=== PATIENT | female | born 1960 | race Caucasian/White ===

== ENCOUNTER 2018-10-13 23:34 | Inpatient (IN) | payer MEDICARE ==
[2018-10-13] MEDS ORDERED: DILTIAZEM DRIP BOLUS FROM BAG 1 MG SOLN IV ONE (23:44)
[2018-10-13] MEDS ORDERED: ACETAMINOPHEN TAB 325 MG TAB PO STA (23:44)
[2018-10-13] MEDS ORDERED: DILTIAZEM 125 MG in SODIUM CHLORIDE 0.9% 100 ML IV SCH (23:45)
[2018-10-13 23:48] LABS: Glucose,Whole Blood 187 mg/dL (75-99)
[2018-10-13] MEDS: SODIUM CHLORIDE 0.9% 500 ML 500 ML IV SCH ×2 (23:51→23:52)
--- NOTE | 2018-10-13 23:58 | ED ---
Nausea/Vomiting/Diarrhea HPI - General Stated complaint: altered mental status Time Seen by Provider: 10/13/18 23:41 Source: patient, EMS Mode of arrival: EMS Limitations: no limitations, altered mental status (Patient appears delirious) - History of Present Illness Initial comments: This patient is a 58-year-old woman brought by an ambulance to be evaluated for "feeling sick." The patient states that the symptoms started a number of hours ago with nausea, and then she has had she believes around 10 episodes of vomiting. She denies any pain associated with that. She also thinks that she has been having a fever. The patient is not able to give much more history, and does appear to be delirious. She is able to review her medical history. View of systems is also limited. MD complaint: nausea, vomiting -: hour(s) Description of Vomiting: food contents Associated Abdominal Pain: No Radiation: none Improves with: none Worsens with: none Associated Symptoms: fever/chills - Related Data Home Medications Medication Instructions Recorded Confirmed Albuterol Nebulized [Ventolin 2.5 mg INHALATION RT-QID 10/14/18 10/14/18 Nebulized] Atorvastatin [Lipitor] 40 mg PO HS 10/14/18 10/14/18 Budesonide/Formoterol Fumarate 1 puff INHALATION RT-BID 10/14/18 10/14/18 [Symbicort 80-4.5 Mcg Inhaler] Insulin Aspart [NovoLOG] 10 units SQ AC-TID 10/14/18 10/14/18 Insulin Detemir (Levemir) [Levemir] 40 unit SQ HS 10/14/18 10/14/18 Lisinopril 20 mg PO DAILY 10/14/18 10/14/18 Montelukast [Singulair] 10 mg PO HS 10/14/18 10/14/18 Omeprazole 20 mg PO DAILY 10/14/18 10/14/18 Sertraline [Zoloft] 50 mg PO HS 10/14/18 10/14/18 metFORMIN HCL 500 mg PO BID 10/14/18 10/14/18 predniSONE 5 mg PO DAILY 10/14/18 10/14/18 sitaGLIPtin [Januvia] 50 mg PO DAILY 10/14/18 10/14/18 Allergies Allergy/AdvReac Type Severity Reaction Status Date / Time No Known Allergies Allergy Verified 10/14/18 07:49 Review of Systems ROS Statement: Those systems with pertinent positive or pertinent negative responses have been documented in the HPI. ROS Other: All systems not noted in ROS Statement are negative. Limitations: ROS unobtainable due to patients medical condition Constitutional: Reports: fever Respiratory: Denies: cough, dyspnea Cardiovascular: Denies: chest pain, palpitations, syncope Gastrointestinal: Reports: nausea, vomiting. Denies: abdominal pain, diarrhea, hematemesis Genitourinary: Denies: dysuria Musculoskeletal: Denies: back pain Neurological: Denies: headache Past Medical History Past Medical History: Diabetes Mellitus History of Any Multi-Drug Resistant Organisms: None Reported Past Surgical History: Unable to Obtain Past Psychological History: No Psychological Hx Reported Smoking Status: Former smoker Past Alcohol Use History: None Reported Past Drug Use History: None Reported - Past Family History Mother Family Medical History: Renal Disease Father History Unknown: Yes General Exam Limitations: no limitations General appearance: alert, other (Patient appears delirious) Head exam: Present: atraumatic, normocephalic Eye exam: Present: normal appearance. Absent: scleral icterus, conjunctival injection ENT exam: Present: mucous membranes dry Neck exam: Present: normal inspection. Absent: meningismus Respiratory exam: Present: normal lung sounds bilaterally. Absent: respiratory distress, wheezes, rales, rhonchi, stridor Cardiovascular Exam: Present: tachycardia, irregular rhythm, normal heart sounds. Absent: systolic murmur, diastolic murmur, rubs, gallop GI/Abdominal exam: Present: soft. Absent: distended, tenderness, guarding, rebound, rigid, mass, pulsatile mass, hernia Extremities exam: Present: normal inspection, normal capillary refill. Absent: pedal edema, calf tenderness Back exam: Present: normal inspection. Absent: CVA tenderness (R), CVA tenderness (L) Neurological exam: Present: alert. Absent: oriented X3 (Patient oriented to person and place could not state the date.), motor sensory deficit Skin exam: Present: warm, dry, intact, normal color. Absent: rash Course Vital Signs 10/13/18 10/14/18 10/14/18 23:39 00:20 00:54 Temperature 103.1 F H 100.8 F H Pulse Rate 146 H 123 H 113 H Respiratory 24 24 24 Rate Blood Pressure 127/82 111/63 111/62 O2 Sat by Pulse 95 94 L 95 Oximetry 10/14/18 10/14/18 10/14/18 01:15 01:45 01:51 Temperature Pulse Rate 100 98 94 Respiratory 20 22 Rate Blood Pressure 122/95 98/60 O2 Sat by Pulse 95 95 Oximetry 10/14/18 10/14/18 10/14/18 02:00 02:02 02:15 Temperature 99.1 F Pulse Rate 95 92 90 Respiratory 20 20 Rate Blood Pressure 103/53 99/58 O2 Sat by Pulse 98 95 Oximetry 10/14/18 10/14/18 10/14/18 02:30 02:45 03:00 Temperature Pulse Rate 92 90 89 Respiratory 21 18 20 Rate Blood Pressure 104/58 97/54 103/63 O2 Sat by Pulse 97 96 95 Oximetry 10/14/18 10/14/18 03:15 03:30 Temperature Pulse Rate 92 90 Respiratory 22 21 Rate Blood Pressure 98/57 109/62 O2 Sat by Pulse 95 95 Oximetry Medical Decision Making - Lab Data Result diagrams: 10/14/18 06:56 10/14/18 06:56 Lab Results 10/13/18 10/13/18 10/13/18 Range/Units 23:45 23:47 23:47 WBC 10.7 H (3.8-10.6) k/uL RBC 5.11 (3.80-5.40) m/uL Hgb 14.6 (11.4-16.0) gm/dL Hct 45.3 (34.0-46.0) % MCV 88.8 (80.0-100.0) fL MCH 28.7 (25.0-35.0) pg MCHC 32.3 (31.0-37.0) g/dL RDW 13.4 (11.5-15.5) % Plt Count 203 (150-450) k/uL Neutrophils % 77 % Lymphocytes % 13 % Monocytes % 6 % Eosinophils % 1 % Basophils % 1 % Neutrophils # 8.3 H (1.3-7.7) k/uL Lymphocytes # 1.4 (1.0-4.8) k/uL Monocytes # 0.6 (0-1.0) k/uL Eosinophils # 0.1 (0-0.7) k/uL Basophils # 0.1 (0-0.2) k/uL PT (9.0-12.0) sec INR (<1.2) APTT (22.0-30.0) sec Sodium 130 L (137-145) mmol/L Potassium 2.9 L (3.5-5.1) mmol/L Chloride 93 L (98-107) mmol/L Carbon Dioxide 24 (22-30) mmol/L Anion Gap 13 mmol/L BUN 14 (7-17) mg/dL Creatinine 0.86 (0.52-1.04) mg/dL Est GFR (CKD-EPI)AfAm 86 (>60 ml/min/1.73 sqM) Est GFR (CKD-EPI)NonAf 75 (>60 ml/min/1.73 sqM) Glucose 194 H (74-99) mg/dL POC Glucose (mg/dL) 187 H (75-99) mg/dL POC Glu Associate Manager [employer] ID [facility] Plasma Lactic Acid Bola (0.7-2.0) mmol/L Calcium 8.3 L (8.4-10.2) mg/dL Magnesium 1.2 L (1.6-2.3) mg/dL Total Bilirubin 0.8 (0.2-1.3) mg/dL AST 43 H (14-36) U/L ALT 37 (9-52) U/L Alkaline Phosphatase 75 (38-126) U/L Total Protein 6.5 (6.3-8.2) g/dL Albumin 4.1 (3.5-5.0) g/dL 10/13/18 10/13/18 Range/Units 23:47 23:47 WBC (3.8-10.6) k/uL RBC (3.80-5.40) m/uL Hgb (11.4-16.0) gm/dL Hct (34.0-46.0) % MCV (80.0-100.0) fL MCH (25.0-35.0) pg MCHC (31.0-37.0) g/dL RDW (11.5-15.5) % Plt Count (150-450) k/uL Neutrophils % % Lymphocytes % % Monocytes % % Eosinophils % % Basophils % % Neutrophils # (1.3-7.7) k/uL Lymphocytes # (1.0-4.8) k/uL Monocytes # (0-1.0) k/uL Eosinophils # (0-0.7) k/uL Basophils # (0-0.2) k/uL PT 10.5 (9.0-12.0) sec INR 1.0 (<1.2) APTT 28.8 (22.0-30.0) sec Sodium (137-145) mmol/L Potassium (3.5-5.1) mmol/L Chloride (98-107) mmol/L Carbon Dioxide (22-30) mmol/L Anion Gap mmol/L BUN (7-17) mg/dL Creatinine (0.52-1.04) mg/dL Est GFR (CKD-EPI)AfAm (>60 ml/min/1.73 sqM) Est GFR (CKD-EPI)NonAf (>60 ml/min/1.73 sqM) Glucose (74-99) mg/dL POC Glucose (mg/dL) (75-99) mg/dL POC Glu Associate Manager [employer] ID Plasma Lactic Acid Bola 1.2 (0.7-2.0) mmol/L Calcium (8.4-10.2) mg/dL Magnesium (1.6-2.3) mg/dL Total Bilirubin (0.2-1.3) mg/dL AST (14-36) U/L ALT (9-52) U/L Alkaline Phosphatase (38-126) U/L Total Protein (6.3-8.2) g/dL Albumin (3.5-5.0) g/dL - EKG Data -: EKG Interpreted by [facility] EKG shows normal: axis (Normal), intervals (Normal), ST-T waves (There are ST changes concerning for possible anterolateral ischemia.) Rate: tachycardia (Approximate 155 bpm) Interpretation: other (Underlying rhythm appears to be atrial fibrillation and there is a rapid ventricular rate.) Critical Care Time Critical Care Time: Yes (30 minutes) Disposition Clinical Impression: Sepsis, Pneumonia, Hypokalemia, Hypomagnesemia, Paroxysmal atrial fibrillation with rapid ventricular response Disposition: ADMITTED IP TO THIS [facility] Condition: Fair Is patient prescribed a controlled substance at d/c from ED?: No
[2018-10-13 23:59] LABS: Basophils # (A) 0.1 k/uL (0-0.2); Basophils % (A) 1 %; Eosinophils # (A) 0.1 k/uL (0-0.7); Eosinophils % (A) 1 %; HCT 45.3 % (34.0-46.0); HGB 14.6 gm/dL (11.4-16.0); Lymphocytes # (A) 1.4 k/uL (1.0-4.8); Lymphocytes % (A) 13 %; MCH 28.7 pg (25.0-35.0); MCHC 32.3 g/dL (31.0-37.0); MCV 88.8 fL (80.0-100.0); Mean Platelet Volume 7.7; Monocytes # (A) 0.6 k/uL (0-1.0); Monocytes % (A) 6 %; Neutrophils # (A) 8.3 k/uL (1.3-7.7); Neutrophils % (A) 77 %; Platelet Count 203 k/uL (150-450); RBC 5.11 m/uL (3.80-5.40); RDW 13.4 % (11.5-15.5); WBC 10.7 k/uL (3.8-10.6)
[2018-10-14 00:11] LABS: Albumin 4.1 g/dL (3.5-5.0); Calcium 8.3 mg/dL (8.4-10.2); Magnesium 1.2 mg/dL (1.6-2.3); Potassium 2.9 mmol/L (3.5-5.1); Total Bilirubin 0.8 mg/dL (0.2-1.3); Total Protein 6.5 g/dL (6.3-8.2)
[2018-10-14 00:15] LABS: Partial Thromboplastin Time 28.8 sec (22.0-30.0); Prothrombin Time 10.5 sec (9.0-12.0)
[2018-10-14] MEDS ORDERED: SODIUM CHLORIDE 0.9% 1,000 ML IV ONE (00:26)
[2018-10-14] MEDS ORDERED: SODIUM CHLORIDE 0.9% 500 ML 500 ML IV STA (00:26)
--- NOTE | 2018-10-14 00:35 | XR ---
EXAM: XR Chest, 1 View CLINICAL HISTORY: ITS.REASON XR Reason: Fever TECHNIQUE: Frontal view of the chest. COMPARISON: No relevant prior studies available. FINDINGS: Lungs: Linear changes at the lung bases, right greater than left are noted. Pulmonary vasculature appears crowded with slightly diminished lung volumes. Pleural space: No large pleural effusion. No pneumothorax. Heart: The cardiac silhouette is within normal limits. Mediastinum: Mediastinal contours demonstrate no significant abnormality. The trachea is midline. Bones/joints: Unremarkable. IMPRESSION: Linear changes at the lung bases, right greater than left are noted. Primary consideration is platelike atelectasis. Subtle right infrahilar Infection is difficult to entirely exclude on this portable exam. Please correlate clinically.
[2018-10-14] MEDS ORDERED: POTASSIUM BICARBONATE/CIT AC 20 MEQ TABLET.EFF PO STA (00:43)
[2018-10-14] MEDS: MAGNESIUM SULFATE-D5W PMX 1 GM in DEXTROSE/WATER 1 100ML.BAG IVPB SCH ×2 (01:30→02:52)
[2018-10-14] MEDS ORDERED: ALBUTEROL NEBULIZED 2.5 MG/3 ML INHALATION STA (01:31)
[2018-10-14] MEDS ORDERED: AZITHROMYCIN 500 MG TAB PO STA (02:54)
[2018-10-14] MEDS: SODIUM CHLORIDE 0.9% 1,000 ML IV SCH ×3 (03:59→20:15)
[2018-10-14] MEDS: ACETAMINOPHEN TAB 325 MG TAB PO PRN ×2 (05:46→20:32)
[2018-10-14 06:13] LABS: Glucose,Whole Blood 179 mg/dL (75-99)
[2018-10-14 07:28] LABS: Basophils % (A) 0 %; Eosinophils % (A) 0 %; HCT 38.9 % (34.0-46.0); HGB 12.6 gm/dL (11.4-16.0); Lymphocytes # (A) 1.1 k/uL (1.0-4.8); Lymphocytes % (A) 13 %; MCH 29.1 pg (25.0-35.0); MCHC 32.4 g/dL (31.0-37.0); MCV 89.7 fL (80.0-100.0); Mean Platelet Volume 7.9; Monocytes # (A) 0.5 k/uL (0-1.0); Monocytes % (A) 6 %; Neutrophils % (A) 79 %; Platelet Count 204 k/uL (150-450); RBC 4.34 m/uL (3.80-5.40); RDW 13.5 % (11.5-15.5); WBC 8.9 k/uL (3.8-10.6)
[2018-10-14 07:37] LABS: African American GFR (CKD) >90 (>60 ml/min/1.73 sqM); Anion Gap 6 mmol/L; Blood Urea Nitrogen 10 mg/dL (7-17); Calcium 7.4 mg/dL (8.4-10.2); Carbon Dioxide 26 mmol/L (22-30); Chloride 101 mmol/L (98-107); Glucose 199 mg/dL (74-99); Potassium 3.5 mmol/L (3.5-5.1); Sodium 133 mmol/L (137-145)
[2018-10-14] MEDS: IPRATROPIUM-ALBUTEROL 3 ML NEB INHALATION PRN ×2 (09:01→12:09)
[2018-10-14 11:44] LABS: Glucose,Whole Blood 164 mg/dL (75-99)
[2018-10-14] MEDS ORDERED: INSULIN ASPART (NovoLOG) 100 UNIT/ML VIAL SQ SCH (12:30)
[2018-10-14] MEDS: MAGNESIUM OXIDE 400 MG TAB PO SCH (12:33)
[2018-10-14] MEDS: POTASSIUM CHLORIDE ER 20 MEQ TAB.ER PO SCH (12:33)
[2018-10-14 12:42] LABS: Glucose,Whole Blood 164 mg/dL (75-99)
[2018-10-14 15:02] LABS: Glucose,Whole Blood 89 mg/dL (75-99)
--- NOTE | 2018-10-14 15:36 | P.HPIM ---
History of Present Illness 58-year-old pleasant female came in with complaints of feeling sick, patient was septic with leukocytosis febrile does have infiltrate in the right lateral lower lung ortega patient is comparing of cough but unable to bring up anything patient symptoms has been going on for last 3-4 days patient was bit delirious confused as well because of infection. Patient had multiple if his as of nausea vomiting denied any diarrhea. Patient was in A. fib as well but the A. fib completely resolved with one dose of Cardizem. Echocardiogram is being obtained infectious disease was consulted. Patient doesn't have any photophobia nuchal rigidity. Patient Was started on Rocephin and azithromycin. Review of Systems REVIEW OF SYSTEMS: CONSTITUTIONAL: As mentioned in HPI HEENT: No recent visual problems or hearing problems. Denied any sore throat. CARDIOVASCULAR: No chest pain, orthopnea, PND, no palpitations, no syncope. PULMONARY: No shortness of breath, no hemoptysis. GASTROINTESTINAL: No diarrhea, no nausea, no vomiting, no abdominal pain. NEUROLOGICAL: No headaches, no weakness, no numbness. HEMATOLOGICAL: Denies any bleeding or petechiae. GENITOURINARY: Denies any burning micturition, frequency, or urgency. MUSCULOSKELETAL/RHEUMATOLOGICAL: Denies any joint pain, swelling, or any muscle pain. ENDOCRINE: Denies any polyuria or polydipsia. The rest of the 14-point review of systems is negative. Past Medical History Past Medical History: Diabetes Mellitus History of Any Multi-Drug Resistant Organisms: None Reported Past Surgical History: Unable to Obtain Additional Past Surgical History / Comment(s): Bilateral thumbs Past Anesthesia/Blood Transfusion Reactions: Postoperative Nausea & Vomiting (PONV) Past Psychological History: No Psychological Hx Reported Smoking Status: Former smoker Past Alcohol Use History: None Reported Past Drug Use History: None Reported - Past Family History Mother Family Medical History: Renal Disease Father History Unknown: Yes Medications and Allergies Home Medications Medication Instructions Recorded Confirmed Type Albuterol Nebulized [Ventolin 2.5 mg INHALATION RT-QID 10/14/18 10/14/18 History Nebulized] Atorvastatin [Lipitor] 40 mg PO HS 10/14/18 10/14/18 History Budesonide/Formoterol Fumarate 1 puff INHALATION RT-BID 10/14/18 10/14/18 History [Symbicort 80-4.5 Mcg Inhaler] Insulin Aspart [NovoLOG] 10 units SQ AC-TID 10/14/18 10/14/18 History Insulin Detemir (Levemir) [Levemir] 40 unit SQ HS 10/14/18 10/14/18 History Lisinopril 20 mg PO DAILY 10/14/18 10/14/18 History Montelukast [Singulair] 10 mg PO HS 10/14/18 10/14/18 History Omeprazole 20 mg PO DAILY 10/14/18 10/14/18 History Sertraline [Zoloft] 50 mg PO HS 10/14/18 10/14/18 History metFORMIN HCL 500 mg PO BID 10/14/18 10/14/18 History predniSONE 5 mg PO DAILY 10/14/18 10/14/18 History sitaGLIPtin [Januvia] 50 mg PO DAILY 10/14/18 10/14/18 History Allergies Allergy/AdvReac Type Severity Reaction Status Date / Time No Known Allergies Allergy Verified 10/14/18 07:49 Physical Exam Vitals: Vital Signs Temp Pulse Pulse Resp BP BP Pulse Ox 10/14/18 12:20 90 10/14/18 12:09 94 10/14/18 08:59 92 10/14/18 07:10 100.4 F H 89 18 111/71 96 10/14/18 05:26 94 18 10/14/18 05:25 100.4 F H 94 18 116/62 95 10/14/18 03:30 90 21 109/62 95 10/14/18 03:15 92 22 98/57 95 10/14/18 03:00 89 20 103/63 95 10/14/18 02:45 90 18 97/54 96 10/14/18 02:30 92 21 104/58 97 10/14/18 02:15 90 20 99/58 95 10/14/18 02:02 92 10/14/18 02:00 99.1 F 95 20 103/53 98 10/14/18 01:51 94 10/14/18 01:45 98 22 98/60 95 10/14/18 01:15 100 20 122/95 95 10/14/18 00:54 100.8 F H 113 H 24 111/62 95 10/14/18 00:20 123 H 24 111/63 94 L 10/13/18 23:39 103.1 F H 146 H 24 127/82 95 Intake and Output 10/14/18 10/14/18 10/14/18 06:59 14:59 22:59 Intake Total 600 Output Total 400 Balance 200 Intake: Oral 600 Output: Urine 400 Other: Voiding Method Toilet # Voids 1 Weight 88 kg PHYSICAL EXAMINATION: GENERAL: The patient is alert and oriented x3, patient occasionally get delirious confused when I evaluated she was not confused later nursing staff called me about her confusion probably related to her delirium from sepsis. Patient does look toxic and septic HEENT: Pupils are round and equally reacting to light. EOMI. No scleral icterus. No conjunctival pallor. Normocephalic, atraumatic. No pharyngeal erythema. No thyromegaly. CARDIOVASCULAR: S1 and S2 present. No murmurs, rubs, or gallops. PULMONARY: Chest is clear to auscultation, no wheezing or crackles. ABDOMEN: Soft, nontender, nondistended, normoactive bowel sounds. No palpable organomegaly. MUSCULOSKELETAL: No joint swelling or deformity. EXTREMITIES: No cyanosis, clubbing, or pedal edema. NEUROLOGICAL: Gross neurological examination did not reveal any focal deficits. SKIN: No rashes. Results CBC & Chem 7: 10/14/18 06:56 10/14/18 06:56 Labs: Abnormal Lab Results - Last 24 Hours (Table) 10/13/18 10/13/18 10/13/18 Range/Units 23:45 23:47 23:47 WBC 10.7 H (3.8-10.6) k/uL Neutrophils # 8.3 H (1.3-7.7) k/uL Sodium 130 L (137-145) mmol/L Potassium 2.9 L (3.5-5.1) mmol/L Chloride 93 L (98-107) mmol/L Glucose 194 H (74-99) mg/dL POC Glucose (mg/dL) 187 H (75-99) mg/dL Calcium 8.3 L (8.4-10.2) mg/dL Magnesium 1.2 L (1.6-2.3) mg/dL AST 43 H (14-36) U/L 10/14/18 10/14/18 10/14/18 Range/Units 06:12 06:56 11:41 WBC (3.8-10.6) k/uL Neutrophils # (1.3-7.7) k/uL Sodium 133 L (137-145) mmol/L Potassium (3.5-5.1) mmol/L Chloride (98-107) mmol/L Glucose 199 H (74-99) mg/dL POC Glucose (mg/dL) 179 H 164 H (75-99) mg/dL Calcium 7.4 L (8.4-10.2) mg/dL Magnesium (1.6-2.3) mg/dL AST (14-36) U/L 10/14/18 Range/Units 12:32 WBC (3.8-10.6) k/uL Neutrophils # (1.3-7.7) k/uL Sodium (137-145) mmol/L Potassium (3.5-5.1) mmol/L Chloride (98-107) mmol/L Glucose (74-99) mg/dL POC Glucose (mg/dL) 164 H (75-99) mg/dL Calcium (8.4-10.2) mg/dL Magnesium (1.6-2.3) mg/dL AST (14-36) U/L Thrombosis Risk Factor Assmnt - Choose All That Apply Any of the Below Risk Factors Present?: Yes Each Factor Represents 1 point: Age 41-60 years Thrombosis Risk Factor Assessment Total Risk Factor Score: 1 Thrombosis Risk Factor Assessment Level: Low Risk Assessment and Plan Plan: -Severe sepsis: Secondary to right lower lobe pneumonia possibly community- acquired pneumonia continue with Rocephin and azithromycin awaiting blood cultures and sputum cultures my suspicion is low for any SIGN MAKER infection as patient doesn't have any photophobia or nuchal rigidity. -Toxic encephalopathy and delirium secondary to sepsis patient becomes more delirious will have to obtain a CAT scan of the head to rule out any acute intracranial process. -Shortness of breath secondary to sepsis and pneumonia -Type 2 diabetes mellitus blood sugars are bit on the lower side help cut down the long-acting insulin this can you pre-meal insulin patient regarding on slice scale insulin -Hyperlipidemia -Lactic is doses seconded to sepsis metformin will be discontinued -Hypertension hold off on lisinopril because of sepsis and low blood pressure concerns -Possible history of COPD although not in acute exacerbation at this time -Episode of A. fib proximal probably proximal A. fib and do not believe patient will need to be on anticoagulation at this time as its only a brief episode which resolved with a dose of Cardizem echocardiogram and Bactrim and cardiology was consulted Patient will need pharmacologic GI and DVT prophylaxis
[2018-10-14] MEDS: IPRATROPIUM-ALBUTEROL 3 ML NEB INHALATION SCH ×2 (16:00→20:04)
[2018-10-14 16:25] LABS: Glucose,Whole Blood 111 mg/dL (75-99)
[2018-10-14 18:36] LABS: Appearance,Urine Clear (Clear); Bacteria,Urine Rare /hpf; Bilirubin,Urine Negative (Negative); Blood,Urine Moderate (Negative); Color,Urine Yellow; Glucose,Urine (UA) Negative (Negative); Ketones,Urine 2+ (Negative); Leukocyte Esterase,Urine Negative (Negative); Mucus,Urine Rare /hpf; Nitrite,Urine Negative (Negative); PH, Urine 5.5 (5.0-8.0); Protein,Urine Trace (Negative); RBC,Urine 8 /hpf (0-5); Specific Gravity,Urine 1.015 (1.001-1.035); Squamous Epithelial Cell,Urine 1 /hpf (0-4); Urobilinogen,Urine <2.0 mg/dL (<2.0); WBC,Urine 4 /hpf (0-5)
--- NOTE | 2018-10-14 18:56 | ECHOF ---
Referral Reason:a.fib MEASUREMENTS -------- HEIGHT: 160.0 cm WEIGHT: 88.0 kg BP: RVIDd: 2.4 cm (< 3.3) IVSd: 0.9 cm (0.6 - 1.1) LVIDd: 5.0 cm (3.9 - 5.3) LVPWd: 1.1 cm (0.6 - 1.1) IVSs: 1.8 cm LVIDs: 2.6 cm LVPWs: 2.0 cm LAESV Index (A-L): 25.96 ml/m Ao Diam: 2.6 cm (2.0 - 3.7) AV Cusp: 2.1 cm (1.5 - 2.6) LA Diam: 3.4 cm (2.7 - 3.8) MV EXCURSION: 11.323 mm (> 18.000) MV EF SLOPE: 69 mm/s (70 - 150) EPSS: 0.8 cm MV E Jason: 1.19 m/s MV DecT: 166 ms MV A Jason: 1.19 m/s MV E/A Ratio: 1.00 AV maxP.12 mmHg AV meanP.16 mmHg RAP: 5.00 mmHg RVSP: 19.00 mmHg FINDINGS -------- Sinus rhythm. Resting tachycardia (HR>100bpm). This was a technically adequate study. The left ventricular size is normal. There is mild concentric left ventricular hypertrophy. Overa ll left ventricular systolic function is normal with, an EF between 60 - 65 %. The right ventricle is normal in size. Normal LA size by volume 22+/-6 ml/m2. The right atrial size is normal. The aortic valve is trileaflet, and appears structurally normal. No aortic stenosis or regurgitation. Peak/mean gradient across the Aortic Valve is 17.12mmHg / 10.16mmHg. The mitral valve leaflets are mildly thickened. Mild mitral regurgitation is present. Mild tricuspid regurgitation present. There is no evidence of pulmonary hypertension. The right v entricular systolic pressure, as measured by Doppler, is 19.00mmHg. There is no pulmonic regurgitation present. The aortic root size is normal. Normal inferior vena cava with normal inspiratory collapse consistent with estimated right atrial pre ssure of 5 mmHg. There is no pericardial effusion. CONCLUSIONS -------- 1. Sinus rhythm. 2. Resting tachycardia (HR>100bpm). 3. This was a technically adequate study. 4. The left ventricular size is normal. 5. There is mild concentric left ventricular hypertrophy. 6. Overall left ventricular systolic function is normal with, an EF between 60 - 65 %. 7. Normal LA size by volume 22+/-6 ml/m2. 8. The aortic valve is trileaflet, and appears structurally normal. No aortic stenosis or regurgitati on. 9. Peak/mean gradient across the Aortic Valve is 17.12mmHg / 10.16mmHg. 10. The mitral valve leaflets are mildly thickened. 11. Mild mitral regurgitation is present. 12. Mild tricuspid regurgitation present. 13. There is no evidence of pulmonary hypertension. 14. There is no pulmonic regurgitation present. 15. The aortic root size is normal. 16. Normal inferior vena cava with normal inspiratory collapse consistent with estimated right atrial pressure of 5 mmHg. 17. There is no pericardial effusion. FISH RECEIVER: Shanika Griffin RDCS
[2018-10-14] MEDS: SYMBICORT 80-4.5 MCG INHALER INHALATION SCH (20:04)
[2018-10-14] MEDS: ATORVASTATIN 40 MG TAB PO SCH (20:31)
[2018-10-14] MEDS: AZITHROMYCIN 500 MG TAB PO SCH (20:31)
[2018-10-14] MEDS: SERTRALINE 50 MG TAB PO SCH (20:31)
[2018-10-14] MEDS: MONTELUKAST 10 MG TAB PO SCH (20:31)
[2018-10-14] MEDS: LOPERAMIDE 2 MG CAP PO PRN (20:32)
[2018-10-14] MEDS ORDERED: INSULIN DETEMIR (LEVEMIR) 100 UNIT/ML SYR SQ SCH (21:00)
[2018-10-14 21:02] LABS: Glucose,Whole Blood 149 mg/dL (75-99)
[2018-10-14] MEDS: INSULIN ASPART (NovoLOG) 100 UNIT/ML VIAL SQ SCH (21:05)
[2018-10-14] MEDS: INSULIN DETEMIR (LEVEMIR) 100 UNIT/ML SYR SQ SCH (21:06)
[2018-10-15] MEDS: ACETAMINOPHEN TAB 325 MG TAB PO PRN ×5 (03:09→23:01)
[2018-10-15] MEDS: SODIUM CHLORIDE 0.9% 1,000 ML IV SCH ×2 (05:38→18:32)
[2018-10-15] MEDS: LOPERAMIDE 2 MG CAP PO PRN (05:38)
[2018-10-15 05:52] LABS: Glucose,Whole Blood 208 mg/dL (75-99)
[2018-10-15 06:54] LABS: HCT 38.6 % (34.0-46.0); HGB 12.5 gm/dL (11.4-16.0); MCH 28.7 pg (25.0-35.0); MCHC 32.4 g/dL (31.0-37.0); MCV 88.4 fL (80.0-100.0); Mean Platelet Volume 8.1; Platelet Count 171 k/uL (150-450); RBC 4.36 m/uL (3.80-5.40); RDW 15.3 % (11.5-15.5); WBC 6.3 k/uL (3.8-10.6)
[2018-10-15] MEDS: INSULIN ASPART (NovoLOG) 100 UNIT/ML VIAL SQ SCH ×4 (07:01→21:06)
[2018-10-15] MEDS: PANTOPRAZOLE 40 MG TABLET PO SCH (07:01)
[2018-10-15] MEDS: IPRATROPIUM-ALBUTEROL 3 ML NEB INHALATION SCH ×4 (07:50→20:27)
[2018-10-15] MEDS: SYMBICORT 80-4.5 MCG INHALER INHALATION SCH ×2 (07:50→20:27)
[2018-10-15 08:53] LABS: African American GFR (CKD) >90 (>60 ml/min/1.73 sqM); Anion Gap 8 mmol/L; Blood Urea Nitrogen 6 mg/dL (7-17); Calcium 7.3 mg/dL (8.4-10.2); Carbon Dioxide 26 mmol/L (22-30); Chloride 99 mmol/L (98-107); Glucose 186 mg/dL (74-99); Potassium 3.6 mmol/L (3.5-5.1); Sodium 133 mmol/L (137-145)
[2018-10-15] MEDS: MAGNESIUM OXIDE 400 MG TAB PO SCH (08:54)
[2018-10-15] MEDS: POTASSIUM CHLORIDE ER 20 MEQ TAB.ER PO SCH (08:54)
[2018-10-15 11:53] LABS: Glucose,Whole Blood 178 mg/dL (75-99)
[2018-10-15] MEDS ORDERED: MENTHOL-ZINC OXIDE OINT 113 GM TUBE TOPICAL PRN (13:38)
[2018-10-15 14:15] LABS: Hemoglobin A1C 8.1 % (4.0-6.0)
--- NOTE | 2018-10-15 16:06 | P.PN ---
Subjective 58-year-old female admitted for pneumonia in the right lower lung ortega therapy to the chest x-ray today with right showing infiltrate in both lung lower lobes and a prominent fissure. Patient still febrile patient can use to be on Rocephin and azithromycin Lisa consulting infectious disease, patient's is still fatigued and malaise is in distress because of fatigue and sepsis. Continues to have high-grade fever. I'll obtain a BNP and echocardiogram as well because of bilateral lower infiltrates the possibility of effusion and a prominent fissure. He should and lungs are clear to auscultation but has saturations of 92%. Patient may require a CAT scan of the chest and pulmonary consultation. Objective - Vital Signs Vital signs: Vital Signs Temp 102.6 F H 10/15/18 14:57 Pulse 96 10/15/18 12:00 Resp 18 10/15/18 12:00 BP 118/73 10/15/18 12:00 Pulse Ox 92 L 10/15/18 12:00 Intake & Output 10/14/18 10/15/18 10/15/18 18:59 06:59 18:59 Intake Total 600 240 Output Total 400 Balance 200 240 Weight 88.3 kg Intake: Oral 600 240 Output: Urine 400 Other: Voiding Method Bedside Commode Bedside Commode # Voids 1 1 1 # Bowel Movements 1 3 - Exam PHYSICAL EXAMINATION: GENERAL: The patient is alert and oriented x3, patient today is not confused but still lethargic, overall may be bit better. HEENT: Pupils are round and equally reacting to light. EOMI. No scleral icterus. No conjunctival pallor. Normocephalic, atraumatic. No pharyngeal erythema. No thyromegaly. CARDIOVASCULAR: S1 and S2 present. No murmurs, rubs, or gallops. PULMONARY: Chest is clear to auscultation, no wheezing or crackles. ABDOMEN: Soft, nontender, nondistended, normoactive bowel sounds. No palpable organomegaly. MUSCULOSKELETAL: No joint swelling or deformity. EXTREMITIES: No cyanosis, clubbing, or pedal edema. NEUROLOGICAL: Gross neurological examination did not reveal any focal deficits. SKIN: No rashes. - Labs CBC & Chem 7: 10/15/18 06:32 10/15/18 06:32 Labs: Abnormal Lab Results - Last 24 Hours (Table) 06/10/14/18 10/14/18 Range/Units 18:06 16:24 21:01 Sodium (137-145) mmol/L BUN (7-17) mg/dL Glucose (74-99) mg/dL POC Glucose (mg/dL) 111 H 149 H (75-99) mg/dL Hemoglobin A1c (4.0-6.0) % Calcium (8.4-10.2) mg/dL Urine Protein Trace H (Negative) Urine Ketones 2+ H (Negative) Urine Blood Moderate H (Negative) Urine RBC 8 H (0-5) /hpf Urine Bacteria Rare H (None) /hpf Urine Mucus Rare H (None) /hpf 10/15/18 10/15/18 10/15/18 Range/Units 05:51 06:32 06:32 Sodium 133 L (137-145) mmol/L BUN 6 L (7-17) mg/dL Glucose 186 H (74-99) mg/dL POC Glucose (mg/dL) 208 H (75-99) mg/dL Hemoglobin A1c 8.1 H (4.0-6.0) % Calcium 7.3 L (8.4-10.2) mg/dL Urine Protein (Negative) Urine Ketones (Negative) Urine Blood (Negative) Urine RBC (0-5) /hpf Urine Bacteria (None) /hpf Urine Mucus (None) /hpf 10/15/18 Range/Units 11:52 Sodium (137-145) mmol/L BUN (7-17) mg/dL Glucose (74-99) mg/dL POC Glucose (mg/dL) 178 H (75-99) mg/dL Hemoglobin A1c (4.0-6.0) % Calcium (8.4-10.2) mg/dL Urine Protein (Negative) Urine Ketones (Negative) Urine Blood (Negative) Urine RBC (0-5) /hpf Urine Bacteria (None) /hpf Urine Mucus (None) /hpf Microbiology - Last 24 Hours (Table) 10/13/18 23:47 Blood Culture - Preliminary Blood No Growth after 24 hours 10/13/18 18:06 Urine Culture - Preliminary Urine,Voided Assessment and Plan Plan: -Severe sepsis: Secondary to right lower lobe pneumonia possibly community- acquired pneumonia continue with Rocephin and azithromycin awaiting blood cultures and sputum cultures my suspicion is low for any [employer] infection as patient doesn't have any photophobia or nuchal rigidity. -Toxic encephalopathy and delirium secondary to sepsis patient becomes more delirious will have to obtain a CAT scan of the head to rule out any acute intracranial process. -Shortness of breath secondary to sepsis and pneumonia. Patient does have bilateral lung lower lobe infiltrates bilateral pleural effusions cannot be ruled out with a prominent fissure on the chest x-ray because of which I'm obtaining a BNP and echocardiogram showed ejection fraction of 65% with concentric left ventricular hypertrophy there may be a competent of gastro- dysfunction with acute exacerbation, IV fluids will be discontinued for now. -Type 2 diabetes mellitus, patient will be continued on present regimen. Patient's hemoglobin A1c is 8.0 -Hyperlipidemia -Lactic is doses seconded to sepsis metformin was discontinued -Hypertension hold off on lisinopril because of sepsis and low blood pressure concerns -Possible history of COPD although not in acute exacerbation at this time -Episode of A. fib proximal probably proximal A. fib and do not believe patient will need to be on anticoagulation at this time as its only a brief episode which resolved with a dose of Cardizem echocardiogram, cardiology evaluated the patient
--- NOTE | 2018-10-15 16:16 | XR ---
EXAMINATION TYPE: XR chest 2V DATE OF EXAM: 10/15/2018 COMPARISON: 10/14/2018 HISTORY: 58-year-old female cough and congestion, pneumonia TECHNIQUE: AP and lateral views FINDINGS: Heart margins are largely obscured by adjacent pleural parenchymal opacity. Mild diffuse interstitial prominence. Small effusions with prominent bibasilar patchy densities. IMPRESSION: 1. Correlate for possible mild CHF. 2. Small bilateral pleural effusions with prominent bibasilar infiltrates, right greater than left. U nderlying pneumonia not excluded. Worsening from 10/14/2018.
[2018-10-15 16:42] LABS: Glucose,Whole Blood 261 mg/dL (75-99)
[2018-10-15] MEDS ORDERED: VANCOMYCIN IV PER PHARMACY 1 EACH MISC MISCELLANE PRN (20:27)
[2018-10-15] MEDS ORDERED: RX INFO: IV CONTRAST WAS GIVEN 1 EACH MISC MISCELLANE PRN (20:29)
[2018-10-15 20:36] LABS: Glucose,Whole Blood 192 mg/dL (75-99)
[2018-10-15] MEDS ORDERED: VANCOMYCIN 1,750 MG in SODIUM CHLORIDE 0.9% 500 ML 500 ML IVPB ONE (21:00)
[2018-10-15] MEDS: SERTRALINE 50 MG TAB PO SCH (21:05)
[2018-10-15] MEDS: AZITHROMYCIN 500 MG TAB PO SCH (21:05)
[2018-10-15] MEDS: ATORVASTATIN 40 MG TAB PO SCH (21:05)
[2018-10-15] MEDS: MONTELUKAST 10 MG TAB PO SCH (21:05)
[2018-10-15] MEDS: INSULIN DETEMIR (LEVEMIR) 100 UNIT/ML SYR SQ SCH (21:06)
[2018-10-15] MEDS: PIPERACILLIN-TAZOBACTAM 3.375 GM in SODIUM CHLORIDE 0.9% 100 ML IVPB SCH (21:11)
--- NOTE | 2018-10-15 21:55 | CT ---
EXAMINATION TYPE: CT chest w con DATE OF EXAM: 10/15/2018 COMPARISON: Radiograph same day HISTORY: 58-year-old female Abnormal CXR. Pneumonia. TECHNIQUE: Contiguous axial scanning of the chest after the administration of 100 mL of Isovue 300. Coronal/sagittal reconstructions performed. CT DLP: 411.9mGycm. Automatic exposure control utilized for a dose reduction. FINDINGS: Circumscribed 8 mm nodule central posterior left breast can be correlated with routine mammography. Heart mildly enlarged without pericardial effusion. Mild LAD calcification. Aorta normal caliber with a conventional arch vessel branching anatomy. Borderline enlarged 1 cm right tracheobronchial angle lymph node. Otherwise, no thoracic lymphadenopa thy by CT size criteria. Biapical pleural parenchymal scarring. There is partial right middle lobe consolidation and consolidation of the basilar right lower lobe. P artial atelectasis inferior lingula and subsegmental atelectasis left lower lobe. No pleural effusion s. Visualized upper abdomen shows an anterior splenule. Bones: No osseous destructive process. IMPRESSION: 1. Partial consolidation right middle lobe and complete consolidation involving the basilar segments of the right lower lobe. Correlate for pneumonia. Follow-up recommended after treatment. 2. Partial atelectasis/infiltrate inferior lingula and bands of atelectasis in the left lower lobe. 3. No pleural effusion. 4. Outpatient mammography is recommended if routine screening is not being performed in this patient. There is an 8 mm central posterior nodule in the left breast.
[2018-10-16] MEDS: KETOROLAC 30 MG/ML 1 ML VIAL IVP SCH ×4 (00:23→21:11)
[2018-10-16 05:45] LABS: Glucose,Whole Blood 145 mg/dL (75-99)
[2018-10-16] MEDS: PIPERACILLIN-TAZOBACTAM 3.375 GM in SODIUM CHLORIDE 0.9% 100 ML IVPB SCH ×3 (05:57→21:12)
[2018-10-16] MEDS: PANTOPRAZOLE 40 MG TABLET PO SCH (06:37)
[2018-10-16] MEDS: INSULIN ASPART (NovoLOG) 100 UNIT/ML VIAL SQ SCH ×4 (06:37→21:12)
[2018-10-16] MEDS: SYMBICORT 80-4.5 MCG INHALER INHALATION SCH ×2 (07:24→20:09)
[2018-10-16] MEDS: IPRATROPIUM-ALBUTEROL 3 ML NEB INHALATION SCH ×4 (07:24→20:09)
[2018-10-16] MEDS: POTASSIUM CHLORIDE ER 20 MEQ TAB.ER PO SCH ×4 (09:20→15:47)
[2018-10-16] MEDS: ACETAMINOPHEN TAB 325 MG TAB PO PRN ×2 (09:20→15:45)
[2018-10-16] MEDS: MAGNESIUM OXIDE 400 MG TAB PO SCH (09:20)
[2018-10-16] MEDS: VANCOMYCIN 1,500 MG in SODIUM CHLORIDE 0.9% 250 ML IVPB SCH ×2 (09:21→21:12)
[2018-10-16 09:31] LABS: Basophils % (A) 0 %; Eosinophils % (A) 0 %; HCT 36.4 % (34.0-46.0); HGB 11.9 gm/dL (11.4-16.0); Lymphocytes # (A) 1.1 k/uL (1.0-4.8); Lymphocytes % (A) 17 %; MCH 28.8 pg (25.0-35.0); MCHC 32.7 g/dL (31.0-37.0); Mean Platelet Volume 8.3; Monocytes # (A) 0.2 k/uL (0-1.0); Monocytes % (A) 3 %; Neutrophils # (A) 4.9 k/uL (1.3-7.7); Neutrophils % (A) 78 %; Platelet Count 173 k/uL (150-450); RBC 4.14 m/uL (3.80-5.40); WBC 6.2 k/uL (3.8-10.6)
[2018-10-16 09:39] LABS: African American GFR (CKD) >90 (>60 ml/min/1.73 sqM); Anion Gap 5 mmol/L; Blood Urea Nitrogen 8 mg/dL (7-17); Calcium 7.3 mg/dL (8.4-10.2); Carbon Dioxide 29 mmol/L (22-30); Chloride 98 mmol/L (98-107); Glucose 174 mg/dL (74-99); Potassium 3.4 mmol/L (3.5-5.1); Sodium 132 mmol/L (137-145)
[2018-10-16] MEDS: APIXABAN 5 MG TAB PO SCH ×2 (10:43→21:11)
[2018-10-16] MEDS: METOPROLOL TARTRATE 12.5 MG TAB PO SCH ×2 (10:43→21:09)
[2018-10-16] MEDS ORDERED: Potassium Replacement Protocol 1 EACH MISC MISCELLANE PRN (11:13)
[2018-10-16] MEDS ORDERED: Magnesium Replacement Protocol 1 EACH MISC MISCELLANE PRN (11:14)
[2018-10-16] MEDS: LOPERAMIDE 2 MG CAP PO PRN (11:32)
[2018-10-16 11:37] LABS: Glucose,Whole Blood 156 mg/dL (75-99)
--- NOTE | 2018-10-16 12:24 | P.PN ---
Subjective 58-year-old female admitted for pneumonia in the right lower lung ortega therapy to the chest x-ray today with right showing infiltrate in both lung lower lobes and a prominent fissure. Patient still febrile patient can use to be on Rocephin and azithromycin Lisa consulting infectious disease, patient's is still fatigued and malaise is in distress because of fatigue and sepsis. Continues to have high-grade fever. I'll obtain a BNP and echocardiogram as well because of bilateral lower infiltrates the possibility of effusion and a prominent fissure. He should and lungs are clear to auscultation but has saturations of 92%. Patient may require a CAT scan of the chest and pulmonary consultation. 10/16/2018 Patient looks much better today feels better today. Patient CAT scan of the chest which showed significant consolidation of the right middle lobe and by lateral lower lobes most probably pneumonia patient was evaluated pulmonary and infectious disease patient was started on the Lasix empirically by pulmonology. Patient's sister Zosyn and vancomycin by infectious disease. Constitutional: Patient significant improved compared to yesterday Cardio vascular: denied any chest pain, palpitations Gastrointestinal denied any nausea vomiting Pulmonary: Denied any shortness of breath cough Neurologic denied any new focal deficits All inpatient medications were reviewed and appropriate changes in these medications as dictated in the interval history and assessment and plan. Objective - Vital Signs Vital signs: Vital Signs Temp 99.5 F 10/16/18 10:50 Pulse 80 10/16/18 11:14 Resp 18 10/16/18 08:00 BP 114/74 10/16/18 08:00 Pulse Ox 96 10/16/18 08:00 Intake & Output 10/15/18 10/16/18 10/16/18 18:59 06:59 18:59 Intake Total 600 237 Balance 600 237 Weight 89.2 kg Intake: Oral 600 237 Other: Voiding Method Bedside Commode Bedside Commode Bedside Commode # Voids 3 1 2 # Bowel Movements 3 2 - Exam PHYSICAL EXAMINATION: GENERAL: The patient is alert and oriented x3, not in acute distress. HEENT: Pupils are round and equally reacting to light. EOMI. No scleral icterus. No conjunctival pallor. Normocephalic, atraumatic. No pharyngeal erythema. No thyromegaly. CARDIOVASCULAR: S1 and S2 present. No murmurs, rubs, or gallops. PULMONARY: Chest is clear to auscultation, no wheezing or crackles. ABDOMEN: Soft, nontender, nondistended, normoactive bowel sounds. No palpable organomegaly. MUSCULOSKELETAL: No joint swelling or deformity. EXTREMITIES: No cyanosis, clubbing, or pedal edema. NEUROLOGICAL: Gross neurological examination did not reveal any focal deficits. SKIN: No rashes. - Labs CBC & Chem 7: 10/16/18 09:11 10/16/18 09:11 Labs: Abnormal Lab Results - Last 24 Hours (Table) 10/15/18 10/15/18 10/15/18 Range/Units 06:32 16:41 20:34 Sodium (137-145) mmol/L Potassium (3.5-5.1) mmol/L Glucose (74-99) mg/dL POC Glucose (mg/dL) 261 H 192 H (75-99) mg/dL Hemoglobin A1c 8.1 H (4.0-6.0) % Calcium (8.4-10.2) mg/dL 10/16/18 10/16/18 10/16/18 Range/Units 05:44 09:11 11:35 Sodium 132 L (137-145) mmol/L Potassium 3.4 L (3.5-5.1) mmol/L Glucose 174 H (74-99) mg/dL POC Glucose (mg/dL) 145 H 156 H (75-99) mg/dL Hemoglobin A1c (4.0-6.0) % Calcium 7.3 L (8.4-10.2) mg/dL Microbiology - Last 24 Hours (Table) 10/13/18 23:47 Blood Culture - Preliminary Blood No Growth after 48 hours 10/13/18 18:06 Urine Culture - Final Urine,Voided Assessment and Plan Plan: -Severe sepsis: Secondary to right lower lobe pneumonia possibly community- acquired pneumonia since there is no improvement in improvement with significant worsening to bilateral lower lobes of the chest. Patient was switched to vancomycin and Zosyn by infectious disease CAT scan of the chest as mentioned above awaiting blood cultures and sputum cultures my suspicion is low for any [employer] infection as patient doesn't have any photophobia or nuchal rigidity. -Toxic encephalopathy and delirium secondary to sepsis patient . -Shortness of breath secondary to sepsis and pneumonia. Patient's BNP is 250 -Type 2 diabetes mellitus, patient will be continued on present regimen. Patient's hemoglobin A1c is 8.0 -Hyperlipidemia -Lactic is doses seconded to sepsis metformin was discontinued -Hypertension hold off on lisinopril because of sepsis and low blood pressure concerns -Possible history of COPD although not in acute exacerbation at this time -Episode of A. fib proximal probably proximal A. fib patient was started on anticoagulation by cardiology presently rate controlled sinus rhythm
[2018-10-16] MEDS: MAGNESIUM SULFATE-D5W PMX 1 GM in DEXTROSE/WATER 1 100ML.BAG IVPB SCH ×2 (12:37→15:46)
[2018-10-16] MEDS ORDERED: DIPHENOX-ATROP 2.5-0.025 MG 1 EACH TAB PO PRN (15:45)
--- NOTE | 2018-10-16 16:00 | P.CONS ---
History of Present Illness - Reason for Consult Consult date: 10/16/18 - Chief Complaint Fever and shortness of breath - History of Present Illness 58 -year-old female with history of diabetes mellitus type 2 generally is completely independent relates to approximate 4 day history of feeling poorly. She started to feel fever chills generalized malaise cough with yellowish sputum production and no hemoptysis. Her fever increased she felt weak and confused and was brought to the emergency center. There she has not evidence of a high-grade fever leukocytosis and sepsis as well as atrial fibrillation, she was treated with a dose of Cardizem with hydration and resolution of her A. fib. The patient continued to feel ill continue to have ongoing fevers because of the consult was requested. At the time of the consult antibiotic therapy was altered and anti-inflammatory with Toradol was requested and the patient is feeling considerably better today. After the first dorsal Toradol her sugar went from 103.5-99.5. The highest it's been so far today is 101.5. Patient does feel poorly still. She has shortness of breath or oxygen therapy she has cough without much sputum production or hemoptysis does have discomfort in her chest with coughing. Review of Systems HEENT:Denies headache or acute visual change. Denies sinus or mouth discomforts. Denies neck stiffness or pain. Denies significant oral cavity pain. Denies difficulty on swallowing. Lungs: As per the HPI significant shortness of breath she has cough and production of hemoptysis. Chest wall pain Cardiovascular: Significant shortness of breath dyspnea with exertion no orthopnea or PND no syncope did have palpitations now resolved Gastrointestinal:Denies nausea, vomiting, diarrhea, constipation, hematemesis, melena, hematochezia. No no significant change of bowel habit noticed. Musculoskeletal: denies significant myalgias or arthralgias. No new joint swelling. Denies new back pain. Skin: Denies new rash or lesions. No new ulcers or wounds are related.. Neuro: Has had headache but no visual change. Denies any new onset weakness or difficulty with ambulation. Denies falls or seizures. Psychiatric:Denies anxiety or depression. Endocrine: Denies significant fatigue, denies significant weight loss or weight gain. Past Medical History Past Medical History: Diabetes Mellitus History of Any Multi-Drug Resistant Organisms: None Reported Past Surgical History: Unable to Obtain Additional Past Surgical History / Comment(s): Bilateral thumbs Past Anesthesia/Blood Transfusion Reactions: Postoperative Nausea & Vomiting (PONV) Past Psychological History: No Psychological Hx Reported Smoking Status: Former smoker Past Alcohol Use History: None Reported Past Drug Use History: None Reported - Past Family History Mother Family Medical History: Renal Disease Father History Unknown: Yes Medications and Allergies Home Medications and Allergies Comment(s): Current Medications Acetaminophen (Tylenol Tab) 650 mg PO Q4H PRN PRN Reason: Fever Last Admin: 10/16/18 09:20 Dose: 650 mg Documented by: Albuterol/Ipratropium (Duoneb 0.5 Mg-3 Mg/3 Ml Soln) 3 ml INHALATION RT-QID [facility] Last Admin: 10/16/18 11:02 Dose: 3 ml Documented by: Apixaban (Eliquis) 5 mg PO BID [facility] Last Admin: 10/16/18 10:43 Dose: 5 mg Documented by: Atorvastatin Calcium (Lipitor) 40 mg PO [facility] Last Admin: 10/15/18 21:05 Dose: 40 mg Documented by: Azithromycin (Zithromax) 500 mg PO [facility] Last Admin: 10/15/18 21:05 Dose: 500 mg Documented by: Budesonide/Formoterol Fumarate (Symbicort 80-4.5 Mcg Inhaler) 1 puff INHALATION RT-BID [facility] Last Admin: 10/16/18 07:24 Dose: 1 puff Documented by: Calamine/Phenol (Calmoseptine Oint) 1 applic TOPICAL QID PRN PRN Reason: Skin Irritation Diphenoxylate HCl/Atropine (Lomotil) 1 each PO Q6HR PRN PRN Reason: Diarrhea Piperacillin Sod/Tazobactam (Sod 3.375 gm/ Sodium Chloride) 100 mls @ 25 mls/hr IVPB Q8H [facility] Last Admin: 10/16/18 12:39 Dose: 25 mls/hr Documented by: Vancomycin HCl 1,500 mg/ (Sodium Chloride) 250 mls @ 125 mls/hr IVPB Q12H [facility] Last Admin: 10/16/18 09:21 Dose: 125 mls/hr Documented by: Insulin Aspart (Novolog) 0 unit SQ [facility]; Protocol Last Admin: 10/16/18 12:40 Dose: 2 unit Documented by: Insulin Detemir (Levemir) 25 unit SQ [facility] Last Admin: 10/15/18 21:06 Dose: 25 unit Documented by: Ketorolac Tromethamine (Toradol) 30 mg IVP Q6H [facility] Stop: 10/21/18 16:01 Magnesium Oxide (Mag-Ox) 400 mg PO DAILY [facility] Last Admin: 10/16/18 09:20 Dose: 400 mg Documented by: Metoprolol Tartrate (Lopressor) 12.5 mg PO BID [facility] Last Admin: 10/16/18 10:43 Dose: 12.5 mg Documented by: Miscellaneous Information (Rx Info: Iv Contrast Was Given) 1 each MISCELLANE DAILY PRN PRN Reason: Per Protocol Stop: 10/17/18 20:30 Miscellaneous Information (Vancomycin Trough Due) 0 each MISCELLANE DIRECTED ONE Stop: 10/17/18 08:01 Miscellaneous Information (Magnesium Per Protocol) 1 each MISCELLANE DAILY PRN; Protocol PRN Reason: Per Protocol Miscellaneous Information (Potassium Per Protocol) 1 each MISCELLANE DAILY PRN; Protocol PRN Reason: Per Protocol Montelukast Sodium (Singulair) 10 mg PO [facility] Last Admin: 10/15/18 21:05 Dose: 10 mg Documented by: Pantoprazole Sodium (Protonix) 40 mg PO AC-BRKFST [facility] Last Admin: 10/16/18 06:37 Dose: 40 mg Documented by: Potassium Chloride (K-Dur 20) 20 meq PO DAILY [facility] Last Admin: 10/16/18 09:20 Dose: 20 meq Documented by: Sertraline HCl (Zoloft) 50 mg PO [facility] Last Admin: 10/15/18 21:05 Dose: 50 mg Documented by: Home Medications Medication Instructions Recorded Confirmed Type Albuterol Nebulized [Ventolin 2.5 mg INHALATION RT-QID 10/14/18 10/14/18 History Nebulized] Atorvastatin [Lipitor] 40 mg PO 10/14/18 10/14/18 History Budesonide/Formoterol Fumarate 1 puff INHALATION RT-BID 10/14/18 10/14/18 History [Symbicort 80-4.5 Mcg Inhaler] Insulin Aspart [NovoLOG] 10 units SQ AC-TID 10/14/18 10/14/18 History Insulin Detemir (Levemir) [Levemir] 40 unit SQ 10/14/18 10/14/18 History Lisinopril 20 mg PO DAILY 10/14/18 10/14/18 History Montelukast [Singulair] 10 mg PO HS 10/14/18 10/14/18 History Omeprazole 20 mg PO DAILY 10/14/18 10/14/18 History Sertraline [Zoloft] 50 mg PO HS 10/14/18 10/14/18 History metFORMIN HCL 500 mg PO BID 10/14/18 10/14/18 History predniSONE 5 mg PO DAILY 10/14/18 10/14/18 History sitaGLIPtin [Januvia] 50 mg PO DAILY 10/14/18 10/14/18 History Allergies Allergy/AdvReac Type Severity Reaction Status Date / Time No Known Allergies Allergy Verified 10/14/18 07:49 Physical Exam Vitals: Vital Signs Temp Pulse Pulse Resp BP Pulse Ox 10/16/18 12:00 99.6 F 78 18 113/77 98 10/16/18 11:14 80 10/16/18 11:02 80 10/16/18 10:50 99.5 F 10/16/18 08:00 100.1 F H 80 18 114/74 96 10/16/18 07:37 80 10/16/18 07:27 76 10/16/18 06:41 100.1 F H 10/16/18 06:02 102.4 F H 10/16/18 03:49 68 18 10/16/18 03:26 99.1 F 68 18 94/60 95 10/16/18 01:05 99.4 F 10/16/18 00:26 100.1 F H 10/16/18 00:00 99 18 10/15/18 23:26 101.5 F H 99 18 121/71 93 L 10/15/18 22:14 99.3 F 10/15/18 21:05 100.2 F H 10/15/18 20:38 90 10/15/18 20:27 88 93 L 10/15/18 20:00 102.9 F H 94 18 128/71 93 L 10/15/18 18:48 101.0 F H 10/15/18 18:00 103.0 F H 10/15/18 16:33 92 10/15/18 16:21 92 10/15/18 16:00 99.6 F 74 18 121/59 94 L Intake and Output 10/16/18 10/16/18 10/16/18 06:59 14:59 22:59 Intake Total 837 Balance 837 Intake: Oral 837 Other: Voiding Method Bedside Commode Bedside Commode # Voids 1 1 # Bowel Movements 1 Weight 89.2 kg 58 -year-old woman, overweight build and somewhat uncomfortable HEENT: Anicteric conjunctiva are pink and moist nasal mucosa grossly intact without significant lesions, there is no thrush. Neck: The neck is supple without significant lymphadenopathy or thyromegaly. Lungs: Symmetrical bilateral air entry, markedly diminished breath sounds to the right base with egophony being noted a few crackles at the right posterior mid zone, posterior left lower zone also with crackles no distinct egophony nor dull ness in either area some expiratory wheezes are scattered Heart: Regular rate and rhythm with an audible S1-S2, no S3 no S4. There is no significant murmur click or rub, PMI was nondisplaced. Abdomen: Obese, Positive bowel sounds soft and nontender without palpable masses or organomegaly. There was no guarding or rebound. Extremities: The upper extremities have excellent pulses they are symmetric, no significant petechiae or telangiectasia. No splinter hemorrhages were noted. The lower extremities are free from significant edema. The peripheral pulses were 2+ and symmetric. Neuro: Awake alert oriented to person place and time. There are no acute new gross focal sensory motor deficits. Results CBC & Chem 7: 10/16/18 09:11 10/16/18 09:11 Labs: Abnormal Lab Results - Last 24 Hours (Table) 10/15/18 10/15/18 10/16/18 Range/Units 16:41 20:34 05:44 Sodium (137-145) mmol/L Potassium (3.5-5.1) mmol/L Glucose (74-99) mg/dL POC Glucose (mg/dL) 261 H 192 H 145 H (75-99) mg/dL Calcium (8.4-10.2) mg/dL 10/16/18 10/16/18 Range/Units 09:11 11:35 Sodium 132 L (137-145) mmol/L Potassium 3.4 L (3.5-5.1) mmol/L Glucose 174 H (74-99) mg/dL POC Glucose (mg/dL) 156 H (75-99) mg/dL Calcium 7.3 L (8.4-10.2) mg/dL Microbiology - Last 24 Hours (Table) 10/13/18 23:47 Blood Culture - Preliminary Blood No Growth after 48 hours 10/13/18 18:06 Urine Culture - Final Urine,Voided Laboratory Results WBC 6.2 k/uL (3.8-10.6) 10/16/18 09:11 RBC 4.14 m/uL (3.80-5.40) 10/16/18 09:11 Hgb 11.9 gm/dL (11.4-16.0) 10/16/18 09:11 Hct 36.4 % (34.0-46.0) 10/16/18 09:11 MCV 88.0 fL (80.0-100.0) 10/16/18 09:11 MCH 28.8 pg (25.0-35.0) 10/16/18 09:11 MCHC 32.7 g/dL (31.0-37.0) 10/16/18 09:11 RDW 14.0 % (11.5-15.5) 10/16/18 09:11 Plt Count 173 k/uL (150-450) 10/16/18 09:11 Neutrophils % 78 % 10/16/18 09:11 Lymphocytes % 17 % 10/16/18 09:11 Monocytes % 3 % 10/16/18 09:11 Eosinophils % 0 % 10/16/18 09:11 Basophils % 0 % 10/16/18 09:11 Neutrophils # 4.9 k/uL (1.3-7.7) 10/16/18 09:11 Lymphocytes # 1.1 k/uL (1.0-4.8) 10/16/18 09:11 Monocytes # 0.2 k/uL (0-1.0) 10/16/18 09:11 Eosinophils # 0.0 k/uL (0-0.7) 10/16/18 09:11 Basophils # 0.0 k/uL (0-0.2) 10/16/18 09:11 PT 10.5 sec (9.0-12.0) 10/13/18 23:47 INR 1.0 (<1.2) 10/13/18 23:47 APTT 28.8 sec (22.0-30.0) 10/13/18 23:47 Sodium 132 mmol/L (137-145) L 10/16/18 09:11 Potassium 3.4 mmol/L (3.5-5.1) L 10/16/18 09:11 Chloride 98 mmol/L (98-107) 10/16/18 09:11 Carbon Dioxide 29 mmol/L (22-30) 10/16/18 09:11 Anion Gap 5 mmol/L 10/16/18 09:11 BUN 8 mg/dL (7-17) 10/16/18 09:11 Creatinine 0.70 mg/dL (0.52-1.04) 10/16/18 09:11 Est GFR (CKD-EPI)AfAm >90 (>60 ml/min/1.73 sqM) 10/16/18 09:11 Est GFR (CKD-EPI)NonAf >90 (>60 ml/min/1.73 sqM) 10/16/18 09:11 Glucose 174 mg/dL (74-99) H 10/16/18 09:11 POC Glucose (mg/dL) 156 mg/dL (75-99) H 10/16/18 11:35 POC Glu [employer] BRIANDA [employer] Low 10/16/18 11:[address] Glu mg/dL 186 10/15/18 06:32 Hemoglobin A1c 8.1 % (4.0-6.0) H 10/15/18 06:32 Plasma Lactic Acid Bola 0.7 mmol/L (0.7-2.0) 10/16/18 03:30 Calcium 7.3 mg/dL (8.4-10.2) L 10/16/18 09:11 Magnesium 1.9 mg/dL (1.6-2.3) 10/16/18 09:11 Total Bilirubin 0.8 mg/dL (0.2-1.3) 10/13/18 23:47 AST 43 U/L (14-36) H 10/13/18 23:47 ALT 37 U/L (9-52) 10/13/18 23:47 Alkaline Phosphatase 75 U/L (38-126) 10/13/18 23:47 NT-Pro-B Natriuret Pep 256 pg/mL 10/15/18 06:32 Total Protein 6.5 g/dL (6.3-8.2) 10/13/18 23:47 Albumin 4.1 g/dL (3.5-5.0) 10/13/18 23:47 Urine Color Yellow 10/13/18 18:06 Urine Appearance Clear (Clear) 10/13/18 18:06 Urine pH 5.5 (5.0-8.0) 10/13/18 18:06 Ur Specific Metcalfe 1.015 (1.001-1.035) 10/13/18 18:06 Urine Protein Trace (Negative) H 10/13/18 18:06 Urine Glucose (UA) Negative (Negative) 10/13/18 18:06 Urine Ketones 2+ (Negative) H 10/13/18 18:06 Urine Blood Moderate (Negative) H 10/13/18 18:06 Urine Nitrite Negative (Negative) 10/13/18 18:06 Urine Bilirubin Negative (Negative) 10/13/18 18:06 Urine Urobilinogen <2.0 mg/dL (<2.0) 10/13/18 18:06 Ur Leukocyte Esterase Negative (Negative) 10/13/18 18:06 Urine RBC 8 /hpf (0-5) H 10/13/18 18:06 Urine WBC 4 /hpf (0-5) 10/13/18 18:06 Ur Squamous Epith Cells 1 /hpf (0-4) 10/13/18 18:06 Urine Bacteria Rare /hpf (None) H 10/13/18 18:06 Urine Mucus Rare /hpf (None) H 10/13/18 18:06 C. difficile (EIA) Intrp Negative (Negative) 10/14/18 19:48 Microbiology 10/13/18 23:47 Blood Blood Culture - Preliminary No Growth after 48 hours 10/13/18 18:06 Urine,Voided Urine Culture - Final CT scan - chest: report reviewed (Evidence of the extensive consolidation of the right middle lobe and right lower lobe as well as left lower lobe) Assessment and Plan (1) Paroxysmal atrial fibrillation with rapid ventricular response Current Visit: Yes Status: Acute Code(s): I48.0 - PAROXYSMAL ATRIAL FIBRILLATION SNOMED Code(s): 933113382 (2) Bilateral pneumonia Narrative/Plan: 58-year-old female presents to hospital with a several-day history of increasing illness this is high-grade fever chills or malaise and cough without much sputum production. There is evidence of pneumonia minimally by chest x-ray the patient was remaining very ill with fevers of 103 despite antibiotic therapy. A consult was requested and at that time antibiotic therapy was altered to cover for gram negatives including Pseudomonas as well as resistant gram-positive pathogen such as MRSA and vancomycin was added. For fever Toradol was added given the normal renal function and there is no evidence of improvement of how the patient is feeling with this. Fevers have trended to improvement. Will allow further doses of Toradol Renal function to be followed The patient is requiring oxygen therapy and this is being monitored also. Blood glucoses are being monitored. Leukocytosis is trending to improvement Diarrhea did occur and C. diff testing was negative. Lomotil be requested to improve some diarrhea patient encouraged to utilize yogurt with meals. Current Visit: Yes Status: Acute Code(s): J18.9 - PNEUMONIA, UNSPECIFIED ORGANISM SNOMED Code(s): 451482387 (3) Fever Current Visit: Yes Status: Acute Code(s): R50.9 - FEVER, UNSPECIFIED SNOMED Code(s): 780634635 (4) Leukocytosis Current Visit: Yes Status: Acute Code(s): D72.829 - ELEVATED WHITE BLOOD CELL COUNT, UNSPECIFIED SNOMED Code(s): 644438532
[2018-10-16] MEDS ORDERED: methylPREDNISolone SOD SUCCI 125 MG/2 ML VIAL IV STA (16:24)
[2018-10-16 16:46] LABS: Glucose,Whole Blood 205 mg/dL (75-99)
[2018-10-16 17:37] LABS: Glucose,Whole Blood 183 mg/dL (75-99)
[2018-10-16 20:27] LABS: Glucose,Whole Blood 241 mg/dL (75-99)
[2018-10-16] MEDS ORDERED: METOPROLOL TARTRATE 12.5 MG TAB PO SCH (21:00)
[2018-10-16] MEDS: ATORVASTATIN 40 MG TAB PO SCH (21:08)
[2018-10-16] MEDS: MONTELUKAST 10 MG TAB PO SCH (21:09)
[2018-10-16] MEDS: methylPREDNISolone SOD SUCCI 40 MG/ML 1 ML VIAL IV SCH (21:09)
[2018-10-16] MEDS: INSULIN DETEMIR (LEVEMIR) 100 UNIT/ML SYR SQ SCH (21:13)
[2018-10-16] MEDS: SERTRALINE 50 MG TAB PO SCH (21:39)
[2018-10-16] MEDS: AZITHROMYCIN 500 MG TAB PO SCH (21:39)
[2018-10-17] MEDS: KETOROLAC 30 MG/ML 1 ML VIAL IVP SCH ×4 (03:53→21:29)
[2018-10-17] MEDS: PIPERACILLIN-TAZOBACTAM 3.375 GM in SODIUM CHLORIDE 0.9% 100 ML IVPB SCH ×3 (05:20→20:15)
[2018-10-17] MEDS ORDERED: DILTIAZEM 125 MG in SODIUM CHLORIDE 0.9% 100 ML IV SCH (06:45)
[2018-10-17 06:52] LABS: Glucose,Whole Blood 261 mg/dL (75-99)
[2018-10-17] MEDS: IPRATROPIUM-ALBUTEROL 3 ML NEB INHALATION SCH ×4 (07:03→19:46)
[2018-10-17] MEDS: INSULIN ASPART (NovoLOG) 100 UNIT/ML VIAL SQ SCH ×5 (07:07→21:29)
[2018-10-17] MEDS: SYMBICORT 80-4.5 MCG INHALER INHALATION SCH ×2 (07:15→19:46)
[2018-10-17] MEDS ORDERED: VANCOMYCIN TROUGH DUE 1 EACH MISC MISCELLANE ONE (08:00)
[2018-10-17 08:26] LABS: HGB 12.6 gm/dL (11.4-16.0); MCH 28.5 pg (25.0-35.0); MCHC 32.4 g/dL (31.0-37.0); MCV 88.1 fL (80.0-100.0); Mean Platelet Volume 8.5; Platelet Count 190 k/uL (150-450); RBC 4.42 m/uL (3.80-5.40); RDW 14.6 % (11.5-15.5); WBC 9.1 k/uL (3.8-10.6)
[2018-10-17 08:36] LABS: African American GFR (CKD) >90 (>60 ml/min/1.73 sqM); Anion Gap 8 mmol/L; Blood Urea Nitrogen 14 mg/dL (7-17); Calcium 7.5 mg/dL (8.4-10.2); Carbon Dioxide 24 mmol/L (22-30); Chloride 99 mmol/L (98-107); Glucose 288 mg/dL (74-99); Magnesium 2.6 mg/dL (1.6-2.3); Potassium 4.3 mmol/L (3.5-5.1); Sodium 131 mmol/L (137-145)
[2018-10-17] MEDS: APIXABAN 5 MG TAB PO SCH ×2 (08:48→20:15)
[2018-10-17] MEDS: PANTOPRAZOLE 40 MG TABLET PO SCH (08:48)
[2018-10-17] MEDS: MAGNESIUM OXIDE 400 MG TAB PO SCH (08:48)
[2018-10-17] MEDS: METOPROLOL TARTRATE 12.5 MG TAB PO SCH (08:48)
[2018-10-17] MEDS: methylPREDNISolone SOD SUCCI 40 MG/ML 1 ML VIAL IV SCH (08:49)
[2018-10-17] MEDS: VANCOMYCIN 1,500 MG in SODIUM CHLORIDE 0.9% 250 ML IVPB SCH (08:49)
[2018-10-17] MEDS ORDERED: AMIODARONE 360 MG in DEXTROSE 5% IN WATER 200 ML IV ONE ×4 (09:30→11:30)
[2018-10-17] MEDS ORDERED: DEXTROSE 5% IN WATER 250 ML with AMIODARONE 300 MG IV ONE (09:30)
--- NOTE | 2018-10-17 09:35 | P.CRDCN ---
History of Present Illness Consult date: 10/16/18 History of present illness: This is a 58-year-old female who was admitted to the hospital with shortness of breath and evidence of pneumonia. Patient was also having nausea vomiting and diarrhea. Patient was found to have atrial fibrillation but subsequently converted to sinus rhythm. We're asked to see the patient because of the paroxysmal atrial fibrillation. Patient doesn't have a history of previous cardiac arrhythmias. She does have a history of hypertension and diabetes. No history of previous myocardial infarction. Patient didn't have any palpitations with arrhythmia. Patient is currently in sinus rhythm. I'm going to start her on anticoagulation therapy. Echo Cardigan showed preserved LV function. If patient has any recurrence of atrial fibrillation, or may consider for anti- arrhythmic medication. Further recommendations depend upon the clinical course. Meanwhile we'll continue with current medical therapy with antibiotics. Patient denied any chest pain. Review of Systems As per the chart Past Medical History Past Medical History: Diabetes Mellitus History of Any Multi-Drug Resistant Organisms: None Reported Past Surgical History: Unable to Obtain Additional Past Surgical History / Comment(s): Bilateral thumbs Past Anesthesia/Blood Transfusion Reactions: Postoperative Nausea & Vomiting (PONV) Past Psychological History: No Psychological Hx Reported Smoking Status: Former smoker Past Alcohol Use History: None Reported Past Drug Use History: None Reported - Past Family History Mother Family Medical History: Renal Disease Father History Unknown: Yes Medications and Allergies Home Medications Medication Instructions Recorded Confirmed Type Albuterol Nebulized [Ventolin 2.5 mg INHALATION RT-QID 10/14/18 10/14/18 History Nebulized] Atorvastatin [Lipitor] 40 mg PO HS 10/14/18 10/14/18 History Budesonide/Formoterol Fumarate 1 puff INHALATION RT-BID 10/14/18 10/14/18 History [Symbicort 80-4.5 Mcg Inhaler] Insulin Aspart [NovoLOG] 10 units SQ AC-TID 10/14/18 10/14/18 History Insulin Detemir (Levemir) [Levemir] 40 unit SQ HS 10/14/18 10/14/18 History Lisinopril 20 mg PO DAILY 10/14/18 10/14/18 History Montelukast [Singulair] 10 mg PO HS 10/14/18 10/14/18 History Omeprazole 20 mg PO DAILY 10/14/18 10/14/18 History Sertraline [Zoloft] 50 mg PO HS 10/14/18 10/14/18 History metFORMIN HCL 500 mg PO BID 10/14/18 10/14/18 History predniSONE 5 mg PO DAILY 10/14/18 10/14/18 History sitaGLIPtin [Januvia] 50 mg PO DAILY 10/14/18 10/14/18 History Allergies Allergy/AdvReac Type Severity Reaction Status Date / Time No Known Allergies Allergy Verified 10/14/18 07:49 Physical Exam Vitals: Vital Signs Temp Pulse Pulse Resp BP BP Pulse Ox 10/17/18 07:16 100 10/17/18 07:04 89 10/17/18 06:00 80 18 109/61 92 L 10/17/18 05:00 69 20 128/68 96 10/17/18 04:00 71 18 125/76 95 10/17/18 03:00 64 18 105/68 97 10/17/18 02:00 70 11 L 105/64 94 L 10/17/18 01:00 81 16 107/59 95 10/17/18 00:00 97.8 F 63 94 15 97/59 94 L 10/16/18 23:00 63 16 100/69 95 10/16/18 22:01 74 8 L 115/64 96 10/16/18 22:00 71 18 115/64 96 10/16/18 21:00 78 22 121/78 95 10/16/18 20:22 80 10/16/18 20:09 77 10/16/18 20:00 98.4 F 76 94 13 109/52 95 10/16/18 19:00 75 18 123/67 97 10/16/18 18:00 99.7 F H 85 14 125/67 96 10/16/18 16:19 96 10/16/18 16:00 103.0 F H 94 22 151/72 89 L 10/16/18 15:50 96 10/16/18 15:34 96 92 L 10/16/18 12:00 99.6 F 78 18 113/77 98 10/16/18 11:14 80 10/16/18 11:02 80 10/16/18 10:50 99.5 F Intake and Output 10/16/18 10/17/18 10/17/18 22:59 06:59 14:59 Intake Total 300 50 Output Total 1050 300 Balance -750 -250 Intake: IV 300 50 Piperacillin-Tazobactam 3 50 50 .375 gm In Sodium Chloride 0.9% 100 ml @ 25 mls/hr IVPB Q8H [facility] Rx#: [id number] Vancomycin 1,500 mg In 250 Sodium Chloride 0.9% 250 ml @ 125 mls/hr IVPB Q12H [facility] Rx#:[id number] Output: Urine 1050 300 Other: Voiding Method Bedside Commode Bedside Commode # Voids 1 Weight 91.2 kg GENERAL EXAM: Patient is alert and oriented and doesn't appear to be in any acute distress HEENT: Normocephalic. Normal reaction of pupils, equal size, normal range of extraocular motion. No erythema or exudates in the throat. NECK: No masses, no nuchal rigidity. CHEST: No chest wall deformity. LUNGS: Diminished breath sounds HEART: S1 and S2 normal. No murmurs heard ABDOMEN: No hepatosplenomegaly, normal bowel sounds, no guarding or rigidity. SKIN: No rashes CENTRAL NERVOUS SYSTEM: No focal deficits. EXTREMITIES: No cyanosis, clubbing or edema. Results 10/17/18 08:05 10/17/18 08:05 CBC 10/16/18 10/17/18 Range/Units 09:11 08:05 WBC 6.2 9.1 (3.8-10.6) k/uL RBC 4.14 4.42 (3.80-5.40) m/uL Hgb 11.9 12.6 (11.4-16.0) gm/dL Hct 36.4 39.0 (34.0-46.0) % Plt Count 173 190 (150-450) k/uL Comprehensive Metabolic Panel 10/16/18 10/17/18 Range/Units 09:11 08:05 Sodium 132 L 131 L (137-145) mmol/L Potassium 3.4 L 4.3 (3.5-5.1) mmol/L Chloride 98 99 (98-107) mmol/L Carbon Dioxide 29 24 (22-30) mmol/L BUN 8 14 (7-17) mg/dL Creatinine 0.70 0.75 (0.52-1.04) mg/dL Glucose 174 H 288 H (74-99) mg/dL Calcium 7.3 L 7.5 L (8.4-10.2) mg/dL Current Medications Generic Name Dose Route Start Last Admin Trade Name Freq PRN Reason Stop Dose Admin Acetaminophen 650 mg 10/14/18 04:01 10/16/18 15:45 Tylenol Tab PO 650 mg Q4H PRN Administration Fever Albuterol/Ipratropium 3 ml 10/14/18 16:00 10/17/18 07:03 Duoneb 0.5 Mg-3 Mg/3 Ml Soln INHALATION 3 ml RT-QID [facility] Administration Apixaban 5 mg 10/16/18 09:30 10/17/18 08:48 Eliquis PO 5 mg BID [facility] Administration Atorvastatin Calcium 40 mg 10/14/18 21:00 10/16/18 21:08 Lipitor PO 40 mg HS [facility] Administration Azithromycin 500 mg 10/14/18 21:00 10/16/18 21:39 Zithromax PO 500 mg HS [facility] Administration Budesonide/Formoterol Fumarate 1 puff 10/14/18 20:00 10/17/18 07:15 Symbicort 80-4.5 Mcg Inhaler INHALATION 1 puff RT-BID [facility] Administration Calamine/Phenol 1 applic 10/15/18 13:38 Calmoseptine Oint TOPICAL QID PRN Skin Irritation Diphenoxylate HCl/Atropine 1 each 10/16/18 15:45 Lomotil PO Q6HR PRN Diarrhea Piperacillin Sod/Tazobactam 100 mls @ 25 mls/hr 10/15/18 21:00 10/17/18 05:20 Sod 3.375 gm/ Sodium Chloride IVPB 25 mls/hr Q8H [facility] Administration Vancomycin HCl 1,500 mg/ 250 mls @ 125 mls/hr 10/16/18 09:00 10/17/18 08:49 Sodium Chloride IVPB 125 mls/hr Q12H [facility] Administration Amiodarone HCl 300 mg/ 256 mls @ 128 mls/hr 10/17/18 09:30 Dextrose/Water IV 10/17/18 11:29 .Q2H ONE Amiodarone HCl 360 mg/ 200 mls @ 33.333 mls/hr 10/17/18 09:30 Dextrose/Water IV 10/17/18 15:29 .Q6H ONE Protocol 1 MG/MIN Amiodarone HCl 300 mg/ 250 mls @ 25 mls/hr 10/17/18 09:30 Dextrose/Water IV 10/18/18 03:29 .Q10H [facility] Protocol 0.5 MG/MIN Insulin Aspart 0 unit 10/14/18 21:00 10/17/18 07:07 Novolog SQ 4 unit ACHS [facility] Administration Protocol Insulin Detemir 25 unit 10/14/18 21:00 10/16/18 21:13 Levemir SQ 25 unit HS [facility] Administration Ketorolac Tromethamine 30 mg 10/16/18 16:00 10/17/18 03:53 Toradol IVP 10/21/18 16:01 30 mg Q6H [facility] Administration Magnesium Oxide 400 mg 10/14/18 09:00 10/17/18 08:48 Mag-Ox PO 400 mg DAILY [facility] Administration Methylprednisolone Sodium Succinate 40 mg 10/16/18 21:00 10/17/18 08:49 Solu-Medrol IV 40 mg Q12HR [facility] Administration Metoprolol Tartrate 25 mg 10/17/18 21:00 Lopressor PO BID [facility] Miscellaneous Information 1 each 10/15/18 20:29 Rx Info: Iv Contrast Was Given MISCELLANE 10/17/18 20:30 DAILY PRN Per Protocol Miscellaneous Information 1 each 10/16/18 11:14 Magnesium Per Protocol MISCELLANE DAILY PRN Per Protocol Protocol Miscellaneous Information 1 each 10/16/18 11:13 Potassium Per Protocol MISCELLANE DAILY PRN Per Protocol Protocol Montelukast Sodium 10 mg 10/14/18 21:00 10/16/18 21:09 Singulair PO 10 mg HS [facility] Administration Pantoprazole Sodium 40 mg 10/15/18 07:30 10/17/18 08:48 Protonix PO 40 mg [id number] [facility] Administration Potassium Chloride 20 meq 10/14/18 09:00 10/16/18 15:45 K-Dur 20 PO 20 meq DAILY [facility] Administration Sertraline HCl 50 mg 10/14/18 21:00 10/16/18 21:39 Zoloft PO 50 mg HS [facility] Administration Intake and Output 10/16/18 10/17/18 10/17/18 22:59 06:59 14:59 Intake Total 300 50 Output Total 1050 300 Balance -750 -250 Intake: IV 300 50 Piperacillin-Tazobactam 3 50 50 .375 gm In Sodium Chloride 0.9% 100 ml @ 25 mls/hr IVPB Q8H [facility] Rx#: [id number] Vancomycin 1,500 mg In 250 Sodium Chloride 0.9% 250 ml @ 125 mls/hr IVPB Q12H [facility] Rx#:[id number] Output: Urine 1050 300 Other: Voiding Method Bedside Commode Bedside Commode # Voids 1 Weight 91.2 kg 10/17/18 08:05 10/17/18 08:05 EKG Interpretations (text) Sinus rhythm. one of the EKG showed atrial fibrillation with a rapid ventricular response Assessment and Plan (1) Essential hypertension Current Visit: Yes Status: Acute Code(s): I10 - ESSENTIAL (PRIMARY) HYPERTENSION SNOMED Code(s): 24502925 (2) Bilateral pneumonia Current Visit: Yes Status: Acute Code(s): J18.9 - PNEUMONIA, UNSPECIFIED ORGANISM SNOMED Code(s): 147603922 (3) Paroxysmal atrial fibrillation with rapid ventricular response Current Visit: Yes Status: Acute Code(s): I48.0 - PAROXYSMAL ATRIAL FIBRILLATION SNOMED Code(s): 853964684 (4) Sepsis Current Visit: Yes Status: Acute Code(s): A41.9 - SEPSIS, UNSPECIFIED ORGANISM SNOMED Code(s): 90285386 Plan: Continue with current medical therapy. I'll start her on metoprolol and anticoagulation therapy. He patient has any recurrence of atrial fibrillation, we will consider adding antiarrhythmic medication.
--- NOTE | 2018-10-17 09:37 | P.PN ---
Subjective Progress Note Date: 10/17/18 This 58-year-old female has a recurrence of atrial fibrillation but rate seems to be controlled. Patient is on IV Cardizem and also metoprolol. I'm going to discontinue IV Cardizem and start her on IV amiodarone with the hope of maintaining sinus rhythm. Patient otherwise denies any chest pain. Continues to have shortness of breath and cough. Being treated for pneumonia. Further recommendations depend upon clinical course Objective - Vital Signs Vital signs: Vital Signs Temp 97.8 F 10/17/18 00:00 Pulse 100 10/17/18 07:16 Resp 18 10/17/18 06:00 BP 109/61 10/17/18 06:00 Pulse Ox 92 L 10/17/18 06:00 Intake & Output 10/16/18 10/17/18 10/17/18 18:59 06:59 18:59 Intake Total 837 350 Output Total 250 1100 Balance 587 -750 Weight 91.2 kg Intake: IV 350 Piperacillin-Tazobactam 3 100 .375 gm In Sodium Chloride 0.9% 100 ml @ 25 mls/hr IVPB Q8H [facility] Rx#: [id number] Vancomycin 1,500 mg In 250 Sodium Chloride 0.9% 250 ml @ 125 mls/hr IVPB Q12H [facility] Rx#:[id number] Oral 837 Output: Urine 250 1100 Other: Voiding Method Bedside Commode Bedside Commode # Voids 1 1 # Bowel Movements 1 - Exam GENERAL EXAM: Patient is alert and oriented and doesn't appear to be in any acute distress HEENT: Normocephalic. Normal reaction of pupils, equal size, normal range of extraocular motion. No erythema or exudates in the throat. NECK: No masses, no nuchal rigidity. CHEST: No chest wall deformity. LUNGS: Diminished air entry HEART: S1 and S2 normal with no audible mumurs or gallops. Regular rhythm, femorals equal on both sides.. ABDOMEN: No hepatosplenomegaly, normal bowel sounds, no guarding or rigidity. SKIN: No rashes CENTRAL NERVOUS SYSTEM: No focal deficits. EXTREMITIES: No cyanosis, clubbing or edema. - Labs CBC & Chem 7: 10/17/18 08:05 10/17/18 08:05 Labs: Abnormal Lab Results - Last 24 Hours (Table) 06/10/16/18 10/16/18 Range/Units 09:11 11:35 16:44 Sodium 132 L (137-145) mmol/L Potassium 3.4 L (3.5-5.1) mmol/L Glucose 174 H (74-99) mg/dL POC Glucose (mg/dL) 156 H 205 H (75-99) mg/dL Calcium 7.3 L (8.4-10.2) mg/dL Magnesium (1.6-2.3) mg/dL 10/16/18 10/16/18 10/17/18 Range/Units 17:35 20:26 06:50 Sodium (137-145) mmol/L Potassium (3.5-5.1) mmol/L Glucose (74-99) mg/dL POC Glucose (mg/dL) 183 H 241 H 261 H (75-99) mg/dL Calcium (8.4-10.2) mg/dL Magnesium (1.6-2.3) mg/dL 10/17/18 Range/Units 08:05 Sodium 131 L (137-145) mmol/L Potassium (3.5-5.1) mmol/L Glucose 288 H (74-99) mg/dL POC Glucose (mg/dL) (75-99) mg/dL Calcium 7.5 L (8.4-10.2) mg/dL Magnesium 2.6 H (1.6-2.3) mg/dL Microbiology - Last 24 Hours (Table) 10/13/18 23:47 Blood Culture - Preliminary Blood No Growth after 72 hours Assessment and Plan (1) Essential hypertension Current Visit: Yes Status: Acute Code(s): I10 - ESSENTIAL (PRIMARY) HYPERTENSION SNOMED Code(s): 85842385 (2) Bilateral pneumonia Current Visit: Yes Status: Acute Code(s): J18.9 - PNEUMONIA, UNSPECIFIED ORGANISM SNOMED Code(s): 368427406 (3) Paroxysmal atrial fibrillation with rapid ventricular response Current Visit: Yes Status: Acute Code(s): I48.0 - PAROXYSMAL ATRIAL FIBR ILLATION SNOMED Code(s): 031606352 (4) Sepsis Current Visit: Yes Status: Acute Code(s): A41.9 - SEPSIS, UNSPECIFIED ORGANISM SNOMED Code(s): 83713433 Plan: I'm going to discontinue IV Cardizem. I'll start her on IV amiodarone and continue with the metoprolol and also anticoagulation therapy
[2018-10-17 11:58] LABS: Glucose,Whole Blood 306 mg/dL (75-99)
--- NOTE | 2018-10-17 13:04 | P.CNPUL ---
History of Present Illness Consult date: 10/17/18 Requesting physician: Jh Meza Reason for consult: pneumonia Chief complaint: nausea and vomiting. History of present illness: this is a 58-year-old femalewith history of diabetes, nonsmoker, patient presented to the ER on 10/13/2018,and she was complaining mostly of feeling sick, complaining of intermittent episodes of nausea and vomiting. Patient was also noted to be delirious and confused and she was noted to have fever and leukocytosis. Chest x-ray and CT of the chest showed a right lower lobe and right middle lobe. Consolidation. It also showed some partial atelectasis in the inferior lingula and a left lower lobe.patient was also noted to have high- grade fever with leukocytosis and she was noted to have intermittent episodes of atrial fibrillation with RVR. Treated with Cardizem, seen by cardiology on consultation, and the patient was noted to have worsening hypoxia and her oxygen requirement was getting more and more since admission, has the patient was transferred yesterday to the intensive care unit, and we were asked to see her on consultation. Patient denies any significant pulmonary symptoms during my evaluation, denies even being short of breath, denies any cough, and she denies any wheezing.she was already seen by Dr. Juares on consultation, and she was started empirically on antibiotics includingZosyn and vancomycin.patient remains on IV Cardizem, and she is also on metoprolol. However when she was seen by cardiology today, plan was to start the patient on amiodarone and discontinue Cardizem. Review of Systems HEENT:mostly complaining of sore throat since admission. No earache, no diplopia, no dizziness. Lungs: not much of pulmonary symptoms upon presentation, her symptoms are mostly GI in nature, but later on developed fever, and some productive cough. And some shortness of breath. Cardiovascular: Mostly symptoms of palpitations. And the patient had A. fib with RVR. Gastrointestinal:nausea and vomiting on admission, resolved, no melena, no hematemesis. Genitourinary: Denies any dysuria frequency or urgency. Musculoskeletal: no arthralgia or myalgia. Skin: denies any rashes or ulcers Neuro: no headache no blurred vision no dizziness Psychiatric:denies any symptoms of active depression. Endocrine: denies any heat or cold intolerance, denies any polyuria, polydipsia, and polyphagia. Past Medical History Past Medical History: Diabetes Mellitus History of Any Multi-Drug Resistant Organisms: None Reported Past Surgical History: Unable to Obtain Additional Past Surgical History / Comment(s): Bilateral thumbs Past Anesthesia/Blood Transfusion Reactions: Postoperative Nausea & Vomiting (PONV) Past Psychological History: No Psychological Hx Reported Smoking Status: Former smoker Past Alcohol Use History: None Reported Past Drug Use History: None Reported - Past Family History Mother Family Medical History: Renal Disease Father History Unknown: Yes Medications and Allergies Home Medications Medication Instructions Recorded Confirmed Type Albuterol Nebulized [Ventolin 2.5 mg INHALATION RT-QID 10/14/18 10/14/18 History Nebulized] Atorvastatin [Lipitor] 40 mg PO HS 10/14/18 10/14/18 History Budesonide/Formoterol Fumarate 1 puff INHALATION RT-BID 10/14/18 10/14/18 History [Symbicort 80-4.5 Mcg Inhaler] Insulin Aspart [NovoLOG] 10 units SQ AC-TID 10/14/18 10/14/18 History Insulin Detemir (Levemir) [Levemir] 40 unit SQ HS 10/14/18 10/14/18 History Lisinopril 20 mg PO DAILY 10/14/18 10/14/18 History Montelukast [Singulair] 10 mg PO HS 10/14/18 10/14/18 History Omeprazole 20 mg PO DAILY 10/14/18 10/14/18 History Sertraline [Zoloft] 50 mg PO HS 10/14/18 10/14/18 History metFORMIN HCL 500 mg PO BID 10/14/18 10/14/18 History predniSONE 5 mg PO DAILY 10/14/18 10/14/18 History sitaGLIPtin [Januvia] 50 mg PO DAILY 10/14/18 10/14/18 History Allergies Allergy/AdvReac Type Severity Reaction Status Date / Time No Known Allergies Allergy Verified 10/14/18 07:49 Physical Exam Vitals: Vital Signs Temp Pulse Pulse Resp BP BP Pulse Ox 10/17/18 12:00 97.7 F 79 13 114/77 95 10/17/18 11:30 88 15 99/75 97 10/17/18 11:00 77 14 107/70 95 10/17/18 10:53 70 10/17/18 10:45 68 10/17/18 10:30 80 12 108/96 95 10/17/18 10:00 84 14 110/74 93 L 10/17/18 09:30 86 15 120/80 95 10/17/18 09:00 124 H 14 122/75 94 L 10/17/18 08:30 108 H 8 L 112/76 94 L 10/17/18 08:00 98.0 F 122 H 11 L 115/94 95 10/17/18 07:16 100 10/17/18 07:04 89 10/17/18 06:00 80 18 109/61 92 L 10/17/18 05:00 69 20 128/68 96 10/17/18 04:00 71 18 125/76 95 10/17/18 03:00 64 18 105/68 97 10/17/18 02:00 70 11 L 105/64 94 L 10/17/18 01:00 81 16 107/59 95 10/17/18 00:00 97.8 F 63 94 15 97/59 94 L 10/16/18 23:00 63 16 100/69 95 10/16/18 22:01 74 8 L 115/64 96 10/16/18 22:00 71 18 115/64 96 10/16/18 21:00 78 22 121/78 95 10/16/18 20:22 80 10/16/18 20:09 77 10/16/18 20:00 98.4 F 76 94 13 109/52 95 10/16/18 19:00 75 18 123/67 97 10/16/18 18:00 99.7 F H 85 14 125/67 96 10/16/18 16:19 96 10/16/18 16:00 103.0 F H 94 22 151/72 89 L 10/16/18 15:50 96 10/16/18 15:34 96 92 L Intake and Output 10/16/18 10/17/18 10/17/18 22:59 06:59 14:59 Intake Total 300 50 350 Output Total 1050 300 400 Balance -750 -250 -50 Intake: IV 300 50 350 .9 100 Piperacillin-Tazobactam 3 50 50 .375 gm In Sodium Chloride 0.9% 100 ml @ 25 mls/hr IVPB Q8H [facility] Rx#: [id number] Vancomycin 1,500 mg In 250 250 Sodium Chloride 0.9% 250 ml @ 125 mls/hr IVPB Q12H [facility] Rx#:[id number] Output: Urine 1050 300 400 Other: Voiding Method Bedside Commode Bedside Commode Bedside Commode # Voids 1 Weight 91.2 kg Physical Exam: Revealed a 58-year-old female in no distress. On high flow nasal cannula. Head: Atraumatic, normocephalic. HEENT:[Neck is supple.] [No neck masses.] [No thyromegaly.] [No JVD.]PERRLA, EOMI, no icterus. Throat is clear Chest: [slightly diminished breath sounds at the bases no crackles or rhonchi or wheezes. Symmetrical chest expansion. No chest wall tenderness] Cardiac Exam: [irregular irregular rhythm, no S3 gallop, no murmur.r.] Abdomen: [Soft, nontender, no megaly, no rebound, no guarding, normal bowel sounds.] Extremities: [No clubbing, no edema, no cyanosis.] Neurological Exam: [No focal neurologic deficit.]alert oriented 3. Psychiatric: Normal mood, affect and mental status examination. Skin: No rashes. Results - Laboratory Findings CBC and BMP: 10/17/18 08:05 10/17/18 08:05 PT/INR, D-dimer PT 10.5 sec (9.0-12.0) 10/13/18 23:47 INR 1.0 (<1.2) 10/13/18 23:47 Abnormal lab findings: Abnormal Labs 10/13/18 10/13/18 10/13/18 18:06 23:45 23:47 WBC 10.7 H Neutrophils # 8.3 H Sodium Potassium Chloride BUN Glucose POC Glucose (mg/dL) 187 H Hemoglobin A1c Calcium Magnesium AST Urine Protein Trace H Urine Ketones 2+ H Urine Blood Moderate H Urine RBC 8 H Urine Bacteria Rare H Urine Mucus Rare H 10/13/18 10/14/18 10/14/18 23:47 06:12 06:56 WBC Neutrophils # Sodium 130 L 133 L Potassium 2.9 L Chloride 93 L BUN Glucose 194 H 199 H POC Glucose (mg/dL) 179 H Hemoglobin A1c Calcium 8.3 L 7.4 L Magnesium 1.2 L AST 43 H Urine Protein Urine Ketones Urine Blood Urine RBC Urine Bacteria Urine Mucus 10/14/18 10/14/18 10/14/18 11:41 12:32 16:24 WBC Neutrophils # Sodium Potassium Chloride BUN Glucose POC Glucose (mg/dL) 164 H 164 H 111 H Hemoglobin A1c Calcium Magnesium AST Urine Protein Urine Ketones Urine Blood Urine RBC Urine Bacteria Urine Mucus 10/14/18 10/15/18 10/15/18 21:01 05:51 06:32 WBC Neutrophils # Sodium Potassium Chloride BUN Glucose POC Glucose (mg/dL) 149 H 208 H Hemoglobin A1c 8.1 H Calcium Magnesium AST Urine Protein Urine Ketones Urine Blood Urine RBC Urine Bacteria Urine Mucus 10/15/18 10/15/18 10/15/18 06:32 11:52 16:41 WBC Neutrophils # Sodium 133 L Potassium Chloride BUN 6 L Glucose 186 H POC Glucose (mg/dL) 178 H 261 H Hemoglobin A1c Calcium 7.3 L Magnesium AST Urine Protein Urine Ketones Urine Blood Urine RBC Urine Bacteria Urine Mucus 10/15/18 10/16/18 10/16/18 20:34 05:44 09:11 WBC Neutrophils # Sodium 132 L Potassium 3.4 L Chloride BUN Glucose 174 H POC Glucose (mg/dL) 192 H 145 H Hemoglobin A1c Calcium 7.3 L Magnesium AST Urine Protein Urine Ketones Urine Blood Urine RBC Urine Bacteria Urine Mucus 10/16/18 10/16/18 10/16/18 11:35 16:44 17:35 WBC Neutrophils # Sodium Potassium Chloride BUN Glucose POC Glucose (mg/dL) 156 H 205 H 183 H Hemoglobin A1c Calcium Magnesium AST Urine Protein Urine Ketones Urine Blood Urine RBC Urine Bacteria Urine Mucus 10/16/18 10/17/18 10/17/18 20:26 06:50 08:05 WBC Neutrophils # Sodium 131 L Potassium Chloride BUN Glucose 288 H POC Glucose (mg/dL) 241 H 261 H Hemoglobin A1c Calcium 7.5 L Magnesium 2.6 H AST Urine Protein Urine Ketones Urine Blood Urine RBC Urine Bacteria Urine Mucus 10/17/18 11:57 WBC Neutrophils # Sodium Potassium Chloride BUN Glucose POC Glucose (mg/dL) 306 H Hemoglobin A1c Calcium Magnesium AST Urine Protein Urine Ketones Urine Blood Urine RBC Urine Bacteria Urine Mucus - Diagnostic Findings CT scan - chest: image reviewed (as noted in HPI.) Assessment and Plan Assessment: impression: 1 acute bilateral pneumonia, considering the presentation of mostly GI symptoms, and mental status change, this could very well be aspiration pneumonia. However the possibility of community-acquired pneumonia is not entirely ruled out. 2 acute sepsis secondary to pneumonia, with fever and leukocytosis but no hypotension requiring pressors. 3paroxysmal atrial fibrillation with RVR. 4 history of diabetes type 2 5 history of asthma patient is maintained on bronchodilators on outpatient basis including albuterol and Symbicort.and Singulair.presently inactive. 6 acute hypoxic respiratory failure secondary to extensive pneumonia involving both lungs. Recommendation: I fully agree with the present treatment plan including broad- spectrum antibiotics empirically, treatment of her atrial fibrillation and RVR, continue bronchodilators, continue GI and DVT prophylaxis, we'll continue to follow. Patient will be maintained in the ICU. Time with Patient: Greater than 30
--- NOTE | 2018-10-17 14:08 | P.PN ---
Subjective 58-year-old female admitted for pneumonia in the right lower lung ortega therapy to the chest x-ray today with right showing infiltrate in both lung lower lobes and a prominent fissure. Patient still febrile patient can use to be on Rocephin and azithromycin Lisa consulting infectious disease, patient's is still fatigued and malaise is in distress because of fatigue and sepsis. Continues to have high-grade fever. I'll obtain a BNP and echocardiogram as well because of bilateral lower infiltrates the possibility of effusion and a prominent fissure. He should and lungs are clear to auscultation but has saturations of 92%. Patient may require a CAT scan of the chest and pulmonary consultation. 10/16/2018 Patient looks much better today feels better today. Patient CAT scan of the chest which showed significant consolidation of the right middle lobe and by lateral lower lobes most probably pneumonia patient was evaluated pulmonary and infectious disease patient was started on the Lasix empirically by pulmonology. Patient's sister Zosyn and vancomycin by infectious disease. 10/17/2018 Patient had worsening in her clinical status as today requiring high amounts of causes started wheezing patient was started on systemic steroids transferred to ICU. Patient is hyponatremic no evidence of for heart failure exacerbation at this time patient was started on IV fluids again. Although her fever has gotten better yesterday it was very high. Patient looks better because of resolution of fever and systemic inflammatory response. Sputum cultures are not available which will be ordered. Patient went into A. fib and patient is requiring amiodarone drip at this time. Constitutional: Patient significant improved compared to yesterday Cardio vascular: denied any chest pain, palpitations Gastrointestinal denied any nausea vomiting Pulmonary: Denied any shortness of breath cough Neurologic denied any new focal deficits All inpatient medications were reviewed and appropriate changes in these medications as dictated in the interval history and assessment and plan. Objective - Vital Signs Vital signs: Vital Signs Temp 97.7 F 10/17/18 12:00 Pulse 79 10/17/18 12:00 Resp 13 10/17/18 12:00 BP 114/77 10/17/18 12:00 Pulse Ox 95 10/17/18 12:00 Intake & Output 10/16/18 10/17/18 10/17/18 18:59 06:59 18:59 Intake Total 837 350 350 Output Total 250 1100 400 Balance 587 -750 -50 Weight 91.2 kg Intake: IV 350 350 .9 100 Piperacillin-Tazobactam 3 100 .375 gm In Sodium Chloride 0.9% 100 ml @ 25 mls/hr IVPB Q8H [facility] Rx#: [id number] Vancomycin 1,500 mg In 250 250 Sodium Chloride 0.9% 250 ml @ 125 mls/hr IVPB Q12H [facility] Rx#:[id number] Oral 837 Output: Urine 250 1100 400 Other: Voiding Method Bedside Commode Bedside Commode Bedside Commode # Voids 1 1 # Bowel Movements 1 - Exam PHYSICAL EXAMINATION: GENERAL: The patient is alert and oriented x3, not in acute distress. He is on 12 L of high flow numbness cannula oxygen HEENT: Pupils are round and equally reacting to light. EOMI. No scleral icterus. No conjunctival pallor. Normocephalic, atraumatic. No pharyngeal erythema. No thyromegaly. CARDIOVASCULAR: S1 and S2 present. No murmurs, rubs, or gallops. PULMONARY: Chest is clear to auscultation, no wheezing or crackles. Breath sounds are absent in bilateral lower lung bases. ABDOMEN: Soft, nontender, nondistended, normoactive bowel sounds. No palpable organomegaly. MUSCULOSKELETAL: No joint swelling or deformity. EXTREMITIES: No cyanosis, clubbing, or pedal edema. NEUROLOGICAL: Gross neurological examination did not reveal any focal deficits. SKIN: No rashes. - Labs CBC & Chem 7: 10/17/18 08:05 10/17/18 08:05 Labs: Abnormal Lab Results - Last 24 Hours (Table) 10/16/18 10/16/18 10/16/18 Range/Units 16:44 17:35 20:26 Sodium (137-145) mmol/L Glucose (74-99) mg/dL POC Glucose (mg/dL) 205 H 183 H 241 H (75-99) mg/dL Calcium (8.4-10.2) mg/dL Magnesium (1.6-2.3) mg/dL 10/17/18 10/17/18 10/17/18 Range/Units 06:50 08:05 11:57 Sodium 131 L (137-145) mmol/L Glucose 288 H (74-99) mg/dL POC Glucose (mg/dL) 261 H 306 H (75-99) mg/dL Calcium 7.5 L (8.4-10.2) mg/dL Magnesium 2.6 H (1.6-2.3) mg/dL Microbiology - Last 24 Hours (Table) 10/13/18 23:47 Blood Culture - Preliminary Blood No Growth after 72 hours Assessment and Plan Plan: -Severe sepsis: Secondary to right lower lobe pneumonia possibly community- acquired pneumonia since there is no improvement in improvement with significant worsening to bilateral lower lobes of the chest. Patient was switched to vancomycin and Zosyn by infectious disease CAT scan of the chest as mentioned above awaiting blood cultures and sputum cultures which are so far negative. -Acute hypoxic respiratory failure secondary to pneumonia and COPD exacerbation patient was started on systemic steroids and inhalational treatments -Toxic encephalopathy and delirium secondary to sepsis patient . -Shortness of breath secondary to sepsis and pneumonia. Patient's BNP is 250 -Hyponatremia hypovolemic hyponatremia and secondary to sepsis patient was started on IV fluids again is -Type 2 diabetes mellitus, patient will be continued on present regimen. Patient's hemoglobin A1c is 8.0 -Hyperlipidemia -Lactic is doses seconded to sepsis metformin was discontinued, lactic is doses improved -Hypertension hold off on lisinopril because of sepsis and low blood pressure concerns -Possible history of COPD although with acute exacerbation -Episode of A. fib proximal probably proximal A. fib patient presently is in rapid ventricular rate was started back on amiodarone
[2018-10-17 17:09] LABS: Glucose,Whole Blood 303 mg/dL (75-99)
[2018-10-17] MEDS: SODIUM CHLORIDE 0.9% 1,000 ML IV SCH (17:36)
[2018-10-17] MEDS: MAG HYDROX/AL HYDROX/SIMETH 30 ML, LIDOCAINE VISCOUS 30 ML, NYSTATIN 100,000 UNIT/ML SU... PO SCH ×9 (17:36→21:30)
[2018-10-17] MEDS ORDERED: VANCOMYCIN 1,750 MG in SODIUM CHLORIDE 0.9% 250 ML IVPB SCH (20:00)
[2018-10-17] MEDS: MONTELUKAST 10 MG TAB PO SCH (20:14)
[2018-10-17] MEDS: ATORVASTATIN 40 MG TAB PO SCH (20:15)
[2018-10-17] MEDS: METOPROLOL TARTRATE 25 MG TAB PO SCH (20:15)
[2018-10-17] MEDS: VANCOMYCIN 1,750 MG in SODIUM CHLORIDE 0.9% 500 ML 500 ML IVPB SCH (20:15)
[2018-10-17 20:42] LABS: Glucose,Whole Blood 282 mg/dL (75-99)
[2018-10-17] MEDS ORDERED: INSULIN DETEMIR (LEVEMIR) 100 UNIT/ML SYR SQ SCH (21:00)
[2018-10-17] MEDS: SERTRALINE 50 MG TAB PO SCH (21:28)
[2018-10-17] MEDS: AMIODARONE 300 MG in DEXTROSE 5% IN WATER 250 ML IV SCH ×2 (21:28)
[2018-10-17] MEDS: AZITHROMYCIN 500 MG TAB PO SCH (21:28)
--- NOTE | 2018-10-17 23:05 | P.PN ---
Subjective Progress Note Date: 10/17/18 58 -year-old female with history of diabetes mellitus type 2 generally is completely independent relates to approximate 4 day history of feeling poorly. She started to feel fever chills generalized malaise cough with yellowish sputum production and no hemoptysis. Her fever increased she felt w eak and confused and was brought to the emergency center. There she has not evidence of a high-grade fever leukocytosis and sepsis as well as atrial fibrillation, she was treated with a dose of Cardizem with hydration and resolution of her A. fib. The patient continued to feel ill continue to have ongoing fevers because of the consult was requested. At the time of the consult antibiotic therapy was altered and anti-inflammatory with Toradol was requested and the patient is feeling considerably better today. After the first dorsal Toradol her sugar went from 103.5-99.5. The highest it's been so far today is 101.5. Patient does feel poorly still. She has shortness of breath or oxygen therapy she has cough without much sputum production or hemoptysis does have discomfort in her chest with coughing. 10/17/2018 the patient had significant worsening of her status overnight. She developed atrial fibrillation with a rapid ventricular response and was brought to the intensive care unit has been treated with Cardizem and amiodarone. She has had an improvement of her cardiac dysrhythmia and is somewhat less short of breath. She had further fever which is now much improved since her transfer to the intensive care unit. She relates she still feels poorly but better than last night. She is not having chest pain. No chills or rigors are occurring at this time. Objective - Vital Signs Vital signs: Vital Signs Temp 98.4 F 10/17/18 20:00 Pulse 77 10/17/18 22:00 Resp 15 10/17/18 22:00 BP 110/78 10/17/18 22:00 Pulse Ox 96 10/17/18 22:00 Intake & Output 10/17/18 10/17/18 10/18/18 06:59 18:59 06:59 Intake Total 350 810 782 Output Total 1100 701 430 Balance -750 109 352 Weight 91.2 kg Intake: IV 350 810 782 .9 460 400 Piperacillin-Tazobactam 3 100 100 50 .375 gm In Sodium Chloride 0.9% 100 ml @ 25 mls/hr IVPB Q8H [facility] Rx#: [id number] Vancomycin 1,500 mg In 250 250 Sodium Chloride 0.9% 250 ml @ 125 mls/hr IVPB Q12H [facility] Rx#:[id number] Vancomycin 1,750 mg In 332 Sodium Chloride 0.9% 500 ml 500 ml @ 166.667 mls/ hr IVPB Q12H [facility] Rx#: [id number] Output: Urine 1100 700 430 Stool 1 Other: Voiding Method Bedside Commode Bedside Commode Bedside Commode # Voids 1 - Exam 58 -year-old woman, overweight build and somewhat uncomfortable HEENT: Anicteric conjunctiva are pink and moist nasal mucosa grossly intact without significant lesions, there is no thrush. Neck: The neck is supple without significant lymphadenopathy or thyromegaly. Lungs: Symmetrical bilateral air entry, markedly diminished breath sounds to the right base with egophony being noted a few crackles at the right posterior mid zone, posterior left lower zone also with crackles no distinct egophony nor dullness in either area some expiratory wheezes are scattered Heart: Regular rate and rhythm with an audible S1-S2, no S3 no S4. There is no significant murmur click or rub, PMI was nondisplaced. Abdomen: Obese, Positive bowel sounds soft and nontender without palpable masses or organomegaly. There was no guarding or rebound. Extremities: The upper extremities have excellent pulses they are symmetric, no significant petechiae or telangiectasia. No splinter hemorrhages were noted. The lower extremities are free from significant edema. The peripheral pulses were 2+ and symmetric. Neuro: Awake alert oriented to person place and time. There are no acute new gross focal sensory motor deficits. - Labs CBC & Chem 7: 10/17/18 08:05 10/17/18 08:05 Labs: Abnormal Lab Results - Last 24 Hours (Table) 10/17/18 10/17/18 10/17/18 Range/Units 06:50 08:05 11:57 Sodium 131 L (137-145) mmol/L Glucose 288 H (74-99) mg/dL POC Glucose (mg/dL) 261 H 306 H (75-99) mg/dL Calcium 7.5 L (8.4-10.2) mg/dL Magnesium 2.6 H (1.6-2.3) mg/dL 10/17/18 10/17/18 Range/Units 17:07 20:41 Sodium (137-145) mmol/L Glucose (74-99) mg/dL POC Glucose (mg/dL) 303 H 282 H (75-99) mg/dL Calcium (8.4-10.2) mg/dL Magnesium (1.6-2.3) mg/dL Microbiology - Last 24 Hours (Table) 10/13/18 23:47 Blood Culture - Preliminary Blood No Growth after 72 hours Laboratory Results WBC 9.1 k/uL (3.8-10.6) 10/17/18 08:05 RBC 4.42 m/uL (3.80-5.40) 10/17/18 08:05 Hgb 12.6 gm/dL (11.4-16.0) 10/17/18 08:05 Hct 39.0 % (34.0-46.0) 10/17/18 08:05 MCV 88.1 fL (80.0-100.0) 10/17/18 08:05 MCH 28.5 pg (25.0-35.0) 10/17/18 08:05 MCHC 32.4 g/dL (31.0-37.0) 10/17/18 08:05 RDW 14.6 % (11.5-15.5) 10/17/18 08:05 Plt Count 190 k/uL (150-450) 10/17/18 08:05 Neutrophils % 78 % 10/16/18 09:11 Lymphocytes % 17 % 10/16/18 09:11 Monocytes % 3 % 10/16/18 09:11 Eosinophils % 0 % 10/16/18 09:11 Basophils % 0 % 10/16/18 09:11 Neutrophils # 4.9 k/uL (1.3-7.7) 10/16/18 09:11 Lymphocytes # 1.1 k/uL (1.0-4.8) 10/16/18 09:11 Monocytes # 0.2 k/uL (0-1.0) 10/16/18 09:11 Eosinophils # 0.0 k/uL (0-0.7) 10/16/18 09:11 Basophils # 0.0 k/uL (0-0.2) 10/16/18 09:11 PT 10.5 sec (9.0-12.0) 10/13/18 23:47 INR 1.0 (<1.2) 10/13/18 23:47 APTT 28.8 sec (22.0-30.0) 10/13/18 23:47 Sodium 131 mmol/L (137-145) L 10/17/18 08:05 Potassium 4.3 mmol/L (3.5-5.1) 10/17/18 08:05 Chloride 99 mmol/L (98-107) 10/17/18 08:05 Carbon Dioxide 24 mmol/L (22-30) 10/17/18 08:05 Anion Gap 8 mmol/L 10/17/18 08:05 BUN 14 mg/dL (7-17) 10/17/18 08:05 Creatinine 0.75 mg/dL (0.52-1.04) 10/17/18 08:05 Est GFR (CKD-EPI)AfAm >90 (>60 ml/min/1.73 sqM) 10/17/18 08:05 Est GFR (CKD-EPI)NonAf 88 (>60 ml/min/1.73 sqM) 10/17/18 08:05 Glucose 288 mg/dL (74-99) H 10/17/18 08:05 POC Glucose (mg/dL) 282 mg/dL (75-99) H 10/17/18 20:41 POC Glu Housing Coordinator ID Livia Alba 10/17/18 20:[address] Glu mg/dL 186 10/15/18 06:32 Hemoglobin A1c 8.1 % (4.0-6.0) H 10/15/18 06:32 Plasma Lactic Acid Bola 0.8 mmol/L (0.7-2.0) 10/16/18 16:53 Calcium 7.5 mg/dL (8.4-10.2) L 10/17/18 08:05 Magnesium 2.6 mg/dL (1.6-2.3) H 10/17/18 08:05 Total Bilirubin 0.8 mg/dL (0.2-1.3) 10/13/18 23:47 AST 43 U/L (14-36) H 10/13/18 23:47 ALT 37 U/L (9-52) 10/13/18 23:47 Alkaline Phosphatase 75 U/L (38-126) 10/13/18 23:47 NT-Pro-B Natriuret Pep 256 pg/mL 10/15/18 06:32 Total Protein 6.5 g/dL (6.3-8.2) 10/13/18 23:47 Albumin 4.1 g/dL (3.5-5.0) 10/13/18 23:47 Urine Color Yellow 10/13/18 18:06 Urine Appearance Clear (Clear) 10/13/18 18:06 Urine pH 5.5 (5.0-8.0) 10/13/18 18:06 Ur Specific [place] 1.015 (1.001-1.035) 10/13/18 18:06 Urine Protein Trace (Negative) H 10/13/18 18:06 Urine Glucose (UA) Negative (Negative) 10/13/18 18:06 Urine Ketones 2+ (Negative) H 10/13/18 18:06 Urine Blood Moderate (Negative) H 10/13/18 18:06 Urine Nitrite Negative (Negative) 10/13/18 18:06 Urine Bilirubin Negative (Negative) 10/13/18 18:06 Urine Urobilinogen <2.0 mg/dL (<2.0) 10/13/18 18:06 Ur Leukocyte Esterase Negative (Negative) 10/13/18 18:06 Urine RBC 8 /hpf (0-5) H 10/13/18 18:06 Urine WBC 4 /hpf (0-5) 10/13/18 18:06 Ur Squamous Epith Cells 1 /hpf (0-4) 10/13/18 18:06 Urine Bacteria Rare /hpf (None) H 10/13/18 18:06 Urine Mucus Rare /hpf (None) H 10/13/18 18:06 Vancomycin Trough 11.4 ug/mL 10/17/18 08:05 C. difficile (EIA) Intrp Negative (Negative) 10/14/18 19:48 Microbiology 10/13/18 23:47 Blood Blood Culture - Preliminary No Growth after 72 hours 10/13/18 18:06 Urine,Voided Urine Culture - Final Assessment and Plan (1) Paroxysmal atrial fibrillation with rapid ventricular response Current Visit: Yes Status: Acute Code(s): I48.0 - PAROXYSMAL ATRIAL FIBRILLATION SNOMED Code(s): 303447425 (2) Bilateral pneumonia Narrative/Plan: 58-year-old female presents to hospital with a several-day history of increasing illness this is high-grade fever chills or malaise and cough without much sputum production. There is evidence of pneumonia minimally by chest x-ray the patient was remaining very ill with fevers of 103 despite antibiotic therapy. A consult was requested and at that time antibiotic therapy was altered to cover for gram negatives including Pseudomonas as well as resistant gram-positive pathogen such as MRSA and vancomycin was added. For fever Toradol was added given the normal renal function and there is no evidence of improvement of how the patient is feeling with this. Fevers have trended to improvement. Will allow further doses of Toradol Renal function to be followed The patient is requiring oxygen therapy and this is being monitored also. Blood glucoses are being monitored. Leukocytosis is trending to improvement Diarrhea did occur and C. diff testing was negative. Lomotil be requested to improve some diarrhea patient encouraged to utilize yogurt with meals. 10/17/2018 is noted the patient had acute worsening of her status with recurrent fever to 103 with the development of atrial fibrillation with rapid ventricular response and transferred to intensive care unit. She's been seen by pulmonary critical care. If there is no further improvement will consider bronchoscopy. Her fever has now resolved and she feels just minimally better. Does complain of a significant oral discomfort cool solution requested Current Visit: Yes Status: Acute Code(s): J18.9 - PNEUMONIA, UNSPECIFIED ORGANISM SNOMED Code(s): 714172646 (3) Fever Current Visit: Yes Status: Acute Code(s): R50.9 - FEVER, UNSPECIFIED SNOMED Code(s): 423644092 (4) Leukocytosis Current Visit: Yes Status: Acute Code(s): D72.829 - ELEVATED WHITE BLOOD CELL COUNT, UNSPECIFIED SNOMED Code(s): 241645070
[2018-10-18] MEDS: KETOROLAC 30 MG/ML 1 ML VIAL IVP SCH ×4 (04:33→21:43)
[2018-10-18] MEDS: PIPERACILLIN-TAZOBACTAM 3.375 GM in SODIUM CHLORIDE 0.9% 100 ML IVPB SCH ×3 (04:34→21:41)
[2018-10-18] MEDS: SODIUM CHLORIDE 0.9% 1,000 ML IV SCH ×3 (04:40→21:42)
[2018-10-18 05:57] LABS: HCT 38.8 % (34.0-46.0); HGB 12.1 gm/dL (11.4-16.0); MCH 28.4 pg (25.0-35.0); MCHC 31.1 g/dL (31.0-37.0); MCV 91.2 fL (80.0-100.0); Platelet Count 219 k/uL (150-450); RBC 4.25 m/uL (3.80-5.40); RDW 14.9 % (11.5-15.5); WBC 13.4 k/uL (3.8-10.6)
[2018-10-18 06:10] LABS: ALT 61 U/L (9-52); AST 109 U/L (14-36); African American GFR (CKD) >90 (>60 ml/min/1.73 sqM); Albumin 2.9 g/dL (3.5-5.0); Alkaline Phosphatase 59 U/L (38-126); Anion Gap 8 mmol/L; Blood Urea Nitrogen 18 mg/dL (7-17); Calcium 7.3 mg/dL (8.4-10.2); Carbon Dioxide 22 mmol/L (22-30); Chloride 103 mmol/L (98-107); Glucose 157 mg/dL (74-99); Potassium 4.4 mmol/L (3.5-5.1); Sodium 133 mmol/L (137-145); Total Bilirubin 0.3 mg/dL (0.2-1.3); Total Protein 5.1 g/dL (6.3-8.2)
[2018-10-18 07:02] LABS: Glucose,Whole Blood 139 mg/dL (75-99)
[2018-10-18] MEDS: INSULIN ASPART (NovoLOG) 100 UNIT/ML VIAL SQ SCH ×7 (07:13→21:44)
[2018-10-18] MEDS: SYMBICORT 80-4.5 MCG INHALER INHALATION SCH ×2 (07:27→19:37)
[2018-10-18] MEDS: IPRATROPIUM-ALBUTEROL 3 ML NEB INHALATION SCH ×4 (07:27→19:37)
--- NOTE | 2018-10-18 07:55 | P.PN ---
Progress Note - Text Progress Note Date: 10/18/18 This is a 58-year-old female patient was admitted to the hospital with bilateral pneumonia and developed atrial fibrillation with RVR. Initially she wasn't started on Cardizem drip but the pressure dropped down and because of that the Cardizem drip was stopped and the patient was started on amiodarone IV. On follow-up with the patient today, she still in atrial fibrillation was controlled heart rate. She is still on amiodarone IV which I am going to discontinue and start her on amiodarone by mouth. Beside that she is on metoprolol by mouth. The pressure has been marginally low. She is also on oral anticoagulation. The blood work from this morning is unremarkable. The echocardiogram revealed normal LV function with mild aortic stenosis. Assessment #1 bilateral pneumonia #2 paroxysmal atrial fibrillation Plan #1 continue the current medical regimen #2 continue oral anticoagulation #3 DC amiodarone IV and start the patient on amiodarone by mouth #4 follow-up with the patient
[2018-10-18] MEDS: AMIODARONE 300 MG in DEXTROSE 5% IN WATER 250 ML IV SCH ×2 (08:09)
[2018-10-18] MEDS: POTASSIUM CHLORIDE ER 20 MEQ TAB.ER PO SCH (08:11)
[2018-10-18] MEDS: APIXABAN 5 MG TAB PO SCH ×2 (08:12→21:43)
[2018-10-18] MEDS: PANTOPRAZOLE 40 MG TABLET PO SCH (08:12)
[2018-10-18] MEDS: predniSONE 20 MG TAB PO SCH (08:12)
[2018-10-18] MEDS: MAG HYDROX/AL HYDROX/SIMETH 30 ML, LIDOCAINE VISCOUS 30 ML, NYSTATIN 100,000 UNIT/ML SU... PO SCH ×12 (08:13→22:52)
[2018-10-18] MEDS: METOPROLOL TARTRATE 25 MG TAB PO SCH ×2 (08:13→21:43)
[2018-10-18] MEDS: VANCOMYCIN 1,750 MG in SODIUM CHLORIDE 0.9% 500 ML 500 ML IVPB SCH ×2 (08:13→21:42)
[2018-10-18] MEDS: MAGNESIUM OXIDE 400 MG TAB PO SCH (08:13)
--- NOTE | 2018-10-18 10:29 | XR ---
EXAMINATION TYPE: XR chest 1V portable DATE OF EXAM: 10/18/2018 COMPARISON: Prior chest x-ray 10/15/2018 HISTORY: Pneumonia TECHNIQUE: Single frontal view of the chest is obtained. FINDINGS: Basilar density in the right obscures the right hemidiaphragm as on prior exam. The heart is enlarged. There may be some improved aeration at the left lung base. No pneumothorax. Overlying ca rdiac leads. IMPRESSION: There may be some improvement in aeration. Findings compatible with right pleural effusi on and associated atelectasis. Cardiomegaly. Correlate to exclude pneumonia.
[2018-10-18 11:23] LABS: Glucose,Whole Blood 118 mg/dL (75-99)
[2018-10-18 12:08] LABS: Glucose,Whole Blood 115 mg/dL (75-99)
--- NOTE | 2018-10-18 12:57 | P.PN ---
Subjective Progress Note Date: 10/18/18 Principal diagnosis: Acute hypoxic respiratory failure secondary to extensive pneumonia involving both lungs this is a 58-year-old femalewith history of diabetes, nonsmoker, patient presented to the ER on 10/13/2018,and she was complaining mostly of feeling sick, complaining of intermittent episodes of nausea and vomiting. Patient was also noted to be delirious and confused and she was noted to have fever and leukocytosis. Chest x-ray and CT of the chest showed a right lower lobe and right middle lobe. Consolidation. It also showed some partial atelectasis in the inferior lingula and a left lower lobe.patient was also noted to have high- grade fever with leukocytosis and she was noted to have intermittent episodes of atrial fibrillation with RVR. Treated with Cardizem, seen by cardiology on consultation, and the patient was noted to have worsening hypoxia and her oxygen requirement was getting more and more since admission, has the patient was transferred yesterday to the intensive care unit, and we were asked to see her on consultation. Patient denies any significant pulmonary symptoms during my evaluation, denies even being short of breath, denies any cough, and she denies any wheezing.she was already seen by Dr. Juares on consultation, and she was started empirically on antibiotics includingZosyn and vancomycin.patient remains on IV Cardizem, and she is also on metoprolol. However when she was seen by cardiology today, plan was to start the patient on amiodarone and discontinue Cardizem. Patient was reevaluated today in the ICU on 10/18/2018, remains on a high flow nasal cannula at 10 L/m, O2 saturation is definitely improving compared to yes terday. Her O2 saturation is 97% today. Remains on amiodarone, drip at present, chest x-ray today however is showing improvement in overall aeration, but there is a new right-sided pleural effusion associated with atelectasis. Improved aeration noted in the left lung base. Hence we will likely consider ultrasound of the chest, and proceed to thoracentesis in the effusion isn't large enough to be drained to improve her oxygenation further. At the same time the thoracentesis will be diagnostic as well as therapeutic. Labs from today were all reviewed. Blood cultures are negative since admission. Patient herself seems to be quite comfortable, feeling better overall. Breathing a lot easier. Objective - Vital Signs Vital signs: Vital Signs Temp 97.8 F 10/18/18 08:00 Pulse 67 10/18/18 12:02 Resp 11 L 10/18/18 12:02 BP 119/79 10/18/18 11:00 Pulse Ox 96 10/18/18 11:00 Intake & Output 10/17/18 10/18/18 10/18/18 18:59 06:59 18:59 Intake Total 810 1798 1000 Output Total 701 830 400 Balance 109 968 600 Weight 93.4 kg Intake: IV 810 1798 500 .9 460 1200 500 Piperacillin-Tazobactam 3 100 100 .375 gm In Sodium Chloride 0.9% 100 ml @ 25 mls/hr IVPB Q8H [facility] Rx#: [id number] Vancomycin 1,500 mg In 250 Sodium Chloride 0.9% 250 ml @ 125 mls/hr IVPB Q12H [facility] Rx#:[id number] Vancomycin 1,750 mg In 498 Sodium Chloride 0.9% 500 ml 500 ml @ 166.667 mls/ hr IVPB Q12H [facility] Rx#: [id number] Intake, IV Titration 500 Amount Vancomycin 1,750 mg In 500 Sodium Chloride 0.9% 500 ml 500 ml @ 166.667 mls/ hr IVPB Q12H [facility] Rx#: [id number] Output: Urine 700 830 400 Stool 1 Other: Voiding Method Bedside Commode Bedside Commode Bedside Commode # Voids 1 # Bowel Movements 1 - Exam Physical Exam: Revealed a 58-year-old female in no distress. On high flow nasal cannula. Head: Atraumatic, normocephalic. HEENT:[Neck is supple.] [No neck masses.] [No thyromegaly.] [No JVD.]PERRLA, EOMI, no icterus. Throat is clear Chest: [slightly diminished breath sounds at the bases no crackles or rhonchi or wheezes. Symmetrical chest expansion. No chest wall tenderness] Cardiac Exam: [irregular irregular rhythm, no S3 gallop, no murmur.r.] Abdomen: [Soft, nontender, no megaly, no rebound, no guarding, normal bowel sounds.] Extremities: [No clubbing, no edema, no cyanosis.] Neurological Exam: [No focal neurologic deficit.]alert oriented 3. Psychiatric: Normal mood, affect and mental status examination. Skin: No rashes. - Labs CBC & Chem 7: 10/18/18 05:12 10/18/18 05:12 Labs: Abnormal Lab Results - Last 24 Hours (Table) 10/17/18 10/17/18 10/18/18 Range/Units 17:07 20:41 05:12 WBC 13.4 H (3.8-10.6) k/uL Sodium (137-145) mmol/L BUN (7-17) mg/dL Glucose (74-99) mg/dL POC Glucose (mg/dL) 303 H 282 H (75-99) mg/dL Calcium (8.4-10.2) mg/dL AST (14-36) U/L ALT (9-52) U/L Total Protein (6.3-8.2) g/dL Albumin (3.5-5.0) g/dL 10/18/18 10/18/18 10/18/18 Range/Units 05:12 07:01 11:22 WBC (3.8-10.6) k/uL Sodium 133 L (137-145) mmol/L BUN 18 H (7-17) mg/dL Glucose 157 H (74-99) mg/dL POC Glucose (mg/dL) 139 H 118 H (75-99) mg/dL Calcium 7.3 L (8.4-10.2) mg/dL AST 109 H (14-36) U/L ALT 61 H (9-52) U/L Total Protein 5.1 L (6.3-8.2) g/dL Albumin 2.9 L (3.5-5.0) g/dL 10/18/18 Range/Units 12:07 WBC (3.8-10.6) k/uL Sodium (137-145) mmol/L BUN (7-17) mg/dL Glucose (74-99) mg/dL POC Glucose (mg/dL) 115 H (75-99) mg/dL Calcium (8.4-10.2) mg/dL AST (14-36) U/L ALT (9-52) U/L Total Protein (6.3-8.2) g/dL Albumin (3.5-5.0) g/dL Microbiology - Last 24 Hours (Table) 10/13/18 23:47 Blood Culture - Preliminary Blood No Growth after 96 hours Assessment and Plan Assessment: impression: 1 acute bilateral pneumonia, considering the presentation of mostly GI symptoms, and mental status change, this could very well be aspiration pneumonia. However the possibility of community-acquired pneumonia is not entirely ruled out. 2 acute sepsis secondary to pneumonia, with fever and leukocytosis but no hypotension requiring pressors. 3paroxysmal atrial fibrillation with RVR. 4 history of diabetes type 2 5 history of asthma patient is maintained on bronchodilators on outpatient basis including albuterol and Symbicort.and Singulair.presently inactive. 6 acute hypoxic respiratory failure secondary to extensive pneumonia involving both lungs. 7 right-sided pleural effusion as noted on the chest x-ray, could be cardiogenic or parapneumonic, may require diagnostic as well as therapeutic thoracentesis. Hence ultrasound of the chest will be ordered. Recommendation: Continue antibiotics, continue amiodarone, may be switched to oral amiodarone today as per cardiology, continue bronchodilators, continue high flow should and titrate accordingly, continue bronchodilators, GI and DVT pro phylaxis, we will continue to monitor in the ICU as long as she is on IV amiodarone. Ultrasound of the chest was ordered. We'll continue to follow. Time with Patient: Less than 30
--- NOTE | 2018-10-18 14:42 | US ---
EXAMINATION TYPE: US chest DATE OF EXAM: 10/18/2018 COMPARISON: NONE CLINICAL HISTORY: Markings for thoracentesis by pulmonary staff. TECHNIQUE: Targeted ultrasound of the posterior lower EXAM MEASUREMENTS: Right Pleural Effusion pocket size: 0 cm Left Pleural Effusion pocket size: 0 cm Right side not marked for possible thoracentesis outside the dept. Left side not marked for possible thoracentesis outside the dept. Pulmonologists are able to review the images in the patient?s EMR. IMPRESSIONS: No sizable pleural effusion.
[2018-10-18 16:47] LABS: Glucose,Whole Blood 173 mg/dL (75-99)
--- NOTE | 2018-10-18 18:14 | P.PN ---
Subjective 58-year-old female admitted for pneumonia in the right lower lung ortega therapy to the chest x-ray today with right showing infiltrate in both lung lower lobes and a prominent fissure. Patient still febrile patient can use to be on Rocephin and azithromycin Lisa consulting infectious disease, patient's is still fatigued and malaise is in distress because of fatigue and sepsis. Continues to have high-grade fever. I'll obtain a BNP and echocardiogram as well because of bilateral lower infiltrates the possibility of effusion and a prominent fissure. He should and lungs are clear to auscultation but has saturations of 92%. Patient may require a CAT scan of the chest and pulmonary consultation. 10/16/2018 Patient looks much better today feels better today. Patient CAT scan of the chest which showed significant consolidation of the right middle lobe and by lateral lower lobes most probably pneumonia patient was evaluated pulmonary and infectious disease patient was started on the Lasix empirically by pulmonology. Patient's sister Zosyn and vancomycin by infectious disease. 10/17/2018 Patient had worsening in her clinical status as today requiring high amounts of causes started wheezing patient was started on systemic steroids transferred to ICU. Patient is hyponatremic no evidence of for heart failure exacerbation at this time patient was started on IV fluids again. Although her fever has gotten better yesterday it was very high. Patient looks better because of resolution of fever and systemic inflammatory response. Sputum cultures are not available which will be ordered. Patient went into A. fib and patient is requiring amiodarone drip at this time. 10/18/2018 pt is seen in the ICU, she presents with sepsis secondary to Bilateral pneumonia, pt is also treated for possible acute copd exacerbation ,pt is alr halle on antibiotic and steroids, today chest us showing no fluid collection , no need for thoracocentasis, hypodermically stable she is saturation 98% on 8 L oxygen via high flow oxygen. her wbc 13K. Na 133 today pt is been followed closely by critical care team Objective - Vital Signs Vital signs: Vital Signs Temp 98.6 F 10/18/18 16:00 Pulse 87 10/18/18 17:00 Resp 16 10/18/18 17:00 BP 123/80 10/18/18 17:00 Pulse Ox 98 10/18/18 17:00 Intake & Output 10/17/18 10/18/18 10/18/18 18:59 06:59 18:59 Intake Total 810 1798 1600 Output Total 701 830 650 Balance 109 968 950 Weight 93.4 kg Intake: IV 810 1798 1000 .9 460 1200 1000 Piperacillin-Tazobactam 3 100 100 .375 gm In Sodium Chloride 0.9% 100 ml @ 25 mls/hr IVPB Q8H [facility] Rx#: [id number] Vancomycin 1,500 mg In 250 Sodium Chloride 0.9% 250 ml @ 125 mls/hr IVPB Q12H [facility] Rx#:[id number] Vancomycin 1,750 mg In 498 Sodium Chloride 0.9% 500 ml 500 ml @ 166.667 mls/ hr IVPB Q12H [facility] Rx#: [id number] Intake, IV Titration 600 Amount Sodium Chloride 0.9% 1, 100 000 ml @ 100 mls/hr IV . Q10H [facility] Rx#:[id number] Vancomycin 1,750 mg In 500 Sodium Chloride 0.9% 500 ml 500 ml @ 166.667 mls/ hr IVPB Q12H [facility] Rx#: [id number] Output: Urine 700 830 650 Stool 1 Other: Voiding Method Bedside Commode Bedside Commode Bedside Commode # Voids 1 # Bowel Movements 1 - Exam GENERAL: The patient is alert and oriented x3, not in acute distress. He is on 12 L of high flow numbness cannula oxygen HEENT: Pupils are round and equally reacting to light. EOMI. No scleral icterus. No conjunctival pallor. Normocephalic, atraumatic. No pharyngeal erythema. No thyromegaly. CARDIOVASCULAR: S1 and S2 present. No murmurs, rubs, or gallops. PULMONARY: Chest is clear to auscultation, no wheezing or crackles. Breath sounds are absent in bilateral lower lung bases. ABDOMEN: Soft, nontender, nondistended, normoactive bowel sounds. No palpable organomegaly. MUSCULOSKELETAL: No joint swelling or deformity. EXTREMITIES: No cyanosis, clubbing, or pedal edema. NEUROLOGICAL: Gross neurological examination did not reveal any focal deficits. SKIN: No rashes. - Labs CBC & Chem 7: 10/18/18 05:12 10/18/18 05:12 Labs: Abnormal Lab Results - Last 24 Hours (Table) 10/17/18 10/18/18 10/18/18 Range/Units 20:41 05:12 05:12 WBC 13.4 H (3.8-10.6) k/uL Sodium 133 L (137-145) mmol/L BUN 18 H (7-17) mg/dL Glucose 157 H (74-99) mg/dL POC Glucose (mg/dL) 282 H (75-99) mg/dL Calcium 7.3 L (8.4-10.2) mg/dL AST 109 H (14-36) U/L ALT 61 H (9-52) U/L Total Protein 5.1 L (6.3-8.2) g/dL Albumin 2.9 L (3.5-5.0) g/dL 10/18/18 10/18/18 10/18/18 Range/Units 07:01 11:22 12:07 WBC (3.8-10.6) k/uL Sodium (137-145) mmol/L BUN (7-17) mg/dL Glucose (74-99) mg/dL POC Glucose (mg/dL) 139 H 118 H 115 H (75-99) mg/dL Calcium (8.4-10.2) mg/dL AST (14-36) U/L ALT (9-52) U/L Total Protein (6.3-8.2) g/dL Albumin (3.5-5.0) g/dL 10/18/18 Range/Units 16:45 WBC (3.8-10.6) k/uL Sodium (137-145) mmol/L BUN (7-17) mg/dL Glucose (74-99) mg/dL POC Glucose (mg/dL) 173 H (75-99) mg/dL Calcium (8.4-10.2) mg/dL AST (14-36) U/L ALT (9-52) U/L Total Protein (6.3-8.2) g/dL Albumin (3.5-5.0) g/dL Microbiology - Last 24 Hours (Table) 10/13/18 23:47 Blood Culture - Preliminary Blood No Growth after 96 hours Assessment and Plan Assessment: Plan: -Severe sepsis: Secondary to right lower lobe pneumonia possibly community-acquired pneumonia since there is no improvement in improvement with significant worsening to bilateral lower lobes of the chest. Patient was switched to vancomycin and Zosyn by infectious disease CAT scan of the chest as mentioned above awaiting blood cultures and sputum cultures which are so far negative. -Acute hypoxic respiratory failure secondary to pneumonia and COPD exacerbation patient was started on systemic steroids and inhalational treatments -Toxic encephalopathy and delirium secondary to sepsis patient .improved -Shortness of breath secondary to sepsis and pneumonia. Patient's BNP is 250 -Hyponatremia hypovolemic hyponatremia and secondary to sepsis patient was started on IV fluids again is, improving -Type 2 diabetes mellitus, patient will be continued on present regimen. Patie nt's hemoglobin A1c is 8.0 -Hyperlipidemia -Lactic is doses seconded to sepsis metformin was discontinued, lactic is doses improved -Hypertension hold off on lisinopril because of sepsis and low blood pressure concerns -Possible history of COPD although with acute exacerbation -Episode of A. fib proximal probably proximal A. fib patient presently is in rapid ventricular rate was started back on amiodarone
[2018-10-18 20:54] LABS: Glucose,Whole Blood 186 mg/dL (75-99)
[2018-10-18] MEDS: AMIODARONE 200 MG TAB PO SCH (21:43)
[2018-10-18] MEDS: INSULIN DETEMIR (LEVEMIR) 100 UNIT/ML SYR SQ SCH (21:43)
[2018-10-18] MEDS: ATORVASTATIN 40 MG TAB PO SCH (21:43)
[2018-10-18] MEDS: MONTELUKAST 10 MG TAB PO SCH (21:43)
--- NOTE | 2018-10-18 22:48 | P.PN ---
Subjective Progress Note Date: 10/18/18 58 -year-old female with history of diabetes mellitus type 2 generally is completely independent relates to approximate 4 day history of feeling poorly. She started to feel fever chills generalized malaise cough with yellowish sputum production and no hemoptysis. Her fever increased she felt w eak and confused and was brought to the emergency center. There she has not evidence of a high-grade fever leukocytosis and sepsis as well as atrial fibrillation, she was treated with a dose of Cardizem with hydration and resolution of her A. fib. The patient continued to feel ill continue to have ongoing fevers because of the consult was requested. At the time of the consult antibiotic therapy was altered and anti-inflammatory with Toradol was requested and the patient is feeling considerably better today. After the first dorsal Toradol her sugar went from 103.5-99.5. The highest it's been so far today is 101.5. Patient does feel poorly still. She has shortness of breath or oxygen therapy she has cough without much sputum production or hemoptysis does have discomfort in her chest with coughing. 10/17/2018 the patient had significant worsening of her status overnight. She developed atrial fibrillation with a rapid ventricular response and was brought to the intensive care unit has been treated with Cardizem and amiodarone. She has had an improvement of her cardiac dysrhythmia and is somewhat less short of breath. She had further fever which is now much improved since her transfer to the intensive care unit. She relates she still feels poorly but better than last night. She is not having chest pain. No chills or rigors are occurring at this time. 10/18/2018 patient is now feeling somewhat better. She is much less short of breath. Fevers have resolved. Cardiac dysrhythmia has improved. Leukocytosis is also improving. Objective - Vital Signs Vital signs: Vital Signs Temp 98.0 F 10/18/18 21:00 Pulse 73 10/18/18 21:00 Resp 17 10/18/18 21:00 BP 124/65 10/18/18 21:00 Pulse Ox 99 10/18/18 21:00 Intake & Output 10/18/18 10/18/18 10/19/18 06:59 18:59 06:59 Intake Total 1798 2040 Output Total 830 1000 Balance 968 1040 Weight 93.4 kg Intake: IV 1798 1000 .9 1200 1000 Piperacillin-Tazobactam 3 100 .375 gm In Sodium Chloride 0.9% 100 ml @ 25 mls/hr IVPB Q8H [facility] Rx#: [id number] Vancomycin 1,750 mg In 498 Sodium Chloride 0.9% 500 ml 500 ml @ 166.667 mls/ hr IVPB Q12H [facility] Rx#: [id number] Intake, IV Titration 800 Amount Sodium Chloride 0.9% 1, 300 000 ml @ 100 mls/hr IV . Q10H [facility] Rx#:[id number] Vancomycin 1,750 mg In 500 Sodium Chloride 0.9% 500 ml 500 ml @ 166.667 mls/ hr IVPB Q12H [facility] Rx#: [id number] Oral 240 Output: Urine 830 1000 Other: Voiding Method Bedside Commode Bedside Commode # Voids 1 # Bowel Movements 1 - Exam 58 -year-old woman, overweight build and somewhat uncomfortable HEENT: Anicteric conjunctiva are pink and moist nasal mucosa grossly intact without significant lesions, there is no thrush. Neck: The neck is supple without significant lymphadenopathy or thyromegaly. Lungs: Symmetrical bilateral air entry,there is no evidence of air entry i with some crackles noted a few crackles at the right posterior mid zone, posterior left lower zone also with crackles no distinct egophony nor dullness in either area some expiratory wheezes are scattered Heart: Regular rate and rhythm with an audible S1-S2, no S3 no S4. There is no significant murmur click or rub, PMI was nondisplaced. Abdomen: Obese, Positive bowel sounds soft and nontender without palpable masses or organomegaly. There was no guarding or rebound. Extremities: The upper extremities have excellent pulses they are symmetric, no significant petechiae or telangiectasia. No splinter hemorrhages were noted. The lower extremities are free from significant edema. The peripheral pulses were 2+ and symmetric. Neuro: Awake alert oriented to person place and time. There are no acute new gross focal sensory motor deficits. - Labs CBC & Chem 7: 10/18/18 05:12 10/18/18 05:12 Labs: Abnormal Lab Results - Last 24 Hours (Table) 10/18/18 10/18/18 10/18/18 Range/Units 05:12 05:12 07:01 WBC 13.4 H (3.8-10.6) k/uL Sodium 133 L (137-145) mmol/L BUN 18 H (7-17) mg/dL Glucose 157 H (74-99) mg/dL POC Glucose (mg/dL) 139 H (75-99) mg/dL Calcium 7.3 L (8.4-10.2) mg/dL AST 109 H (14-36) U/L ALT 61 H (9-52) U/L Total Protein 5.1 L (6.3-8.2) g/dL Albumin 2.9 L (3.5-5.0) g/dL 10/18/18 10/18/18 10/18/18 Range/Units 11:22 12:07 16:45 WBC (3.8-10.6) k/uL Sodium (137-145) mmol/L BUN (7-17) mg/dL Glucose (74-99) mg/dL POC Glucose (mg/dL) 118 H 115 H 173 H (75-99) mg/dL Calcium (8.4-10.2) mg/dL AST (14-36) U/L ALT (9-52) U/L Total Protein (6.3-8.2) g/dL Albumin (3.5-5.0) g/dL 10/18/18 Range/Units 20:53 WBC (3.8-10.6) k/uL Sodium (137-145) mmol/L BUN (7-17) mg/dL Glucose (74-99) mg/dL POC Glucose (mg/dL) 186 H (75-99) mg/dL Calcium (8.4-10.2) mg/dL AST (14-36) U/L ALT (9-52) U/L Total Protein (6.3-8.2) g/dL Albumin (3.5-5.0) g/dL Microbiology - Last 24 Hours (Table) 10/13/18 23:47 Blood Culture - Preliminary Blood No Growth after 96 hours Laboratory Results WBC 13.4 k/uL (3.8-10.6) H 10/18/18 05:12 RBC 4.25 m/uL (3.80-5.40) 10/18/18 05:12 Hgb 12.1 gm/dL (11.4-16.0) 10/18/18 05:12 Hct 38.8 % (34.0-46.0) 10/18/18 05:12 MCV 91.2 fL (80.0-100.0) 10/18/18 05:12 MCH 28.4 pg (25.0-35.0) 10/18/18 05:12 MCHC 31.1 g/dL (31.0-37.0) 10/18/18 05:12 RDW 14.9 % (11.5-15.5) 10/18/18 05:12 Plt Count 219 k/uL (150-450) 10/18/18 05:12 Neutrophils % 78 % 10/16/18 09:11 Lymphocytes % 17 % 10/16/18 09:11 Monocytes % 3 % 10/16/18 09:11 Eosinophils % 0 % 10/16/18 09:11 Basophils % 0 % 10/16/18 09:11 Neutrophils # 4.9 k/uL (1.3-7.7) 10/16/18 09:11 Lymphocytes # 1.1 k/uL (1.0-4.8) 10/16/18 09:11 Monocytes # 0.2 k/uL (0-1.0) 10/16/18 09:11 Eosinophils # 0.0 k/uL (0-0.7) 10/16/18 09:11 Basophils # 0.0 k/uL (0-0.2) 10/16/18 09:11 PT 10.5 sec (9.0-12.0) 10/13/18 23:47 INR 1.0 (<1.2) 10/13/18 23:47 APTT 28.8 sec (22.0-30.0) 10/13/18 23:47 Sodium 133 mmol/L (137-145) L 10/18/18 05:12 Potassium 4.4 mmol/L (3.5-5.1) 10/18/18 05:12 Chloride 103 mmol/L (98-107) 10/18/18 05:12 Carbon Dioxide 22 mmol/L (22-30) 10/18/18 05:12 Anion Gap 8 mmol/L 10/18/18 05:12 BUN 18 mg/dL (7-17) H 10/18/18 05:12 Creatinine 0.82 mg/dL (0.52-1.04) 10/18/18 05:12 Est GFR (CKD-EPI)AfAm >90 (>60 ml/min/1.73 sqM) 10/18/18 05:12 Est GFR (CKD-EPI)NonAf 79 (>60 ml/min/1.73 sqM) 10/18/18 05:12 Glucose 157 mg/dL (74-99) H 10/18/18 05:12 POC Glucose (mg/dL) 186 mg/dL (75-99) H 10/18/18 20:53 POC Glu [employer] Supervisor ID Livia Alba 10/18/18 20:[address] Glu mg/dL 186 10/15/18 06:32 Hemoglobin A1c 8.1 % (4.0-6.0) H 10/15/18 06:32 Plasma Lactic Acid Bola 0.8 mmol/L (0.7-2.0) 10/16/18 16:53 Calcium 7.3 mg/dL (8.4-10.2) L 10/18/18 05:12 Magnesium 2.6 mg/dL (1.6-2.3) H 10/17/18 08:05 Total Bilirubin 0.3 mg/dL (0.2-1.3) 10/18/18 05:12 AST 109 U/L (14-36) H 10/18/18 05:12 ALT 61 U/L (9-52) H 10/18/18 05:12 Alkaline Phosphatase 59 U/L (38-126) 10/18/18 05:12 NT-Pro-B Natriuret Pep 256 pg/mL 10/15/18 06:32 Total Protein 5.1 g/dL (6.3-8.2) L 10/18/18 05:12 Albumin 2.9 g/dL (3.5-5.0) L 10/18/18 05:12 Urine Color Yellow 10/13/18 18:06 Urine Appearance Clear (Clear) 10/13/18 18:06 Urine pH 5.5 (5.0-8.0) 10/13/18 18:06 Ur Specific [place] 1.015 (1.001-1.035) 10/13/18 18:06 Urine Protein Trace (Negative) H 10/13/18 18:06 Urine Glucose (UA) Negative (Negative) 10/13/18 18:06 Urine Ketones 2+ (Negative) H 10/13/18 18:06 Urine Blood Moderate (Negative) H 10/13/18 18:06 Urine Nitrite Negative (Negative) 10/13/18 18:06 Urine Bilirubin Negative (Negative) 10/13/18 18:06 Urine Urobilinogen <2.0 mg/dL (<2.0) 10/13/18 18:06 Ur Leukocyte Esterase Negative (Negative) 10/13/18 18:06 Urine RBC 8 /hpf (0-5) H 10/13/18 18:06 Urine WBC 4 /hpf (0-5) 10/13/18 18:06 Ur Squamous Epith Cells 1 /hpf (0-4) 10/13/18 18:06 Urine Bacteria Rare /hpf (None) H 10/13/18 18:06 Urine Mucus Rare /hpf (None) H 10/13/18 18:06 Vancomycin Trough 11.4 ug/mL 10/17/18 08:05 C. difficile (EIA) Intrp Negative (Negative) 10/14/18 19:48 Microbiology 10/13/18 23:47 Blood Blood Culture - Preliminary No Growth after 96 hours 10/13/18 18:06 Urine,Voided Urine Culture - Final Assessment and Plan (1) Paroxysmal atrial fibrillation with rapid ventricular response Current Visit: Yes Status: Acute Code(s): I48.0 - PAROXYSMAL ATRIAL FIBRILLATION SNOMED Code(s): 093993413 (2) Bilateral pneumonia Narrative/Plan: 58-year-old female presents to hospital with a several-day history of increasing illness this is high-grade fever chills or malaise and cough without much sputum production. There is evidence of pneumonia minimally by chest x-ray the patient was remaining very ill with fevers of 103 despite antibiotic therapy. A consult was requested and at that time antibiotic therapy was altered to cover for gram negatives including Pseudomonas as well as resistant gram-positive pathogen such as MRSA and vancomycin was added. For fever Toradol was added given the normal renal function and there is no evidence of improvement of how the patient is feeling with this. Fevers have trended to improvement. Will allow further doses of Toradol Renal function to be followed The patient is requiring oxygen therapy and this is being monitored also. Blood glucoses are being monitored. Leukocytosis is trending to improvement Diarrhea did occur and C. diff testing was negative. Lomotil be requested to improve some diarrhea patient encouraged to utilize yogurt with meals. 10/17/2018 is noted the patient had acute worsening of her status with rec urrent fever to 103 with the development of atrial fibrillation with rapid ventricular response and transferred to intensive care unit. She's been seen by pulmonary critical care. If there is no further improvement will consider bronchoscopy. Her fever has now resolved and she feels just minimally better. Does complain of a significant oral discomfort cool solution requested 10/18/2018 he shouldn't is improved today. She is less short of breath. The subdural discomfort is improved and has done well with the cool solution. She is eating today. There is no further fever or chills Pruritic chest discomforts have improved She is starting to mobilize some secretions which has helped her shortness of breath. Appetite poor but she is eating without difficulty Continue current antibiotic therapy, no plans for bronchoscopy at this time Current Visit: Yes Status: Acute Code(s): J18.9 - PNEUMONIA, UNSPECIFIED ORGANISM SNOMED Code(s): 877140391 (3) Fever Current Visit: Yes Status: Acute Code(s): R50.9 - FEVER, UNSPECIFIED SNOMED Code(s): 375889130 (4) Leukocytosis Current Visit: Yes Status: Acute Code(s): D72.829 - ELEVATED WHITE BLOOD CELL COUNT, UNSPECIFIED SNOMED Code(s): 787284625
[2018-10-18] MEDS: AZITHROMYCIN 500 MG TAB PO SCH (22:52)
[2018-10-18] MEDS: SERTRALINE 50 MG TAB PO SCH (22:52)
[2018-10-19] MEDS: KETOROLAC 30 MG/ML 1 ML VIAL IVP SCH ×2 (05:09→10:30)
[2018-10-19] MEDS: PIPERACILLIN-TAZOBACTAM 3.375 GM in SODIUM CHLORIDE 0.9% 100 ML IVPB SCH ×3 (05:10→21:52)
[2018-10-19] MEDS: SODIUM CHLORIDE 0.9% 1,000 ML IV SCH ×2 (05:10→18:13)
[2018-10-19 06:44] LABS: Glucose,Whole Blood 125 mg/dL (75-99)
[2018-10-19] MEDS: INSULIN ASPART (NovoLOG) 100 UNIT/ML VIAL SQ SCH ×4 (06:44→21:53)
[2018-10-19] MEDS: PANTOPRAZOLE 40 MG TABLET PO SCH (06:45)
[2018-10-19] MEDS ORDERED: VANCOMYCIN TROUGH DUE 1 EACH MISC MISCELLANE ONE (07:00)
[2018-10-19 07:30] LABS: HCT 37.9 % (34.0-46.0); HGB 11.7 gm/dL (11.4-16.0); MCH 28.4 pg (25.0-35.0); MCHC 30.9 g/dL (31.0-37.0); MCV 92.1 fL (80.0-100.0); Mean Platelet Volume 7.9; Platelet Count 277 k/uL (150-450); RBC 4.11 m/uL (3.80-5.40); WBC 8.5 k/uL (3.8-10.6)
[2018-10-19 07:44] LABS: Albumin 2.7 g/dL (3.5-5.0); Calcium 7.5 mg/dL (8.4-10.2); Potassium 4.6 mmol/L (3.5-5.1); Total Bilirubin 0.3 mg/dL (0.2-1.3)
[2018-10-19] MEDS: SYMBICORT 80-4.5 MCG INHALER INHALATION SCH ×3 (08:11→18:47)
[2018-10-19] MEDS: IPRATROPIUM-ALBUTEROL 3 ML NEB INHALATION SCH ×4 (08:11→18:45)
[2018-10-19] MEDS: VANCOMYCIN 1,750 MG in SODIUM CHLORIDE 0.9% 500 ML 500 ML IVPB SCH (08:36)
[2018-10-19] MEDS: MAGNESIUM OXIDE 400 MG TAB PO SCH (08:43)
[2018-10-19] MEDS: AMIODARONE 200 MG TAB PO SCH ×2 (08:43→21:50)
[2018-10-19] MEDS: APIXABAN 5 MG TAB PO SCH ×2 (08:43→21:51)
[2018-10-19] MEDS: METOPROLOL TARTRATE 25 MG TAB PO SCH ×2 (08:44→21:51)
[2018-10-19] MEDS: MAG HYDROX/AL HYDROX/SIMETH 30 ML, LIDOCAINE VISCOUS 30 ML, NYSTATIN 100,000 UNIT/ML SU... PO SCH ×12 (08:44→21:53)
[2018-10-19] MEDS: predniSONE 20 MG TAB PO SCH (08:44)
[2018-10-19] MEDS: POTASSIUM CHLORIDE ER 20 MEQ TAB.ER PO SCH (08:45)
[2018-10-19] MEDS: FUROSEMIDE 10 MG/ML 4 ML VIAL IV SCH (10:30)
--- NOTE | 2018-10-19 11:49 | P.NPCON ---
History of Present Illness - Reason for Consult acute renal failure - History of Present Illness Reason for consultation: Acute kidney injury History of present illness: Patient is a 58-year-old female seen in consultation for acute kidney injury. Patient denies any history of kidney disease. Baseline creatinine is near 1. It is 1.15 today. Patient presented to the hospital on 10/13/2018 with fever as well as nausea and vomiting. She was also having a productive cough. She is currently being treated for pneumonia. She still admits to a productive cough with clear to brown sputum. She is maintained on IV Zosyn and IV vancomycin. Vancomycin level was 25.7 this morning. She was also receiving Toradol for pain. Last dose was this morning. Patient was hypotensive with systolic blood pressure in the 90s on admission. This morning her blood pressure was 109/68. She admits to good urine output. No hematuria or dysuria. Denies use of nonsteroidals at home. She is having loose bowel movements. C. diff was negative this admission. Oral intake is good. She was started on IV Lasix t rob due to edema. She also received IV contrast for CT of the chest on October 15. Patient also maintained on anticoagulation and oral amiodarone and Lopressor for paroxysmal A. fib. Heart rate is currently controlled. She does have history of diabetes mellitus. She states she was diagnosed about 5 years ago. Patient's mother was also on hemodialysis. According to the patient etiology was high blood pressure. Vital signs are stable. General: The patient appeared well nourished and normally developed. HEENT: Head exam is unremarkable. Neck is without jugular venous distension. LUNGS: Breath sounds decreased. HEART: Rate and Rhythm are regular. First and second heart sounds normal. No m urmurs, rubs or gallops. ABDOMEN: Abdominal exam reveals normal bowel sounds. Non-tender and non-di stended. EXTREMITITES: 1+ edema. Past Medical History Past Medical History: Diabetes Mellitus History of Any Multi-Drug Resistant Organisms: None Reported Past Surgical History: Unable to Obtain Additional Past Surgical History / Comment(s): Bilateral thumbs Past Anesthesia/Blood Transfusion Reactions: Postoperative Nausea & Vomiting (PONV) Past Psychological History: No Psychological Hx Reported Smoking Status: Former smoker Past Alcohol Use History: None Reported Past Drug Use History: None Reported - Past Family History Mother Family Medical History: Renal Disease Father History Unknown: Yes Medications and Allergies Home Medications Medication Instructions Recorded Confirmed Type Albuterol Nebulized [Ventolin 2.5 mg INHALATION RT-QID 10/14/18 10/14/18 History Nebulized] Atorvastatin [Lipitor] 40 mg PO HS 10/14/18 10/14/18 History Budesonide/Formoterol Fumarate 1 puff INHALATION RT-BID 10/14/18 10/14/18 History [Symbicort 80-4.5 Mcg Inhaler] Insulin Aspart [NovoLOG] 10 units SQ AC-TID 10/14/18 10/14/18 History Insulin Detemir (Levemir) [Levemir] 40 unit SQ HS 10/14/18 10/14/18 History Lisinopril 20 mg PO DAILY 10/14/18 10/14/18 History Montelukast [Singulair] 10 mg PO HS 10/14/18 10/14/18 History Omeprazole 20 mg PO DAILY 10/14/18 10/14/18 History Sertraline [Zoloft] 50 mg PO HS 10/14/18 10/14/18 History metFORMIN HCL 500 mg PO BID 10/14/18 10/14/18 History predniSONE 5 mg PO DAILY 10/14/18 10/14/18 History sitaGLIPtin [Januvia] 50 mg PO DAILY 10/14/18 10/14/18 History Apixaban [Eliquis] 5 mg PO BID #60 tab 10/19/18 Rx Allergies Allergy/AdvReac Type Severity Reaction Status Date / Time No Known Allergies Allergy Verified 10/14/18 07:49 Physical Exam Vitals: Vital Signs Temp Pulse Pulse Resp BP Pulse Ox 10/19/18 11:38 70 10/19/18 08:21 77 10/19/18 08:14 73 10/19/18 08:00 98.4 F 80 21 109/68 95 10/19/18 05:00 72 24 117/73 100 10/19/18 04:00 98.5 F 67 67 18 106/79 95 10/19/18 03:00 69 24 110/63 95 10/19/18 02:00 67 19 104/68 96 10/19/18 01:13 95 10/19/18 01:00 68 17 111/56 96 10/19/18 00:00 98.4 F 75 25 H 116/94 95 10/18/18 23:00 78 21 112/68 94 L 10/18/18 22:00 76 16 120/73 58 L 10/18/18 21:11 81 29 H 120/73 98 10/18/18 21:00 98.0 F 73 17 124/65 99 10/18/18 20:00 80 12 109/68 100 10/18/18 19:48 79 10/18/18 19:37 74 96 10/18/18 17:00 87 16 123/80 98 10/18/18 16:00 98.6 F 93 16 104/68 96 10/18/18 15:39 79 10/18/18 15:25 82 10/18/18 15:00 80 18 119/73 96 10/18/18 14:00 80 14 122/88 93 L 10/18/18 13:00 94 20 104/85 94 L 10/18/18 12:02 67 11 L 10/18/18 12:00 98.2 F 71 14 113/82 97 10/18/18 11:48 66 11 L Intake and Output 10/18/18 10/19/18 10/19/18 22:59 06:59 14:59 Intake Total 1805.0 1792.5 580 Output Total 600 400 Balance 1205.0 1392.5 580 Intake: IV 225.0 812.5 80 .9 200 Piperacillin-Tazobactam 3 25.0 112.5 .375 gm In Sodium Chloride 0.9% 100 ml @ 25 mls/hr IVPB Q8H [facility] Rx#: [id number] Sodium Chloride 0.9% 1, 700 80 000 ml @ 20 mls/hr IV . Q24H [facility] Rx#:[id number] Intake, IV Titration 1100 500 500 Amount Sodium Chloride 0.9% 1, 600 000 ml @ 20 mls/hr IV . Q24H [facility] Rx#:[id number] Vancomycin 1,750 mg In 500 500 Sodium Chloride 0.9% 500 ml 500 ml @ 166.667 mls/ hr IVPB Q12H [facility] Rx#: [id number] Vancomycin 1,750 mg In 500 Sodium Chloride 0.9% 500 ml 500 ml @ 166.667 mls/ hr IVPB Q24H [facility] Rx#: [id number] Oral 480 480 Output: Urine 600 300 Stool 100 Other: Voiding Method Bedside Commode Bedside Commode Bedside Commode # Voids 1 1 # Bowel Movements 1 1 Weight 93.8 kg Results - Lab Results Most recent lab results Calcium 7.5 mg/dL (8.4-10.2) L 10/19/18 07:08 Magnesium 2.6 mg/dL (1.6-2.3) H 10/17/18 08:05 10/19/18 07:08 10/19/18 07:08 Assessment and Plan Plan: Assessment: 1. Acute kidney injury secondary to ATN secondary to hemodynamic instability, contrast-induced nephropathy and sepsis. Baseline creatinine 1. It is 1.15 today. Trace proteinuria noted on UA. 2. Mild volume overload. 3. Sepsis secondary to pneumonia maintained on antibiotics. 4. A. fib with RVR. Currently rate controlled. Maintain on oral amiodarone and Lopressor. Also on anticoagulation. Cardiology following. 5. Insulin-dependent diabetes mellitus. Plan: Maintain Lasix 40 mg IV daily. Avoid nephrotoxins. Discontinue Toradol. Continue to monitor renal function and urine output. Monitor vancomycin levels. Dose to be adjusted for renal function. Thank you for the consultation. I will continue to follow the patient with you during her hospital stay.
[2018-10-19 11:51] LABS: Glucose,Whole Blood 109 mg/dL (75-99)
--- NOTE | 2018-10-19 12:25 | P.PN ---
Subjective 58-year-old female admitted for pneumonia in the right lower lung ortega therapy to the chest x-ray today with right showing infiltrate in both lung lower lobes and a prominent fissure. Patient still febrile patient can use to be on Rocephin and azithromycin Lisa consulting infectious disease, patient's is still fatigued and malaise is in distress because of fatigue and sepsis. Continues to have high-grade fever. I'll obtain a BNP and echocardiogram as well because of bilateral lower infiltrates the possibility of effusion and a prominent fissure. He should and lungs are clear to auscultation but has saturations of 92%. Patient may require a CAT scan of the chest and pulmonary consultation. 10/16/2018 Patient looks much better today feels better today. Patient CAT scan of the chest which showed significant consolidation of the right middle lobe and by lateral lower lobes most probably pneumonia patient was evaluated pulmonary and infectious disease patient was started on the Lasix empirically by pulmonology. Patient's sister Zosyn and vancomycin by infectious disease. 10/17/2018 Patient had worsening in her clinical status as today requiring high amounts of causes started wheezing patient was started on systemic steroids transferred to ICU. Patient is hyponatremic no evidence of for heart failure exacerbation at this time patient was started on IV fluids again. Although her fever has gotten better yesterday it was very high. Patient looks better because of resolution of fever and systemic inflammatory response. Sputum cultures are not available which will be ordered. Patient went into A. fib and patient is requiring amiodarone drip at this time. 10/18/2018 pt is seen in the ICU, she presents with sepsis secondary to Bilateral pneumonia, pt is also treated for possible acute copd exacerbation ,pt is alr halle on antibiotic and steroids, today chest us showing no fluid collection , no need for thoracocentasis, hypodermically stable she is saturation 98% on 8 L oxygen via high flow oxygen. her wbc 13K. Na 133 today 10/19/2018 Patient in the ICU, was drowsy could be part of her acute delirium from her sepsis. However she is answering questions appropriately. She still LIMITS of dyspnea and she has bilateral basal crepitation. Lasix was continue with by pulmonary team recommendation. Patient is hemodynamically stable however she is a little bit tachypneic. She still on 6 L oxygen high flow with oxygen saturating at 95%. Labs reviewed, CBC is unremarkable. Creatinine is increased from 0.7 up to 1.1, nephrology team has been consulted. Patient remains on vancomycin as per infectious disease recommendation with pharmacy to dose. Also she is on Zosyn. CONSTITUTIONAL: No fever, no malaise, no fatigue. HEENT: No recent visual problems or hearing problems. Denied any sore throat. CARDIOVASCULAR: no syncope. PULMONARY: no hemoptysis. GASTROINTESTINAL: No diarrhea, no nausea, no vomiting, no abdominal pain. Normoactive bowel sounds. NEUROLOGICAL: No headaches, no weakness, no numbness. HEMATOLOGICAL: Denies any bleeding or petechiae. GENITOURINARY: Denies any burning micturition, frequency, or urgency. MUSCULOSKELETAL/RHEUMATOLOGICAL: Denies any joint pain, swelling, or any muscle pain. ENDOCRINE: Denies any polyuria or polydipsia. Medication: Tylenol 650 mg, albuterol 0.5 mg , Eliquis 5 mg, amiodarone 200 mg, Zithromax 500 mg, Symbicort 80-4.5 g, Lomotil 1 tablet each, Lasix 40 mg, insulin as part as per scale, Levemir insulin 30 units, magnesium oxide 400 mg, Lopressor 25 mg, Singulair 10 mg, Protonix 40 mg, Zosyn 3.375 mg, is on 40 mg, Zoloft physical exam, vancomycin 1750 mg. Objective - Vital Signs Vital signs: Vital Signs Temp 97.8 F 10/19/18 12:00 Pulse 71 10/19/18 12:00 Resp 26 H 10/19/18 12:00 BP 128/77 10/19/18 12:00 Pulse Ox 95 10/19/18 12:00 Intake & Output 10/18/18 10/19/18 10/19/18 18:59 06:59 18:59 Intake Total 2040 2857.5 600 Output Total 1000 400 Balance 1040 2457.5 600 Weight 93.8 kg Intake: IV 1000 837.5 100 .9 1000 Piperacillin-Tazobactam 3 137.5 .375 gm In Sodium Chloride 0.9% 100 ml @ 25 mls/hr IVPB Q8H [facility] Rx#: [id number] Sodium Chloride 0.9% 1, 700 100 000 ml @ 20 mls/hr IV . Q24H [facility] Rx#:[id number] Intake, IV Titration 800 1300 500 Amount Sodium Chloride 0.9% 1, 300 300 000 ml @ 20 mls/hr IV . Q24H [facility] Rx#:[id number] Vancomycin 1,750 mg In 500 1000 Sodium Chloride 0.9% 500 ml 500 ml @ 166.667 mls/ hr IVPB Q12H [facility] Rx#: [id number] Vancomycin 1,750 mg In 500 Sodium Chloride 0.9% 500 ml 500 ml @ 166.667 mls/ hr IVPB Q24H [facility] Rx#: [id number] Oral 240 720 Output: Urine 1000 300 Stool 100 Other: Voiding Method Bedside Commode Bedside Commode Bedside Commode # Voids 1 # Bowel Movements 1 1 - Exam GENERAL: The patient is alert and oriented x3, not in acute distress. He is on 12 L of high flow numbness cannula oxygen HEENT: Pupils are round and equally reacting to light. EOMI. No scleral icterus. No conjunctival pallor. Normocephalic, atraumatic. No pharyngeal erythema. No thyromegaly. CARDIOVASCULAR: S1 and S2 present. No murmurs, rubs, or gallops. -PULMONARY: Chest is clear to auscultation, no wheezing or crackles. Breath sounds are absent in bilateral lower lung bases. Bilateral basal crepitation ABDOMEN: Soft, nontender, nondistended, normoactive bowel sounds. No palpable organomegaly. MUSCULOSKELETAL: No joint swelling or deformity. EXTREMITIES: No cyanosis, clubbing, or pedal edema. NEUROLOGICAL: Gross neurological examination did not reveal any focal deficits. SKIN: No rashes. - Labs CBC & Chem 7: 10/19/18 07:08 10/19/18 07:08 Labs: Abnormal Lab Results - Last 24 Hours (Table) 10/18/18 10/18/18 10/19/18 Range/Units 16:45 20:53 06:42 MCHC (31.0-37.0) g/dL BUN (7-17) mg/dL Creatinine (0.52-1.04) mg/dL Glucose (74-99) mg/dL POC Glucose (mg/dL) 173 H 186 H 125 H (75-99) mg/dL Calcium (8.4-10.2) mg/dL AST (14-36) U/L ALT (9-52) U/L Total Protein (6.3-8.2) g/dL Albumin (3.5-5.0) g/dL 10/19/18 10/19/18 10/19/18 Range/Units 07:08 07:08 11:49 MCHC 30.9 L (31.0-37.0) g/dL BUN 22 H (7-17) mg/dL Creatinine 1.15 H (0.52-1.04) mg/dL Glucose 119 H (74-99) mg/dL POC Glucose (mg/dL) 109 H (75-99) mg/dL Calcium 7.5 L (8.4-10.2) mg/dL AST 84 H (14-36) U/L ALT 65 H (9-52) U/L Total Protein 5.0 L (6.3-8.2) g/dL Albumin 2.7 L (3.5-5.0) g/dL Microbiology - Last 24 Hours (Table) 10/13/18 23:47 Blood Culture - Preliminary Blood No Growth after 120 hours 10/18/18 08:20 Gram Stain - Preliminary Sputum Assessment and Plan Assessment: Plan: -Severe sepsis: Secondary to right lower lobe pneumonia possibly community- acquired pneumonia since there is no improvement in improvement with significant worsening to bilateral lower lobes of the chest. Patient was switched to vancomycin and Zosyn by infectious disease CAT scan of the chest as mentioned above awaiting blood cultures and sputum cultures which are so far negative. -acute kidney injury , nephrology consult is appreciated, hold toradol . monitor creatinine and adjust dose of vancomycin as per pharmacy -Acute hypoxic respiratory failure secondary to pneumonia and COPD exacerbation patient was started on systemic steroids and inhalational treatments -Toxic encephalopathy and delirium secondary to sepsis patient .improved -Shortness of breath secondary to sepsis and pneumonia. Patient's BNP is 250 -Hyponatremia hypovolemic hyponatremia and secondary to sepsis patient was started on IV fluids again is, improving -Type 2 diabetes mellitus, patient will be continued on present regimen. Edson nicole's hemoglobin A1c is 8.0 -Hyperlipidemia -Lactic is doses seconded to sepsis metformin was discontinued, lactic is doses improved -Hypertension hold off on lisinopril because of sepsis and low blood pressure concerns -Possible history of COPD although with acute exacerbation -Episode of A. fib proximal probably proximal A. fib patient presently is in rapid ventricular rate was started back on amiodarone
--- NOTE | 2018-10-19 12:35 | P.PN ---
Subjective Progress Note Date: 10/19/18 Principal diagnosis: Acute hypoxic respiratory failure secondary to extensive pneumonia involving both lungs this is a 58-year-old femalewith history of diabetes, nonsmoker, patient presented to the ER on 10/13/2018,and she was complaining mostly of feeling sick, complaining of intermittent episodes of nausea and vomiting. Patient was also noted to be delirious and confused and she was noted to have fever and leukocytosis. Chest x-ray and CT of the chest showed a right lower lobe and right middle lobe. Consolidation. It also showed some partial atelectasis in the inferior lingula and a left lower lobe.patient was also noted to have high- grade fever with leukocytosis and she was noted to have intermittent episodes of atrial fibrillation with RVR. Treated with Cardizem, seen by cardiology on consultation, and the patient was noted to have worsening hypoxia and her oxygen requirement was getting more and more since admission, has the patient was transferred yesterday to the intensive care unit, and we were asked to see her on consultation. Patient denies any significant pulmonary symptoms during my evaluation, denies even being short of breath, denies any cough, and she denies any wheezing.she was already seen by Dr. Juares on consultation, and she was started empirically on antibiotics includingZosyn and vancomycin.patient remains on IV Cardizem, and she is also on metoprolol. However when she was seen by cardiology today, plan was to start the patient on amiodarone and discontinue Cardizem. Patient was reevaluated today in the ICU on 10/18/2018, remains on a high flow nasal cannula at 10 L/m, O2 saturation is definitely improving compared to yes terday. Her O2 saturation is 97% today. Remains on amiodarone, drip at present, chest x-ray today however is showing improvement in overall aeration, but there is a new right-sided pleural effusion associated with atelectasis. Improved aeration noted in the left lung base. Hence we will likely consider ultrasound of the chest, and proceed to thoracentesis in the effusion isn't large enough to be drained to improve her oxygenation further. At the same time the thoracentesis will be diagnostic as well as therapeutic. Labs from today were all reviewed. Blood cultures are negative since admission. Patient herself seems to be quite comfortable, feeling better overall. Breathing a lot easier. Reevaluated today on 10/19/2018, patient is feeling better from the pulmonary perspective, however she is complaining of generalized weakness, and swelling in her lower extremities. She is now on oral amiodarone, off IV amiodarone. Her atrial fibrillation seems to be well controlled, and her O2 saturation is 95% on 5 L nasal cannula. Electrolytes are relatively normal except for elevated c reatinine of 1.15 today, hemoglobin is 8.5 hemoglobin is 11.7. No chest x-ray was done today, ultrasound of the chest failed to show significant right-sided pleural effusion to consider thoracentesis. Hence the findings are mostly findings of atelectasis in the right base. And the patient was advised to use more and more her incentive spirometer. And to do more deep coughing and deep breathing. Objective - Vital Signs Vital signs: Vital Signs Temp 97.8 F 10/19/18 12:00 Pulse 71 10/19/18 12:00 Resp 26 H 10/19/18 12:00 BP 128/77 10/19/18 12:00 Pulse Ox 95 10/19/18 12:00 Intake & Output 10/18/18 10/19/18 10/19/18 18:59 06:59 18:59 Intake Total 2040 2857.5 600 Output Total 1000 400 Balance 1040 2457.5 600 Weight 93.8 kg Intake: IV 1000 837.5 100 .9 1000 Piperacillin-Tazobactam 3 137.5 .375 gm In Sodium Chloride 0.9% 100 ml @ 25 mls/hr IVPB Q8H [facility] Rx#: [id number] Sodium Chloride 0.9% 1, 700 100 000 ml @ 20 mls/hr IV . Q24H [facility] Rx#:[id number] Intake, IV Titration 800 1300 500 Amount Sodium Chloride 0.9% 1, 300 300 000 ml @ 20 mls/hr IV . Q24H [facility] Rx#:[id number] Vancomycin 1,750 mg In 500 1000 Sodium Chloride 0.9% 500 ml 500 ml @ 166.667 mls/ hr IVPB Q12H [facility] Rx#: [id number] Vancomycin 1,750 mg In 500 Sodium Chloride 0.9% 500 ml 500 ml @ 166.667 mls/ hr IVPB Q24H [facility] Rx#: [id number] Oral 240 720 Output: Urine 1000 300 Stool 100 Other: Voiding Method Bedside Commode Bedside Commode Bedside Commode # Voids 1 # Bowel Movements 1 1 - Exam Physical Exam: Revealed a 58-year-old female in no distress. On 5 L nasal cannula. Head: Atraumatic, normocephalic. HEENT:[Neck is supple.] [No neck masses.] [No thyromegaly.] [No JVD.]PERRLA, EOMI, no icterus. Throat is clear Chest: [slightly diminished breath sounds at the bases no crackles or rhonchi or wheezes. Symmetrical chest expansion. No chest wall tenderness] Cardiac Exam: [irregular irregular rhythm, no S3 gallop, no murmur.r.] Abdomen: [Soft, nontender, no megaly, no rebound, no guarding, normal bowel sounds.] Extremities: [No clubbing, 2+ bipedal edema., no cyanosis.] Neurological Exam: [No focal neurologic deficit.]alert oriented 3. Psychiatric: Normal mood, affect and mental status examination. Skin: No rashes. - Labs CBC & Chem 7: 10/19/18 07:08 10/19/18 07:08 Labs: Abnormal Lab Results - Last 24 Hours (Table) 10/18/18 10/18/18 10/19/18 Range/Units 16:45 20:53 06:42 MCHC (31.0-37.0) g/dL BUN (7-17) mg/dL Creatinine (0.52-1.04) mg/dL Glucose (74-99) mg/dL POC Glucose (mg/dL) 173 H 186 H 125 H (75-99) mg/dL Calcium (8.4-10.2) mg/dL AST (14-36) U/L ALT (9-52) U/L Total Protein (6.3-8.2) g/dL Albumin (3.5-5.0) g/dL 10/19/18 10/19/18 10/19/18 Range/Units 07:08 07:08 11:49 MCHC 30.9 L (31.0-37.0) g/dL BUN 22 H (7-17) mg/dL Creatinine 1.15 H (0.52-1.04) mg/dL Glucose 119 H (74-99) mg/dL POC Glucose (mg/dL) 109 H (75-99) mg/dL Calcium 7.5 L (8.4-10.2) mg/dL AST 84 H (14-36) U/L ALT 65 H (9-52) U/L Total Protein 5.0 L (6.3-8.2) g/dL Albumin 2.7 L (3.5-5.0) g/dL Microbiology - Last 24 Hours (Table) 10/13/18 23:47 Blood Culture - Preliminary Blood No Growth after 120 hours 10/18/18 08:20 Gram Stain - Preliminary Sputum Assessment and Plan Assessment: impression: 1 acute bilateral pneumonia, considering the presentation of mostly GI symptoms, and mental status change, this could very well be aspiration pneumonia. However the possibility of community-acquired pneumonia is not entirely ruled out. 2 acute sepsis secondary to pneumonia, with fever and leukocytosis but no hypotension requiring pressors. 3paroxysmal atrial fibrillation with RVR. Presently under control with amiodarone. 4 history of diabetes type 2 5 history of asthma patient is maintained on bronchodilators on outpatient basis including albuterol and Symbicort.and Singulair.presently inactive. 6 acute hypoxic respiratory failure secondary to extensive pneumonia involving both lungs. 7 right-sided pleural effusion, was not seen to be significant on ultrasound, hence no plans to do thoracentesis. Recommendation: Continue antibiotics, continue oral amiodarone today as per cardiology, continue bronchodilators, continue high flow should and titrate accordingly, continue bronchodilators, GI and DVT prophylaxis, consider transferring the patient to a monitor bed on selective, Lasix was added because of the significant swelling noted over the last couple of days. Today her legs are extremely swollen and edematous. We'll continue to monitor her renal functioning well on Lasix. Time with Patient: Less than 30
--- NOTE | 2018-10-19 17:01 | P.PN ---
Subjective Progress Note Date: 10/19/18 This 58-year-old female has a recurrence of atrial fibrillation but rate seems to be controlled. Patient is on IV Cardizem and also metoprolol. I'm going to discontinue IV Cardizem and start her on IV amiodarone with the hope of maintaining sinus rhythm. Patient otherwise denies any chest pain. Continues to have shortness of breath and cough. Being treated for pneumonia. Further recommendations depend upon clinical course. 10/19/2018: This patient is still in atrial fibrillation with controlled and corresponds. Being continued for with antibiotic therapy for pneumonia. Patient developed edema of the legs and is being treated with IV Lasix. 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 Patient will continue with amiodarone as an outpatient. Follow-up in the office in one week after discharge Objective - Vital Signs Vital signs: Vital Signs Temp 98.3 F 10/19/18 16:00 Pulse 81 10/19/18 16:00 Resp 22 10/19/18 16:00 BP 140/79 10/19/18 16:00 Pulse Ox 92 L 10/19/18 16:00 Intake & Output 10/18/18 10/19/18 10/19/18 18:59 06:59 18:59 Intake Total 2040 2857.5 1020 Output Total 6872 223 7352 Balance 1040 2457.5 -605 Weight 93.8 kg Intake: IV 1000 837.5 280 .9 1000 Piperacillin-Tazobactam 3 137.5 100 .375 gm In Sodium Chloride 0.9% 100 ml @ 25 mls/hr IVPB Q8H [facility] Rx#: [id number] Sodium Chloride 0.9% 1, 700 180 000 ml @ 20 mls/hr IV . Q24H [facility] Rx#:[id number] Intake, IV Titration 800 1300 500 Amount Sodium Chloride 0.9% 1, 300 300 000 ml @ 20 mls/hr IV . Q24H [facility] Rx#:[id number] Vancomycin 1,750 mg In 500 1000 Sodium Chloride 0.9% 500 ml 500 ml @ 166.667 mls/ hr IVPB Q12H [facility] Rx#: [id number] Vancomycin 1,750 mg In 500 Sodium Chloride 0.9% 500 ml 500 ml @ 166.667 mls/ hr IVPB Q24H [facility] Rx#: [id number] Oral 240 720 240 Output: Urine 3124 283 0776 Stool 100 Other: Voiding Method Bedside Commode Bedside Commode Bedside Commode # Voids 1 # Bowel Movements 1 1 - Exam GENERAL EXAM: Patient is alert and oriented and doesn't appear to be in any acute distress HEENT: Normocephalic. Normal reaction of pupils, equal size, normal range of extraocular motion. No erythema or exudates in the throat. NECK: No masses, no nuchal rigidity. CHEST: No chest wall deformity. LUNGS: Diminished air entry HEART: S1 and S2 normal with no audible mumurs or gallops. Regular rhythm, femorals equal on both sides.. ABDOMEN: No hepatosplenomegaly, normal bowel sounds, no guarding or rigidity. SKIN: No rashes CENTRAL NERVOUS SYSTEM: No focal deficits. EXTREMITIES: No cyanosis, clubbing or edema. - Labs CBC & Chem 7: 10/19/18 07:08 10/19/18 07:08 Labs: Abnormal Lab Results - Last 24 Hours (Table) 10/18/18 10/19/18 10/19/18 Range/Units 20:53 06:42 07:08 MCHC 30.9 L (31.0-37.0) g/dL BUN (7-17) mg/dL Creatinine (0.52-1.04) mg/dL Glucose (74-99) mg/dL POC Glucose (mg/dL) 186 H 125 H (75-99) mg/dL Calcium (8.4-10.2) mg/dL AST (14-36) U/L ALT (9-52) U/L Total Protein (6.3-8.2) g/dL Albumin (3.5-5.0) g/dL 10/19/18 10/19/18 Range/Units 07:08 11:49 MCHC (31.0-37.0) g/dL BUN 22 H (7-17) mg/dL Creatinine 1.15 H (0.52-1.04) mg/dL Glucose 119 H (74-99) mg/dL POC Glucose (mg/dL) 109 H (75-99) mg/dL Calcium 7.5 L (8.4-10.2) mg/dL AST 84 H (14-36) U/L ALT 65 H (9-52) U/L Total Protein 5.0 L (6.3-8.2) g/dL Albumin 2.7 L (3.5-5.0) g/dL Microbiology - Last 24 Hours (Table) 10/13/18 23:47 Blood Culture - Preliminary Blood No Growth after 120 hours 10/18/18 08:20 Gram Stain - Preliminary Sputum Assessment and Plan (1) Essential hypertension Current Visit: Yes Status: Acute Code(s): I10 - ESSENTIAL (PRIMARY) HYPERTENSION SNOMED Code(s): 49204304 (2) Bilateral pneumonia Current Visit: Yes Status: Acute Code(s): J18.9 - PNEUMONIA, UNSPECIFIED O RGANISM SNOMED Code(s): 252970748 (3) Paroxysmal atrial fibrillation with rapid ventricular response Current Visit: Yes Status: Acute Code(s): I48.0 - PAROXYSMAL ATRIAL FIBRILL ATION SNOMED Code(s): 732450762 (4) Sepsis Current Visit: Yes Status: Acute Code(s): A41.9 - SEPSIS, UNSPECIFIED ORGANISM SNOMED Code(s): 36895939 Plan: Continue with the by mouth amiodarone. Continue with anticoagulation. Follow up as an outpatient after discharge. May consider cardioversion in about 4-6 weeks.
[2018-10-19 17:06] LABS: Glucose,Whole Blood 220 mg/dL (75-99)
[2018-10-19 20:39] LABS: Glucose,Whole Blood 198 mg/dL (75-99)
[2018-10-19] MEDS: MONTELUKAST 10 MG TAB PO SCH (21:50)
[2018-10-19] MEDS: SERTRALINE 50 MG TAB PO SCH (21:51)
[2018-10-19] MEDS: ATORVASTATIN 40 MG TAB PO SCH (21:51)
[2018-10-19] MEDS: AZITHROMYCIN 500 MG TAB PO SCH (21:51)
[2018-10-19] MEDS: INSULIN DETEMIR (LEVEMIR) 100 UNIT/ML SYR SQ SCH (21:53)
--- NOTE | 2018-10-19 22:48 | P.PN ---
Subjective Progress Note Date: 10/19/18 58 -year-old female with history of diabetes mellitus type 2 generally is completely independent relates to approximate 4 day history of feeling poorly. She started to feel fever chills generalized malaise cough with yellowish sputum production and no hemoptysis. Her fever increased she felt w eak and confused and was brought to the emergency center. There she has not evidence of a high-grade fever leukocytosis and sepsis as well as atrial fibrillation, she was treated with a dose of Cardizem with hydration and resolution of her A. fib. The patient continued to feel ill continue to have ongoing fevers because of the consult was requested. At the time of the consult antibiotic therapy was altered and anti-inflammatory with Toradol was requested and the patient is feeling considerably better today. After the first dorsal Toradol her sugar went from 103.5-99.5. The highest it's been so far today is 101.5. Patient does feel poorly still. She has shortness of breath or oxygen therapy she has cough without much sputum production or hemoptysis does have discomfort in her chest with coughing. 10/17/2018 the patient had significant worsening of her status overnight. She developed atrial fibrillation with a rapid ventricular response and was brought to the intensive care unit has been treated with Cardizem and amiodarone. She has had an improvement of her cardiac dysrhythmia and is somewhat less short of breath. She had further fever which is now much improved since her transfer to the intensive care unit. She relates she still feels poorly but better than last night. She is not having chest pain. No chills or rigors are occurring at this time. 10/18/2018 patient is now feeling somewhat better. She is much less short of breath. Fevers have resolved. Cardiac dysrhythmia has improved. Leukocytosis is also improving. 10/19/2018 has further improvement. She is however quite sleepy today. Atrial fibrillation is improved. Leukocytosis improving. Appetite still somewhat poor and other than fatigue has improved. Objective - Vital Signs Vital signs: Vital Signs Temp 98.6 F 10/19/18 20:00 Pulse 67 10/19/18 20:00 Resp 20 10/19/18 20:00 BP 148/84 10/19/18 20:00 Pulse Ox 94 L 10/19/18 20:00 Intake & Output 06/10/19/18 10/20/18 06:59 18:59 06:59 Intake Total 2857.5 1300 40 Output Total 400 1925 400 Balance 2457.5 -625 -360 Weight 93.8 kg Intake: IV 837.5 320 40 Piperacillin-Tazobactam 3 137.5 100 .375 gm In Sodium Chloride 0.9% 100 ml @ 25 mls/hr IVPB Q8H [facility] Rx#: [id number] Sodium Chloride 0.9% 1, 700 220 40 000 ml @ 20 mls/hr IV . Q24H [facility] Rx#:[id number] Intake, IV Titration 1300 500 Amount Sodium Chloride 0.9% 1, 300 000 ml @ 20 mls/hr IV . Q24H [facility] Rx#:[id number] Vancomycin 1,750 mg In 1000 Sodium Chloride 0.9% 500 ml 500 ml @ 166.667 mls/ hr IVPB Q12H [facility] Rx#: [id number] Vancomycin 1,750 mg In 500 Sodium Chloride 0.9% 500 ml 500 ml @ 166.667 mls/ hr IVPB Q24H [facility] Rx#: [id number] Oral 720 480 Output: Urine 300 1925 400 Stool 100 Other: Voiding Method Bedside Commode Bedside Commode Bedside Commode # Voids 1 # Bowel Movements 1 1 - Exam 58 -year-old woman, overweight build much improved but was sleepy but with stimulation wakes up and is conversational HEENT: Anicteric conjunctiva are pink and moist nasal mucosa grossly intact without significant lesions, there is no thrush. Neck: The neck is supple without significant lymphadenopathy or thyromegaly. Lungs: Symmetrical bilateral air entry,there is no evidence of air entry i with some crackles noted a few crackles at the right posterior mid zone, posterior left lower zone also with crackles no distinct egophony nor dullness in either area some expiratory wheezes are scattered Heart: Regular rate and rhythm with an audible S1-S2, no S3 no S4. There is no significant murmur click or rub, PMI was nondisplaced. Abdomen: Obese, Positive bowel sounds soft and nontender without palpable masses or organomegaly. There was no guarding or rebound. Extremities: The upper extremities have excellent pulses they are symmetric, no significant petechiae or telangiectasia. No splinter hemorrhages were noted. The lower extremities are free from significant edema. The peripheral pulses were 2+ and symmetric. Neuro: Awake alert oriented to person place and time. There are no acute new gross focal sensory motor deficits. - Labs CBC & Chem 7: 10/19/18 07:08 10/19/18 07:08 Labs: Abnormal Lab Results - Last 24 Hours (Table) 10/19/18 10/19/18 10/19/18 Range/Units 06:42 07:08 07:08 MCHC 30.9 L (31.0-37.0) g/dL BUN 22 H (7-17) mg/dL Creatinine 1.15 H (0.52-1.04) mg/dL Glucose 119 H (74-99) mg/dL POC Glucose (mg/dL) 125 H (75-99) mg/dL Calcium 7.5 L (8.4-10.2) mg/dL AST 84 H (14-36) U/L ALT 65 H (9-52) U/L Total Protein 5.0 L (6.3-8.2) g/dL Albumin 2.7 L (3.5-5.0) g/dL 10/19/18 10/19/18 10/19/18 Range/Units 11:49 17:03 20:37 MCHC (31.0-37.0) g/dL BUN (7-17) mg/dL Creatinine (0.52-1.04) mg/dL Glucose (74-99) mg/dL POC Glucose (mg/dL) 109 H 220 H 198 H (75-99) mg/dL Calcium (8.4-10.2) mg/dL AST (14-36) U/L ALT (9-52) U/L Total Protein (6.3-8.2) g/dL Albumin (3.5-5.0) g/dL Microbiology - Last 24 Hours (Table) 10/13/18 23:47 Blood Culture - Preliminary Blood No Growth after 120 hours 10/18/18 08:20 Gram Stain - Preliminary Sputum Laboratory Results WBC 8.5 k/uL (3.8-10.6) 10/19/18 07:08 RBC 4.11 m/uL (3.80-5.40) 10/19/18 07:08 Hgb 11.7 gm/dL (11.4-16.0) 10/19/18 07:08 Hct 37.9 % (34.0-46.0) 10/19/18 07:08 MCV 92.1 fL (80.0-100.0) 10/19/18 07:08 MCH 28.4 pg (25.0-35.0) 10/19/18 07:08 MCHC 30.9 g/dL (31.0-37.0) L 10/19/18 07:08 RDW 15.0 % (11.5-15.5) 10/19/18 07:08 Plt Count 277 k/uL (150-450) 10/19/18 07:08 Neutrophils % 78 % 10/16/18 09:11 Lymphocytes % 17 % 10/16/18 09:11 Monocytes % 3 % 10/16/18 09:11 Eosinophils % 0 % 10/16/18 09:11 Basophils % 0 % 10/16/18 09:11 Neutrophils # 4.9 k/uL (1.3-7.7) 10/16/18 09:11 Lymphocytes # 1.1 k/uL (1.0-4.8) 10/16/18 09:11 Monocytes # 0.2 k/uL (0-1.0) 10/16/18 09:11 Eosinophils # 0.0 k/uL (0-0.7) 10/16/18 09:11 Basophils # 0.0 k/uL (0-0.2) 10/16/18 09:11 PT 10.5 sec (9.0-12.0) 10/13/18 23:47 INR 1.0 (<1.2) 10/13/18 23:47 APTT 28.8 sec (22.0-30.0) 10/13/18 23:47 Sodium 138 mmol/L (137-145) 10/19/18 07:08 Potassium 4.6 mmol/L (3.5-5.1) 10/19/18 07:08 Chloride 106 mmol/L (98-107) 10/19/18 07:08 Carbon Dioxide 27 mmol/L (22-30) 10/19/18 07:08 Anion Gap 5 mmol/L 10/19/18 07:08 BUN 22 mg/dL (7-17) H 10/19/18 07:08 Creatinine 1.15 mg/dL (0.52-1.04) H 10/19/18 07:08 Est GFR (CKD-EPI)AfAm 60 (>60 ml/min/1.73 sqM) 10/19/18 07:08 Est GFR (CKD-EPI)NonAf 52 (>60 ml/min/1.73 sqM) 10/19/18 07:08 Glucose 119 mg/dL (74-99) H 10/19/18 07:08 POC Glucose (mg/dL) 198 mg/dL (75-99) H 10/19/18 20:37 POC Glu Pharmacy Stock Clerk ID Gina Bain 10/19/18 20:[address] Glu mg/dL 186 10/15/18 06:32 Hemoglobin A1c 8.1 % (4.0-6.0) H 10/15/18 06:32 Plasma Lactic Acid Bola 0.8 mmol/L (0.7-2.0) 10/16/18 16:53 Calcium 7.5 mg/dL (8.4-10.2) L 10/19/18 07:08 Magnesium 2.6 mg/dL (1.6-2.3) H 10/17/18 08:05 Total Bilirubin 0.3 mg/dL (0.2-1.3) 10/19/18 07:08 AST 84 U/L (14-36) H 10/19/18 07:08 ALT 65 U/L (9-52) H 10/19/18 07:08 Alkaline Phosphatase 61 U/L (38-126) 10/19/18 07:08 NT-Pro-B Natriuret Pep 256 pg/mL 10/15/18 06:32 Total Protein 5.0 g/dL (6.3-8.2) L 10/19/18 07:08 Albumin 2.7 g/dL (3.5-5.0) L 10/19/18 07:08 Urine Color Yellow 10/13/18 18:06 Urine Appearance Clear (Clear) 10/13/18 18:06 Urine pH 5.5 (5.0-8.0) 10/13/18 18:06 Ur Specific [place] 1.015 (1.001-1.035) 10/13/18 18:06 Urine Protein Trace (Negative) H 10/13/18 18:06 Urine Glucose (UA) Negative (Negative) 10/13/18 18:06 Urine Ketones 2+ (Negative) H 10/13/18 18:06 Urine Blood Moderate (Negative) H 10/13/18 18:06 Urine Nitrite Negative (Negative) 10/13/18 18:06 Urine Bilirubin Negative (Negative) 10/13/18 18:06 Urine Urobilinogen <2.0 mg/dL (<2.0) 10/13/18 18:06 Ur Leukocyte Esterase Negative (Negative) 10/13/18 18:06 Urine RBC 8 /hpf (0-5) H 10/13/18 18:06 Urine WBC 4 /hpf (0-5) 10/13/18 18:06 Ur Squamous Epith Cells 1 /hpf (0-4) 10/13/18 18:06 Urine Bacteria Rare /hpf (None) H 10/13/18 18:06 Urine Mucus Rare /hpf (None) H 10/13/18 18:06 Vancomycin Trough 25.7 ug/mL 10/19/18 07:08 C. difficile (EIA) Intrp Negative (Negative) 10/14/18 19:48 Urine Legionella Ag Not detected (Not detected) 10/16/18 20:00 Microbiology 10/13/18 23:47 Blood Blood Culture - Preliminary No Growth after 120 hours 10/18/18 08:20 Sputum Gram Stain - Preliminary 10/13/18 18:06 Urine,Voided Urine Culture - Final Assessment and Plan (1) Paroxysmal atrial fibrillation with rapid ventricular response Current Visit: Yes Status: Acute Code(s): I48.0 - PAROXYSMAL ATRIAL FIBRILLATION SNOMED Code(s): 273481901 (2) Bilateral pneumonia Narrative/Plan: 58-year-old female presents to hospital with a several-day history of increasing illness this is high-grade fever chills or malaise and cough without much sputum production. There is evidence of pneumonia minimally by chest x-ray the patient was remaining very ill with fevers of 103 despite antibiotic therapy. A consult was requested and at that time antibiotic therapy was altered to cover for gram negatives including Pseudomonas as well as resistant gram-positive pathogen such as MRSA and vancomycin was added. For fever Toradol was added given the normal renal function and there is no evidence of improvement of how the patient is feeling with this. Fevers have trended to improvement. Will allow further doses of Toradol Renal function to be followed The patient is requiring oxygen therapy and this is being monitored also. Blood glucoses are being monitored. Leukocytosis is trending to improvement Diarrhea did occur and C. diff testing was negative. Lomotil be requested to improve some diarrhea patient encouraged to utilize yogurt with meals. 10/17/2018 is noted the patient had acute worsening of her status with recurrent fever to 103 with the development of atrial fibrillation with rapid ventricular response and transferred to intensive care unit. She's been seen by pulmonary critical care. If there is no further improvement will consider bronchoscopy. Her fever has now resolved and she feels just minimally better. Does complain of a significant oral discomfort cool solution requested 10/18/2018 he shouldn't is improved today. She is less short of breath. The subdural discomfort is improved and has done well with the cool solution. She is eating today. There is no further fever or chills Pruritic chest discomforts have improved She is starting to mobilize some secretions which has helped her shortness of breath. Appetite poor but she is eating without difficulty Continue current antibiotic therapy, no plans for bronchoscopy at this time 10/19/2018 patient has had some further improvement. She is less short of blessing th. She is on less oxygen. She's having no further fevers. Mobilizing secretions better. Appetite is adequate. Leukocytosis is improving. She had an increase of her creatinine to 1.15 and ketorolac has been discontinued. Vancomycin levels being monitored closely regarding the treatment of her extensive pneumonia. Current Visit: Yes Status: Acute Code(s): J18.9 - PNEUMONIA, UNSPECIFIED ORGANISM SNOMED Code(s): 032027911 (3) Fever Current Visit: Yes Status: Acute Code(s): R50.9 - FEVER, UNSPECIFIED SNOMED Code(s): 847502596 (4) Leukocytosis Current Visit: Yes Status: Acute Code(s): D72.829 - ELEVATED WHITE BLOOD CELL COUNT, UNSPECIFIED SNOMED Code(s): 138098101
[2018-10-19] MEDS: IPRATROPIUM-ALBUTEROL 3 ML NEB INHALATION PRN (23:09)
[2018-10-19] MEDS ORDERED: FUROSEMIDE 10 MG/ML 4 ML VIAL IV STA (23:12)
[2018-10-19 23:13] LABS: Glucose,Whole Blood 217 mg/dL (75-99)
--- NOTE | 2018-10-19 23:39 | XR ---
EXAM: XR Chest, 1 View CLINICAL HISTORY: Shortness of breath TECHNIQUE: Frontal view of the chest. COMPARISON: Chest x-ray dated 10/18/2018 FINDINGS: Lungs: Diffuse airspace opacities which may represent pulmonary vascular congestion. Pleural space: Moderate to large bilateral pleural effusions. No pneumothorax. Heart: Heart is enlarged. Mediastinum: Unremarkable. Bones/joints: Unremarkable. IMPRESSION: 1. Diffuse airspace opacities which may represent pulmonary vascular congestion. 2. Moderate to large bilateral pleural effusions.
[2018-10-19] MEDS: PROPOFOL 1,000 MG in EMPTY BAG 1 BAG IV SCH (23:45)
[2018-10-20] MEDS ORDERED: CHLORHEXIDINE GLUCONATE 15 ML CUP MUCOUS MEM ONE (00:10)
[2018-10-20 00:27] LABS: ABG Base Excess -4.3 mmol/L; ABG HCO3 24 mmol/L (21-25); ABG Oxygen Saturation 99.4 % (94-97); ABG PCO2 67 mmHg (35-45); ABG PO2 268 mmHg (83-108); ABG TCO2 26 mmol/L (19-24); Allen Test Performed? Yes
[2018-10-20 00:30] LABS: ABG PH 7.17 (7.35-7.45)
--- NOTE | 2018-10-20 01:18 | XR ---
EXAM: XR Chest, 1 View CLINICAL HISTORY: Status post intubation TECHNIQUE: Frontal view of the chest. COMPARISON: No relevant prior studies available. FINDINGS: Lungs: Diffuse airspace opacities which may represent pulmonary vascular congestion. Pleural space: Bilateral pleural effusions, right greater than left. No pneumothorax. Heart: Unremarkable. No cardiomegaly. Mediastinum: Unremarkable. Bones/joints: Unremarkable. Tubes, lines and devices: Endotracheal tube within the thoracic inlet terminating 3 cm above the eliud. Enteric tube is seen coursing in the stomach. IMPRESSION: 1. Endotracheal tube within the thoracic inlet terminating 3 cm above the eliud. 2. Enteric tube is seen coursing in the stomach. 3. Diffuse airspace opacities which may represent pulmonary vascular congestion. 4. Bilateral pleural effusions, right greater than left.
[2018-10-20 01:58] LABS: Amorphous Sediment,Urine Occasional /hpf; Appearance,Urine Cloudy (Clear); Bilirubin,Urine Negative (Negative); Blood,Urine Small (Negative); Color,Urine Light Yellow; Glucose,Urine (UA) Negative (Negative); Ketones,Urine Negative (Negative); Leukocyte Esterase,Urine Negative (Negative); Mucus,Urine Rare /hpf; Nitrite,Urine Negative (Negative); PH, Urine 5.5 (5.0-8.0); Protein,Urine 1+ (Negative); RBC,Urine 3 /hpf (0-5); Specific Gravity,Urine 1.011 (1.001-1.035); Squamous Epithelial Cell,Urine <1 /hpf (0-4); Urobilinogen,Urine <2.0 mg/dL (<2.0)
[2018-10-20] MEDS: NOREPINEPHRINE 4 MG in SODIUM CHLORIDE 0.9% 250 ML IV SCH ×3 (02:45→18:54)
[2018-10-20] MEDS: IPRATROPIUM-ALBUTEROL 3 ML NEB INHALATION PRN ×2 (03:28→23:46)
--- NOTE | 2018-10-20 03:31 | CT ---
EXAM: CT Head Without Intravenous Contrast CLINICAL HISTORY: Neuro status change TECHNIQUE: Axial computed tomography images of the head/brain without intravenous contrast. CTDI is 0.085, 0.085, 49.1 mGy and DLP is 1064.4 mGy-cm. This CT exam was performed using one or more of the following dose reduction techniques: automated exposure control, adjustment of the mA and/or kV according to patient size, and/or use of iterative reconstruction technique. COMPARISON: No relevant prior studies available. FINDINGS: Brain: No acute infarct, hemorrhage, mass or edema. No significant white matter disease. Ventricles: Unremarkable. No ventriculomegaly. Bones/joints: Unremarkable. No acute fracture. Soft tissues: Unremarkable. Sinuses: Minimal mucosal thickening in the paranasal sinuses. Mastoid air cells: Unremarkable as visualized. No mastoid effusion. IMPRESSION: No acute findings.
[2018-10-20] MEDS: PIPERACILLIN-TAZOBACTAM 3.375 GM in SODIUM CHLORIDE 0.9% 100 ML IVPB SCH ×3 (05:34→20:09)
[2018-10-20] MEDS: PROPOFOL 1,000 MG in EMPTY BAG 1 BAG IV SCH ×4 (05:34→20:25)
[2018-10-20 06:18] LABS: HCT 37.1 % (34.0-46.0); HGB 12.1 gm/dL (11.4-16.0); Hypochromasia Slight; MCH 29.9 pg (25.0-35.0); MCHC 32.7 g/dL (31.0-37.0); MCV 91.4 fL (80.0-100.0); Mean Platelet Volume 7.8; Platelet Count 325 k/uL (150-450); RBC 4.06 m/uL (3.80-5.40); RDW 14.7 % (11.5-15.5); WBC 11.9 k/uL (3.8-10.6)
[2018-10-20 06:31] LABS: Albumin 2.7 g/dL (3.5-5.0); Calcium 7.7 mg/dL (8.4-10.2); Potassium 4.9 mmol/L (3.5-5.1); Total Bilirubin 0.5 mg/dL (0.2-1.3)
[2018-10-20] MEDS: IPRATROPIUM-ALBUTEROL 3 ML NEB INHALATION SCH ×4 (07:28→20:01)
[2018-10-20] MEDS: SYMBICORT 80-4.5 MCG INHALER INHALATION SCH ×2 (07:28→20:02)
[2018-10-20 07:53] LABS: ABG Base Excess 0.2 mmol/L; ABG HCO3 26 mmol/L (21-25); ABG Oxygen Saturation 95.4 % (94-97); ABG PCO2 44 mmHg (35-45); ABG PH 7.37 (7.35-7.45); ABG PO2 75 mmHg (83-108); ABG TCO2 27 mmol/L (19-24); Allen Test Performed? Yes
[2018-10-20] MEDS: CHLORHEXIDINE GLUCONATE 15 ML CUP MUCOUS MEM SCH ×2 (08:31→20:08)
[2018-10-20] MEDS: predniSONE 20 MG TAB PO SCH (08:31)
[2018-10-20] MEDS: MAGNESIUM OXIDE 400 MG TAB PO SCH (08:32)
[2018-10-20] MEDS: METOPROLOL TARTRATE 25 MG TAB PO SCH ×2 (08:32→20:09)
[2018-10-20] MEDS: APIXABAN 5 MG TAB PO SCH ×2 (08:32→20:09)
[2018-10-20] MEDS: VANCOMYCIN 1,750 MG in SODIUM CHLORIDE 0.9% 500 ML 500 ML IVPB SCH ×2 (08:32→09:58)
[2018-10-20] MEDS: FUROSEMIDE 10 MG/ML 4 ML VIAL IV SCH (08:32)
[2018-10-20] MEDS: PANTOPRAZOLE 40 MG TABLET PO SCH (08:32)
[2018-10-20] MEDS: POTASSIUM BICARBONATE/CIT AC 20 MEQ TABLET.EFF PO SCH (08:32)
[2018-10-20] MEDS: AMIODARONE 200 MG TAB PO SCH ×2 (08:32→20:09)
[2018-10-20] MEDS: MAG HYDROX/AL HYDROX/SIMETH 30 ML, LIDOCAINE VISCOUS 30 ML, NYSTATIN 100,000 UNIT/ML SU... PO SCH ×12 (08:33→21:35)
[2018-10-20] MEDS ORDERED: SODIUM CHLORIDE 0.9% 500 ML 500 ML IV ONE (09:20)
--- NOTE | 2018-10-20 09:25 | P.PN ---
Subjective Progress Note Date: 10/20/18 This 58-year-old female has a recurrence of atrial fibrillation but rate seems to be controlled. Patient is on IV Cardizem and also metoprolol. I'm going to discontinue IV Cardizem and start her on IV amiodarone with the hope of maintaining sinus rhythm. Patient otherwise denies any chest pain. Continues to have shortness of breath and cough. Being treated for pneumonia. Further recommendations depend upon clinical course. 10/19/2018: This patient is still in atrial fibrillation with controlled ventricular response Being continued for with antibiotic therapy for pneumonia. Patient developed edema of the legs and is being treated with IV Lasix. 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 Patient will continue with amiodarone as an outpatient. Follow-up in the office in one week after discharge. 10/20/2018: This patient developed respiratory difficulties and developed acidosis and hypercapnia. Patient needed intubation. Patient was also given some IV Lasix. She is on antibiotics for pneumonia. Her chest x-ray shows bilateral consolidation. Being seen by infectious disease specialist. She is back in sinus rhythm. Her echo showed normal LV function. We'll continue with current medical therapy. Objective - Vital Signs Vital signs: Vital Signs Temp 96.8 F L 10/20/18 04:00 Pulse 71 10/20/18 07:53 Resp 20 10/20/18 06:00 BP 104/62 10/20/18 06:00 Pulse Ox 95 10/20/18 06:00 Intake & Output 10/19/18 10/20/18 10/20/18 18:59 06:59 18:59 Intake Total 1300 523.538 Output Total 1925 1050 Balance -625 -526.462 Weight 97.5 kg Intake: IV 320 370 Piperacillin-Tazobactam 3 100 150 .375 gm In Sodium Chloride 0.9% 100 ml @ 25 mls/hr IVPB Q8H [facility] Rx#: [id number] Sodium Chloride 0.9% 1, 220 220 000 ml @ 20 mls/hr IV . Q24H [facility] Rx#:[id number] Intake, IV Titration 500 153.538 Amount Norepinephrine 4 mg In 53.547 Sodium Chloride 0.9% 250 ml @ 0.05 MCG/KG/MIN 17. 869 mls/hr IV .[id number] [facility] Rx#:[id number] Propofol 1,000 mg In 99.991 Empty Bag 1 bag @ Titrate IV .Q0M [facility] Rx#: [id number] Vancomycin 1,750 mg In 500 Sodium Chloride 0.9% 500 ml 500 ml @ 166.667 mls/ hr IVPB Q24H [facility] Rx#: [id number] Oral 480 Output: Urine 1925 1050 Other: Voiding Method Bedside Commode Indwelling Catheter # Bowel Movements 1 - Exam GENERAL EXAM: Patient is intubated and sedated HEENT: Normocephalic. Normal reaction of pupils, equal size, normal range of extraocular motion. No erythema or exudates in the throat. NECK: No masses, no nuchal rigidity. CHEST: No chest wall deformity. LUNGS: Diminished air entry HEART: S1 and S2 normal with no audible mumurs or gallops. Regular rhythm, femorals equal on both sides.. ABDOMEN: No hepatosplenomegaly, normal bowel sounds, no guarding or rigidity. SKIN: No rashes CENTRAL NERVOUS SYSTEM: No focal deficits. EXTREMITIES: No cyanosis, clubbing or edema. - Labs CBC & Chem 7: 10/20/18 05:58 10/20/18 06:04 Labs: Abnormal Lab Results - Last 24 Hours (Table) 10/19/18 10/19/18 10/19/18 Range/Units 11:49 17:03 20:37 WBC (3.8-10.6) k/uL ABG pH (7.35-7.45) ABG pCO2 (35-45) mmHg ABG pO2 (83-108) mmHg ABG HCO3 (21-25) mmol/L ABG Total CO2 (19-24) mmol/L ABG O2 Saturation (94-97) % Sodium (137-145) mmol/L Chloride (98-107) mmol/L Carbon Dioxide (22-30) mmol/L BUN (7-17) mg/dL Creatinine (0.52-1.04) mg/dL Glucose (74-99) mg/dL POC Glucose (mg/dL) 109 H 220 H 198 H (75-99) mg/dL Calcium (8.4-10.2) mg/dL AST (14-36) U/L ALT (9-52) U/L Total Protein (6.3-8.2) g/dL Albumin (3.5-5.0) g/dL Urine Appearance (Clear) Urine Protein (Negative) Urine Blood (Negative) Amorphous Sediment (None) /hpf Urine Mucus (None) /hpf 10/19/18 10/20/18 10/20/18 Range/Units 23:11 00:25 01:00 WBC (3.8-10.6) k/uL ABG pH 7.17 L* (7.35-7.45) ABG pCO2 67 H (35-45) mmHg ABG pO2 268 H (83-108) mmHg ABG HCO3 (21-25) mmol/L ABG Total CO2 26 H (19-24) mmol/L ABG O2 Saturation 99.4 H (94-97) % Sodium (137-145) mmol/L Chloride (98-107) mmol/L Carbon Dioxide (22-30) mmol/L BUN (7-17) mg/dL Creatinine (0.52-1.04) mg/dL Glucose (74-99) mg/dL POC Glucose (mg/dL) 217 H (75-99) mg/dL Calcium (8.4-10.2) mg/dL AST (14-36) U/L ALT (9-52) U/L Total Protein (6.3-8.2) g/dL Albumin (3.5-5.0) g/dL Urine Appearance Cloudy H (Clear) Urine Protein 1+ H (Negative) Urine Blood Small H (Negative) Amorphous Sediment Occasional H (None) /hpf Urine Mucus Rare H (None) /hpf 10/20/18 10/20/18 10/20/18 Range/Units 05:58 06:04 07:26 WBC 11.9 H (3.8-10.6) k/uL ABG pH (7.35-7.45) ABG pCO2 (35-45) mmHg ABG pO2 75 L (83-108) mmHg ABG HCO3 26 H (21-25) mmol/L ABG Total CO2 27 H (19-24) mmol/L ABG O2 Saturation (94-97) % Sodium 135 L (137-145) mmol/L Chloride 108 H (98-107) mmol/L Carbon Dioxide 20 L (22-30) mmol/L BUN 31 H (7-17) mg/dL Creatinine 1.51 H (0.52-1.04) mg/dL Glucose 165 H (74-99) mg/dL POC Glucose (mg/dL) (75-99) mg/dL Calcium 7.7 L (8.4-10.2) mg/dL AST 69 H (14-36) U/L ALT 55 H (9-52) U/L Total Protein 5.0 L (6.3-8.2) g/dL Albumin 2.7 L (3.5-5.0) g/dL Urine Appearance (Clear) Urine Protein (Negative) Urine Blood (Negative) Amorphous Sediment (None) /hpf Urine Mucus (None) /hpf Microbiology - Last 24 Hours (Table) 10/13/18 23:47 Blood Culture - Final Blood No Growth after 144 hours Assessment and Plan (1) Essential hypertension Current Visit: Yes Status: Acute Code(s): I10 - ESSENTIAL (PRIMARY) HYPERTENSION SNOMED Code(s): 18802729 (2) Bilateral pneumonia Current Visit: Yes Status: Acute Code(s): J18.9 - PNEUMONIA, UNSPECIFIED ORGANISM SNOMED Code(s): 086218784 (3) Paroxysmal atrial fibrillation with rapid ventricular response Current Visit: Yes Status: Acute Code(s): I48.0 - PAROXYSMAL ATRIAL F IBRILLATION SNOMED Code(s): 402147678 (4) Sepsis Current Visit: Yes Status: Acute Code(s): A41.9 - SEPSIS, UNSPECIFIED ORGANISM SNOMED Code(s): 41712169 Plan: Patient downward. Acute respiratory failure, Yesterday. Patient is on ventilator. Patient is back in sinus rhythm. Her echo showed good LV function. We'll continue current medical therapy.
--- NOTE | 2018-10-20 09:45 | P.PN ---
Subjective Patient is seen in follow-up for acute kidney injury. Baseline creatinine is near 1. It is up to 1.55 today. Yesterday the patient went into Hypercapnic respiratory failure and was subsequently intubated. She was also quite hypotensive and is currently maintained on 9 mics of Levophed. She also received 1 dose of IV Lasix last night. This morning she was receiving a 500 mL bolus of normal saline. She is nonoliguric. Currently being treated for pneumonia. Vital signs are stable. General: The patient appeared well nourished and normally developed. HEENT: Head exam is unremarkable. Neck is without jugular venous distension. Intubated. LUNGS: Breath sounds decreased. HEART: Rate and Rhythm are regular. First and second heart sounds normal. No murmurs, rubs or gallops. ABDOMEN: Abdominal exam reveals normal bowel sounds. Non-tender. EXTREMITITES: Trace edema. Objective - Vital Signs Vital signs: Vital Signs Temp 96.8 F L 10/20/18 04:00 Pulse 71 10/20/18 07:53 Resp 20 10/20/18 06:00 BP 104/62 10/20/18 06:00 Pulse Ox 95 10/20/18 06:00 Intake & Output 10/19/18 10/20/18 10/20/18 18:59 06:59 18:59 Intake Total 1300 523.538 Output Total 1925 1050 Balance -625 -526.462 Weight 97.5 kg Intake: IV 320 370 Piperacillin-Tazobactam 3 100 150 .375 gm In Sodium Chloride 0.9% 100 ml @ 25 mls/hr IVPB Q8H [facility] Rx#: [id number] Sodium Chloride 0.9% 1, 220 220 000 ml @ 20 mls/hr IV . Q24H [facility] Rx#:[id number] Intake, IV Titration 500 153.538 Amount Norepinephrine 4 mg In 53.547 Sodium Chloride 0.9% 250 ml @ 0.05 MCG/KG/MIN 17. 869 mls/hr IV .[id number] [facility] Rx#:[id number] Propofol 1,000 mg In 99.991 Empty Bag 1 bag @ Titrate IV .Q0M [facility] Rx#: [id number] Vancomycin 1,750 mg In 500 Sodium Chloride 0.9% 500 ml 500 ml @ 166.667 mls/ hr IVPB Q24H [facility] Rx#: [id number] Oral 480 Output: Urine 1925 1050 Other: Voiding Method Bedside Commode Indwelling Catheter # Bowel Movements 1 - Labs CBC & Chem 7: 10/20/18 05:58 10/20/18 06:04 Labs: Abnormal Lab Results - Last 24 Hours (Table) 10/19/18 10/19/18 10/19/18 Range/Units 11:49 17:03 20:37 WBC (3.8-10.6) k/uL ABG pH (7.35-7.45) ABG pCO2 (35-45) mmHg ABG pO2 (83-108) mmHg ABG HCO3 (21-25) mmol/L ABG Total CO2 (19-24) mmol/L ABG O2 Saturation (94-97) % Sodium (137-145) mmol/L Chloride (98-107) mmol/L Carbon Dioxide (22-30) mmol/L BUN (7-17) mg/dL Creatinine (0.52-1.04) mg/dL Glucose (74-99) mg/dL POC Glucose (mg/dL) 109 H 220 H 198 H (75-99) mg/dL Calcium (8.4-10.2) mg/dL AST (14-36) U/L ALT (9-52) U/L Total Protein (6.3-8.2) g/dL Albumin (3.5-5.0) g/dL Urine Appearance (Clear) Urine Protein (Negative) Urine Blood (Negative) Amorphous Sediment (None) /hpf Urine Mucus (None) /hpf 10/19/18 10/20/18 10/20/18 Range/Units 23:11 00:25 01:00 WBC (3.8-10.6) k/uL ABG pH 7.17 L* (7.35-7.45) ABG pCO2 67 H (35-45) mmHg ABG pO2 268 H (83-108) mmHg ABG HCO3 (21-25) mmol/L ABG Total CO2 26 H (19-24) mmol/L ABG O2 Saturation 99.4 H (94-97) % Sodium (137-145) mmol/L Chloride (98-107) mmol/L Carbon Dioxide (22-30) mmol/L BUN (7-17) mg/dL Creatinine (0.52-1.04) mg/dL Glucose (74-99) mg/dL POC Glucose (mg/dL) 217 H (75-99) mg/dL Calcium (8.4-10.2) mg/dL AST (14-36) U/L ALT (9-52) U/L Total Protein (6.3-8.2) g/dL Albumin (3.5-5.0) g/dL Urine Appearance Cloudy H (Clear) Urine Protein 1+ H (Negative) Urine Blood Small H (Negative) Amorphous Sediment Occasional H (None) /hpf Urine Mucus Rare H (None) /hpf 10/20/18 10/20/18 10/20/18 Range/Units 05:58 06:04 07:26 WBC 11.9 H (3.8-10.6) k/uL ABG pH (7.35-7.45) ABG pCO2 (35-45) mmHg ABG pO2 75 L (83-108) mmHg ABG HCO3 26 H (21-25) mmol/L ABG Total CO2 27 H (19-24) mmol/L ABG O2 Saturation (94-97) % Sodium 135 L (137-145) mmol/L Chloride 108 H (98-107) mmol/L Carbon Dioxide 20 L (22-30) mmol/L BUN 31 H (7-17) mg/dL Creatinine 1.51 H (0.52-1.04) mg/dL Glucose 165 H (74-99) mg/dL POC Glucose (mg/dL) (75-99) mg/dL Calcium 7.7 L (8.4-10.2) mg/dL AST 69 H (14-36) U/L ALT 55 H (9-52) U/L Total Protein 5.0 L (6.3-8.2) g/dL Albumin 2.7 L (3.5-5.0) g/dL Urine Appearance (Clear) Urine Protein (Negative) Urine Blood (Negative) Amorphous Sediment (None) /hpf Urine Mucus (None) /hpf Microbiology - Last 24 Hours (Table) 10/13/18 23:47 Blood Culture - Final Blood No Growth after 144 hours Assessment and Plan Plan: Assessment: 1. Acute kidney injury secondary to ATN secondary to hemodynamic instability, contrast-induced nephropathy and sepsis. Baseline creatinine 1. It is 1.51 today. Trace proteinuria noted on UA. 2. Mild volume overload. Better. 3. Septic shock secondary to pneumonia maintained on antibiotics. Currently on 9 mics of Levophed. 4. A. fib with RVR. Currently rate controlled. Maintain on oral amiodarone and Lopressor. Also on anticoagulation. Cardiology following. 5. Insulin-dependent diabetes mellitus. 6. Acute hypercapnic respiratory failure. 7. Metabolic acidosis secondary to acute kidney injury. Plan: Hold off on diuretics. Patient will be started on normal saline at 75 mL an hour. Avoid nephrotoxins. Discontinued Toradol. Continue to monitor renal function and urine output. Monitor vancomycin levels. Dose to be adjusted for renal function. Follow-up cultures.
[2018-10-20] MEDS ORDERED: VANCOMYCIN IV PER PHARMACY 1 EACH MISC MISCELLANE PRN (09:58)
--- NOTE | 2018-10-20 10:30 | P.PN ---
Subjective 58-year-old female admitted for pneumonia in the right lower lung ortega therapy to the chest x-ray today with right showing infiltrate in both lung lower lobes and a prominent fissure. Patient still febrile patient can use to be on Rocephin and azithromycin Lisa consulting infectious disease, patient's is still fatigued and malaise is in distress because of fatigue and sepsis. Continues to have high-grade fever. I'll obtain a BNP and echocardiogram as well because of bilateral lower infiltrates the possibility of effusion and a prominent fissure. He should and lungs are clear to auscultation but has saturations of 92%. Patient may require a CAT scan of the chest and pulmonary consultation. 10/16/2018 Patient looks much better today feels better today. Patient CAT scan of the chest which showed significant consolidation of the right middle lobe and by lateral lower lobes most probably pneumonia patient was evaluated pulmonary and infectious disease patient was started on the Lasix empirically by pulmonology. Patient's sister Zosyn and vancomycin by infectious disease. 10/17/2018 Patient had worsening in her clinical status as today requiring high amounts of causes started wheezing patient was started on systemic steroids transferred to ICU. Patient is hyponatremic no evidence of for heart failure exacerbation at this time patient was started on IV fluids again. Although her fever has gotten better yesterday it was very high. Patient looks better because of resolution of fever and systemic inflammatory response. Sputum cultures are not available which will be ordered. Patient went into A. fib and patient is requiring amiodarone drip at this time. 10/18/2018 pt is seen in the ICU, she presents with sepsis secondary to Bilateral pneumonia, pt is also treated for possible acute copd exacerbation ,pt is alr halle on antibiotic and steroids, today chest us showing no fluid collection , no need for thoracocentasis, hypodermically stable she is saturation 98% on 8 L oxygen via high flow oxygen. her wbc 13K. Na 133 today 10/19/2018 Patient in the ICU, was drowsy could be part of her acute delirium from her sepsis. However she is answering questions appropriately. She still LIMITS of dyspnea and she has bilateral basal crepitation. Lasix was continue with by pulmonary team recommendation. Patient is hemodynamically stable however she is a little bit tachypneic. She still on 6 L oxygen high flow with oxygen saturating at 95%. Labs reviewed, CBC is unremarkable. Creatinine is increased from 0.7 up to 1.1, nephrology team has been consulted. Patient remains on vancomycin as per infectious disease recommendation with pharmacy to dose. Also she is on Zosyn. 10/20/2018 Last night patient developed acute hypercapnic respiratory failure, patient got intubated and she was started on Levophed for hypotension, mostly related to her septic shock. Patient is currently on mechanical ventilation and she is sedated. Systolic blood pressure is 90s. Doubt shows trending up creatinine to 1.5. Nephrology input is appreciated. he Recommended to hold vancomycin and check level. WBC is 11.9 K. Sodium 135, patient has been followed by critical care team as well. Infectious disease also evaluated the patient. Review of systems: Not applicable Medication: Tylenol 650 mg, albuterol 0.5 mg , Eliquis 5 mg, amiodarone 200 mg, Zithromax 500 mg, Symbicort 80-4.5 g, Lomotil 1 tablet each, Lasix 40 mg, insulin as part as per scale, Levemir insulin 30 units, magnesium oxide 400 mg, Lopressor 25 mg, Singulair 10 mg, Protonix 40 mg, Zosyn 3.375 mg, is on 40 mg, Zoloft physical exam, Objective - Vital Signs Vital signs: Vital Signs Temp 96.8 F L 10/20/18 04:00 Pulse 71 10/20/18 07:53 Resp 20 10/20/18 06:00 BP 104/62 10/20/18 06:00 Pulse Ox 95 10/20/18 06:00 Intake & Output 10/19/18 10/20/18 10/20/18 18:59 06:59 18:59 Intake Total 1300 523.538 312.330 Output Total 1925 1050 Balance -625 -526.462 312.330 Weight 97.5 kg Intake: IV 320 370 Piperacillin-Tazobactam 3 100 150 .375 gm In Sodium Chloride 0.9% 100 ml @ 25 mls/hr IVPB Q8H [facility] Rx#: [id number] Sodium Chloride 0.9% 1, 220 220 000 ml @ 20 mls/hr IV . Q24H [facility] Rx#:[id number] Intake, IV Titration 500 153.538 312.330 Amount Norepinephrine 4 mg In 53.547 212.902 Sodium Chloride 0.9% 250 ml @ 0.05 MCG/KG/MIN 17. 869 mls/hr IV .[id number] [facility] Rx#:[id number] Propofol 1,000 mg In 99.991 99.428 Empty Bag 1 bag @ Titrate IV .Q0M [facility] Rx#: [id number] Vancomycin 1,750 mg In 500 Sodium Chloride 0.9% 500 ml 500 ml @ 166.667 mls/ hr IVPB Q24H [facility] Rx#: [id number] Oral 480 Output: Urine 1925 1050 Other: Voiding Method Bedside Commode Indwelling Catheter # Bowel Movements 1 - Exam GENERAL: The patient is alert and oriented x3, not in acute distress. He is on 12 L of high flow numbness cannula oxygen HEENT: Pupils are round and equally reacting to light. EOMI. No scleral icterus. No conjunctival pallor. Normocephalic, atraumatic. No pharyngeal erythema. No thyromegaly. CARDIOVASCULAR: S1 and S2 present. No murmurs, rubs, or gallops. -PULMONARY: Chest is clear to auscultation, no wheezing or crackles. Breath sounds are absent in bilateral lower lung bases. Bilateral basal crepitation ABDOMEN: Soft, nontender, nondistended, normoactive bowel sounds. No palpable organomegaly. MUSCULOSKELETAL: No joint swelling or deformity. EXTREMITIES: No cyanosis, clubbing, or pedal edema. NEUROLOGICAL: Gross neurological examination did not reveal any focal deficits. SKIN: No rashes. - Labs CBC & Chem 7: 10/20/18 05:58 10/20/18 06:04 Labs: Abnormal Lab Results - Last 24 Hours (Table) 10/19/18 10/19/18 10/19/18 Range/Units 11:49 17:03 20:37 WBC (3.8-10.6) k/uL ABG pH (7.35-7.45) ABG pCO2 (35-45) mmHg ABG pO2 (83-108) mmHg ABG HCO3 (21-25) mmol/L ABG Total CO2 (19-24) mmol/L ABG O2 Saturation (94-97) % Sodium (137-145) mmol/L Chloride (98-107) mmol/L Carbon Dioxide (22-30) mmol/L BUN (7-17) mg/dL Creatinine (0.52-1.04) mg/dL Glucose (74-99) mg/dL POC Glucose (mg/dL) 109 H 220 H 198 H (75-99) mg/dL Calcium (8.4-10.2) mg/dL AST (14-36) U/L ALT (9-52) U/L Total Protein (6.3-8.2) g/dL Albumin (3.5-5.0) g/dL Urine Appearance (Clear) Urine Protein (Negative) Urine Blood (Negative) Amorphous Sediment (None) /hpf Urine Mucus (None) /hpf 10/19/18 10/20/18 10/20/18 Range/Units 23:11 00:25 01:00 WBC (3.8-10.6) k/uL ABG pH 7.17 L* (7.35-7.45) ABG pCO2 67 H (35-45) mmHg ABG pO2 268 H (83-108) mmHg ABG HCO3 (21-25) mmol/L ABG Total CO2 26 H (19-24) mmol/L ABG O2 Saturation 99.4 H (94-97) % Sodium (137-145) mmol/L Chloride (98-107) mmol/L Carbon Dioxide (22-30) mmol/L BUN (7-17) mg/dL Creatinine (0.52-1.04) mg/dL Glucose (74-99) mg/dL POC Glucose (mg/dL) 217 H (75-99) mg/dL Calcium (8.4-10.2) mg/dL AST (14-36) U/L ALT (9-52) U/L Total Protein (6.3-8.2) g/dL Albumin (3.5-5.0) g/dL Urine Appearance Cloudy H (Clear) Urine Protein 1+ H (Negative) Urine Blood Small H (Negative) Amorphous Sediment Occasional H (None) /hpf Urine Mucus Rare H (None) /hpf 10/20/18 10/20/18 10/20/18 Range/Units 05:58 06:04 07:26 WBC 11.9 H (3.8-10.6) k/uL ABG pH (7.35-7.45) ABG pCO2 (35-45) mmHg ABG pO2 75 L (83-108) mmHg ABG HCO3 26 H (21-25) mmol/L ABG Total CO2 27 H (19-24) mmol/L ABG O2 Saturation (94-97) % Sodium 135 L (137-145) mmol/L Chloride 108 H (98-107) mmol/L Carbon Dioxide 20 L (22-30) mmol/L BUN 31 H (7-17) mg/dL Creatinine 1.51 H (0.52-1.04) mg/dL Glucose 165 H (74-99) mg/dL POC Glucose (mg/dL) (75-99) mg/dL Calcium 7.7 L (8.4-10.2) mg/dL AST 69 H (14-36) U/L ALT 55 H (9-52) U/L Total Protein 5.0 L (6.3-8.2) g/dL Albumin 2.7 L (3.5-5.0) g/dL Urine Appearance (Clear) Urine Protein (Negative) Urine Blood (Negative) Amorphous Sediment (None) /hpf Urine Mucus (None) /hpf Microbiology - Last 24 Hours (Table) 10/18/18 08:20 Gram Stain - Final Sputum Sputum Culture - Final Aminta albicans 10/13/18 23:47 Blood Culture - Final Blood No Growth after 144 hours Assessment and Plan Assessment: Plan: -Severe sepsis progressed to septic shock: Secondary to right lower lobe pneumonia possibly community-acquired pneumonia since there is no improvement in improvement with significant worsening to bilateral lower lobes of the chest. Patient was switched to vancomycin (on hold) and Zosyn by infectious disease CAT scan of the chest as mentioned above awaiting blood cultures and sputum cultures which are so far negative. -acute kidney injury , nephrology consult is appreciated, hold toradol and vancomycin . monitor creatinine -Acute hypoxic hypercapnic respiratory failure secondary to pneumonia and COPD exacerbation patient was started on systemic steroids and inhalational treatments. Patient indicated intubation and mechanical ventilation. Managed by pulmonary team -Toxic encephalopathy and delirium secondary to sepsis patient .improved -Shortness of breath secondary to sepsis and pneumonia. Patient's BNP is 250 -Hyponatremia hypovolemic hyponatremia and secondary to sepsis patient was s tarted on IV fluids again is, improving -Type 2 diabetes mellitus, patient will be continued on present regimen. Patient's hemoglobin A1c is 8.0 -Hyperlipidemia -Lactic is doses seconded to sepsis metformin was discontinued, lactic is doses improved -Hypertension hold off on lisinopril because of sepsis and low blood pressure concerns -Possible history of COPD although with acute exacerbation -Episode of A. fib proximal probably proximal A. fib patient presently is in rapid ventricular rate was started back on amiodarone Family at bedside and were updated
--- NOTE | 2018-10-20 11:09 | XR ---
EXAMINATION TYPE: XR chest 1V portable DATE OF EXAM: 10/20/2018 COMPARISON: Prior chest x-ray 10/20/2018 and earlier time HISTORY: Intubated TECHNIQUE: Single frontal view of the chest is obtained. FINDINGS: Endotracheal tube, orogastric tube are overlying appropriate positions. Bibasilar density persists. No evident pneumothorax. Patient is rotated. Heart is obscured but likely enlarged. IMPRESSION: There may be bibasilar effusions and associated atelectasis or congestive heart failure with edema, correlate to exclude pneumonia.
--- NOTE | 2018-10-20 11:44 | P.PN ---
Subjective Progress Note Date: 10/20/18 Principal diagnosis: Acute hypoxic respiratory failure secondary to extensive pneumonia involving both lungs this is a 58-year-old femalewith history of diabetes, nonsmoker, patient presented to the ER on 10/13/2018,and she was complaining mostly of feeling sick, complaining of intermittent episodes of nausea and vomiting. Patient was also noted to be delirious and confused and she was noted to have fever and leukocytosis. Chest x-ray and CT of the chest showed a right lower lobe and right middle lobe. Consolidation. It also showed some partial atelectasis in the inferior lingula and a left lower lobe.patient was also noted to have high- grade fever with leukocytosis and she was noted to have intermittent episodes of atrial fibrillation with RVR. Treated with Cardizem, seen by cardiology on consultation, and the patient was noted to have worsening hypoxia and her oxygen requirement was getting more and more since admission, has the patient was transferred yesterday to the intensive care unit, and we were asked to see her on consultation. Patient denies any significant pulmonary symptoms during my evaluation, denies even being short of breath, denies any cough, and she denies any wheezing.she was already seen by Dr. Juares on consultation, and she was started empirically on antibiotics includingZosyn and vancomycin.patient remains on IV Cardizem, and she is also on metoprolol. However when she was seen by cardiology today, plan was to start the patient on amiodarone and discontinue Cardizem. Patient was reevaluated today in the ICU on 10/18/2018, remains on a high flow nasal cannula at 10 L/m, O2 saturation is definitely improving compared to yes terday. Her O2 saturation is 97% today. Remains on amiodarone, drip at present, chest x-ray today however is showing improvement in overall aeration, but there is a new right-sided pleural effusion associated with atelectasis. Improved aeration noted in the left lung base. Hence we will likely consider ultrasound of the chest, and proceed to thoracentesis in the effusion isn't large enough to be drained to improve her oxygenation further. At the same time the thoracentesis will be diagnostic as well as therapeutic. Labs from today were all reviewed. Blood cultures are negative since admission. Patient herself seems to be quite comfortable, feeling better overall. Breathing a lot easier. Reevaluated today on 10/19/2018, patient is feeling better from the pulmonary perspective, however she is complaining of generalized weakness, and swelling in her lower extremities. She is now on oral amiodarone, off IV amiodarone. Her atrial fibrillation seems to be well controlled, and her O2 saturation is 95% on 5 L nasal cannula. Electrolytes are relatively normal except for elevated c reatinine of 1.15 today, hemoglobin is 8.5 hemoglobin is 11.7. No chest x-ray was done today, ultrasound of the chest failed to show significant right-sided pleural effusion to consider thoracentesis. Hence the findings are mostly findings of atelectasis in the right base. And the patient was advised to use more and more her incentive spirometer. And to do more deep coughing and deep breathing. Patient was reevaluated today on 10/20/2018. She is now on mechanical ventilation. Last night I was notified about this patient around midnight were and she was noted by the RN to have more shortness of breath, shallow breathing, tachypnea, and at one point she was struggling to breathe. Patient was also noted to be diaphoretic. At her mental status has changed. Patient was placed on BiPAP initially given a dose of Lasix, however she continued to go downhill. Then I recommended immediate intubation. And placement on mechanical ventilation. Follow-up chest x-ray showed worsening consolidation in the lower lobe especially in the right lower lobe and left lower lobe. Her ventilator s ettings today are tidal volume of 450 assist-control rate of 20 FiO2 of 50% and PEEP of 5. Patient is on propofol and she is also on norepinephrine at 9 mcg/m. ABG before intubation showed a pO2 of 268 pCO2 of 67 pH of 7.17 obviously that indicates hypercapnic respiratory failure. Her ABG this morning showed a pO2 of 75 pCO2 of 44 pH of 7.37. Her kidneys are showing slight worsening with creat inine up to 1.51. Electrolytes otherwise are normal. Patient is sedated and on propofol, chest x-ray was reviewed condition was discussed with her family at bedside. Also discussed with the offbearer sewer pipe on the case. Objective - Vital Signs Vital signs: Vital Signs Temp 98 F 10/20/18 08:00 Pulse 69 10/20/18 11:31 Resp 20 10/20/18 11:14 BP 90/52 10/20/18 11:00 Pulse Ox 96 10/20/18 11:00 Intake & Output 10/19/18 10/20/18 10/20/18 18:59 06:59 18:59 Intake Total 1300 523.538 987.330 Output Total 1925 1050 435 Balance -625 -526.462 552.330 Weight 97.5 kg Intake: IV 320 370 615 Piperacillin-Tazobactam 3 100 150 .375 gm In Sodium Chloride 0.9% 100 ml @ 25 mls/hr IVPB Q8H [facility] Rx#: [id number] Sodium Chloride 0.9% 1, 220 220 615 000 ml @ 75 mls/hr IV . [id number] [facility] Rx#:[id number] Intake, IV Titration 500 153.538 312.330 Amount Norepinephrine 4 mg In 53.547 212.902 Sodium Chloride 0.9% 250 ml @ 0.05 MCG/KG/MIN 17. 869 mls/hr IV .[id number] [facility] Rx#:[id number] Propofol 1,000 mg In 99.991 99.428 Empty Bag 1 bag @ Titrate IV .Q0M [facility] Rx#: [id number] Vancomycin 1,750 mg In 500 Sodium Chloride 0.9% 500 ml 500 ml @ 166.667 mls/ hr IVPB Q24H [facility] Rx#: [id number] Oral 480 60 Output: Urine 1925 1050 435 Other: Voiding Method Bedside Commode Indwelling Catheter Indwelling Catheter # Voids 1 # Bowel Movements 1 - Exam Physical Exam: Revealed a 58-year-old female on mechanical ventilation, sedated, on propofol drip. She is also on norepinephrine for low blood pressure. Head: Atraumatic, normocephalic. HEENT:[Neck is supple.] [No neck masses.] [No thyromegaly.] [No JVD.]PERRLA, EOMI, no icterus. Throat is clear, endotracheal tube and orogastric tube are intact. Chest: [Diminished breath sound bilaterally no crackles or rhonchi or wheezes.. Symmetrical chest expansion. No chest wall tenderness] Cardiac Exam: Normal S1 and S2, regular rate and rhythm, no S3 gallop, no murmur. Abdomen: [Soft, nontender, no megaly, no rebound, no guarding, normal bowel sounds.] Extremities: [No clubbing, 1+ bipedal edema., no cyanosis.] Neurological Exam: [Cannot be assessed, patient is sedated, on propofol, CT of the brain done last night showed no evidence of acute process. Psychiatric: Cannot be assessed. Skin: No rashes. Lymphatics: No lymphadenopathy. - Labs CBC & Chem 7: 10/20/18 05:58 10/20/18 06:04 Labs: Abnormal Lab Results - Last 24 Hours (Table) 10/19/18 10/19/18 10/19/18 Range/Units 11:49 17:03 20:37 WBC (3.8-10.6) k/uL ABG pH (7.35-7.45) ABG pCO2 (35-45) mmHg ABG pO2 (83-108) mmHg ABG HCO3 (21-25) mmol/L ABG Total CO2 (19-24) mmol/L ABG O2 Saturation (94-97) % Sodium (137-145) mmol/L Chloride (98-107) mmol/L Carbon Dioxide (22-30) mmol/L BUN (7-17) mg/dL Creatinine (0.52-1.04) mg/dL Glucose (74-99) mg/dL POC Glucose (mg/dL) 109 H 220 H 198 H (75-99) mg/dL Calcium (8.4-10.2) mg/dL AST (14-36) U/L ALT (9-52) U/L Total Protein (6.3-8.2) g/dL Albumin (3.5-5.0) g/dL Urine Appearance (Clear) Urine Protein (Negative) Urine Blood (Negative) Amorphous Sediment (None) /hpf Urine Mucus (None) /hpf 10/19/18 10/20/18 10/20/18 Range/Units 23:11 00:25 01:00 WBC (3.8-10.6) k/uL ABG pH 7.17 L* (7.35-7.45) ABG pCO2 67 H (35-45) mmHg ABG pO2 268 H (83-108) mmHg ABG HCO3 (21-25) mmol/L ABG Total CO2 26 H (19-24) mmol/L ABG O2 Saturation 99.4 H (94-97) % Sodium (137-145) mmol/L Chloride (98-107) mmol/L Carbon Dioxide (22-30) mmol/L BUN (7-17) mg/dL Creatinine (0.52-1.04) mg/dL Glucose (74-99) mg/dL POC Glucose (mg/dL) 217 H (75-99) mg/dL Calcium (8.4-10.2) mg/dL AST (14-36) U/L ALT (9-52) U/L Total Protein (6.3-8.2) g/dL Albumin (3.5-5.0) g/dL Urine Appearance Cloudy H (Clear) Urine Protein 1+ H (Negative) Urine Blood Small H (Negative) Amorphous Sediment Occasional H (None) /hpf Urine Mucus Rare H (None) /hpf 10/20/18 10/20/18 10/20/18 Range/Units 05:58 06:04 07:26 WBC 11.9 H (3.8-10.6) k/uL ABG pH (7.35-7.45) ABG pCO2 (35-45) mmHg ABG pO2 75 L (83-108) mmHg ABG HCO3 26 H (21-25) mmol/L ABG Total CO2 27 H (19-24) mmol/L ABG O2 Saturation (94-97) % Sodium 135 L (137-145) mmol/L Chloride 108 H (98-107) mmol/L Carbon Dioxide 20 L (22-30) mmol/L BUN 31 H (7-17) mg/dL Creatinine 1.51 H (0.52-1.04) mg/dL Glucose 165 H (74-99) mg/dL POC Glucose (mg/dL) (75-99) mg/dL Calcium 7.7 L (8.4-10.2) mg/dL AST 69 H (14-36) U/L ALT 55 H (9-52) U/L Total Protein 5.0 L (6.3-8.2) g/dL Albumin 2.7 L (3.5-5.0) g/dL Urine Appearance (Clear) Urine Protein (Negative) Urine Blood (Negative) Amorphous Sediment (None) /hpf Urine Mucus (None) /hpf Microbiology - Last 24 Hours (Table) 10/18/18 08:20 Gram Stain - Final Sputum Sputum Culture - Final Aminta albicans 10/13/18 23:47 Blood Culture - Final Blood No Growth after 144 hours Assessment and Plan Assessment: impression: 1 acute hypoxic and hypercapnic respiratory failure secondary to acute bilateral pneumonia, required intubation and mechanical ventilation on 10/19/2018. 2 acute sepsis secondary to pneumonia, with hypotension, which could be related to sepsis could also be related to hypovolemia. Patient did receive multiple doses of Lasix. And she was not placed on norepinephrine until last night after intubation. Hence the patient will be given fluids, will continue norepinephrine for now, and keep mean arterial pressure around 65. 3: Acute hypotension, could be related to sepsis/septic shock, however I feel the hypertension is mostly hypovolemic in nature, it is also related to sedation post intubation. patient will likely respond to fluids and we will likely taper and discontinue norepinephrine later today assuming her mean arterial p ressure remains around 65. Lasix was placed on hold, fluid bolus was given, and her main IV fluid was increased. 4 history of diabetes type 2 5 history of asthma patient is maintained on bronchodilators on outpatient basis including albuterol and Symbicort.and Singulair.presently inactive. 6 acute hypoxic respiratory failure secondary to extensive pneumonia involving both lungs. 7 right-sided pleural effusion, was not seen to be significant on ultrasound, hence no plans to do thoracentesis. Recommendation: Continue ventilatory support, start the nutritional support/enteral feeding, continue to titrate the norepinephrine to a mean arterial pressure of more than 65. Continue her usual cardiac meds patient is presently in normal sinus rhythm, her echocardiogram showed good LV function. Continue bronchodilators, continue GI and DVT prophylaxis, hold on diuretics, hydrate the patient cautiously, continue antibiotics, prognosis is guarded, updated her family condition. Patient is critically ill, we'll continue to follow. Critical care time is 40 minutes. Discussed her condition with the family, the offbearer sewer pipe, and the bootmaker on the case. Again critical care time is 40 minutes. Time with Patient: Greater than 30
[2018-10-20 11:49] LABS: Glucose,Whole Blood 117 mg/dL (75-99)
[2018-10-20 11:54] LABS: Amylase 83 U/L (30-110); Lipase 190 U/L (23-300)
[2018-10-20] MEDS: INSULIN ASPART (NovoLOG) 100 UNIT/ML VIAL SQ SCH ×2 (12:07→17:27)
[2018-10-20] MEDS: SODIUM CHLORIDE 0.9% 1,000 ML IV SCH (15:37)
[2018-10-20 17:08] LABS: Glucose,Whole Blood 126 mg/dL (75-99)
[2018-10-20] MEDS: SERTRALINE 50 MG TAB PO SCH (20:08)
[2018-10-20] MEDS: ATORVASTATIN 40 MG TAB PO SCH (20:08)
[2018-10-20] MEDS: AZITHROMYCIN 500 MG TAB PO SCH (20:09)
[2018-10-20] MEDS: MONTELUKAST 10 MG TAB PO SCH (20:23)
[2018-10-20] MEDS: ACETAMINOPHEN TAB 325 MG TAB PO PRN (20:34)
[2018-10-20 22:01] LABS: Glucose,Whole Blood 116 mg/dL (75-99)
[2018-10-20] MEDS: INSULIN DETEMIR (LEVEMIR) 100 UNIT/ML SYR SQ SCH (22:18)
--- NOTE | 2018-10-20 22:59 | P.PN ---
Subjective Progress Note Date: 10/20/18 58 -year-old female with history of diabetes mellitus type 2 generally is completely independent relates to approximate 4 day history of feeling poorly. She started to feel fever chills generalized malaise cough with yellowish sputum production and no hemoptysis. Her fever increased she felt w eak and confused and was brought to the emergency center. There she has not evidence of a high-grade fever leukocytosis and sepsis as well as atrial fibrillation, she was treated with a dose of Cardizem with hydration and resolution of her A. fib. The patient continued to feel ill continue to have ongoing fevers because of the consult was requested. At the time of the consult antibiotic therapy was altered and anti-inflammatory with Toradol was requested and the patient is feeling considerably better today. After the first dorsal Toradol her sugar went from 103.5-99.5. The highest it's been so far today is 101.5. Patient does feel poorly still. She has shortness of breath or oxygen therapy she has cough without much sputum production or hemoptysis does have discomfort in her chest with coughing. 10/17/2018 the patient had significant worsening of her status overnight. She developed atrial fibrillation with a rapid ventricular response and was brought to the intensive care unit has been treated with Cardizem and amiodarone. She has had an improvement of her cardiac dysrhythmia and is somewhat less short of breath. She had further fever which is now much improved since her transfer to the intensive care unit. She relates she still feels poorly but better than last night. She is not having chest pain. No chills or rigors are occurring at this time. 10/18/2018 patient is now feeling somewhat better. She is much less short of breath. Fevers have resolved. Cardiac dysrhythmia has improved. Leukocytosis is also improving. 10/19/2018 has further improvement. She is however quite sleepy today. Atrial fibrillation is improved. Leukocytosis improving. Appetite still somewhat poor and other than fatigue has improved. 10/20/2018 the patient now has a significant worsening of her status. She really developed respiratory failure last evening her current intubation sedation mechanical ventilation in addition of vasopressor therapy. She's been seen by pulmonary critical care. Her significant cardiac dysrhythmia does seem to be more stable at this time. Oxygenation is improved. Renal failure has worsened. Objective - Vital Signs Vital signs: Vital Signs Temp 101.1 F H 10/20/18 20:00 Pulse 84 10/20/18 22:00 Resp 20 10/20/18 22:00 BP 101/59 10/20/18 22:00 Pulse Ox 93 L 10/20/18 22:00 Intake & Output 10/20/18 10/20/18 10/21/18 06:59 18:59 06:59 Intake Total 282.456 3276.772 386.944 Output Total 1050 1635 370 Balance -526.462 214.772 16.944 Weight 97.5 kg 97.5 kg Intake: IV 370 1140 275 Piperacillin-Tazobactam 3 150 50 .375 gm In Sodium Chloride 0.9% 100 ml @ 25 mls/hr IVPB Q8H [facility] Rx#: [id number] Sodium Chloride 0.9% 1, 220 1140 225 000 ml @ 75 mls/hr IV . [id number] [facility] Rx#:[id number] Intake, IV Titration 153.538 649.772 111.944 Amount Norepinephrine 4 mg In 53.547 454.453 Sodium Chloride 0.9% 250 ml @ 0.05 MCG/KG/MIN 17. 869 mls/hr IV .[id number] [facility] Rx#:[id number] Propofol 1,000 mg In 99.991 195.319 111.944 Empty Bag 1 bag @ Titrate IV .Q0M [facility] Rx#: [id number] Oral 60 Output: Gastric Drainage 250 Urine 1050 1385 370 Other: Voiding Method Indwelling Catheter Indwelling Catheter Indwelling Catheter # Voids 1 # Bowel Movements 1 - Exam 58 -year-old woman, she is now intubated sedated and mechanically ventilated on vasopressor therapy HEENT: Anicteric conjunctiva are pink and moist nasal mucosa grossly intact without significant lesions, there is no thrush. Neck: The neck is supple without significant lymphadenopathy or thyromegaly. Lungs: Symmetrical bilateral air entry,there is some evidence of air entry with some crackles noted a few crackles at the right posterior mid zone, posterior left lower zone also with crackles no distinct egophony nor dullness in either area some expiratory wheezes are scattered Heart: Rhythm is regular with an audible S1-S2, no S3 no S4. There is no significant murmur click or rub, PMI was nondisplaced. Abdomen: Obese, Positive bowel sounds soft and nontender without palpable masses or organomegaly. There was no guarding or rebound. Extremities: The upper extremities have excellent pulses they are symmetric, no significant petechiae or telangiectasia. No splinter hemorrhages were noted. His also lower extremity edema no open ulcerations Neuro: She is sedated and mechanically ventilated - Labs CBC & Chem 7: 10/20/18 05:58 10/20/18 06:04 Labs: Abnormal Lab Results - Last 24 Hours (Table) 10/19/18 10/20/18 10/20/18 Range/Units 23:11 00:25 01:00 WBC (3.8-10.6) k/uL ABG pH 7.17 L* (7.35-7.45) ABG pCO2 67 H (35-45) mmHg ABG pO2 268 H (83-108) mmHg ABG HCO3 (21-25) mmol/L ABG Total CO2 26 H (19-24) mmol/L ABG O2 Saturation 99.4 H (94-97) % Sodium (137-145) mmol/L Chloride (98-107) mmol/L Carbon Dioxide (22-30) mmol/L BUN (7-17) mg/dL Creatinine (0.52-1.04) mg/dL Glucose (74-99) mg/dL POC Glucose (mg/dL) 217 H (75-99) mg/dL Calcium (8.4-10.2) mg/dL AST (14-36) U/L ALT (9-52) U/L Total Protein (6.3-8.2) g/dL Albumin (3.5-5.0) g/dL Urine Appearance Cloudy H (Clear) Urine Protein 1+ H (Negative) Urine Blood Small H (Negative) Amorphous Sediment Occasional H (None) /hpf Urine Mucus Rare H (None) /hpf 10/20/18 10/20/18 10/20/18 Range/Units 05:58 06:04 07:26 WBC 11.9 H (3.8-10.6) k/uL ABG pH (7.35-7.45) ABG pCO2 (35-45) mmHg ABG pO2 75 L (83-108) mmHg ABG HCO3 26 H (21-25) mmol/L ABG Total CO2 27 H (19-24) mmol/L ABG O2 Saturation (94-97) % Sodium 135 L (137-145) mmol/L Chloride 108 H (98-107) mmol/L Carbon Dioxide 20 L (22-30) mmol/L BUN 31 H (7-17) mg/dL Creatinine 1.51 H (0.52-1.04) mg/dL Glucose 165 H (74-99) mg/dL POC Glucose (mg/dL) (75-99) mg/dL Calcium 7.7 L (8.4-10.2) mg/dL AST 69 H (14-36) U/L ALT 55 H (9-52) U/L Total Protein 5.0 L (6.3-8.2) g/dL Albumin 2.7 L (3.5-5.0) g/dL Urine Appearance (Clear) Urine Protein (Negative) Urine Blood (Negative) Amorphous Sediment (None) /hpf Urine Mucus (None) /hpf 10/20/18 10/20/18 10/20/18 Range/Units 11:47 17:07 21:59 WBC (3.8-10.6) k/uL ABG pH (7.35-7.45) ABG pCO2 (35-45) mmHg ABG pO2 (83-108) mmHg ABG HCO3 (21-25) mmol/L ABG Total CO2 (19-24) mmol/L ABG O2 Saturation (94-97) % Sodium (137-145) mmol/L Chloride (98-107) mmol/L Carbon Dioxide (22-30) mmol/L BUN (7-17) mg/dL Creatinine (0.52-1.04) mg/dL Glucose (74-99) mg/dL POC Glucose (mg/dL) 117 H 126 H 116 H (75-99) mg/dL Calcium (8.4-10.2) mg/dL AST (14-36) U/L ALT (9-52) U/L Total Protein (6.3-8.2) g/dL Albumin (3.5-5.0) g/dL Urine Appearance (Clear) Urine Protein (Negative) Urine Blood (Negative) Amorphous Sediment (None) /hpf Urine Mucus (None) /hpf Microbiology - Last 24 Hours (Table) 10/20/18 00:10 Gram Stain - Preliminary Sputum Sputum Culture - Preliminary 10/18/18 08:20 Gram Stain - Final Sputum Sputum Culture - Final Aminta albicans 10/13/18 23:47 Blood Culture - Final Blood No Growth after 144 hours Laboratory Results WBC 11.9 k/uL (3.8-10.6) H 10/20/18 05:58 RBC 4.06 m/uL (3.80-5.40) 10/20/18 05:58 Hgb 12.1 gm/dL (11.4-16.0) 10/20/18 05:58 Hct 37.1 % (34.0-46.0) 10/20/18 05:58 MCV 91.4 fL (80.0-100.0) 10/20/18 05:58 MCH 29.9 pg (25.0-35.0) 10/20/18 05:58 MCHC 32.7 g/dL (31.0-37.0) 10/20/18 05:58 RDW 14.7 % (11.5-15.5) 10/20/18 05:58 Plt Count 325 k/uL (150-450) 10/20/18 05:58 Neutrophils % 78 % 10/16/18 09:11 Lymphocytes % 17 % 10/16/18 09:11 Monocytes % 3 % 10/16/18 09:11 Eosinophils % 0 % 10/16/18 09:11 Basophils % 0 % 10/16/18 09:11 Neutrophils # 4.9 k/uL (1.3-7.7) 10/16/18 09:11 Lymphocytes # 1.1 k/uL (1.0-4.8) 10/16/18 09:11 Monocytes # 0.2 k/uL (0-1.0) 10/16/18 09:11 Eosinophils # 0.0 k/uL (0-0.7) 10/16/18 09:11 Basophils # 0.0 k/uL (0-0.2) 10/16/18 09:11 Hypochromasia Slight 10/20/18 05:58 PT 10.5 sec (9.0-12.0) 10/13/18 23:47 INR 1.0 (<1.2) 10/13/18 23:47 APTT 28.8 sec (22.0-30.0) 10/13/18 23:47 Sample Site lrad 10/20/18 07:26 ABG pH 7.37 (7.35-7.45) 10/20/18 07:26 ABG pCO2 44 mmHg (35-45) 10/20/18 07:26 ABG pO2 75 mmHg (83-108) L 10/20/18 07:26 ABG HCO3 26 mmol/L (21-25) H 10/20/18 07:26 ABG Total CO2 27 mmol/L (19-24) H 10/20/18 07:26 ABG O2 Saturation 95.4 % (94-97) 10/20/18 07:26 ABG Base Excess 0.2 mmol/L 10/20/18 07:26 Maxime Test Yes 10/20/18 07:26 FiO2 50 % 10/20/18 07:26 Sodium 135 mmol/L (137-145) L 10/20/18 06:04 Potassium 4.9 mmol/L (3.5-5.1) 10/20/18 06:04 Chloride 108 mmol/L (98-107) H 10/20/18 06:04 Carbon Dioxide 20 mmol/L (22-30) L 10/20/18 06:04 Anion Gap 7 mmol/L 10/20/18 06:04 BUN 31 mg/dL (7-17) H 10/20/18 06:04 Creatinine 1.51 mg/dL (0.52-1.04) H 10/20/18 06:04 Est GFR (CKD-EPI)AfAm 43 (>60 ml/min/1.73 sqM) 10/20/18 06:04 Est GFR (CKD-EPI)NonAf 38 (>60 ml/min/1.73 sqM) 10/20/18 06:04 Glucose 165 mg/dL (74-99) H 10/20/18 06:04 POC Glucose (mg/dL) 116 mg/dL (75-99) H 10/20/18 21:59 POC Glu Painter Assistant ID He [place] 10/20/18 21:[address] Glu mg/dL 186 10/15/18 06:32 Hemoglobin A1c 8.1 % (4.0-6.0) H 10/15/18 06:32 Plasma Lactic Acid Bola 0.8 mmol/L (0.7-2.0) 10/16/18 16:53 Calcium 7.7 mg/dL (8.4-10.2) L 10/20/18 06:04 Magnesium 2.6 mg/dL (1.6-2.3) H 10/17/18 08:05 Total Bilirubin 0.5 mg/dL (0.2-1.3) 10/20/18 06:04 AST 69 U/L (14-36) H 10/20/18 06:04 ALT 55 U/L (9-52) H 10/20/18 06:04 Alkaline Phosphatase 78 U/L (38-126) 10/20/18 06:04 NT-Pro-B Natriuret Pep 256 pg/mL 10/15/18 06:32 Total Protein 5.0 g/dL (6.3-8.2) L 10/20/18 06:04 Albumin 2.7 g/dL (3.5-5.0) L 10/20/18 06:04 Amylase 83 U/L (30-110) 10/20/18 06:04 Lipase 190 U/L (23-300) 10/20/18 06:04 Urine Color Light Yellow 10/20/18 01:00 Urine Appearance Cloudy (Clear) H 10/20/18 01:00 Urine pH 5.5 (5.0-8.0) 10/20/18 01:00 Ur Specific [place] 1.011 (1.001-1.035) 10/20/18 01:00 Urine Protein 1+ (Negative) H 10/20/18 01:00 Urine Glucose (UA) Negative (Negative) 10/20/18 01:00 Urine Ketones Negative (Negative) 10/20/18 01:00 Urine Blood Small (Negative) H 10/20/18 01:00 Urine Nitrite Negative (Negative) 10/20/18 01:00 Urine Bilirubin Negative (Negative) 10/20/18 01:00 Urine Urobilinogen <2.0 mg/dL (<2.0) 10/20/18 01:00 Ur Leukocyte Esterase Negative (Negative) 10/20/18 01:00 Urine RBC 3 /hpf (0-5) 10/20/18 01:00 Urine WBC 1 /hpf (0-5) 10/20/18 01:00 Ur Squamous Epith Cells <1 /hpf (0-4) 10/20/18 01:00 Amorphous Sediment Occasional /hpf (None) H 10/20/18 01:00 Urine Bacteria Rare /hpf (None) H 10/13/18 18:06 Urine Mucus Rare /hpf (None) H 10/20/18 01:00 Vancomycin Trough 24.7 ug/mL 10/20/18 06:04 C. difficile (EIA) Intrp Negative (Negative) 10/14/18 19:48 Urine Legionella Ag Not detected (Not detected) 10/16/18 20:00 Microbiology 10/20/18 00:10 Sputum Gram Stain - Preliminary 10/20/18 00:10 Sputum Sputum Culture - Preliminary 10/18/18 08:20 Sputum Gram Stain - Final 10/18/18 08:20 Sputum Sputum Culture - Final Aminta albicans 10/13/18 23:47 Blood Blood Culture - Final No Growth after 144 hours 10/13/18 18:06 Urine,Voided Urine Culture - Final Assessment and Plan (1) Paroxysmal atrial fibrillation with rapid ventricular response Current Visit: Yes Status: Acute Code(s): I48.0 - PAROXYSMAL ATRIAL FIBRILLATION SNOMED Code(s): 879631738 (2) Bilateral pneumonia Narrative/Plan: 58-year-old female presents to hospital with a several-day history of increasing illness this is high-grade fever chills or malaise and cough without much sputum production. There is evidence of pneumonia minimally by chest x-ray the patient was remaining very ill with fevers of 103 despite antibiotic t herapy. A consult was requested and at that time antibiotic therapy was altered to cover for gram negatives including Pseudomonas as well as resistant gram- positive pathogen such as MRSA and vancomycin was added. For fever Toradol was added given the normal renal function and there is no evidence of improvement of how the patient is feeling with this. Fevers have trended to improvement. Will allow further doses of Toradol Renal function to be followed The patient is requiring oxygen therapy and this is being monitored also. Blood glucoses are being monitored. Leukocytosis is trending to improvement Diarrhea did occur and C. diff testing was negative. Lomotil be requested to improve some diarrhea patient encouraged to utilize yogurt with meals. 10/17/2018 is noted the patient had acute worsening of her status with recurrent fever to 103 with the development of atrial fibrillation with rapid ventricular response and transferred to intensive care unit. She's been seen by pulmonary critical care. If there is no further improvement will consider bronchoscopy. Her fever has now resolved and she feels just minimally better. Does complain of a significant oral discomfort cool solution requested 10/18/2018 he shouldn't is improved today. She is less short of breath. The subdural discomfort is improved and has done well with the cool solution. She is eating today. There is no further fever or chills Pruritic chest discomforts have improved She is starting to mobilize some secretions which has helped her shortness of breath. Appetite poor but she is eating without difficulty Continue current antibiotic therapy, no plans for bronchoscopy at this time 10/19/2018 patient has had some further improvement. She is less short of breath. She is on less oxygen. She's having no further fevers. Mobilizing secretions better. Appetite is adequate. Leukocytosis is improving. She had an increase of her creatinine to 1.15 and ketorolac has been discontinued. Vancomycin levels being monitored closely regarding the treatment of her extensive pneumonia. 10/20/2018 is noted the patient is now had worsening of her status with respiratory failure requiring intubation sedation and mechanical ventilation. She is being followed by pulmonary critical care, with her marked alteration is status bronchoscopy would be helpful for further deep specimens giving all the negative culture so far. Given the lack of any positive blood cultures and no evidence of any resistant gram-positive pathogens, and with the increasing creatinine we'll discontinue vancomycin at this point in time and monitor. Current Visit: Yes Status: Acute Code(s): J18.9 - PNEUMONIA, UNSPECIFIED ORGANISM SNOMED Code(s): 036006286 (3) Fever Current Visit: Yes Status: Acute Code(s): R50.9 - FEVER, UNSPECIFIED SNOMED Code(s): 555291122 (4) Leukocytosis Current Visit: Yes Status: Acute Code(s): D72.829 - ELEVATED WHITE BLOOD CELL COUNT, UNSPECIFIED SNOMED Code(s): 563598718
[2018-10-20 23:53] LABS: Glucose,Whole Blood 83 mg/dL (75-99)
[2018-10-21] MEDS: INSULIN ASPART (NovoLOG) 100 UNIT/ML VIAL SQ SCH ×5 (00:01→23:50)
[2018-10-21] MEDS: PROPOFOL 1,000 MG in EMPTY BAG 1 BAG IV SCH ×8 (00:46→23:27)
[2018-10-21 02:15] LABS: Glucose,Whole Blood 75 mg/dL (75-99)
[2018-10-21] MEDS: IPRATROPIUM-ALBUTEROL 3 ML NEB INHALATION PRN (03:03)
[2018-10-21 05:30] LABS: HCT 32.8 % (34.0-46.0); HGB 10.6 gm/dL (11.4-16.0); MCH 28.6 pg (25.0-35.0); MCHC 32.4 g/dL (31.0-37.0); MCV 88.2 fL (80.0-100.0); Mean Platelet Volume 7.3; Platelet Count 346 k/uL (150-450); RBC 3.72 m/uL (3.80-5.40); RDW 14.4 % (11.5-15.5); WBC 6.4 k/uL (3.8-10.6)
[2018-10-21 05:38] LABS: Glucose,Whole Blood 71 mg/dL (75-99)
[2018-10-21] MEDS: SODIUM CHLORIDE 0.9% 1,000 ML IV SCH ×2 (05:44→19:51)
[2018-10-21] MEDS: PIPERACILLIN-TAZOBACTAM 3.375 GM in SODIUM CHLORIDE 0.9% 100 ML IVPB SCH ×3 (05:44→20:13)
[2018-10-21 05:47] LABS: Albumin 2.3 g/dL (3.5-5.0); Calcium 7.3 mg/dL (8.4-10.2); Potassium 4.2 mmol/L (3.5-5.1); Total Bilirubin 0.3 mg/dL (0.2-1.3); Total Protein 4.5 g/dL (6.3-8.2)
[2018-10-21 05:52] LABS: Vancomycin,Random 17.9 ug/mL
--- NOTE | 2018-10-21 07:03 | P.PN ---
Subjective 58-year-old female admitted for pneumonia in the right lower lung ortega therapy to the chest x-ray today with right showing infiltrate in both lung lower lobes and a prominent fissure. Patient still febrile patient can use to be on Rocephin and azithromycin Lisa consulting infectious disease, patient's is still fatigued and malaise is in distress because of fatigue and sepsis. Continues to have high-grade fever. I'll obtain a BNP and echocardiogram as well because of bilateral lower infiltrates the possibility of effusion and a prominent fissure. He should and lungs are clear to auscultation but has saturations of 92%. Patient may require a CAT scan of the chest and pulmonary consultation. 10/16/2018 Patient looks much better today feels better today. Patient CAT scan of the chest which showed significant consolidation of the right middle lobe and by lateral lower lobes most probably pneumonia patient was evaluated pulmonary and infectious disease patient was started on the Lasix empirically by pulmonology. Patient's sister Zosyn and vancomycin by infectious disease. 10/17/2018 Patient had worsening in her clinical status as today requiring high amounts of causes started wheezing patient was started on systemic steroids transferred to ICU. Patient is hyponatremic no evidence of for heart failure exacerbation at this time patient was started on IV fluids again. Although her fever has gotten better yesterday it was very high. Patient looks better because of resolution of fever and systemic inflammatory response. Sputum cultures are not available which will be ordered. Patient went into A. fib and patient is requiring amiodarone drip at this time. 10/18/2018 pt is seen in the ICU, she presents with sepsis secondary to Bilateral pneumonia, pt is also treated for possible acute copd exacerbation ,pt is alr halle on antibiotic and steroids, today chest us showing no fluid collection , no need for thoracocentasis, hypodermically stable she is saturation 98% on 8 L oxygen via high flow oxygen. her wbc 13K. Na 133 today 10/19/2018 Patient in the ICU, was drowsy could be part of her acute delirium from her sepsis. However she is answering questions appropriately. She still LIMITS of dyspnea and she has bilateral basal crepitation. Lasix was continue with by pulmonary team recommendation. Patient is hemodynamically stable however she is a little bit tachypneic. She still on 6 L oxygen high flow with oxygen saturating at 95%. Labs reviewed, CBC is unremarkable. Creatinine is increased from 0.7 up to 1.1, nephrology team has been consulted. Patient remains on vancomycin as per infectious disease recommendation with pharmacy to dose. Also she is on Zosyn. 10/20/2018 Last night patient developed acute hypercapnic respiratory failure, patient got intubated and she was started on Levophed for hypotension, mostly related to her septic shock. Patient is currently on mechanical ventilation and she is sedated. Systolic blood pressure is 90s. Doubt shows trending up creatinine to 1.5. Nephrology input is appreciated. he Recommended to hold vancomycin and check level. WBC is 11.9 K. Sodium 135, patient has been followed by critical care team as well. Infectious disease also evaluated the patient. 10/21/2018 Patient remains in the ICU intubated and sedated, patient is had fever last night of 101. She is a breathing at a rate of 20, blood pressure 101/72, saturating 95% on FiO2 of 50. her leukocytosis improved from 11.9, down to 6.4. Creatinine is still elevated at 1.6. Sugar is controlled. Culture showing Aminta in the sputum. Last Vanco trough from yesterday was 2.4.7, while a random vancomycin the early this morning is down to 17.9. Vancomycin still on hold. Infectious disease input is appreciated Review of systems: Not applicable Medication: Tylenol 650 mg, Eliquis 5 mg, amiodarone 200 mg, Lipitor 40 mg, Zithromax 500 mg, Symbicort 80-4.5 g, Lomotil 1 tablet each, insulin as part as per scale, Levemir insulin 30 units, magnesium oxide 400 mg, Lopressor 25 mg, Singulair 10 mg, Protonix 40 mg, Zosyn 3.375 mg, is on 40 mg, Zoloft 50 mg, prednisone 40 mg, normal saline at 75 L/h Objective - Vital Signs Vital signs: Vital Signs Temp 98.7 F 10/21/18 04:00 Pulse 95 10/21/18 05:30 Resp 20 10/21/18 05:30 BP 101/72 10/21/18 05:30 Pulse Ox 95 10/21/18 05:30 Intake & Output 10/20/18 10/20/18 10/21/18 06:59 18:59 06:59 Intake Total 102.530 5951.772 1275.000 Output Total 1050 1635 1040 Balance -526.462 214.772 235.000 Weight 97.5 kg 97.5 kg 99.9 kg Intake: IV 370 1140 975 Piperacillin-Tazobactam 3 150 75 .375 gm In Sodium Chloride 0.9% 100 ml @ 25 mls/hr IVPB Q8H [facility] Rx#: [id number] Sodium Chloride 0.9% 1, 220 1140 900 000 ml @ 75 mls/hr IV . [id number] [facility] Rx#:[id number] Intake, IV Titration 153.538 649.772 300.000 Amount Norepinephrine 4 mg In 53.547 454.453 Sodium Chloride 0.9% 250 ml @ 0.05 MCG/KG/MIN 17. 869 mls/hr IV .[id number] [facility] Rx#:[id number] Propofol 1,000 mg In 99.991 195.319 300.000 Empty Bag 1 bag @ Titrate IV .Q0M [facility] Rx#: [id number] Oral 60 Output: Gastric Drainage 250 Urine 1050 1385 840 Stool 200 Other: Voiding Method Indwelling Catheter Indwelling Catheter Indwelling Catheter # Voids 1 # Bowel Movements 1 - Exam GENERAL: The patient is alert and oriented x3, not in acute distress. He is on 12 L of high flow numbness cannula oxygen HEENT: Pupils are round and equally reacting to light. EOMI. No scleral icterus. No conjunctival pallor. Normocephalic, atraumatic. No pharyngeal erythema. No thyromegaly. CARDIOVASCULAR: S1 and S2 present. No murmurs, rubs, or gallops. -PULMONARY: Chest is clear to auscultation, no wheezing or crackles. Breath sounds are absent in bilateral lower lung bases. Bilateral basal crepitation ABDOMEN: Soft, nontender, nondistended, normoactive bowel sounds. No palpable organomegaly. MUSCULOSKELETAL: No joint swelling or deformity. EXTREMITIES: No cyanosis, clubbing, or pedal edema. NEUROLOGICAL: Gross neurological examination did not reveal any focal deficits. SKIN: No rashes. - Labs CBC & Chem 7: 10/21/18 05:13 10/21/18 05:13 Labs: Abnormal Lab Results - Last 24 Hours (Table) 10/20/18 10/20/1810/20/19 Range/Units 07:26 11:47 17:07 RBC (3.80-5.40) m/uL Hgb (11.4-16.0) gm/dL Hct (34.0-46.0) % ABG pO2 75 L (83-108) mmHg ABG HCO3 26 H (21-25) mmol/L ABG Total CO2 27 H (19-24) mmol/L Chloride (98-107) mmol/L BUN (7-17) mg/dL Creatinine (0.52-1.04) mg/dL Glucose (74-99) mg/dL POC Glucose (mg/dL) 117 H 126 H (75-99) mg/dL Calcium (8.4-10.2) mg/dL AST (14-36) U/L Total Protein (6.3-8.2) g/dL Albumin (3.5-5.0) g/dL 10/20/18 10/21/18 10/21/18 Range/Units 21:59 05:13 05:13 RBC 3.72 L (3.80-5.40) m/uL Hgb 10.6 L (11.4-16.0) gm/dL Hct 32.8 L (34.0-46.0) % ABG pO2 (83-108) mmHg ABG HCO3 (21-25) mmol/L ABG Total CO2 (19-24) mmol/L Chloride 110 H (98-107) mmol/L BUN 30 H (7-17) mg/dL Creatinine 1.61 H (0.52-1.04) mg/dL Glucose 72 L (74-99) mg/dL POC Glucose (mg/dL) 116 H (75-99) mg/dL Calcium 7.3 L (8.4-10.2) mg/dL AST 50 H (14-36) U/L Total Protein 4.5 L (6.3-8.2) g/dL Albumin 2.3 L (3.5-5.0) g/dL 10/21/18 Range/Units 05:36 RBC (3.80-5.40) m/uL Hgb (11.4-16.0) gm/dL Hct (34.0-46.0) % ABG pO2 (83-108) mmHg ABG HCO3 (21-25) mmol/L ABG Total CO2 (19-24) mmol/L Chloride (98-107) mmol/L BUN (7-17) mg/dL Creatinine (0.52-1.04) mg/dL Glucose (74-99) mg/dL POC Glucose (mg/dL) 71 L (75-99) mg/dL Calcium (8.4-10.2) mg/dL AST (14-36) U/L Total Protein (6.3-8.2) g/dL Albumin (3.5-5.0) g/dL Microbiology - Last 24 Hours (Table) 10/20/18 00:10 Gram Stain - Preliminary Sputum Sputum Culture - Preliminary 10/18/18 08:20 Gram Stain - Final Sputum Sputum Culture - Final Aminta albicans Assessment and Plan Assessment: Plan: -Severe sepsis progressed to septic shock: Secondary to right lower lobe pneumonia possibly community-acquired pneumonia since there is no improvement in improvement with significant worsening to bilateral lower lobes of the chest. Patient was switched to vancomycin (on hold) and Zosyn by infectious disease CAT scan of the chest as mentioned above awaiting blood cultures and sputum cultures which are so far negative. -acute kidney injury , nephrology consult is appreciated, hold toradol and vancomycin . monitor creatinine -Acute hypoxic hypercapnic respiratory failure secondary to pneumonia and COPD exacerbation patient was started on systemic steroids and inhalational treatments. Patient indicated intubation and mechanical ventilation. Managed by pulmonary team -Toxic encephalopathy and delirium secondary to sepsis patient .improved -Shortness of breath secondary to sepsis and pneumonia. Patient's BNP is 250 -Hyponatremia hypovolemic hyponatremia and secondary to sepsis patient was started on IV fluids again is, improving -Type 2 diabetes mellitus, patient will be continued on present regimen. Patient's hemoglobin A1c is 8.0 -Hyperlipidemia -Lactic is doses seconded to sepsis metformin was discontinued, lactic is doses improved -Hypertension hold off on lisinopril because of sepsis and low blood pressure concerns -Possible history of COPD although with acute exacerbation -Episode of A. fib proximal probably proximal A. fib patient presently is in rapid ventricular rate was started back on amiodarone Prognosis is guarded
[2018-10-21 07:33] LABS: ABG Base Excess 1.2 mmol/L; ABG HCO3 26 mmol/L (21-25); ABG Oxygen Saturation 96.7 % (94-97); ABG PCO2 40 mmHg (35-45); ABG PH 7.42 (7.35-7.45); ABG PO2 84 mmHg (83-108); ABG TCO2 27 mmol/L (19-24); Allen Test Performed? Yes
[2018-10-21 07:41] LABS: Glucose,Whole Blood 87 mg/dL (75-99)
[2018-10-21] MEDS: MAG HYDROX/AL HYDROX/SIMETH 30 ML, LIDOCAINE VISCOUS 30 ML, NYSTATIN 100,000 UNIT/ML SU... PO SCH ×12 (07:56→21:35)
[2018-10-21] MEDS: SYMBICORT 80-4.5 MCG INHALER INHALATION SCH ×2 (08:06→20:52)
[2018-10-21] MEDS: IPRATROPIUM-ALBUTEROL 3 ML NEB INHALATION SCH ×4 (08:06→20:52)
[2018-10-21] MEDS: AMIODARONE 200 MG TAB PO SCH ×2 (08:20→20:11)
[2018-10-21] MEDS: PANTOPRAZOLE 40 MG TABLET PO SCH (08:20)
[2018-10-21] MEDS: APIXABAN 5 MG TAB PO SCH ×2 (08:21→20:12)
[2018-10-21] MEDS: CHLORHEXIDINE GLUCONATE 15 ML CUP MUCOUS MEM SCH ×2 (08:21→20:12)
[2018-10-21] MEDS: POTASSIUM BICARBONATE/CIT AC 20 MEQ TABLET.EFF PO SCH (08:21)
[2018-10-21] MEDS: predniSONE 20 MG TAB PO SCH (08:21)
[2018-10-21] MEDS: METOPROLOL TARTRATE 25 MG TAB PO SCH ×2 (08:21→20:11)
[2018-10-21] MEDS: MAGNESIUM OXIDE 400 MG TAB PO SCH (08:21)
--- NOTE | 2018-10-21 09:06 | XR ---
EXAMINATION TYPE: XR chest 1V portable DATE OF EXAM: 10/21/2018 COMPARISON: 10/20/2018 HISTORY: Tube placement TECHNIQUE: Single frontal view of the chest is obtained. FINDINGS: Bilateral consolidation and pleural effusion. ET and NG tube stable. Biapical pleural thic kening. Diffuse interstitial pattern. IMPRESSION: Diffuse pleural-parenchymal changes are stable correlate for pulmonary edema or ARDS, ot herwise consider pneumonia.
--- NOTE | 2018-10-21 09:09 | P.PN ---
Subjective Patient is seen in follow-up for acute kidney injury. Baseline creatinine is near 1. It is up to 1.61 today. Patient went into hypercapnic respiratory failure and was subsequently intubated on October 19. Remains intubated. She was also quite hypotensive and is currently maintained on Levophed. Also on IV fluids. She is nonoliguric. Currently being treated for pneumonia. Vital signs are stable. Maintained on vasopressors. General: The patient appeared well nourished and normally developed. HEENT: Head exam is unremarkable. Neck is without jugular venous distension. Intubated. LUNGS: Breath sounds decreased. HEART: Rate and Rhythm are regular. First and second heart sounds normal. No murmurs, rubs or gallops. ABDOMEN: Abdominal exam reveals normal bowel sounds. Non-tender. EXTREMITITES: Trace edema. Objective - Vital Signs Vital signs: Vital Signs Temp 98.7 F 10/21/18 04:00 Pulse 90 10/21/18 08:19 Resp 22 10/21/18 07:00 BP 103/67 10/21/18 07:00 Pulse Ox 96 10/21/18 07:00 Intake & Output 10/20/18 10/21/18 10/21/18 18:59 06:59 18:59 Intake Total 5048.462 7601.000 235.085 Output Total 1635 1040 55 Balance 214.772 235.000 180.085 Weight 97.5 kg 99.9 kg Intake: IV 1140 975 100 Piperacillin-Tazobactam 3 75 25 .375 gm In Sodium Chloride 0.9% 100 ml @ 25 mls/hr IVPB Q8H [facility] Rx#: [id number] Sodium Chloride 0.9% 1, 1140 900 75 000 ml @ 75 mls/hr IV . [id number] [facility] Rx#:[id number] Intake, IV Titration 649.772 300.000 135.085 Amount Norepinephrine 4 mg In 454.453 135.085 Sodium Chloride 0.9% 250 ml @ 0.05 MCG/KG/MIN 17. 869 mls/hr IV .[id number] [facility] Rx#:[id number] Propofol 1,000 mg In 195.319 300.000 Empty Bag 1 bag @ Titrate IV .Q0M [facility] Rx#: [id number] Oral 60 Output: Gastric Drainage 250 Urine 1385 840 55 Stool 200 Other: Voiding Method Indwelling Catheter Indwelling Catheter # Voids 1 # Bowel Movements 1 - Labs CBC & Chem 7: 10/21/18 05:13 10/21/18 05:13 Labs: Abnormal Lab Results - Last 24 Hours (Table) 10/20/18 10/20/18 10/20/18 Range/Units 11:47 17:07 21:59 RBC (3.80-5.40) m/uL Hgb (11.4-16.0) gm/dL Hct (34.0-46.0) % ABG HCO3 (21-25) mmol/L ABG Total CO2 (19-24) mmol/L Chloride (98-107) mmol/L BUN (7-17) mg/dL Creatinine (0.52-1.04) mg/dL Glucose (74-99) mg/dL POC Glucose (mg/dL) 117 H 126 H 116 H (75-99) mg/dL Calcium (8.4-10.2) mg/dL AST (14-36) U/L Total Protein (6.3-8.2) g/dL Albumin (3.5-5.0) g/dL 10/21/18 10/21/18 10/21/18 Range/Units 05:13 05:13 05:36 RBC 3.72 L (3.80-5.40) m/uL Hgb 10.6 L (11.4-16.0) gm/dL Hct 32.8 L (34.0-46.0) % ABG HCO3 (21-25) mmol/L ABG Total CO2 (19-24) mmol/L Chloride 110 H (98-107) mmol/L BUN 30 H (7-17) mg/dL Creatinine 1.61 H (0.52-1.04) mg/dL Glucose 72 L (74-99) mg/dL POC Glucose (mg/dL) 71 L (75-99) mg/dL Calcium 7.3 L (8.4-10.2) mg/dL AST 50 H (14-36) U/L Total Protein 4.5 L (6.3-8.2) g/dL Albumin 2.3 L (3.5-5.0) g/dL 10/21/18 Range/Units 07:15 RBC (3.80-5.40) m/uL Hgb (11.4-16.0) gm/dL Hct (34.0-46.0) % ABG HCO3 26 H (21-25) mmol/L ABG Total CO2 27 H (19-24) mmol/L Chloride (98-107) mmol/L BUN (7-17) mg/dL Creatinine (0.52-1.04) mg/dL Glucose (74-99) mg/dL POC Glucose (mg/dL) (75-99) mg/dL Calcium (8.4-10.2) mg/dL AST (14-36) U/L Total Protein (6.3-8.2) g/dL Albumin (3.5-5.0) g/dL Microbiology - Last 24 Hours (Table) 10/20/18 00:10 Gram Stain - Preliminary Sputum Sputum Culture - Preliminary 10/18/18 08:20 Gram Stain - Final Sputum Sputum Culture - Final Aminta albicans Assessment and Plan Plan: Assessment: 1. Acute kidney injury secondary to ATN secondary to hemodynamic instability, contrast-induced nephropathy and sepsis. Baseline creatinine 1. It is 1.61 today. Trace proteinuria noted on UA. 2. Mild volume overload. Better. 3. Septic shock secondary to pneumonia maintained on antibiotics. Currently on Levophed. Sputum culture positive for Aminta. 4. A. fib with RVR. Currently rate controlled. Maintain on oral amiodarone and Lopressor. Also on anticoagulation. Cardiology following. 5. Insulin-dependent diabetes mellitus. 6. Acute hypercapnic respiratory failure. 7. Metabolic acidosis secondary to acute kidney injury. Better. Plan: Hold off on diuretics for now. Maintain normal saline at 75 mL an hour. Avoid nephrotoxins. Discontinued Toradol. Continue to monitor renal function and urine output. Monitor vancomycin levels. Dose to be adjusted for renal function. Follow-up cultures.
[2018-10-21 11:32] LABS: Glucose,Whole Blood 98 mg/dL (75-99)
[2018-10-21] MEDS ORDERED: IV FLUID CONTINUATION 1,000 ML IV ONE (12:51)
--- NOTE | 2018-10-21 15:19 | P.PN ---
Subjective Progress Note Date: 10/21/18 Principal diagnosis: Acute hypoxic respiratory failure secondary to extensive pneumonia involving both lungs this is a 58-year-old femalewith history of diabetes, nonsmoker, patient presented to the ER on 10/13/2018,and she was complaining mostly of feeling sick, complaining of intermittent episodes of nausea and vomiting. Patient was also noted to be delirious and confused and she was noted to have fever and leukocytosis. Chest x-ray and CT of the chest showed a right lower lobe and right middle lobe. Consolidation. It also showed some partial atelectasis in the inferior lingula and a left lower lobe.patient was also noted to have high- grade fever with leukocytosis and she was noted to have intermittent episodes of atrial fibrillation with RVR. Treated with Cardizem, seen by cardiology on consultation, and the patient was noted to have worsening hypoxia and her oxygen requirement was getting more and more since admission, has the patient was transferred yesterday to the intensive care unit, and we were asked to see her on consultation. Patient denies any significant pulmonary symptoms during my evaluation, denies even being short of breath, denies any cough, and she denies any wheezing.she was already seen by Dr. Juares on consultation, and she was started empirically on antibiotics includingZosyn and vancomycin.patient remains on IV Cardizem, and she is also on metoprolol. However when she was seen by cardiology today, plan was to start the patient on amiodarone and discontinue Cardizem. Patient was reevaluated today in the ICU on 10/18/2018, remains on a high flow nasal cannula at 10 L/m, O2 saturation is definitely improving compared to yes terday. Her O2 saturation is 97% today. Remains on amiodarone, drip at present, chest x-ray today however is showing improvement in overall aeration, but there is a new right-sided pleural effusion associated with atelectasis. Improved aeration noted in the left lung base. Hence we will likely consider ultrasound of the chest, and proceed to thoracentesis in the effusion isn't large enough to be drained to improve her oxygenation further. At the same time the thoracentesis will be diagnostic as well as therapeutic. Labs from today were all reviewed. Blood cultures are negative since admission. Patient herself seems to be quite comfortable, feeling better overall. Breathing a lot easier. Reevaluated today on 10/19/2018, patient is feeling better from the pulmonary perspective, however she is complaining of generalized weakness, and swelling in her lower extremities. She is now on oral amiodarone, off IV amiodarone. Her atrial fibrillation seems to be well controlled, and her O2 saturation is 95% on 5 L nasal cannula. Electrolytes are relatively normal except for elevated c reatinine of 1.15 today, hemoglobin is 8.5 hemoglobin is 11.7. No chest x-ray was done today, ultrasound of the chest failed to show significant right-sided pleural effusion to consider thoracentesis. Hence the findings are mostly findings of atelectasis in the right base. And the patient was advised to use more and more her incentive spirometer. And to do more deep coughing and deep breathing. Patient was reevaluated today on 10/20/2018. She is now on mechanical ventilation. Last night I was notified about this patient around midnight were and she was noted by the RN to have more shortness of breath, shallow breathing, tachypnea, and at one point she was struggling to breathe. Patient was also noted to be diaphoretic. At her mental status has changed. Patient was placed on BiPAP initially given a dose of Lasix, however she continued to go downhill. Then I recommended immediate intubation. And placement on mechanical ventilation. Follow-up chest x-ray showed worsening consolidation in the lower lobe especially in the right lower lobe and left lower lobe. Her ventilator s ettings today are tidal volume of 450 assist-control rate of 20 FiO2 of 50% and PEEP of 5. Patient is on propofol and she is also on norepinephrine at 9 mcg/m. ABG before intubation showed a pO2 of 268 pCO2 of 67 pH of 7.17 obviously that indicates hypercapnic respiratory failure. Her ABG this morning showed a pO2 of 75 pCO2 of 44 pH of 7.37. Her kidneys are showing slight worsening with creat inine up to 1.51. Electrolytes otherwise are normal. Patient is sedated and on propofol, chest x-ray was reviewed condition was discussed with her family at bedside. Also discussed with the dairy associate on the case. Patient was reevaluated today on 10/21/2018, remains on mechanical ventilation, b asically on the same ventilator settings, assist control rate of 20, volume of 450 FiO2 50% and PEEP of 5. Patient remains on propofol at 45 mcg/kg/m, presently off norepinephrine. Chest x-ray showed worsening airspace disease especially in the right lower lobe, hence I recommended bronchoscopy and bronchoalveolar lavage which was done today. Family was updated on her condition. Labs were all reviewed, ABG showed a pO2 of 84 pCO2 of 40 pH of 7.42. WBC count is 6.2 hemoglobin is 10.6 and a lites are normal however his creatinine is jumping up to 1.61. Sugars are running a bit low, hence the patient will be started today on enteral feeding via nasogastric tube. Patient remains on broad-spectrum antibiotics, remains on GI and DVT prophylaxis. Remains on Eliquis for her atrial fibrillation. Sputum cultures have been nondiagnostic so far. Bronchoalveolar lavage of the right lower lobe was performed today. Objective - Vital Signs Vital signs: Vital Signs Temp 98.6 F 10/21/18 12:00 Pulse 90 10/21/18 12:48 Resp 23 10/21/18 12:00 BP 109/66 10/21/18 12:00 Pulse Ox 94 L 10/21/18 12:00 Intake & Output 10/20/18 10/21/18 10/21/18 18:59 06:59 18:59 Intake Total 0239.778 7535.000 989.204 Output Total 1635 1040 275 Balance 214.772 235.000 714.204 Weight 97.5 kg 99.9 kg 99.9 kg Intake: IV 1140 975 545 Piperacillin-Tazobactam 3 75 75 .375 gm In Sodium Chloride 0.9% 100 ml @ 25 mls/hr IVPB Q8H [facility] Rx#: [id number] Sodium Chloride 0.9% 1, 1140 900 450 000 ml @ 75 mls/hr IV . [id number] [facility] Rx#:[id number] Intake, IV Titration 649.772 300.000 294.204 Amount Norepinephrine 4 mg In 454.453 149.977 Sodium Chloride 0.9% 250 ml @ 0.05 MCG/KG/MIN 17. 869 mls/hr IV .[id number] [facility] Rx#:[id number] Propofol 1,000 mg In 195.319 300.000 144.227 Empty Bag 1 bag @ Titrate IV .Q0M [facility] Rx#: [id number] Oral 60 Other 150 Output: Gastric Drainage 250 Urine 1385 840 275 Stool 200 Other: Voiding Method Indwelling Catheter Indwelling Catheter Indwelling Catheter # Voids 1 # Bowel Movements 1 - Exam Physical Exam: Revealed a 58-year-old female on mechanical ventilation, sedated, on propofol drip. Head: Atraumatic, normocephalic. HEENT:[Neck is supple.] [No neck masses.] [No thyromegaly.] [No JVD.]PERRLA, EOMI, no icterus. Throat is clear, endotracheal tube and orogastric tube are intact. Chest: [Diminished breath sound bilaterally no crackles or rhonchi or wheezes.. Symmetrical chest expansion. No chest wall tenderness] Cardiac Exam: Normal S1 and S2, regular rate and rhythm, no S3 gallop, no murmur. Abdomen: [Soft, nontender, no megaly, no rebound, no guarding, normal bowel sounds.] Extremities: [No clubbing, 1+ bipedal edema., no cyanosis.] Neurological Exam: [Cannot be assessed, patient is sedated, on propofol, CT of the brain done last night showed no evidence of acute process. Psychiatric: Cannot be assessed. Skin: No rashes. Lymphatics: No lymphadenopathy. - Labs CBC & Chem 7: 10/21/18 05:13 10/21/18 05:13 Labs: Abnormal Lab Results - Last 24 Hours (Table) 10/20/18 10/20/18 10/21/18 Range/Units 17:07 21:59 05:13 RBC (3.80-5.40) m/uL Hgb (11.4-16.0) gm/dL Hct (34.0-46.0) % ABG HCO3 (21-25) mmol/L ABG Total CO2 (19-24) mmol/L Chloride 110 H (98-107) mmol/L BUN 30 H (7-17) mg/dL Creatinine 1.61 H (0.52-1.04) mg/dL Glucose 72 L (74-99) mg/dL POC Glucose (mg/dL) 126 H 116 H (75-99) mg/dL Calcium 7.3 L (8.4-10.2) mg/dL AST 50 H (14-36) U/L Total Protein 4.5 L (6.3-8.2) g/dL Albumin 2.3 L (3.5-5.0) g/dL 10/21/18 10/21/18 10/21/18 Range/Units 05:13 05:36 07:15 RBC 3.72 L (3.80-5.40) m/uL Hgb 10.6 L (11.4-16.0) gm/dL Hct 32.8 L (34.0-46.0) % ABG HCO3 26 H (21-25) mmol/L ABG Total CO2 27 H (19-24) mmol/L Chloride (98-107) mmol/L BUN (7-17) mg/dL Creatinine (0.52-1.04) mg/dL Glucose (74-99) mg/dL POC Glucose (mg/dL) 71 L (75-99) mg/dL Calcium (8.4-10.2) mg/dL AST (14-36) U/L Total Protein (6.3-8.2) g/dL Albumin (3.5-5.0) g/dL Microbiology - Last 24 Hours (Table) 10/20/18 00:10 Gram Stain - Preliminary Sputum Sputum Culture - Preliminary Assessment and Plan Assessment: impression: 1 acute hypoxic and hypercapnic respiratory failure secondary to acute bilateral pneumonia, required intubation and mechanical ventilation on 10/19/2018. 2 acute sepsis secondary to pneumonia, with hypotension, which could be related to sepsis could also be related to hypovolemia. Patient did receive multiple doses of Lasix. On low-dose norepinephrine intermittently. Hence the patient will be given fluids, 3: Acute hypotension, could be related to sepsis/septic shock, however I feel the hypertension is mostly hypovolemic in nature, although sepsis and septic shock are in the picture. But felt to be less likely. 4 history of diabetes type 2 5 history of asthma patient is maintained on bronchodilators on outpatient, basIs, presently inactive 6 acute hypoxic respiratory failure secondary to extensive pneumonia involving both lungs. 7 right-sided pleural effusion, was not seen to be significant on ultrasound, hence no plans to do thoracentesis. Recommendation: Ventilatory support, nutritional support, start enteral feeding, hemodynamic support, use Norepinephrine as needed, cautious hydration, continue bronchodilators, GI and DVT prophylaxis, continue antibiotics, family was updated on her condition, consent was obtained today for bronchoscopy and bronch oalveolar lavage which was done earlier today, results of which are pending. Patient was noted to have some purulent secretions in the right lower lobe and right upper lobe these were lavaged and suctioned. Obviously the patient remains quite ill, we will continue to follow closely. Critical care time is 40 minutes, not including the time spent on bronchoscopy/procedures. Time with Patient: Greater than 30
--- NOTE | 2018-10-21 15:35 | P.PN ---
Subjective Progress Note Date: 10/21/18 This 58-year-old female has a recurrence of atrial fibrillation but rate seems to be controlled. Patient is on IV Cardizem and also metoprolol. I'm going to discontinue IV Cardizem and start her on IV amiodarone with the hope of maintaining sinus rhythm. Patient otherwise denies any chest pain. Continues to have shortness of breath and cough. Being treated for pneumonia. Further recommendations depend upon clinical course. 10/19/2018: This patient is still in atrial fibrillation with controlled ventricular response Being continued for with antibiotic therapy for pneumonia. Patient developed edema of the legs and is being treated with IV Lasix. 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 Patient will continue with amiodarone as an outpatient. Follow-up in the office in one week after discharge. 10/20/2018: This patient developed respiratory difficulties and developed acidosis and hypercapnia. Patient needed intubation. Patient was also given some IV Lasix. She is on antibiotics for pneumonia. Her chest x-ray shows bilateral consolidation. Being seen by infectious disease specialist. She is back in sinus rhythm. Her echo showed normal LV function. We'll continue with current medical therapy. 10/21/2018: This patient remains intubated and sedated. Chest x-ray showed wo rsening infiltrate on the right side. Patient had a bronchoscopy. She is back in atrial fibrillation with controlled ventricular response. She is on amiodarone and also anticoagulation therapy and also on beta waldo. Patient is on antibiotic therapy. ID also is consulted. We'll stay with current medical therapy for atrial fibrillation Objective - Vital Signs Vital signs: Vital Signs Temp 98.6 F 10/21/18 12:00 Pulse 89 10/21/18 15:00 Resp 21 10/21/18 15:00 BP 103/60 10/21/18 15:00 Pulse Ox 96 10/21/18 15:00 Intake & Output 10/20/18 10/21/18 10/21/18 18:59 06:59 18:59 Intake Total 4776.694 6802.000 1289.204 Output Total 1635 1040 455 Balance 214.772 235.000 834.204 Weight 97.5 kg 99.9 kg 99.9 kg Intake: IV 1140 975 845 Piperacillin-Tazobactam 3 75 150 .375 gm In Sodium Chloride 0.9% 100 ml @ 25 mls/hr IVPB Q8H [facility] Rx#: [id number] Sodium Chloride 0.9% 1, 1140 900 675 000 ml @ 75 mls/hr IV . [id number] [facility] Rx#:[id number] Intake, IV Titration 649.772 300.000 294.204 Amount Norepinephrine 4 mg In 454.453 149.977 Sodium Chloride 0.9% 250 ml @ 0.05 MCG/KG/MIN 17. 869 mls/hr IV .[id number] [facility] Rx#:[id number] Propofol 1,000 mg In 195.319 300.000 144.227 Empty Bag 1 bag @ Titrate IV .Q0M [facility] Rx#: [id number] Oral 60 Other 150 Output: Gastric Drainage 250 Urine 1385 840 455 Stool 200 Other: Voiding Method Indwelling Catheter Indwelling Catheter Indwelling Catheter # Voids 1 # Bowel Movements 1 - Exam GENERAL EXAM: Patient is intubated and sedated HEENT: Normocephalic. Normal reaction of pupils, equal size, normal range of extraocular motion. No erythema or exudates in the throat. NECK: No masses, no nuchal rigidity. CHEST: No chest wall deformity. LUNGS: Diminished air entry HEART: S1 and S2 normal with no audible mumurs or gallops. Regular rhythm, femorals equal on both sides.. ABDOMEN: No hepatosplenomegaly, normal bowel sounds, no guarding or rigidity. SKIN: No rashes CENTRAL NERVOUS SYSTEM: No focal deficits. EXTREMITIES: No cyanosis, clubbing or edema. - Labs CBC & Chem 7: 10/21/18 05:13 10/21/18 05:13 Labs: Abnormal Lab Results - Last 24 Hours (Table) 10/20/18 10/20/18 10/21/18 Range/Units 17:07 21:59 05:13 RBC (3.80-5.40) m/uL Hgb (11.4-16.0) gm/dL Hct (34.0-46.0) % ABG HCO3 (21-25) mmol/L ABG Total CO2 (19-24) mmol/L Chloride 110 H (98-107) mmol/L BUN 30 H (7-17) mg/dL Creatinine 1.61 H (0.52-1.04) mg/dL Glucose 72 L (74-99) mg/dL POC Glucose (mg/dL) 126 H 116 H (75-99) mg/dL Calcium 7.3 L (8.4-10.2) mg/dL AST 50 H (14-36) U/L Total Protein 4.5 L (6.3-8.2) g/dL Albumin 2.3 L (3.5-5.0) g/dL 10/21/18 10/21/18 10/21/18 Range/Units 05:13 05:36 07:15 RBC 3.72 L (3.80-5.40) m/uL Hgb 10.6 L (11.4-16.0) gm/dL Hct 32.8 L (34.0-46.0) % ABG HCO3 26 H (21-25) mmol/L ABG Total CO2 27 H (19-24) mmol/L Chloride (98-107) mmol/L BUN (7-17) mg/dL Creatinine (0.52-1.04) mg/dL Glucose (74-99) mg/dL POC Glucose (mg/dL) 71 L (75-99) mg/dL Calcium (8.4-10.2) mg/dL AST (14-36) U/L Total Protein (6.3-8.2) g/dL Albumin (3.5-5.0) g/dL Microbiology - Last 24 Hours (Table) 10/20/18 00:10 Gram Stain - Preliminary Sputum Sputum Culture - Preliminary Assessment and Plan (1) Essential hypertension Current Visit: Yes Status: Acute Code(s): I10 - ESSENTIAL (PRIMARY) HYPERTENSION SNOMED Code(s): 24738983 (2) Bilateral pneumonia Current Visit: Yes Status: Acute Code(s): J18.9 - PNEUMONIA, UNSPECIFIED ORGANISM SNOMED Code(s): 848241108 (3) Paroxysmal atrial fibrillation with rapid ventricular response Current Visit: Yes Status: Acute Code(s): I48.0 - PAROXYSMAL ATRIAL FIBRILLATION SNOMED Code(s): 996255210 (4) Sepsis Current Visit: Yes Status: Acute Code(s): A41.9 - SEPSIS, UNSPECIFIED ORGANISM SNOMED Code(s): 45044269 Plan: Patient is back in atrial fibrillation but controlled ventricular response. We'll continue beta waldo and amiodarone and also anticoagulation therapy. Rest of the management as per the quality control tester.
[2018-10-21 15:52] LABS: Appearance,BF Cloudy; Color,BF Colorless; Nucleated Cells, Body Fluid 515 /uL; RBC, Body Fluid 730 /uL
[2018-10-21 16:16] LABS: Mononuclear WBC,Body Fluid 80 %; Polynuclear WBC,Body Fluid 20 %; Total Cells Counted,Body Fluid 100
[2018-10-21 18:41] LABS: Glucose,Whole Blood 137 mg/dL (75-99)
[2018-10-21] MEDS: MONTELUKAST 10 MG TAB PO SCH (20:11)
[2018-10-21] MEDS: PANTOPRAZOLE 40 MG/10 ML VIAL IVP SCH (20:11)
[2018-10-21] MEDS: SERTRALINE 50 MG TAB PO SCH (20:11)
[2018-10-21] MEDS: ATORVASTATIN 40 MG TAB PO SCH (20:11)
[2018-10-21 20:20] LABS: Glucose,Whole Blood 144 mg/dL (75-99)
[2018-10-21] MEDS: INSULIN DETEMIR (LEVEMIR) 100 UNIT/ML SYR SQ SCH (20:26)
[2018-10-21 20:49] LABS: Glucose,Whole Blood 154 mg/dL (75-99)
[2018-10-21] MEDS: NOREPINEPHRINE 4 MG in SODIUM CHLORIDE 0.9% 250 ML IV SCH (21:36)
[2018-10-21 23:36] LABS: Glucose,Whole Blood 134 mg/dL (75-99)
--- NOTE | 2018-10-21 23:40 | P.PN ---
Subjective Progress Note Date: 10/21/18 58 -year-old female with history of diabetes mellitus type 2 generally is completely independent relates to approximate 4 day history of feeling poorly. She started to feel fever chills generalized malaise cough with yellowish sputum production and no hemoptysis. Her fever increased she felt w eak and confused and was brought to the emergency center. There she has not evidence of a high-grade fever leukocytosis and sepsis as well as atrial fibrillation, she was treated with a dose of Cardizem with hydration and resolution of her A. fib. The patient continued to feel ill continue to have ongoing fevers because of the consult was requested. At the time of the consult antibiotic therapy was altered and anti-inflammatory with Toradol was requested and the patient is feeling considerably better today. After the first dorsal Toradol her sugar went from 103.5-99.5. The highest it's been so far today is 101.5. Patient does feel poorly still. She has shortness of breath or oxygen therapy she has cough without much sputum production or hemoptysis does have discomfort in her chest with coughing. 10/17/2018 the patient had significant worsening of her status overnight. She developed atrial fibrillation with a rapid ventricular response and was brought to the intensive care unit has been treated with Cardizem and amiodarone. She has had an improvement of her cardiac dysrhythmia and is somewhat less short of breath. She had further fever which is now much improved since her transfer to the intensive care unit. She relates she still feels poorly but better than last night. She is not having chest pain. No chills or rigors are occurring at this time. 10/18/2018 patient is now feeling somewhat better. She is much less short of breath. Fevers have resolved. Cardiac dysrhythmia has improved. Leukocytosis is also improving. 10/19/2018 has further improvement. She is however quite sleepy today. Atrial fibrillation is improved. Leukocytosis improving. Appetite still somewhat poor and other than fatigue has improved. 10/20/2018 the patient now has a significant worsening of her status. She really developed respiratory failure last evening her current intubation sedation mechanical ventilation in addition of vasopressor therapy. She's been seen by pulmonary critical care. Her significant cardiac dysrhythmia does seem to be more stable at this time. Oxygenation is improved. Renal failure has worsened. 10/21/2018 the patient has had little change in her status. However bronchoscopy has been performed for further treatment and diagnosis of her pneumonia and respiratory failure. She tolerated the procedure well only 2 changes are of renal failure vancomycin has been discontinued at this time pending further culture results. She's had one further fever overnight of 101.1 better today. Leukocytosis is improving. No other new acute changes Objective - Vital Signs Vital signs: Vital Signs Temp 99.3 F 10/21/18 20:00 Pulse 81 10/21/18 23:00 Resp 22 10/21/18 23:00 BP 118/63 10/21/18 23:00 Pulse Ox 93 L 10/21/18 23:00 Intake & Output 10/21/18 10/21/18 10/22/18 06:59 18:59 06:59 Intake Total 2247.740 1201.334 641.653 Output Total 1040 640 295 Balance 896.423 7602.334 346.653 Weight 99.9 kg 99.9 kg Intake: IV 975 1095 375 Piperacillin-Tazobactam 3 75 175 .375 gm In Sodium Chloride 0.9% 100 ml @ 25 mls/hr IVPB Q8H [facility] Rx#: [id number] Sodium Chloride 0.9% 1, 900 900 375 000 ml @ 75 mls/hr IV . [id number] [facility] Rx#:[id number] Intake, IV Titration 300.000 420.334 196.653 Amount Norepinephrine 4 mg In 208.526 Sodium Chloride 0.9% 250 ml @ 0.05 MCG/KG/MIN 17. 869 mls/hr IV .[id number] [facility] Rx#:[id number] Propofol 1,000 mg In 300.000 211.808 196.653 Empty Bag 1 bag @ Titrate IV .Q0M [facility] Rx#: [id number] Tube Feeding 40 Other 150 30 Output: Urine 840 640 295 Stool 200 Other: Voiding Method Indwelling Catheter Indwelling Catheter Indwelling Catheter # Bowel Movements 1 1 - Exam 58 -year-old woman, she is now intubated sedated and mechanically ventilated on vasopressor therapy HEENT: Anicteric conjunctiva are pink and moist nasal mucosa grossly intact without significant lesions, there is no thrush. Neck: The neck is supple without significant lymphadenopathy or thyromegaly. Lungs: Symmetrical bilateral air entry,there is some evidence of air entry with some crackles noted a few crackles at the right posterior mid zone, posterior left lower zone also with crackles no distinct egophony nor dullness in either area some expiratory wheezes are scattered Heart: Rhythm is regular with an audible S1-S2, no S3 no S4. There is no significant murmur click or rub, PMI was nondisplaced. Abdomen: Obese, Positive bowel sounds soft and nontender without palpable masses or organomegaly. There was no guarding or rebound. Extremities: The upper extremities have excellent pulses they are symmetric, no significant petechiae or telangiectasia. No splinter hemorrhages were noted. His also lower extremity edema no open ulcerations Neuro: She is sedated and mechanically ventilated - Labs CBC & Chem 7: 10/21/18 05:13 10/21/18 05:13 Labs: Abnormal Lab Results - Last 24 Hours (Table) 10/21/18 10/21/18 10/21/18 Range/Units 05:13 05:13 05:36 RBC 3.72 L (3.80-5.40) m/uL Hgb 10.6 L (11.4-16.0) gm/dL Hct 32.8 L (34.0-46.0) % ABG HCO3 (21-25) mmol/L ABG Total CO2 (19-24) mmol/L Chloride 110 H (98-107) mmol/L BUN 30 H (7-17) mg/dL Creatinine 1.61 H (0.52-1.04) mg/dL Glucose 72 L (74-99) mg/dL POC Glucose (mg/dL) 71 L (75-99) mg/dL Calcium 7.3 L (8.4-10.2) mg/dL AST 50 H (14-36) U/L Total Protein 4.5 L (6.3-8.2) g/dL Albumin 2.3 L (3.5-5.0) g/dL 10/21/18 10/21/18 10/21/18 Range/Units 07:15 18:39 20:19 RBC (3.80-5.40) m/uL Hgb (11.4-16.0) gm/dL Hct (34.0-46.0) % ABG HCO3 26 H (21-25) mmol/L ABG Total CO2 27 H (19-24) mmol/L Chloride (98-107) mmol/L BUN (7-17) mg/dL Creatinine (0.52-1.04) mg/dL Glucose (74-99) mg/dL POC Glucose (mg/dL) 137 H 144 H (75-99) mg/dL Calcium (8.4-10.2) mg/dL AST (14-36) U/L Total Protein (6.3-8.2) g/dL Albumin (3.5-5.0) g/dL 10/21/18 10/21/18 Range/Units 20:48 23:34 RBC (3.80-5.40) m/uL Hgb (11.4-16.0) gm/dL Hct (34.0-46.0) % ABG HCO3 (21-25) mmol/L ABG Total CO2 (19-24) mmol/L Chloride (98-107) mmol/L BUN (7-17) mg/dL Creatinine (0.52-1.04) mg/dL Glucose (74-99) mg/dL POC Glucose (mg/dL) 154 H 134 H (75-99) mg/dL Calcium (8.4-10.2) mg/dL AST (14-36) U/L Total Protein (6.3-8.2) g/dL Albumin (3.5-5.0) g/dL Microbiology - Last 24 Hours (Table) 10/21/18 13:00 Fungal Culture - Preliminary Bronchial Washings - Left 10/21/18 13:00 Bronchial Washings Culture - Preliminary Bronchial Washings - Left 10/21/18 13:00 Acid Fast Bacilli Culture - Preliminary Bronchial Washings - Left 10/20/18 00:10 Gram Stain - Preliminary Sputum Sputum Culture - Preliminary Laboratory Results WBC 6.4 k/uL (3.8-10.6) 10/21/18 05:13 RBC 3.72 m/uL (3.80-5.40) L 10/21/18 05:13 Hgb 10.6 gm/dL (11.4-16.0) L 10/21/18 05:13 Hct 32.8 % (34.0-46.0) L 10/21/18 05:13 MCV 88.2 fL (80.0-100.0) 10/21/18 05:13 MCH 28.6 pg (25.0-35.0) 10/21/18 05:13 MCHC 32.4 g/dL (31.0-37.0) 10/21/18 05:13 RDW 14.4 % (11.5-15.5) 10/21/18 05:13 Plt Count 346 k/uL (150-450) 10/21/18 05:13 Neutrophils % 78 % 10/16/18 09:11 Lymphocytes % 17 % 10/16/18 09:11 Monocytes % 3 % 10/16/18 09:11 Eosinophils % 0 % 10/16/18 09:11 Basophils % 0 % 10/16/18 09:11 Neutrophils # 4.9 k/uL (1.3-7.7) 10/16/18 09:11 Lymphocytes # 1.1 k/uL (1.0-4.8) 10/16/18 09:11 Monocytes # 0.2 k/uL (0-1.0) 10/16/18 09:11 Eosinophils # 0.0 k/uL (0-0.7) 10/16/18 09:11 Basophils # 0.0 k/uL (0-0.2) 10/16/18 09:11 Hypochromasia Slight 10/20/18 05:58 PT 10.5 sec (9.0-12.0) 10/13/18 23:47 INR 1.0 (<1.2) 10/13/18 23:47 APTT 28.8 sec (22.0-30.0) 10/13/18 23:47 Sample Site LRAD 10/21/18 07:15 ABG pH 7.42 (7.35-7.45) 10/21/18 07:15 ABG pCO2 40 mmHg (35-45) 10/21/18 07:15 ABG pO2 84 mmHg (83-108) 10/21/18 07:15 ABG HCO3 26 mmol/L (21-25) H 10/21/18 07:15 ABG Total CO2 27 mmol/L (19-24) H 10/21/18 07:15 ABG O2 Saturation 96.7 % (94-97) 10/21/18 07:15 ABG Base Excess 1.2 mmol/L 10/21/18 07:15 Maxime Test Yes 10/21/18 07:15 FiO2 50 % 10/21/18 07:15 Sodium 138 mmol/L (137-145) 10/21/18 05:13 Potassium 4.2 mmol/L (3.5-5.1) 10/21/18 05:13 Chloride 110 mmol/L (98-107) H 10/21/18 05:13 Carbon Dioxide 24 mmol/L (22-30) 10/21/18 05:13 Anion Gap 4 mmol/L 10/21/18 05:13 BUN 30 mg/dL (7-17) H 10/21/18 05:13 Creatinine 1.61 mg/dL (0.52-1.04) H 10/21/18 05:13 Est GFR (CKD-EPI)AfAm 40 (>60 ml/min/1.73 sqM) 10/21/18 05:13 Est GFR (CKD-EPI)NonAf 35 (>60 ml/min/1.73 sqM) 10/21/18 05:13 Glucose 72 mg/dL (74-99) L 10/21/18 05:13 POC Glucose (mg/dL) 134 mg/dL (75-99) H 10/21/18 23:34 POC Glu [place] BRIANDA Jillian Obando 10/21/18 23:[address] Glu mg/dL 186 10/15/18 06:32 Hemoglobin A1c 8.1 % (4.0-6.0) H 10/15/18 06:32 Plasma Lactic Acid Bola 0.8 mmol/L (0.7-2.0) 10/16/18 16:53 Calcium 7.3 mg/dL (8.4-10.2) L 10/21/18 05:13 Magnesium 2.6 mg/dL (1.6-2.3) H 10/17/18 08:05 Total Bilirubin 0.3 mg/dL (0.2-1.3) 10/21/18 05:13 AST 50 U/L (14-36) H 10/21/18 05:13 ALT 44 U/L (9-52) 10/21/18 05:13 Alkaline Phosphatase 57 U/L (38-126) 10/21/18 05:13 NT-Pro-B Natriuret Pep 256 pg/mL 10/15/18 06:32 Total Protein 4.5 g/dL (6.3-8.2) L 10/21/18 05:13 Albumin 2.3 g/dL (3.5-5.0) L 10/21/18 05:13 Amylase 83 U/L (30-110) 10/20/18 06:04 Lipase 190 U/L (23-300) 10/20/18 06:04 Urine Color Light Yellow 10/20/18 01:00 Urine Appearance Cloudy (Clear) H 10/20/18 01:00 Urine pH 5.5 (5.0-8.0) 10/20/18 01:00 Ur Specific Phenix 1.011 (1.001-1.035) 10/20/18 01:00 Urine Protein 1+ (Negative) H 10/20/18 01:00 Urine Glucose (UA) Negative (Negative) 10/20/18 01:00 Urine Ketones Negative (Negative) 10/20/18 01:00 Urine Blood Small (Negative) H 10/20/18 01:00 Urine Nitrite Negative (Negative) 10/20/18 01:00 Urine Bilirubin Negative (Negative) 10/20/18 01:00 Urine Urobilinogen <2.0 mg/dL (<2.0) 10/20/18 01:00 Ur Leukocyte Esterase Negative (Negative) 10/20/18 01:00 Urine RBC 3 /hpf (0-5) 10/20/18 01:00 Urine WBC 1 /hpf (0-5) 10/20/18 01:00 Ur Squamous Epith Cells <1 /hpf (0-4) 10/20/18 01:00 Amorphous Sediment Occasional /hpf (None) H 10/20/18 01:00 Urine Bacteria Rare /hpf (None) H 10/13/18 18:06 Urine Mucus Rare /hpf (None) H 10/20/18 01:00 Fluid Source Bronchial Wash 10/21/18 13:00 Fluid Color Colorless 10/21/18 13:00 Fluid Appearance Cloudy 10/21/18 13:00 Fluid RBC 730 /uL 10/21/18 13:00 Fluid Nucleated Cells 515 /uL 10/21/18 13:00 Fluid Polynuclear WBCs 20 % 10/21/18 13:00 Fluid Mononuclear WBCs 80 % 10/21/18 13:00 Vancomycin Trough 24.7 ug/mL 10/20/18 06:04 Random Vancomycin 17.9 ug/mL 10/21/18 05:13 C. difficile (EIA) Intrp Negative (Negative) 10/14/18 19:48 Urine Legionella Ag Not detected (Not detected) 10/16/18 20:00 Microbiology 10/21/18 13:00 Bronchial Washings - Left Fungal Culture - Preliminary 10/21/18 13:00 Bronchial Washings - Left Bronchial Washings Culture - Preliminary 10/21/18 13:00 Bronchial Washings - Left Acid Fast Bacilli Culture - Preliminary 10/20/18 00:10 Sputum Gram Stain - Preliminary 10/20/18 00:10 Sputum Sputum Culture - Preliminary 10/18/18 08:20 Sputum Gram Stain - Final 10/18/18 08:20 Sputum Sputum Culture - Final Aminta albicans 10/13/18 23:47 Blood Blood Culture - Final No Growth after 144 hours 10/13/18 18:06 Urine,Voided Urine Culture - Final Assessment and Plan (1) Paroxysmal atrial fibrillation with rapid ventricular response Current Visit: Yes Status: Acute Code(s): I48.0 - PAROXYSMAL ATRIAL FIBRILLATION SNOMED Code(s): 270879656 (2) Bilateral pneumonia Narrative/Plan: 58-year-old female presents to hospital with a several-day history of increasing illness this is high-grade fever chills or malaise and cough without much sputum production. There is evidence of pneumonia minimally by chest x-ray the patient was remaining very ill with fevers of 103 despite antibiotic therapy. A consult was requested and at that time antibiotic therapy was altered to cover for gram negatives including Pseudomonas as well as resistant gram-positive pathogen such as MRSA and vancomycin was added. For fever Toradol was added given the normal renal function and there is no evidence of improvement of how the patient is feeling with this. Fevers have trended to improvement. Will allow further doses of Toradol Renal function to be followed The patient is requiring oxygen therapy and this is being monitored also. Blood glucoses are being monitored. Leukocytosis is trending to improvement Diarrhea did occur and C. diff testing was negative. Lomotil be requested to improve some diarrhea patient encouraged to utilize yogurt with meals. 10/17/2018 is noted the patient had acute worsening of her status with recurrent fever to 103 with the development of atrial fibrillation with rapid ventricular response and transferred to intensive care unit. She's been seen by pulmonary critical care. If there is no further improvement will consider bronchoscopy. Her fever has now resolved and she feels just minimally better. Does complain of a significant oral discomfort cool solution requested 10/18/2018 he shouldn't is improved today. She is less short of breath. The subdural discomfort is improved and has done well with the cool solution. She is eating today. There is no further fever or chills Pruritic chest discomforts have improved She is starting to mobilize some secretions which has helped her shortness of breath. Appetite poor but she is eating without difficulty Continue current antibiotic therapy, no plans for bronchoscopy at this time 10/19/2018 patient has had some further improvement. She is less short of breath. She is on less oxygen. She's having no further fevers. Mobilizing secretions better. Appetite is adequate. Leukocytosis is improving. She had an increase of her creatinine to 1.15 and ketorolac has been discontinued. Vancomycin levels being monitored closely regarding the treatment of her extensive pneumonia. 10/20/2018 is noted the patient is now had worsening of her status with respiratory failure requiring intubation sedation and mechanical ventilation. She is being followed by pulmonary critical care, with her marked alteration is status bronchoscopy would be helpful for further deep specimens giving all the negative culture so far. Given the lack of any positive blood cultures and no evidence of any resistant gram-positive pathogens, and with the increasing creatinine we'll discontinue vancomycin at this point in time and monitor. 10/21/2018 patient remains intubated state and mechanically ventilated however is now had bronchoscopy performed. Hopefully will have in addition to therapeutic response a diagnostic response which will further help course of therapy. Creatinine is up to 1.61 vancomycin was discontinued yesterday. We'll monitor cultures for any further needs. Legionella was negative. Current Visit: Yes Status: Acute Code(s): J18.9 - PNEUMONIA, UNSPECIFIED ORGANISM SNOMED Code(s): 956658886 (3) Fever Current Visit: Yes Status: Acute Code(s): R50.9 - FEVER, UNSPECIFIED SNOMED Code(s): 013373128 (4) Leukocytosis Current Visit: Yes Status: Acute Code(s): D72.829 - ELEVATED WHITE BLOOD CELL COUNT, UNSPECIFIED SNOMED Code(s): 133848188
--- NOTE | 2018-10-22 01:50 | PCN ---
PROCEDURE NOTE OPERATIVE REPORT: Bronchoscopy and bronchoalveolar lavage of the right lower lobe. PREOPERATIVE DIAGNOSES: Extensive right lower lobe pneumonia and respiratory failure. POSTOPERATIVE DIAGNOSES: Extensive right lower lobe pneumonia and respiratory failure. ANESTHESIA: The patient was already on propofol drip at 45 mcg/kg per minute, and the dose was increased to 75 mcg/kg per minute before the procedure. PROCEDURE DETAILS: Patient was placed in the supine position, she was already on mechanical ventilation, and we were already monitoring her blood pressure continuously, cardiac rhythm was monitored continuously, and blood pressure and cardiac and O2 saturation was monitored continuously. Then, the endotracheal tube was connected via adapter to the mechanical ventilator. Through the adapter, I inserted the bronchoscope, and went all the way down to the distal end of the endotracheal tube, which was about 3 cm above the eliud. Thorough examination was done of the eliud, right upper lobe, right middle lobe, right lower lobe, left upper lobe lingula and left lower lobe. There was clearly evidence of purulent secretions mostly in the right lower lobe, minimal in the right middle lobe, and also minimal amount of purulent secretions in the right upper lobe. The right lower lobe was lavaged, and the secretions from the right middle lobe were also suctioned. The right upper lobe was also suctioned. Then, we moved to the left side, thorough examination was done on the left side, very minimal secretions noted in the left lower lobe. These were suctioned. The fluid was sent for different diagnostic studies, specifically the lavage from the right lower lobe was sent for different diagnostic studies including cultures. The procedure was well tolerated and no evidence of any immediate complications. The family was updated on her condition after the procedure. MMODL / IJN: [id number] /
[2018-10-22] MEDS: PROPOFOL 1,000 MG in EMPTY BAG 1 BAG IV SCH ×6 (02:24→21:26)
[2018-10-22 05:04] LABS: HCT 34.5 % (34.0-46.0); HGB 10.5 gm/dL (11.4-16.0); Hypochromasia Moderate; MCH 28.4 pg (25.0-35.0); MCHC 30.5 g/dL (31.0-37.0); Mean Platelet Volume 6.9; Platelet Count 397 k/uL (150-450); RBC 3.71 m/uL (3.80-5.40); RDW 14.5 % (11.5-15.5); WBC 6.3 k/uL (3.8-10.6)
[2018-10-22 05:30] LABS: Glucose,Whole Blood 118 mg/dL (75-99)
[2018-10-22] MEDS: INSULIN ASPART (NovoLOG) 100 UNIT/ML VIAL SQ SCH ×4 (05:33→23:36)
[2018-10-22] MEDS: PIPERACILLIN-TAZOBACTAM 3.375 GM in SODIUM CHLORIDE 0.9% 100 ML IVPB SCH ×3 (05:33→20:19)
[2018-10-22 05:43] LABS: Albumin 2.3 g/dL (3.5-5.0); Calcium 7.6 mg/dL (8.4-10.2); Potassium 4.4 mmol/L (3.5-5.1); Total Bilirubin 0.3 mg/dL (0.2-1.3); Total Protein 4.6 g/dL (6.3-8.2)
--- NOTE | 2018-10-22 06:20 | XR ---
EXAMINATION TYPE: XR chest 1V portable DATE OF EXAM: 10/22/2018 HISTORY: Tube placement. REFERENCE: Previous study dated 10/21/2018. FINDINGS: The patient is ET tube and NG tube remain in place, unchanged in appearance. There is diffuse opacification of the right lower lung. There is left basilar airspace disease. Heart size is obscured. IMPRESSION: NO SIGNIFICANT INTERVAL CHANGE IN THE APPEARANCE THE CHEST.
[2018-10-22] MEDS: PANTOPRAZOLE 40 MG/10 ML VIAL IVP SCH ×2 (06:47→19:58)
[2018-10-22] MEDS: POTASSIUM BICARBONATE/CIT AC 20 MEQ TABLET.EFF PO SCH (06:47)
[2018-10-22] MEDS: CHLORHEXIDINE GLUCONATE 15 ML CUP MUCOUS MEM SCH ×2 (06:47→19:58)
[2018-10-22] MEDS: AMIODARONE 200 MG TAB PO SCH ×2 (06:48→19:57)
[2018-10-22] MEDS: predniSONE 20 MG TAB PO SCH (06:48)
[2018-10-22] MEDS: MAGNESIUM OXIDE 400 MG TAB PO SCH (06:48)
[2018-10-22] MEDS: METOPROLOL TARTRATE 25 MG TAB PO SCH ×2 (06:48→19:57)
[2018-10-22] MEDS: MAG HYDROX/AL HYDROX/SIMETH 30 ML, LIDOCAINE VISCOUS 30 ML, NYSTATIN 100,000 UNIT/ML SU... PO SCH ×12 (06:48→19:59)
[2018-10-22] MEDS: SODIUM CHLORIDE 0.9% 1,000 ML IV SCH ×2 (07:10→20:00)
[2018-10-22 07:43] LABS: ABG HCO3 26 mmol/L (21-25); ABG Oxygen Saturation 93.5 % (94-97); ABG PCO2 46 mmHg (35-45); ABG PH 7.35 (7.35-7.45); ABG PO2 72 mmHg (83-108); ABG TCO2 27 mmol/L (19-24); Allen Test Performed? Yes
--- NOTE | 2018-10-22 08:21 | P.PN ---
Subjective Progress Note Date: 10/22/18 Seen and examined for the follow-up of acute kidney injury. Still on ventilators with minimum settings. Off levo fed. 1250 ML's of urine output in the last 24 hours. Urine looks pink/bloody. Still on 0.9 at 75 ML's an hour. Objective - Vital Signs Vital signs: Vital Signs Temp 99 F 10/22/18 08:00 Pulse 69 10/22/18 08:00 Resp 25 H 10/22/18 08:00 BP 97/53 10/22/18 08:00 Pulse Ox 91 L 10/22/18 08:00 Intake & Output 10/21/18 10/22/18 10/22/18 18:59 06:59 18:59 Intake Total 0265.331 4450.188 220 Output Total 640 655 100 Balance 1025.334 866.188 120 Weight 99.9 kg Intake: IV 1095 900 150 Piperacillin-Tazobactam 3 175 .375 gm In Sodium Chloride 0.9% 100 ml @ 25 mls/hr IVPB Q8H [facility] Rx#: [id number] Sodium Chloride 0.9% 1, 900 900 150 000 ml @ 75 mls/hr IV . [id number] [facility] Rx#:[id number] Intake, IV Titration 420.334 361.188 Amount Norepinephrine 4 mg In 208.526 Sodium Chloride 0.9% 250 ml @ 0.05 MCG/KG/MIN 17. 869 mls/hr IV .[id number] [facility] Rx#:[id number] Propofol 1,000 mg In 211.808 361.188 Empty Bag 1 bag @ Titrate IV .Q0M [facility] Rx#: [id number] Tube Feeding 170 40 Other 150 90 30 Output: Urine 640 655 100 Other: Voiding Method Indwelling Catheter Indwelling Catheter # Bowel Movements 1 1 - Exam No acute distress, on ventilator S1-S2 heard Bilateral air entry Alvarez catheter with pinkish urine Edema - Labs CBC & Chem 7: 10/22/18 04:55 10/22/18 04:55 Labs: Abnormal Lab Results - Last 24 Hours (Table) 10/21/18 10/21/18 10/21/18 Range/Units 18:39 20:19 20:48 RBC (3.80-5.40) m/uL Hgb (11.4-16.0) gm/dL MCHC (31.0-37.0) g/dL ABG pCO2 (35-45) mmHg ABG pO2 (83-108) mmHg ABG HCO3 (21-25) mmol/L ABG Total CO2 (19-24) mmol/L ABG O2 Saturation (94-97) % Chloride (98-107) mmol/L BUN (7-17) mg/dL Creatinine (0.52-1.04) mg/dL Glucose (74-99) mg/dL POC Glucose (mg/dL) 137 H 144 H 154 H (75-99) mg/dL Calcium (8.4-10.2) mg/dL AST (14-36) U/L Total Protein (6.3-8.2) g/dL Albumin (3.5-5.0) g/dL Stool Occult Blood (Negative) 10/21/18 10/21/18 10/22/18 Range/Units 23:34 23:34 04:55 RBC (3.80-5.40) m/uL Hgb (11.4-16.0) gm/dL MCHC (31.0-37.0) g/dL ABG pCO2 (35-45) mmHg ABG pO2 (83-108) mmHg ABG HCO3 (21-25) mmol/L ABG Total CO2 (19-24) mmol/L ABG O2 Saturation (94-97) % Chloride 112 H (98-107) mmol/L BUN 31 H (7-17) mg/dL Creatinine 1.60 H (0.52-1.04) mg/dL Glucose 114 H (74-99) mg/dL POC Glucose (mg/dL) 134 H (75-99) mg/dL Calcium 7.6 L (8.4-10.2) mg/dL AST 37 H (14-36) U/L Total Protein 4.6 L (6.3-8.2) g/dL Albumin 2.3 L (3.5-5.0) g/dL Stool Occult Blood Positive H (Negative) 10/22/18 10/22/18 10/22/18 Range/Units 04:55 05:29 07:40 RBC 3.71 L (3.80-5.40) m/uL Hgb 10.5 L (11.4-16.0) gm/dL MCHC 30.5 L (31.0-37.0) g/dL ABG pCO2 46 H (35-45) mmHg ABG pO2 72 L (83-108) mmHg ABG HCO3 26 H (21-25) mmol/L ABG Total CO2 27 H (19-24) mmol/L ABG O2 Saturation 93.5 L (94-97) % Chloride (98-107) mmol/L BUN (7-17) mg/dL Creatinine (0.52-1.04) mg/dL Glucose (74-99) mg/dL POC Glucose (mg/dL) 118 H (75-99) mg/dL Calcium (8.4-10.2) mg/dL AST (14-36) U/L Total Protein (6.3-8.2) g/dL Albumin (3.5-5.0) g/dL Stool Occult Blood (Negative) Microbiology - Last 24 Hours (Table) 10/21/18 13:00 Acid Fast Bacilli Smear - Final Bronchial Washings - Left Acid Fast Bacilli Culture - Preliminary 10/21/18 13:00 Gram Stain - Preliminary Bronchial Washings - Left Bronchial Washings Culture - Preliminary 10/21/18 13:00 Fungal Culture - Preliminary Bronchial Washings - Left 10/20/18 00:10 Gram Stain - Preliminary Sputum Sputum Culture - Preliminary Assessment and Plan Assessment: #1 nonoliguric acute kidney injury secondary to ischemic ATN. Creatinine currently stable. #2 septic shock secondary to pneumonia, off levo fed. #3 A. fib with RVR, rate controlled #4 metabolic acidosis secondary to acute kidney injury. #5 diarrhea, C. diff negative #6 edema Plan: #1 creatinine stable continue with IV fluids for now even though she has volume. #2 wean off the vent #3 avoid nephrotoxic agents and hypotensive episodes. #4 labs in the morning.
[2018-10-22] MEDS: IPRATROPIUM-ALBUTEROL 3 ML NEB INHALATION SCH ×4 (08:41→19:44)
[2018-10-22] MEDS: SYMBICORT 80-4.5 MCG INHALER INHALATION SCH (08:41)
[2018-10-22] MEDS: APIXABAN 2.5 MG TABLET PO SCH ×2 (08:52→19:57)
--- NOTE | 2018-10-22 09:45 | PN ---
PROGRESS NOTE Aniya Cota is a lady with pneumonia and respiratory failure. She is on a ventilator. She has been in atrial fibrillation with a moderate ventricular rate, has been in and out of this rhythm. She was seen by Dr. Madden, placed on intravenous amiodarone. Now switched over to oral amiodarone and Lopressor. She is now maintaining sinus rhythm. However, her stool was black and seems to be positive for occult blood and urine is also pink. Hemoglobin is stable at about 10.5 or 10.6. She is hemodynamically stable, not on any pressors at this time but remains on a ventilator because of respiratory failure with pneumonia. I am recommending that we decrease the Eliquis to 2.5 mg b.i.d. and follow the hemoglobin closely. Patient is in sinus rhythm. We will continue amiodarone and Lopressor orally for this at this time. Physical exam revealed a blood pressure of about 108 systolic. Pulse rate is about 70 and sinus. HEENT was not examined. NECK: Supple. There is JVD of 1 cm. No carotid bruit. S1, S2 with a short systolic murmur is audible. Lungs reveal diminished air entry. ABDOMEN: Soft. The rest of physical exam was unchanged. I did not do a detailed central nervous system examination. RECOMMENDATIONS: I am recommending that we continue amiodarone and Lopressor for her atrial fibrillation. We will decrease Eliquis in the light of possible hematuria and also occult blood in the stool. We will follow hemoglobins closely. MMODL / IJN: [id number] /
[2018-10-22] MEDS: NOREPINEPHRINE 4 MG in SODIUM CHLORIDE 0.9% 250 ML IV SCH (10:45)
--- NOTE | 2018-10-22 11:18 | P.PN ---
Subjective Progress Note Date: 10/22/18 Principal diagnosis: Acute hypoxic respiratory failure secondary to extensive pneumonia involving both lungs this is a 58-year-old femalewith history of diabetes, nonsmoker, patient presented to the ER on 10/13/2018,and she was complaining mostly of feeling sick, complaining of intermittent episodes of nausea and vomiting. Patient was also noted to be delirious and confused and she was noted to have fever and leukocytosis. Chest x-ray and CT of the chest showed a right lower lobe and right middle lobe. Consolidation. It also showed some partial atelectasis in the inferior lingula and a left lower lobe.patient was also noted to have high- grade fever with leukocytosis and she was noted to have intermittent episodes of atrial fibrillation with RVR. Treated with Cardizem, seen by cardiology on consultation, and the patient was noted to have worsening hypoxia and her oxygen requirement was getting more and more since admission, has the patient was transferred yesterday to the intensive care unit, and we were asked to see her on consultation. Patient denies any significant pulmonary symptoms during my evaluation, denies even being short of breath, denies any cough, and she denies any wheezing.she was already seen by Dr. Juares on consultation, and she was started empirically on antibiotics includingZosyn and vancomycin.patient remains on IV Cardizem, and she is also on metoprolol. However when she was seen by cardiology today, plan was to start the patient on amiodarone and discontinue Cardizem. Patient was reevaluated today in the ICU on 10/18/2018, remains on a high flow nasal cannula at 10 L/m, O2 saturation is definitely improving compared to yes terday. Her O2 saturation is 97% today. Remains on amiodarone, drip at present, chest x-ray today however is showing improvement in overall aeration, but there is a new right-sided pleural effusion associated with atelectasis. Improved aeration noted in the left lung base. Hence we will likely consider ultrasound of the chest, and proceed to thoracentesis in the effusion isn't large enough to be drained to improve her oxygenation further. At the same time the thoracentesis will be diagnostic as well as therapeutic. Labs from today were all reviewed. Blood cultures are negative since admission. Patient herself seems to be quite comfortable, feeling better overall. Breathing a lot easier. Reevaluated today on 10/19/2018, patient is feeling better from the pulmonary perspective, however she is complaining of generalized weakness, and swelling in her lower extremities. She is now on oral amiodarone, off IV amiodarone. Her atrial fibrillation seems to be well controlled, and her O2 saturation is 95% on 5 L nasal cannula. Electrolytes are relatively normal except for elevated c reatinine of 1.15 today, hemoglobin is 8.5 hemoglobin is 11.7. No chest x-ray was done today, ultrasound of the chest failed to show significant right-sided pleural effusion to consider thoracentesis. Hence the findings are mostly findings of atelectasis in the right base. And the patient was advised to use more and more her incentive spirometer. And to do more deep coughing and deep breathing. Patient was reevaluated today on 10/20/2018. She is now on mechanical ventilation. Last night I was notified about this patient around midnight were and she was noted by the RN to have more shortness of breath, shallow breathing, tachypnea, and at one point she was struggling to breathe. Patient was also noted to be diaphoretic. At her mental status has changed. Patient was placed on BiPAP initially given a dose of Lasix, however she continued to go downhill. Then I recommended immediate intubation. And placement on mechanical ventilation. Follow-up chest x-ray showed worsening consolidation in the lower lobe especially in the right lower lobe and left lower lobe. Her ventilator s ettings today are tidal volume of 450 assist-control rate of 20 FiO2 of 50% and PEEP of 5. Patient is on propofol and she is also on norepinephrine at 9 mcg/m. ABG before intubation showed a pO2 of 268 pCO2 of 67 pH of 7.17 obviously that indicates hypercapnic respiratory failure. Her ABG this morning showed a pO2 of 75 pCO2 of 44 pH of 7.37. Her kidneys are showing slight worsening with creat inine up to 1.51. Electrolytes otherwise are normal. Patient is sedated and on propofol, chest x-ray was reviewed condition was discussed with her family at bedside. Also discussed with the insurance billing specialist on the case. Patient was reevaluated today on 10/21/2018, remains on mechanical ventilation, b asically on the same ventilator settings, assist control rate of 20, volume of 450 FiO2 50% and PEEP of 5. Patient remains on propofol at 45 mcg/kg/m, presently off norepinephrine. Chest x-ray showed worsening airspace disease especially in the right lower lobe, hence I recommended bronchoscopy and bronchoalveolar lavage which was done today. Family was updated on her condition. Labs were all reviewed, ABG showed a pO2 of 84 pCO2 of 40 pH of 7.42. WBC count is 6.2 hemoglobin is 10.6 and a lites are normal however his creatinine is jumping up to 1.61. Sugars are running a bit low, hence the patient will be started today on enteral feeding via nasogastric tube. Patient remains on broad-spectrum antibiotics, remains on GI and DVT prophylaxis. Remains on Eliquis for her atrial fibrillation. Sputum cultures have been nondiagnostic so far. Bronchoalveolar lavage of the right lower lobe was performed today. Reevaluated today on 10/22/2018, remains in the ICU on mechanical ventilation. Her ventilator settings are tidal volume of 450 assist-control rate 20 FiO2 50% PEEP of 5. Patient is on propofol drip, she is not requiring any norepinephrine, she is in sinus rhythm, urine output is excellent. Creatinine is 1.6 today. Chest x-ray continues to show significant opacification of the right lung especially the right base, there is also some left basilar airspace disease. I believe the chest x-rays showing slight improvement compared to previous x-ray before bronchoscopy. Cultures from the bronchoscopy are pending. So far negative. Patient remains on Zosyn and vancomycin. The plan today is to hold sedation, assess mental status, patient is clearly not quite ready for weaning at this point considering her ABG is marginal and chest x-ray continues to show significant airspace disease. Objective - Vital Signs Vital signs: Vital Signs Temp 99 F 10/22/18 08:00 Pulse 78 10/22/18 09:07 Resp 20 10/22/18 09:07 BP 113/79 10/22/18 09:00 Pulse Ox 92 L 10/22/18 09:00 Intake & Output 10/21/18 10/22/18 10/22/18 18:59 06:59 18:59 Intake Total 9912.267 3071.188 413.561 Output Total 640 655 150 Balance 1025.334 866.188 263.561 Weight 99.9 kg Intake: IV 1095 900 225 Piperacillin-Tazobactam 3 175 .375 gm In Sodium Chloride 0.9% 100 ml @ 25 mls/hr IVPB Q8H [facility] Rx#: [id number] Sodium Chloride 0.9% 1, 900 900 225 000 ml @ 75 mls/hr IV . [id number] T[facility] Rx#:[id number] Intake, IV Titration 420.334 361.188 88.561 Amount Norepinephrine 4 mg In 208.526 Sodium Chloride 0.9% 250 ml @ 0.05 MCG/KG/MIN 17. 869 mls/hr IV .[id number] [facility] Rx#:[id number] Propofol 1,000 mg In 211.808 361.188 88.561 Empty Bag 1 bag @ Titrate IV .Q0M TAMIR Rx#: [id number] Tube Feeding 170 70 Other 150 90 30 Output: Urine 640 655 150 Other: Voiding Method Indwelling Catheter Indwelling Catheter Indwelling Catheter # Bowel Movements 1 1 - Exam Physical Exam: Revealed a 58-year-old female on mechanical ventilation, sedated, on propofol drip. Head: Atraumatic, normocephalic. HEENT:[Neck is supple.] [No neck masses.] [No thyromegaly.] [No JVD.]PERRLA, EOMI, no icterus. Throat is clear, endotracheal tube and orogastric tube are intact. Chest: [Diminished breath sound bilaterally no crackles or rhonchi or wheezes.. Symmetrical chest expansion. No chest wall tenderness] Cardiac Exam: Normal S1 and S2, regular rate and rhythm, no S3 gallop, no murmur. Abdomen: [Soft, nontender, no megaly, no rebound, no guarding, normal bowel sounds.] Extremities: [No clubbing, 1+ bipedal edema., no cyanosis.] Neurological Exam: [Cannot be assessed, patient is sedated, Psychiatric: Cannot be assessed. Skin: No rashes. Lymphatics: No lymphadenopathy. - Labs CBC & Chem 7: 10/22/18 04:55 10/22/18 04:55 Labs: Abnormal Lab Results - Last 24 Hours (Table) 10/21/18 10/21/18 10/21/18 Range/Units 13:00 18:39 20:19 RBC (3.80-5.40) m/uL Hgb (11.4-16.0) gm/dL MCHC (31.0-37.0) g/dL ABG pCO2 (35-45) mmHg ABG pO2 (83-108) mmHg ABG HCO3 (21-25) mmol/L ABG Total CO2 (19-24) mmol/L ABG O2 Saturation (94-97) % Chloride (98-107) mmol/L BUN (7-17) mg/dL Creatinine (0.52-1.04) mg/dL Glucose (74-99) mg/dL POC Glucose (mg/dL) 137 H 144 H (75-99) mg/dL Calcium (8.4-10.2) mg/dL AST (14-36) U/L Total Protein (6.3-8.2) g/dL Albumin (3.5-5.0) g/dL Stool Occult Blood (Negative) Viral Test See Below H 10/21/18 10/21/18 10/21/18 Range/Units 20:48 23:34 23:34 RBC (3.80-5.40) m/uL Hgb (11.4-16.0) gm/dL MCHC (31.0-37.0) g/dL ABG pCO2 (35-45) mmHg ABG pO2 (83-108) mmHg ABG HCO3 (21-25) mmol/L ABG Total CO2 (19-24) mmol/L ABG O2 Saturation (94-97) % Chloride (98-107) mmol/L BUN (7-17) mg/dL Creatinine (0.52-1.04) mg/dL Glucose (74-99) mg/dL POC Glucose (mg/dL) 154 H 134 H (75-99) mg/dL Calcium (8.4-10.2) mg/dL AST (14-36) U/L Total Protein (6.3-8.2) g/dL Albumin (3.5-5.0) g/dL Stool Occult Blood Positive H (Negative) Viral Test 10/22/18 10/22/18 10/22/18 Range/Units 04:55 04:55 05:29 RBC 3.71 L (3.80-5.40) m/uL Hgb 10.5 L (11.4-16.0) gm/dL MCHC 30.5 L (31.0-37.0) g/dL ABG pCO2 (35-45) mmHg ABG pO2 (83-108) mmHg ABG HCO3 (21-25) mmol/L ABG Total CO2 (19-24) mmol/L ABG O2 Saturation (94-97) % Chloride 112 H (98-107) mmol/L BUN 31 H (7-17) mg/dL Creatinine 1.60 H (0.52-1.04) mg/dL Glucose 114 H (74-99) mg/dL POC Glucose (mg/dL) 118 H (75-99) mg/dL Calcium 7.6 L (8.4-10.2) mg/dL AST 37 H (14-36) U/L Total Protein 4.6 L (6.3-8.2) g/dL Albumin 2.3 L (3.5-5.0) g/dL Stool Occult Blood (Negative) Viral Test 10/22/18 Range/Units 07:40 RBC (3.80-5.40) m/uL Hgb (11.4-16.0) gm/dL MCHC (31.0-37.0) g/dL ABG pCO2 46 H (35-45) mmHg ABG pO2 72 L (83-108) mmHg ABG HCO3 26 H (21-25) mmol/L ABG Total CO2 27 H (19-24) mmol/L ABG O2 Saturation 93.5 L (94-97) % Chloride (98-107) mmol/L BUN (7-17) mg/dL Creatinine (0.52-1.04) mg/dL Glucose (74-99) mg/dL POC Glucose (mg/dL) (75-99) mg/dL Calcium (8.4-10.2) mg/dL AST (14-36) U/L Total Protein (6.3-8.2) g/dL Albumin (3.5-5.0) g/dL Stool Occult Blood (Negative) Viral Test Microbiology - Last 24 Hours (Table) 10/20/18 00:10 Gram Stain - Final Sputum Sputum Culture - Final 10/21/18 13:00 Acid Fast Bacilli Smear - Final Bronchial Washings - Left Acid Fast Bacilli Culture - Preliminary 10/21/18 13:00 Gram Stain - Preliminary Bronchial Washings - Left Bronchial Washings Culture - Preliminary 10/21/18 13:00 Fungal Culture - Preliminary Bronchial Washings - Left Assessment and Plan Assessment: impression: 1 acute hypoxic and hypercapnic respiratory failure secondary to acute bilateral pneumonia, required intubation and mechanical ventilation on 10/19/2018. 2 acute sepsis secondary to pneumonia, with hypotension, which could be related to sepsis could also be related to hypovolemia. Presently off norepinephrine. At her IV fluid is at 75 mL per hour. 3: Acute hypotension, could be related to sepsis/septic shock, however I feel the hypertension is mostly hypovolemic in nature, although sepsis and septic shock are in the picture. But felt to be less likely. 4 history of diabetes type 2 5 history of asthma patient is maintained on bronchodilators on outpatient, basIs, presently inactive 6 acute hypoxic respiratory failure secondary to extensive pneumonia involving both lungs. 7 right-sided pleural effusion, was not seen to be significant on ultrasound, hence no plans to do thoracentesis. Recommendation: Ventilatory support, nutritional support/enteral feeding, continue bronchodilators, placed back on Solu-Medrol instead of oral prednisone, placed on Pulmicort updrafts twice a day. Continue GI and DVT prophylaxis, patient is back on Eliquis. Continue to monitor daily chest x-rays, daily labs including ABG and electrolytes, continue antibiotics in the form of Zosyn and vancomycin, discussed her condition with family at bedside, the plan is to have sedation interruption today assessment of mental status, no plans to proceed further with weaning since her ABG and chest x-ray are marginal at best. Family is aware of her condition, critical care time is 35 minutes Time with Patient: Greater than 30
[2018-10-22 12:11] LABS: Glucose,Whole Blood 177 mg/dL (75-99)
[2018-10-22] MEDS: methylPREDNISolone SOD SUCCI 40 MG/ML 1 ML VIAL IV SCH ×3 (12:17→23:37)
[2018-10-22 17:48] LABS: Glucose,Whole Blood 257 mg/dL (75-99)
[2018-10-22] MEDS: BUDESONIDE 1 MG/2 ML NEBU INHALATION SCH (19:44)
[2018-10-22] MEDS: ATORVASTATIN 40 MG TAB PO SCH (19:57)
[2018-10-22] MEDS: SERTRALINE 50 MG TAB PO SCH (19:57)
[2018-10-22] MEDS: MONTELUKAST 10 MG TAB PO SCH (19:57)
[2018-10-22 20:21] LABS: Glucose,Whole Blood 254 mg/dL (75-99)
[2018-10-22] MEDS: INSULIN DETEMIR (LEVEMIR) 100 UNIT/ML SYR SQ SCH (20:21)
[2018-10-22] MEDS: LORazepam 2 MG/ML INJ IV PRN (21:14)
[2018-10-22 21:52] LABS: Glucose,Whole Blood 264 mg/dL (75-99)
--- NOTE | 2018-10-22 23:21 | PN ---
PROGRESS NOTE DATE OF SERVICE: 10/22/2018. This 58-year-old woman who was admitted with right lower pneumonia as well as possibly acute respiratory failure and asthma, also had sepsis also. Patient has septic shock as well. The patient had acute hypoxic hypercapnic respiratory failure. Patient mechanically ventilated. Weaning attempts failed today because the patient developed significant shortness of breath. Currently patient is still intubated and mechanically ventilated. The vent settings are assist-control 50% FiO2, 5 [address]EEP[address] Being closely monitored. Dr. Wyman and nephrology following the patient closely. PAST MEDICAL HISTORY: Past medical history reviewed. REVIEW OF SYMPTOMS: Could not be taken because the patient is mechanically sedated. CURRENT MEDICATIONS: 1. Tylenol 650 q.4 p.r.n. 2. DuoNeb q.i.d. p.r.n. 3. Cordarone 200 mg p.o. b.i.d. 4. Eliquis 2.5 mg b.i.d. 5. Lipitor 40 mg q.h.s. 6. Pulmicort 1 mg b.i.d. 7. Peridex. 8. Lomotil. 9. NovoLog. 10.Levemir 30 units subcu q.h.s. 11.Ativan. 12.Magnesium oxide. 13.Solu-Medrol 40 q.6. 14.Replacement protocols. 15.Zosyn IV. PHYSICAL EXAM: Patient is mechanically ventilated and sedated. Pulse 97, blood pressure 147/83, respiration 26, temperature 99.9, pulse ox 91 percent on mechanical ventilation. Vent settings are noted. HEENT: Conjunctivae normal. Oral mucosa moist. Neck is no jugular venous distention. No carotid bruit. No lymph node enlargement. CARDIOVASCULAR: S1, S2. No S3, no S4. RESPIRATORY: Breath sounds diminished in the bases. Bilateral scattered rhonchi and crackles. ABDOMEN: Soft, nontender. LEGS: No edema. No swelling. NERVOUS SYSTEM: Patient is mechanically ventilated and sedated. SKIN: No ulcers, rashes or bleeding. JOINTS: No active deforming arthropathy. LABS: WBC 6.3, hemoglobin 10.7, sodium 140, potassium 4.4. Accu-Cheks are noted. ASSESSMENT: 1. Acute right lower lobe pneumonia possibly community-acquired with severe sepsis, septic shock. adeno virus from bronchoscopy 2. Change in mental status acute metabolic encephalopathy, possible sepsis. 3. Acute hypoxic hypercarbic respiratory failure secondary to pneumonia and bronchial asthma. 4. Acute kidney injury. 5. Metabolic encephalopathy. 6. Hyponatremia, hypovolemic hyponatremia. 8 mm post noudle rt breast- in the CT scan recommend out pt follow up 7. Diabetes mellitus type 2. 8. Hyperlipidemia. 9. Lactic acidosis. 10.Hypertension. 11.History of chronic obstructive pulmonary disease, possibly. 12.Episode of atrial fibrillation paroxysmal. 13.Increased creatinine with possibly acute renal failure possibly secondary to prerenal factors with acute tubular necrosis. RECOMMENDATIONS AND DISCUSSION: In this 58-year-old woman who presented with multiple complex medical issues, we will monitor the patient. We will monitor the patient closely. Continue the current medications, management and symptomatic treatment. Continue with antibiotics. Continue with bronchodilators. Continue with IV steroids. Patient is on IV Zosyn. Infectious disease following the patient closely. Otherwise, cultures have been showing only Aminta albicans. Continue rest of medications. Guarded prognosis because of multiple complex medical conditions. Further recommendations to follow. The chest x-ray reviewed personally by me. See orders for details. Prognosis guarded. Continue to monitor. Guarded prognosis. Further recommendations to follow. MMODL / IJN: [id number] / ANNA
[2018-10-22] MEDS: IPRATROPIUM-ALBUTEROL 3 ML NEB INHALATION PRN (23:24)
[2018-10-22 23:25] LABS: Glucose,Whole Blood 193 mg/dL (75-99)
[2018-10-22 23:37] LABS: Glucose,Whole Blood 203 mg/dL (75-99)
[2018-10-22] MEDS: ACETAMINOPHEN TAB 325 MG TAB PO PRN (23:37)
[2018-10-23] MEDS: PROPOFOL 1,000 MG in EMPTY BAG 1 BAG IV SCH ×7 (01:37→23:09)
[2018-10-23] MEDS: NOREPINEPHRINE 4 MG in SODIUM CHLORIDE 0.9% 250 ML IV SCH ×2 (01:40→12:12)
[2018-10-23 05:17] LABS: HCT 30.5 % (34.0-46.0); HGB 9.5 gm/dL (11.4-16.0); MCH 28.4 pg (25.0-35.0); MCHC 31.3 g/dL (31.0-37.0); Mean Platelet Volume 6.9; Platelet Count 558 k/uL (150-450); RBC 3.35 m/uL (3.80-5.40); RDW 14.6 % (11.5-15.5); WBC 6.8 k/uL (3.8-10.6)
[2018-10-23] MEDS: PIPERACILLIN-TAZOBACTAM 3.375 GM in SODIUM CHLORIDE 0.9% 100 ML IVPB SCH ×3 (05:23→23:29)
[2018-10-23] MEDS: methylPREDNISolone SOD SUCCI 40 MG/ML 1 ML VIAL IV SCH ×3 (05:23→17:56)
[2018-10-23 05:27] LABS: Albumin 2.4 g/dL (3.5-5.0); Calcium 7.8 mg/dL (8.4-10.2); Potassium 4.9 mmol/L (3.5-5.1); Total Bilirubin 0.2 mg/dL (0.2-1.3); Total Protein 4.8 g/dL (6.3-8.2)
[2018-10-23 05:28] LABS: Glucose,Whole Blood 181 mg/dL (75-99)
[2018-10-23] MEDS: INSULIN ASPART (NovoLOG) 100 UNIT/ML VIAL SQ SCH ×3 (05:34→17:56)
--- NOTE | 2018-10-23 06:40 | XR ---
EXAMINATION TYPE: XR chest 1V portable DATE OF EXAM: 10/23/2018 HISTORY: Tube placement. REFERENCE: Previous study dated 10/22/2018. FINDINGS: The patient is ET tube and NG tube remain in place unchanged in appearance. There is right basilar airspace disease. There are bilateral effusions. Heart size is upper limits of normal. The overall appearance has not changed significantly. IMPRESSION: NO SIGNIFICANT INTERVAL CHANGE IN THE APPEARANCE OF THE CHEST.
[2018-10-23 07:18] LABS: ABG Base Excess -1.5 mmol/L; ABG HCO3 25 mmol/L (21-25); ABG Oxygen Saturation 93.3 % (94-97); ABG PCO2 48 mmHg (35-45); ABG PH 7.32 (7.35-7.45); ABG PO2 73 mmHg (83-108); ABG TCO2 26 mmol/L (19-24); Allen Test Performed? Yes
[2018-10-23] MEDS: AMIODARONE 200 MG TAB PO SCH ×2 (08:01→23:12)
[2018-10-23] MEDS: CHLORHEXIDINE GLUCONATE 15 ML CUP MUCOUS MEM SCH ×2 (08:02→20:07)
[2018-10-23] MEDS: METOPROLOL TARTRATE 25 MG TAB PO SCH ×2 (08:02→23:12)
[2018-10-23] MEDS: MAG HYDROX/AL HYDROX/SIMETH 30 ML, LIDOCAINE VISCOUS 30 ML, NYSTATIN 100,000 UNIT/ML SU... PO SCH ×12 (08:02→23:13)
[2018-10-23] MEDS: PANTOPRAZOLE 40 MG/10 ML VIAL IVP SCH ×2 (08:02→23:13)
[2018-10-23] MEDS: MAGNESIUM OXIDE 400 MG TAB PO SCH (08:02)
[2018-10-23] MEDS: IPRATROPIUM-ALBUTEROL 3 ML NEB INHALATION SCH ×4 (08:06→19:41)
[2018-10-23] MEDS: BUDESONIDE 1 MG/2 ML NEBU INHALATION SCH ×2 (08:06→20:45)
[2018-10-23] MEDS ORDERED: LISINOPRIL 20 MG TAB PO SCH (09:00)
[2018-10-23] MEDS: SODIUM CHLORIDE 0.9% 1,000 ML IV SCH (11:06)
[2018-10-23 11:09] LABS: Glucose,Whole Blood 175 mg/dL (75-99)
[2018-10-23] MEDS: POTASSIUM BICARBONATE/CIT AC 20 MEQ TABLET.EFF PO SCH (11:26)
--- NOTE | 2018-10-23 11:32 | P.PN ---
Subjective Progress Note Date: 10/23/18 Seen and examined for the follow-up of acute kidney injury. Still on ventilators with minimum settings. Off levo fed. 2000 ML's of urine output in the last 24 hours. Urine looks pink/bloody, liquids. Today. Blood pressures are better but still continues to have diarrhea. Objective - Vital Signs Vital signs: Vital Signs Temp 98.6 F 10/23/18 08:00 Pulse 75 10/23/18 11:00 Resp 22 10/23/18 11:00 BP 130/68 10/23/18 11:00 Pulse Ox 93 L 10/23/18 11:00 Intake & Output 10/22/18 10/23/18 10/23/18 18:59 06:59 18:59 Intake Total 5994.044 9441.071 931.448 Output Total 975 1120 500 Balance 868.480 645.071 431.448 Weight 99.4 kg 99.6 kg Intake: IV 1000 900 475 Piperacillin-Tazobactam 3 100 100 .375 gm In Sodium Chloride 0.9% 100 ml @ 25 mls/hr IVPB Q8H [facility] Rx#: [id number] Sodium Chloride 0.9% 1, 900 900 375 000 ml @ 75 mls/hr IV . [id number] [facility] Rx#:[id number] Intake, IV Titration 269.480 271.071 84.448 Amount Propofol 1,000 mg In 269.480 271.071 84.448 Empty Bag 1 bag @ Titrate IV .Q0M T[facility] Rx#: [id number] Tube Feeding 364 504 252 Other 210 90 120 Output: Urine 975 1120 500 Other: Voiding Method Indwelling Catheter Indwelling Catheter Indwelling Catheter # Bowel Movements 1 1 1 - Exam No acute distress, on ventilator S1-S2 heard Bilateral air entry Alvarez catheter with pinkish urine Edema - Labs CBC & Chem 7: 10/23/18 04:48 10/23/18 04:48 Labs: Abnormal Lab Results - Last 24 Hours (Table) 10/22/18 10/22/18 10/22/18 Range/Units 12:10 17:46 20:20 RBC (3.80-5.40) m/uL Hgb (11.4-16.0) gm/dL Hct (34.0-46.0) % Plt Count (150-450) k/uL ABG pH (7.35-7.45) ABG pCO2 (35-45) mmHg ABG pO2 (83-108) mmHg ABG Total CO2 (19-24) mmol/L ABG O2 Saturation (94-97) % Chloride (98-107) mmol/L BUN (7-17) mg/dL Creatinine (0.52-1.04) mg/dL Glucose (74-99) mg/dL POC Glucose (mg/dL) 177 H 257 H 254 H (75-99) mg/dL Calcium (8.4-10.2) mg/dL Total Protein (6.3-8.2) g/dL Albumin (3.5-5.0) g/dL 10/22/18 10/22/18 10/22/18 Range/Units 21:51 23:23 23:35 RBC (3.80-5.40) m/uL Hgb (11.4-16.0) gm/dL Hct (34.0-46.0) % Plt Count (150-450) k/uL ABG pH (7.35-7.45) ABG pCO2 (35-45) mmHg ABG pO2 (83-108) mmHg ABG Total CO2 (19-24) mmol/L ABG O2 Saturation (94-97) % Chloride (98-107) mmol/L BUN (7-17) mg/dL Creatinine (0.52-1.04) mg/dL Glucose (74-99) mg/dL POC Glucose (mg/dL) 264 H 193 H 203 H (75-99) mg/dL Calcium (8.4-10.2) mg/dL Total Protein (6.3-8.2) g/dL Albumin (3.5-5.0) g/dL 10/23/18 10/23/18 10/23/18 Range/Units 04:48 04:48 05:27 RBC 3.35 L (3.80-5.40) m/uL Hgb 9.5 L (11.4-16.0) gm/dL Hct 30.5 L (34.0-46.0) % Plt Count 558 H (150-450) k/uL ABG pH (7.35-7.45) ABG pCO2 (35-45) mmHg ABG pO2 (83-108) mmHg ABG Total CO2 (19-24) mmol/L ABG O2 Saturation (94-97) % Chloride 112 H (98-107) mmol/L BUN 43 H (7-17) mg/dL Creatinine 1.52 H (0.52-1.04) mg/dL Glucose 190 H (74-99) mg/dL POC Glucose (mg/dL) 181 H (75-99) mg/dL Calcium 7.8 L (8.4-10.2) mg/dL Total Protein 4.8 L (6.3-8.2) g/dL Albumin 2.4 L (3.5-5.0) g/dL 10/23/18 10/23/18 Range/Units 07:13 11:07 RBC (3.80-5.40) m/uL Hgb (11.4-16.0) gm/dL Hct (34.0-46.0) % Plt Count (150-450) k/uL ABG pH 7.32 L (7.35-7.45) ABG pCO2 48 H (35-45) mmHg ABG pO2 73 L (83-108) mmHg ABG Total CO2 26 H (19-24) mmol/L ABG O2 Saturation 93.3 L (94-97) % Chloride (98-107) mmol/L BUN (7-17) mg/dL Creatinine (0.52-1.04) mg/dL Glucose (74-99) mg/dL POC Glucose (mg/dL) 175 H (75-99) mg/dL Calcium (8.4-10.2) mg/dL Total Protein (6.3-8.2) g/dL Albumin (3.5-5.0) g/dL Microbiology - Last 24 Hours (Table) 10/21/18 13:00 Gram Stain - Final Bronchial Washings - Left Bronchial Washings Culture - Final 10/20/18 00:10 Gram Stain - Final Sputum Sputum Culture - Final Assessment and Plan Assessment: #1 nonoliguric acute kidney injury secondary to ischemic ATN. Creatinine currently stable. #2 septic shock secondary to pneumonia, off levo fed. Resolved #3 A. fib with RVR, rate controlled #4 metabolic acidosis resolved. #5 diarrhea, C. diff negative #6 edema #7 hypertension. Goal 120-140/90 Plan: #1 creatinine stable continue with IV fluids for now even though she has volume, she has persistent diarrhea.. #2 wean off the vent #3 avoid nephrotoxic agents and hypotensive episodes. #4 the potassium replacements. Change lisinopril to amlodipine because she is recovering from acute kidney injury. #5 labs in the morning.
--- NOTE | 2018-10-23 11:49 | CONS ---
CONSULTATION Mrs. Cota is having more hematuria. Today she is in sinus rhythm. She has maintained sinus rhythm on a combination of amiodarone and beta waldo. I am recommending that we discontinue Eliquis. Her weaning is in progress from the ventilator. She has history of a pneumonia and sepsis which Dr. Wyman is addressing. She is going to be weaned today. We will discontinue Eliquis in the light of active bleeding. I explained this to the patient and . S1-S2 heard normally, in regular rhythm. Lungs reveal diminished air entry. Abdomen and lower extremity exam unchanged. Plan is to discontinue Eliquis. Continue weaning efforts. MMODL / IJN: [id number] /
--- NOTE | 2018-10-23 12:26 | P.PN ---
Subjective Progress Note Date: 10/23/18 Principal diagnosis: Acute hypoxic respiratory failure secondary to extensive pneumonia involving both lungs this is a 58-year-old femalewith history of diabetes, nonsmoker, patient presented to the ER on 10/13/2018,and she was complaining mostly of feeling sick, complaining of intermittent episodes of nausea and vomiting. Patient was also noted to be delirious and confused and she was noted to have fever and leukocytosis. Chest x-ray and CT of the chest showed a right lower lobe and right middle lobe. Consolidation. It also showed some partial atelectasis in the inferior lingula and a left lower lobe.patient was also noted to have high- grade fever with leukocytosis and she was noted to have intermittent episodes of atrial fibrillation with RVR. Treated with Cardizem, seen by cardiology on consultation, and the patient was noted to have worsening hypoxia and her oxygen requirement was getting more and more since admission, has the patient was transferred yesterday to the intensive care unit, and we were asked to see her on consultation. Patient denies any significant pulmonary symptoms during my evaluation, denies even being short of breath, denies any cough, and she denies any wheezing.she was already seen by Dr. Juares on consultation, and she was started empirically on antibiotics includingZosyn and vancomycin.patient remains on IV Cardizem, and she is also on metoprolol. However when she was seen by cardiology today, plan was to start the patient on amiodarone and discontinue Cardizem. Patient was reevaluated today in the ICU on 10/18/2018, remains on a high flow nasal cannula at 10 L/m, O2 saturation is definitely improving compared to yes terday. Her O2 saturation is 97% today. Remains on amiodarone, drip at present, chest x-ray today however is showing improvement in overall aeration, but there is a new right-sided pleural effusion associated with atelectasis. Improved aeration noted in the left lung base. Hence we will likely consider ultrasound of the chest, and proceed to thoracentesis in the effusion isn't large enough to be drained to improve her oxygenation further. At the same time the thoracentesis will be diagnostic as well as therapeutic. Labs from today were all reviewed. Blood cultures are negative since admission. Patient herself seems to be quite comfortable, feeling better overall. Breathing a lot easier. Reevaluated today on 10/19/2018, patient is feeling better from the pulmonary perspective, however she is complaining of generalized weakness, and swelling in her lower extremities. She is now on oral amiodarone, off IV amiodarone. Her atrial fibrillation seems to be well controlled, and her O2 saturation is 95% on 5 L nasal cannula. Electrolytes are relatively normal except for elevated c reatinine of 1.15 today, hemoglobin is 8.5 hemoglobin is 11.7. No chest x-ray was done today, ultrasound of the chest failed to show significant right-sided pleural effusion to consider thoracentesis. Hence the findings are mostly findings of atelectasis in the right base. And the patient was advised to use more and more her incentive spirometer. And to do more deep coughing and deep breathing. Patient was reevaluated today on 10/20/2018. She is now on mechanical ventilation. Last night I was notified about this patient around midnight were and she was noted by the RN to have more shortness of breath, shallow breathing, tachypnea, and at one point she was struggling to breathe. Patient was also noted to be diaphoretic. At her mental status has changed. Patient was placed on BiPAP initially given a dose of Lasix, however she continued to go downhill. Then I recommended immediate intubation. And placement on mechanical ventilation. Follow-up chest x-ray showed worsening consolidation in the lower lobe especially in the right lower lobe and left lower lobe. Her ventilator s ettings today are tidal volume of 450 assist-control rate of 20 FiO2 of 50% and PEEP of 5. Patient is on propofol and she is also on norepinephrine at 9 mcg/m. ABG before intubation showed a pO2 of 268 pCO2 of 67 pH of 7.17 obviously that indicates hypercapnic respiratory failure. Her ABG this morning showed a pO2 of 75 pCO2 of 44 pH of 7.37. Her kidneys are showing slight worsening with creat inine up to 1.51. Electrolytes otherwise are normal. Patient is sedated and on propofol, chest x-ray was reviewed condition was discussed with her family at bedside. Also discussed with the independent living specialist on the case. Patient was reevaluated today on 10/21/2018, remains on mechanical ventilation, b asically on the same ventilator settings, assist control rate of 20, volume of 450 FiO2 50% and PEEP of 5. Patient remains on propofol at 45 mcg/kg/m, presently off norepinephrine. Chest x-ray showed worsening airspace disease especially in the right lower lobe, hence I recommended bronchoscopy and bronchoalveolar lavage which was done today. Family was updated on her condition. Labs were all reviewed, ABG showed a pO2 of 84 pCO2 of 40 pH of 7.42. WBC count is 6.2 hemoglobin is 10.6 and a lites are normal however his creatinine is jumping up to 1.61. Sugars are running a bit low, hence the patient will be started today on enteral feeding via nasogastric tube. Patient remains on broad-spectrum antibiotics, remains on GI and DVT prophylaxis. Remains on Eliquis for her atrial fibrillation. Sputum cultures have been nondiagnostic so far. Bronchoalveolar lavage of the right lower lobe was performed today. Reevaluated today on 10/22/2018, remains in the ICU on mechanical ventilation. Her ventilator settings are tidal volume of 450 assist-control rate 20 FiO2 50% PEEP of 5. Patient is on propofol drip, she is not requiring any norepinephrine, she is in sinus rhythm, urine output is excellent. Creatinine is 1.6 today. Chest x-ray continues to show significant opacification of the right lung especially the right base, there is also some left basilar airspace disease. I believe the chest x-rays showing slight improvement compared to previous x-ray before bronchoscopy. Cultures from the bronchoscopy are pending. So far negative. Patient remains on Zosyn and vancomycin. The plan today is to hold sedation, assess mental status, patient is clearly not quite ready for weaning at this point considering her ABG is marginal and chest x-ray continues to show significant airspace disease. Reevaluated today on 10/23/2018, patient remains mechanically ventilated, her matilda tilator settings today are basically the same, unchanged fell volume is 450 assist-control rate of 20 FiO2 is 55%, PEEP is 5. Patient is off norepinephrine, remains on broad-spectrum antibiotics, renal functioning is improving, urine output is excellent however the patient has some hematuria, and Eliquis is presently on hold as per cardiology. Chest x-ray continues to showright basilar airspace disease, and small bilateral pleural effusions, overall appearance is not significantly changed. Bronchoscopy and BAL cultures are negative. Nondiagnostic. Cytology is pending.ABG this morning showed a pO2 of 73 pCO2 of 48 pH of 7.32. WBC count is 6.8 hemoglobin is 9.5. Creatinine is 1.5 Objective - Vital Signs Vital signs: Vital Signs Temp 98.6 F 10/23/18 08:00 Pulse 75 10/23/18 11:00 Resp 22 10/23/18 11:00 BP 130/68 10/23/18 11:00 Pulse Ox 93 L 10/23/18 11:00 Intake & Output 10/22/18 10/23/18 10/23/18 18:59 06:59 18:59 Intake Total 8891.190 3611.071 1288.375 Output Total 975 1120 600 Balance 868.480 645.071 688.375 Weight 99.4 kg 99.6 kg Intake: IV 1000 900 550 Piperacillin-Tazobactam 3 100 100 .375 gm In Sodium Chloride 0.9% 100 ml @ 25 mls/hr IVPB Q8H TAMIR Rx#: [id number] Sodium Chloride 0.9% 1, 900 900 450 000 ml @ 75 mls/hr IV . [id number] TAMIR Rx#:[id number] Intake, IV Titration 269.480 271.071 152.375 Amount Propofol 1,000 mg In 269.480 271.071 152.375 Empty Bag 1 bag @ Titrate IV .Q0M TAMIR Rx#: [id number] Tube Feeding 364 504 336 Other 210 90 250 Output: Urine 975 1120 600 Other: Voiding Method Indwelling Catheter Indwelling Catheter Indwelling Catheter # Bowel Movements 1 1 1 - Exam Physical Exam: Revealed a 58-year-old female on mechanical ventilation, sedated, on propofol drip. propofol was earlier discontinued by the nurse, and the patient became extremely agitated, restless, tachycardic, tachypneic, she was moving all her extremities, but nonpurposeful. Placed back on propofol, patient is not ready for weaning. Head: Atraumatic, normocephalic. HEENT:[Neck is supple.] [No neck masses.] [No thyromegaly.] [No JVD.]PERRLA, EOMI, no icterus. Throat is clear, endotracheal tube and orogastric tube are intact. Chest: [Diminished breath sound bilaterally no crackles or rhonchi or wheezes.. Symmetrical chest expansion. No chest wall tenderness] Cardiac Exam: Normal S1 and S2, regular rate and rhythm, no S3 gallop, no murmur. Abdomen: [Soft, nontender, no megaly, no rebound, no guarding, normal bowel sounds.] Extremities: [No clubbing, 1+ bipedal edema., no cyanosis.] Neurological Exam: [Cannot be assessed, patient is sedated, Psychiatric: Cannot be assessed. Skin: No rashes. Lymphatics: No lymphadenopathy. - Labs CBC & Chem 7: 10/23/18 04:48 10/23/18 04:48 Labs: Abnormal Lab Results - Last 24 Hours (Table) 10/22/18 10/22/18 10/22/18 Range/Units 17:46 20:20 21:51 RBC (3.80-5.40) m/uL Hgb (11.4-16.0) gm/dL Hct (34.0-46.0) % Plt Count (150-450) k/uL ABG pH (7.35-7.45) ABG pCO2 (35-45) mmHg ABG pO2 (83-108) mmHg ABG Total CO2 (19-24) mmol/L ABG O2 Saturation (94-97) % Chloride (98-107) mmol/L BUN (7-17) mg/dL Creatinine (0.52-1.04) mg/dL Glucose (74-99) mg/dL POC Glucose (mg/dL) 257 H 254 H 264 H (75-99) mg/dL Calcium (8.4-10.2) mg/dL Total Protein (6.3-8.2) g/dL Albumin (3.5-5.0) g/dL 10/22/18 10/22/18 10/23/18 Range/Units 23:23 23:35 04:48 RBC (3.80-5.40) m/uL Hgb (11.4-16.0) gm/dL Hct (34.0-46.0) % Plt Count (150-450) k/uL ABG pH (7.35-7.45) ABG pCO2 (35-45) mmHg ABG pO2 (83-108) mmHg ABG Total CO2 (19-24) mmol/L ABG O2 Saturation (94-97) % Chloride 112 H (98-107) mmol/L BUN 43 H (7-17) mg/dL Creatinine 1.52 H (0.52-1.04) mg/dL Glucose 190 H (74-99) mg/dL POC Glucose (mg/dL) 193 H 203 H (75-99) mg/dL Calcium 7.8 L (8.4-10.2) mg/dL Total Protein 4.8 L (6.3-8.2) g/dL Albumin 2.4 L (3.5-5.0) g/dL 10/23/18 10/23/18 10/23/18 Range/Units 04:48 05:27 07:13 RBC 3.35 L (3.80-5.40) m/uL Hgb 9.5 L (11.4-16.0) gm/dL Hct 30.5 L (34.0-46.0) % Plt Count 558 H (150-450) k/uL ABG pH 7.32 L (7.35-7.45) ABG pCO2 48 H (35-45) mmHg ABG pO2 73 L (83-108) mmHg ABG Total CO2 26 H (19-24) mmol/L ABG O2 Saturation 93.3 L (94-97) % Chloride (98-107) mmol/L BUN (7-17) mg/dL Creatinine (0.52-1.04) mg/dL Glucose (74-99) mg/dL POC Glucose (mg/dL) 181 H (75-99) mg/dL Calcium (8.4-10.2) mg/dL Total Protein (6.3-8.2) g/dL Albumin (3.5-5.0) g/dL 10/23/18 Range/Units 11:07 RBC (3.80-5.40) m/uL Hgb (11.4-16.0) gm/dL Hct (34.0-46.0) % Plt Count (150-450) k/uL ABG pH (7.35-7.45) ABG pCO2 (35-45) mmHg ABG pO2 (83-108) mmHg ABG Total CO2 (19-24) mmol/L ABG O2 Saturation (94-97) % Chloride (98-107) mmol/L BUN (7-17) mg/dL Creatinine (0.52-1.04) mg/dL Glucose (74-99) mg/dL POC Glucose (mg/dL) 175 H (75-99) mg/dL Calcium (8.4-10.2) mg/dL Total Protein (6.3-8.2) g/dL Albumin (3.5-5.0) g/dL Microbiology - Last 24 Hours (Table) 10/21/18 13:00 Gram Stain - Final Bronchial Washings - Left Bronchial Washings Culture - Final 10/20/18 00:10 Gram Stain - Final Sputum Sputum Culture - Final Assessment and Plan Assessment: impression: 1 acute hypoxic and hypercapnic respiratory failure secondary to acute bilateral pneumonia, required intubation and mechanical ventilation on 10/19/2018. 2 acute sepsis secondary to pneumonia, with hypotension, which could be related to sepsis could also be related to hypovolemia. Presently off norepinephrine. At her IV fluid is at 75 mL per hour. 3: Acute hypotension, could be related to sepsis/septic shock, however I feel the hypertension is mostly hypovolemic in nature, although sepsis and septic shock are in the picture. But felt to be less likely. 4 history of diabetes type 2 5 history of asthma patient is maintained on bronchodilators on outpatient, basIs, presently inactive 6 acute hypoxic respiratory failure secondary to extensive pneumonia involving both lungs. 7 right-sided pleural effusion, was not seen to be significant on ultrasound, hence no plans to do thoracentesis. Recommendation: family is at bedside, updated on her condition, made aware that the patient is not ready for weaning or extubation at this point, ABG is marginal chest x-ray is not significantly improved, continues to have significant airspace disease patient in the right lower lobe, hence I plan to continue antibiotics, bronchodilators, steroids, continue GI and DVT prophylaxis, we'll hold the Eliquis for now because of hematuria, continue daily sedation holidays, continue daily x-rays, daily labs, continue nutritional support, ventilatory support, prognosis is definitely guarded. Discussed her condition with family and with the independent living specialist on the case. Critical care time is 36 months. V Time with Patient: Greater than 30
[2018-10-23] MEDS ORDERED: DEXTROSE 5% IN WATER 100 ML with AMIODARONE 150 MG IV ONE (14:14)
[2018-10-23] MEDS ORDERED: AMIODARONE 360 MG in DEXTROSE 5% IN WATER 200 ML IV ONE ×2 (14:15)
[2018-10-23] MEDS: AMIODARONE 300 MG in DEXTROSE 5% IN WATER 250 ML IV SCH ×2 (15:00)
[2018-10-23 17:21] LABS: Glucose,Whole Blood 259 mg/dL (75-99)
[2018-10-23] MEDS ORDERED: INSULIN ASPART (NovoLOG) 100 UNIT/ML VIAL SQ ONE (17:51)
--- NOTE | 2018-10-23 22:01 | PN ---
PROGRESS NOTE DATE OF SERVICE: 10/23/2018. This 58-year-old woman who was admitted with acute bilateral pneumonia also had bronchoscopy. Patient failed weaning today. Again, patient having difficulty breathing. The patient also had baseline bronchial asthma as well the patient closely monitored. Patient mechanically ventilated and sedated. The patient is on assist- control mode 50% FiO2 and 5 PEEP. Multiple consultants including Nephrology, Cardiology and Pulmonary, Dr. Wyman is following the patient closely. The patient also had paroxysmal atrial fibrillation also and currently normal sinus rhythm. The patient also has hematuria which is also controlled. Anticoagulants on hold at this time. PAST MEDICAL HISTORY: Reviewed. REVIEW OF SYSTEMS: Could not be taken. The patient mechanically ventilated and sedated. CURRENT MEDICATIONS: Noted and include: 1. Tylenol 650 q.4 p.r.n. 2. DuoNeb q.i.d. and p.r.n. 3. Cordarone 200 mg p.o. b.i.d. 4. Amiodarone drip. 5. Norvasc 2.5 mg. 6. Lipitor 40 mg b.i.d. 7. Pulmicort 1 mg b.i.d. 9. Lomotil. 11.Magnesium oxide. 12.Solu-Medrol 40 IV q.6h. 13.Lopressor. 14.Replacement protocols. 15.Zosyn 3.375 IV q.8 hours. 16.Zoloft. PHYSICAL EXAMINATION: Patient is mechanically ventilated and sedated. Pulse is 86, blood pressure 140/70, respirations 21, temperature 99.4, pulse ox 94% on mechanical ventilation, 50% FiO2, 5 PEEP, other vent settings are noted. HEENT: Conjunctivae normal. Oral mucosa moist. NECK is no jugular venous distention. No carotid bruit. No lymph node enlargement. Cardiovascular: S1, S2 muffled. Respirations: Breath sounds diminished in the bases. Bilateral scattered rhonchi and crackles. ABDOMEN: Soft, obese, nontender. LEGS: No edema. No swelling. NERVOUS SYSTEM: The patient mechanically ventilated and sedated. LAB STUDIES: WBC 6.8, hemoglobin 10.5. ABGs noted. Sodium 140, potassium 4.9, albumin is 2.4. ASSESSMENT: 1. Acute right lower lobe pneumonia possibly community-acquired with severe sepsis, septic shock. 2. Change in mental status acute metabolic encephalopathy, possible sepsis present on admission. 3. Acute hypoxic hypercarbic respiratory failure secondary to pneumonia, bronchial asthma, present on admission. 4. Bronchial asthma, acute exacerbation, present on admission. 5. Paroxysmal atrial fibrillation currently normal sinus rhythm. 6. Hematuria. 7. Adenovirus on bronchoscopy. 8. Atelectasis of the right lower lobe. 9. Acute kidney injury, multifactorial. 10.Metabolic encephalopathy, change in mental status. 11.Hyponatremia, hypovolemic hyponatremia. 12.8 mm posteriorly nodule in the right breast in the CT scan for outpatient followup. 13.Diabetes mellitus type 2. 14.Hyperlipidemia. 15.Lactic acidosis. 16.Hypertension. 17.CAPD possibly. 18.Episode of atrial fibrillation paroxysmal. 19.Increased creatinine with possible acute renal failure possibly secondary to prerenal factors and acute tubular necrosis. RECOMMENDATIONS AND DISCUSSION: Recommend to continue current medications, symptomatic treatment. Patient on broad spectrum IV antibiotics. I recommend to continue current treatment with bronchodilators. Continue intensive steroids and I would also recommend monitor fluid and electrolytes balance closely. We will continue to monitor. Monitor blood sugars closely. Currently patient is on Levemir 35 units. The blood sugars are fairly well controlled. Creatinine is 1.52. ABGs noted. Patient failed weaning again as mentioned earlier. Prognosis guarded. Continue to monitor. Further recommendations to follow. MMODL / IJN: [id number] / ANNA
[2018-10-23 22:58] LABS: Glucose,Whole Blood 314 mg/dL (75-99)
[2018-10-23] MEDS: INSULIN DETEMIR (LEVEMIR) 100 UNIT/ML SYR SQ SCH (23:04)
[2018-10-23] MEDS: SERTRALINE 50 MG TAB PO SCH (23:12)
[2018-10-23] MEDS: MONTELUKAST 10 MG TAB PO SCH (23:12)
[2018-10-23] MEDS: ATORVASTATIN 40 MG TAB PO SCH (23:13)
[2018-10-23] MEDS: INSULIN REGULAR 100 UNIT in SODIUM CHLORIDE 0.9% 100 ML IV SCH (23:26)
[2018-10-24 00:02] LABS: Glucose,Whole Blood 270 mg/dL (75-99)
[2018-10-24] MEDS: AMIODARONE 300 MG in DEXTROSE 5% IN WATER 250 ML IV SCH ×2 (00:06)
[2018-10-24] MEDS: methylPREDNISolone SOD SUCCI 40 MG/ML 1 ML VIAL IV SCH ×4 (00:35→18:12)
[2018-10-24] MEDS: SODIUM CHLORIDE 0.9% 1,000 ML IV SCH ×3 (00:37→18:53)
[2018-10-24 01:01] LABS: Glucose,Whole Blood 213 mg/dL (75-99)
[2018-10-24 02:00] LABS: Glucose,Whole Blood 209 mg/dL (75-99)
[2018-10-24] MEDS: PROPOFOL 1,000 MG in EMPTY BAG 1 BAG IV SCH ×6 (02:14→23:40)
[2018-10-24 03:17] LABS: Glucose,Whole Blood 184 mg/dL (75-99)
[2018-10-24 04:26] LABS: Glucose,Whole Blood 159 mg/dL (75-99)
[2018-10-24 04:26] LABS: Mycoplasma IgM Antibody 0.09 INDEX (<=0.90)
[2018-10-24 04:27] LABS: ABG Base Excess -1.9 mmol/L; ABG HCO3 24 mmol/L (21-25); ABG PCO2 46 mmHg (35-45); ABG PH 7.33 (7.35-7.45); ABG PO2 82 mmHg (83-108); ABG TCO2 26 mmol/L (19-24); Allen Test Performed? Yes
[2018-10-24] MEDS: PIPERACILLIN-TAZOBACTAM 3.375 GM in SODIUM CHLORIDE 0.9% 100 ML IVPB SCH ×3 (04:55→21:46)
[2018-10-24 05:04] LABS: Glucose,Whole Blood 166 mg/dL (75-99)
[2018-10-24 05:17] LABS: HCT 32.8 % (34.0-46.0); HGB 10.3 gm/dL (11.4-16.0); Hypochromasia Marked; MCH 28.8 pg (25.0-35.0); MCHC 31.5 g/dL (31.0-37.0); MCV 91.7 fL (80.0-100.0); Mean Platelet Volume 7.2; Platelet Count 626 k/uL (150-450); RBC 3.58 m/uL (3.80-5.40); RDW 14.8 % (11.5-15.5); WBC 11.9 k/uL (3.8-10.6)
[2018-10-24 05:24] LABS: Albumin 2.6 g/dL (3.5-5.0); Calcium 8.3 mg/dL (8.4-10.2); Potassium 4.8 mmol/L (3.5-5.1); Total Bilirubin 0.3 mg/dL (0.2-1.3); Total Protein 5.2 g/dL (6.3-8.2)
[2018-10-24 06:06] LABS: Glucose,Whole Blood 174 mg/dL (75-99)
[2018-10-24] MEDS: NOREPINEPHRINE 4 MG in SODIUM CHLORIDE 0.9% 250 ML IV SCH ×2 (06:12→20:41)
[2018-10-24 06:51] LABS: Glucose,Whole Blood 173 mg/dL (75-99)
[2018-10-24] MEDS: IPRATROPIUM-ALBUTEROL 3 ML NEB INHALATION SCH ×4 (07:35→19:31)
[2018-10-24] MEDS: BUDESONIDE 1 MG/2 ML NEBU INHALATION SCH ×2 (07:35→19:31)
[2018-10-24 08:01] LABS: Glucose,Whole Blood 148 mg/dL (75-99)
[2018-10-24] MEDS: CHLORHEXIDINE GLUCONATE 15 ML CUP MUCOUS MEM SCH ×2 (08:42→21:46)
[2018-10-24] MEDS: MAGNESIUM OXIDE 400 MG TAB PO SCH (08:42)
[2018-10-24] MEDS: AMIODARONE 200 MG TAB PO SCH ×2 (08:42→21:47)
[2018-10-24] MEDS: amLODIPine 2.5 MG TAB PO SCH (08:42)
[2018-10-24] MEDS: MAG HYDROX/AL HYDROX/SIMETH 30 ML, LIDOCAINE VISCOUS 30 ML, NYSTATIN 100,000 UNIT/ML SU... PO SCH ×15 (08:42→22:09)
[2018-10-24] MEDS: PANTOPRAZOLE 40 MG/10 ML VIAL IVP SCH ×2 (08:42→21:46)
[2018-10-24] MEDS: METOPROLOL TARTRATE 25 MG TAB PO SCH ×2 (08:45→21:47)
[2018-10-24 09:29] LABS: Glucose,Whole Blood 154 mg/dL (75-99)
--- NOTE | 2018-10-24 09:47 | P.PN ---
Subjective Patient is seen in follow-up for acute kidney injury. Baseline creatinine is near 1. It peaked at 1.6 on this admission and is down to 1.27 today. Patient went into hypercapnic respiratory failure and was subsequently intubated on October 19. Remains intubated. She is off vasopressors. Maintained on IV fluids. She is nonoliguric. Currently being treated for pneumonia. She is on oral amiodarone for A. fib. Heart rate is controlled. Vital signs are stable. General: The patient appeared well nourished and normally developed. HEENT: Head exam is unremarkable. Neck is without jugular venous distension. Intubated. LUNGS: Breath sounds decreased. HEART: Rate and Rhythm are regular. First and second heart sounds normal. No murmurs, rubs or gallops. ABDOMEN: Abdominal exam reveals normal bowel sounds. Non-tender. EXTREMITITES: Trace edema. Objective - Vital Signs Vital signs: Vital Signs Temp 98.9 F 10/24/18 08:00 Pulse 82 10/24/18 09:00 Resp 22 10/24/18 09:00 BP 144/79 10/24/18 09:00 Pulse Ox 93 L 10/24/18 09:00 Intake & Output 10/23/18 10/24/18 10/24/18 18:59 06:59 18:59 Intake Total 2462.375 2217.610 683.427 Output Total 1350 1230 315 Balance 1112.375 987.610 368.427 Weight 99.6 kg Intake: IV 1200 1000 275 Dextrose 5% in Water 100 100 ml @ 618 mls/hr IV .Q10M ONE with Amiodarone 150 mg Rx#:[id number] Piperacillin-Tazobactam 3 200 100 .375 gm In Sodium Chloride 0.9% 100 ml @ 25 mls/hr IVPB Q8H TAMIR Rx#: [id number] Sodium Chloride 0.9% 1, 900 900 275 000 ml @ 100 mls/hr IV . Q10H TAMIR Rx#:[id number] Intake, IV Titration 252.375 653.610 294.427 Amount Amiodarone 300 mg In 227.5 185 Dextrose 5% in Water 250 ml @ 0.5 MG/MIN 25 mls/hr IV .Q10H TAMIR Rx#: [id number] Insulin Regular 100 unit 57.688 9.427 In Sodium Chloride 0.9% 100 ml @ Per Protocol IV .Q0M TAMIR Rx#:[id number] Propofol 1,000 mg In 252.375 368.422 100 Empty Bag 1 bag @ Titrate IV .Q0M TAMIR Rx#: [id number] Tube Feeding 630 504 84 Other 380 60 30 Output: Urine 1350 1180 315 Stool 50 Other: Voiding Method Indwelling Catheter Indwelling Catheter Indwelling Catheter # Bowel Movements 1 - Labs CBC & Chem 7: 10/24/18 04:57 10/24/18 04:57 Labs: Abnormal Lab Results - Last 24 Hours (Table) 10/23/18 10/23/18 10/23/18 Range/Units 11:07 17:19 22:56 WBC (3.8-10.6) k/uL RBC (3.80-5.40) m/uL Hgb (11.4-16.0) gm/dL Hct (34.0-46.0) % Plt Count (150-450) k/uL ABG pH (7.35-7.45) ABG pCO2 (35-45) mmHg ABG pO2 (83-108) mmHg ABG Total CO2 (19-24) mmol/L Chloride (98-107) mmol/L BUN (7-17) mg/dL Creatinine (0.52-1.04) mg/dL Glucose (74-99) mg/dL POC Glucose (mg/dL) 175 H 259 H 314 H (75-99) mg/dL Calcium (8.4-10.2) mg/dL Total Protein (6.3-8.2) g/dL Albumin (3.5-5.0) g/dL 10/24/18 10/24/18 10/24/18 Range/Units 00:00 01:00 01:58 WBC (3.8-10.6) k/uL RBC (3.80-5.40) m/uL Hgb (11.4-16.0) gm/dL Hct (34.0-46.0) % Plt Count (150-450) k/uL ABG pH (7.35-7.45) ABG pCO2 (35-45) mmHg ABG pO2 (83-108) mmHg ABG Total CO2 (19-24) mmol/L Chloride (98-107) mmol/L BUN (7-17) mg/dL Creatinine (0.52-1.04) mg/dL Glucose (74-99) mg/dL POC Glucose (mg/dL) 270 H 213 H 209 H (75-99) mg/dL Calcium (8.4-10.2) mg/dL Total Protein (6.3-8.2) g/dL Albumin (3.5-5.0) g/dL 10/24/18 10/24/18 10/24/18 Range/Units 03:15 04:25 04:25 WBC (3.8-10.6) k/uL RBC (3.80-5.40) m/uL Hgb (11.4-16.0) gm/dL Hct (34.0-46.0) % Plt Count (150-450) k/uL ABG pH 7.33 L (7.35-7.45) ABG pCO2 46 H (35-45) mmHg ABG pO2 82 L (83-108) mmHg ABG Total CO2 26 H (19-24) mmol/L Chloride (98-107) mmol/L BUN (7-17) mg/dL Creatinine (0.52-1.04) mg/dL Glucose (74-99) mg/dL POC Glucose (mg/dL) 184 H 159 H (75-99) mg/dL Calcium (8.4-10.2) mg/dL Total Protein (6.3-8.2) g/dL Albumin (3.5-5.0) g/dL 10/24/18 10/24/18 10/24/18 Range/Units 04:57 04:57 05:02 WBC 11.9 H (3.8-10.6) k/uL RBC 3.58 L (3.80-5.40) m/uL Hgb 10.3 L (11.4-16.0) gm/dL Hct 32.8 L (34.0-46.0) % Plt Count 626 H (150-450) k/uL ABG pH (7.35-7.45) ABG pCO2 (35-45) mmHg ABG pO2 (83-108) mmHg ABG Total CO2 (19-24) mmol/L Chloride 114 H (98-107) mmol/L BUN 47 H (7-17) mg/dL Creatinine 1.27 H (0.52-1.04) mg/dL Glucose 172 H (74-99) mg/dL POC Glucose (mg/dL) 166 H (75-99) mg/dL Calcium 8.3 L (8.4-10.2) mg/dL Total Protein 5.2 L (6.3-8.2) g/dL Albumin 2.6 L (3.5-5.0) g/dL 10/24/18 10/24/18 10/24/18 Range/Units 06:05 06:49 07:58 WBC (3.8-10.6) k/uL RBC (3.80-5.40) m/uL Hgb (11.4-16.0) gm/dL Hct (34.0-46.0) % Plt Count (150-450) k/uL ABG pH (7.35-7.45) ABG pCO2 (35-45) mmHg ABG pO2 (83-108) mmHg ABG Total CO2 (19-24) mmol/L Chloride (98-107) mmol/L BUN (7-17) mg/dL Creatinine (0.52-1.04) mg/dL Glucose (74-99) mg/dL POC Glucose (mg/dL) 174 H 173 H 148 H (75-99) mg/dL Calcium (8.4-10.2) mg/dL Total Protein (6.3-8.2) g/dL Albumin (3.5-5.0) g/dL 10/24/18 Range/Units 09:09 WBC (3.8-10.6) k/uL RBC (3.80-5.40) m/uL Hgb (11.4-16.0) gm/dL Hct (34.0-46.0) % Plt Count (150-450) k/uL ABG pH (7.35-7.45) ABG pCO2 (35-45) mmHg ABG pO2 (83-108) mmHg ABG Total CO2 (19-24) mmol/L Chloride (98-107) mmol/L BUN (7-17) mg/dL Creatinine (0.52-1.04) mg/dL Glucose (74-99) mg/dL POC Glucose (mg/dL) 154 H (75-99) mg/dL Calcium (8.4-10.2) mg/dL Total Protein (6.3-8.2) g/dL Albumin (3.5-5.0) g/dL Microbiology - Last 24 Hours (Table) 10/21/18 13:00 Gram Stain - Final Bronchial Washings - Left Bronchial Washings Culture - Final Assessment and Plan Plan: Assessment: 1. Acute kidney injury secondary to ATN secondary to hemodynamic instability, contrast-induced nephropathy and sepsis. Baseline creatinine 1. Creatinine peaked at 1.6 on this admission and is down to 1.27 today. Trace proteinuria noted on UA. 2. Mild volume overload. Better. 3. Septic shock secondary to pneumonia maintained on antibiotics. Currently off Levophed. Sputum culture positive for Aminta. 4. A. fib with RVR. Currently rate controlled. Maintain on oral amiodarone and Lopressor. Also on anticoagulation. Cardiology following. 5. Insulin-dependent diabetes mellitus. 6. Acute hypercapnic respiratory failure. 7. Metabolic acidosis secondary to acute kidney injury. Better. Plan: Maintain normal saline at 100 mL an hour - can likely lower the rate tomorrow. She is also on tube feeding. Avoid nephrotoxins. Discontinued Toradol. Continue to monitor renal function and urine output.
[2018-10-24 09:59] LABS: Glucose,Whole Blood 157 mg/dL (75-99)
--- NOTE | 2018-10-24 10:50 | XR ---
EXAMINATION TYPE: XR chest 1V portable DATE OF EXAM: 10/24/2018 COMPARISON: Prior chest x-ray 10/23/2018 HISTORY: Intubated TECHNIQUE: Single frontal view of the chest is obtained. FINDINGS: Endotracheal tube, orogastric tube are overlying appropriate positions. Pleural parenchyma l changes are similar to prior exam, the right hemidiaphragm is obscured as is the left. There is no evident pneumothorax. Heart size is likely stable. There are overlying cardiac leads. IMPRESSION: Suspect pleural effusion and associated atelectasis, correlate for pneumonia, cannot exc lude an underlying mass. Follow-up to resolution.
[2018-10-24 10:57] LABS: Glucose,Whole Blood 151 mg/dL (75-99)
--- NOTE | 2018-10-24 11:02 | PN ---
PROGRESS NOTE PULMONARY/CRITICAL CARE PROGRESS NOTE: CRITICAL CARE TIME: More than 30 minutes. This is a 58-year-old female who was apparently admitted back on October 14 with sepsis and pneumonia. On October 19, she was intubated for respiratory failure. She had a bronchoscopy performed on October 21. My partner saw her yesterday in followup. She has acute hypoxemic and hypercapnic respiratory failure secondary to acute bilateral pneumonia. In addition, she has acute sepsis secondary to pneumonia. Her norepinephrine has been weaned off. She also has a history of diabetes mellitus type 2, COPD/asthma and right-sided pleural effusion. The patient currently remains on the ventilator with volume assist-control mode rate of 20, tidal volume 450, FiO2 of 55%, PEEP of 5. Blood gases show pO2 of 82, pCO2 of 46, pH 7.32. Because of patient's ventilator dyssynchrony/asynchrony, she was switched to the pressure regulated volume control modality or VC plus modality. Respiratory rate 24, tidal volume is targeted at 400, inspiratory time one second, FiO2 of 55%, PEEP of 8. She is on Diprivan at 50 mcg/kg per minute, 0.9 at 100 mL an hour, insulin drip at 5 units an hour and Vital high-protein at 42 with a goal of 42 mL an hour. Currently resting comfortably and I did ask the nurse to do a daily interruption of sedation. PHYSICAL EXAMINATION: VITAL SIGNS: Current vital signs include a temperature 98.9, heart rate 72, respiratory rate 22, blood pressure 144/79, mean 100, saturation 93%, FiO2 of 55. Appears in no acute distress. Again, currently heavily sedated. On the mechanical ventilator. HEENT: Examination is grossly unremarkable. There is an orally placed endotracheal tube and NG tube. NECK: Supple. Full range of motion. No adenopathy. CARDIOVASCULAR: Examination reveals regular rhythm and rate. S1, S2 normal. No S3, S4, or murmur. LUNGS: Reveal a few scattered rhonchi. No wheezes. No crackles. Breath sounds are diminished throughout. ABDOMEN: Soft. Bowel sounds are heard. EXTREMITIES: Are intact. No cyanosis, clubbing, or edema. SKIN: Without rash. NEUROLOGIC: Examination could not be adequately assessed. The patient remains on multiple drips as mentioned above, including at the time of the evaluation, amiodarone, Diprivan, 0.9, insulin and vital high-protein. Since that time, amiodarone has been turned off. A chest x-ray was done this morning. It shows a nearly clear left lung, but significant disease particularly on the right side. There is also a right-sided pleural effusions and some atelectasis or infiltrate at the left lung base. Microbiologic studies are all negative thus far. Lab data is reviewed. White count is 11.9, hemoglobin 10.3, hematocrit 32.8, platelet count 626,000. Sodium 142, potassium 4.8, chloride 114, CO2 of 23. Anion gap is normal at 5. BUN and creatinine were 47 and 1.27. The rest of the labs look okay. Medications are reviewed. ASSESSMENT: 1. Acute hypoxemic hypercapnic respiratory failure secondary to bilateral pneumonia, right greater than left, requiring intubation and mechanical ventilation on October 19. 2. Initial admission for sepsis and pneumonia. 3. Hypotension secondary to sepsis. 4. Diabetes mellitus type 2. 5. History of asthma/chronic obstructive pulmonary disease. 6. History of acute hypoxemic respiratory failure. 7. Right-sided pleural effusion. 8. Multiple other medical problems and comorbidities. PLAN: The patient has been weaned off the amiodarone. The patient was going to have a daily interruption of sedation. We did switch over to the VC plus modality. The targeted tidal volume is 400, inspiratory time one second, respiratory rate 24, FiO2 55%, PEEP of 8, PEEP bump was from 5 to 8. Additional recommendations and suggestions are forthcoming. Hopefully we will be able to drop the FiO2. If not, we will increase the PEEP. Labs, x-rays and medications are all reviewed. Microbiology is thus far negative. CRITICAL CARE TIME: More than 30 minutes. MMODL / IJN: [id number] /
[2018-10-24] MEDS: LORazepam 2 MG/ML INJ IV PRN ×2 (11:25→18:18)
[2018-10-24 11:59] LABS: Glucose,Whole Blood 152 mg/dL (75-99)
--- NOTE | 2018-10-24 12:23 | PN ---
PROGRESS NOTE Mrs. Cota is doing a little better today. She is in sinus rhythm. We attempted to wean her yesterday and then she went into atrial fib, but she is back in sinus today. Her urine has cleared up. There is not much bleeding. Hemoglobin is reasonably stable. I will restart Eliquis at 2.5 mg b.i.d. this evening and increase the IV fluids to 100 mL/hour. S1-S2 heard normally, short systolic murmur noted. Lungs reveal fair air entry with the ventilator. Abdomen is soft. Lower extremities reveal diminished pulses. Prognosis remains guarded. The weaning efforts will probably be restarted today or tomorrow. We will resume Eliquis. MMODL / IJN: [id number] /
[2018-10-24 13:03] LABS: Glucose,Whole Blood 153 mg/dL (75-99)
[2018-10-24] MEDS: INSULIN REGULAR 100 UNIT in SODIUM CHLORIDE 0.9% 100 ML IV SCH (13:12)
[2018-10-24 14:00] LABS: Glucose,Whole Blood 150 mg/dL (75-99)
--- NOTE | 2018-10-24 14:32 | CDI ---
Documentation Clarification Form Date: 10/24/2018 2:24:53 PM From: Akanksha Muhammad RN, CCDS Admit Date: 10/14/2018 3:33:00 AM Patient Name: Aniya Cota Visit Number: [id number] ATTENTION: The Clinical Documentation Specialists (CDI) and [facility] Coding Staff appreciate your assistance in clarifying documentation. Please respond to the clarification below the line at the bottom and electronically sign. The CDI & [facility] Coding staff will review the response and follow-up if needed. Please note: Queries are made part of the Legal Health Record. If you have any questions, please contact the author of this message via ITS. Dr. Delbert Alonso declining Hgb and Hct since admission has been noted, please provide further specificity to accurately reflect your patients severity of condition and clarification is needed. History/Risk Factors: Sepsis with septic shock, IDA with ATN, COPD< a hypoxemic respiratory failure Clinical indicators: Hemoglobin: 12.5/11.9/11.7/9.5/10.3 Hematocrit: 38.6/36.4/39/38/30.5/32.8 Treatment: Am daily lab monitoring In order to capture the severity of condition, please clarify the type of anemia and etiology if known: Acute blood loss anemia Acute on chronic blood loss anemia Chronic blood loss anemia Iron deficiency anemia Hemolytic anemia Drug induced anemia Nutritional anemia Anemia of chronic kidney disease Anemia d/t chronic disease (please specify chronic disease) Unable to determine Other, please specify (Last Revision: January 2017) Unable to determine MTDD
[2018-10-24 15:04] LABS: Glucose,Whole Blood 173 mg/dL (75-99)
[2018-10-24 15:52] LABS: Glucose,Whole Blood 179 mg/dL (75-99)
--- NOTE | 2018-10-24 16:23 | PN ---
PROGRESS NOTE DATE OF SERVICE: 10/24/2018 This 58-year-old woman who was admitted with bilateral pneumonia had bronchoscopy. The patient failed weaning on multiple occasions. The patient is being closely monitored. Sedation hold is being attempted. Dr. Duran is following the patient closely. The patient is mechanically ventilated and sedated at this time. Multiple consultants, including Cardiology, are also following the patient. The patient also had paroxysmal atrial fibrillation, currently in normal sinus rhythm. Eliquis has been initiated. Past medical history reviewed. REVIEW OF SYSTEMS: CARDIOVASCULAR SYSTEM: As mentioned earlier. RESPIRATORY SYSTEM: As mentioned earlier. GI: No nausea, vomiting. : No dysuria or retention. NERVOUS SYSTEM: No numbness, weakness. CURRENT MEDICATIONS: Reviewed. They include: 1. Tylenol 650 q.4 p.r.n. 2. DuoNeb q.i.d. and p.r.n. 3. Cordarone 200 mg p.o. b.i.d. 4. Norvasc 2.5 mg daily. 5. Eliquis 2.5 mg b.i.d. 6. Lipitor 40 mg at bedtime. 7. Pulmicort 1 mg b.i.d. 8. Calmoseptine. 9. Peridex 15 mL b.i.d. 10.Lomotil 1 q.6 p.r.n. 11.Ativan 0.5 q.3 p.r.n. 12.Solu-Medrol 40 IV q.6. 13.Lopressor 25 mg p.o. b.i.d. 14.Singulair 10 mg at bedtime. 15.Protonix. 16.Zosyn 3.375 IV q.8. 17.Propofol. 18.Zoloft. PHYSICAL EXAMINATION: Patient is mechanically ventilated and sedated. Pulse is 88, blood pressure 152/84, respiration 26, temperature normal, pulse ox 94% on 5 L. HEENT: Conjunctivae normal. NECK: No jugular venous distention. CARDIOVASCULAR SYSTEM: S1, S2 muffled. RESPIRATORY SYSTEM: Breath sounds diminished at the bases. Bilateral scattered rhonchi and crackles. ABDOMEN: Soft, non-tender. LEGS: No edema. No swelling. NERVOUS SYSTEM: Patient is mechanically ventilated and sedated. LABS: Labs at this time show glucose 153 and 150. WBC 11.9, hemoglobin 10.9. ABGs noted. Creatinine is 1.27. ASSESSMENT: 1. Acute right lower lobe pneumonia, possibly community-acquired, with severe sepsis, septic shock, present on admission. 2. Change in mental status with acute metabolic encephalopathy with possible sepsis, present on admission. 3. Acute hypoxic hypercarbic respiratory failure secondary to pneumonia, bronchial asthma, present on admission. 4. Bronchial asthma, acute exacerbation, present on admission. 5. Adenovirus on bronchoscopy. 6. Fungus from sputum cultures. 7. Paroxysmal atrial fibrillation, currently normal sinus rhythm, on Eliquis. 8. Hematuria, improved. 9. Atelectasis of the right lower lobe. 10.Acute kidney injury, multifactorial. 11.Metabolic encephalopathy with change in mental status. 12.Hyponatremia; hypovolemic hyponatremia. 13.Posterior nodule measuring 8 mm in the right breast on CT scan, for outpatient followup. 14.Diabetes mellitus, type 2. 15.Hyperlipidemia. 16.Lactic acidosis. 17.Hypertension. 18.History of chronic obstructive pulmonary disease, possibly. 19.Episodes of atrial fibrillation, paroxysmal. 20.Increased creatinine with possible acute renal failure, possibly secondary to prerenal factors and acute tubular necrosis. RECOMMENDATIONS AND DISCUSSION: At this time I recommend to continue current medications, continue with the monitoring, symptomatic treatment. Continue the bronchodilators. Continue the empiric antibiotics. Closely follow with Infectious Disease regarding the above-mentioned medical issues. Otherwise, mycoplasma and legionella are negative. Guarded prognosis because of multiple complex medical issues. Further recommendations to follow. The vent settings are noted. PEEP was increased to 8 today. PEDRO / SUNDARN: [id number] /
[2018-10-24 16:55] LABS: Glucose,Whole Blood 152 mg/dL (75-99)
[2018-10-24 18:10] LABS: Glucose,Whole Blood 174 mg/dL (75-99)
[2018-10-24 18:58] LABS: Glucose,Whole Blood 150 mg/dL (75-99)
[2018-10-24 20:10] LABS: Glucose,Whole Blood 149 mg/dL (75-99)
[2018-10-24 21:34] LABS: Glucose,Whole Blood 177 mg/dL (75-99)
[2018-10-24] MEDS: ATORVASTATIN 40 MG TAB PO SCH (21:47)
[2018-10-24] MEDS: APIXABAN 2.5 MG TABLET PO SCH (21:47)
[2018-10-24] MEDS: SERTRALINE 50 MG TAB PO SCH (21:47)
[2018-10-24] MEDS: MONTELUKAST 10 MG TAB PO SCH (21:47)
--- NOTE | 2018-10-24 21:50 | P.PN ---
Subjective Progress Note Date: 10/24/18 58 -year-old female with history of diabetes mellitus type 2 generally is completely independent relates to approximate 4 day history of feeling poorly. She started to feel fever chills generalized malaise cough with yellowish sputum production and no hemoptysis. Her fever increased she felt w eak and confused and was brought to the emergency center. There she has not evidence of a high-grade fever leukocytosis and sepsis as well as atrial fibrillation, she was treated with a dose of Cardizem with hydration and resolution of her A. fib. The patient continued to feel ill continue to have ongoing fevers because of the consult was requested. At the time of the consult antibiotic therapy was altered and anti-inflammatory with Toradol was requested and the patient is feeling considerably better today. After the first dorsal Toradol her sugar went from 103.5-99.5. The highest it's been so far today is 101.5. Patient does feel poorly still. She has shortness of breath or oxygen therapy she has cough without much sputum production or hemoptysis does have discomfort in her chest with coughing. 10/17/2018 the patient had significant worsening of her status overnight. She developed atrial fibrillation with a rapid ventricular response and was brought to the intensive care unit has been treated with Cardizem and amiodarone. She has had an improvement of her cardiac dysrhythmia and is somewhat less short of breath. She had further fever which is now much improved since her transfer to the intensive care unit. She relates she still feels poorly but better than last night. She is not having chest pain. No chills or rigors are occurring at this time. 10/18/2018 patient is now feeling somewhat better. She is much less short of breath. Fevers have resolved. Cardiac dysrhythmia has improved. Leukocytosis is also improving. 10/19/2018 has further improvement. She is however quite sleepy today. Atrial fibrillation is improved. Leukocytosis improving. Appetite still somewhat poor and other than fatigue has improved. 10/20/2018 the patient now has a significant worsening of her status. She really developed respiratory failure last evening her current intubation sedation mechanical ventilation in addition of vasopressor therapy. She's been seen by pulmonary critical care. Her significant cardiac dysrhythmia does seem to be more stable at this time. Oxygenation is improved. Renal failure has worsened. 10/21/2018 the patient has had little change in her status. However bronchoscopy has been performed for further treatment and diagnosis of her pneumonia and respiratory failure. She tolerated the procedure well only 2 changes are of renal failure vancomycin has been discontinued at this time pending further culture results. She's had one further fever overnight of 101.1 better today. Leukocytosis is improving. No other new acute changes 10/24/2018 patient has had some ventilator changes today. She is afebrile. Is no longer on vasopressor therapy or IV amiodarone. Objective - Vital Signs Vital signs: Vital Signs Temp 99.0 F 10/24/18 20:00 Pulse 79 10/24/18 21:30 Resp 19 10/24/18 21:30 BP 133/61 10/24/18 21:30 Pulse Ox 93 L 10/24/18 21:30 Intake & Output 10/24/18 10/24/18 10/25/18 06:59 18:59 06:59 Intake Total 2217.610 2455.473 356 Output Total 1230 1500 275 Balance 987.610 955.473 81 Weight 100.344 kg Intake: IV 1000 1275 200 Piperacillin-Tazobactam 3 100 100 .375 gm In Sodium Chloride 0.9% 100 ml @ 25 mls/hr IVPB Q8H [facility] Rx#: [id number] Sodium Chloride 0.9% 1, 900 1175 200 000 ml @ 100 mls/hr IV . Q10H [facility] Rx#:[id number] Intake, IV Titration 653.610 526.473 Amount Amiodarone 300 mg In 227.5 185 Dextrose 5% in Water 250 ml @ 0.5 MG/MIN 25 mls/hr IV .Q10H [facility] Rx#: [id number] Insulin Regular 100 unit 57.688 52.418 In Sodium Chloride 0.9% 100 ml @ Per Protocol IV .Q0M [facility] Rx#:[id number] Propofol 1,000 mg In 368.422 289.055 Empty Bag 1 bag @ Titrate IV .Q0M [facility] Rx#: [id number] Tube Feeding 504 504 126 Other 60 150 30 Output: Urine 1180 1500 275 Stool 50 Other: Voiding Method Indwelling Catheter Indwelling Catheter - Exam 58 -year-old woman, she is now intubated sedated and mechanically ventilated off of vasopressor therapy HEENT: Anicteric conjunctiva are pink and moist nasal mucosa grossly intact without significant lesions, there is no thrush. Neck: The neck is supple without significant lymphadenopathy or thyromegaly. Lungs: Symmetrical bilateral air entry,there is some evidence of air entry with some crackles noted a few crackles at the right posterior mid zone, posterior left lower zone also with crackles no distinct egophony nor dullness in either area some expiratory wheezes are scattered Heart: Rhythm is regular with an audible S1-S2, no S3 no S4. There is no significant murmur click or rub, PMI was nondisplaced. Abdomen: Obese, Positive bowel sounds soft and nontender without palpable masses or organomegaly. There was no guarding or rebound. Extremities: The upper extremities have excellent pulses they are symmetric, no significant petechiae or telangiectasia. No splinter hemorrhages were noted. His also lower extremity edema no open ulcerations Neuro: She is sedated and mechanically ventilated - Labs CBC & Chem 7: 10/24/18 04:57 10/24/18 04:57 Labs: Abnormal Lab Results - Last 24 Hours (Table) 10/23/18 10/24/18 10/24/18 Range/Units 22:56 00:00 01:00 WBC (3.8-10.6) k/uL RBC (3.80-5.40) m/uL Hgb (11.4-16.0) gm/dL Hct (34.0-46.0) % Plt Count (150-450) k/uL ABG pH (7.35-7.45) ABG pCO2 (35-45) mmHg ABG pO2 (83-108) mmHg ABG Total CO2 (19-24) mmol/L Chloride (98-107) mmol/L BUN (7-17) mg/dL Creatinine (0.52-1.04) mg/dL Glucose (74-99) mg/dL POC Glucose (mg/dL) 314 H 270 H 213 H (75-99) mg/dL Calcium (8.4-10.2) mg/dL Total Protein (6.3-8.2) g/dL Albumin (3.5-5.0) g/dL 10/24/18 10/24/18 10/24/18 Range/Units 01:58 03:15 04:25 WBC (3.8-10.6) k/uL RBC (3.80-5.40) m/uL Hgb (11.4-16.0) gm/dL Hct (34.0-46.0) % Plt Count (150-450) k/uL ABG pH 7.33 L (7.35-7.45) ABG pCO2 46 H (35-45) mmHg ABG pO2 82 L (83-108) mmHg ABG Total CO2 26 H (19-24) mmol/L Chloride (98-107) mmol/L BUN (7-17) mg/dL Creatinine (0.52-1.04) mg/dL Glucose (74-99) mg/dL POC Glucose (mg/dL) 209 H 184 H (75-99) mg/dL Calcium (8.4-10.2) mg/dL Total Protein (6.3-8.2) g/dL Albumin (3.5-5.0) g/dL 10/24/18 10/24/18 10/24/18 Range/Units 04:25 04:57 04:57 WBC 11.9 H (3.8-10.6) k/uL RBC 3.58 L (3.80-5.40) m/uL Hgb 10.3 L (11.4-16.0) gm/dL Hct 32.8 L (34.0-46.0) % Plt Count 626 H (150-450) k/uL ABG pH (7.35-7.45) ABG pCO2 (35-45) mmHg ABG pO2 (83-108) mmHg ABG Total CO2 (19-24) mmol/L Chloride 114 H (98-107) mmol/L BUN 47 H (7-17) mg/dL Creatinine 1.27 H (0.52-1.04) mg/dL Glucose 172 H (74-99) mg/dL POC Glucose (mg/dL) 159 H (75-99) mg/dL Calcium 8.3 L (8.4-10.2) mg/dL Total Protein 5.2 L (6.3-8.2) g/dL Albumin 2.6 L (3.5-5.0) g/dL 10/24/18 10/24/18 10/24/18 Range/Units 05:02 06:05 06:49 WBC (3.8-10.6) k/uL RBC (3.80-5.40) m/uL Hgb (11.4-16.0) gm/dL Hct (34.0-46.0) % Plt Count (150-450) k/uL ABG pH (7.35-7.45) ABG pCO2 (35-45) mmHg ABG pO2 (83-108) mmHg ABG Total CO2 (19-24) mmol/L Chloride (98-107) mmol/L BUN (7-17) mg/dL Creatinine (0.52-1.04) mg/dL Glucose (74-99) mg/dL POC Glucose (mg/dL) 166 H 174 H 173 H (75-99) mg/dL Calcium (8.4-10.2) mg/dL Total Protein (6.3-8.2) g/dL Albumin (3.5-5.0) g/dL 10/24/18 10/24/18 10/24/18 Range/Units 07:58 09:09 09:57 WBC (3.8-10.6) k/uL RBC (3.80-5.40) m/uL Hgb (11.4-16.0) gm/dL Hct (34.0-46.0) % Plt Count (150-450) k/uL ABG pH (7.35-7.45) ABG pCO2 (35-45) mmHg ABG pO2 (83-108) mmHg ABG Total CO2 (19-24) mmol/L Chloride (98-107) mmol/L BUN (7-17) mg/dL Creatinine (0.52-1.04) mg/dL Glucose (74-99) mg/dL POC Glucose (mg/dL) 148 H 154 H 157 H (75-99) mg/dL Calcium (8.4-10.2) mg/dL Total Protein (6.3-8.2) g/dL Albumin (3.5-5.0) g/dL 10/24/18 10/24/18 10/24/18 Range/Units 10:55 11:57 13:01 WBC (3.8-10.6) k/uL RBC (3.80-5.40) m/uL Hgb (11.4-16.0) gm/dL Hct (34.0-46.0) % Plt Count (150-450) k/uL ABG pH (7.35-7.45) ABG pCO2 (35-45) mmHg ABG pO2 (83-108) mmHg ABG Total CO2 (19-24) mmol/L Chloride (98-107) mmol/L BUN (7-17) mg/dL Creatinine (0.52-1.04) mg/dL Glucose (74-99) mg/dL POC Glucose (mg/dL) 151 H 152 H 153 H (75-99) mg/dL Calcium (8.4-10.2) mg/dL Total Protein (6.3-8.2) g/dL Albumin (3.5-5.0) g/dL 10/24/18 10/24/18 10/24/18 Range/Units 13:58 15:03 15:51 WBC (3.8-10.6) k/uL RBC (3.80-5.40) m/uL Hgb (11.4-16.0) gm/dL Hct (34.0-46.0) % Plt Count (150-450) k/uL ABG pH (7.35-7.45) ABG pCO2 (35-45) mmHg ABG pO2 (83-108) mmHg ABG Total CO2 (19-24) mmol/L Chloride (98-107) mmol/L BUN (7-17) mg/dL Creatinine (0.52-1.04) mg/dL Glucose (74-99) mg/dL POC Glucose (mg/dL) 150 H 173 H 179 H (75-99) mg/dL Calcium (8.4-10.2) mg/dL Total Protein (6.3-8.2) g/dL Albumin (3.5-5.0) g/dL 10/24/18 10/24/18 10/24/18 Range/Units 16:53 18:09 18:56 WBC (3.8-10.6) k/uL RBC (3.80-5.40) m/uL Hgb (11.4-16.0) gm/dL Hct (34.0-46.0) % Plt Count (150-450) k/uL ABG pH (7.35-7.45) ABG pCO2 (35-45) mmHg ABG pO2 (83-108) mmHg ABG Total CO2 (19-24) mmol/L Chloride (98-107) mmol/L BUN (7-17) mg/dL Creatinine (0.52-1.04) mg/dL Glucose (74-99) mg/dL POC Glucose (mg/dL) 152 H 174 H 150 H (75-99) mg/dL Calcium (8.4-10.2) mg/dL Total Protein (6.3-8.2) g/dL Albumin (3.5-5.0) g/dL 10/24/18 10/24/18 Range/Units 20:08 21:32 WBC (3.8-10.6) k/uL RBC (3.80-5.40) m/uL Hgb (11.4-16.0) gm/dL Hct (34.0-46.0) % Plt Count (150-450) k/uL ABG pH (7.35-7.45) ABG pCO2 (35-45) mmHg ABG pO2 (83-108) mmHg ABG Total CO2 (19-24) mmol/L Chloride (98-107) mmol/L BUN (7-17) mg/dL Creatinine (0.52-1.04) mg/dL Glucose (74-99) mg/dL POC Glucose (mg/dL) 149 H 177 H (75-99) mg/dL Calcium (8.4-10.2) mg/dL Total Protein (6.3-8.2) g/dL Albumin (3.5-5.0) g/dL Microbiology - Last 24 Hours (Table) 10/21/18 13:00 Fungal Culture - Preliminary Bronchial Washings - Left Aminta albicans Laboratory Results WBC 11.9 k/uL (3.8-10.6) H 10/24/18 04:57 RBC 3.58 m/uL (3.80-5.40) L 10/24/18 04:57 Hgb 10.3 gm/dL (11.4-16.0) L 10/24/18 04:57 Hct 32.8 % (34.0-46.0) L 10/24/18 04:57 MCV 91.7 fL (80.0-100.0) 10/24/18 04:57 MCH 28.8 pg (25.0-35.0) 10/24/18 04:57 MCHC 31.5 g/dL (31.0-37.0) 10/24/18 04:57 RDW 14.8 % (11.5-15.5) 10/24/18 04:57 Plt Count 626 k/uL (150-450) H 10/24/18 04:57 Neutrophils % 78 % 10/16/18 09:11 Lymphocytes % 17 % 10/16/18 09:11 Monocytes % 3 % 10/16/18 09:11 Eosinophils % 0 % 10/16/18 09:11 Basophils % 0 % 10/16/18 09:11 Neutrophils # 4.9 k/uL (1.3-7.7) 10/16/18 09:11 Lymphocytes # 1.1 k/uL (1.0-4.8) 10/16/18 09:11 Monocytes # 0.2 k/uL (0-1.0) 10/16/18 09:11 Eosinophils # 0.0 k/uL (0-0.7) 10/16/18 09:11 Basophils # 0.0 k/uL (0-0.2) 10/16/18 09:11 Hypochromasia Marked 10/24/18 04:57 PT 10.5 sec (9.0-12.0) 10/13/18 23:47 INR 1.0 (<1.2) 10/13/18 23:47 APTT 28.8 sec (22.0-30.0) 10/13/18 23:47 Sample Site rrad 10/24/18 04:25 ABG pH 7.33 (7.35-7.45) L 10/24/18 04:25 ABG pCO2 46 mmHg (35-45) H 10/24/18 04:25 ABG pO2 82 mmHg (83-108) L 10/24/18 04:25 ABG HCO3 24 mmol/L (21-25) 10/24/18 04:25 ABG Total CO2 26 mmol/L (19-24) H 10/24/18 04:25 ABG O2 Saturation 95.0 % (94-97) 10/24/18 04:25 ABG Base Excess -1.9 mmol/L 10/24/18 04:25 Maxime Test Yes 10/24/18 04:25 FiO2 55 % 10/24/18 04:25 Sodium 142 mmol/L (137-145) 10/24/18 04:57 Potassium 4.8 mmol/L (3.5-5.1) 10/24/18 04:57 Chloride 114 mmol/L (98-107) H 10/24/18 04:57 Carbon Dioxide 23 mmol/L (22-30) 10/24/18 04:57 Anion Gap 5 mmol/L 10/24/18 04:57 BUN 47 mg/dL (7-17) H 10/24/18 04:57 Creatinine 1.27 mg/dL (0.52-1.04) H 10/24/18 04:57 Est GFR (CKD-EPI)AfAm 54 (>60 ml/min/1.73 sqM) 10/24/18 04:57 Est GFR (CKD-EPI)NonAf 46 (>60 ml/min/1.73 sqM) 10/24/18 04:57 Glucose 172 mg/dL (74-99) H 10/24/18 04:57 POC Glucose (mg/dL) 177 mg/dL (75-99) H 10/24/18 21:32 POC Glu [employer] Developer ID Livia Alba 10/24/18 21:[address] Glu mg/dL 186 10/15/18 06:32 Hemoglobin A1c 8.1 % (4.0-6.0) H 10/15/18 06:32 Plasma Lactic Acid Bola 0.8 mmol/L (0.7-2.0) 10/16/18 16:53 Calcium 8.3 mg/dL (8.4-10.2) L 10/24/18 04:57 Magnesium 2.6 mg/dL (1.6-2.3) H 10/17/18 08:05 Total Bilirubin 0.3 mg/dL (0.2-1.3) 10/24/18 04:57 AST 24 U/L (14-36) 10/24/18 04:57 ALT 28 U/L (9-52) 10/24/18 04:57 Alkaline Phosphatase 68 U/L (38-126) 10/24/18 04:57 NT-Pro-B Natriuret Pep 256 pg/mL 10/15/18 06:32 Total Protein 5.2 g/dL (6.3-8.2) L 10/24/18 04:57 Albumin 2.6 g/dL (3.5-5.0) L 10/24/18 04:57 Amylase 83 U/L (30-110) 10/20/18 06:04 Lipase 190 U/L (23-300) 10/20/18 06:04 Urine Color Light Yellow 10/20/18 01:00 Urine Appearance Cloudy (Clear) H 10/20/18 01:00 Urine pH 5.5 (5.0-8.0) 10/20/18 01:00 Ur Specific [place] 1.011 (1.001-1.035) 10/20/18 01:00 Urine Protein 1+ (Negative) H 10/20/18 01:00 Urine Glucose (UA) Negative (Negative) 10/20/18 01:00 Urine Ketones Negative (Negative) 10/20/18 01:00 Urine Blood Small (Negative) H 10/20/18 01:00 Urine Nitrite Negative (Negative) 10/20/18 01:00 Urine Bilirubin Negative (Negative) 10/20/18 01:00 Urine Urobilinogen <2.0 mg/dL (<2.0) 10/20/18 01:00 Ur Leukocyte Esterase Negative (Negative) 10/20/18 01:00 Urine RBC 3 /hpf (0-5) 10/20/18 01:00 Urine WBC 1 /hpf (0-5) 10/20/18 01:00 Ur Squamous Epith Cells <1 /hpf (0-4) 10/20/18 01:00 Amorphous Sediment Occasional /hpf (None) H 10/20/18 01:00 Urine Bacteria Rare /hpf (None) H 10/13/18 18:06 Urine Mucus Rare /hpf (None) H 10/20/18 01:00 Fluid Source Bronchial Wash 10/21/18 13:00 Fluid Color Colorless 10/21/18 13:00 Fluid Appearance Cloudy 10/21/18 13:00 Fluid RBC 730 /uL 10/21/18 13:00 Fluid Nucleated Cells 515 /uL 10/21/18 13:00 Fluid Polynuclear WBCs 20 % 10/21/18 13:00 Fluid Mononuclear WBCs 80 % 10/21/18 13:00 Stool Occult Blood Positive (Negative) H 10/21/18 23:34 Vancomycin Trough 24.7 ug/mL 10/20/18 06:04 Random Vancomycin 17.9 ug/mL 10/21/18 05:13 C. difficile (EIA) Intrp Negative (Negative) 10/21/18 23:31 Influenza Type A RNA Not Detected (Not Detectd) 10/22/18 18:10 Influenza Type B (PCR) Not Detected (Not Detectd) 10/22/18 18:10 Urine Legionella Ag Not detected (Not detected) 10/22/18 18:10 Mycoplasma pneumon IgG 0.67 INDEX (<=0.90) 10/22/18 18:28 Mycoplasma pneumon IgM 0.09 INDEX (<=0.90) 10/22/18 18:28 Virus Source See Below 10/21/18 13:00 Viral Test See Below H 10/21/18 13:00 Virus Analysis Interp See Below 10/21/18 13:00 Microbiology Adenovirus identified at the time of the bronchoscopy viral detection panel 10/21/18 13:00 Bronchial Washings - Left Fungal Culture - Preliminary Aminta albicans 10/21/18 13:00 Bronchial Washings - Left Gram Stain - Final 10/21/18 13:00 Bronchial Washings - Left Bronchial Washings Culture - Final 10/20/18 00:10 Sputum Gram Stain - Final 10/20/18 00:10 Sputum Sputum Culture - Final 10/21/18 13:00 Bronchial Washings - Left Acid Fast Bacilli Smear - Final 10/21/18 13:00 Bronchial Washings - Left Acid Fast Bacilli Culture - Preliminary 10/18/18 08:20 Sputum Gram Stain - Final 10/18/18 08:20 Sputum Sputum Culture - Final Aminta albicans 10/13/18 23:47 Blood Blood Culture - Final No Growth after 144 hours 10/13/18 18:06 Urine,Voided Urine Culture - Final Assessment and Plan (1) Paroxysmal atrial fibrillation with rapid ventricular response Current Visit: Yes Status: Acute Code(s): I48.0 - PAROXYSMAL ATRIAL FIBRILLATION SNOMED Code(s): 753593552 (2) Bilateral pneumonia Narrative/Plan: 58-year-old female presents to hospital with a several-day history of increasing illness this is high-grade fever chills or malaise and cough without much sputum production. There is evidence of pneumonia minimally by chest x-ray the patient was remaining very ill with fevers of 103 despite antibiotic therapy. A consult was requested and at that time antibiotic therapy was altered to cover for gram negatives including Pseudomonas as well as resistant gram-positive pathogen such as MRSA and vancomycin was added. For fever Toradol was added given the normal renal function and there is no evidence of improvement of how the patient is feeling with this. Fevers have trended to improvement. Will allow further doses of Toradol Renal function to be followed The patient is requiring oxygen therapy and this is being monitored also. Blood glucoses are being monitored. Leukocytosis is trending to improvement Diarrhea did occur and C. diff testing was negative. Lomotil be requested to improve some diarrhea patient encouraged to utilize yogurt with meals. 10/17/2018 is noted the patient had acute worsening of her status with recurrent fever to 103 with the development of atrial fibrillation with rapid ventricular response and transferred to intensive care unit. She's been seen by pulmonary critical care. If there is no further improvement will consider bronchoscopy. Her fever has now resolved and she feels just minimally better. Does complain of a significant oral discomfort cool solution requested 10/18/2018 he shouldn't is improved today. She is less short of breath. The subdural discomfort is improved and has done well with the cool solution. She is eating today. There is no further fever or chills Pruritic chest discomforts have improved She is starting to mobilize some secretions which has helped her shortness of br eath. Appetite poor but she is eating without difficulty Continue current antibiotic therapy, no plans for bronchoscopy at this time 10/19/2018 patient has had some further improvement. She is less short of breath. She is on less oxygen. She's having no further fevers. Mobilizing secretions better. Appetite is adequate. Leukocytosis is improving. She had an increase of her creatinine to 1.15 and ketorolac has been discontinued. Vancomycin levels being monitored closely regarding the treatment of her extensive pneumonia. 10/20/2018 is noted the patient is now had worsening of her status with respiratory failure requiring intubation sedation and mechanical ventilation. She is being followed by pulmonary critical care, with her marked alteration is status bronchoscopy would be helpful for further deep specimens giving all the negative culture so far. Given the lack of any positive blood cultures and no evidence of any resistant gram-positive pathogens, and with the increasing c reatinine we'll discontinue vancomycin at this point in time and monitor. 10/21/2018 patient remains intubated state and mechanically ventilated however is now had bronchoscopy performed. Hopefully will have in addition to therapeutic response a diagnostic response which will further help course of therapy. Creatinine is up to 1.61 vancomycin was discontinued yesterday. We'll monitor cultures for any further needs. Legionella was negative. 10/24/2018 is noted the patient developed respiratory failure requiring intubation sedation and mechanical ventilation. She also had atrial fibrillatio n requiring intravenous amiodarone and was hypotensive requiring vasopressor therapy. There is not improvement she is off of vasopressor therapy, and amiodarone has been transitioned to oral. Her blood pressure and heart rate have improved. Respiratory status remains such that she is on FiO2 55% and PEEP of 8. If there is no rapid improvement she will likely transition to tracheostomy and PEG tube soon to allow for long-term weaning solution in this bout of primary respiratory failure., Complicated by underlying cardiac dysrhythmia which has improved. Only adenovirus has come back as a positive no other pathogens were detected up till this point in time. Current Visit: Yes Status: Acute Code(s): J18.9 - PNEUMONIA, UNSPECIFIED ORGANISM SNOMED Code(s): 634153966 (3) Fever Current Visit: Yes Status: Acute Code(s): R50.9 - FEVER, UNSPECIFIED SNOMED Code(s): 159613452 (4) Leukocytosis Current Visit: Yes Status: Acute Code(s): D72.829 - ELEVATED WHITE BLOOD CE LL COUNT, UNSPECIFIED SNOMED Code(s): 528849242
[2018-10-24 22:55] LABS: Glucose,Whole Blood 182 mg/dL (75-99)
[2018-10-25 00:07] LABS: Glucose,Whole Blood 174 mg/dL (75-99)
[2018-10-25] MEDS: IPRATROPIUM-ALBUTEROL 3 ML NEB INHALATION SCH ×7 (00:12→23:01)
[2018-10-25] MEDS: methylPREDNISolone SOD SUCCI 40 MG/ML 1 ML VIAL IV SCH ×2 (01:05→07:18)
[2018-10-25 02:19] LABS: Glucose,Whole Blood 175 mg/dL (75-99)
[2018-10-25 03:11] LABS: Glucose,Whole Blood 171 mg/dL (75-99)
[2018-10-25 04:22] LABS: Glucose,Whole Blood 215 mg/dL (75-99)
[2018-10-25] MEDS: DILTIAZEM 125 MG in SODIUM CHLORIDE 0.9% 100 ML IV SCH ×2 (04:26→15:08)
[2018-10-25] MEDS: PROPOFOL 1,000 MG in EMPTY BAG 1 BAG IV SCH ×5 (04:37→21:18)
[2018-10-25 05:11] LABS: Glucose,Whole Blood 182 mg/dL (75-99)
[2018-10-25 05:16] LABS: ABG HCO3 23 mmol/L (21-25); ABG Oxygen Saturation 91.7 % (94-97); ABG PCO2 48 mmHg (35-45); ABG PO2 67 mmHg (83-108); ABG TCO2 25 mmol/L (19-24); Allen Test Performed? Yes
[2018-10-25] MEDS: INSULIN REGULAR 100 UNIT in SODIUM CHLORIDE 0.9% 100 ML IV SCH ×2 (05:19→17:14)
[2018-10-25] MEDS: PIPERACILLIN-TAZOBACTAM 3.375 GM in SODIUM CHLORIDE 0.9% 100 ML IVPB SCH ×3 (05:26→21:18)
[2018-10-25] MEDS: LORazepam 2 MG/ML INJ IV PRN (05:31)
[2018-10-25 05:37] LABS: HCT 35.3 % (34.0-46.0); HGB 10.6 gm/dL (11.4-16.0); Hypochromasia Marked; MCH 27.6 pg (25.0-35.0); MCV 92.1 fL (80.0-100.0); Mean Platelet Volume 7.4; Platelet Count 694 k/uL (150-450); RBC 3.83 m/uL (3.80-5.40); RDW 14.8 % (11.5-15.5); WBC 12.4 k/uL (3.8-10.6)
[2018-10-25 05:48] LABS: Calcium 8.7 mg/dL (8.4-10.2); Magnesium 2.1 mg/dL (1.6-2.3); Phosphorus 4.1 mg/dL (2.5-4.5); Potassium 5.1 mmol/L (3.5-5.1); Total Bilirubin 0.4 mg/dL (0.2-1.3); Total Protein 5.7 g/dL (6.3-8.2)
[2018-10-25 06:16] LABS: Glucose,Whole Blood 190 mg/dL (75-99)
[2018-10-25 07:12] LABS: Glucose,Whole Blood 199 mg/dL (75-99)
[2018-10-25] MEDS: HYDROmorphone 1 MG/ML 1 ML SYRINGE IVP PRN ×3 (07:18→18:31)
[2018-10-25] MEDS: BUDESONIDE 1 MG/2 ML NEBU INHALATION SCH ×2 (07:38→18:49)
[2018-10-25 08:07] LABS: Glucose,Whole Blood 209 mg/dL (75-99)
[2018-10-25] MEDS: CHLORHEXIDINE GLUCONATE 15 ML CUP MUCOUS MEM SCH ×2 (08:36→21:19)
[2018-10-25] MEDS: PANTOPRAZOLE 40 MG/10 ML VIAL IVP SCH ×2 (08:36→21:20)
[2018-10-25] MEDS: APIXABAN 2.5 MG TABLET PO SCH ×2 (08:36→21:19)
[2018-10-25] MEDS: METOPROLOL TARTRATE 25 MG TAB PO SCH ×3 (08:36→21:19)
[2018-10-25] MEDS: AMIODARONE 200 MG TAB PO SCH ×3 (08:36→21:19)
[2018-10-25] MEDS: MAG HYDROX/AL HYDROX/SIMETH 30 ML, LIDOCAINE VISCOUS 30 ML, NYSTATIN 100,000 UNIT/ML SU... PO SCH ×12 (08:36→21:38)
[2018-10-25] MEDS: MAGNESIUM OXIDE 400 MG TAB PO SCH (08:36)
--- NOTE | 2018-10-25 08:37 | XR ---
EXAMINATION TYPE: XR chest 1V portable DATE OF EXAM: 10/25/2018 COMPARISON: Prior chest x-ray 10/24/2018 HISTORY: Intubated TECHNIQUE: Single frontal view of the chest is obtained. FINDINGS: Endotracheal tube, orogastric tube are overlying appropriate positions. There are overlyin g cardiac leads. Patient is rotated. Pleural parenchymal changes are stable. Heart is enlarged, rotat ion may accentuate the appearance. IMPRESSION: Findings are similar to prior exam. Pleural effusions and associated atelectasis versus edema or pneumonia. Follow-up to resolution.
[2018-10-25] MEDS: amLODIPine 2.5 MG TAB PO SCH ×2 (08:39→10:39)
[2018-10-25] MEDS ORDERED: DEXTROSE 5% IN WATER 100 ML with AMIODARONE 150 MG IV ONE (08:45)
[2018-10-25 08:58] LABS: Glucose,Whole Blood 218 mg/dL (75-99)
[2018-10-25] MEDS: SODIUM CHLORIDE 0.9% 1,000 ML IV SCH ×2 (08:59→10:09)
--- NOTE | 2018-10-25 09:12 | PN ---
PROGRESS NOTE PULMONARY CRITICAL CARE PROGRESS NOTE: DATE OF SERVICE: 10/25/2018 CRITICAL CARE TIME: 34 minutes. This is a 58-year-old female who was apparently admitted back on October 14 with sepsis and pneumonia. On October 19, she was intubated for respiratory failure. She had a bronchoscopy performed on October 21. She has a history of acute hypoxemic and hypercapnic respiratory failure secondary to acute bilateral pneumonia. In addition, she has acute sepsis secondary to pneumonia. She currently remains on the ventilator. In addition, she has a history of diabetes mellitus type 2, COPD/asthma, right-sided pleural effusion, among many other issues and problems. Yesterday, she was dyssynchronous with the ventilator and we went to the VC plus mode or the pressure regulated volume control mode. We said an inspiratory time of 1 second and a targeted tidal volume of 400. FiO2 is 65%, PEEP of 8, rate of 24, blood gases show pO2 of 67, pCO2 of 48, pH of 7.30. Currently, she developed AFib throughout the night and was placed on Cardizem drip a 10 mg an hour. She is also on insulin 7 units/hour, propofol 40 mcg/kg per minute, 0.9 at 100 mL an hour and Vital high-protein at 42 with a goal of 42 mL an hours. Again, the big setback last night with the development of atrial fibrillation. The patient is going to go have her propofol increased a bit because she is a bit dyssynchronous this morning with the ventilator. We are going intensify her COPD regimen by increasing her Solu-Medrol dose and also adding some long-acting beta agonist, and also add some narcotic for better control in synchrony. Current vital signs are reviewed. Temperature is 99.5, heart rate 92, respiratory rate 25, blood pressure 130/73 mean 92, saturations are 92%. Appears in no acute distress. HEENT: Examination is grossly unremarkable. There is an orally placed endotracheal tube and NG tube. NECK: Supple. Full range of motion. CARDIOVASCULAR: Examination reveals irregular rhythm and rate. Heart rate in the 90s. She is clearly in atrial fibrillation. S1, S2 normal. No heart murmur noted. Heart sounds are distant. LUNGS: Reveal coarse rhonchi. There are some bibasilar crackles. Breath sounds equal bilaterally. ABDOMEN: Soft. Bowel sounds are heard. EXTREMITIES: Intact. Minimal edema. No cyanosis or clubbing. SKIN: Without rash. NEUROLOGIC: Examination is difficult to assess as she is currently heavily sedated. Microbiologic studies are so far negative. Bronch washings show evidence of Aminta albicans. Sputum is showing Aminta albicans as well. Typically this is not a pathogen somebody who is immunocompetent. LAB DATA: Reviewed. White count 12.4, hemoglobin 10.6, hematocrit 35.3, platelet count 694,000, sodium 144, potassium 5.1, chloride 114, CO2 is 23, anion gap is 7. BUN and creatinine were 48 and 1.29. The rest of the labs look okay. Chest x-ray from 10/25 is reviewed. It shows bilateral effusions, right greater than left. It also shows some consolidation and atelectasis and infiltrate in the right lower lobe. Endotracheal tube looks properly positioned. Medications are reviewed. Currently, she is on appropriate medications. She is getting Zosyn as an antibiotic right now. ASSESSMENT: 1. Acute hypoxemic and hypercapnic respiratory failure secondary to bilateral pneumonia, right greater than left, requiring intubation and mechanical ventilation on October 19. Thus far, the patient has been too unstable to wean. 2. Initial admission to the hospital for sepsis and pneumonia. 3. Hypotension, secondary to sepsis, resolved. 4. Diabetes mellitus, type 2. 5. History of chronic obstructive pulmonary disease/asthma, with significant bronchospasm. 6. History of acute hypoxemic respiratory failure. 7. Right-sided pleural effusion. Multiple other medical problems and comorbidities. PLAN: The patient may need a tracheostomy if she does not show any additional progress this week. Likely, I will bump up her PEEP and try to wean down the FiO2. We will add increasing doses of Solu-Medrol to her regimen and also add some formoterol to her regimen. Additional recommendations and suggestions are forthcoming. She seems to be tolerating the VC plus modality better than 5 assist control. We did set at a targeted tidal volume of 400 and a inspiratory time of 1 second. I may want to drop that tidal volume a bit because of her bronchospasm. Additional recommendations and suggestions are forthcoming. Prognosis is guarded. CRITICAL CARE TIME: 34 minutes. PEDRO / SUNDARN: [id number] /
[2018-10-25] MEDS ORDERED: FUROSEMIDE 10 MG/ML 4 ML VIAL IV STA (09:33)
--- NOTE | 2018-10-25 09:50 | P.PN ---
Subjective Patient is seen in follow-up for acute kidney injury. Baseline creatinine is near 1. It peaked at 1.6 on this admission and is stable at 1.29 today. Patient went into hypercapnic respiratory failure and was subsequently intubated on October 19. Remains intubated. She is off vasopressors. Maintained on IV fluids and tube feeding. She is nonoliguric. Currently being treated for pneumonia. She went in A. fib with RVR last night and is currently on Cardizem drip. Vital signs are stable. General: The patient appeared well nourished and normally developed. HEENT: Head exam is unremarkable. Neck is without jugular venous distension. Intubated. LUNGS: Breath sounds decreased. HEART: Irregular rate and rhythm. ABDOMEN: Abdominal exam reveals normal bowel sounds. Non-tender. EXTREMITITES: Trace edema. Objective - Vital Signs Vital signs: Vital Signs Temp 99.5 F 10/25/18 08:00 Pulse 92 10/25/18 08:14 Resp 25 H 10/25/18 08:00 BP 130/73 10/25/18 08:00 Pulse Ox 92 L 10/25/18 08:00 Intake & Output 10/24/18 10/25/18 10/25/18 18:59 06:59 18:59 Intake Total 2455.473 2438.012 371.063 Output Total 1500 1375 325 Balance 138.842 5658.012 46.063 Weight 100.344 kg Intake: IV 1275 1350 200 Piperacillin-Tazobactam 3 100 150 .375 gm In Sodium Chloride 0.9% 100 ml @ 25 mls/hr IVPB Q8H [facility] Rx#: [id number] Sodium Chloride 0.9% 1, 1175 1200 200 000 ml @ 100 mls/hr IV . Q10H [facility] Rx#:[id number] Intake, IV Titration 526.473 326.012 57.063 Amount Amiodarone 300 mg In 185 Dextrose 5% in Water 250 ml @ 0.5 MG/MIN 25 mls/hr IV .Q10H [facility] Rx#: [id number] Insulin Regular 100 unit 52.418 71.424 25.806 In Sodium Chloride 0.9% 100 ml @ Per Protocol IV .Q0M [facility] Rx#:[id number] Propofol 1,000 mg In 289.055 254.588 31.257 Empty Bag 1 bag @ Titrate IV .Q0M [facility] Rx#: [id number] Tube Feeding 504 672 84 Other 150 90 30 Output: Urine 1500 1375 325 Other: Voiding Method Indwelling Catheter Indwelling Catheter - Labs CBC & Chem 7: 10/25/18 05:04 10/25/18 05:04 Labs: Abnormal Lab Results - Last 24 Hours (Table) 10/24/18 10/24/18 10/24/18 Range/Units 09:57 10:55 11:57 WBC (3.8-10.6) k/uL Hgb (11.4-16.0) gm/dL MCHC (31.0-37.0) g/dL Plt Count (150-450) k/uL ABG pH (7.35-7.45) ABG pCO2 (35-45) mmHg ABG pO2 (83-108) mmHg ABG Total CO2 (19-24) mmol/L ABG O2 Saturation (94-97) % Chloride (98-107) mmol/L BUN (7-17) mg/dL Creatinine (0.52-1.04) mg/dL Glucose (74-99) mg/dL POC Glucose (mg/dL) 157 H 151 H 152 H (75-99) mg/dL Total Protein (6.3-8.2) g/dL Albumin (3.5-5.0) g/dL 10/24/18 10/24/18 10/24/18 Range/Units 13:01 13:58 15:03 WBC (3.8-10.6) k/uL Hgb (11.4-16.0) gm/dL MCHC (31.0-37.0) g/dL Plt Count (150-450) k/uL ABG pH (7.35-7.45) ABG pCO2 (35-45) mmHg ABG pO2 (83-108) mmHg ABG Total CO2 (19-24) mmol/L ABG O2 Saturation (94-97) % Chloride (98-107) mmol/L BUN (7-17) mg/dL Creatinine (0.52-1.04) mg/dL Glucose (74-99) mg/dL POC Glucose (mg/dL) 153 H 150 H 173 H (75-99) mg/dL Total Protein (6.3-8.2) g/dL Albumin (3.5-5.0) g/dL 10/24/18 10/24/18 10/24/18 Range/Units 15:51 16:53 18:09 WBC (3.8-10.6) k/uL Hgb (11.4-16.0) gm/dL MCHC (31.0-37.0) g/dL Plt Count (150-450) k/uL ABG pH (7.35-7.45) ABG pCO2 (35-45) mmHg ABG pO2 (83-108) mmHg ABG Total CO2 (19-24) mmol/L ABG O2 Saturation (94-97) % Chloride (98-107) mmol/L BUN (7-17) mg/dL Creatinine (0.52-1.04) mg/dL Glucose (74-99) mg/dL POC Glucose (mg/dL) 179 H 152 H 174 H (75-99) mg/dL Total Protein (6.3-8.2) g/dL Albumin (3.5-5.0) g/dL 10/24/18 10/24/18 10/24/18 Range/Units 18:56 20:08 21:32 WBC (3.8-10.6) k/uL Hgb (11.4-16.0) gm/dL MCHC (31.0-37.0) g/dL Plt Count (150-450) k/uL ABG pH (7.35-7.45) ABG pCO2 (35-45) mmHg ABG pO2 (83-108) mmHg ABG Total CO2 (19-24) mmol/L ABG O2 Saturation (94-97) % Chloride (98-107) mmol/L BUN (7-17) mg/dL Creatinine (0.52-1.04) mg/dL Glucose (74-99) mg/dL POC Glucose (mg/dL) 150 H 149 H 177 H (75-99) mg/dL Total Protein (6.3-8.2) g/dL Albumin (3.5-5.0) g/dL 10/24/18 10/25/18 10/25/18 Range/Units 22:54 00:06 02:18 WBC (3.8-10.6) k/uL Hgb (11.4-16.0) gm/dL MCHC (31.0-37.0) g/dL Plt Count (150-450) k/uL ABG pH (7.35-7.45) ABG pCO2 (35-45) mmHg ABG pO2 (83-108) mmHg ABG Total CO2 (19-24) mmol/L ABG O2 Saturation (94-97) % Chloride (98-107) mmol/L BUN (7-17) mg/dL Creatinine (0.52-1.04) mg/dL Glucose (74-99) mg/dL POC Glucose (mg/dL) 182 H 174 H 175 H (75-99) mg/dL Total Protein (6.3-8.2) g/dL Albumin (3.5-5.0) g/dL 10/25/18 10/25/18 10/25/18 Range/Units 03:10 04:20 05:04 WBC (3.8-10.6) k/uL Hgb (11.4-16.0) gm/dL MCHC (31.0-37.0) g/dL Plt Count (150-450) k/uL ABG pH (7.35-7.45) ABG pCO2 (35-45) mmHg ABG pO2 (83-108) mmHg ABG Total CO2 (19-24) mmol/L ABG O2 Saturation (94-97) % Chloride 114 H (98-107) mmol/L BUN 48 H (7-17) mg/dL Creatinine 1.29 H (0.52-1.04) mg/dL Glucose 191 H (74-99) mg/dL POC Glucose (mg/dL) 171 H 215 H (75-99) mg/dL Total Protein 5.7 L (6.3-8.2) g/dL Albumin 3.0 L (3.5-5.0) g/dL 10/25/18 10/25/18 10/25/18 Range/Units 05:04 05:08 05:14 WBC 12.4 H (3.8-10.6) k/uL Hgb 10.6 L (11.4-16.0) gm/dL MCHC 30.0 L (31.0-37.0) g/dL Plt Count 694 H (150-450) k/uL ABG pH 7.30 L (7.35-7.45) ABG pCO2 48 H (35-45) mmHg ABG pO2 67 L (83-108) mmHg ABG Total CO2 25 H (19-24) mmol/L ABG O2 Saturation 91.7 L (94-97) % Chloride (98-107) mmol/L BUN (7-17) mg/dL Creatinine (0.52-1.04) mg/dL Glucose (74-99) mg/dL POC Glucose (mg/dL) 182 H (75-99) mg/dL Total Protein (6.3-8.2) g/dL Albumin (3.5-5.0) g/dL 10/25/18 10/25/18 10/25/18 Range/Units 06:15 07:11 08:06 WBC (3.8-10.6) k/uL Hgb (11.4-16.0) gm/dL MCHC (31.0-37.0) g/dL Plt Count (150-450) k/uL ABG pH (7.35-7.45) ABG pCO2 (35-45) mmHg ABG pO2 (83-108) mmHg ABG Total CO2 (19-24) mmol/L ABG O2 Saturation (94-97) % Chloride (98-107) mmol/L BUN (7-17) mg/dL Creatinine (0.52-1.04) mg/dL Glucose (74-99) mg/dL POC Glucose (mg/dL) 190 H 199 H 209 H (75-99) mg/dL Total Protein (6.3-8.2) g/dL Albumin (3.5-5.0) g/dL 10/25/18 Range/Units 08:57 WBC (3.8-10.6) k/uL Hgb (11.4-16.0) gm/dL MCHC (31.0-37.0) g/dL Plt Count (150-450) k/uL ABG pH (7.35-7.45) ABG pCO2 (35-45) mmHg ABG pO2 (83-108) mmHg ABG Total CO2 (19-24) mmol/L ABG O2 Saturation (94-97) % Chloride (98-107) mmol/L BUN (7-17) mg/dL Creatinine (0.52-1.04) mg/dL Glucose (74-99) mg/dL POC Glucose (mg/dL) 218 H (75-99) mg/dL Total Protein (6.3-8.2) g/dL Albumin (3.5-5.0) g/dL Microbiology - Last 24 Hours (Table) 10/21/18 13:00 Fungal Culture - Preliminary Bronchial Washings - Left Aminta albicans Assessment and Plan Plan: Assessment: 1. Acute kidney injury secondary to ATN secondary to hemodynamic instability, contrast-induced nephropathy and sepsis. Baseline creatinine 1. Creatinine peaked at 1.6 on this admission and is stable at 1.29 today. Trace proteinuria noted on UA. 2. Mild volume overload. Better. 3. Septic shock secondary to pneumonia maintained on antibiotics. Currently off Levophed. Sputum culture positive for Aminta. 4. A. fib with RVR maintained on Cardizem drip. Also on anticoagulation. Cardiology following. 5. Insulin-dependent diabetes mellitus. 6. Acute hypercapnic respiratory failure. 7. Metabolic acidosis secondary to acute kidney injury. Better. Plan: Maintain tube feeding. Hep-Lock IV fluids. Patient also received a dose of IV Lasix today. Avoid nephrotoxins. Discontinued Toradol. Continue to monitor renal function and urine output. Wean FiO2.
[2018-10-25 10:18] LABS: Glucose,Whole Blood 236 mg/dL (75-99)
[2018-10-25 10:54] LABS: Glucose,Whole Blood 245 mg/dL (75-99)
[2018-10-25] MEDS: NOREPINEPHRINE 4 MG in SODIUM CHLORIDE 0.9% 250 ML IV SCH (11:31)
[2018-10-25] MEDS: methylPREDNISolone SOD SUCCI 125 MG/2 ML VIAL IV SCH ×3 (11:41→22:54)
--- NOTE | 2018-10-25 11:42 | PN ---
PROGRESS NOTE Mrs. Cota is in atrial fib again this morning. She went back into atrial fib last night, on a Cardizem drip at this time. Rate control is good. Hemodynamically stable. Weaning efforts have not been successful. Blood pressure 120/70, pulse rate is 80 per minute, irregular. JVD 1 cm. S1-S2 heard normally, irregular rhythm, noted short systolic murmur. Lungs reveal bilateral ventilator-assisted air entry. Abdomen and lower extremity exam unchanged. RECOMMENDATIONS: I am suggesting that we will give a 150 mg amiodarone bolus and if she converts to sinus rhythm, we can discontinue IV Cardizem. Continue the oral amiodarone. Overall prognosis remains guarded. No further hematuria. She is tolerating Eliquis 2.5 mg b.i.d. well which we will continue. MMODL / IJN: [id number] /
[2018-10-25 12:03] LABS: Glucose,Whole Blood 231 mg/dL (75-99)
[2018-10-25 12:53] LABS: Glucose,Whole Blood 204 mg/dL (75-99)
[2018-10-25 14:03] LABS: Glucose,Whole Blood 214 mg/dL (75-99)
[2018-10-25 14:59] LABS: Glucose,Whole Blood 202 mg/dL (75-99)
[2018-10-25 16:15] LABS: Glucose,Whole Blood 183 mg/dL (75-99)
[2018-10-25 17:13] LABS: Glucose,Whole Blood 186 mg/dL (75-99)
[2018-10-25 18:07] LABS: Glucose,Whole Blood 213 mg/dL (75-99)
[2018-10-25] MEDS: FORMOTEROL FUMARATE 20 MCG/2 ML NEBU INHALATION SCH (18:49)
[2018-10-25 19:06] LABS: Glucose,Whole Blood 205 mg/dL (75-99)
[2018-10-25 19:50] LABS: Glucose,Whole Blood 194 mg/dL (75-99)
[2018-10-25 21:01] LABS: Glucose,Whole Blood 208 mg/dL (75-99)
[2018-10-25] MEDS: ATORVASTATIN 40 MG TAB PO SCH (21:19)
[2018-10-25] MEDS: MONTELUKAST 10 MG TAB PO SCH (21:19)
[2018-10-25] MEDS: SERTRALINE 50 MG TAB PO SCH (21:20)
[2018-10-25 21:55] LABS: Glucose,Whole Blood 221 mg/dL (75-99)
--- NOTE | 2018-10-25 22:11 | P.PN ---
Subjective Progress Note Date: 10/25/18 Principal diagnosis: Sepsis secondary to pneumonia Septic shock Celeste meza is a 58-year-old female known history of asthma, diabetes type 2, hypertension and hyperlipidemia was admitted to the hospital with the complaints of shortness of breath, cough with yellow sputum production 4 days. Patient was lethargic and weak and was confused and she came to the hospital. Patient is being treated for sepsis/septic shock secondary to pneumonia and went into respiratory failure. Currently patient in the MICU. Patient went into atrial fibrillation and was given a dose of Cardizem and converted back to sinus rhythm. 10/25/2018 Patient is currently on mechanical ventilator. Assist control with PEEP of 12, FiO2 50%. Patient went into atrial fibrillation last night and was given amiodarone bolus. Currently on oral amiodarone. Anticoagulation with Eliquis. Being continued on antibiotics the form of Zosyn. Sputum Cultures growing Aminta. Patient is off pressor support. WBC 12.4 and 1.29. Patient has been afebrile otherwise. Active Medications Generic Name Dose Route Start Last Admin Trade Name Freq PRN Reason Stop Dose Admin Acetaminophen 650 mg 10/14/18 04:01 10/22/18 23:37 Tylenol Tab PO 650 mg Q4H PRN Administration Fever Albuterol/Ipratropium 3 ml 10/24/18 12:00 10/25/18 18:49 Duoneb 0.5 Mg-3 Mg/3 Ml Soln INHALATION 3 ml RT-Q4H TAMIR Administration Amiodarone HCl 200 mg 10/18/18 21:00 10/25/18 21:19 Cordarone PO 200 mg BID TAMIR Administration Amlodipine Besylate 2.5 mg 10/24/18 09:00 10/25/18 10:39 Norvasc PO 2.5 mg DAILY TAMIR Administration Apixaban 2.5 mg 10/24/18 21:00 10/25/18 21:19 Eliquis PO 2.5 mg BID TAMIR Administration Atorvastatin Calcium 40 mg 10/14/18 21:00 10/25/18 21:19 Lipitor PO 40 mg HS TAMIR Administration Budesonide 1 mg 10/22/18 20:00 10/25/18 18:49 Pulmicort INHALATION 1 mg RT-BID TAMIR Administration Calamine/Phenol 1 applic 10/15/18 13:38 Calmoseptine Oint TOPICAL QID PRN Skin Irritation Chlorhexidine Gluconate 15 ml 10/20/18 09:00 10/25/18 21:19 Peridex MUCOUS MEM 15 ml BID TAMIR Administration Al Hydroxide/Mg Hydroxide 30 0 ml 10/17/18 15:00 10/25/18 21:38 ml/ Lidocaine HCl 30 ml/ PO Not Given Nystatin 3,000,000 unit QID TAMIR Diphenoxylate HCl/Atropine 1 each 10/16/18 15:45 Lomotil PO Q6HR PRN Diarrhea Formoterol Fumarate 20 mcg 10/25/18 20:00 10/25/18 18:49 Perforomist INHALATION 20 mcg RT-BID TAMIR Administration Hydromorphone HCl 1 mg 10/25/18 06:52 10/25/18 18:31 Dilaudid IVP 1 mg Q2H PRN Administration Pain Piperacillin Sod/Tazobactam 100 mls @ 25 mls/hr 10/15/18 21:00 10/25/18 21:18 Sod 3.375 gm/ Sodium Chloride IVPB 25 mls/hr Q8H TAMIR Administration Propofol 1,000 mg/ IV Solution 100 mls @ 0 mls/hr 10/19/18 23:45 10/25/18 21:18 IV 50 mcg/kg/min .Q0M TAMIR 30.39 mls/hr Administration Protocol Titrate Norepinephrine Bitartrate 4 mg 254 mls @ 17.869 mls/hr 10/20/18 02:45 10/25/18 11:31 / Sodium Chloride IV Not Given .[id number] TAMIR Protocol 0.05 MCG/KG/MIN Insulin Human Regular 100 unit 101 mls @ 0 mls/hr 10/23/18 23:00 10/25/18 19:05 / Sodium Chloride IV 7 units/hr .Q0M TAMIR 7.07 mls/hr Titration Protocol Per Protocol Diltiazem HCl 125 mg/ Sodium 125 mls @ 10 mls/hr 10/25/18 04:15 10/25/18 15:08 Chloride IV Not Given .[id number] TAMIR Protocol 10 MG/HR Sodium Chloride 1,000 mls @ 20 mls/hr 10/25/18 08:45 10/25/18 10:09 Saline 0.9% IV 20 mls/hr .Q24H TAMIR Administration Magnesium Oxide 400 mg 10/14/18 09:00 10/25/18 08:36 Mag-Ox PO 400 mg DAILY TAMIR Administration Methylprednisolone Sodium Succinate 60 mg 10/25/18 12:00 10/25/18 17:30 Solu-Medrol IV 60 mg Q6HR TAMIR Administration Metoprolol Tartrate 25 mg 10/17/18 21:00 10/25/18 21:19 Lopressor PO 25 mg BID TAMIR Administration Miscellaneous Information 1 each 10/16/18 11:14 Magnesium Per Protocol MISCELLANE DAILY PRN Per Protocol Protocol Miscellaneous Information 1 each 10/16/18 11:13 Potassium Per Protocol MISCELLANE DAILY PRN Per Protocol Protocol Montelukast Sodium 10 mg 10/14/18 21:00 10/25/18 21:19 Singulair PO 10 mg HS TAMIR Administration Pantoprazole Sodium 40 mg 10/21/18 21:00 10/25/18 21:20 Protonix IVP 40 mg BID TAMIR Administration Sertraline HCl 50 mg 10/14/18 21:00 10/25/18 21:20 Zoloft PO 50 mg HS TAMIR Administration Objective - Vital Signs Vital signs: Vital Signs Temp 98.9 F 10/25/18 16:00 Pulse 71 10/25/18 19:09 Resp 24 10/25/18 19:00 BP 118/53 10/25/18 19:00 Pulse Ox 95 10/25/18 19:00 Intake & Output 10/25/18 10/25/18 10/26/18 06:59 18:59 06:59 Intake Total 2438.012 1623.717 29.932 Output Total 1375 1695 140 Balance 1063.012 -71.283 -110.068 Weight 101.3 kg Intake: IV 1350 600 20 Amiodarone bolus 100 Piperacillin-Tazobactam 3 150 100 .375 gm In Sodium Chloride 0.9% 100 ml @ 25 mls/hr IVPB Q8H TAMIR Rx#: [id number] Sodium Chloride 0.9% 1, 1200 200 000 ml @ 100 mls/hr IV . Q10H TAMIR Rx#:[id number] Sodium Chloride 0.9% 1, 200 20 000 ml @ 20 mls/hr IV . Q24H TAMIR Rx#:[id number] Intake, IV Titration 326.012 399.717 9.932 Amount Diltiazem 125 mg In 61.333 Sodium Chloride 0.9% 100 ml @ 10 MG/HR 10 mls/hr IV .[id number] TAMIR Rx#: [id number] Insulin Regular 100 unit 71.424 107.127 9.932 In Sodium Chloride 0.9% 100 ml @ Per Protocol IV .Q0M TAMIR Rx#:[id number] Propofol 1,000 mg In 254.588 231.257 Empty Bag 1 bag @ Titrate IV .Q0M TAMIR Rx#: [id number] Tube Feeding 672 504 Other 90 120 Output: Urine 1375 1545 140 Stool 150 Other: Voiding Method Indwelling Catheter Indwelling Catheter - Exam PHYSICAL EXAMINATION: Patient Is currently sedated and intubated... HEENT: Normocephalic. Neck is supple. Pupils reactive. Nostrils clear. Oral cavity is moist. Ears reveal no drainage. Neck reveals no JVD, carotid bruits, or thyromegaly. CHEST EXAMINATION: Endotracheal tube in place. Trachea is central. Symmetrical expansion. Bibasilar diminished air entry.. CARDIAC: Normal S1, S2 with no gallops. No murmurs ABDOMEN: Soft. Bowel sounds normal. No organomegaly. No abdominal bruits. Fecal collection tube and Alvarez catheter in place. Extremities: reveal no edema. No clubbing or cyanosis Neurologically .patient currently sedated. No gross neurological deficit. Skin: No rash or skin lesions. Psychiatric: Could not be assessed Musculoskeletal: No joint swelling or deformity. - Labs CBC & Chem 7: 10/25/18 05:04 10/25/18 05:04 Labs: Abnormal Lab Results - Last 24 Hours (Table) 10/24/18 10/24/18 10/24/18 Range/Units 20:08 21:32 22:54 WBC (3.8-10.6) k/uL Hgb (11.4-16.0) gm/dL MCHC (31.0-37.0) g/dL Plt Count (150-450) k/uL ABG pH (7.35-7.45) ABG pCO2 (35-45) mmHg ABG pO2 (83-108) mmHg ABG Total CO2 (19-24) mmol/L ABG O2 Saturation (94-97) % Chloride (98-107) mmol/L BUN (7-17) mg/dL Creatinine (0.52-1.04) mg/dL Glucose (74-99) mg/dL POC Glucose (mg/dL) 149 H 177 H 182 H (75-99) mg/dL Total Protein (6.3-8.2) g/dL Albumin (3.5-5.0) g/dL 10/25/18 10/25/18 10/25/18 Range/Units 00:06 02:18 03:10 WBC (3.8-10.6) k/uL Hgb (11.4-16.0) gm/dL MCHC (31.0-37.0) g/dL Plt Count (150-450) k/uL ABG pH (7.35-7.45) ABG pCO2 (35-45) mmHg ABG pO2 (83-108) mmHg ABG Total CO2 (19-24) mmol/L ABG O2 Saturation (94-97) % Chloride (98-107) mmol/L BUN (7-17) mg/dL Creatinine (0.52-1.04) mg/dL Glucose (74-99) mg/dL POC Glucose (mg/dL) 174 H 175 H 171 H (75-99) mg/dL Total Protein (6.3-8.2) g/dL Albumin (3.5-5.0) g/dL 10/25/18 10/25/18 10/25/18 Range/Units 04:20 05:04 05:04 WBC 12.4 H (3.8-10.6) k/uL Hgb 10.6 L (11.4-16.0) gm/dL MCHC 30.0 L (31.0-37.0) g/dL Plt Count 694 H (150-450) k/uL ABG pH (7.35-7.45) ABG pCO2 (35-45) mmHg ABG pO2 (83-108) mmHg ABG Total CO2 (19-24) mmol/L ABG O2 Saturation (94-97) % Chloride 114 H (98-107) mmol/L BUN 48 H (7-17) mg/dL Creatinine 1.29 H (0.52-1.04) mg/dL Glucose 191 H (74-99) mg/dL POC Glucose (mg/dL) 215 H (75-99) mg/dL Total Protein 5.7 L (6.3-8.2) g/dL Albumin 3.0 L (3.5-5.0) g/dL 10/25/18 10/25/18 10/25/18 Range/Units 05:08 05:14 06:15 WBC (3.8-10.6) k/uL Hgb (11.4-16.0) gm/dL MCHC (31.0-37.0) g/dL Plt Count (150-450) k/uL ABG pH 7.30 L (7.35-7.45) ABG pCO2 48 H (35-45) mmHg ABG pO2 67 L (83-108) mmHg ABG Total CO2 25 H (19-24) mmol/L ABG O2 Saturation 91.7 L (94-97) % Chloride (98-107) mmol/L BUN (7-17) mg/dL Creatinine (0.52-1.04) mg/dL Glucose (74-99) mg/dL POC Glucose (mg/dL) 182 H 190 H (75-99) mg/dL Total Protein (6.3-8.2) g/dL Albumin (3.5-5.0) g/dL 10/25/18 10/25/18 10/25/18 Range/Units 07:11 08:06 08:57 WBC (3.8-10.6) k/uL Hgb (11.4-16.0) gm/dL MCHC (31.0-37.0) g/dL Plt Count (150-450) k/uL ABG pH (7.35-7.45) ABG pCO2 (35-45) mmHg ABG pO2 (83-108) mmHg ABG Total CO2 (19-24) mmol/L ABG O2 Saturation (94-97) % Chloride (98-107) mmol/L BUN (7-17) mg/dL Creatinine (0.52-1.04) mg/dL Glucose (74-99) mg/dL POC Glucose (mg/dL) 199 H 209 H 218 H (75-99) mg/dL Total Protein (6.3-8.2) g/dL Albumin (3.5-5.0) g/dL 10/25/18 10/25/18 10/25/18 Range/Units 10:06 10:52 12:02 WBC (3.8-10.6) k/uL Hgb (11.4-16.0) gm/dL MCHC (31.0-37.0) g/dL Plt Count (150-450) k/uL ABG pH (7.35-7.45) ABG pCO2 (35-45) mmHg ABG pO2 (83-108) mmHg ABG Total CO2 (19-24) mmol/L ABG O2 Saturation (94-97) % Chloride (98-107) mmol/L BUN (7-17) mg/dL Creatinine (0.52-1.04) mg/dL Glucose (74-99) mg/dL POC Glucose (mg/dL) 236 H 245 H 231 H (75-99) mg/dL Total Protein (6.3-8.2) g/dL Albumin (3.5-5.0) g/dL 10/25/18 10/25/18 10/25/18 Range/Units 12:51 14:01 14:58 WBC (3.8-10.6) k/uL Hgb (11.4-16.0) gm/dL MCHC (31.0-37.0) g/dL Plt Count (150-450) k/uL ABG pH (7.35-7.45) ABG pCO2 (35-45) mmHg ABG pO2 (83-108) mmHg ABG Total CO2 (19-24) mmol/L ABG O2 Saturation (94-97) % Chloride (98-107) mmol/L BUN (7-17) mg/dL Creatinine (0.52-1.04) mg/dL Glucose (74-99) mg/dL POC Glucose (mg/dL) 204 H 214 H 202 H (75-99) mg/dL Total Protein (6.3-8.2) g/dL Albumin (3.5-5.0) g/dL 10/25/18 10/25/18 10/25/18 Range/Units 16:02 17:11 18:05 WBC (3.8-10.6) k/uL Hgb (11.4-16.0) gm/dL MCHC (31.0-37.0) g/dL Plt Count (150-450) k/uL ABG pH (7.35-7.45) ABG pCO2 (35-45) mmHg ABG pO2 (83-108) mmHg ABG Total CO2 (19-24) mmol/L ABG O2 Saturation (94-97) % Chloride (98-107) mmol/L BUN (7-17) mg/dL Creatinine (0.52-1.04) mg/dL Glucose (74-99) mg/dL POC Glucose (mg/dL) 183 H 186 H 213 H (75-99) mg/dL Total Protein (6.3-8.2) g/dL Albumin (3.5-5.0) g/dL 10/25/18 Range/Units 19:04 WBC (3.8-10.6) k/uL Hgb (11.4-16.0) gm/dL MCHC (31.0-37.0) g/dL Plt Count (150-450) k/uL ABG pH (7.35-7.45) ABG pCO2 (35-45) mmHg ABG pO2 (83-108) mmHg ABG Total CO2 (19-24) mmol/L ABG O2 Saturation (94-97) % Chloride (98-107) mmol/L BUN (7-17) mg/dL Creatinine (0.52-1.04) mg/dL Glucose (74-99) mg/dL POC Glucose (mg/dL) 205 H (75-99) mg/dL Total Protein (6.3-8.2) g/dL Albumin (3.5-5.0) g/dL Assessment and Plan Assessment: Acute hypoxemic and hypercapnic respiratory failure Acute metabolic encephalopathy secondary infection Sepsis/septic shock secondary to right lower lobe pneumonia. Likely community-acquired Atrial fibrillation with rapid regular rate Acute kidney injury secondary to ATN due to hemodynamic instability and sepsis. Creatinine peaked at 1.6. Currently on 0.29 Insulin-dependent diabetes type 2 Asthma exacerbation Metabolic acidosis Paroxysmal atrial fibrillation Hypovolemic hyponatremia Hyperlipidemia Plan: Patient is currently on mechanical ventilator. Pulmonary is following. Con tinue with antibiotics in the form of Zosyn. ID is on board. Sputum culture is growing Aminta. Continue with oral amiodarone. Patient was given amiodarone bolus. Continue the current insulin dosing and titrate as needed. Otherwise continue the current management. Prognosis is guarded. Discussed with family at bedside in detail. Pulmonary, ID, nephrology is following. Time with Patient: Greater than 30
--- NOTE | 2018-10-25 22:18 | P.PN ---
Subjective Progress Note Date: 10/25/18 58 -year-old female with history of diabetes mellitus type 2 generally is completely independent relates to approximate 4 day history of feeling poorly. She started to feel fever chills generalized malaise cough with yellowish sputum production and no hemoptysis. Her fever increased she felt w eak and confused and was brought to the emergency center. There she has not evidence of a high-grade fever leukocytosis and sepsis as well as atrial fibrillation, she was treated with a dose of Cardizem with hydration and resolution of her A. fib. The patient continued to feel ill continue to have ongoing fevers because of the consult was requested. At the time of the consult antibiotic therapy was altered and anti-inflammatory with Toradol was requested and the patient is feeling considerably better today. After the first dorsal Toradol her sugar went from 103.5-99.5. The highest it's been so far today is 101.5. Patient does feel poorly still. She has shortness of breath or oxygen therapy she has cough without much sputum production or hemoptysis does have discomfort in her chest with coughing. 10/17/2018 the patient had significant worsening of her status overnight. She developed atrial fibrillation with a rapid ventricular response and was brought to the intensive care unit has been treated with Cardizem and amiodarone. She has had an improvement of her cardiac dysrhythmia and is somewhat less short of breath. She had further fever which is now much improved since her transfer to the intensive care unit. She relates she still feels poorly but better than last night. She is not having chest pain. No chills or rigors are occurring at this time. 10/18/2018 patient is now feeling somewhat better. She is much less short of breath. Fevers have resolved. Cardiac dysrhythmia has improved. Leukocytosis is also improving. 10/19/2018 has further improvement. She is however quite sleepy today. Atrial fibrillation is improved. Leukocytosis improving. Appetite still somewhat poor and other than fatigue has improved. 10/20/2018 the patient now has a significant worsening of her status. She really developed respiratory failure last evening her current intubation sedation mechanical ventilation in addition of vasopressor therapy. She's been seen by pulmonary critical care. Her significant cardiac dysrhythmia does seem to be more stable at this time. Oxygenation is improved. Renal failure has worsened. 10/21/2018 the patient has had little change in her status. However bronchoscopy has been performed for further treatment and diagnosis of her pneumonia and respiratory failure. She tolerated the procedure well only 2 changes are of renal failure vancomycin has been discontinued at this time pending further culture results. She's had one further fever overnight of 101.1 better today. Leukocytosis is improving. No other new acute changes 10/24/2018 patient has had some ventilator changes today. She is afebrile. Is no longer on vasopressor therapy or IV amiodarone. 10/25/2018 patient remains ventilator dependent. Further changes of ventilator settings have occurred with repeat now at 12. Positive cultures. Cardiac dysrhythmias improving. Fever has improved. Objective - Vital Signs Vital signs: Vital Signs Temp 99.7 F H 10/25/18 20:00 Pulse 73 10/25/18 22:00 Resp 21 10/25/18 22:00 BP 107/50 10/25/18 22:00 Pulse Ox 94 L 10/25/18 22:00 Intake & Output 10/25/18 10/25/18 10/26/18 06:59 18:59 06:59 Intake Total 2438.012 1623.717 459.378 Output Total 1375 1695 465 Balance 1063.012 -71.283 -5.622 Weight 101.3 kg Intake: IV 1350 600 130 Amiodarone bolus 100 Piperacillin-Tazobactam 3 150 100 50 .375 gm In Sodium Chloride 0.9% 100 ml @ 25 mls/hr IVPB Q8H [facility] Rx#: [id number] Sodium Chloride 0.9% 1, 1200 200 000 ml @ 100 mls/hr IV . Q10H [facility] Rx#:[id number] Sodium Chloride 0.9% 1, 200 80 000 ml @ 20 mls/hr IV . Q24H [facility] Rx#:[id number] Intake, IV Titration 326.012 399.717 131.378 Amount Diltiazem 125 mg In 61.333 Sodium Chloride 0.9% 100 ml @ 10 MG/HR 10 mls/hr IV .[id number] [facility] Rx#: [id number] Insulin Regular 100 unit 71.424 107.127 31.378 In Sodium Chloride 0.9% 100 ml @ Per Protocol IV .Q0M [facility] Rx#:[id number] Propofol 1,000 mg In 254.588 231.257 100 Empty Bag 1 bag @ Titrate IV .Q0M [facility] Rx#: [id number] Tube Feeding 672 504 168 Other 90 120 30 Output: Urine 1375 1545 465 Stool 150 Other: Voiding Method Indwelling Catheter Indwelling Catheter - Exam 58 -year-old woman, she is now intubated sedated and mechanically ventilated off of vasopressor therapy HEENT: Anicteric conjunctiva are pink and moist nasal mucosa grossly intact without significant lesions, there is no thrush. Neck: The neck is supple without significant lymphadenopathy or thyromegaly. Lungs: Symmetrical bilateral air entry,there is some evidence of air entry with some crackles noted a few crackles at the right posterior mid zone, posterior left lower zone also with crackles no distinct egophony nor dullness in either area some expiratory wheezes are scattered Heart: Rhythm is regular with an audible S1-S2, no S3 no S4. There is no significant murmur click or rub, PMI was nondisplaced. Abdomen: Obese, Positive bowel sounds soft and nontender without palpable masses or organomegaly. There was no guarding or rebound. Extremities: The upper extremities have excellent pulses they are symmetric, no significant petechiae or telangiectasia. No splinter hemorrhages were noted. His also lower extremity edema no open ulcerations Neuro: She is sedated and mechanically ventilated - Labs CBC & Chem 7: 10/25/18 05:04 10/25/18 05:04 Labs: Abnormal Lab Results - Last 24 Hours (Table) 10/24/18 10/25/18 10/25/18 Range/Units 22:54 00:06 02:18 WBC (3.8-10.6) k/uL Hgb (11.4-16.0) gm/dL MCHC (31.0-37.0) g/dL Plt Count (150-450) k/uL ABG pH (7.35-7.45) ABG pCO2 (35-45) mmHg ABG pO2 (83-108) mmHg ABG Total CO2 (19-24) mmol/L ABG O2 Saturation (94-97) % Chloride (98-107) mmol/L BUN (7-17) mg/dL Creatinine (0.52-1.04) mg/dL Glucose (74-99) mg/dL POC Glucose (mg/dL) 182 H 174 H 175 H (75-99) mg/dL Total Protein (6.3-8.2) g/dL Albumin (3.5-5.0) g/dL 10/25/18 10/25/18 10/25/18 Range/Units 03:10 04:20 05:04 WBC (3.8-10.6) k/uL Hgb (11.4-16.0) gm/dL MCHC (31.0-37.0) g/dL Plt Count (150-450) k/uL ABG pH (7.35-7.45) ABG pCO2 (35-45) mmHg ABG pO2 (83-108) mmHg ABG Total CO2 (19-24) mmol/L ABG O2 Saturation (94-97) % Chloride 114 H (98-107) mmol/L BUN 48 H (7-17) mg/dL Creatinine 1.29 H (0.52-1.04) mg/dL Glucose 191 H (74-99) mg/dL POC Glucose (mg/dL) 171 H 215 H (75-99) mg/dL Total Protein 5.7 L (6.3-8.2) g/dL Albumin 3.0 L (3.5-5.0) g/dL 10/25/18 10/25/18 10/25/18 Range/Units 05:04 05:08 05:14 WBC 12.4 H (3.8-10.6) k/uL Hgb 10.6 L (11.4-16.0) gm/dL MCHC 30.0 L (31.0-37.0) g/dL Plt Count 694 H (150-450) k/uL ABG pH 7.30 L (7.35-7.45) ABG pCO2 48 H (35-45) mmHg ABG pO2 67 L (83-108) mmHg ABG Total CO2 25 H (19-24) mmol/L ABG O2 Saturation 91.7 L (94-97) % Chloride (98-107) mmol/L BUN (7-17) mg/dL Creatinine (0.52-1.04) mg/dL Glucose (74-99) mg/dL POC Glucose (mg/dL) 182 H (75-99) mg/dL Total Protein (6.3-8.2) g/dL Albumin (3.5-5.0) g/dL 10/25/18 10/25/18 10/25/18 Range/Units 06:15 07:11 08:06 WBC (3.8-10.6) k/uL Hgb (11.4-16.0) gm/dL MCHC (31.0-37.0) g/dL Plt Count (150-450) k/uL ABG pH (7.35-7.45) ABG pCO2 (35-45) mmHg ABG pO2 (83-108) mmHg ABG Total CO2 (19-24) mmol/L ABG O2 Saturation (94-97) % Chloride (98-107) mmol/L BUN (7-17) mg/dL Creatinine (0.52-1.04) mg/dL Glucose (74-99) mg/dL POC Glucose (mg/dL) 190 H 199 H 209 H (75-99) mg/dL Total Protein (6.3-8.2) g/dL Albumin (3.5-5.0) g/dL 10/25/18 10/25/18 10/25/18 Range/Units 08:57 10:06 10:52 WBC (3.8-10.6) k/uL Hgb (11.4-16.0) gm/dL MCHC (31.0-37.0) g/dL Plt Count (150-450) k/uL ABG pH (7.35-7.45) ABG pCO2 (35-45) mmHg ABG pO2 (83-108) mmHg ABG Total CO2 (19-24) mmol/L ABG O2 Saturation (94-97) % Chloride (98-107) mmol/L BUN (7-17) mg/dL Creatinine (0.52-1.04) mg/dL Glucose (74-99) mg/dL POC Glucose (mg/dL) 218 H 236 H 245 H (75-99) mg/dL Total Protein (6.3-8.2) g/dL Albumin (3.5-5.0) g/dL 10/25/18 10/25/18 10/25/18 Range/Units 12:02 12:51 14:01 WBC (3.8-10.6) k/uL Hgb (11.4-16.0) gm/dL MCHC (31.0-37.0) g/dL Plt Count (150-450) k/uL ABG pH (7.35-7.45) ABG pCO2 (35-45) mmHg ABG pO2 (83-108) mmHg ABG Total CO2 (19-24) mmol/L ABG O2 Saturation (94-97) % Chloride (98-107) mmol/L BUN (7-17) mg/dL Creatinine (0.52-1.04) mg/dL Glucose (74-99) mg/dL POC Glucose (mg/dL) 231 H 204 H 214 H (75-99) mg/dL Total Protein (6.3-8.2) g/dL Albumin (3.5-5.0) g/dL 10/25/18 10/25/18 10/25/18 Range/Units 14:58 16:02 17:11 WBC (3.8-10.6) k/uL Hgb (11.4-16.0) gm/dL MCHC (31.0-37.0) g/dL Plt Count (150-450) k/uL ABG pH (7.35-7.45) ABG pCO2 (35-45) mmHg ABG pO2 (83-108) mmHg ABG Total CO2 (19-24) mmol/L ABG O2 Saturation (94-97) % Chloride (98-107) mmol/L BUN (7-17) mg/dL Creatinine (0.52-1.04) mg/dL Glucose (74-99) mg/dL POC Glucose (mg/dL) 202 H 183 H 186 H (75-99) mg/dL Total Protein (6.3-8.2) g/dL Albumin (3.5-5.0) g/dL 10/25/18 10/25/18 10/25/18 Range/Units 18:05 19:04 19:48 WBC (3.8-10.6) k/uL Hgb (11.4-16.0) gm/dL MCHC (31.0-37.0) g/dL Plt Count (150-450) k/uL ABG pH (7.35-7.45) ABG pCO2 (35-45) mmHg ABG pO2 (83-108) mmHg ABG Total CO2 (19-24) mmol/L ABG O2 Saturation (94-97) % Chloride (98-107) mmol/L BUN (7-17) mg/dL Creatinine (0.52-1.04) mg/dL Glucose (74-99) mg/dL POC Glucose (mg/dL) 213 H 205 H 194 H (75-99) mg/dL Total Protein (6.3-8.2) g/dL Albumin (3.5-5.0) g/dL 10/25/18 10/25/18 Range/Units 21:00 21:54 WBC (3.8-10.6) k/uL Hgb (11.4-16.0) gm/dL MCHC (31.0-37.0) g/dL Plt Count (150-450) k/uL ABG pH (7.35-7.45) ABG pCO2 (35-45) mmHg ABG pO2 (83-108) mmHg ABG Total CO2 (19-24) mmol/L ABG O2 Saturation (94-97) % Chloride (98-107) mmol/L BUN (7-17) mg/dL Creatinine (0.52-1.04) mg/dL Glucose (74-99) mg/dL POC Glucose (mg/dL) 208 H 221 H (75-99) mg/dL Total Protein (6.3-8.2) g/dL Albumin (3.5-5.0) g/dL Laboratory Results WBC 12.4 k/uL (3.8-10.6) H 10/25/18 05:04 RBC 3.83 m/uL (3.80-5.40) 10/25/18 05:04 Hgb 10.6 gm/dL (11.4-16.0) L 10/25/18 05:04 Hct 35.3 % (34.0-46.0) 10/25/18 05:04 MCV 92.1 fL (80.0-100.0) 10/25/18 05:04 MCH 27.6 pg (25.0-35.0) 10/25/18 05:04 MCHC 30.0 g/dL (31.0-37.0) L 10/25/18 05:04 RDW 14.8 % (11.5-15.5) 10/25/18 05:04 Plt Count 694 k/uL (150-450) H 10/25/18 05:04 Neutrophils % 78 % 10/16/18 09:11 Lymphocytes % 17 % 10/16/18 09:11 Monocytes % 3 % 10/16/18 09:11 Eosinophils % 0 % 10/16/18 09:11 Basophils % 0 % 10/16/18 09:11 Neutrophils # 4.9 k/uL (1.3-7.7) 10/16/18 09:11 Lymphocytes # 1.1 k/uL (1.0-4.8) 10/16/18 09:11 Monocytes # 0.2 k/uL (0-1.0) 10/16/18 09:11 Eosinophils # 0.0 k/uL (0-0.7) 10/16/18 09:11 Basophils # 0.0 k/uL (0-0.2) 10/16/18 09:11 Hypochromasia Marked 10/25/18 05:04 PT 10.5 sec (9.0-12.0) 10/13/18 23:47 INR 1.0 (<1.2) 10/13/18 23:47 APTT 28.8 sec (22.0-30.0) 10/13/18 23:47 Sample Site rra 10/25/18 05:14 ABG pH 7.30 (7.35-7.45) L 10/25/18 05:14 ABG pCO2 48 mmHg (35-45) H 10/25/18 05:14 ABG pO2 67 mmHg (83-108) L 10/25/18 05:14 ABG HCO3 23 mmol/L (21-25) 10/25/18 05:14 ABG Total CO2 25 mmol/L (19-24) H 10/25/18 05:14 ABG O2 Saturation 91.7 % (94-97) L 10/25/18 05:14 ABG Base Excess -3.0 mmol/L 10/25/18 05:14 Maxime Test Yes 10/25/18 05:14 FiO2 55 % 10/25/18 05:14 Sodium 144 mmol/L (137-145) 10/25/18 05:04 Potassium 5.1 mmol/L (3.5-5.1) 10/25/18 05:04 Chloride 114 mmol/L (98-107) H 10/25/18 05:04 Carbon Dioxide 23 mmol/L (22-30) 10/25/18 05:04 Anion Gap 7 mmol/L 10/25/18 05:04 BUN 48 mg/dL (7-17) H 10/25/18 05:04 Creatinine 1.29 mg/dL (0.52-1.04) H 10/25/18 05:04 Est GFR (CKD-EPI)AfAm 52 (>60 ml/min/1.73 sqM) 10/25/18 05:04 Est GFR (CKD-EPI)NonAf 46 (>60 ml/min/1.73 sqM) 10/25/18 05:04 Glucose 191 mg/dL (74-99) H 10/25/18 05:04 POC Glucose (mg/dL) 221 mg/dL (75-99) H 10/25/18 21:54 POC Glu Ticket Dispatcher BRIANDA Gina Bain 10/25/18 21:[address] Glu mg/dL 186 10/15/18 06:32 Hemoglobin A1c 8.1 % (4.0-6.0) H 10/15/18 06:32 Plasma Lactic Acid Bola 0.8 mmol/L (0.7-2.0) 10/16/18 16:53 Calcium 8.7 mg/dL (8.4-10.2) 10/25/18 05:04 Phosphorus 4.1 mg/dL (2.5-4.5) 10/25/18 05:04 Magnesium 2.1 mg/dL (1.6-2.3) 10/25/18 05:04 Total Bilirubin 0.4 mg/dL (0.2-1.3) 10/25/18 05:04 AST 21 U/L (14-36) 10/25/18 05:04 ALT 32 U/L (9-52) 10/25/18 05:04 Alkaline Phosphatase 76 U/L (38-126) 10/25/18 05:04 NT-Pro-B Natriuret Pep 256 pg/mL 10/15/18 06:32 Total Protein 5.7 g/dL (6.3-8.2) L 10/25/18 05:04 Albumin 3.0 g/dL (3.5-5.0) L 10/25/18 05:04 Amylase 83 U/L (30-110) 10/20/18 06:04 Lipase 190 U/L (23-300) 10/20/18 06:04 Urine Color Light Yellow 10/20/18 01:00 Urine Appearance Cloudy (Clear) H 10/20/18 01:00 Urine pH 5.5 (5.0-8.0) 10/20/18 01:00 Ur Specific [place] 1.011 (1.001-1.035) 10/20/18 01:00 Urine Protein 1+ (Negative) H 10/20/18 01:00 Urine Glucose (UA) Negative (Negative) 10/20/18 01:00 Urine Ketones Negative (Negative) 10/20/18 01:00 Urine Blood Small (Negative) H 10/20/18 01:00 Urine Nitrite Negative (Negative) 10/20/18 01:00 Urine Bilirubin Negative (Negative) 10/20/18 01:00 Urine Urobilinogen <2.0 mg/dL (<2.0) 10/20/18 01:00 Ur Leukocyte Esterase Negative (Negative) 10/20/18 01:00 Urine RBC 3 /hpf (0-5) 10/20/18 01:00 Urine WBC 1 /hpf (0-5) 10/20/18 01:00 Ur Squamous Epith Cells <1 /hpf (0-4) 10/20/18 01:00 Amorphous Sediment Occasional /hpf (None) H 10/20/18 01:00 Urine Bacteria Rare /hpf (None) H 10/13/18 18:06 Urine Mucus Rare /hpf (None) H 10/20/18 01:00 Fluid Source Bronchial Wash 10/21/18 13:00 Fluid Color Colorless 10/21/18 13:00 Fluid Appearance Cloudy 10/21/18 13:00 Fluid RBC 730 /uL 10/21/18 13:00 Fluid Nucleated Cells 515 /uL 10/21/18 13:00 Fluid Polynuclear WBCs 20 % 10/21/18 13:00 Fluid Mononuclear WBCs 80 % 10/21/18 13:00 Stool Occult Blood Positive (Negative) H 10/21/18 23:34 Vancomycin Trough 24.7 ug/mL 10/20/18 06:04 Random Vancomycin 17.9 ug/mL 10/21/18 05:13 C. difficile (EIA) Intrp Negative (Negative) 10/21/18 23:31 Influenza Type A RNA Not Detected (Not Detectd) 10/22/18 18:10 Influenza Type B (PCR) Not Detected (Not Detectd) 10/22/18 18:10 Urine Legionella Ag Not detected (Not detected) 10/22/18 18:10 Mycoplasma pneumon IgG 0.67 INDEX (<=0.90) 10/22/18 18:28 Mycoplasma pneumon IgM 0.09 INDEX (<=0.90) 10/22/18 18:28 Virus Source See Below 10/21/18 13:00 Viral Test See Below H 10/21/18 13:00 Virus Analysis Interp See Below 10/21/18 13:00 Microbiology 10/21/18 13:00 Bronchial Washings - Left Fungal Culture - Preliminary Aminta albicans 10/21/18 13:00 Bronchial Washings - Left Gram Stain - Final 10/21/18 13:00 Bronchial Washings - Left Bronchial Washings Culture - Final 10/20/18 00:10 Sputum Gram Stain - Final 10/20/18 00:10 Sputum Sputum Culture - Final 10/21/18 13:00 Bronchial Washings - Left Acid Fast Bacilli Smear - Final 10/21/18 13:00 Bronchial Washings - Left Acid Fast Bacilli Culture - Pre liminary 10/18/18 08:20 Sputum Gram Stain - Final 10/18/18 08:20 Sputum Sputum Culture - Final Aminta albicans 10/13/18 23:47 Blood Blood Culture - Final No Growth after 144 hours 10/13/18 18:06 Urine,Voided Urine Culture - Final Assessment and Plan (1) Paroxysmal atrial fibrillation with rapid ventricular response Current Visit: Yes Status: Acute Code(s): I48.0 - PAROXYSMAL ATRIAL FIBRILLATION SNOMED Code(s): 628321603 (2) Bilateral pneumonia Narrative/Plan: 58-year-old female presents to hospital with a several-day history of increasing illness this is high-grade fever chills or malaise and cough without much sputum production. There is evidence of pneumonia minimally by chest x-ray the patient was remaining very ill with fevers of 103 despite antibiotic therapy. A consult was requested and at that time antibiotic therapy was altered to cover for gram negatives including Pseudomonas as well as resistant gram-positive pathogen such as MRSA and vancomycin was added. For fever Toradol was added given the normal renal function and there is no evidence of improvement of how the patient is feeling with this. Fevers have trended to improvement. Will allow further doses of Toradol Renal function to be followed The patient is requiring oxygen therapy and this is being monitored also. Blood glucoses are being monitored. Leukocytosis is trending to improvement Diarrhea did occur and C. diff testing was negative. Lomotil be requested to improve some diarrhea patient encouraged to utilize yogurt with meals. 10/17/2018 is noted the patient had acute worsening of her status with recurrent fever to 103 with the development of atrial fibrillation with rapid ventricular response and transferred to intensive care unit. She's been seen by pulmonary critical care. If there is no further improvement will consider bron choscopy. Her fever has now resolved and she feels just minimally better. Does complain of a significant oral discomfort cool solution requested 10/18/2018 he shouldn't is improved today. She is less short of breath. The subdural discomfort is improved and has done well with the cool solution. She is eating today. There is no further fever or chills Pruritic chest discomforts have improved She is starting to mobilize some secretions which has helped her shortness of breath. Appetite poor but she is eating without difficulty Continue current antibiotic therapy, no plans for bronchoscopy at this time 10/19/2018 patient has had some further improvement. She is less short of breath. She is on less oxygen. She's having no further fevers. Mobilizing secretions better. Appetite is adequate. Leukocytosis is improving. She had an increase of her creatinine to 1.15 and ketorolac has been discontinued. Vancomycin levels being monitored closely regarding the treatment of her extensive pneumonia. 10/20/2018 is noted the patient is now had worsening of her status with respiratory failure requiring intubation sedation and mechanical ventilation. She is being followed by pulmonary critical care, with her marked alteration is status bronchoscopy would be helpful for further deep specimens giving all the negative culture so far. Given the lack of any positive blood cultures and no evidence of any resistant gram-positive pathogens, and with the increasing creatinine we'll discontinue vancomycin at this point in time and monitor. 10/21/2018 patient remains intubated state and mechanically ventilated however is now had bronchoscopy performed. Hopefully will have in addition to therapeutic response a diagnostic response which will further help course of therapy. Creatinine is up to 1.61 vancomycin was discontinued yesterday. We'll monitor cultures for any further needs. Legionella was negative. 10/24/2018 is noted the patient developed respiratory failure requiring intu bation sedation and mechanical ventilation. She also had atrial fibrillation requiring intravenous amiodarone and was hypotensive requiring vasopressor therapy. There is not improvement she is off of vasopressor therapy, and amiodarone has been transitioned to oral. Her blood pressure and heart rate have improved. Respiratory status remains such that she is on FiO2 55% and PEEP of 8. If there is no rapid improvement she will likely transition to tracheostomy and PEG tube soon to allow for long-term weaning solution in this bout of primary respiratory failure., Complicated by underlying cardiac dysrhythmia which has improved. Only adenovirus has come back as a positive no other pathogens were detected up till this point in time. 10/25/2018 patient Little change of her status isnow on a peep of 12. Case is discussed with pulmonary critical care. If she does not have rapid improvement will likely proceed onto tracheostomy and PEG tube placement for long-term weaning. Bronchoscopy specimens are still finishing in the microbiology lab. No pathogens found so far other than adenovirus. We'll complete a course of Zosyn, vancomycin was discontinued with no evidence of any resistant gram- positive pathogens. Current Visit: Yes Status: Acute Code(s): J18.9 - PNEUMONIA, UNSPECIFIED ORGANISM SNOMED Code(s): 052615973 (3) Fever Current Visit: Yes Status: Acute Code(s): R50.9 - FEVER, UNSPECIFIED SNOMED Code(s): 967295981 (4) Leukocytosis Current Visit: Yes Status: Acute Code(s): D72.829 - ELEVATED WHITE BLOOD CELL COUNT, UNSPECIFIED SNOMED Code(s): 960996862
[2018-10-25] MEDS ORDERED: IPRATROPIUM-ALBUTEROL 3 ML NEB ONE (23:35)
[2018-10-26] MEDS: PROPOFOL 1,000 MG in EMPTY BAG 1 BAG IV SCH ×6 (01:20→22:31)
[2018-10-26 03:47] LABS: Glucose,Whole Blood 199 mg/dL (75-99)
[2018-10-26 03:47] LABS: Glucose,Whole Blood 205 mg/dL (75-99)
[2018-10-26 03:47] LABS: Glucose,Whole Blood 203 mg/dL (75-99)
[2018-10-26 03:47] LABS: Glucose,Whole Blood 212 mg/dL (75-99)
[2018-10-26 03:47] LABS: Glucose,Whole Blood 187 mg/dL (75-99)
[2018-10-26] MEDS ORDERED: IPRATROPIUM-ALBUTEROL 3 ML NEB ONE (04:00)
[2018-10-26 04:09] LABS: Glucose,Whole Blood 182 mg/dL (75-99)
[2018-10-26] MEDS: INSULIN REGULAR 100 UNIT in SODIUM CHLORIDE 0.9% 100 ML IV SCH ×2 (04:50→18:03)
[2018-10-26] MEDS: IPRATROPIUM-ALBUTEROL 3 ML NEB INHALATION SCH ×5 (04:59→19:01)
[2018-10-26] MEDS: NOREPINEPHRINE 4 MG in SODIUM CHLORIDE 0.9% 250 ML IV SCH ×2 (05:03→15:09)
[2018-10-26 05:06] LABS: Glucose,Whole Blood 181 mg/dL (75-99)
[2018-10-26] MEDS: HYDROmorphone 1 MG/ML 1 ML SYRINGE IVP PRN ×3 (05:12→22:48)
[2018-10-26] MEDS: PIPERACILLIN-TAZOBACTAM 3.375 GM in SODIUM CHLORIDE 0.9% 100 ML IVPB SCH ×3 (05:16→20:12)
[2018-10-26] MEDS: methylPREDNISolone SOD SUCCI 125 MG/2 ML VIAL IV SCH ×3 (05:29→17:30)
[2018-10-26] MEDS: DILTIAZEM 125 MG in SODIUM CHLORIDE 0.9% 100 ML IV SCH ×2 (05:33→18:44)
[2018-10-26 05:56] LABS: Glucose,Whole Blood 170 mg/dL (75-99)
[2018-10-26 06:17] LABS: HCT 32.6 % (34.0-46.0); Hypochromasia Marked; MCH 28.8 pg (25.0-35.0); MCHC 30.8 g/dL (31.0-37.0); MCV 93.5 fL (80.0-100.0); Mean Platelet Volume 7.5; Platelet Count 662 k/uL (150-450); RBC 3.49 m/uL (3.80-5.40); RDW 14.8 % (11.5-15.5)
[2018-10-26 06:39] LABS: Albumin 2.7 g/dL (3.5-5.0); Calcium 8.8 mg/dL (8.4-10.2); Potassium 4.9 mmol/L (3.5-5.1); Total Bilirubin 0.3 mg/dL (0.2-1.3); Total Protein 5.3 g/dL (6.3-8.2)
[2018-10-26 07:27] LABS: ABG Base Excess -2.9 mmol/L; ABG HCO3 23 mmol/L (21-25); ABG Oxygen Saturation 94.2 % (94-97); ABG PCO2 47 mmHg (35-45); ABG PH 7.31 (7.35-7.45); ABG PO2 75 mmHg (83-108); ABG TCO2 25 mmol/L (19-24); Allen Test Performed? Yes
[2018-10-26] MEDS: FORMOTEROL FUMARATE 20 MCG/2 ML NEBU INHALATION SCH ×2 (07:45→19:01)
[2018-10-26] MEDS: BUDESONIDE 1 MG/2 ML NEBU INHALATION SCH ×2 (07:45→19:01)
[2018-10-26 08:02] LABS: Glucose,Whole Blood 177 mg/dL (75-99)
[2018-10-26] MEDS: PANTOPRAZOLE 40 MG/10 ML VIAL IVP SCH ×2 (08:19→20:02)
[2018-10-26] MEDS: CHLORHEXIDINE GLUCONATE 15 ML CUP MUCOUS MEM SCH ×2 (08:19→20:02)
[2018-10-26] MEDS: APIXABAN 2.5 MG TABLET PO SCH (08:20)
[2018-10-26] MEDS: MAGNESIUM OXIDE 400 MG TAB PO SCH (08:20)
[2018-10-26] MEDS: AMIODARONE 200 MG TAB PO SCH ×2 (08:20→20:00)
[2018-10-26] MEDS: METOPROLOL TARTRATE 25 MG TAB PO SCH ×2 (08:20→20:00)
[2018-10-26] MEDS: amLODIPine 2.5 MG TAB PO SCH (08:25)
[2018-10-26] MEDS: MAG HYDROX/AL HYDROX/SIMETH 30 ML, LIDOCAINE VISCOUS 30 ML, NYSTATIN 100,000 UNIT/ML SU... PO SCH ×12 (08:26→22:35)
[2018-10-26 09:01] LABS: Glucose,Whole Blood 195 mg/dL (75-99)
--- NOTE | 2018-10-26 09:02 | PN ---
PROGRESS NOTE Mrs. Cota is in sinus rhythm today. She is comfortable. She seems to be doing a little better hemodynamically, weaning efforts may resume today. However, this lady was given a bolus of amiodarone and converted to sinus rhythm. Her hemoglobin is stable. There is no further hematuria. Blood pressure is 118/70, pulse rate is 80 per minute. S1, S2 heard normally. Lungs reveal diminished air entry assisted ventilator. Abdomen and lower extremity exam unchanged. Plan is to continue current medical regimen including the lower dose of Eliquis. Hopefully weaning efforts will start today if she is able to tolerate it. MMODL / IJN: [id number] /
--- NOTE | 2018-10-26 09:06 | XR ---
EXAMINATION TYPE: XR chest 1V portable DATE OF EXAM: 10/26/2018 COMPARISON: Prior chest x-ray 10/25/2018 HISTORY: Intubated TECHNIQUE: Single frontal view of the chest is obtained. FINDINGS: Endotracheal tube, orogastric tube are overlying appropriate positions. Pleural parenchyma l changes are not changed. Heart remains enlarged. There are overlying cardiac leads. IMPRESSION: Correlate for pneumonia. Congestive heart failure not excluded. Follow-up recommended.
--- NOTE | 2018-10-26 09:46 | P.PN ---
Subjective Patient is seen in follow-up for acute kidney injury. Baseline creatinine is near 1. It peaked at 1.6 on this admission and is 1.49 today. She is off Cardizem drip. Patient went into hypercapnic respiratory failure and was subsequently intubated on October 19. Remains intubated. She is off vasopressors. Maintained on tube feeding. She is nonoliguric. Currently being treated for pneumonia. Vital signs are stable. General: The patient appeared well nourished and normally developed. HEENT: Head exam is unremarkable. Neck is without jugular venous distension. Intubated. LUNGS: Breath sounds decreased. HEART: Irregular rate and rhythm. ABDOMEN: Abdominal exam reveals normal bowel sounds. Non-tender. EXTREMITITES: Trace edema. Objective - Vital Signs Vital signs: Vital Signs Temp 98.2 F 10/26/18 08:00 Pulse 86 10/26/18 09:00 Resp 16 10/26/18 09:00 BP 151/91 10/26/18 09:00 Pulse Ox 96 10/26/18 09:00 Intake & Output 10/25/18 10/26/18 10/26/18 18:59 06:59 18:59 Intake Total 7249.951 2058.635 407.276 Output Total 1695 1340 265 Balance -71.283 124.635 142.276 Weight 101.3 kg Intake: IV 600 390 140 Amiodarone bolus 100 Piperacillin-Tazobactam 3 100 150 100 .375 gm In Sodium Chloride 0.9% 100 ml @ 25 mls/hr IVPB Q8H [facility] Rx#: [id number] Sodium Chloride 0.9% 1, 200 000 ml @ 100 mls/hr IV . Q10H [facility] Rx#:[id number] Sodium Chloride 0.9% 1, 200 240 40 000 ml @ 20 mls/hr IV . Q24H [facility] Rx#:[id number] Intake, IV Titration 399.717 396.635 150.276 Amount Diltiazem 125 mg In 61.333 Sodium Chloride 0.9% 100 ml @ 10 MG/HR 10 mls/hr IV .[id number] [facility] Rx#: [id number] Insulin Regular 100 unit 107.127 110.023 12.541 In Sodium Chloride 0.9% 100 ml @ Per Protocol IV .Q0M [facility] Rx#:[id number] Propofol 1,000 mg In 231.257 286.612 137.735 Empty Bag 1 bag @ Titrate IV .Q0M [facility] Rx#: [id number] Tube Feeding 504 588 87 Other 120 90 30 Output: Urine 1545 1340 265 Stool 150 Other: Voiding Method Indwelling Catheter Indwelling Catheter - Labs CBC & Chem 7: 10/26/18 05:28 10/26/18 05:28 Labs: Abnormal Lab Results - Last 24 Hours (Table) 10/25/18 10/25/18 10/25/18 Range/Units 10:06 10:52 12:02 WBC (3.8-10.6) k/uL RBC (3.80-5.40) m/uL Hgb (11.4-16.0) gm/dL Hct (34.0-46.0) % MCHC (31.0-37.0) g/dL Plt Count (150-450) k/uL ABG pH (7.35-7.45) ABG pCO2 (35-45) mmHg ABG pO2 (83-108) mmHg ABG Total CO2 (19-24) mmol/L Chloride (98-107) mmol/L Carbon Dioxide (22-30) mmol/L BUN (7-17) mg/dL Creatinine (0.52-1.04) mg/dL Glucose (74-99) mg/dL POC Glucose (mg/dL) 236 H 245 H 231 H (75-99) mg/dL Total Protein (6.3-8.2) g/dL Albumin (3.5-5.0) g/dL 10/25/18 10/25/18 10/25/18 Range/Units 12:51 14:01 14:58 WBC (3.8-10.6) k/uL RBC (3.80-5.40) m/uL Hgb (11.4-16.0) gm/dL Hct (34.0-46.0) % MCHC (31.0-37.0) g/dL Plt Count (150-450) k/uL ABG pH (7.35-7.45) ABG pCO2 (35-45) mmHg ABG pO2 (83-108) mmHg ABG Total CO2 (19-24) mmol/L Chloride (98-107) mmol/L Carbon Dioxide (22-30) mmol/L BUN (7-17) mg/dL Creatinine (0.52-1.04) mg/dL Glucose (74-99) mg/dL POC Glucose (mg/dL) 204 H 214 H 202 H (75-99) mg/dL Total Protein (6.3-8.2) g/dL Albumin (3.5-5.0) g/dL 10/25/18 10/25/18 10/25/18 Range/Units 16:02 17:11 18:05 WBC (3.8-10.6) k/uL RBC (3.80-5.40) m/uL Hgb (11.4-16.0) gm/dL Hct (34.0-46.0) % MCHC (31.0-37.0) g/dL Plt Count (150-450) k/uL ABG pH (7.35-7.45) ABG pCO2 (35-45) mmHg ABG pO2 (83-108) mmHg ABG Total CO2 (19-24) mmol/L Chloride (98-107) mmol/L Carbon Dioxide (22-30) mmol/L BUN (7-17) mg/dL Creatinine (0.52-1.04) mg/dL Glucose (74-99) mg/dL POC Glucose (mg/dL) 183 H 186 H 213 H (75-99) mg/dL Total Protein (6.3-8.2) g/dL Albumin (3.5-5.0) g/dL 10/25/18 10/25/18 10/25/18 Range/Units 19:04 19:48 21:00 WBC (3.8-10.6) k/uL RBC (3.80-5.40) m/uL Hgb (11.4-16.0) gm/dL Hct (34.0-46.0) % MCHC (31.0-37.0) g/dL Plt Count (150-450) k/uL ABG pH (7.35-7.45) ABG pCO2 (35-45) mmHg ABG pO2 (83-108) mmHg ABG Total CO2 (19-24) mmol/L Chloride (98-107) mmol/L Carbon Dioxide (22-30) mmol/L BUN (7-17) mg/dL Creatinine (0.52-1.04) mg/dL Glucose (74-99) mg/dL POC Glucose (mg/dL) 205 H 194 H 208 H (75-99) mg/dL Total Protein (6.3-8.2) g/dL Albumin (3.5-5.0) g/dL 10/25/18 10/25/18 10/25/18 Range/Units 21:54 22:50 23:45 WBC (3.8-10.6) k/uL RBC (3.80-5.40) m/uL Hgb (11.4-16.0) gm/dL Hct (34.0-46.0) % MCHC (31.0-37.0) g/dL Plt Count (150-450) k/uL ABG pH (7.35-7.45) ABG pCO2 (35-45) mmHg ABG pO2 (83-108) mmHg ABG Total CO2 (19-24) mmol/L Chloride (98-107) mmol/L Carbon Dioxide (22-30) mmol/L BUN (7-17) mg/dL Creatinine (0.52-1.04) mg/dL Glucose (74-99) mg/dL POC Glucose (mg/dL) 221 H 205 H 212 H (75-99) mg/dL Total Protein (6.3-8.2) g/dL Albumin (3.5-5.0) g/dL 10/26/18 10/26/18 10/26/18 Range/Units 00:56 02:08 03:03 WBC (3.8-10.6) k/uL RBC (3.80-5.40) m/uL Hgb (11.4-16.0) gm/dL Hct (34.0-46.0) % MCHC (31.0-37.0) g/dL Plt Count (150-450) k/uL ABG pH (7.35-7.45) ABG pCO2 (35-45) mmHg ABG pO2 (83-108) mmHg ABG Total CO2 (19-24) mmol/L Chloride (98-107) mmol/L Carbon Dioxide (22-30) mmol/L BUN (7-17) mg/dL Creatinine (0.52-1.04) mg/dL Glucose (74-99) mg/dL POC Glucose (mg/dL) 203 H 187 H 199 H (75-99) mg/dL Total Protein (6.3-8.2) g/dL Albumin (3.5-5.0) g/dL 10/26/18 10/26/18 10/26/18 Range/Units 04:06 05:04 05:28 WBC (3.8-10.6) k/uL RBC (3.80-5.40) m/uL Hgb (11.4-16.0) gm/dL Hct (34.0-46.0) % MCHC (31.0-37.0) g/dL Plt Count (150-450) k/uL ABG pH (7.35-7.45) ABG pCO2 (35-45) mmHg ABG pO2 (83-108) mmHg ABG Total CO2 (19-24) mmol/L Chloride 115 H (98-107) mmol/L Carbon Dioxide 21 L (22-30) mmol/L BUN 61 H (7-17) mg/dL Creatinine 1.49 H (0.52-1.04) mg/dL Glucose 179 H (74-99) mg/dL POC Glucose (mg/dL) 182 H 181 H (75-99) mg/dL Total Protein 5.3 L (6.3-8.2) g/dL Albumin 2.7 L (3.5-5.0) g/dL 10/26/18 10/26/18 10/26/18 Range/Units 05:28 05:30 05:54 WBC 11.0 H (3.8-10.6) k/uL RBC 3.49 L (3.80-5.40) m/uL Hgb 10.0 L (11.4-16.0) gm/dL Hct 32.6 L (34.0-46.0) % MCHC 30.8 L (31.0-37.0) g/dL Plt Count 662 H (150-450) k/uL ABG pH 7.31 L (7.35-7.45) ABG pCO2 47 H (35-45) mmHg ABG pO2 75 L (83-108) mmHg ABG Total CO2 25 H (19-24) mmol/L Chloride (98-107) mmol/L Carbon Dioxide (22-30) mmol/L BUN (7-17) mg/dL Creatinine (0.52-1.04) mg/dL Glucose (74-99) mg/dL POC Glucose (mg/dL) 170 H (75-99) mg/dL Total Protein (6.3-8.2) g/dL Albumin (3.5-5.0) g/dL 10/26/18 10/26/18 Range/Units 07:50 08:49 WBC (3.8-10.6) k/uL RBC (3.80-5.40) m/uL Hgb (11.4-16.0) gm/dL Hct (34.0-46.0) % MCHC (31.0-37.0) g/dL Plt Count (150-450) k/uL ABG pH (7.35-7.45) ABG pCO2 (35-45) mmHg ABG pO2 (83-108) mmHg ABG Total CO2 (19-24) mmol/L Chloride (98-107) mmol/L Carbon Dioxide (22-30) mmol/L BUN (7-17) mg/dL Creatinine (0.52-1.04) mg/dL Glucose (74-99) mg/dL POC Glucose (mg/dL) 177 H 195 H (75-99) mg/dL Total Protein (6.3-8.2) g/dL Albumin (3.5-5.0) g/dL Assessment and Plan Plan: Assessment: 1. Acute kidney injury secondary to ATN secondary to hemodynamic instability, contrast-induced nephropathy and sepsis. Baseline creatinine 1. Creatinine peaked at 1.6 on this admission and is 1.49 today. Trace proteinuria noted on UA. 2. Mild volume overload. Better. Status post IV Lasix October 25. 3. Septic shock secondary to pneumonia maintained on antibiotics. Currently off Levophed. Sputum culture positive for Aminta. 4. A. fib with RVR maintained on oral amiodarone and Lopressor. Also on anticoagulation. Cardiology following. 5. Insulin-dependent diabetes mellitus. 6. Acute hypercapnic respiratory failure. 7. Metabolic acidosis secondary to acute kidney injury. Plan: Maintain tube feeding. Remains off IV fluids. Avoid nephrotoxins. Discontinued Toradol. Continue to monitor renal function and urine output. Wean FiO2.
--- NOTE | 2018-10-26 10:11 | PN ---
PROGRESS NOTE DATE OF SERVICE: 10/26/2018 CRITICAL CARE TIME: 35 minutes. This is a 58-year-old female who was admitted way back on October 14 with sepsis and pneumonia. For hypoxemic respiratory failure, on October 19, she was intubated and mechanically ventilated. She had a bronchoscopy performed on October 21. Anyway, since she has been here, she has really made no progress whatsoever. She remains on the ventilator. We have her on the pressure regulated volume control mode or VC plus mode, with an FiO2 of 50%, PEEP of 12, a targeted tidal volume 350, inspiratory time of 1 second, and a rate of 24 breaths per minute. Her blood gases show pO2 of 75, pCO2 of 47, and a pH of 7.3. She remains on propofol at 40 mcg/kg per per minute, saline at 20 mL an hour. Insulin drip of 5 units an hour and Vital with a rate of 42 and a goal of 42 mL an hour. We are going to consult one of the surgeons for a tracheostomy and PEG tube placement by Wednesday. The patient has really not made any progress whatsoever. We will do a daily interruption of sedation as well. In addition to respiratory failure, secondary to sepsis and pneumonia, she has a history of diabetes mellitus type 2, COPD/asthma, right-sided pleural effusion, and many other medical problems including atrial fibrillation during this hospitalization. Current vital signs are reviewed. Temperature is 98.4, heart rate is 92, respiratory rate 22, blood pressure 142/91 mean 108, saturations are 96%. Appears in no acute distress. There is mild dyssynchrony/asynchrony with the ventilator. This is improved with additional propofol and/or Dilaudid. HEENT: Examination is grossly unremarkable. There is no orally placed endotracheal tube and NG tube. NECK: Supple. Full range of motion. No adenopathy or thyromegaly. Neck veins are flat. CARDIOVASCULAR: Examination reveals regular rhythm and rate. Heart rate about 90 beats per minute. S1, S2 normal. She appears to be in sinus rhythm. LUNGS: Reveal diffuse coarse rhonchi. Breath sounds are diminished. There is prolongation on forced maneuver. RESPIRATORY: Breath sounds equal bilaterally. Coarse rhonchi bilaterally. A few scattered crackles. No wheezes. Breath sounds are equal bilaterally but diminished throughout. ABDOMEN: Obese. Bowel sounds are heard. EXTREMITIES: Intact. Minimal edema. SKIN: Without rash. NEUROLOGIC: Examination could not be adequately performed. Microbiologic data is thus far all negative including bronchial washing, sputum, blood and urine sampling. Current labs include a white count of 11, hemoglobin 10, hematocrit 32.6, platelet count 662,000, sodium 145, potassium 4.9, chloride 115, CO2 of 21, anion gap is 9. BUN and creatinine were 61 and 0.49. Albumin 2.7. Chest x-ray is reviewed. The chest x-ray could be consistent with either pneumonia and/or CHF. Medications are reviewed. ASSESSMENT: 1. Acute hypoxemic hypercapnic respiratory failure secondary to bilateral pneumonia, right greater than left, requiring intubation and mechanical ventilation on October 19. Thus far, the patient has been too unstable to wean and/or has not tolerated weaning. 2. Sepsis and pneumonia. 3. Hypotension, secondary to sepsis, improved. 4. Type 2 diabetes mellitus. 5. History of COPD/asthma, with significant ongoing bronchospasm. 6. History of acute hypoxemic respiratory failure. 7. Right-sided pleural effusion. 8. Multiple other medical problems and comorbidities. PLAN: The patient remains on the pressure regulated, volume control mode of ventilation or VC plus. Her FiO2 is 50%. PEEP is 12. PO2 is 75. She remains on Diprivan at 40 mcg/kg per per minute and insulin drip of 5 units an hour. She is being nourished. Her NS Dr. Fung to see her for possible tracheostomy and PEG tube placement. Overall prognosis remains very guarded. She may need transfer to long-term acute care after intubation and mechanical ventilation. CRITICAL CARE TIME: 35 minutes. PEDRO / SUNDARN: [id number] /
[2018-10-26 10:25] LABS: Glucose,Whole Blood 216 mg/dL (75-99)
[2018-10-26 11:16] LABS: Glucose,Whole Blood 182 mg/dL (75-99)
[2018-10-26 12:26] LABS: Glucose,Whole Blood 174 mg/dL (75-99)
--- NOTE | 2018-10-26 12:42 | P.GSCN ---
<AnneDanuta Celeste - Last Filed: 10/26/18 13:18> History of Present Illness Consult date: 10/26/18 Reason for Consult: trach and peg placement Requesting physician: Fuentes Duran History of present illness: CHIEF COMPLAINT: Trach and PEG placement HISTORY OF PRESENT ILLNESS: 58-year-old female who is admitted to the hospital secondary to bilateral pneumonia. Patient was intubated on October 19 and has remained on mechanical ventilation since that time. Patient has been unable to wean from the ventilator. General surgery was consulted for trach and PEG placement. PAST MEDICAL HISTORY: See list. PAST SURGICAL HISTORY: See list. SOCIAL HISTORY: No illicit drug use. REVIEW OF SYSTEMS: Unable to obtain secondary to continuous sedation and mechanical ventilation PHYSICAL EXAM: VITAL SIGNS: Reviewed. GENERAL: Well-developed in no acute distress sedated on mechanical ventilator. HEENT: ET tube. OG tube with tube feeding infusing. No sclera icterus. Extraocular movements grossly intact. Moist buccal mucosa. Head is atraumatic, normocephalic. ABDOMEN: Soft. Nondistended. Positive bowel sounds. NEUROLOGIC: Sedated on mechanical ventilation ASSESSMENT: 1. Acute hypoxic respiratory failure secondary to bilateral pneumonia requiring mechanical ventilation PLAN: Trach and PEG discussed with at bedside who is agreeable to trach/peg. Will perform Trach/PEG Wednesday Hold [facility] Nurse practitioner note has been reviewed by physician. Signing provider agrees with the documented findings, assessment, and plan of care. Past Medical History Past Medical History: Diabetes Mellitus History of Any Multi-Drug Resistant Organisms: None Reported Past Surgical History: Unable to Obtain Additional Past Surgical History / Comment(s): Bilateral thumbs Past Anesthesia/Blood Transfusion Reactions: Postoperative Nausea & Vomiting (PONV) Past Psychological History: No Psychological Hx Reported Smoking Status: Former smoker Past Alcohol Use History: None Reported Past Drug Use History: None Reported - Past Family History Mother Family Medical History: Renal Disease Father History Unknown: Yes Medications and Allergies Home Medications Medication Instructions Recorded Confirmed Type Albuterol Nebulized [Ventolin 2.5 mg INHALATION RT-QID 10/14/18 10/14/18 History Nebulized] Atorvastatin [Lipitor] 40 mg PO HS 10/14/18 10/14/18 History Budesonide/Formoterol Fumarate 1 puff INHALATION RT-BID 10/14/18 10/14/18 History [Symbicort 80-4.5 Mcg Inhaler] Insulin Aspart [NovoLOG] 10 units SQ AC-TID 10/14/18 10/14/18 History Insulin Detemir (Levemir) [Levemir] 40 unit SQ HS 10/14/18 10/14/18 History Lisinopril 20 mg PO DAILY 10/14/18 10/14/18 History Montelukast [Singulair] 10 mg PO HS 10/14/18 10/14/18 History Omeprazole 20 mg PO DAILY 10/14/18 10/14/18 History Sertraline [Zoloft] 50 mg PO HS 10/14/18 10/14/18 History metFORMIN HCL 500 mg PO BID 10/14/18 10/14/18 History predniSONE 5 mg PO DAILY 10/14/18 10/14/18 History sitaGLIPtin [Januvia] 50 mg PO DAILY 10/14/18 10/14/18 History Apixaban [Eliquis] 5 mg PO BID #60 tab 10/19/18 Rx Allergies Allergy/AdvReac Type Severity Reaction Status Date / Time No Known Allergies Allergy Verified 10/14/18 07:49 Surgical - Exam Vital Signs Temp Pulse Resp BP Pulse Ox 103.1 F H 146 H 24 127/82 95 10/13/18 23:39 10/13/18 23:39 10/13/18 23:39 10/13/18 23:39 10/13/18 23:39 Results - Labs 10/26/18 05:28 10/26/18 05:28 Abnormal Lab Results - Last 24 Hours (Table) 10/25/18 10/25/18 10/25/18 Range/Units 12:51 14:01 14:58 WBC (3.8-10.6) k/uL RBC (3.80-5.40) m/uL Hgb (11.4-16.0) gm/dL Hct (34.0-46.0) % MCHC (31.0-37.0) g/dL Plt Count (150-450) k/uL ABG pH (7.35-7.45) ABG pCO2 (35-45) mmHg ABG pO2 (83-108) mmHg ABG Total CO2 (19-24) mmol/L Chloride (98-107) mmol/L Carbon Dioxide (22-30) mmol/L BUN (7-17) mg/dL Creatinine (0.52-1.04) mg/dL Glucose (74-99) mg/dL POC Glucose (mg/dL) 204 H 214 H 202 H (75-99) mg/dL Total Protein (6.3-8.2) g/dL Albumin (3.5-5.0) g/dL 10/25/18 10/25/18 10/25/18 Range/Units 16:02 17:11 18:05 WBC (3.8-10.6) k/uL RBC (3.80-5.40) m/uL Hgb (11.4-16.0) gm/dL Hct (34.0-46.0) % MCHC (31.0-37.0) g/dL Plt Count (150-450) k/uL ABG pH (7.35-7.45) ABG pCO2 (35-45) mmHg ABG pO2 (83-108) mmHg ABG Total CO2 (19-24) mmol/L Chloride (98-107) mmol/L Carbon Dioxide (22-30) mmol/L BUN (7-17) mg/dL Creatinine (0.52-1.04) mg/dL Glucose (74-99) mg/dL POC Glucose (mg/dL) 183 H 186 H 213 H (75-99) mg/dL Total Protein (6.3-8.2) g/dL Albumin (3.5-5.0) g/dL 10/25/18 10/25/18 10/25/18 Range/Units 19:04 19:48 21:00 WBC (3.8-10.6) k/uL RBC (3.80-5.40) m/uL Hgb (11.4-16.0) gm/dL Hct (34.0-46.0) % MCHC (31.0-37.0) g/dL Plt Count (150-450) k/uL ABG pH (7.35-7.45) ABG pCO2 (35-45) mmHg ABG pO2 (83-108) mmHg ABG Total CO2 (19-24) mmol/L Chloride (98-107) mmol/L Carbon Dioxide (22-30) mmol/L BUN (7-17) mg/dL Creatinine (0.52-1.04) mg/dL Glucose (74-99) mg/dL POC Glucose (mg/dL) 205 H 194 H 208 H (75-99) mg/dL Total Protein (6.3-8.2) g/dL Albumin (3.5-5.0) g/dL 10/25/18 10/25/18 10/25/18 Range/Units 21:54 22:50 23:45 WBC (3.8-10.6) k/uL RBC (3.80-5.40) m/uL Hgb (11.4-16.0) gm/dL Hct (34.0-46.0) % MCHC (31.0-37.0) g/dL Plt Count (150-450) k/uL ABG pH (7.35-7.45) ABG pCO2 (35-45) mmHg ABG pO2 (83-108) mmHg ABG Total CO2 (19-24) mmol/L Chloride (98-107) mmol/L Carbon Dioxide (22-30) mmol/L BUN (7-17) mg/dL Creatinine (0.52-1.04) mg/dL Glucose (74-99) mg/dL POC Glucose (mg/dL) 221 H 205 H 212 H (75-99) mg/dL Total Protein (6.3-8.2) g/dL Albumin (3.5-5.0) g/dL 10/26/18 10/26/18 10/26/18 Range/Units 00:56 02:08 03:03 WBC (3.8-10.6) k/uL RBC (3.80-5.40) m/uL Hgb (11.4-16.0) gm/dL Hct (34.0-46.0) % MCHC (31.0-37.0) g/dL Plt Count (150-450) k/uL ABG pH (7.35-7.45) ABG pCO2 (35-45) mmHg ABG pO2 (83-108) mmHg ABG Total CO2 (19-24) mmol/L Chloride (98-107) mmol/L Carbon Dioxide (22-30) mmol/L BUN (7-17) mg/dL Creatinine (0.52-1.04) mg/dL Glucose (74-99) mg/dL POC Glucose (mg/dL) 203 H 187 H 199 H (75-99) mg/dL Total Protein (6.3-8.2) g/dL Albumin (3.5-5.0) g/dL 10/26/18 10/26/18 10/26/18 Range/Units 04:06 05:04 05:28 WBC (3.8-10.6) k/uL RBC (3.80-5.40) m/uL Hgb (11.4-16.0) gm/dL Hct (34.0-46.0) % MCHC (31.0-37.0) g/dL Plt Count (150-450) k/uL ABG pH (7.35-7.45) ABG pCO2 (35-45) mmHg ABG pO2 (83-108) mmHg ABG Total CO2 (19-24) mmol/L Chloride 115 H (98-107) mmol/L Carbon Dioxide 21 L (22-30) mmol/L BUN 61 H (7-17) mg/dL Creatinine 1.49 H (0.52-1.04) mg/dL Glucose 179 H (74-99) mg/dL POC Glucose (mg/dL) 182 H 181 H (75-99) mg/dL Total Protein 5.3 L (6.3-8.2) g/dL Albumin 2.7 L (3.5-5.0) g/dL 10/26/18 10/26/18 10/26/18 Range/Units 05:28 05:30 05:54 WBC 11.0 H (3.8-10.6) k/uL RBC 3.49 L (3.80-5.40) m/uL Hgb 10.0 L (11.4-16.0) gm/dL Hct 32.6 L (34.0-46.0) % MCHC 30.8 L (31.0-37.0) g/dL Plt Count 662 H (150-450) k/uL ABG pH 7.31 L (7.35-7.45) ABG pCO2 47 H (35-45) mmHg ABG pO2 75 L (83-108) mmHg ABG Total CO2 25 H (19-24) mmol/L Chloride (98-107) mmol/L Carbon Dioxide (22-30) mmol/L BUN (7-17) mg/dL Creatinine (0.52-1.04) mg/dL Glucose (74-99) mg/dL POC Glucose (mg/dL) 170 H (75-99) mg/dL Total Protein (6.3-8.2) g/dL Albumin (3.5-5.0) g/dL 10/26/18 10/26/18 10/26/18 Range/Units 07:50 08:49 10:14 WBC (3.8-10.6) k/uL RBC (3.80-5.40) m/uL Hgb (11.4-16.0) gm/dL Hct (34.0-46.0) % MCHC (31.0-37.0) g/dL Plt Count (150-450) k/uL ABG pH (7.35-7.45) ABG pCO2 (35-45) mmHg ABG pO2 (83-108) mmHg ABG Total CO2 (19-24) mmol/L Chloride (98-107) mmol/L Carbon Dioxide (22-30) mmol/L BUN (7-17) mg/dL Creatinine (0.52-1.04) mg/dL Glucose (74-99) mg/dL POC Glucose (mg/dL) 177 H 195 H 216 H (75-99) mg/dL Total Protein (6.3-8.2) g/dL Albumin (3.5-5.0) g/dL 10/26/18 10/26/18 Range/Units 11:01 12:14 WBC (3.8-10.6) k/uL RBC (3.80-5.40) m/uL Hgb (11.4-16.0) gm/dL Hct (34.0-46.0) % MCHC (31.0-37.0) g/dL Plt Count (150-450) k/uL ABG pH (7.35-7.45) ABG pCO2 (35-45) mmHg ABG pO2 (83-108) mmHg ABG Total CO2 (19-24) mmol/L Chloride (98-107) mmol/L Carbon Dioxide (22-30) mmol/L BUN (7-17) mg/dL Creatinine (0.52-1.04) mg/dL Glucose (74-99) mg/dL POC Glucose (mg/dL) 182 H 174 H (75-99) mg/dL Total Protein (6.3-8.2) g/dL Albumin (3.5-5.0) g/dL Diabetes panel 10/26/18 Range/Units 05:28 Sodium 145 (137-145) mmol/L Potassium 4.9 (3.5-5.1) mmol/L Chloride 115 H (98-107) mmol/L Carbon Dioxide 21 L (22-30) mmol/L BUN 61 H (7-17) mg/dL Creatinine 1.49 H (0.52-1.04) mg/dL Glucose 179 H (74-99) mg/dL Calcium 8.8 (8.4-10.2) mg/dL AST 15 (14-36) U/L ALT 27 (9-52) U/L Alkaline Phosphatase 60 (38-126) U/L Total Protein 5.3 L (6.3-8.2) g/dL Albumin 2.7 L (3.5-5.0) g/dL Calcium panel 10/26/18 Range/Units 05:28 Calcium 8.8 (8.4-10.2) mg/dL Albumin 2.7 L (3.5-5.0) g/dL Pituitary panel 10/26/18 Range/Units 05:28 Sodium 145 (137-145) mmol/L Potassium 4.9 (3.5-5.1) mmol/L Chloride 115 H (98-107) mmol/L Carbon Dioxide 21 L (22-30) mmol/L BUN 61 H (7-17) mg/dL Creatinine 1.49 H (0.52-1.04) mg/dL Glucose 179 H (74-99) mg/dL Calcium 8.8 (8.4-10.2) mg/dL Adrenal panel 10/26/18 Range/Units 05:28 Sodium 145 (137-145) mmol/L Potassium 4.9 (3.5-5.1) mmol/L Chloride 115 H (98-107) mmol/L Carbon Dioxide 21 L (22-30) mmol/L BUN 61 H (7-17) mg/dL Creatinine 1.49 H (0.52-1.04) mg/dL Glucose 179 H (74-99) mg/dL Calcium 8.8 (8.4-10.2) mg/dL Total Bilirubin 0.3 (0.2-1.3) mg/dL AST 15 (14-36) U/L ALT 27 (9-52) U/L Alkaline Phosphatase 60 (38-126) U/L Total Protein 5.3 L (6.3-8.2) g/dL Albumin 2.7 L (3.5-5.0) g/dL <Jan Fung - Last Filed: 10/26/18 20:36> History of Present Illness History of present illness: As above. Spoke with family regarding the patient's need for tracheostomy and PEG tube. We'll hold eloquis. We'll tentatively schedule for Wednesday. Risks of bleeding, infection, fistula, bowel injury, accidental extraction, . They understand and wish to proceed. Surgical - Exam Vital Signs Temp Pulse Resp BP Pulse Ox 103.1 F H 146 H 24 127/82 95 10/13/18 23:39 10/13/18 23:39 10/13/18 23:39 10/13/18 23:39 10/13/18 23:39 Results - Labs 10/26/18 05:28 10/26/18 05:28 Abnormal Lab Results - Last 24 Hours (Table) 10/25/18 10/25/18 10/25/18 Range/Units 21:00 21:54 22:50 WBC (3.8-10.6) k/uL RBC (3.80-5.40) m/uL Hgb (11.4-16.0) gm/dL Hct (34.0-46.0) % MCHC (31.0-37.0) g/dL Plt Count (150-450) k/uL ABG pH (7.35-7.45) ABG pCO2 (35-45) mmHg ABG pO2 (83-108) mmHg ABG Total CO2 (19-24) mmol/L Chloride (98-107) mmol/L Carbon Dioxide (22-30) mmol/L BUN (7-17) mg/dL Creatinine (0.52-1.04) mg/dL Glucose (74-99) mg/dL POC Glucose (mg/dL) 208 H 221 H 205 H (75-99) mg/dL Total Protein (6.3-8.2) g/dL Albumin (3.5-5.0) g/dL 10/25/18 10/26/18 10/26/18 Range/Units 23:45 00:56 02:08 WBC (3.8-10.6) k/uL RBC (3.80-5.40) m/uL Hgb (11.4-16.0) gm/dL Hct (34.0-46.0) % MCHC (31.0-37.0) g/dL Plt Count (150-450) k/uL ABG pH (7.35-7.45) ABG pCO2 (35-45) mmHg ABG pO2 (83-108) mmHg ABG Total CO2 (19-24) mmol/L Chloride (98-107) mmol/L Carbon Dioxide (22-30) mmol/L BUN (7-17) mg/dL Creatinine (0.52-1.04) mg/dL Glucose (74-99) mg/dL POC Glucose (mg/dL) 212 H 203 H 187 H (75-99) mg/dL Total Protein (6.3-8.2) g/dL Albumin (3.5-5.0) g/dL 10/26/18 10/26/18 10/26/18 Range/Units 03:03 04:06 05:04 WBC (3.8-10.6) k/uL RBC (3.80-5.40) m/uL Hgb (11.4-16.0) gm/dL Hct (34.0-46.0) % MCHC (31.0-37.0) g/dL Plt Count (150-450) k/uL ABG pH (7.35-7.45) ABG pCO2 (35-45) mmHg ABG pO2 (83-108) mmHg ABG Total CO2 (19-24) mmol/L Chloride (98-107) mmol/L Carbon Dioxide (22-30) mmol/L BUN (7-17) mg/dL Creatinine (0.52-1.04) mg/dL Glucose (74-99) mg/dL POC Glucose (mg/dL) 199 H 182 H 181 H (75-99) mg/dL Total Protein (6.3-8.2) g/dL Albumin (3.5-5.0) g/dL 10/26/18 10/26/18 10/26/18 Range/Units 05:28 05:28 05:30 WBC 11.0 H (3.8-10.6) k/uL RBC 3.49 L (3.80-5.40) m/uL Hgb 10.0 L (11.4-16.0) gm/dL Hct 32.6 L (34.0-46.0) % MCHC 30.8 L (31.0-37.0) g/dL Plt Count 662 H (150-450) k/uL ABG pH 7.31 L (7.35-7.45) ABG pCO2 47 H (35-45) mmHg ABG pO2 75 L (83-108) mmHg ABG Total CO2 25 H (19-24) mmol/L Chloride 115 H (98-107) mmol/L Carbon Dioxide 21 L (22-30) mmol/L BUN 61 H (7-17) mg/dL Creatinine 1.49 H (0.52-1.04) mg/dL Glucose 179 H (74-99) mg/dL POC Glucose (mg/dL) (75-99) mg/dL Total Protein 5.3 L (6.3-8.2) g/dL Albumin 2.7 L (3.5-5.0) g/dL 10/26/18 10/26/18 10/26/18 Range/Units 05:54 07:50 08:49 WBC (3.8-10.6) k/uL RBC (3.80-5.40) m/uL Hgb (11.4-16.0) gm/dL Hct (34.0-46.0) % MCHC (31.0-37.0) g/dL Plt Count (150-450) k/uL ABG pH (7.35-7.45) ABG pCO2 (35-45) mmHg ABG pO2 (83-108) mmHg ABG Total CO2 (19-24) mmol/L Chloride (98-107) mmol/L Carbon Dioxide (22-30) mmol/L BUN (7-17) mg/dL Creatinine (0.52-1.04) mg/dL Glucose (74-99) mg/dL POC Glucose (mg/dL) 170 H 177 H 195 H (75-99) mg/dL Total Protein (6.3-8.2) g/dL Albumin (3.5-5.0) g/dL 10/26/18 10/26/18 10/26/18 Range/Units 10:14 11:01 12:14 WBC (3.8-10.6) k/uL RBC (3.80-5.40) m/uL Hgb (11.4-16.0) gm/dL Hct (34.0-46.0) % MCHC (31.0-37.0) g/dL Plt Count (150-450) k/uL ABG pH (7.35-7.45) ABG pCO2 (35-45) mmHg ABG pO2 (83-108) mmHg ABG Total CO2 (19-24) mmol/L Chloride (98-107) mmol/L Carbon Dioxide (22-30) mmol/L BUN (7-17) mg/dL Creatinine (0.52-1.04) mg/dL Glucose (74-99) mg/dL POC Glucose (mg/dL) 216 H 182 H 174 H (75-99) mg/dL Total Protein (6.3-8.2) g/dL Albumin (3.5-5.0) g/dL 10/26/18 10/26/18 10/26/18 Range/Units 13:18 14:27 15:17 WBC (3.8-10.6) k/uL RBC (3.80-5.40) m/uL Hgb (11.4-16.0) gm/dL Hct (34.0-46.0) % MCHC (31.0-37.0) g/dL Plt Count (150-450) k/uL ABG pH (7.35-7.45) ABG pCO2 (35-45) mmHg ABG pO2 (83-108) mmHg ABG Total CO2 (19-24) mmol/L Chloride (98-107) mmol/L Carbon Dioxide (22-30) mmol/L BUN (7-17) mg/dL Creatinine (0.52-1.04) mg/dL Glucose (74-99) mg/dL POC Glucose (mg/dL) 165 H 186 H 165 H (75-99) mg/dL Total Protein (6.3-8.2) g/dL Albumin (3.5-5.0) g/dL 10/26/18 10/26/18 10/26/18 Range/Units 16:07 17:27 18:03 WBC (3.8-10.6) k/uL RBC (3.80-5.40) m/uL Hgb (11.4-16.0) gm/dL Hct (34.0-46.0) % MCHC (31.0-37.0) g/dL Plt Count (150-450) k/uL ABG pH (7.35-7.45) ABG pCO2 (35-45) mmHg ABG pO2 (83-108) mmHg ABG Total CO2 (19-24) mmol/L Chloride (98-107) mmol/L Carbon Dioxide (22-30) mmol/L BUN (7-17) mg/dL Creatinine (0.52-1.04) mg/dL Glucose (74-99) mg/dL POC Glucose (mg/dL) 179 H 177 H 188 H (75-99) mg/dL Total Protein (6.3-8.2) g/dL Albumin (3.5-5.0) g/dL 10/26/18 10/26/18 Range/Units 18:53 19:48 WBC (3.8-10.6) k/uL RBC (3.80-5.40) m/uL Hgb (11.4-16.0) gm/dL Hct (34.0-46.0) % MCHC (31.0-37.0) g/dL Plt Count (150-450) k/uL ABG pH (7.35-7.45) ABG pCO2 (35-45) mmHg ABG pO2 (83-108) mmHg ABG Total CO2 (19-24) mmol/L Chloride (98-107) mmol/L Carbon Dioxide (22-30) mmol/L BUN (7-17) mg/dL Creatinine (0.52-1.04) mg/dL Glucose (74-99) mg/dL POC Glucose (mg/dL) 208 H 147 H (75-99) mg/dL Total Protein (6.3-8.2) g/dL Albumin (3.5-5.0) g/dL Diabetes panel 10/26/18 Range/Units 05:28 Sodium 145 (137-145) mmol/L Potassium 4.9 (3.5-5.1) mmol/L Chloride 115 H (98-107) mmol/L Carbon Dioxide 21 L (22-30) mmol/L BUN 61 H (7-17) mg/dL Creatinine 1.49 H (0.52-1.04) mg/dL Glucose 179 H (74-99) mg/dL Calcium 8.8 (8.4-10.2) mg/dL AST 15 (14-36) U/L ALT 27 (9-52) U/L Alkaline Phosphatase 60 (38-126) U/L Total Protein 5.3 L (6.3-8.2) g/dL Albumin 2.7 L (3.5-5.0) g/dL Calcium panel 10/26/18 Range/Units 05:28 Calcium 8.8 (8.4-10.2) mg/dL Albumin 2.7 L (3.5-5.0) g/dL Pituitary panel 10/26/18 Range/Units 05:28 Sodium 145 (137-145) mmol/L Potassium 4.9 (3.5-5.1) mmol/L Chloride 115 H (98-107) mmol/L Carbon Dioxide 21 L (22-30) mmol/L BUN 61 H (7-17) mg/dL Creatinine 1.49 H (0.52-1.04) mg/dL Glucose 179 H (74-99) mg/dL Calcium 8.8 (8.4-10.2) mg/dL Adrenal panel 10/26/18 Range/Units 05:28 Sodium 145 (137-145) mmol/L Potassium 4.9 (3.5-5.1) mmol/L Chloride 115 H (98-107) mmol/L Carbon Dioxide 21 L (22-30) mmol/L BUN 61 H (7-17) mg/dL Creatinine 1.49 H (0.52-1.04) mg/dL Glucose 179 H (74-99) mg/dL Calcium 8.8 (8.4-10.2) mg/dL Total Bilirubin 0.3 (0.2-1.3) mg/dL AST 15 (14-36) U/L ALT 27 (9-52) U/L Alkaline Phosphatase 60 (38-126) U/L Total Protein 5.3 L (6.3-8.2) g/dL Albumin 2.7 L (3.5-5.0) g/dL
[2018-10-26 13:29] LABS: Glucose,Whole Blood 165 mg/dL (75-99)
[2018-10-26 14:40] LABS: Glucose,Whole Blood 186 mg/dL (75-99)
[2018-10-26 15:28] LABS: Glucose,Whole Blood 165 mg/dL (75-99)
[2018-10-26 16:19] LABS: Glucose,Whole Blood 179 mg/dL (75-99)
[2018-10-26] MEDS: SODIUM CHLORIDE 0.9% 1,000 ML IV SCH (17:31)
[2018-10-26 17:39] LABS: Glucose,Whole Blood 177 mg/dL (75-99)
[2018-10-26 18:14] LABS: Glucose,Whole Blood 188 mg/dL (75-99)
[2018-10-26 19:05] LABS: Glucose,Whole Blood 208 mg/dL (75-99)
[2018-10-26 19:50] LABS: Glucose,Whole Blood 147 mg/dL (75-99)
[2018-10-26] MEDS: ATORVASTATIN 40 MG TAB PO SCH (20:00)
[2018-10-26] MEDS: MONTELUKAST 10 MG TAB PO SCH (20:01)
[2018-10-26] MEDS: SERTRALINE 50 MG TAB PO SCH (20:02)
[2018-10-26 20:59] LABS: Glucose,Whole Blood 165 mg/dL (75-99)
[2018-10-26] MEDS ORDERED: DEXTROSE 5% IN WATER 100 ML with AMIODARONE 150 MG IV ONE (22:01)
[2018-10-26 22:05] LABS: Glucose,Whole Blood 170 mg/dL (75-99)
[2018-10-26 23:05] LABS: Glucose,Whole Blood 162 mg/dL (75-99)
--- NOTE | 2018-10-26 23:33 | P.PN ---
Subjective Progress Note Date: 10/26/18 Principal diagnosis: Sepsis secondary to pneumonia Septic shock Celeste meza is a 58-year-old female known history of asthma, diabetes type 2, hypertension and hyperlipidemia was admitted to the hospital with the complaints of shortness of breath, cough with yellow sputum production 4 days. Patient was lethargic and weak and was confused and she came to the hospital. Patient is being treated for sepsis/septic shock secondary to pneumonia and went into respiratory failure. Currently patient in the MICU. Patient went into atrial fibrillation and was given a dose of Cardizem and converted back to sinus rhythm. 10/25/2018 Patient is currently on mechanical ventilator. Assist control with PEEP of 12, FiO2 50%. Patient went into atrial fibrillation last night and was given amiodarone bolus. Currently on oral amiodarone. Anticoagulation with Eliquis. Being continued on antibiotics the form of Zosyn. Sputum Cultures growing Aminta. Patient is off pressor support. WBC 12.4 and 1.29. Patient has been afebrile otherwise. 10/26/2018 Currently is on mechanical ventilator. Patient is otherwise converted to sinus rhythm. On oral amiodarone now. Patient is being continued on antibiotics in the form of Zosyn. WBC 11.0 patient has been afebrile otherwise. Currently on tube feeding and chest x-ray showed correlate for pneumonia and CHF not excluded. Patient was given a dose of IV Lasix today. Creatinine level is 1.49. Pulmonary, nephrology and cardiology and ID is following. Current medications reviewed. Objective - Vital Signs Vital signs: Vital Signs Temp 98.2 F 10/26/18 08:00 Pulse 86 10/26/18 09:00 Resp 16 10/26/18 09:00 BP 151/91 10/26/18 09:00 Pulse Ox 96 10/26/18 09:00 Intake & Output 10/25/18 10/26/18 10/26/18 18:59 06:59 18:59 Intake Total 2969.576 0431.635 407.276 Output Total 1695 1340 265 Balance -71.283 124.635 142.276 Weight 101.3 kg Intake: IV 600 390 140 Amiodarone bolus 100 Piperacillin-Tazobactam 3 100 150 100 .375 gm In Sodium Chloride 0.9% 100 ml @ 25 mls/hr IVPB Q8H [facility] Rx#: [id number] Sodium Chloride 0.9% 1, 200 000 ml @ 100 mls/hr IV . Q10H [facility] Rx#:[id number] Sodium Chloride 0.9% 1, 200 240 40 000 ml @ 20 mls/hr IV . Q24H [facility] Rx#:[id number] Intake, IV Titration 399.717 396.635 150.276 Amount Diltiazem 125 mg In 61.333 Sodium Chloride 0.9% 100 ml @ 10 MG/HR 10 mls/hr IV .[id number] [facility] Rx#: [id number] Insulin Regular 100 unit 107.127 110.023 12.541 In Sodium Chloride 0.9% 100 ml @ Per Protocol IV .Q0M [facility] Rx#:[id number] Propofol 1,000 mg In 231.257 286.612 137.735 Empty Bag 1 bag @ Titrate IV .Q0M [facility] Rx#: [id number] Tube Feeding 504 588 87 Other 120 90 30 Output: Urine 1545 1340 265 Stool 150 Other: Voiding Method Indwelling Catheter Indwelling Catheter - Exam PHYSICAL EXAMINATION: Patient Is currently sedated and intubated... HEENT: Normocephalic. Neck is supple. Pupils reactive. Nostrils clear. Oral cavity is moist. Ears reveal no drainage. Neck reveals no JVD, carotid bruits, or thyromegaly. CHEST EXAMINATION: Endotracheal tube in place. Trachea is central. Symmetrical expansion. Bibasilar diminished air entry.. CARDIAC: Normal S1, S2 with no gallops. No murmurs ABDOMEN: Soft. Bowel sounds normal. No organomegaly. No abdominal bruits. Fecal collection tube and Alvarez catheter in place. Extremities: reveal no edema. No clubbing or cyanosis Neurologically .patient currently sedated. No gross neurological deficit. Skin: No rash or skin lesions. Psychiatric: Could not be assessed Musculoskeletal: No joint swelling or deformity. - Labs CBC & Chem 7: 10/26/18 05:28 10/26/18 05:28 Labs: Abnormal Lab Results - Last 24 Hours (Table) 10/25/18 10/25/18 10/25/18 Range/Units 10:06 10:52 12:02 WBC (3.8-10.6) k/uL RBC (3.80-5.40) m/uL Hgb (11.4-16.0) gm/dL Hct (34.0-46.0) % MCHC (31.0-37.0) g/dL Plt Count (150-450) k/uL ABG pH (7.35-7.45) ABG pCO2 (35-45) mmHg ABG pO2 (83-108) mmHg ABG Total CO2 (19-24) mmol/L Chloride (98-107) mmol/L Carbon Dioxide (22-30) mmol/L BUN (7-17) mg/dL Creatinine (0.52-1.04) mg/dL Glucose (74-99) mg/dL POC Glucose (mg/dL) 236 H 245 H 231 H (75-99) mg/dL Total Protein (6.3-8.2) g/dL Albumin (3.5-5.0) g/dL 10/25/18 10/25/18 10/25/18 Range/Units 12:51 14:01 14:58 WBC (3.8-10.6) k/uL RBC (3.80-5.40) m/uL Hgb (11.4-16.0) gm/dL Hct (34.0-46.0) % MCHC (31.0-37.0) g/dL Plt Count (150-450) k/uL ABG pH (7.35-7.45) ABG pCO2 (35-45) mmHg ABG pO2 (83-108) mmHg ABG Total CO2 (19-24) mmol/L Chloride (98-107) mmol/L Carbon Dioxide (22-30) mmol/L BUN (7-17) mg/dL Creatinine (0.52-1.04) mg/dL Glucose (74-99) mg/dL POC Glucose (mg/dL) 204 H 214 H 202 H (75-99) mg/dL Total Protein (6.3-8.2) g/dL Albumin (3.5-5.0) g/dL 10/25/18 10/25/18 10/25/18 Range/Units 16:02 17:11 18:05 WBC (3.8-10.6) k/uL RBC (3.80-5.40) m/uL Hgb (11.4-16.0) gm/dL Hct (34.0-46.0) % MCHC (31.0-37.0) g/dL Plt Count (150-450) k/uL ABG pH (7.35-7.45) ABG pCO2 (35-45) mmHg ABG pO2 (83-108) mmHg ABG Total CO2 (19-24) mmol/L Chloride (98-107) mmol/L Carbon Dioxide (22-30) mmol/L BUN (7-17) mg/dL Creatinine (0.52-1.04) mg/dL Glucose (74-99) mg/dL POC Glucose (mg/dL) 183 H 186 H 213 H (75-99) mg/dL Total Protein (6.3-8.2) g/dL Albumin (3.5-5.0) g/dL 10/25/18 10/25/18 10/25/18 Range/Units 19:04 19:48 21:00 WBC (3.8-10.6) k/uL RBC (3.80-5.40) m/uL Hgb (11.4-16.0) gm/dL Hct (34.0-46.0) % MCHC (31.0-37.0) g/dL Plt Count (150-450) k/uL ABG pH (7.35-7.45) ABG pCO2 (35-45) mmHg ABG pO2 (83-108) mmHg ABG Total CO2 (19-24) mmol/L Chloride (98-107) mmol/L Carbon Dioxide (22-30) mmol/L BUN (7-17) mg/dL Creatinine (0.52-1.04) mg/dL Glucose (74-99) mg/dL POC Glucose (mg/dL) 205 H 194 H 208 H (75-99) mg/dL Total Protein (6.3-8.2) g/dL Albumin (3.5-5.0) g/dL 10/25/18 10/25/18 10/25/18 Range/Units 21:54 22:50 23:45 WBC (3.8-10.6) k/uL RBC (3.80-5.40) m/uL Hgb (11.4-16.0) gm/dL Hct (34.0-46.0) % MCHC (31.0-37.0) g/dL Plt Count (150-450) k/uL ABG pH (7.35-7.45) ABG pCO2 (35-45) mmHg ABG pO2 (83-108) mmHg ABG Total CO2 (19-24) mmol/L Chloride (98-107) mmol/L Carbon Dioxide (22-30) mmol/L BUN (7-17) mg/dL Creatinine (0.52-1.04) mg/dL Glucose (74-99) mg/dL POC Glucose (mg/dL) 221 H 205 H 212 H (75-99) mg/dL Total Protein (6.3-8.2) g/dL Albumin (3.5-5.0) g/dL 10/26/18 10/26/18 10/26/18 Range/Units 00:56 02:08 03:03 WBC (3.8-10.6) k/uL RBC (3.80-5.40) m/uL Hgb (11.4-16.0) gm/dL Hct (34.0-46.0) % MCHC (31.0-37.0) g/dL Plt Count (150-450) k/uL ABG pH (7.35-7.45) ABG pCO2 (35-45) mmHg ABG pO2 (83-108) mmHg ABG Total CO2 (19-24) mmol/L Chloride (98-107) mmol/L Carbon Dioxide (22-30) mmol/L BUN (7-17) mg/dL Creatinine (0.52-1.04) mg/dL Glucose (74-99) mg/dL POC Glucose (mg/dL) 203 H 187 H 199 H (75-99) mg/dL Total Protein (6.3-8.2) g/dL Albumin (3.5-5.0) g/dL 10/26/18 10/26/18 10/26/18 Range/Units 04:06 05:04 05:28 WBC (3.8-10.6) k/uL RBC (3.80-5.40) m/uL Hgb (11.4-16.0) gm/dL Hct (34.0-46.0) % MCHC (31.0-37.0) g/dL Plt Count (150-450) k/uL ABG pH (7.35-7.45) ABG pCO2 (35-45) mmHg ABG pO2 (83-108) mmHg ABG Total CO2 (19-24) mmol/L Chloride 115 H (98-107) mmol/L Carbon Dioxide 21 L (22-30) mmol/L BUN 61 H (7-17) mg/dL Creatinine 1.49 H (0.52-1.04) mg/dL Glucose 179 H (74-99) mg/dL POC Glucose (mg/dL) 182 H 181 H (75-99) mg/dL Total Protein 5.3 L (6.3-8.2) g/dL Albumin 2.7 L (3.5-5.0) g/dL 10/26/18 10/26/18 10/26/18 Range/Units 05:28 05:30 05:54 WBC 11.0 H (3.8-10.6) k/uL RBC 3.49 L (3.80-5.40) m/uL Hgb 10.0 L (11.4-16.0) gm/dL Hct 32.6 L (34.0-46.0) % MCHC 30.8 L (31.0-37.0) g/dL Plt Count 662 H (150-450) k/uL ABG pH 7.31 L (7.35-7.45) ABG pCO2 47 H (35-45) mmHg ABG pO2 75 L (83-108) mmHg ABG Total CO2 25 H (19-24) mmol/L Chloride (98-107) mmol/L Carbon Dioxide (22-30) mmol/L BUN (7-17) mg/dL Creatinine (0.52-1.04) mg/dL Glucose (74-99) mg/dL POC Glucose (mg/dL) 170 H (75-99) mg/dL Total Protein (6.3-8.2) g/dL Albumin (3.5-5.0) g/dL 10/26/18 10/26/18 Range/Units 07:50 08:49 WBC (3.8-10.6) k/uL RBC (3.80-5.40) m/uL Hgb (11.4-16.0) gm/dL Hct (34.0-46.0) % MCHC (31.0-37.0) g/dL Plt Count (150-450) k/uL ABG pH (7.35-7.45) ABG pCO2 (35-45) mmHg ABG pO2 (83-108) mmHg ABG Total CO2 (19-24) mmol/L Chloride (98-107) mmol/L Carbon Dioxide (22-30) mmol/L BUN (7-17) mg/dL Creatinine (0.52-1.04) mg/dL Glucose (74-99) mg/dL POC Glucose (mg/dL) 177 H 195 H (75-99) mg/dL Total Protein (6.3-8.2) g/dL Albumin (3.5-5.0) g/dL Assessment and Plan Assessment: Acute hypoxemic and hypercapnic respiratory failure requiring mechanical ventilation. Acute metabolic encephalopathy secondary infection Sepsis/septic shock secondary to right lower lobe pneumonia. Likely community- acquired Atrial fibrillation with rapid regular rate Acute kidney injury secondary to ATN due to hemodynamic instability and sepsis. Creatinine peaked at 1.6. Currently on 1.29--1.49 Insulin-dependent diabetes type 2 Asthma exacerbation Metabolic acidosis Paroxysmal atrial fibrillation Hypovolemic hyponatremia Hyperlipidemia Plan: Patient is currently on mechanical ventilator. Pulmonary is following. Continue with antibiotics in the form of Zosyn. ID is on board. Sputum culture is growing Aminta. Continue with oral amiodarone. Patient was given amiodarone bolus. Converted to sinus rhythm now. Continue the current insulin dosing and titrate as needed. Prognosis is guarded. Discussed with family at bedside in detail. Pulmonary, ID, nephrology is following. Time with Patient: Greater than 30
[2018-10-27 00:04] LABS: Glucose,Whole Blood 180 mg/dL (75-99)
[2018-10-27] MEDS: methylPREDNISolone SOD SUCCI 125 MG/2 ML VIAL IV SCH ×5 (00:13→23:19)
[2018-10-27] MEDS: IPRATROPIUM-ALBUTEROL 3 ML NEB INHALATION SCH ×7 (00:13→23:14)
[2018-10-27 01:11] LABS: Glucose,Whole Blood 163 mg/dL (75-99)
[2018-10-27] MEDS: ACETAMINOPHEN TAB 325 MG TAB PO PRN (01:25)
[2018-10-27 02:59] LABS: Glucose,Whole Blood 153 mg/dL (75-99)
[2018-10-27] MEDS: PROPOFOL 1,000 MG in EMPTY BAG 1 BAG IV SCH ×5 (03:15→21:21)
[2018-10-27] MEDS: HYDROmorphone 1 MG/ML 1 ML SYRINGE IVP PRN ×4 (03:27→21:11)
[2018-10-27 05:06] LABS: Glucose,Whole Blood 154 mg/dL (75-99)
[2018-10-27 05:09] LABS: ABG Base Excess -0.7 mmol/L; ABG HCO3 25 mmol/L (21-25); ABG Oxygen Saturation 97.3 % (94-97); ABG PCO2 47 mmHg (35-45); ABG PH 7.34 (7.35-7.45); ABG PO2 102 mmHg (83-108); ABG TCO2 27 mmol/L (19-24); Allen Test Performed? Yes
[2018-10-27 05:26] LABS: INR 1.1 (<1.2); Prothrombin Time 11.5 sec (9.0-12.0)
[2018-10-27 05:28] LABS: HCT 31.1 % (34.0-46.0); HGB 9.4 gm/dL (11.4-16.0); Hypochromasia Slight; MCH 27.8 pg (25.0-35.0); MCHC 30.1 g/dL (31.0-37.0); MCV 92.5 fL (80.0-100.0); Mean Platelet Volume 7.2; Platelet Count 667 k/uL (150-450); RBC 3.36 m/uL (3.80-5.40); RDW 14.5 % (11.5-15.5); WBC 13.2 k/uL (3.8-10.6)
[2018-10-27 05:34] LABS: Albumin 2.6 g/dL (3.5-5.0); Calcium 8.4 mg/dL (8.4-10.2); Potassium 4.9 mmol/L (3.5-5.1); Total Bilirubin 0.2 mg/dL (0.2-1.3)
[2018-10-27] MEDS: PIPERACILLIN-TAZOBACTAM 3.375 GM in SODIUM CHLORIDE 0.9% 100 ML IVPB SCH ×3 (05:48→21:15)
[2018-10-27] MEDS: NOREPINEPHRINE 4 MG in SODIUM CHLORIDE 0.9% 250 ML IV SCH ×2 (05:51→21:15)
[2018-10-27] MEDS: DILTIAZEM 125 MG in SODIUM CHLORIDE 0.9% 100 ML IV SCH (06:44)
[2018-10-27 07:01] LABS: Glucose,Whole Blood 161 mg/dL (75-99)
[2018-10-27] MEDS: BUDESONIDE 1 MG/2 ML NEBU INHALATION SCH ×2 (07:17→19:19)
[2018-10-27] MEDS: FORMOTEROL FUMARATE 20 MCG/2 ML NEBU INHALATION SCH ×2 (07:17→19:19)
--- NOTE | 2018-10-27 07:54 | XR ---
EXAMINATION TYPE: XR chest 1V portable DATE OF EXAM: 10/27/2018 COMPARISON: Prior chest x-ray 10/26/2018 HISTORY: Ventilated TECHNIQUE: Single frontal view of the chest is obtained. FINDINGS: Endotracheal tube, orogastric tube are overlying appropriate positions. Patient is rotated . Pleural parenchymal changes not significantly changed. IMPRESSION: Correlate for pneumonia. Follow-up recommended.
[2018-10-27 08:11] LABS: Glucose,Whole Blood 169 mg/dL (75-99)
[2018-10-27] MEDS: INSULIN REGULAR 100 UNIT in SODIUM CHLORIDE 0.9% 100 ML IV SCH (08:36)
[2018-10-27] MEDS: AMIODARONE 200 MG TAB PO SCH ×2 (08:52→21:09)
[2018-10-27] MEDS: MAGNESIUM OXIDE 400 MG TAB PO SCH (08:52)
[2018-10-27] MEDS: CHLORHEXIDINE GLUCONATE 15 ML CUP MUCOUS MEM SCH ×2 (08:52→21:11)
[2018-10-27] MEDS: amLODIPine 2.5 MG TAB PO SCH (08:52)
[2018-10-27] MEDS: PANTOPRAZOLE 40 MG/10 ML VIAL IVP SCH ×2 (08:53→21:10)
[2018-10-27] MEDS: METOPROLOL TARTRATE 25 MG TAB PO SCH ×2 (08:53→21:09)
--- NOTE | 2018-10-27 09:47 | PN ---
PROGRESS NOTE Mrs Cota went into atrial fibrillation last night, received a bolus of amiodarone. She is in sinus today. Apparently, she cannot be extubated. She is being considered for tracheostomy. She is now in sinus rhythm, hemodynamically stable with decent urine output. The JVD is 1 cm. S1, S2 are normal. A short systolic murmur noted. Lungs reveal fair air entry assisted by ventilator. The rest of physical exam unchanged. I am recommending that we will give oral amiodarone at a higher dose of 400 mg b.i.d., continue other medications and see how she does. For cardiac baker, her LV function is fairly well preserved. We will do a combination of amiodarone 400 mg b.i.d. and metoprolol and see how she does. MMODL / IJN: [id number] /
[2018-10-27] MEDS: MAG HYDROX/AL HYDROX/SIMETH 30 ML, LIDOCAINE VISCOUS 30 ML, NYSTATIN 100,000 UNIT/ML SU... PO SCH ×12 (09:48→21:29)
--- NOTE | 2018-10-27 09:57 | P.PN ---
Subjective Patient is seen in follow-up for acute kidney injury. Baseline creatinine is near 1. It peaked at 1.6 on this admission and is 1.36 today. She is off Cardizem drip and is now on oral amiodarone and Lopressor for A. fib. Patient went into hypercapnic respiratory failure and was subsequently intubated on October 19. Remains intubated. She is off vasopressors. Maintained on tube feeding. She is nonoliguric. Currently being treated for pneumonia. Vital signs are stable. General: The patient appeared well nourished and normally developed. HEENT: Head exam is unremarkable. Neck is without jugular venous distension. Intubated. LUNGS: Breath sounds decreased. HEART: Regular rate and rhythm. ABDOMEN: Abdominal exam reveals normal bowel sounds. Non-tender. EXTREMITITES: Trace edema. Objective - Vital Signs Vital signs: Vital Signs Temp 99 F 10/27/18 08:00 Pulse 104 H 10/27/18 09:00 Resp 21 10/27/18 09:00 BP 150/80 10/27/18 09:00 Pulse Ox 95 10/27/18 09:00 Intake & Output 10/26/18 10/27/18 10/27/18 18:59 06:59 18:59 Intake Total 4729.831 5350.231 229.632 Output Total 1260 1810 400 Balance 175.256 -657.769 -170.368 Weight 101.3 kg 101.9 kg Intake: IV 420 240 60 Piperacillin-Tazobactam 3 200 .375 gm In Sodium Chloride 0.9% 100 ml @ 25 mls/hr IVPB Q8H [facility] Rx#: [id number] Sodium Chloride 0.9% 1, 220 240 60 000 ml @ 20 mls/hr IV . Q24H [facility] Rx#:[id number] Intake, IV Titration 379.256 318.231 43.632 Amount Insulin Regular 100 unit 83.527 42.268 43.632 In Sodium Chloride 0.9% 100 ml @ Per Protocol IV .Q0M [facility] Rx#:[id number] Propofol 1,000 mg In 295.729 275.963 Empty Bag 1 bag @ Titrate IV .Q0M [facility] Rx#: [id number] Tube Feeding 546 504 126 Other 90 90 Output: Urine 1260 1510 400 Stool 300 Other: Voiding Method Indwelling Catheter Indwelling Catheter Indwelling Catheter - Labs CBC & Chem 7: 10/27/18 04:56 10/27/18 04:56 Labs: Abnormal Lab Results - Last 24 Hours (Table) 10/26/18 10/26/18 10/26/18 Range/Units 10:14 11:01 12:14 WBC (3.8-10.6) k/uL RBC (3.80-5.40) m/uL Hgb (11.4-16.0) gm/dL Hct (34.0-46.0) % MCHC (31.0-37.0) g/dL Plt Count (150-450) k/uL ABG pH (7.35-7.45) ABG pCO2 (35-45) mmHg ABG Total CO2 (19-24) mmol/L ABG O2 Saturation (94-97) % Chloride (98-107) mmol/L BUN (7-17) mg/dL Creatinine (0.52-1.04) mg/dL Glucose (74-99) mg/dL POC Glucose (mg/dL) 216 H 182 H 174 H (75-99) mg/dL Total Protein (6.3-8.2) g/dL Albumin (3.5-5.0) g/dL 10/26/18 10/26/18 10/26/18 Range/Units 13:18 14:27 15:17 WBC (3.8-10.6) k/uL RBC (3.80-5.40) m/uL Hgb (11.4-16.0) gm/dL Hct (34.0-46.0) % MCHC (31.0-37.0) g/dL Plt Count (150-450) k/uL ABG pH (7.35-7.45) ABG pCO2 (35-45) mmHg ABG Total CO2 (19-24) mmol/L ABG O2 Saturation (94-97) % Chloride (98-107) mmol/L BUN (7-17) mg/dL Creatinine (0.52-1.04) mg/dL Glucose (74-99) mg/dL POC Glucose (mg/dL) 165 H 186 H 165 H (75-99) mg/dL Total Protein (6.3-8.2) g/dL Albumin (3.5-5.0) g/dL 10/26/18 10/26/18 10/26/18 Range/Units 16:07 17:27 18:03 WBC (3.8-10.6) k/uL RBC (3.80-5.40) m/uL Hgb (11.4-16.0) gm/dL Hct (34.0-46.0) % MCHC (31.0-37.0) g/dL Plt Count (150-450) k/uL ABG pH (7.35-7.45) ABG pCO2 (35-45) mmHg ABG Total CO2 (19-24) mmol/L ABG O2 Saturation (94-97) % Chloride (98-107) mmol/L BUN (7-17) mg/dL Creatinine (0.52-1.04) mg/dL Glucose (74-99) mg/dL POC Glucose (mg/dL) 179 H 177 H 188 H (75-99) mg/dL Total Protein (6.3-8.2) g/dL Albumin (3.5-5.0) g/dL 10/26/18 10/26/18 10/26/18 Range/Units 18:53 19:48 20:57 WBC (3.8-10.6) k/uL RBC (3.80-5.40) m/uL Hgb (11.4-16.0) gm/dL Hct (34.0-46.0) % MCHC (31.0-37.0) g/dL Plt Count (150-450) k/uL ABG pH (7.35-7.45) ABG pCO2 (35-45) mmHg ABG Total CO2 (19-24) mmol/L ABG O2 Saturation (94-97) % Chloride (98-107) mmol/L BUN (7-17) mg/dL Creatinine (0.52-1.04) mg/dL Glucose (74-99) mg/dL POC Glucose (mg/dL) 208 H 147 H 165 H (75-99) mg/dL Total Protein (6.3-8.2) g/dL Albumin (3.5-5.0) g/dL 10/26/18 10/26/18 10/27/18 Range/Units 22:03 23:04 00:03 WBC (3.8-10.6) k/uL RBC (3.80-5.40) m/uL Hgb (11.4-16.0) gm/dL Hct (34.0-46.0) % MCHC (31.0-37.0) g/dL Plt Count (150-450) k/uL ABG pH (7.35-7.45) ABG pCO2 (35-45) mmHg ABG Total CO2 (19-24) mmol/L ABG O2 Saturation (94-97) % Chloride (98-107) mmol/L BUN (7-17) mg/dL Creatinine (0.52-1.04) mg/dL Glucose (74-99) mg/dL POC Glucose (mg/dL) 170 H 162 H 180 H (75-99) mg/dL Total Protein (6.3-8.2) g/dL Albumin (3.5-5.0) g/dL 10/27/18 10/27/18 10/27/18 Range/Units 01:09 02:58 04:56 WBC (3.8-10.6) k/uL RBC (3.80-5.40) m/uL Hgb (11.4-16.0) gm/dL Hct (34.0-46.0) % MCHC (31.0-37.0) g/dL Plt Count (150-450) k/uL ABG pH (7.35-7.45) ABG pCO2 (35-45) mmHg ABG Total CO2 (19-24) mmol/L ABG O2 Saturation (94-97) % Chloride 114 H (98-107) mmol/L BUN 64 H (7-17) mg/dL Creatinine 1.36 H (0.52-1.04) mg/dL Glucose 158 H (74-99) mg/dL POC Glucose (mg/dL) 163 H 153 H (75-99) mg/dL Total Protein 5.0 L (6.3-8.2) g/dL Albumin 2.6 L (3.5-5.0) g/dL 10/27/18 10/27/18 10/27/18 Range/Units 04:56 05:03 05:04 WBC 13.2 H (3.8-10.6) k/uL RBC 3.36 L (3.80-5.40) m/uL Hgb 9.4 L (11.4-16.0) gm/dL Hct 31.1 L (34.0-46.0) % MCHC 30.1 L (31.0-37.0) g/dL Plt Count 667 H (150-450) k/uL ABG pH 7.34 L (7.35-7.45) ABG pCO2 47 H (35-45) mmHg ABG Total CO2 27 H (19-24) mmol/L ABG O2 Saturation 97.3 H (94-97) % Chloride (98-107) mmol/L BUN (7-17) mg/dL Creatinine (0.52-1.04) mg/dL Glucose (74-99) mg/dL POC Glucose (mg/dL) 154 H (75-99) mg/dL Total Protein (6.3-8.2) g/dL Albumin (3.5-5.0) g/dL 10/27/18 10/27/18 Range/Units 06:59 07:59 WBC (3.8-10.6) k/uL RBC (3.80-5.40) m/uL Hgb (11.4-16.0) gm/dL Hct (34.0-46.0) % MCHC (31.0-37.0) g/dL Plt Count (150-450) k/uL ABG pH (7.35-7.45) ABG pCO2 (35-45) mmHg ABG Total CO2 (19-24) mmol/L ABG O2 Saturation (94-97) % Chloride (98-107) mmol/L BUN (7-17) mg/dL Creatinine (0.52-1.04) mg/dL Glucose (74-99) mg/dL POC Glucose (mg/dL) 161 H 169 H (75-99) mg/dL Total Protein (6.3-8.2) g/dL Albumin (3.5-5.0) g/dL Assessment and Plan Plan: Assessment: 1. Acute kidney injury secondary to ATN secondary to hemodynamic instability, contrast-induced nephropathy and sepsis. Baseline creatinine 1. Creatinine peaked at 1.6 on this admission and is 1.36 today. Trace proteinuria noted on UA. 2. Mild volume overload. Better. Status post IV Lasix October 25. 3. Septic shock secondary to pneumonia maintained on antibiotics. Currently off Levophed. Sputum culture positive for Aminta. 4. A. fib with RVR maintained on oral amiodarone and Lopressor. Also on anticoagulation. Cardiology following. 5. Insulin-dependent diabetes mellitus. 6. Acute hypercapnic respiratory failure. 7. Metabolic acidosis secondary to acute kidney injury. Better. Plan: Maintain tube feeding. Remains off IV fluids. Avoid nephrotoxins. Discontinued Toradol. Continue to monitor renal function and urine output. Wean FiO2. No changes from nephrology standpoint.
[2018-10-27 10:03] LABS: Glucose,Whole Blood 175 mg/dL (75-99)
[2018-10-27 11:08] LABS: Glucose,Whole Blood 178 mg/dL (75-99)
--- NOTE | 2018-10-27 11:11 | PN ---
PROGRESS NOTE DATE OF SERVICE: 10/27/2018 CRITICAL CARE TIME: 33 minutes. This is a 58-year-old female who was admitted back on October 14 with an episode of sepsis and pneumonia. On the , she developed acute hypoxemic respiratory failure and was intubated and mechanically ventilated. She had a bronchoscopy performed by my partner on October 21. The patient has really not made much progress. She remains on the mechanical ventilator. She was determined to best be suited for this VC+ plus mode or pressure regulated volume control. She is getting a targeted tidal volume 350 mL, an inspiratory time of 1 second, respiratory rate 24, FiO2 of 50%, PEEP of 12. Blood gases show pO2 of 102, pCO2 of 47, pH 7.34. The patient is getting saline at 20 mL an hour, propofol at 40 mcg/kg per minute, insulin 6 units an hour and Vital high-protein at 42 with a goal of 42. I am sure the Vital high-protein will be placed on hold tomorrow when she gets her tracheostomy and PEG tube placement. That is scheduled for October 28. She also did develop some atrial fibrillation with RVR. The amiodarone was increased by Cardiology. She will need an art line today and a PICC line today. After evaluating her, we found her to be a bit dyssynchronous with the ventilator and we did bump up the vent rate to 30 breaths per minute. In addition to all this, she has a history of diabetes mellitus, COPD, right-sided pleural effusion as well as atrial fibrillation. PHYSICAL EXAMINATION: VITAL SIGNS: Current vital signs are reviewed. Temperature is 99, heart rate 104, respiratory rate 30, blood pressure 150/80, mean 103 and saturations are 95%. Appears in no acute distress. A bit dyssynchronous or asynchronous with the ventilator. HEENT: Examination is grossly unremarkable. There is an orally placed endotracheal tube. NECK: Supple. Full range of motion. No adenopathy or thyromegaly. Neck veins are flat. CARDIOVASCULAR: Examination reveals a regular rhythm and rate. Heart rate about 100 beats per minute. S1, S2 normal. LUNGS: Reveal a few scattered coarse rhonchi. Breath sounds are equal bilaterally. A few scattered crackles are appreciated. No wheezes. ABDOMEN: Soft. Bowel sounds are noted. No masses or tenderness. EXTREMITIES: Are intact. Minimal edema. SKIN: Without rash. NEUROLOGIC: Examination could not be adequately assessed as the patient is currently heavily sedated. LAB DATA: Lab data is reviewed. White count 13.2, hemoglobin 9.4, hematocrit 31.1, platelet count 667,000. Blood gas shows a pO2 of 102, pCO2 of 47 pH 7.34. Sodium 144, potassium 4.9, chloride 114, CO2 is 25. Anion gap is 5. BUN 64, creatinine 1.36. Albumin 2.6. Microbiologic studies are only showing Aminta albicans in the bronch washings and the sputum. IMAGING: Chest x-ray shows a properly placed endotracheal tube. There appears to be some right lower lobe pneumonic changes. MEDICATIONS: Medications are reviewed. The patient currently is on Zosyn for pneumonia. ASSESSMENT: 1. Acute hypoxemic and hypercapnic respiratory failure secondary to bilateral pneumonia, right greater than left, requiring intubation and mechanical ventilation on October 19, and bronchoscopy on 21 of October. 2. Failure to wean from mechanical ventilation. 3. Sepsis and pneumonia. 4. Hypotension, secondary to sepsis, improved. 5. Type 2 diabetes mellitus. 6. History of chronic obstructive pulmonary disease/asthma. 7. History of acute hypoxemic respiratory failure. 8. Right-sided pleural effusion. 9. Multiple other medical problems and comorbidities. PLAN: Currently, the patient is doing relatively well. She is currently on propofol for sedation. She is getting insulin for glycemic control and tube feeds with Vital high- protein at 42 at goal. The patient did have an episode of atrial fibrillation with RVR. Cardiology was notified and amiodarone was increased. She is scheduled for tracheostomy and PEG tube tomorrow. The patient will have an art line placed by one of the nurse practitioners today. I will supervise. We will also ask for PICC line today. No additional recommendations are made. Prognosis is currently very guarded. CRITICAL CARE TIME: 33 minutes. MMODL / IJN: [id number] /
--- NOTE | 2018-10-27 11:14 | P.PN ---
<Danuta Anne Celeste - Last Filed: 10/27/18 11:13> Subjective Progress Note Date: 10/27/18 CHIEF COMPLAINT: Trach and PEG placement HISTORY OF PRESENT ILLNESS: 58-year-old female who is admitted to the hospital secondary to bilateral pneumonia. Patient remains on mechanical ventilation. She is tolerating tube feeds. PHYSICAL EXAM: VITAL SIGNS: Reviewed. GENERAL: Well-developed in no acute distress sedated on mechanical ventilator. HEENT: ET tube. OG tube with tube feeding infusing. No sclera icterus. Extraocular movements grossly intact. Moist buccal mucosa. Head is atraumatic, normocephalic. ABDOMEN: Soft. Nondistended. Positive bowel sounds. NEUROLOGIC: Sedated on mechanical ventilation ASSESSMENT: 1. Acute hypoxic respiratory failure secondary to bilateral pneumonia requiring mechanical ventilation PLAN: Hold Eliquis. Trach/PEG tomorrow with Dr. Fung Nurse practitioner note has been reviewed by physician. Signing provider agrees with the documented findings, assessment, and plan of care. Objective - Vital Signs Vital signs: Vital Signs Temp 99 F 10/27/18 08:00 Pulse 75 10/27/18 11:00 Resp 30 H 10/27/18 11:00 BP 108/53 10/27/18 11:00 Pulse Ox 95 10/27/18 11:00 Intake & Output 10/26/18 10/27/18 10/27/18 18:59 06:59 18:59 Intake Total 6914.558 4886.231 291.632 Output Total 1260 1810 475 Balance 175.256 -657.769 -183.368 Weight 101.3 kg 101.9 kg Intake: IV 420 240 80 Piperacillin-Tazobactam 3 200 .375 gm In Sodium Chloride 0.9% 100 ml @ 25 mls/hr IVPB Q8H [facility] Rx#: [id number] Sodium Chloride 0.9% 1, 220 240 80 000 ml @ 20 mls/hr IV . Q24H [facility] Rx#:[id number] Intake, IV Titration 379.256 318.231 43.632 Amount Insulin Regular 100 unit 83.527 42.268 43.632 In Sodium Chloride 0.9% 100 ml @ Per Protocol IV .Q0M [facility] Rx#:[id number] Propofol 1,000 mg In 295.729 275.963 Empty Bag 1 bag @ Titrate IV .Q0M [facility] Rx#: [id number] Tube Feeding 546 504 168 Other 90 90 Output: Urine 1260 1510 475 Stool 300 Other: Voiding Method Indwelling Catheter Indwelling Catheter Indwelling Catheter ABP, PAP, CO, CI - Last Documented Arterial Blood Pressure 92/51 - Labs CBC & Chem 7: 10/27/18 04:56 10/27/18 04:56 Labs: Abnormal Lab Results - Last 24 Hours (Table) 10/26/18 10/26/18 10/26/18 Range/Units 11:01 12:14 13:18 WBC (3.8-10.6) k/uL RBC (3.80-5.40) m/uL Hgb (11.4-16.0) gm/dL Hct (34.0-46.0) % MCHC (31.0-37.0) g/dL Plt Count (150-450) k/uL ABG pH (7.35-7.45) ABG pCO2 (35-45) mmHg ABG Total CO2 (19-24) mmol/L ABG O2 Saturation (94-97) % Chloride (98-107) mmol/L BUN (7-17) mg/dL Creatinine (0.52-1.04) mg/dL Glucose (74-99) mg/dL POC Glucose (mg/dL) 182 H 174 H 165 H (75-99) mg/dL Total Protein (6.3-8.2) g/dL Albumin (3.5-5.0) g/dL 10/26/18 10/26/18 10/26/18 Range/Units 14:27 15:17 16:07 WBC (3.8-10.6) k/uL RBC (3.80-5.40) m/uL Hgb (11.4-16.0) gm/dL Hct (34.0-46.0) % MCHC (31.0-37.0) g/dL Plt Count (150-450) k/uL ABG pH (7.35-7.45) ABG pCO2 (35-45) mmHg ABG Total CO2 (19-24) mmol/L ABG O2 Saturation (94-97) % Chloride (98-107) mmol/L BUN (7-17) mg/dL Creatinine (0.52-1.04) mg/dL Glucose (74-99) mg/dL POC Glucose (mg/dL) 186 H 165 H 179 H (75-99) mg/dL Total Protein (6.3-8.2) g/dL Albumin (3.5-5.0) g/dL 10/26/18 10/26/18 10/26/18 Range/Units 17:27 18:03 18:53 WBC (3.8-10.6) k/uL RBC (3.80-5.40) m/uL Hgb (11.4-16.0) gm/dL Hct (34.0-46.0) % MCHC (31.0-37.0) g/dL Plt Count (150-450) k/uL ABG pH (7.35-7.45) ABG pCO2 (35-45) mmHg ABG Total CO2 (19-24) mmol/L ABG O2 Saturation (94-97) % Chloride (98-107) mmol/L BUN (7-17) mg/dL Creatinine (0.52-1.04) mg/dL Glucose (74-99) mg/dL POC Glucose (mg/dL) 177 H 188 H 208 H (75-99) mg/dL Total Protein (6.3-8.2) g/dL Albumin (3.5-5.0) g/dL 10/26/18 10/26/18 10/26/18 Range/Units 19:48 20:57 22:03 WBC (3.8-10.6) k/uL RBC (3.80-5.40) m/uL Hgb (11.4-16.0) gm/dL Hct (34.0-46.0) % MCHC (31.0-37.0) g/dL Plt Count (150-450) k/uL ABG pH (7.35-7.45) ABG pCO2 (35-45) mmHg ABG Total CO2 (19-24) mmol/L ABG O2 Saturation (94-97) % Chloride (98-107) mmol/L BUN (7-17) mg/dL Creatinine (0.52-1.04) mg/dL Glucose (74-99) mg/dL POC Glucose (mg/dL) 147 H 165 H 170 H (75-99) mg/dL Total Protein (6.3-8.2) g/dL Albumin (3.5-5.0) g/dL 10/26/18 10/27/18 10/27/18 Range/Units 23:04 00:03 01:09 WBC (3.8-10.6) k/uL RBC (3.80-5.40) m/uL Hgb (11.4-16.0) gm/dL Hct (34.0-46.0) % MCHC (31.0-37.0) g/dL Plt Count (150-450) k/uL ABG pH (7.35-7.45) ABG pCO2 (35-45) mmHg ABG Total CO2 (19-24) mmol/L ABG O2 Saturation (94-97) % Chloride (98-107) mmol/L BUN (7-17) mg/dL Creatinine (0.52-1.04) mg/dL Glucose (74-99) mg/dL POC Glucose (mg/dL) 162 H 180 H 163 H (75-99) mg/dL Total Protein (6.3-8.2) g/dL Albumin (3.5-5.0) g/dL 10/27/18 10/27/18 10/27/18 Range/Units 02:58 04:56 04:56 WBC 13.2 H (3.8-10.6) k/uL RBC 3.36 L (3.80-5.40) m/uL Hgb 9.4 L (11.4-16.0) gm/dL Hct 31.1 L (34.0-46.0) % MCHC 30.1 L (31.0-37.0) g/dL Plt Count 667 H (150-450) k/uL ABG pH (7.35-7.45) ABG pCO2 (35-45) mmHg ABG Total CO2 (19-24) mmol/L ABG O2 Saturation (94-97) % Chloride 114 H (98-107) mmol/L BUN 64 H (7-17) mg/dL Creatinine 1.36 H (0.52-1.04) mg/dL Glucose 158 H (74-99) mg/dL POC Glucose (mg/dL) 153 H (75-99) mg/dL Total Protein 5.0 L (6.3-8.2) g/dL Albumin 2.6 L (3.5-5.0) g/dL 10/27/18 10/27/18 10/27/18 Range/Units 05:03 05:04 06:59 WBC (3.8-10.6) k/uL RBC (3.80-5.40) m/uL Hgb (11.4-16.0) gm/dL Hct (34.0-46.0) % MCHC (31.0-37.0) g/dL Plt Count (150-450) k/uL ABG pH 7.34 L (7.35-7.45) ABG pCO2 47 H (35-45) mmHg ABG Total CO2 27 H (19-24) mmol/L ABG O2 Saturation 97.3 H (94-97) % Chloride (98-107) mmol/L BUN (7-17) mg/dL Creatinine (0.52-1.04) mg/dL Glucose (74-99) mg/dL POC Glucose (mg/dL) 154 H 161 H (75-99) mg/dL Total Protein (6.3-8.2) g/dL Albumin (3.5-5.0) g/dL 10/27/18 10/27/18 10/27/18 Range/Units 07:59 10:00 11:06 WBC (3.8-10.6) k/uL RBC (3.80-5.40) m/uL Hgb (11.4-16.0) gm/dL Hct (34.0-46.0) % MCHC (31.0-37.0) g/dL Plt Count (150-450) k/uL ABG pH (7.35-7.45) ABG pCO2 (35-45) mmHg ABG Total CO2 (19-24) mmol/L ABG O2 Saturation (94-97) % Chloride (98-107) mmol/L BUN (7-17) mg/dL Creatinine (0.52-1.04) mg/dL Glucose (74-99) mg/dL POC Glucose (mg/dL) 169 H 175 H 178 H (75-99) mg/dL Total Protein (6.3-8.2) g/dL Albumin (3.5-5.0) g/dL <Jan Fung - Last Filed: 10/27/18 15:28> Subjective As above. Patient remains on ventilator. No significant ventilatory changes. Proceed with tracheostomy and PEG tube placement tomorrow. Objective - Vital Signs Vital signs: Vital Signs Temp 99.2 F 10/27/18 12:00 Pulse 92 10/27/18 14:00 Resp 30 H 10/27/18 14:00 BP 134/74 10/27/18 14:00 Pulse Ox 95 10/27/18 14:00 Intake & Output 10/26/18 10/27/18 10/27/18 18:59 06:59 18:59 Intake Total 8173.242 4873.231 739.986 Output Total 1260 1810 915 Balance 175.256 -657.769 -175.014 Weight 101.3 kg 101.9 kg Intake: IV 420 240 160 Piperacillin-Tazobactam 3 200 .375 gm In Sodium Chloride 0.9% 100 ml @ 25 mls/hr IVPB Q8H [facility] Rx#: [id number] Sodium Chloride 0.9% 1, 220 240 160 000 ml @ 20 mls/hr IV . Q24H [facility] Rx#:[id number] Intake, IV Titration 379.256 318.231 225.986 Amount Insulin Regular 100 unit 83.527 42.268 81.558 In Sodium Chloride 0.9% 100 ml @ Per Protocol IV .Q0M [facility] Rx#:[id number] Propofol 1,000 mg In 295.729 275.963 144.428 Empty Bag 1 bag @ Titrate IV .Q0M [facility] Rx#: [id number] Tube Feeding 546 504 294 Other 90 90 60 Output: Urine 1260 1510 915 Stool 300 Other: Voiding Method Indwelling Catheter Indwelling Catheter Indwelling Catheter ABP, PAP, CO, CI - Last Documented Arterial Blood Pressure 145/75 - Labs CBC & Chem 7: 10/27/18 04:56 10/27/18 04:56 Labs: Abnormal Lab Results - Last 24 Hours (Table) 10/26/18 10/26/18 10/26/18 Range/Units 15:17 16:07 17:27 WBC (3.8-10.6) k/uL RBC (3.80-5.40) m/uL Hgb (11.4-16.0) gm/dL Hct (34.0-46.0) % MCHC (31.0-37.0) g/dL Plt Count (150-450) k/uL ABG pH (7.35-7.45) ABG pCO2 (35-45) mmHg ABG Total CO2 (19-24) mmol/L ABG O2 Saturation (94-97) % Chloride (98-107) mmol/L BUN (7-17) mg/dL Creatinine (0.52-1.04) mg/dL Glucose (74-99) mg/dL POC Glucose (mg/dL) 165 H 179 H 177 H (75-99) mg/dL Total Protein (6.3-8.2) g/dL Albumin (3.5-5.0) g/dL 10/26/18 10/26/18 10/26/18 Range/Units 18:03 18:53 19:48 WBC (3.8-10.6) k/uL RBC (3.80-5.40) m/uL Hgb (11.4-16.0) gm/dL Hct (34.0-46.0) % MCHC (31.0-37.0) g/dL Plt Count (150-450) k/uL ABG pH (7.35-7.45) ABG pCO2 (35-45) mmHg ABG Total CO2 (19-24) mmol/L ABG O2 Saturation (94-97) % Chloride (98-107) mmol/L BUN (7-17) mg/dL Creatinine (0.52-1.04) mg/dL Glucose (74-99) mg/dL POC Glucose (mg/dL) 188 H 208 H 147 H (75-99) mg/dL Total Protein (6.3-8.2) g/dL Albumin (3.5-5.0) g/dL 10/26/18 10/26/18 10/26/18 Range/Units 20:57 22:03 23:04 WBC (3.8-10.6) k/uL RBC (3.80-5.40) m/uL Hgb (11.4-16.0) gm/dL Hct (34.0-46.0) % MCHC (31.0-37.0) g/dL Plt Count (150-450) k/uL ABG pH (7.35-7.45) ABG pCO2 (35-45) mmHg ABG Total CO2 (19-24) mmol/L ABG O2 Saturation (94-97) % Chloride (98-107) mmol/L BUN (7-17) mg/dL Creatinine (0.52-1.04) mg/dL Glucose (74-99) mg/dL POC Glucose (mg/dL) 165 H 170 H 162 H (75-99) mg/dL Total Protein (6.3-8.2) g/dL Albumin (3.5-5.0) g/dL 10/27/18 10/27/18 10/27/18 Range/Units 00:03 01:09 02:58 WBC (3.8-10.6) k/uL RBC (3.80-5.40) m/uL Hgb (11.4-16.0) gm/dL Hct (34.0-46.0) % MCHC (31.0-37.0) g/dL Plt Count (150-450) k/uL ABG pH (7.35-7.45) ABG pCO2 (35-45) mmHg ABG Total CO2 (19-24) mmol/L ABG O2 Saturation (94-97) % Chloride (98-107) mmol/L BUN (7-17) mg/dL Creatinine (0.52-1.04) mg/dL Glucose (74-99) mg/dL POC Glucose (mg/dL) 180 H 163 H 153 H (75-99) mg/dL Total Protein (6.3-8.2) g/dL Albumin (3.5-5.0) g/dL 10/27/18 10/27/18 10/27/18 Range/Units 04:56 04:56 05:03 WBC 13.2 H (3.8-10.6) k/uL RBC 3.36 L (3.80-5.40) m/uL Hgb 9.4 L (11.4-16.0) gm/dL Hct 31.1 L (34.0-46.0) % MCHC 30.1 L (31.0-37.0) g/dL Plt Count 667 H (150-450) k/uL ABG pH 7.34 L (7.35-7.45) ABG pCO2 47 H (35-45) mmHg ABG Total CO2 27 H (19-24) mmol/L ABG O2 Saturation 97.3 H (94-97) % Chloride 114 H (98-107) mmol/L BUN 64 H (7-17) mg/dL Creatinine 1.36 H (0.52-1.04) mg/dL Glucose 158 H (74-99) mg/dL POC Glucose (mg/dL) (75-99) mg/dL Total Protein 5.0 L (6.3-8.2) g/dL Albumin 2.6 L (3.5-5.0) g/dL 10/27/18 10/27/18 10/27/18 Range/Units 05:04 06:59 07:59 WBC (3.8-10.6) k/uL RBC (3.80-5.40) m/uL Hgb (11.4-16.0) gm/dL Hct (34.0-46.0) % MCHC (31.0-37.0) g/dL Plt Count (150-450) k/uL ABG pH (7.35-7.45) ABG pCO2 (35-45) mmHg ABG Total CO2 (19-24) mmol/L ABG O2 Saturation (94-97) % Chloride (98-107) mmol/L BUN (7-17) mg/dL Creatinine (0.52-1.04) mg/dL Glucose (74-99) mg/dL POC Glucose (mg/dL) 154 H 161 H 169 H (75-99) mg/dL Total Protein (6.3-8.2) g/dL Albumin (3.5-5.0) g/dL 10/27/18 10/27/18 10/27/18 Range/Units 10:00 11:06 11:53 WBC (3.8-10.6) k/uL RBC (3.80-5.40) m/uL Hgb (11.4-16.0) gm/dL Hct (34.0-46.0) % MCHC (31.0-37.0) g/dL Plt Count (150-450) k/uL ABG pH (7.35-7.45) ABG pCO2 (35-45) mmHg ABG Total CO2 (19-24) mmol/L ABG O2 Saturation (94-97) % Chloride (98-107) mmol/L BUN (7-17) mg/dL Creatinine (0.52-1.04) mg/dL Glucose (74-99) mg/dL POC Glucose (mg/dL) 175 H 178 H 160 H (75-99) mg/dL Total Protein (6.3-8.2) g/dL Albumin (3.5-5.0) g/dL 10/27/18 10/27/18 10/27/18 Range/Units 13:02 13:14 13:58 WBC (3.8-10.6) k/uL RBC (3.80-5.40) m/uL Hgb (11.4-16.0) gm/dL Hct (34.0-46.0) % MCHC (31.0-37.0) g/dL Plt Count (150-450) k/uL ABG pH (7.35-7.45) ABG pCO2 (35-45) mmHg ABG Total CO2 (19-24) mmol/L ABG O2 Saturation (94-97) % Chloride (98-107) mmol/L BUN (7-17) mg/dL Creatinine (0.52-1.04) mg/dL Glucose (74-99) mg/dL POC Glucose (mg/dL) 170 H 159 H 160 H (75-99) mg/dL Total Protein (6.3-8.2) g/dL Albumin (3.5-5.0) g/dL 10/27/18 Range/Units 14:59 WBC (3.8-10.6) k/uL RBC (3.80-5.40) m/uL Hgb (11.4-16.0) gm/dL Hct (34.0-46.0) % MCHC (31.0-37.0) g/dL Plt Count (150-450) k/uL ABG pH (7.35-7.45) ABG pCO2 (35-45) mmHg ABG Total CO2 (19-24) mmol/L ABG O2 Saturation (94-97) % Chloride (98-107) mmol/L BUN (7-17) mg/dL Creatinine (0.52-1.04) mg/dL Glucose (74-99) mg/dL POC Glucose (mg/dL) 140 H (75-99) mg/dL Total Protein (6.3-8.2) g/dL Albumin (3.5-5.0) g/dL
[2018-10-27 11:54] LABS: Glucose,Whole Blood 160 mg/dL (75-99)
[2018-10-27 13:04] LABS: Glucose,Whole Blood 170 mg/dL (75-99)
[2018-10-27 13:16] LABS: Glucose,Whole Blood 159 mg/dL (75-99)
[2018-10-27 14:10] LABS: Glucose,Whole Blood 160 mg/dL (75-99)
[2018-10-27 15:00] LABS: Glucose,Whole Blood 140 mg/dL (75-99)
[2018-10-27 16:14] LABS: Glucose,Whole Blood 169 mg/dL (75-99)
[2018-10-27 17:14] LABS: Glucose,Whole Blood 135 mg/dL (75-99)
[2018-10-27 17:58] LABS: Glucose,Whole Blood 150 mg/dL (75-99)
[2018-10-27 19:04] LABS: Glucose,Whole Blood 140 mg/dL (75-99)
[2018-10-27 20:12] LABS: Glucose,Whole Blood 135 mg/dL (75-99)
[2018-10-27] MEDS: ATORVASTATIN 40 MG TAB PO SCH (21:09)
[2018-10-27 21:10] LABS: Glucose,Whole Blood 135 mg/dL (75-99)
[2018-10-27] MEDS: SERTRALINE 50 MG TAB PO SCH (21:10)
[2018-10-27] MEDS: MONTELUKAST 10 MG TAB PO SCH (21:10)
[2018-10-27] MEDS: SODIUM CHLORIDE 0.9% 1,000 ML IV SCH (21:25)
[2018-10-27 22:00] LABS: Glucose,Whole Blood 147 mg/dL (75-99)
[2018-10-27 23:01] LABS: Glucose,Whole Blood 149 mg/dL (75-99)
[2018-10-28 00:28] LABS: Glucose,Whole Blood 165 mg/dL (75-99)
[2018-10-28] MEDS: INSULIN REGULAR 100 UNIT in SODIUM CHLORIDE 0.9% 100 ML IV SCH ×2 (00:29→22:14)
[2018-10-28 01:02] LABS: Glucose,Whole Blood 159 mg/dL (75-99)
--- NOTE | 2018-10-28 01:40 | P.PN ---
Subjective Progress Note Date: 10/27/18 Principal diagnosis: Sepsis secondary to pneumonia Septic shock Celeste meza is a 58-year-old female known history of asthma, diabetes type 2, hypertension and hyperlipidemia was admitted to the hospital with the complaints of shortness of breath, cough with yellow sputum production 4 days. Patient was lethargic and weak and was confused and she came to the hospital. Patient is being treated for sepsis/septic shock secondary to pneumonia and went into respiratory failure. Currently patient in the MICU. Patient went into atrial fibrillation and was given a dose of Cardizem and converted back to sinus rhythm. 10/25/2018 Patient is currently on mechanical ventilator. Assist control with PEEP of 12, FiO2 50%. Patient went into atrial fibrillation last night and was given amiodarone bolus. Currently on oral amiodarone. Anticoagulation with Eliquis. Being continued on antibiotics the form of Zosyn. Sputum Cultures growing Aminta. Patient is off pressor support. WBC 12.4 and 1.29. Patient has been afebrile otherwise. 10/26/2018 Currently is on mechanical ventilator. Patient is otherwise converted to sinus rhythm. On oral amiodarone now. Patient is being continued on antibiotics in the form of Zosyn. WBC 11.0 patient has been afebrile otherwise. Currently on tube feeding and chest x-ray showed correlate for pneumonia and CHF not excluded. Patient was given a dose of IV Lasix today. Creatinine level is 1.49. Pulmonary, nephrology and cardiology and ID is following. 10/27/2018 Patient is currently on mechanical ventilator. Continued on antibiotics. Maintaining sinus rhythm. Eliquis is on hold. General surgery is planning for PEG tube placement tomorrow. Chest x-ray showed correlate for pneumonia. WBC 13.2 and creatinine level slightly improved to 1.39 Current medications reviewed. Objective - Vital Signs Vital signs: Vital Signs Temp 98.7 F 10/27/18 16:00 Pulse 77 10/27/18 17:00 Resp 30 H 10/27/18 17:00 BP 145/72 10/27/18 16:00 Pulse Ox 92 L 10/27/18 17:00 Intake & Output 10/26/18 10/27/18 10/27/18 18:59 06:59 18:59 Intake Total 5937.866 9267.231 931.625 Output Total 1260 1810 1440 Balance 175.256 -657.769 -508.375 Weight 101.3 kg 101.9 kg Intake: IV 420 240 220 Piperacillin-Tazobactam 3 200 .375 gm In Sodium Chloride 0.9% 100 ml @ 25 mls/hr IVPB Q8H [facility] Rx#: [id number] Sodium Chloride 0.9% 1, 220 240 220 000 ml @ 20 mls/hr IV . Q24H [facility] Rx#:[id number] Intake, IV Titration 379.256 318.231 231.625 Amount Insulin Regular 100 unit 83.527 42.268 87.197 In Sodium Chloride 0.9% 100 ml @ Per Protocol IV .Q0M [facility] Rx#:[id number] Propofol 1,000 mg In 295.729 275.963 144.428 Empty Bag 1 bag @ Titrate IV .Q0M [facility] Rx#: [id number] Tube Feeding 546 504 420 Other 90 90 60 Output: Urine 1260 1510 1440 Stool 300 Other: Voiding Method Indwelling Catheter Indwelling Catheter Indwelling Catheter # Voids 1 ABP, PAP, CO, CI - Last Documented Arterial Blood Pressure 103/57 - Exam PHYSICAL EXAMINATION: Patient Is currently sedated and intubated... HEENT: Normocephalic. Neck is supple. Pupils reactive. Nostrils clear. Oral cavity is moist. Ears reveal no drainage. Neck reveals no JVD, carotid bruits, or thyromegaly. CHEST EXAMINATION: Endotracheal tube in place. Trachea is central. Symmetrical expansion. Bibasilar diminished air entry.. CARDIAC: Normal S1, S2 with no gallops. No murmurs ABDOMEN: Soft. Bowel sounds normal. No organomegaly. No abdominal bruits. Fecal collection tube and Alvarez catheter in place. Extremities: reveal no edema. No clubbing or cyanosis Neurologically .patient currently sedated. No gross neurological deficit. Skin: No rash or skin lesions. Psychiatric: Could not be assessed Musculoskeletal: No joint swelling or deformity. - Labs CBC & Chem 7: 10/27/18 04:56 10/27/18 04:56 Labs: Abnormal Lab Results - Last 24 Hours (Table) 10/26/18 10/26/18 10/26/18 Range/Units 18:03 18:53 19:48 WBC (3.8-10.6) k/uL RBC (3.80-5.40) m/uL Hgb (11.4-16.0) gm/dL Hct (34.0-46.0) % MCHC (31.0-37.0) g/dL Plt Count (150-450) k/uL ABG pH (7.35-7.45) ABG pCO2 (35-45) mmHg ABG Total CO2 (19-24) mmol/L ABG O2 Saturation (94-97) % Chloride (98-107) mmol/L BUN (7-17) mg/dL Creatinine (0.52-1.04) mg/dL Glucose (74-99) mg/dL POC Glucose (mg/dL) 188 H 208 H 147 H (75-99) mg/dL Total Protein (6.3-8.2) g/dL Albumin (3.5-5.0) g/dL 10/26/18 10/26/18 10/26/18 Range/Units 20:57 22:03 23:04 WBC (3.8-10.6) k/uL RBC (3.80-5.40) m/uL Hgb (11.4-16.0) gm/dL Hct (34.0-46.0) % MCHC (31.0-37.0) g/dL Plt Count (150-450) k/uL ABG pH (7.35-7.45) ABG pCO2 (35-45) mmHg ABG Total CO2 (19-24) mmol/L ABG O2 Saturation (94-97) % Chloride (98-107) mmol/L BUN (7-17) mg/dL Creatinine (0.52-1.04) mg/dL Glucose (74-99) mg/dL POC Glucose (mg/dL) 165 H 170 H 162 H (75-99) mg/dL Total Protein (6.3-8.2) g/dL Albumin (3.5-5.0) g/dL 10/27/18 10/27/18 10/27/18 Range/Units 00:03 01:09 02:58 WBC (3.8-10.6) k/uL RBC (3.80-5.40) m/uL Hgb (11.4-16.0) gm/dL Hct (34.0-46.0) % MCHC (31.0-37.0) g/dL Plt Count (150-450) k/uL ABG pH (7.35-7.45) ABG pCO2 (35-45) mmHg ABG Total CO2 (19-24) mmol/L ABG O2 Saturation (94-97) % Chloride (98-107) mmol/L BUN (7-17) mg/dL Creatinine (0.52-1.04) mg/dL Glucose (74-99) mg/dL POC Glucose (mg/dL) 180 H 163 H 153 H (75-99) mg/dL Total Protein (6.3-8.2) g/dL Albumin (3.5-5.0) g/dL 10/27/18 10/27/18 10/27/18 Range/Units 04:56 04:56 05:03 WBC 13.2 H (3.8-10.6) k/uL RBC 3.36 L (3.80-5.40) m/uL Hgb 9.4 L (11.4-16.0) gm/dL Hct 31.1 L (34.0-46.0) % MCHC 30.1 L (31.0-37.0) g/dL Plt Count 667 H (150-450) k/uL ABG pH 7.34 L (7.35-7.45) ABG pCO2 47 H (35-45) mmHg ABG Total CO2 27 H (19-24) mmol/L ABG O2 Saturation 97.3 H (94-97) % Chloride 114 H (98-107) mmol/L BUN 64 H (7-17) mg/dL Creatinine 1.36 H (0.52-1.04) mg/dL Glucose 158 H (74-99) mg/dL POC Glucose (mg/dL) (75-99) mg/dL Total Protein 5.0 L (6.3-8.2) g/dL Albumin 2.6 L (3.5-5.0) g/dL 10/27/18 10/27/18 10/27/18 Range/Units 05:04 06:59 07:59 WBC (3.8-10.6) k/uL RBC (3.80-5.40) m/uL Hgb (11.4-16.0) gm/dL Hct (34.0-46.0) % MCHC (31.0-37.0) g/dL Plt Count (150-450) k/uL ABG pH (7.35-7.45) ABG pCO2 (35-45) mmHg ABG Total CO2 (19-24) mmol/L ABG O2 Saturation (94-97) % Chloride (98-107) mmol/L BUN (7-17) mg/dL Creatinine (0.52-1.04) mg/dL Glucose (74-99) mg/dL POC Glucose (mg/dL) 154 H 161 H 169 H (75-99) mg/dL Total Protein (6.3-8.2) g/dL Albumin (3.5-5.0) g/dL 10/27/18 10/27/18 10/27/18 Range/Units 10:00 11:06 11:53 WBC (3.8-10.6) k/uL RBC (3.80-5.40) m/uL Hgb (11.4-16.0) gm/dL Hct (34.0-46.0) % MCHC (31.0-37.0) g/dL Plt Count (150-450) k/uL ABG pH (7.35-7.45) ABG pCO2 (35-45) mmHg ABG Total CO2 (19-24) mmol/L ABG O2 Saturation (94-97) % Chloride (98-107) mmol/L BUN (7-17) mg/dL Creatinine (0.52-1.04) mg/dL Glucose (74-99) mg/dL POC Glucose (mg/dL) 175 H 178 H 160 H (75-99) mg/dL Total Protein (6.3-8.2) g/dL Albumin (3.5-5.0) g/dL 10/27/18 10/27/18 10/27/18 Range/Units 13:02 13:14 13:58 WBC (3.8-10.6) k/uL RBC (3.80-5.40) m/uL Hgb (11.4-16.0) gm/dL Hct (34.0-46.0) % MCHC (31.0-37.0) g/dL Plt Count (150-450) k/uL ABG pH (7.35-7.45) ABG pCO2 (35-45) mmHg ABG Total CO2 (19-24) mmol/L ABG O2 Saturation (94-97) % Chloride (98-107) mmol/L BUN (7-17) mg/dL Creatinine (0.52-1.04) mg/dL Glucose (74-99) mg/dL POC Glucose (mg/dL) 170 H 159 H 160 H (75-99) mg/dL Total Protein (6.3-8.2) g/dL Albumin (3.5-5.0) g/dL 10/27/18 10/27/18 10/27/18 Range/Units 14:59 16:03 17:12 WBC (3.8-10.6) k/uL RBC (3.80-5.40) m/uL Hgb (11.4-16.0) gm/dL Hct (34.0-46.0) % MCHC (31.0-37.0) g/dL Plt Count (150-450) k/uL ABG pH (7.35-7.45) ABG pCO2 (35-45) mmHg ABG Total CO2 (19-24) mmol/L ABG O2 Saturation (94-97) % Chloride (98-107) mmol/L BUN (7-17) mg/dL Creatinine (0.52-1.04) mg/dL Glucose (74-99) mg/dL POC Glucose (mg/dL) 140 H 169 H 135 H (75-99) mg/dL Total Protein (6.3-8.2) g/dL Albumin (3.5-5.0) g/dL Assessment and Plan Assessment: Acute hypoxemic and hypercapnic respiratory failure requiring mechanical ventilation. Acute metabolic encephalopathy secondary infection Sepsis/septic shock secondary to right lower lobe pneumonia. Likely community- acquired Atrial fibrillation with rapid regular rate Acute kidney injury secondary to ATN due to hemodynamic instability and sepsis. Creatinine peaked at 1.6. Currently on 1.29--1.49--1.39 Insulin-dependent diabetes type 2 Asthma exacerbation Metabolic acidosis Paroxysmal atrial fibrillation Hypovolemic hyponatremia Hyperlipidemia Plan: Patient is currently on mechanical ventilator. Pulmonary is following. Continue with antibiotics in the form of Zosyn. ID is on board. Sputum culture is growing Aminta. Continue with oral amiodarone. Patient was given amiodarone bolus. Converted to sinus rhythm now. Continue the current insulin dosing and titrate as needed. Prognosis is guarded. Discussed with family at bedside in detail. Pulmonary, ID, nephrology is following. Time with Patient: Greater than 30
[2018-10-28 02:02] LABS: Glucose,Whole Blood 159 mg/dL (75-99)
[2018-10-28] MEDS: HYDROmorphone 1 MG/ML 1 ML SYRINGE IVP PRN ×2 (02:24→07:11)
[2018-10-28] MEDS: PROPOFOL 1,000 MG in EMPTY BAG 1 BAG IV SCH ×3 (02:25→20:14)
[2018-10-28 03:07] LABS: Glucose,Whole Blood 147 mg/dL (75-99)
[2018-10-28] MEDS: IPRATROPIUM-ALBUTEROL 3 ML NEB INHALATION SCH ×6 (03:13→23:29)
[2018-10-28 04:05] LABS: Glucose,Whole Blood 161 mg/dL (75-99)
[2018-10-28 04:24] LABS: ABG Base Excess -0.9 mmol/L; ABG HCO3 25 mmol/L (21-25); ABG Oxygen Saturation 97.2 % (94-97); ABG PCO2 48 mmHg (35-45); ABG PH 7.33 (7.35-7.45); ABG PO2 102 mmHg (83-108); ABG TCO2 27 mmol/L (19-24)
[2018-10-28 04:41] LABS: Allen Test Performed? no
[2018-10-28 05:12] LABS: Glucose,Whole Blood 170 mg/dL (75-99)
[2018-10-28] MEDS: PIPERACILLIN-TAZOBACTAM 3.375 GM in SODIUM CHLORIDE 0.9% 100 ML IVPB SCH ×3 (05:59→20:15)
[2018-10-28] MEDS: methylPREDNISolone SOD SUCCI 125 MG/2 ML VIAL IV SCH ×3 (05:59→18:29)
[2018-10-28 06:15] LABS: HCT 31.1 % (34.0-46.0); HGB 9.5 gm/dL (11.4-16.0); Hypochromasia Slight; MCH 28.3 pg (25.0-35.0); MCHC 30.6 g/dL (31.0-37.0); MCV 92.5 fL (80.0-100.0); Mean Platelet Volume 7.2; Platelet Count 585 k/uL (150-450); RBC 3.36 m/uL (3.80-5.40); RDW 14.5 % (11.5-15.5); WBC 12.1 k/uL (3.8-10.6)
[2018-10-28 06:20] LABS: Glucose,Whole Blood 178 mg/dL (75-99)
[2018-10-28 06:22] LABS: INR 1.1 (<1.2); Prothrombin Time 11.4 sec (9.0-12.0)
[2018-10-28 06:28] LABS: Albumin 2.8 g/dL (3.5-5.0); Calcium 8.7 mg/dL (8.4-10.2); Potassium 5.2 mmol/L (3.5-5.1); Total Bilirubin 0.3 mg/dL (0.2-1.3); Total Protein 5.3 g/dL (6.3-8.2)
[2018-10-28 07:02] LABS: Glucose,Whole Blood 150 mg/dL (75-99)
[2018-10-28] MEDS: BUDESONIDE 1 MG/2 ML NEBU INHALATION SCH ×2 (07:23→19:20)
[2018-10-28] MEDS: FORMOTEROL FUMARATE 20 MCG/2 ML NEBU INHALATION SCH ×2 (07:23→19:20)
--- NOTE | 2018-10-28 08:17 | P.PN ---
Subjective Patient is seen in follow-up for acute kidney injury. Baseline creatinine is near 1. It peaked at 1.6 on this admission and is stable at 1.4 today. She is off Cardizem drip and is now on oral amiodarone and Lopressor for A. fib. Patient went into hypercapnic respiratory failure and was subsequently intubated on October 19. Remains intubated. Scheduled for trach and PEG today. She is off vasopressors. Maintained on tube feeding. She is nonoliguric. Currently being treated for pneumonia. Sodium level 146 today. Vital signs are stable. General: The patient appeared well nourished and normally developed. HEENT: Head exam is unremarkable. Neck is without jugular venous distension. Intubated. LUNGS: Breath sounds decreased. HEART: Regular rate and rhythm. ABDOMEN: Abdominal exam reveals normal bowel sounds. Non-tender. EXTREMITITES: Trace edema. Objective - Vital Signs Vital signs: Vital Signs Temp 98.6 F 10/28/18 04:00 Pulse 70 10/28/18 07:57 Resp 50 H 10/28/18 07:00 BP 150/78 10/28/18 07:00 Pulse Ox 97 10/28/18 07:00 Intake & Output 10/27/18 10/28/18 10/28/18 18:59 06:59 18:59 Intake Total 2794.001 2676.440 178.16 Output Total 1565 1325 140 Balance -504.289 -78.560 38.16 Weight 102.9 kg Intake: IV 240 440 20 Piperacillin-Tazobactam 3 200 .375 gm In Sodium Chloride 0.9% 100 ml @ 25 mls/hr IVPB Q8H TAMIR Rx#: [id number] Sodium Chloride 0.9% 1, 240 240 20 000 ml @ 20 mls/hr IV . Q24H TAMIR Rx#:[id number] Intake, IV Titration 298.711 212.440 116.16 Amount Insulin Regular 100 unit 98.711 54.153 16.16 In Sodium Chloride 0.9% 100 ml @ Per Protocol IV .Q0M TAMIR Rx#:[id number] Propofol 1,000 mg In 200.000 158.287 100 Empty Bag 1 bag @ Titrate IV .Q0M TAMIR Rx#: [id number] Tube Feeding 462 504 42 Other 60 90 Output: Urine 1565 1125 140 Stool 200 Other: Voiding Method Indwelling Catheter Indwelling Catheter # Voids 1 ABP, PAP, CO, CI - Last Documented Arterial Blood Pressure 153/74 - Labs CBC & Chem 7: 10/28/18 05:26 10/28/18 05:26 Labs: Abnormal Lab Results - Last 24 Hours (Table) 10/27/18 10/27/18 10/27/18 Range/Units 10:00 11:06 11:53 WBC (3.8-10.6) k/uL RBC (3.80-5.40) m/uL Hgb (11.4-16.0) gm/dL Hct (34.0-46.0) % MCHC (31.0-37.0) g/dL Plt Count (150-450) k/uL ABG pH (7.35-7.45) ABG pCO2 (35-45) mmHg ABG Total CO2 (19-24) mmol/L ABG O2 Saturation (94-97) % Sodium (137-145) mmol/L Potassium (3.5-5.1) mmol/L Chloride (98-107) mmol/L BUN (7-17) mg/dL Creatinine (0.52-1.04) mg/dL Glucose (74-99) mg/dL POC Glucose (mg/dL) 175 H 178 H 160 H (75-99) mg/dL Total Protein (6.3-8.2) g/dL Albumin (3.5-5.0) g/dL 10/27/18 10/27/18 10/27/18 Range/Units 13:02 13:14 13:58 WBC (3.8-10.6) k/uL RBC (3.80-5.40) m/uL Hgb (11.4-16.0) gm/dL Hct (34.0-46.0) % MCHC (31.0-37.0) g/dL Plt Count (150-450) k/uL ABG pH (7.35-7.45) ABG pCO2 (35-45) mmHg ABG Total CO2 (19-24) mmol/L ABG O2 Saturation (94-97) % Sodium (137-145) mmol/L Potassium (3.5-5.1) mmol/L Chloride (98-107) mmol/L BUN (7-17) mg/dL Creatinine (0.52-1.04) mg/dL Glucose (74-99) mg/dL POC Glucose (mg/dL) 170 H 159 H 160 H (75-99) mg/dL Total Protein (6.3-8.2) g/dL Albumin (3.5-5.0) g/dL 10/27/18 10/27/18 10/27/18 Range/Units 14:59 16:03 17:12 WBC (3.8-10.6) k/uL RBC (3.80-5.40) m/uL Hgb (11.4-16.0) gm/dL Hct (34.0-46.0) % MCHC (31.0-37.0) g/dL Plt Count (150-450) k/uL ABG pH (7.35-7.45) ABG pCO2 (35-45) mmHg ABG Total CO2 (19-24) mmol/L ABG O2 Saturation (94-97) % Sodium (137-145) mmol/L Potassium (3.5-5.1) mmol/L Chloride (98-107) mmol/L BUN (7-17) mg/dL Creatinine (0.52-1.04) mg/dL Glucose (74-99) mg/dL POC Glucose (mg/dL) 140 H 169 H 135 H (75-99) mg/dL Total Protein (6.3-8.2) g/dL Albumin (3.5-5.0) g/dL 10/27/18 10/27/18 10/27/18 Range/Units 17:57 18:53 20:11 WBC (3.8-10.6) k/uL RBC (3.80-5.40) m/uL Hgb (11.4-16.0) gm/dL Hct (34.0-46.0) % MCHC (31.0-37.0) g/dL Plt Count (150-450) k/uL ABG pH (7.35-7.45) ABG pCO2 (35-45) mmHg ABG Total CO2 (19-24) mmol/L ABG O2 Saturation (94-97) % Sodium (137-145) mmol/L Potassium (3.5-5.1) mmol/L Chloride (98-107) mmol/L BUN (7-17) mg/dL Creatinine (0.52-1.04) mg/dL Glucose (74-99) mg/dL POC Glucose (mg/dL) 150 H 140 H 135 H (75-99) mg/dL Total Protein (6.3-8.2) g/dL Albumin (3.5-5.0) g/dL 10/27/18 10/27/18 10/27/18 Range/Units 21:08 21:58 23:00 WBC (3.8-10.6) k/uL RBC (3.80-5.40) m/uL Hgb (11.4-16.0) gm/dL Hct (34.0-46.0) % MCHC (31.0-37.0) g/dL Plt Count (150-450) k/uL ABG pH (7.35-7.45) ABG pCO2 (35-45) mmHg ABG Total CO2 (19-24) mmol/L ABG O2 Saturation (94-97) % Sodium (137-145) mmol/L Potassium (3.5-5.1) mmol/L Chloride (98-107) mmol/L BUN (7-17) mg/dL Creatinine (0.52-1.04) mg/dL Glucose (74-99) mg/dL POC Glucose (mg/dL) 135 H 147 H 149 H (75-99) mg/dL Total Protein (6.3-8.2) g/dL Albumin (3.5-5.0) g/dL 10/28/18 10/28/18 10/28/18 Range/Units 00:26 01:00 02:00 WBC (3.8-10.6) k/uL RBC (3.80-5.40) m/uL Hgb (11.4-16.0) gm/dL Hct (34.0-46.0) % MCHC (31.0-37.0) g/dL Plt Count (150-450) k/uL ABG pH (7.35-7.45) ABG pCO2 (35-45) mmHg ABG Total CO2 (19-24) mmol/L ABG O2 Saturation (94-97) % Sodium (137-145) mmol/L Potassium (3.5-5.1) mmol/L Chloride (98-107) mmol/L BUN (7-17) mg/dL Creatinine (0.52-1.04) mg/dL Glucose (74-99) mg/dL POC Glucose (mg/dL) 165 H 159 H 159 H (75-99) mg/dL Total Protein (6.3-8.2) g/dL Albumin (3.5-5.0) g/dL 10/28/18 10/28/18 10/28/18 Range/Units 03:06 04:04 04:23 WBC (3.8-10.6) k/uL RBC (3.80-5.40) m/uL Hgb (11.4-16.0) gm/dL Hct (34.0-46.0) % MCHC (31.0-37.0) g/dL Plt Count (150-450) k/uL ABG pH 7.33 L (7.35-7.45) ABG pCO2 48 H (35-45) mmHg ABG Total CO2 27 H (19-24) mmol/L ABG O2 Saturation 97.2 H (94-97) % Sodium (137-145) mmol/L Potassium (3.5-5.1) mmol/L Chloride (98-107) mmol/L BUN (7-17) mg/dL Creatinine (0.52-1.04) mg/dL Glucose (74-99) mg/dL POC Glucose (mg/dL) 147 H 161 H (75-99) mg/dL Total Protein (6.3-8.2) g/dL Albumin (3.5-5.0) g/dL 10/28/18 10/28/18 10/28/18 Range/Units 05:11 05:26 05:26 WBC 12.1 H (3.8-10.6) k/uL RBC 3.36 L (3.80-5.40) m/uL Hgb 9.5 L (11.4-16.0) gm/dL Hct 31.1 L (34.0-46.0) % MCHC 30.6 L (31.0-37.0) g/dL Plt Count 585 H (150-450) k/uL ABG pH (7.35-7.45) ABG pCO2 (35-45) mmHg ABG Total CO2 (19-24) mmol/L ABG O2 Saturation (94-97) % Sodium 146 H (137-145) mmol/L Potassium 5.2 H (3.5-5.1) mmol/L Chloride 114 H (98-107) mmol/L BUN 64 H (7-17) mg/dL Creatinine 1.40 H (0.52-1.04) mg/dL Glucose 161 H (74-99) mg/dL POC Glucose (mg/dL) 170 H (75-99) mg/dL Total Protein 5.3 L (6.3-8.2) g/dL Albumin 2.8 L (3.5-5.0) g/dL 10/28/18 10/28/18 Range/Units 06:17 07:01 WBC (3.8-10.6) k/uL RBC (3.80-5.40) m/uL Hgb (11.4-16.0) gm/dL Hct (34.0-46.0) % MCHC (31.0-37.0) g/dL Plt Count (150-450) k/uL ABG pH (7.35-7.45) ABG pCO2 (35-45) mmHg ABG Total CO2 (19-24) mmol/L ABG O2 Saturation (94-97) % Sodium (137-145) mmol/L Potassium (3.5-5.1) mmol/L Chloride (98-107) mmol/L BUN (7-17) mg/dL Creatinine (0.52-1.04) mg/dL Glucose (74-99) mg/dL POC Glucose (mg/dL) 178 H 150 H (75-99) mg/dL Total Protein (6.3-8.2) g/dL Albumin (3.5-5.0) g/dL Assessment and Plan Plan: Assessment: 1. Acute kidney injury secondary to ATN secondary to hemodynamic instability, contrast-induced nephropathy and sepsis. Baseline creatinine 1. Creatinine peaked at 1.6 on this admission and is stable at 1.4 today. Trace proteinuria noted on UA. 2. Mild volume overload. Better. Status post IV Lasix October 25. 3. Septic shock secondary to pneumonia maintained on antibiotics. Currently off Levophed. Sputum culture positive for Aminta. 4. A. fib with RVR maintained on oral amiodarone and Lopressor. Cardiology following. 5. Insulin-dependent diabetes mellitus. 6. Acute hypercapnic respiratory failure. 7. Metabolic acidosis secondary to acute kidney injury. Better. 8. Mild hyponatremia secondary to lack of her water intake. Plan: Maintain tube feeding. Start free water flushes at rate of 300 mL every 6 hours. Avoid nephrotoxins. Discontinued Toradol. Continue to monitor renal function and urine output. Scheduled for tracheostomy and PEG tube placement today.
--- NOTE | 2018-10-28 08:21 | XR ---
EXAMINATION TYPE: XR chest 1V portable DATE OF EXAM: 10/28/2018 COMPARISON: Prior chest x-ray 10/27/2018 HISTORY: Ventilated TECHNIQUE: Single frontal view of the chest is obtained. FINDINGS: Endotracheal tube and orogastric tube are overlying appropriate positions. No evident pneu mothorax. There is some improvement in visualization of the right hemidiaphragm. No pneumothorax. Hea rt size is likely stable, rotation. There is persistent bibasilar density right greater than left. IMPRESSION: Some improvement in aeration may be present. Correlate for pneumonia.
[2018-10-28 09:38] LABS: Glucose,Whole Blood 163 mg/dL (75-99)
[2018-10-28] MEDS: PANTOPRAZOLE 40 MG/10 ML VIAL IVP SCH ×2 (10:00→20:14)
[2018-10-28] MEDS: MAGNESIUM OXIDE 400 MG TAB PO SCH (10:00)
[2018-10-28] MEDS: AMIODARONE 200 MG TAB PO SCH ×2 (10:00→20:15)
[2018-10-28] MEDS: METOPROLOL TARTRATE 25 MG TAB PO SCH ×2 (10:00→20:15)
[2018-10-28] MEDS: CHLORHEXIDINE GLUCONATE 15 ML CUP MUCOUS MEM SCH ×2 (10:00→20:14)
[2018-10-28] MEDS ORDERED: LIDOCAINE 1% INJ 10MG/ML (20 ML MDV) ONE (10:18)
--- NOTE | 2018-10-28 10:46 | PN ---
PROGRESS NOTE DATE OF SERVICE: 10/28/2018 CRITICAL CARE TIME: 35 minutes. This is a 58-year-old female admitted back on October 14 with an episode of sepsis and pneumonia. Five days later on the , she developed acute hypoxemic respiratory failure and was intubated and mechanically ventilated. She had a history of bronchoscopy performed by my partner on October 21. Since that time, she has not made much progress or at all. She was best suited for the VC plus mode on the ventilator. This is pressure regulated volume control. She is currently set at a rate of 30, an inspiratory time of 1 second, targeted tidal volume 350, FiO2 of 50% and PEEP of 12. Blood gases show pO2 102, pCO2 of 48, pH of 7.33. Currently, in addition, she is on propofol at 20 mcg/kg per minute, insulin at 6 units an hour, 0.9 at 20 mL an hour. Tube feeds are on hold for an anticipated tracheostomy and PEG tube placement today. We did talk to the family and mentioned that that was probably the best way to get her moving in the right direction. As I mentioned, she has been intubated since the . The reason she was switched to the VC plus mode was because she was dyssynchronous with the ventilator. She has a history of diabetes, COPD, and right-sided pleural effusion. PHYSICAL EXAMINATION: VITAL SIGNS: Current vital signs are reviewed. Temperature is 96, heart rate 67, respiratory rate is 30, blood pressure is 132/65, mean 87, and saturations are 97% on 50% and PEEP of 12. Appears in no acute distress. Currently sedated. HEENT: Examination is grossly unremarkable. There is an orally placed NG tube and endotracheal tube. NECK: Supple. Full range of motion. No adenopathy, thyromegaly or neck vein distention appreciated. CARDIOVASCULAR: Examination reveals regular rhythm rate. Heart rate in the high 70s, low 80s. S1, S2 normal. No S3, S4, or murmur. LUNGS: Reveal a few scattered coarse rhonchi. Breath sounds are diminished. Slight prolongation noted. ABDOMEN: Soft. Bowel sounds are heard. EXTREMITIES: Are intact. Minimal edema. No cyanosis or clubbing. SKIN: Without rash. NEUROLOGIC: Examination difficult to assess because she is currently sedated. Microbiologic studies are all negative. There is Aminta in bronch washings and sputum samples. LABS: Labs are reviewed. White count 12.1, hemoglobin 9.5, hematocrit 31.1, platelet count 585,000. PT, INR normal. Sodium 146, potassium 5.2, chloride 114, CO2 is 25. Anion gap is 7. BUN and creatinine were 64 and 1.40. Labs are reviewed. She has a properly placed endotracheal tube and NG tube. There is some improvement in the bibasilar infiltrates and atelectasis. This is especially noted on the right side. There may be small effusions still. Medications are reviewed. ASSESSMENT: 1. Acute hypoxemic and hypercapnic respiratory failure secondary to bilateral pneumonia, right greater than left, which required intubation and mechanical ventilation on October 19 and subsequent bronchoscopy on October 21. 2. Failure to wean from mechanical ventilation with anticipated PEG tube placement and tracheostomy today. 3. History of sepsis and pneumonia. 4. Hypotension, secondary to sepsis, resolved. 5. Type 2 diabetes mellitus. 6. History of chronic obstructive pulmonary disease/asthma. 7. History of acute hypoxemic respiratory failure. 8. History of small right-sided pleural effusion. 9. Multiple other medical problems and comorbidities. PLAN: Currently, the patient is doing relatively well. She was stable overnight. Tube feeds are on hold. Microbiologic studies have thus far continued to be negative. She is going to have a tracheostomy and PEG tube placed today by Dr. Fung. We will continue to follow. Overall prognosis remains guarded. Additional recommendations and suggestions are forthcoming. CRITICAL CARE TIME: 35 minutes. PEDRO / SUNDARN: [id number] /
[2018-10-28] MEDS ORDERED: LIDOCAINE 1% INJ 10MG/ML (20 ML MDV) SQ ONE (10:58)
[2018-10-28] MEDS: NOREPINEPHRINE 4 MG in SODIUM CHLORIDE 0.9% 250 ML IV SCH (11:02)
--- NOTE | 2018-10-28 11:07 | PCN ---
PROCEDURE NOTE DATE OF PROCEDURE: 10/27/2018. PREOPERATIVE DIAGNOSIS: Acute respiratory failure, sepsis. POSTOPERATIVE DIAGNOSIS: Acute respiratory failure, sepsis. PROCEDURE: Left radial arterial line placement. ARTERIAL LINE PLACEMENT: Indications: Hemodynamic monitoring. A time-out was completed verifying correct patient, procedure, site, positioning, and implant(s) or special equipment if applicable. Maxime's test was performed to ensure adequate perfusion. The patient's left wrist was prepped and draped in sterile fashion. 1% Lidocaine was used to anesthetize the area. An 18G Arrow arterial line was introduced into the left radial artery. The catheter was threaded over the guide wire and the needle was removed with appropriate pulsatile blood return. Blood loss was minimal. The catheter was then sutured in place to the skin and a sterile dressing applied. Perfusion to the extremity distal to the point of catheter insertion was checked and found to be adequate. The patient tolerated the procedure well and there were no complications. The patient tolerated the procedure well, no immediate complications, good waveform was noted, line was flushed, sutured in place, sterile dressing was applied. MMODL / IJN: [id number] /
[2018-10-28] MEDS: MAG HYDROX/AL HYDROX/SIMETH 30 ML, LIDOCAINE VISCOUS 30 ML, NYSTATIN 100,000 UNIT/ML SU... PO SCH ×12 (11:22→21:15)
[2018-10-28] MEDS: amLODIPine 2.5 MG TAB PO SCH (11:22)
--- NOTE | 2018-10-28 11:24 | XR ---
EXAMINATION TYPE: XR chest 1V portable DATE OF EXAM: 10/28/2018 COMPARISON: Prior chest x-ray 10/28/2017 and earlier HISTORY: Status post PICC line placement TECHNIQUE: Single frontal view of the chest is obtained. FINDINGS: Interval placement of right-sided PICC line, distal tip is overlying the superior vena cav a. No other significant interval change. IMPRESSION: No evidence complication status post PICC line placement.
[2018-10-28 11:37] LABS: Glucose,Whole Blood 153 mg/dL (75-99)
[2018-10-28] MEDS ORDERED: fentaNYL (PF) 50 MCG/ML 2 ML AMP ONE (12:35)
[2018-10-28] MEDS ORDERED: ROCURONIUM BROMIDE 10 MG/ML 10 ML VIAL IV ONE (12:35)
[2018-10-28] MEDS ORDERED: IV FLUID CONTINUATION 1,000 ML IV ONE (12:43)
[2018-10-28] MEDS ORDERED: BUPIVACAINE (PF) 0.5% 30 ML VIAL SQ ONE ×2 (13:18)
[2018-10-28] MEDS ORDERED: FUROSEMIDE 10 MG/ML 4 ML VIAL IV STA (13:56)
--- NOTE | 2018-10-28 14:09 | P.OP ---
Date of Procedure: 10/28/18 Procedure(s) Performed: PREOPERATIVE DIAGNOSIS: Respiratory failure, malnutrition POSTOPERATIVE DIAGNOSIS: Same PROCEDURE: Tracheostomy, EGD with PEG tube placement SURGEON: Kenton EBL: Minimal ANESTHESIA: General COMPLICATIONS: None OPERATIVE PROCEDURE: Patient was placed in the operative table in the supine position. A shoulder roll was utilized. The neck was prepped and draped in usual sterile fashion. The skin was infiltrated with local anesthesia. A small cervical incision was created using the scalpel. Dissection through the subcutaneous fat and platysma layer took place using electrocautery. The underlying strap muscles were divided in the midline. The thyroid isthmus was divided using electrocautery as well. No bleeding was seen. The trachea was easily identified at this time. The endotracheal tube was advanced and the balloon was reinflated. The patient was preoxygenated with 100% FiO2. The FiO2 was then brought down to room air. Once the end title oxygen level was less than 35 a vertical tracheostomy was created using the electrocautery. This went through the second and third tracheal ring. The patient was again preoxygenated with 100% FiO2. The tool smith was utilized. Carefully the endotracheal tube was withdrawn just proximal to our tracheostomy. The 8-Tamazight Shiley nonfenestrated tracheostomy catheter was advanced under direct visualization into the trachea. The obturator was inserted. This was then connected to the ventilator. Positive end tidal CO2 was confirmed. The tracheal ties were utilized. The trach was sutured to the skin superiorly using 2 separate 0 silk sutures. The skin was closed using 3-0 Vicryl sutures. A dressing was applied. The patient was kept in the supine position on the operating room table. The Olympus gastroscope was inserted into the oropharynx and passed under direct visualization to the region of the duodenum. No obstruction was seen. The pylorus was widely patent. The stomach was carefully inspected. The stomach was fully insufflated with air. The abdominal wall was inspected. The light was seen shining through the abdominal wall in the left upper quadrant. This site was chosen for PEG tube placement. The area was prepped in the usual sterile fashion. A small vertical incision was made using the scalpel. The Seldinger needle was advanced into the lumen of the stomach the wire was advanced. The wire was grasped with an endoscopic snare. The wire was pulled through the oropharynx. The catheter was then threaded over the guidewire and the guidewire and catheter were pulled anteriorly until the hub of the PEG tube catheter was seated against the anterior wall the stomach. The circular bolster was applied and tightened down. The endoscope was then readvanced into the stomach. There was no evidence of any bleeding and there was appropriate tightness on the bolster. The catheter was cut appropriately. The dual port feeding adapter was applied. DISPOSITION: Stable to ICU
[2018-10-28 14:46] LABS: Glucose,Whole Blood 132 mg/dL (75-99)
[2018-10-28 16:09] LABS: Glucose,Whole Blood 176 mg/dL (75-99)
--- NOTE | 2018-10-28 16:10 | PN ---
PROGRESS NOTE DATE OF SERVICE: Mrs. Cota is a lady with paroxysmal atrial fibrillation, but through the night she was in a sinus rhythm, very comfortable. She is going for tracheostomy today. Hemodynamically stable. Weaning has not been started yet. Vitals are stable. S1, S2 heard normally. Short systolic murmur noted. Lungs reveal diminished air entry. Abdomen and lower extremity exam unchanged. Plan is to continue current medical regimen, including higher dose of amiodarone, which I will decrease later on. MMODL / IJN: [id number] /
--- NOTE | 2018-10-28 16:28 | IR ---
EXAMINATION TYPE: IR cvc insert >=5 years DATE OF EXAM: 10/28/2018 COMPARISON: NONE HISTORY: Needs long-term intravenous access for total parenteral nutrition FINDINGS: Maximal barrier technique was utilized. The skin overlying the right basilic vein was loca lized with ultrasound and noted to be compressible and patent by ultrasound. An ultrasound image was obtained and submitted on patient's chart. Sterile technique utilized with the ultrasound machine. T he skin overlying was prepped and draped and Lidocaine used for local anesthesia. A skin mitzy was ma de with a scalpel. Access was gained to the vein under direct ultrasound guidance with a 21-gauge ne edle and a 0.018 inch wire was advanced. Access site was dilated with a peel-away sheath and the cat heter tailored to length. Catheter advanced centrally and a post procedure chest x-ray verified plac ement with tip in the superior vena cava. Catheter was fixed to the skin and a sterile dressing carol millie. Hemostasis achieved and the catheter was aspirated and flushed with sterile saline. The patien t remained in stable condition. IMPRESSION: STATUS POST ULTRASOUND GUIDED PICC LINE PLACEMENT, READY FOR USE. THIS PROCEDURE WAS PER FORMED BY THE UNDERSIGNED.
[2018-10-28 17:11] LABS: Glucose,Whole Blood 226 mg/dL (75-99)
[2018-10-28 18:23] LABS: Glucose,Whole Blood 201 mg/dL (75-99)
[2018-10-28 20:07] LABS: Glucose,Whole Blood 166 mg/dL (75-99)
[2018-10-28] MEDS: SERTRALINE 50 MG TAB PO SCH (20:15)
[2018-10-28] MEDS: MONTELUKAST 10 MG TAB PO SCH (20:15)
[2018-10-28] MEDS: ATORVASTATIN 40 MG TAB PO SCH (20:15)
[2018-10-28] MEDS: SODIUM CHLORIDE 0.9% 1,000 ML IV SCH (20:20)
[2018-10-28 21:02] LABS: Glucose,Whole Blood 152 mg/dL (75-99)
--- NOTE | 2018-10-28 21:09 | P.PN ---
Subjective Progress Note Date: 10/28/18 58 -year-old female with history of diabetes mellitus type 2 generally is completely independent relates to approximate 4 day history of feeling poorly. She started to feel fever chills generalized malaise cough with yellowish sputum production and no hemoptysis. Her fever increased she felt w eak and confused and was brought to the emergency center. There she has not evidence of a high-grade fever leukocytosis and sepsis as well as atrial fibrillation, she was treated with a dose of Cardizem with hydration and resolution of her A. fib. The patient continued to feel ill continue to have ongoing fevers because of the consult was requested. At the time of the consult antibiotic therapy was altered and anti-inflammatory with Toradol was requested and the patient is feeling considerably better today. After the first dorsal Toradol her sugar went from 103.5-99.5. The highest it's been so far today is 101.5. Patient does feel poorly still. She has shortness of breath or oxygen therapy she has cough without much sputum production or hemoptysis does have discomfort in her chest with coughing. 10/17/2018 the patient had significant worsening of her status overnight. She developed atrial fibrillation with a rapid ventricular response and was brought to the intensive care unit has been treated with Cardizem and amiodarone. She has had an improvement of her cardiac dysrhythmia and is somewhat less short of breath. She had further fever which is now much improved since her transfer to the intensive care unit. She relates she still feels poorly but better than last night. She is not having chest pain. No chills or rigors are occurring at this time. 10/18/2018 patient is now feeling somewhat better. She is much less short of breath. Fevers have resolved. Cardiac dysrhythmia has improved. Leukocytosis is also improving. 10/19/2018 has further improvement. She is however quite sleepy today. Atrial fibrillation is improved. Leukocytosis improving. Appetite still somewhat poor and other than fatigue has improved. 10/20/2018 the patient now has a significant worsening of her status. She really developed respiratory failure last evening her current intubation sedation mechanical ventilation in addition of vasopressor therapy. She's been seen by pulmonary critical care. Her significant cardiac dysrhythmia does seem to be more stable at this time. Oxygenation is improved. Renal failure has worsened. 10/21/2018 the patient has had little change in her status. However bronchoscopy has been performed for further treatment and diagnosis of her pneumonia and respiratory failure. She tolerated the procedure well only 2 changes are of renal failure vancomycin has been discontinued at this time pending further culture results. She's had one further fever overnight of 101.1 better today. Leukocytosis is improving. No other new acute changes 10/24/2018 patient has had some ventilator changes today. She is afebrile. Is no longer on vasopressor therapy or IV amiodarone. 10/25/2018 patient remains ventilator dependent. Further changes of ventilator settings have occurred with PEEP now at 12. Positive cultures. Cardiac dysrhythmias improving. Fever has improved. 10/28/2018 patient is remaining ventilator dependent she does have PEEP at 12 it is now had tracheostomy and PEG tube placement given her chronic respiratory failure Objective - Vital Signs Vital signs: Vital Signs Temp 98.6 F 10/28/18 16:00 Pulse 75 10/28/18 19:47 Resp 22 10/28/18 18:00 BP 148/82 10/28/18 10:00 Pulse Ox 99 10/28/18 18:00 Intake & Output 10/28/18 10/28/18 10/29/18 06:59 18:59 06:59 Intake Total 9751.610 3469.737 Output Total 1325 3715 Balance -78.560 -2680.263 Weight 102.9 kg 102.9 kg Intake: IV 440 720 Piperacillin-Tazobactam 3 200 100 .375 gm In Sodium Chloride 0.9% 100 ml @ 25 mls/hr IVPB Q8H T[facility]IR Rx#: [id number] Sodium Chloride 0.9% 1, 240 220 000 ml @ 20 mls/hr IV . Q24H T[facility]IR Rx#:[id number] Intake, IV Titration 212.440 272.737 Amount Insulin Regular 100 unit 54.153 72.737 In Sodium Chloride 0.9% 100 ml @ Per Protocol IV .Q0M T[facility]IR Rx#:[id number] Propofol 1,000 mg In 158.287 200 Empty Bag 1 bag @ Titrate IV .Q0M TAMIR Rx#: [id number] Tube Feeding 504 42 Other 90 Output: Urine 1125 3500 Stool 200 200 Estimated Blood Loss 15 Other: Voiding Method Indwelling Catheter Indwelling Catheter ABP, PAP, CO, CI - Last Documented Arterial Blood Pressure 106/52 - Exam 58 -year-old woman, has now had tracheostomy placed remains mechanically ventilated HEENT: Anicteric conjunctiva are pink and moist nasal mucosa grossly intact without significant lesions, there is no thrush. Trach site without bleeding Neck: The neck is supple without significant lymphadenopathy or thyromegaly. Lungs: Symmetrical bilateral air entry,there is some evidence of air entry with some crackles noted a few crackles at the right posterior mid zone, posterior left lower zone also with crackles no distinct egophony nor dullness in either area some expiratory wheezes are scattered Heart: Rhythm is regular with an audible S1-S2, no S3 no S4. There is no significant murmur click or rub, PMI was nondisplaced. Abdomen: Obese, Positive bowel sounds soft and nontender without palpable masses or organomegaly. There was no guarding or rebound. PEG is now been applied and dressing is intact now just postsurgical Extremities: The upper extremities have excellent pulses they are symmetric, no significant petechiae or telangiectasia. No splinter hemorrhages were noted. His also lower extremity edema no open ulcerations Neuro: She is sedated and mechanically ventilated - Labs CBC & Chem 7: 10/28/18 05:26 10/28/18 05:26 Labs: Abnormal Lab Results - Last 24 Hours (Table) 10/27/18 10/27/18 10/27/18 Range/Units 21:08 21:58 23:00 WBC (3.8-10.6) k/uL RBC (3.80-5.40) m/uL Hgb (11.4-16.0) gm/dL Hct (34.0-46.0) % MCHC (31.0-37.0) g/dL Plt Count (150-450) k/uL ABG pH (7.35-7.45) ABG pCO2 (35-45) mmHg ABG Total CO2 (19-24) mmol/L ABG O2 Saturation (94-97) % Sodium (137-145) mmol/L Potassium (3.5-5.1) mmol/L Chloride (98-107) mmol/L BUN (7-17) mg/dL Creatinine (0.52-1.04) mg/dL Glucose (74-99) mg/dL POC Glucose (mg/dL) 135 H 147 H 149 H (75-99) mg/dL Total Protein (6.3-8.2) g/dL Albumin (3.5-5.0) g/dL 10/28/18 10/28/18 10/28/18 Range/Units 00:26 01:00 02:00 WBC (3.8-10.6) k/uL RBC (3.80-5.40) m/uL Hgb (11.4-16.0) gm/dL Hct (34.0-46.0) % MCHC (31.0-37.0) g/dL Plt Count (150-450) k/uL ABG pH (7.35-7.45) ABG pCO2 (35-45) mmHg ABG Total CO2 (19-24) mmol/L ABG O2 Saturation (94-97) % Sodium (137-145) mmol/L Potassium (3.5-5.1) mmol/L Chloride (98-107) mmol/L BUN (7-17) mg/dL Creatinine (0.52-1.04) mg/dL Glucose (74-99) mg/dL POC Glucose (mg/dL) 165 H 159 H 159 H (75-99) mg/dL Total Protein (6.3-8.2) g/dL Albumin (3.5-5.0) g/dL 10/28/18 10/28/18 10/28/18 Range/Units 03:06 04:04 04:23 WBC (3.8-10.6) k/uL RBC (3.80-5.40) m/uL Hgb (11.4-16.0) gm/dL Hct (34.0-46.0) % MCHC (31.0-37.0) g/dL Plt Count (150-450) k/uL ABG pH 7.33 L (7.35-7.45) ABG pCO2 48 H (35-45) mmHg ABG Total CO2 27 H (19-24) mmol/L ABG O2 Saturation 97.2 H (94-97) % Sodium (137-145) mmol/L Potassium (3.5-5.1) mmol/L Chloride (98-107) mmol/L BUN (7-17) mg/dL Creatinine (0.52-1.04) mg/dL Glucose (74-99) mg/dL POC Glucose (mg/dL) 147 H 161 H (75-99) mg/dL Total Protein (6.3-8.2) g/dL Albumin (3.5-5.0) g/dL 10/28/18 10/28/18 10/28/18 Range/Units 05:11 05:26 05:26 WBC 12.1 H (3.8-10.6) k/uL RBC 3.36 L (3.80-5.40) m/uL Hgb 9.5 L (11.4-16.0) gm/dL Hct 31.1 L (34.0-46.0) % MCHC 30.6 L (31.0-37.0) g/dL Plt Count 585 H (150-450) k/uL ABG pH (7.35-7.45) ABG pCO2 (35-45) mmHg ABG Total CO2 (19-24) mmol/L ABG O2 Saturation (94-97) % Sodium 146 H (137-145) mmol/L Potassium 5.2 H (3.5-5.1) mmol/L Chloride 114 H (98-107) mmol/L BUN 64 H (7-17) mg/dL Creatinine 1.40 H (0.52-1.04) mg/dL Glucose 161 H (74-99) mg/dL POC Glucose (mg/dL) 170 H (75-99) mg/dL Total Protein 5.3 L (6.3-8.2) g/dL Albumin 2.8 L (3.5-5.0) g/dL 10/28/18 10/28/18 10/28/18 Range/Units 06:17 07:01 09:37 WBC (3.8-10.6) k/uL RBC (3.80-5.40) m/uL Hgb (11.4-16.0) gm/dL Hct (34.0-46.0) % MCHC (31.0-37.0) g/dL Plt Count (150-450) k/uL ABG pH (7.35-7.45) ABG pCO2 (35-45) mmHg ABG Total CO2 (19-24) mmol/L ABG O2 Saturation (94-97) % Sodium (137-145) mmol/L Potassium (3.5-5.1) mmol/L Chloride (98-107) mmol/L BUN (7-17) mg/dL Creatinine (0.52-1.04) mg/dL Glucose (74-99) mg/dL POC Glucose (mg/dL) 178 H 150 H 163 H (75-99) mg/dL Total Protein (6.3-8.2) g/dL Albumin (3.5-5.0) g/dL 10/28/18 10/28/18 10/28/18 Range/Units 11:31 14:43 16:07 WBC (3.8-10.6) k/uL RBC (3.80-5.40) m/uL Hgb (11.4-16.0) gm/dL Hct (34.0-46.0) % MCHC (31.0-37.0) g/dL Plt Count (150-450) k/uL ABG pH (7.35-7.45) ABG pCO2 (35-45) mmHg ABG Total CO2 (19-24) mmol/L ABG O2 Saturation (94-97) % Sodium (137-145) mmol/L Potassium (3.5-5.1) mmol/L Chloride (98-107) mmol/L BUN (7-17) mg/dL Creatinine (0.52-1.04) mg/dL Glucose (74-99) mg/dL POC Glucose (mg/dL) 153 H 132 H 176 H (75-99) mg/dL Total Protein (6.3-8.2) g/dL Albumin (3.5-5.0) g/dL 10/28/18 10/28/18 10/28/18 Range/Units 17:10 18:20 20:06 WBC (3.8-10.6) k/uL RBC (3.80-5.40) m/uL Hgb (11.4-16.0) gm/dL Hct (34.0-46.0) % MCHC (31.0-37.0) g/dL Plt Count (150-450) k/uL ABG pH (7.35-7.45) ABG pCO2 (35-45) mmHg ABG Total CO2 (19-24) mmol/L ABG O2 Saturation (94-97) % Sodium (137-145) mmol/L Potassium (3.5-5.1) mmol/L Chloride (98-107) mmol/L BUN (7-17) mg/dL Creatinine (0.52-1.04) mg/dL Glucose (74-99) mg/dL POC Glucose (mg/dL) 226 H 201 H 166 H (75-99) mg/dL Total Protein (6.3-8.2) g/dL Albumin (3.5-5.0) g/dL 10/28/18 Range/Units 21:01 WBC (3.8-10.6) k/uL RBC (3.80-5.40) m/uL Hgb (11.4-16.0) gm/dL Hct (34.0-46.0) % MCHC (31.0-37.0) g/dL Plt Count (150-450) k/uL ABG pH (7.35-7.45) ABG pCO2 (35-45) mmHg ABG Total CO2 (19-24) mmol/L ABG O2 Saturation (94-97) % Sodium (137-145) mmol/L Potassium (3.5-5.1) mmol/L Chloride (98-107) mmol/L BUN (7-17) mg/dL Creatinine (0.52-1.04) mg/dL Glucose (74-99) mg/dL POC Glucose (mg/dL) 152 H (75-99) mg/dL Total Protein (6.3-8.2) g/dL Albumin (3.5-5.0) g/dL Laboratory Results WBC 12.1 k/uL (3.8-10.6) H 10/28/18 05:26 RBC 3.36 m/uL (3.80-5.40) L 10/28/18 05:26 Hgb 9.5 gm/dL (11.4-16.0) L 10/28/18 05:26 Hct 31.1 % (34.0-46.0) L 10/28/18 05:26 MCV 92.5 fL (80.0-100.0) 10/28/18 05:26 MCH 28.3 pg (25.0-35.0) 10/28/18 05:26 MCHC 30.6 g/dL (31.0-37.0) L 10/28/18 05:26 RDW 14.5 % (11.5-15.5) 10/28/18 05:26 Plt Count 585 k/uL (150-450) H 10/28/18 05:26 Neutrophils % 78 % 10/16/18 09:11 Lymphocytes % 17 % 10/16/18 09:11 Monocytes % 3 % 10/16/18 09:11 Eosinophils % 0 % 10/16/18 09:11 Basophils % 0 % 10/16/18 09:11 Neutrophils # 4.9 k/uL (1.3-7.7) 10/16/18 09:11 Lymphocytes # 1.1 k/uL (1.0-4.8) 10/16/18 09:11 Monocytes # 0.2 k/uL (0-1.0) 10/16/18 09:11 Eosinophils # 0.0 k/uL (0-0.7) 10/16/18 09:11 Basophils # 0.0 k/uL (0-0.2) 10/16/18 09:11 Hypochromasia Slight 10/28/18 05:26 PT 11.4 sec (9.0-12.0) 10/28/18 05:26 INR 1.1 (<1.2) 10/28/18 05:26 APTT 28.8 sec (22.0-30.0) 10/13/18 23:47 Sample Site mcdaniels 10/28/18 04:23 ABG pH 7.33 (7.35-7.45) L 10/28/18 04:23 ABG pCO2 48 mmHg (35-45) H 10/28/18 04:23 ABG pO2 102 mmHg (83-108) 10/28/18 04:23 ABG HCO3 25 mmol/L (21-25) 10/28/18 04:23 ABG Total CO2 27 mmol/L (19-24) H 10/28/18 04:23 ABG O2 Saturation 97.2 % (94-97) H 10/28/18 04:23 ABG Base Excess -0.9 mmol/L 10/28/18 04:23 Maxime Test no 10/28/18 04:23 FiO2 50 % 10/28/18 04:23 Sodium 146 mmol/L (137-145) H 10/28/18 05:26 Potassium 5.2 mmol/L (3.5-5.1) H 10/28/18 05:26 Chloride 114 mmol/L (98-107) H 10/28/18 05:26 Carbon Dioxide 25 mmol/L (22-30) 10/28/18 05:26 Anion Gap 7 mmol/L 10/28/18 05:26 BUN 64 mg/dL (7-17) H 10/28/18 05:26 Creatinine 1.40 mg/dL (0.52-1.04) H 10/28/18 05:26 Est GFR (CKD-EPI)AfAm 47 (>60 ml/min/1.73 sqM) 10/28/18 05:26 Est GFR (CKD-EPI)NonAf 41 (>60 ml/min/1.73 sqM) 10/28/18 05:26 Glucose 161 mg/dL (74-99) H 10/28/18 05:26 POC Glucose (mg/dL) 152 mg/dL (75-99) H 10/28/18 21:01 POC Glu Video Operator ID iLvia Alba 10/28/18 21:[address] Glu mg/dL 186 10/15/18 06:32 Hemoglobin A1c 8.1 % (4.0-6.0) H 10/15/18 06:32 Plasma Lactic Acid Bola 0.8 mmol/L (0.7-2.0) 10/16/18 16:53 Calcium 8.7 mg/dL (8.4-10.2) 10/28/18 05:26 Phosphorus 4.1 mg/dL (2.5-4.5) 10/25/18 05:04 Magnesium 2.1 mg/dL (1.6-2.3) 10/25/18 05:04 Total Bilirubin 0.3 mg/dL (0.2-1.3) 10/28/18 05:26 AST 15 U/L (14-36) 10/28/18 05:26 ALT 33 U/L (9-52) 10/28/18 05:26 Alkaline Phosphatase 52 U/L (38-126) 10/28/18 05:26 NT-Pro-B Natriuret Pep 256 pg/mL 10/15/18 06:32 Total Protein 5.3 g/dL (6.3-8.2) L 10/28/18 05:26 Albumin 2.8 g/dL (3.5-5.0) L 10/28/18 05:26 Amylase 83 U/L (30-110) 10/20/18 06:04 Lipase 190 U/L (23-300) 10/20/18 06:04 Urine Color Light Yellow 10/20/18 01:00 Urine Appearance Cloudy (Clear) H 10/20/18 01:00 Urine pH 5.5 (5.0-8.0) 10/20/18 01:00 Ur Specific [place] 1.011 (1.001-1.035) 10/20/18 01:00 Urine Protein 1+ (Negative) H 10/20/18 01:00 Urine Glucose (UA) Negative (Negative) 10/20/18 01:00 Urine Ketones Negative (Negative) 10/20/18 01:00 Urine Blood Small (Negative) H 10/20/18 01:00 Urine Nitrite Negative (Negative) 10/20/18 01:00 Urine Bilirubin Negative (Negative) 10/20/18 01:00 Urine Urobilinogen <2.0 mg/dL (<2.0) 10/20/18 01:00 Ur Leukocyte Esterase Negative (Negative) 10/20/18 01:00 Urine RBC 3 /hpf (0-5) 10/20/18 01:00 Urine WBC 1 /hpf (0-5) 10/20/18 01:00 Ur Squamous Epith Cells <1 /hpf (0-4) 10/20/18 01:00 Amorphous Sediment Occasional /hpf (None) H 10/20/18 01:00 Urine Bacteria Rare /hpf (None) H 10/13/18 18:06 Urine Mucus Rare /hpf (None) H 10/20/18 01:00 Fluid Source Bronchial Wash 10/21/18 13:00 Fluid Color Colorless 10/21/18 13:00 Fluid Appearance Cloudy 10/21/18 13:00 Fluid RBC 730 /uL 10/21/18 13:00 Fluid Nucleated Cells 515 /uL 10/21/18 13:00 Fluid Polynuclear WBCs 20 % 10/21/18 13:00 Fluid Mononuclear WBCs 80 % 10/21/18 13:00 Stool Occult Blood Positive (Negative) H 10/21/18 23:34 Vancomycin Trough 24.7 ug/mL 10/20/18 06:04 Random Vancomycin 17.9 ug/mL 10/21/18 05:13 C. difficile (EIA) Intrp Negative (Negative) 10/21/18 23:31 Influenza Type A RNA Not Detected (Not Detectd) 10/22/18 18:10 Influenza Type B (PCR) Not Detected (Not Detectd) 10/22/18 18:10 Urine Legionella Ag Not detected (Not detected) 10/22/18 18:10 Mycoplasma pneumon IgG 0.67 INDEX (<=0.90) 10/22/18 18:28 Mycoplasma pneumon IgM 0.09 INDEX (<=0.90) 10/22/18 18:28 Virus Source See Below 10/21/18 13:00 Viral Test See Below H 10/21/18 13:00 Virus Analysis Interp See Below 10/21/18 13:00 Microbiology 10/21/18 13:00 Bronchial Washings - Left Fungal Culture - Preliminary Aminta albicans 10/21/18 13:00 Bronchial Washings - Left Gram Stain - Final 10/21/18 13:00 Bronchial Washings - Left Bronchial Washings Culture - Final 10/20/18 00:10 Sputum Gram Stain - Final 10/20/18 00:10 Sputum Sputum Culture - Final 10/21/18 13:00 Bronchial Washings - Left Acid Fast Bacilli Smear - Final 10/21/18 13:00 Bronchial Washings - Left Acid Fast Bacilli Culture - Preliminary 10/18/18 08:20 Sputum Gram Stain - Final 10/18/18 08:20 Sputum Sputum Culture - Final Aminta albicans 10/13/18 23:47 Blood Blood Culture - Final No Growth after 144 hours 10/13/18 18:06 Urine,Voided Urine Culture - Final Assessment and Plan (1) Paroxysmal atrial fibrillation with rapid ventricular response Current Visit: Yes Status: Acute Code(s): I48.0 - PAROXYSMAL ATRIAL FIBRILLATION SNOMED Code(s): 678000736 (2) Bilateral pneumonia Narrative/Plan: 58-year-old female presents to hospital with a several-day history of increasing illness this is high-grade fever chills or malaise and cough without much sputum production. There is evidence of pneumonia minimally by chest x-ray the patient was remaining very ill with fevers of 103 despite antibiotic therapy. A consult was requested and at that time antibiotic therapy was altered to cover for gram negatives including Pseudomonas as well as resistant gram-positive pathogen such as MRSA and vancomycin was added. For fever Toradol was added given the normal renal function and there is no evidence of improvement of how the patient is feeling with this. Fevers have trended to improvement. Will allow further doses of Toradol Renal function to be followed The patient is requiring oxygen therapy and this is being monitored also. Blood glucoses are being monitored. Leukocytosis is trending to improvement Diarrhea did occur and C. diff testing was negative. Lomotil be requested to improve some diarrhea patient encouraged to utilize yogurt with meals. 10/17/2018 is noted the patient had acute worsening of her status with recurrent fever to 103 with the development of atrial fibrillation with rapid ventricular response and transferred to intensive care unit. She's been seen by pulmonary critical care. If there is no further improvement will consider bronchoscopy. Her fever has now resolved and she feels just minimally better. Does complain of a significant oral discomfort cool solution requested 10/18/2018 he shouldn't is improved today. She is less short of breath. The subdural discomfort is improved and has done well with the cool solution. She is eating today. There is no further fever or chills Pruritic chest discomforts have improved She is starting to mobilize some secretions which has helped her shortness of breath. Appetite poor but she is eating without difficulty Continue current antibiotic therapy, no plans for bronchoscopy at this time 10/19/2018 patient has had some further improvement. She is less short of breath. She is on less oxygen. She's having no further fevers. Mobilizing secretions better. Appetite is adequate. Leukocytosis is improving. She had an increase of her creatinine to 1.15 and ketorolac has been discontinued. Vancomycin levels being monitored closely regarding the treatment of her extens bridget pneumonia. 10/20/2018 is noted the patient is now had worsening of her status with respiratory failure requiring intubation sedation and mechanical ventilation. She is being followed by pulmonary critical care, with her marked alteration is status bronchoscopy would be helpful for further deep specimens giving all the negative culture so far. Given the lack of any positive blood cultures and no evidence of any resistant gram-positive pathogens, and with the increasing creatinine we'll discontinue vancomycin at this point in time and monitor. 10/21/2018 patient remains intubated state and mechanically ventilated however is now had bronchoscopy performed. Hopefully will have in addition to therapeutic response a diagnostic response which will further help course of therapy. Creatinine is up to 1.61 vancomycin was discontinued yesterday. We'll monitor cultures for any further needs. Legionella was negative. 10/24/2018 is noted the patient developed respiratory failure requiring intubation sedation and mechanical ventilation. She also had atrial fibrillation requiring intravenous amiodarone and was hypotensive requiring vasopressor therapy. There is not improvement she is off of vasopressor therapy, and amiodarone has been transitioned to oral. Her blood pressure and heart rate have improved. Respiratory status remains such that she is on FiO2 55% and PEEP of 8. If there is no rapid improvement she will likely transition to tracheostomy and PEG tube soon to allow for long-term weaning solution in this bout of primary respiratory failure., Complicated by underlying cardiac dysrhythmia which has improved. Only adenovirus has come back as a positive no other pathogens were detected up till this point in time. 10/25/2018 patient Little change of her status isnow on a peep of 12. Case is discussed with pulmonary critical care. If she does not have rapid improvement will likely proceed onto tracheostomy and PEG tube placement for long-term weaning. Bronchoscopy specimens are still finishing in the microbiology lab. No pathogens found so far other than adenovirus. We'll complete a course of Zosyn, vancomycin was discontinued with no evidence of any resistant gram- positive pathogens. 10/28/2018 patient is now had tracheostomy and PEG tube placed given her ongoing respiratory failure. Likely transition to a later facility in the near future. Cardiac dysrhythmia is stable at this time but she is on PEEP of 12. This makes a follow-up computed tomography scan somewhat difficult at this point in time. We'll complete the course of antibiotic therapy, await any new cultures. Current Visit: Yes Status: Acute Code(s): J18.9 - PNEUMONIA, UNSPECIFIED ORGANISM SNOMED Code(s): 199820740 (3) Fever Current Visit: Yes Status: Acute Code(s): R50.9 - FEVER, UNSPECIFIED SNOMED Code(s): 636599993 (4) Leukocytosis Current Visit: Yes Status: Acute Code(s): D72.829 - ELEVATED WHITE BLOOD CELL COUNT, UNSPECIFIED SNOMED Code(s): 527415780
[2018-10-28 22:14] LABS: Glucose,Whole Blood 163 mg/dL (75-99)
[2018-10-28 23:14] LABS: Glucose,Whole Blood 148 mg/dL (75-99)
[2018-10-29 00:02] LABS: Glucose,Whole Blood 140 mg/dL (75-99)
[2018-10-29] MEDS: methylPREDNISolone SOD SUCCI 125 MG/2 ML VIAL IV SCH ×5 (00:36→23:36)
[2018-10-29 01:00] LABS: Glucose,Whole Blood 140 mg/dL (75-99)
[2018-10-29] MEDS: NOREPINEPHRINE 4 MG in SODIUM CHLORIDE 0.9% 250 ML IV SCH ×2 (01:10→17:03)
[2018-10-29] MEDS: PROPOFOL 1,000 MG in EMPTY BAG 1 BAG IV SCH ×5 (01:25→18:10)
[2018-10-29 02:03] LABS: Glucose,Whole Blood 138 mg/dL (75-99)
[2018-10-29 03:04] LABS: Glucose,Whole Blood 206 mg/dL (75-99)
[2018-10-29] MEDS: IPRATROPIUM-ALBUTEROL 3 ML NEB INHALATION SCH ×6 (03:44→23:26)
[2018-10-29 04:17] LABS: Glucose,Whole Blood 185 mg/dL (75-99)
[2018-10-29 04:31] LABS: ABG Base Excess 1.3 mmol/L; ABG HCO3 27 mmol/L (21-25); ABG Oxygen Saturation 96.4 % (94-97); ABG PCO2 45 mmHg (35-45); ABG PH 7.38 (7.35-7.45); ABG PO2 90 mmHg (83-108); ABG TCO2 28 mmol/L (19-24)
[2018-10-29 04:54] LABS: Glucose,Whole Blood 188 mg/dL (75-99)
[2018-10-29] MEDS: PIPERACILLIN-TAZOBACTAM 3.375 GM in SODIUM CHLORIDE 0.9% 100 ML IVPB SCH (05:09)
[2018-10-29 05:11] LABS: Basophils % (A) 0 %; Eosinophils % (A) 0 %; HCT 33.6 % (34.0-46.0); HGB 10.2 gm/dL (11.4-16.0); Lymphocytes # (A) 0.4 k/uL (1.0-4.8); Lymphocytes % (A) 3 %; MCH 27.9 pg (25.0-35.0); MCHC 30.4 g/dL (31.0-37.0); MCV 91.7 fL (80.0-100.0); Mean Platelet Volume 7.4; Monocytes # (A) 0.4 k/uL (0-1.0); Monocytes % (A) 3 %; Neutrophils # (A) 12.2 k/uL (1.3-7.7); Neutrophils % (A) 93 %; Platelet Count 564 k/uL (150-450); RBC 3.66 m/uL (3.80-5.40); RDW 14.5 % (11.5-15.5)
[2018-10-29 05:31] LABS: Calcium 8.6 mg/dL (8.4-10.2); Potassium 4.7 mmol/L (3.5-5.1); Total Bilirubin 0.5 mg/dL (0.2-1.3); Total Protein 5.5 g/dL (6.3-8.2)
[2018-10-29 06:11] LABS: Glucose,Whole Blood 189 mg/dL (75-99)
--- NOTE | 2018-10-29 06:52 | XR ---
EXAMINATION TYPE: XR chest 1V portable DATE OF EXAM: 10/29/2018 HISTORY: Plueral effusion. REFERENCE: Previous study dated 10/28/2018. FINDINGS: The tracheostomy tube is been placed. Its tip overlies the tracheal air column in this sing le frontal projection. A right basilic PICC line is in place. Its tip is in the superior vena cava. There is increased opacity at the right lung base. This likely represents a combination of pleural fl uid and atelectasis. The heart appears mildly enlarged. The left lung appears clear. I could not excl ude a tiny left effusion. IMPRESSION: NO SIGNIFICANT INTERVAL CHANGE IN THE APPEARANCE OF THE CHEST.
[2018-10-29 07:06] LABS: Glucose,Whole Blood 153 mg/dL (75-99)
[2018-10-29] MEDS: BUDESONIDE 1 MG/2 ML NEBU INHALATION SCH ×2 (07:28→19:26)
[2018-10-29] MEDS: FORMOTEROL FUMARATE 20 MCG/2 ML NEBU INHALATION SCH ×2 (07:28→19:26)
[2018-10-29 08:10] LABS: Glucose,Whole Blood 133 mg/dL (75-99)
[2018-10-29] MEDS ORDERED: DEXTROSE 5% IN WATER 1,000 ML IV ONE (08:34)
--- NOTE | 2018-10-29 08:37 | P.PN ---
Subjective Progress Note Date: 10/29/18 Seen and examined for the follow-up of acute kidney injury. Had tracheostomy done currently on a ventilator. Urine output of 5 L in the last 24 hours. Still has diarrhea. Objective - Vital Signs Vital signs: Vital Signs Temp 98.5 F 10/29/18 04:00 Pulse 78 10/29/18 08:05 Resp 30 H 10/29/18 08:00 BP 148/82 10/28/18 10:00 Pulse Ox 96 10/29/18 08:00 Intake & Output 10/28/18 10/29/18 10/29/18 18:59 06:59 18:59 Intake Total 1034.737 663.011 55.586 Output Total 3715 2220 70 Balance -2680.263 -1556.989 -14.414 Weight 102.9 kg 98.2 kg Intake: IV 720 440 20 Piperacillin-Tazobactam 3 100 200 .375 gm In Sodium Chloride 0.9% 100 ml @ 25 mls/hr IVPB Q8H [facility] Rx#: [id number] Sodium Chloride 0.9% 1, 220 240 20 000 ml @ 20 mls/hr IV . Q24H [facility] Rx#:[id number] Intake, IV Titration 272.737 223.011 35.586 Amount Insulin Regular 100 unit 72.737 23.011 35.586 In Sodium Chloride 0.9% 100 ml @ Per Protocol IV .Q0M [facility] Rx#:[id number] Propofol 1,000 mg In 200 200 Empty Bag 1 bag @ Titrate IV .Q0M [facility] Rx#: [id number] Tube Feeding 42 Output: Urine 3500 2220 70 Stool 200 Estimated Blood Loss 15 Other: Voiding Method Indwelling Catheter Indwelling Catheter ABP, PAP, CO, CI - Last Documented Arterial Blood Pressure 74/41 - Exam No acute distress, on ventilator S1-S2 heard Bilateral air entry Alvarez catheter Edema - Labs CBC & Chem 7: 10/29/18 04:45 10/29/18 04:45 Labs: Abnormal Lab Results - Last 24 Hours (Table) 10/28/18 10/28/18 10/28/18 Range/Units 09:37 11:31 14:43 WBC (3.8-10.6) k/uL RBC (3.80-5.40) m/uL Hgb (11.4-16.0) gm/dL Hct (34.0-46.0) % MCHC (31.0-37.0) g/dL Plt Count (150-450) k/uL Neutrophils # (1.3-7.7) k/uL Lymphocytes # (1.0-4.8) k/uL ABG HCO3 (21-25) mmol/L ABG Total CO2 (19-24) mmol/L Sodium (137-145) mmol/L Chloride (98-107) mmol/L BUN (7-17) mg/dL Creatinine (0.52-1.04) mg/dL Glucose (74-99) mg/dL POC Glucose (mg/dL) 163 H 153 H 132 H (75-99) mg/dL Total Protein (6.3-8.2) g/dL Albumin (3.5-5.0) g/dL 10/28/18 10/28/18 10/28/18 Range/Units 16:07 17:10 18:20 WBC (3.8-10.6) k/uL RBC (3.80-5.40) m/uL Hgb (11.4-16.0) gm/dL Hct (34.0-46.0) % MCHC (31.0-37.0) g/dL Plt Count (150-450) k/uL Neutrophils # (1.3-7.7) k/uL Lymphocytes # (1.0-4.8) k/uL ABG HCO3 (21-25) mmol/L ABG Total CO2 (19-24) mmol/L Sodium (137-145) mmol/L Chloride (98-107) mmol/L BUN (7-17) mg/dL Creatinine (0.52-1.04) mg/dL Glucose (74-99) mg/dL POC Glucose (mg/dL) 176 H 226 H 201 H (75-99) mg/dL Total Protein (6.3-8.2) g/dL Albumin (3.5-5.0) g/dL 10/28/18 10/28/18 10/28/18 Range/Units 20:06 21:01 22:13 WBC (3.8-10.6) k/uL RBC (3.80-5.40) m/uL Hgb (11.4-16.0) gm/dL Hct (34.0-46.0) % MCHC (31.0-37.0) g/dL Plt Count (150-450) k/uL Neutrophils # (1.3-7.7) k/uL Lymphocytes # (1.0-4.8) k/uL ABG HCO3 (21-25) mmol/L ABG Total CO2 (19-24) mmol/L Sodium (137-145) mmol/L Chloride (98-107) mmol/L BUN (7-17) mg/dL Creatinine (0.52-1.04) mg/dL Glucose (74-99) mg/dL POC Glucose (mg/dL) 166 H 152 H 163 H (75-99) mg/dL Total Protein (6.3-8.2) g/dL Albumin (3.5-5.0) g/dL 10/28/18 10/29/18 10/29/18 Range/Units 23:13 00:01 00:57 WBC (3.8-10.6) k/uL RBC (3.80-5.40) m/uL Hgb (11.4-16.0) gm/dL Hct (34.0-46.0) % MCHC (31.0-37.0) g/dL Plt Count (150-450) k/uL Neutrophils # (1.3-7.7) k/uL Lymphocytes # (1.0-4.8) k/uL ABG HCO3 (21-25) mmol/L ABG Total CO2 (19-24) mmol/L Sodium (137-145) mmol/L Chloride (98-107) mmol/L BUN (7-17) mg/dL Creatinine (0.52-1.04) mg/dL Glucose (74-99) mg/dL POC Glucose (mg/dL) 148 H 140 H 140 H (75-99) mg/dL Total Protein (6.3-8.2) g/dL Albumin (3.5-5.0) g/dL 10/29/18 10/29/18 10/29/18 Range/Units 02:01 03:02 04:16 WBC (3.8-10.6) k/uL RBC (3.80-5.40) m/uL Hgb (11.4-16.0) gm/dL Hct (34.0-46.0) % MCHC (31.0-37.0) g/dL Plt Count (150-450) k/uL Neutrophils # (1.3-7.7) k/uL Lymphocytes # (1.0-4.8) k/uL ABG HCO3 (21-25) mmol/L ABG Total CO2 (19-24) mmol/L Sodium (137-145) mmol/L Chloride (98-107) mmol/L BUN (7-17) mg/dL Creatinine (0.52-1.04) mg/dL Glucose (74-99) mg/dL POC Glucose (mg/dL) 138 H 206 H 185 H (75-99) mg/dL Total Protein (6.3-8.2) g/dL Albumin (3.5-5.0) g/dL 10/29/18 10/29/18 10/29/18 Range/Units 04:30 04:45 04:45 WBC 13.0 H (3.8-10.6) k/uL RBC 3.66 L (3.80-5.40) m/uL Hgb 10.2 L (11.4-16.0) gm/dL Hct 33.6 L (34.0-46.0) % MCHC 30.4 L (31.0-37.0) g/dL Plt Count 564 H (150-450) k/uL Neutrophils # 12.2 H (1.3-7.7) k/uL Lymphocytes # 0.4 L (1.0-4.8) k/uL ABG HCO3 27 H (21-25) mmol/L ABG Total CO2 28 H (19-24) mmol/L Sodium 147 H (137-145) mmol/L Chloride 113 H (98-107) mmol/L BUN 65 H (7-17) mg/dL Creatinine 1.45 H (0.52-1.04) mg/dL Glucose 188 H (74-99) mg/dL POC Glucose (mg/dL) (75-99) mg/dL Total Protein 5.5 L (6.3-8.2) g/dL Albumin 3.0 L (3.5-5.0) g/dL 10/29/18 10/29/18 10/29/18 Range/Units 04:52 06:10 07:05 WBC (3.8-10.6) k/uL RBC (3.80-5.40) m/uL Hgb (11.4-16.0) gm/dL Hct (34.0-46.0) % MCHC (31.0-37.0) g/dL Plt Count (150-450) k/uL Neutrophils # (1.3-7.7) k/uL Lymphocytes # (1.0-4.8) k/uL ABG HCO3 (21-25) mmol/L ABG Total CO2 (19-24) mmol/L Sodium (137-145) mmol/L Chloride (98-107) mmol/L BUN (7-17) mg/dL Creatinine (0.52-1.04) mg/dL Glucose (74-99) mg/dL POC Glucose (mg/dL) 188 H 189 H 153 H (75-99) mg/dL Total Protein (6.3-8.2) g/dL Albumin (3.5-5.0) g/dL 10/29/18 Range/Units 08:08 WBC (3.8-10.6) k/uL RBC (3.80-5.40) m/uL Hgb (11.4-16.0) gm/dL Hct (34.0-46.0) % MCHC (31.0-37.0) g/dL Plt Count (150-450) k/uL Neutrophils # (1.3-7.7) k/uL Lymphocytes # (1.0-4.8) k/uL ABG HCO3 (21-25) mmol/L ABG Total CO2 (19-24) mmol/L Sodium (137-145) mmol/L Chloride (98-107) mmol/L BUN (7-17) mg/dL Creatinine (0.52-1.04) mg/dL Glucose (74-99) mg/dL POC Glucose (mg/dL) 133 H (75-99) mg/dL Total Protein (6.3-8.2) g/dL Albumin (3.5-5.0) g/dL Assessment and Plan Assessment: #1 nonoliguric acute kidney injury secondary to ischemic ATN. Creatinine currently stable. #2 septic shock secondary to pneumonia, off levo fed. Resolved #3 A. fib with RVR, rate controlled #4 metabolic acidosis resolved. #5 diarrhea, C. diff negative #6 edema #7 hypertension. Goal 120-140/90 Plan: #1 creatinine stable, with hypernatremia and D5 water at 50 ML's an hour #2 change all fluids which includes normal saline to D5 water. #3 avoid nephrotoxic agents and hypotensive episodes.
[2018-10-29] MEDS: METOPROLOL TARTRATE 25 MG TAB PO SCH ×2 (08:52→20:02)
[2018-10-29] MEDS: AMIODARONE 200 MG TAB PO SCH ×2 (08:52→20:02)
[2018-10-29] MEDS: CHLORHEXIDINE GLUCONATE 15 ML CUP MUCOUS MEM SCH ×2 (08:52→20:02)
[2018-10-29] MEDS: MAG HYDROX/AL HYDROX/SIMETH 30 ML, LIDOCAINE VISCOUS 30 ML, NYSTATIN 100,000 UNIT/ML SU... PO SCH ×12 (08:52→22:00)
[2018-10-29] MEDS: MAGNESIUM OXIDE 400 MG TAB PO SCH (08:52)
[2018-10-29] MEDS: PANTOPRAZOLE 40 MG/10 ML VIAL IVP SCH ×2 (08:52→20:01)
[2018-10-29] MEDS: amLODIPine 2.5 MG TAB PO SCH (08:55)
[2018-10-29 09:07] LABS: Glucose,Whole Blood 157 mg/dL (75-99)
[2018-10-29] MEDS: HYDROmorphone 1 MG/ML 1 ML SYRINGE IVP PRN ×4 (09:22→20:48)
[2018-10-29 10:17] LABS: Glucose,Whole Blood 169 mg/dL (75-99)
--- NOTE | 2018-10-29 10:29 | PN ---
PROGRESS NOTE Mrs. Cota had a tracheostomy and PEG tube yesterday. She is in sinus rhythm, deeply sedated. Hemodynamically stable. S1-S2 heard normally. Lungs reveal bilateral air entry assisted by the ventilator. Abdomen and lower extremity exam unchanged. Central nervous system exam was not performed. I am recommending that we continue the same dose of amiodarone at 400 mg b.i.d. for another couple of days and then decrease it to 200 mg b.i.d. No other new suggestions from a cardiac standpoint. MMODL / IJN: [id number] /
--- NOTE | 2018-10-29 11:14 | P.PN ---
Subjective Progress Note Date: 10/29/18 CHIEF COMPLAINT: Protein malnutrition and respiratory failure HISTORY OF PRESENT ILLNESS: The patient is a 58-year-old female postop day 1 status post tracheostomy and gastrostomy tube placement. Her family is at bedside. Patient is on full ventilatory support. ROS: No reports of nausea and vomiting. No fevers or chills. No new chest pain. No productive sputum PHYSICAL EXAM: VITAL SIGNS: Reviewed CONSTITUTIONAL: Well developed and in no acute distress. EYES: Conjuctivae without sclera icterus. Extraocular movements grossly intact. HEAD, EARS, NOSE, THROAT: Moist buccal mucosa. Head is atraumatic, normocephalic. Hears conversational speech. No nasal drainage. NECK: Dressings are clean, dry, and intact along tracheostomy site. RESPIRATORY: Non-labored respirations and equal bilateral excursions on mechanical ventilator. CARDIOVASCULAR: Palpable 2+ radial pulses. ABDOMEN: Soft nontender. MUSCULOSKELETAL: No gross deformity of the lower extremities noted. No clubbing. No cyanosis. SKIN: Good skin turgor. Well perfused. NEUROLOGIC: No focal or lateralizing signs. PSYCH: Alert to self. CLINCAL LABS: White blood cell count elevated over 13,000 ASSESSMENT: 1. Respiratory failure, acute 2. Status post tracheostomy 3. Inadequate protein intake, protein malnutrition status post gastrostomy tube placement PLAN: 1. Tube feeds management per blow-by dietitian. 2. Ventilatory management per critical care team. 3. IV antibiotics for leukocytosis 4. Continue ICU management. Objective - Vital Signs Vital signs: Vital Signs Temp 98.5 F 10/29/18 09:00 Pulse 75 10/29/18 10:00 Resp 23 10/29/18 10:00 BP 148/82 10/28/18 10:00 Pulse Ox 96 10/29/18 10:00 Intake & Output 10/28/18 10/29/18 10/29/18 18:59 06:59 18:59 Intake Total 1034.737 663.011 380.398 Output Total 3715 2220 230 Balance -2680.263 -1556.989 150.398 Weight 102.9 kg 98.2 kg Intake: IV 720 440 140 Dextrose 5% in Water 1, 100 000 ml @ 50 mls/hr IV . Q20H [facility] Rx#:[id number] Piperacillin-Tazobactam 3 100 200 .375 gm In Sodium Chloride 0.9% 100 ml @ 25 mls/hr IVPB Q8H [facility] Rx#: [id number] Sodium Chloride 0.9% 1, 220 240 40 000 ml @ 20 mls/hr IV . Q24H [facility] Rx#:[id number] Intake, IV Titration 272.737 223.011 100.398 Amount Insulin Regular 100 unit 72.737 23.011 35.586 In Sodium Chloride 0.9% 100 ml @ Per Protocol IV .Q0M [facility] Rx#:[id number] Propofol 1,000 mg In 200 200 64.812 Empty Bag 1 bag @ Titrate IV .Q0M [facility] Rx#: [id number] Tube Feeding 42 40 Other 100 Output: Urine 3500 2220 230 Stool 200 Estimated Blood Loss 15 Other: Voiding Method Indwelling Catheter Indwelling Catheter Indwelling Catheter ABP, PAP, CO, CI - Last Documented Arterial Blood Pressure 136/68 - Labs CBC & Chem 7: 10/29/18 04:45 10/29/18 04:45 Labs: Abnormal Lab Results - Last 24 Hours (Table) 10/28/18 10/28/18 10/28/18 Range/Units 11:31 14:43 16:07 WBC (3.8-10.6) k/uL RBC (3.80-5.40) m/uL Hgb (11.4-16.0) gm/dL Hct (34.0-46.0) % MCHC (31.0-37.0) g/dL Plt Count (150-450) k/uL Neutrophils # (1.3-7.7) k/uL Lymphocytes # (1.0-4.8) k/uL ABG HCO3 (21-25) mmol/L ABG Total CO2 (19-24) mmol/L Sodium (137-145) mmol/L Chloride (98-107) mmol/L BUN (7-17) mg/dL Creatinine (0.52-1.04) mg/dL Glucose (74-99) mg/dL POC Glucose (mg/dL) 153 H 132 H 176 H (75-99) mg/dL Total Protein (6.3-8.2) g/dL Albumin (3.5-5.0) g/dL 10/28/18 10/28/18 10/28/18 Range/Units 17:10 18:20 20:06 WBC (3.8-10.6) k/uL RBC (3.80-5.40) m/uL Hgb (11.4-16.0) gm/dL Hct (34.0-46.0) % MCHC (31.0-37.0) g/dL Plt Count (150-450) k/uL Neutrophils # (1.3-7.7) k/uL Lymphocytes # (1.0-4.8) k/uL ABG HCO3 (21-25) mmol/L ABG Total CO2 (19-24) mmol/L Sodium (137-145) mmol/L Chloride (98-107) mmol/L BUN (7-17) mg/dL Creatinine (0.52-1.04) mg/dL Glucose (74-99) mg/dL POC Glucose (mg/dL) 226 H 201 H 166 H (75-99) mg/dL Total Protein (6.3-8.2) g/dL Albumin (3.5-5.0) g/dL 10/28/18 10/28/18 10/28/18 Range/Units 21:01 22:13 23:13 WBC (3.8-10.6) k/uL RBC (3.80-5.40) m/uL Hgb (11.4-16.0) gm/dL Hct (34.0-46.0) % MCHC (31.0-37.0) g/dL Plt Count (150-450) k/uL Neutrophils # (1.3-7.7) k/uL Lymphocytes # (1.0-4.8) k/uL ABG HCO3 (21-25) mmol/L ABG Total CO2 (19-24) mmol/L Sodium (137-145) mmol/L Chloride (98-107) mmol/L BUN (7-17) mg/dL Creatinine (0.52-1.04) mg/dL Glucose (74-99) mg/dL POC Glucose (mg/dL) 152 H 163 H 148 H (75-99) mg/dL Total Protein (6.3-8.2) g/dL Albumin (3.5-5.0) g/dL 10/29/18 10/29/18 10/29/18 Range/Units 00:01 00:57 02:01 WBC (3.8-10.6) k/uL RBC (3.80-5.40) m/uL Hgb (11.4-16.0) gm/dL Hct (34.0-46.0) % MCHC (31.0-37.0) g/dL Plt Count (150-450) k/uL Neutrophils # (1.3-7.7) k/uL Lymphocytes # (1.0-4.8) k/uL ABG HCO3 (21-25) mmol/L ABG Total CO2 (19-24) mmol/L Sodium (137-145) mmol/L Chloride (98-107) mmol/L BUN (7-17) mg/dL Creatinine (0.52-1.04) mg/dL Glucose (74-99) mg/dL POC Glucose (mg/dL) 140 H 140 H 138 H (75-99) mg/dL Total Protein (6.3-8.2) g/dL Albumin (3.5-5.0) g/dL 10/29/18 10/29/18 10/29/18 Range/Units 03:02 04:16 04:30 WBC (3.8-10.6) k/uL RBC (3.80-5.40) m/uL Hgb (11.4-16.0) gm/dL Hct (34.0-46.0) % MCHC (31.0-37.0) g/dL Plt Count (150-450) k/uL Neutrophils # (1.3-7.7) k/uL Lymphocytes # (1.0-4.8) k/uL ABG HCO3 27 H (21-25) mmol/L ABG Total CO2 28 H (19-24) mmol/L Sodium (137-145) mmol/L Chloride (98-107) mmol/L BUN (7-17) mg/dL Creatinine (0.52-1.04) mg/dL Glucose (74-99) mg/dL POC Glucose (mg/dL) 206 H 185 H (75-99) mg/dL Total Protein (6.3-8.2) g/dL Albumin (3.5-5.0) g/dL 10/29/18 10/29/18 10/29/18 Range/Units 04:45 04:45 04:52 WBC 13.0 H (3.8-10.6) k/uL RBC 3.66 L (3.80-5.40) m/uL Hgb 10.2 L (11.4-16.0) gm/dL Hct 33.6 L (34.0-46.0) % MCHC 30.4 L (31.0-37.0) g/dL Plt Count 564 H (150-450) k/uL Neutrophils # 12.2 H (1.3-7.7) k/uL Lymphocytes # 0.4 L (1.0-4.8) k/uL ABG HCO3 (21-25) mmol/L ABG Total CO2 (19-24) mmol/L Sodium 147 H (137-145) mmol/L Chloride 113 H (98-107) mmol/L BUN 65 H (7-17) mg/dL Creatinine 1.45 H (0.52-1.04) mg/dL Glucose 188 H (74-99) mg/dL POC Glucose (mg/dL) 188 H (75-99) mg/dL Total Protein 5.5 L (6.3-8.2) g/dL Albumin 3.0 L (3.5-5.0) g/dL 10/29/18 10/29/18 10/29/18 Range/Units 06:10 07:05 08:08 WBC (3.8-10.6) k/uL RBC (3.80-5.40) m/uL Hgb (11.4-16.0) gm/dL Hct (34.0-46.0) % MCHC (31.0-37.0) g/dL Plt Count (150-450) k/uL Neutrophils # (1.3-7.7) k/uL Lymphocytes # (1.0-4.8) k/uL ABG HCO3 (21-25) mmol/L ABG Total CO2 (19-24) mmol/L Sodium (137-145) mmol/L Chloride (98-107) mmol/L BUN (7-17) mg/dL Creatinine (0.52-1.04) mg/dL Glucose (74-99) mg/dL POC Glucose (mg/dL) 189 H 153 H 133 H (75-99) mg/dL Total Protein (6.3-8.2) g/dL Albumin (3.5-5.0) g/dL 10/29/18 10/29/18 Range/Units 09:05 10:07 WBC (3.8-10.6) k/uL RBC (3.80-5.40) m/uL Hgb (11.4-16.0) gm/dL Hct (34.0-46.0) % MCHC (31.0-37.0) g/dL Plt Count (150-450) k/uL Neutrophils # (1.3-7.7) k/uL Lymphocytes # (1.0-4.8) k/uL ABG HCO3 (21-25) mmol/L ABG Total CO2 (19-24) mmol/L Sodium (137-145) mmol/L Chloride (98-107) mmol/L BUN (7-17) mg/dL Creatinine (0.52-1.04) mg/dL Glucose (74-99) mg/dL POC Glucose (mg/dL) 157 H 169 H (75-99) mg/dL Total Protein (6.3-8.2) g/dL Albumin (3.5-5.0) g/dL
[2018-10-29 11:21] LABS: Glucose,Whole Blood 199 mg/dL (75-99)
[2018-10-29 12:04] LABS: Glucose,Whole Blood 181 mg/dL (75-99)
--- NOTE | 2018-10-29 12:35 | PN ---
PROGRESS NOTE DATE OF SERVICE: October 29, 2018 Critical care time 34 minutes. HISTORY: 58-year-old female admitted back on October 14 with an episode of sepsis and pneumonia. On October 19, she developed acute hypoxemic respiratory failure and was intubated and mechanically ventilated. Because of failure to wean, yesterday on October 28, she had a tracheostomy and PEG tube performed by Dr. Kevin Fung. The patient remains on the VC plus modality. This is also referred to as pressure regulated volume control. Her inspiratory time is 1 second, targeted tidal volume is 350, respiratory rate 30, FiO2 50%, PEEP of 12. Blood gases show PO2 of 90, pCO2 45, and pH is 7.38. The patient is also on Vital AF at 20 with a goal of 42, D5W at 50 mL an hour, propofol at 20 mcg/kg per per minute and insulin drip of 4 units an hour. The plan is to hopefully get her off to [facility] sometime next week. The patient otherwise is doing about the same. PHYSICAL EXAMINATION: VITAL SIGNS: Current vital signs are reviewed. Temperature 98.5, heart rate 75, respiratory rate 23, blood pressure 136/68, and saturations are 96 or 97% on 50% and 12 of PEEP. Appears in no acute distress. Currently sedated. HEENT examination is grossly unremarkable. NECK: Supple. Full range of motion. There is midline tracheostomy. No adenopathy or thyromegaly. Neck veins are flat. CARDIOVASCULAR examination reveals regular rhythm and rate. Heart rate 75. LUNGS: Some coarse rhonchi and crackles. No wheezes. Breath sounds equal bilaterally. ABDOMEN: Soft. Bowel sounds are not noted. Extremities are intact. Minimal edema. Skin without rash. NEUROLOGIC examination could not be adequately assessed as the patient is currently sedated. Microbiologic data is thus far all negative. Labs are reviewed. White count is 13, hemoglobin 10.2, hematocrit 33.6, platelet count 564,000. Sodium 147, potassium 4.7, chloride 113, CO2 of 27, anion gap is 7, BUN and creatinine were 65 and 1.45. The rest of the labs look okay. A chest x-ray was done on October 29. Shows increased opacity at the right lung base. There is some atelectasis and pleural effusion on the right side. There is also some atelectasis at the left lung base. It is certainly not near as much as on the right side. Medications are reviewed. She is on all appropriate medications at this time. ASSESSMENT: 1. Acute hypoxemic hypercapnic respiratory failure secondary to bilateral pneumonia, right greater than left, which required intubation and mechanical ventilation on October 19. 2. Subsequent bronchoscopy with negative culture data on October 21. 3. Status post tracheostomy and PEG tube placement postop day number 1, on October 28, for failure to wean. 4. History of sepsis and pneumonia. 5. Hypotension, secondary to sepsis, resolved. 6. Type 2 diabetes mellitus. 7. History of chronic obstructive pulmonary disease/asthma. 8. History of small right-sided pleural effusion. 9. Multiple other medical problems and comorbidities. PLAN: The patient is postop day #1 status post tracheostomy and PEG tube placement. We cut back on her propofol 20 mcg/kg per per minute. We are going to start her back on tube feeds. Her goal is 42 mL an hour. She remains on the VC plus modality. Her culture data is so far all negative. She is on antibiotics. We will continue to follow. I have asked the nurse to put a consult in for [facility] for some time next week. Additional recommendations and suggestions forthcoming. Prognosis is guarded. Critical care time 34 minutes. MMODL / IJN: [id number] /
[2018-10-29 12:58] LABS: Glucose,Whole Blood 190 mg/dL (75-99)
[2018-10-29 14:13] LABS: Glucose,Whole Blood 193 mg/dL (75-99)
[2018-10-29 15:04] LABS: Glucose,Whole Blood 211 mg/dL (75-99)
[2018-10-29] MEDS: INSULIN REGULAR 100 UNIT in SODIUM CHLORIDE 0.9% 100 ML IV SCH (15:05)
[2018-10-29 16:08] LABS: Glucose,Whole Blood 171 mg/dL (75-99)
[2018-10-29 17:25] LABS: Glucose,Whole Blood 180 mg/dL (75-99)
[2018-10-29 17:56] LABS: Glucose,Whole Blood 101 mg/dL (75-99)
[2018-10-29 18:59] LABS: Glucose,Whole Blood 198 mg/dL (75-99)
[2018-10-29] MEDS: MONTELUKAST 10 MG TAB PO SCH (20:02)
[2018-10-29] MEDS: ATORVASTATIN 40 MG TAB PO SCH (20:02)
[2018-10-29 20:03] LABS: Glucose,Whole Blood 241 mg/dL (75-99)
[2018-10-29] MEDS: SERTRALINE 50 MG TAB PO SCH (20:03)
[2018-10-29 21:19] LABS: Glucose,Whole Blood 191 mg/dL (75-99)
[2018-10-29 22:00] LABS: Glucose,Whole Blood 181 mg/dL (75-99)
--- NOTE | 2018-10-29 22:31 | P.PN ---
Subjective Progress Note Date: 10/29/18 58 -year-old female with history of diabetes mellitus type 2 generally is completely independent relates to approximate 4 day history of feeling poorly. She started to feel fever chills generalized malaise cough with yellowish sputum production and no hemoptysis. Her fever increased she felt w eak and confused and was brought to the emergency center. There she has not evidence of a high-grade fever leukocytosis and sepsis as well as atrial fibrillation, she was treated with a dose of Cardizem with hydration and resolution of her A. fib. The patient continued to feel ill continue to have ongoing fevers because of the consult was requested. At the time of the consult antibiotic therapy was altered and anti-inflammatory with Toradol was requested and the patient is feeling considerably better today. After the first dorsal Toradol her sugar went from 103.5-99.5. The highest it's been so far today is 101.5. Patient does feel poorly still. She has shortness of breath or oxygen therapy she has cough without much sputum production or hemoptysis does have discomfort in her chest with coughing. 10/17/2018 the patient had significant worsening of her status overnight. She developed atrial fibrillation with a rapid ventricular response and was brought to the intensive care unit has been treated with Cardizem and amiodarone. She has had an improvement of her cardiac dysrhythmia and is somewhat less short of breath. She had further fever which is now much improved since her transfer to the intensive care unit. She relates she still feels poorly but better than last night. She is not having chest pain. No chills or rigors are occurring at this time. 10/18/2018 patient is now feeling somewhat better. She is much less short of breath. Fevers have resolved. Cardiac dysrhythmia has improved. Leukocytosis is also improving. 10/19/2018 has further improvement. She is however quite sleepy today. Atrial fibrillation is improved. Leukocytosis improving. Appetite still somewhat poor and other than fatigue has improved. 10/20/2018 the patient now has a significant worsening of her status. She really developed respiratory failure last evening her current intubation sedation mechanical ventilation in addition of vasopressor therapy. She's been seen by pulmonary critical care. Her significant cardiac dysrhythmia does seem to be more stable at this time. Oxygenation is improved. Renal failure has worsened. 10/21/2018 the patient has had little change in her status. However bronchoscopy has been performed for further treatment and diagnosis of her pneumonia and respiratory failure. She tolerated the procedure well only 2 changes are of renal failure vancomycin has been discontinued at this time pending further culture results. She's had one further fever overnight of 101.1 better today. Leukocytosis is improving. No other new acute changes 10/24/2018 patient has had some ventilator changes today. She is afebrile. Is no longer on vasopressor therapy or IV amiodarone. 10/25/2018 patient remains ventilator dependent. Further changes of ventilator settings have occurred with PEEP now at 12. Positive cultures. Cardiac dysrhythmias improving. Fever has improved. 10/28/2018 patient is remaining ventilator dependent she does have PEEP at 12 it is now had tracheostomy and PEG tube placement given her chronic respiratory failure 10/29/2018 patient continues with respiratory failure is minimally near her tracheostomy. No fevers or other acute changes Objective - Vital Signs Vital signs: Vital Signs Temp 97.7 F 10/29/18 16:00 Pulse 66 10/29/18 22:00 Resp 17 10/29/18 22:00 BP 148/82 10/28/18 10:00 Pulse Ox 96 10/29/18 22:00 Intake & Output 10/29/18 10/29/18 10/30/18 06:59 18:59 06:59 Intake Total 632.533 2419.349 376.445 Output Total 2220 1305 355 Balance -1556.989 -130.651 21.445 Weight 98.2 kg 98.2 kg Intake: IV 440 540 200 Dextrose 5% in Water 1, 500 200 000 ml @ 50 mls/hr IV . Q20H [facility] Rx#:[id number] Piperacillin-Tazobactam 3 200 .375 gm In Sodium Chloride 0.9% 100 ml @ 25 mls/hr IVPB Q8H [facility] Rx#: [id number] Sodium Chloride 0.9% 1, 240 40 000 ml @ 20 mls/hr IV . Q24H [facility] Rx#:[id number] Intake, IV Titration 223.011 264.349 26.445 Amount Insulin Regular 100 unit 23.011 92.499 26.445 In Sodium Chloride 0.9% 100 ml @ Per Protocol IV .Q0M [facility] Rx#:[id number] Propofol 1,000 mg In 200 171.850 Empty Bag 1 bag @ Titrate IV .Q0M [facility] Rx#: [id number] Tube Feeding 210 120 Other 160 30 Output: Urine 2220 905 355 Stool 400 Other: Voiding Method Indwelling Catheter Indwelling Catheter ABP, PAP, CO, CI - Last Documented Arterial Blood Pressure 146/71 - Exam 58 -year-old woman, has now had tracheostomy placed remains mechanically ventilated HEENT: Anicteric conjunctiva are pink and moist nasal mucosa grossly intact without significant lesions, there is no thrush. Trach site without bleeding Neck: The neck is supple without significant lymphadenopathy or thyromegaly. Lungs: Symmetrical bilateral air entry,there is some evidence of air entry with some crackles noted a few crackles at the right posterior mid zone, posterior left lower zone also with crackles no distinct egophony nor dullness in either area some expiratory wheezes are scattered Heart: Rhythm is regular with an audible S1-S2, no S3 no S4. There is no significant murmur click or rub, PMI was nondisplaced. Abdomen: Obese, Positive bowel sounds soft and nontender without palpable masses or organomegaly. There was no guarding or rebound. PEG is now been applied and dressing is intact now just postsurgical Extremities: The upper extremities have excellent pulses they are symmetric, no significant petechiae or telangiectasia. No splinter hemorrhages were noted. His also lower extremity edema no open ulcerations Neuro: She is sedated and mechanically ventilated - Labs CBC & Chem 7: 10/29/18 04:45 10/29/18 04:45 Labs: Abnormal Lab Results - Last 24 Hours (Table) 10/28/18 10/29/18 10/29/18 Range/Units 23:13 00:01 00:57 WBC (3.8-10.6) k/uL RBC (3.80-5.40) m/uL Hgb (11.4-16.0) gm/dL Hct (34.0-46.0) % MCHC (31.0-37.0) g/dL Plt Count (150-450) k/uL Neutrophils # (1.3-7.7) k/uL Lymphocytes # (1.0-4.8) k/uL ABG HCO3 (21-25) mmol/L ABG Total CO2 (19-24) mmol/L Sodium (137-145) mmol/L Chloride (98-107) mmol/L BUN (7-17) mg/dL Creatinine (0.52-1.04) mg/dL Glucose (74-99) mg/dL POC Glucose (mg/dL) 148 H 140 H 140 H (75-99) mg/dL Total Protein (6.3-8.2) g/dL Albumin (3.5-5.0) g/dL 10/29/18 10/29/18 10/29/18 Range/Units 02:01 03:02 04:16 WBC (3.8-10.6) k/uL RBC (3.80-5.40) m/uL Hgb (11.4-16.0) gm/dL Hct (34.0-46.0) % MCHC (31.0-37.0) g/dL Plt Count (150-450) k/uL Neutrophils # (1.3-7.7) k/uL Lymphocytes # (1.0-4.8) k/uL ABG HCO3 (21-25) mmol/L ABG Total CO2 (19-24) mmol/L Sodium (137-145) mmol/L Chloride (98-107) mmol/L BUN (7-17) mg/dL Creatinine (0.52-1.04) mg/dL Glucose (74-99) mg/dL POC Glucose (mg/dL) 138 H 206 H 185 H (75-99) mg/dL Total Protein (6.3-8.2) g/dL Albumin (3.5-5.0) g/dL 10/29/18 10/29/18 10/29/18 Range/Units 04:30 04:45 04:45 WBC 13.0 H (3.8-10.6) k/uL RBC 3.66 L (3.80-5.40) m/uL Hgb 10.2 L (11.4-16.0) gm/dL Hct 33.6 L (34.0-46.0) % MCHC 30.4 L (31.0-37.0) g/dL Plt Count 564 H (150-450) k/uL Neutrophils # 12.2 H (1.3-7.7) k/uL Lymphocytes # 0.4 L (1.0-4.8) k/uL ABG HCO3 27 H (21-25) mmol/L ABG Total CO2 28 H (19-24) mmol/L Sodium 147 H (137-145) mmol/L Chloride 113 H (98-107) mmol/L BUN 65 H (7-17) mg/dL Creatinine 1.45 H (0.52-1.04) mg/dL Glucose 188 H (74-99) mg/dL POC Glucose (mg/dL) (75-99) mg/dL Total Protein 5.5 L (6.3-8.2) g/dL Albumin 3.0 L (3.5-5.0) g/dL 10/29/18 10/29/18 10/29/18 Range/Units 04:52 06:10 07:05 WBC (3.8-10.6) k/uL RBC (3.80-5.40) m/uL Hgb (11.4-16.0) gm/dL Hct (34.0-46.0) % MCHC (31.0-37.0) g/dL Plt Count (150-450) k/uL Neutrophils # (1.3-7.7) k/uL Lymphocytes # (1.0-4.8) k/uL ABG HCO3 (21-25) mmol/L ABG Total CO2 (19-24) mmol/L Sodium (137-145) mmol/L Chloride (98-107) mmol/L BUN (7-17) mg/dL Creatinine (0.52-1.04) mg/dL Glucose (74-99) mg/dL POC Glucose (mg/dL) 188 H 189 H 153 H (75-99) mg/dL Total Protein (6.3-8.2) g/dL Albumin (3.5-5.0) g/dL 10/29/18 10/29/18 10/29/18 Range/Units 08:08 09:05 10:07 WBC (3.8-10.6) k/uL RBC (3.80-5.40) m/uL Hgb (11.4-16.0) gm/dL Hct (34.0-46.0) % MCHC (31.0-37.0) g/dL Plt Count (150-450) k/uL Neutrophils # (1.3-7.7) k/uL Lymphocytes # (1.0-4.8) k/uL ABG HCO3 (21-25) mmol/L ABG Total CO2 (19-24) mmol/L Sodium (137-145) mmol/L Chloride (98-107) mmol/L BUN (7-17) mg/dL Creatinine (0.52-1.04) mg/dL Glucose (74-99) mg/dL POC Glucose (mg/dL) 133 H 157 H 169 H (75-99) mg/dL Total Protein (6.3-8.2) g/dL Albumin (3.5-5.0) g/dL 10/29/18 10/29/18 10/29/18 Range/Units 11:19 12:03 12:56 WBC (3.8-10.6) k/uL RBC (3.80-5.40) m/uL Hgb (11.4-16.0) gm/dL Hct (34.0-46.0) % MCHC (31.0-37.0) g/dL Plt Count (150-450) k/uL Neutrophils # (1.3-7.7) k/uL Lymphocytes # (1.0-4.8) k/uL ABG HCO3 (21-25) mmol/L ABG Total CO2 (19-24) mmol/L Sodium (137-145) mmol/L Chloride (98-107) mmol/L BUN (7-17) mg/dL Creatinine (0.52-1.04) mg/dL Glucose (74-99) mg/dL POC Glucose (mg/dL) 199 H 181 H 190 H (75-99) mg/dL Total Protein (6.3-8.2) g/dL Albumin (3.5-5.0) g/dL 10/29/18 10/29/18 10/29/18 Range/Units 14:10 15:02 16:07 WBC (3.8-10.6) k/uL RBC (3.80-5.40) m/uL Hgb (11.4-16.0) gm/dL Hct (34.0-46.0) % MCHC (31.0-37.0) g/dL Plt Count (150-450) k/uL Neutrophils # (1.3-7.7) k/uL Lymphocytes # (1.0-4.8) k/uL ABG HCO3 (21-25) mmol/L ABG Total CO2 (19-24) mmol/L Sodium (137-145) mmol/L Chloride (98-107) mmol/L BUN (7-17) mg/dL Creatinine (0.52-1.04) mg/dL Glucose (74-99) mg/dL POC Glucose (mg/dL) 193 H 211 H 171 H (75-99) mg/dL Total Protein (6.3-8.2) g/dL Albumin (3.5-5.0) g/dL 10/29/18 10/29/18 10/29/18 Range/Units 17:01 17:54 18:57 WBC (3.8-10.6) k/uL RBC (3.80-5.40) m/uL Hgb (11.4-16.0) gm/dL Hct (34.0-46.0) % MCHC (31.0-37.0) g/dL Plt Count (150-450) k/uL Neutrophils # (1.3-7.7) k/uL Lymphocytes # (1.0-4.8) k/uL ABG HCO3 (21-25) mmol/L ABG Total CO2 (19-24) mmol/L Sodium (137-145) mmol/L Chloride (98-107) mmol/L BUN (7-17) mg/dL Creatinine (0.52-1.04) mg/dL Glucose (74-99) mg/dL POC Glucose (mg/dL) 180 H 101 H 198 H (75-99) mg/dL Total Protein (6.3-8.2) g/dL Albumin (3.5-5.0) g/dL 10/29/18 10/29/18 10/29/18 Range/Units 20:01 21:17 21:59 WBC (3.8-10.6) k/uL RBC (3.80-5.40) m/uL Hgb (11.4-16.0) gm/dL Hct (34.0-46.0) % MCHC (31.0-37.0) g/dL Plt Count (150-450) k/uL Neutrophils # (1.3-7.7) k/uL Lymphocytes # (1.0-4.8) k/uL ABG HCO3 (21-25) mmol/L ABG Total CO2 (19-24) mmol/L Sodium (137-145) mmol/L Chloride (98-107) mmol/L BUN (7-17) mg/dL Creatinine (0.52-1.04) mg/dL Glucose (74-99) mg/dL POC Glucose (mg/dL) 241 H 191 H 181 H (75-99) mg/dL Total Protein (6.3-8.2) g/dL Albumin (3.5-5.0) g/dL Laboratory Results WBC 13.0 k/uL (3.8-10.6) H 10/29/18 04:45 RBC 3.66 m/uL (3.80-5.40) L 10/29/18 04:45 Hgb 10.2 gm/dL (11.4-16.0) L 10/29/18 04:45 Hct 33.6 % (34.0-46.0) L 10/29/18 04:45 MCV 91.7 fL (80.0-100.0) 10/29/18 04:45 MCH 27.9 pg (25.0-35.0) 10/29/18 04:45 MCHC 30.4 g/dL (31.0-37.0) L 10/29/18 04:45 RDW 14.5 % (11.5-15.5) 10/29/18 04:45 Plt Count 564 k/uL (150-450) H 10/29/18 04:45 Neutrophils % 93 % 10/29/18 04:45 Lymphocytes % 3 % 10/29/18 04:45 Monocytes % 3 % 10/29/18 04:45 Eosinophils % 0 % 10/29/18 04:45 Basophils % 0 % 10/29/18 04:45 Neutrophils # 12.2 k/uL (1.3-7.7) H 10/29/18 04:45 Lymphocytes # 0.4 k/uL (1.0-4.8) L 10/29/18 04:45 Monocytes # 0.4 k/uL (0-1.0) 10/29/18 04:45 Eosinophils # 0.0 k/uL (0-0.7) 10/29/18 04:45 Basophils # 0.0 k/uL (0-0.2) 10/29/18 04:45 Hypochromasia Slight 10/28/18 05:26 PT 11.4 sec (9.0-12.0) 10/28/18 05:26 INR 1.1 (<1.2) 10/28/18 05:26 APTT 28.8 sec (22.0-30.0) 10/13/18 23:47 Sample Site [place] 10/29/18 04:30 ABG pH 7.38 (7.35-7.45) 10/29/18 04:30 ABG pCO2 45 mmHg (35-45) 10/29/18 04:30 ABG pO2 90 mmHg (83-108) 10/29/18 04:30 ABG HCO3 27 mmol/L (21-25) H 10/29/18 04:30 ABG Total CO2 28 mmol/L (19-24) H 10/29/18 04:30 ABG O2 Saturation 96.4 % (94-97) 10/29/18 04:30 ABG Base Excess 1.3 mmol/L 10/29/18 04:30 Maxime Test n/a 10/29/18 04:30 FiO2 50 % 10/29/18 04:30 Sodium 147 mmol/L (137-145) H 10/29/18 04:45 Potassium 4.7 mmol/L (3.5-5.1) 10/29/18 04:45 Chloride 113 mmol/L (98-107) H 10/29/18 04:45 Carbon Dioxide 27 mmol/L (22-30) 10/29/18 04:45 Anion Gap 7 mmol/L 10/29/18 04:45 BUN 65 mg/dL (7-17) H 10/29/18 04:45 Creatinine 1.45 mg/dL (0.52-1.04) H 10/29/18 04:45 Est GFR (CKD-EPI)AfAm 46 (>60 ml/min/1.73 sqM) 10/29/18 04:45 Est GFR (CKD-EPI)NonAf 39 (>60 ml/min/1.73 sqM) 10/29/18 04:45 Glucose 188 mg/dL (74-99) H 10/29/18 04:45 POC Glucose (mg/dL) 181 mg/dL (75-99) H 10/29/18 21:59 POC Glu Control Electrician ID Livia Alba 10/29/18 21:[address] Glu mg/dL 186 10/15/18 06:32 Hemoglobin A1c 8.1 % (4.0-6.0) H 10/15/18 06:32 Plasma Lactic Acid Bola 0.8 mmol/L (0.7-2.0) 10/16/18 16:53 Calcium 8.6 mg/dL (8.4-10.2) 10/29/18 04:45 Phosphorus 4.1 mg/dL (2.5-4.5) 10/25/18 05:04 Magnesium 2.1 mg/dL (1.6-2.3) 10/25/18 05:04 Total Bilirubin 0.5 mg/dL (0.2-1.3) 10/29/18 04:45 AST 15 U/L (14-36) 10/29/18 04:45 ALT 35 U/L (9-52) 10/29/18 04:45 Alkaline Phosphatase 55 U/L (38-126) 10/29/18 04:45 NT-Pro-B Natriuret Pep 256 pg/mL 10/15/18 06:32 Total Protein 5.5 g/dL (6.3-8.2) L 10/29/18 04:45 Albumin 3.0 g/dL (3.5-5.0) L 10/29/18 04:45 Amylase 83 U/L (30-110) 10/20/18 06:04 Lipase 190 U/L (23-300) 10/20/18 06:04 Urine Color Light Yellow 10/20/18 01:00 Urine Appearance Cloudy (Clear) H 10/20/18 01:00 Urine pH 5.5 (5.0-8.0) 10/20/18 01:00 Ur Specific [place] 1.011 (1.001-1.035) 10/20/18 01:00 Urine Protein 1+ (Negative) H 10/20/18 01:00 Urine Glucose (UA) Negative (Negative) 10/20/18 01:00 Urine Ketones Negative (Negative) 10/20/18 01:00 Urine Blood Small (Negative) H 10/20/18 01:00 Urine Nitrite Negative (Negative) 10/20/18 01:00 Urine Bilirubin Negative (Negative) 10/20/18 01:00 Urine Urobilinogen <2.0 mg/dL (<2.0) 10/20/18 01:00 Ur Leukocyte Esterase Negative (Negative) 10/20/18 01:00 Urine RBC 3 /hpf (0-5) 10/20/18 01:00 Urine WBC 1 /hpf (0-5) 10/20/18 01:00 Ur Squamous Epith Cells <1 /hpf (0-4) 10/20/18 01:00 Amorphous Sediment Occasional /hpf (None) H 10/20/18 01:00 Urine Bacteria Rare /hpf (None) H 10/13/18 18:06 Urine Mucus Rare /hpf (None) H 10/20/18 01:00 Fluid Source Bronchial Wash 10/21/18 13:00 Fluid Color Colorless 10/21/18 13:00 Fluid Appearance Cloudy 10/21/18 13:00 Fluid RBC 730 /uL 10/21/18 13:00 Fluid Nucleated Cells 515 /uL 10/21/18 13:00 Fluid Polynuclear WBCs 20 % 10/21/18 13:00 Fluid Mononuclear WBCs 80 % 10/21/18 13:00 Stool Occult Blood Positive (Negative) H 10/21/18 23:34 Vancomycin Trough 24.7 ug/mL 10/20/18 06:04 Random Vancomycin 17.9 ug/mL 10/21/18 05:13 C. difficile (EIA) Intrp Negative (Negative) 10/21/18 23:31 Influenza Type A RNA Not Detected (Not Detectd) 10/22/18 18:10 Influenza Type B (PCR) Not Detected (Not Detectd) 10/22/18 18:10 Urine Legionella Ag Not detected (Not detected) 10/22/18 18:10 Mycoplasma pneumon IgG 0.67 INDEX (<=0.90) 10/22/18 18:28 Mycoplasma pneumon IgM 0.09 INDEX (<=0.90) 10/22/18 18:28 Virus Source See Below 10/21/18 13:00 Viral Test See Below H 10/21/18 13:00 Virus Analysis Interp See Below 10/21/18 13:00 Microbiology 10/21/18 13:00 Bronchial Washings - Left Fungal Culture - Preliminary Aminta albicans 10/21/18 13:00 Bronchial Washings - Left Gram Stain - Final 10/21/18 13:00 Bronchial Washings - Left Bronchial Washings Culture - Final 10/20/18 00:10 Sputum Gram Stain - Final 10/20/18 00:10 Sputum Sputum Culture - Final 10/21/18 13:00 Bronchial Washings - Left Acid Fast Bacilli Smear - Final 10/21/18 13:00 Bronchial Washings - Left Acid Fast Bacilli Culture - Preliminary 10/18/18 08:20 Sputum Gram Stain - Final 10/18/18 08:20 Sputum Sputum Culture - Final Aminta albicans 10/13/18 23:47 Blood Blood Culture - Final No Growth after 144 hours 10/13/18 18:06 Urine,Voided Urine Culture - Final Assessment and Plan (1) Paroxysmal atrial fibrillation with rapid ventricular response Current Visit: Yes Status: Acute Code(s): I48.0 - PAROXYSMAL ATRIAL FIBRILLATION SNOMED Code(s): 306225106 (2) Bilateral pneumonia Narrative/Plan: 58-year-old female presents to hospital with a several-day history of increasing illness this is high-grade fever chills or malaise and cough without much sputum production. There is evidence of pneumonia minimally by chest x-ray the patient was remaining very ill with fevers of 103 despite antibiotic therapy. A consult was requested and at that time antibiotic therapy was altered to cover for gram negatives including Pseudomonas as well as resistant gram-positive pathogen such as MRSA and vancomycin was added. For fever Toradol was added given the normal renal function and there is no evidence of improvement of how the patient is feeling with this. Fevers have trended to improvement. Will allow further doses of Toradol Renal function to be followed The patient is requiring oxygen therapy and this is being monitored also. Blood glucoses are being monitored. Leukocytosis is trending to improvement Diarrhea did occur and C. diff testing was negative. Lomotil be requested to improve some diarrhea patient encouraged to utilize yogurt with meals. 10/17/2018 is noted the patient had acute worsening of her status with recurrent fever to 103 with the development of atrial fibrillation with rapid ventricular response and transferred to intensive care unit. She's been seen by pulmonary critical care. If there is no further improvement will consider bronchoscopy. Her fever has now resolved and she feels just minimally better. Does complain of a significant oral discomfort cool solution requested 10/18/2018 he shouldn't is improved today. She is less short of breath. The subdural discomfort is improved and has done well with the cool solution. She is eating today. There is no further fever or chills Pruritic chest discomforts have improved She is starting to mobilize some secretions which has helped her shortness of breath. Appetite poor but she is eating without difficulty Continue current antibiotic therapy, no plans for bronchoscopy at this time 10/19/2018 patient has had some further improvement. She is less short of breath. She is on less oxygen. She's having no further fevers. Mobilizing secretions better. Appetite is adequate. Leukocytosis is improving. She had an increase of her creatinine to 1.15 and ketorolac has been discontinued. Vancomycin levels being monitored closely regarding the treatment of her extensive pneumonia. 10/20/2018 is noted the patient is now had worsening of her status with respiratory failure requiring intubation sedation and mechanical ventilation. She is being followed by pulmonary critical care, with her marked alteration is status bronchoscopy would be helpful for further deep specimens giving all the n egative culture so far. Given the lack of any positive blood cultures and no evidence of any resistant gram-positive pathogens, and with the increasing creatinine we'll discontinue vancomycin at this point in time and monitor. 10/21/2018 patient remains intubated state and mechanically ventilated however is now had bronchoscopy performed. Hopefully will have in addition to therapeutic response a diagnostic response which will further help course of therapy. Creatinine is up to 1.61 vancomycin was discontinued yesterday. We'll monitor cultures for any further needs. Legionella was negative. 10/24/2018 is noted the patient developed respiratory failure requiring intubation sedation and mechanical ventilation. She also had atrial fibrillation requiring intravenous amiodarone and was hypotensive requiring vasopressor therapy. There is not improvement she is off of vasopressor therapy, and amiodarone has been transitioned to oral. Her blood pressure and heart rate have improved. Respiratory status remains such that she is on FiO2 55% and PEEP of 8. If there is no rapid improvement she will likely transition to tracheostomy and PEG tube soon to allow for long-term weaning solution in this bout of primary respiratory failure., Complicated by underlying cardiac dysrhythmia which has improved. Only adenovirus has come back as a positive no other pathogens were detected up till this point in time. 10/25/2018 patient Little change of her status isnow on a peep of 12. Case is discussed with pulmonary critical care. If she does not have rapid improvement will likely proceed onto tracheostomy and PEG tube placement for long-term weaning. Bronchoscopy specimens are still finishing in the microbiology lab. No pathogens found so far other than adenovirus. We'll complete a course of Zosyn, vancomycin was discontinued with no evidence of any resistant gram- positive pathogens. 10/28/2018 patient is now had tracheostomy and PEG tube placed given her ongoing respiratory failure. Likely transition to a later facility in the near future. Cardiac dysrhythmia is stable at this time but she is on PEEP of 12. This makes a follow-up computed tomography scan somewhat difficult at this point in time. We'll complete the course of antibiotic therapy, await any new cultures. 10/29/2018 patient remains mechanically ventilated. Her tracheostomy. Little change is status but no fevers or other acute changes this time. She's now completed a course of antibiotic therapy bronchoscopies afield reveal any pathogens she has evidence of some Aminta of the oropharyngeal area. Short course of fluconazole can be given. Current Visit: Yes Status: Acute Code(s): J18.9 - PNEUMONIA, UNSPECIFIED ORGANISM SNOMED Code(s): 779672973 (3) Fever Current Visit: Yes Status: Acute Code(s): R50.9 - FEVER, UNSPECIFIED SNOMED Code(s): 369005096 (4) Leukocytosis Current Visit: Yes Status: Acute Code(s): D72.829 - ELEVATED WHITE BLOOD CELL COUNT, UNSPECIFIED SNOMED Code(s): 669004960
[2018-10-29 23:09] LABS: Glucose,Whole Blood 160 mg/dL (75-99)
--- NOTE | 2018-10-29 23:25 | P.PN ---
Subjective Progress Note Date: 10/28/18 Principal diagnosis: Sepsis secondary to pneumonia Septic shock Celeste meza is a 58-year-old female known history of asthma, diabetes type 2, hypertension and hyperlipidemia was admitted to the hospital with the complaints of shortness of breath, cough with yellow sputum production 4 days. Patient was lethargic and weak and was confused and she came to the hospital. Patient is being treated for sepsis/septic shock secondary to pneumonia and went into respiratory failure. Currently patient in the MICU. Patient went into atrial fibrillation and was given a dose of Cardizem and converted back to sinus rhythm. 10/25/2018 Patient is currently on mechanical ventilator. Assist control with PEEP of 12, FiO2 50%. Patient went into atrial fibrillation last night and was given amiodarone bolus. Currently on oral amiodarone. Anticoagulation with Eliquis. Being continued on antibiotics the form of Zosyn. Sputum Cultures growing Aminta. Patient is off pressor support. WBC 12.4 and 1.29. Patient has been afebrile otherwise. 10/26/2018 Currently is on mechanical ventilator. Patient is otherwise converted to sinus rhythm. On oral amiodarone now. Patient is being continued on antibiotics in the form of Zosyn. WBC 11.0 patient has been afebrile otherwise. Currently on tube feeding and chest x-ray showed correlate for pneumonia and CHF not excluded. Patient was given a dose of IV Lasix today. Creatinine level is 1.49. Pulmonary, nephrology and cardiology and ID is following. 10/27/2018 Patient is currently on mechanical ventilator. Continued on antibiotics. Maintaining sinus rhythm. Eliquis is on hold. General surgery is planning for PEG tube placement tomorrow. Chest x-ray showed correlate for pneumonia. WBC 13.2 and creatinine level slightly improved to 1.39 10/28/2018 Patient is scheduled for tracheostomy and PEG tube placement today. tube feedings are held. Creatinine level is stable at 1.4. WBC count 12.1. Sodium level CXLVI and IV fluids will be changed to D5 water. Chest x-ray showed improved aeration. No fever no chills. Current medications reviewed. Objective - Vital Signs Vital signs: Vital Signs Temp 98.6 F 10/28/18 16:00 Pulse 75 10/28/18 19:47 Resp 22 10/28/18 18:00 BP 148/82 10/28/18 10:00 Pulse Ox 99 10/28/18 18:00 Intake & Output 10/28/18 10/28/18 10/29/18 06:59 18:59 06:59 Intake Total 2373.056 2800.737 Output Total 1325 3715 Balance -78.560 -2680.263 Weight 102.9 kg 102.9 kg Intake: IV 440 720 Piperacillin-Tazobactam 3 200 100 .375 gm In Sodium Chloride 0.9% 100 ml @ 25 mls/hr IVPB Q8H [facility] Rx#: [id number] Sodium Chloride 0.9% 1, 240 220 000 ml @ 20 mls/hr IV . Q24H [facility] Rx#:[id number] Intake, IV Titration 212.440 272.737 Amount Insulin Regular 100 unit 54.153 72.737 In Sodium Chloride 0.9% 100 ml @ Per Protocol IV .Q0M [facility] Rx#:[id number] Propofol 1,000 mg In 158.287 200 Empty Bag 1 bag @ Titrate IV .Q0M [facility] Rx#: [id number] Tube Feeding 504 42 Other 90 Output: Urine 1125 3500 Stool 200 200 Estimated Blood Loss 15 Other: Voiding Method Indwelling Catheter Indwelling Catheter ABP, PAP, CO, CI - Last Documented Arterial Blood Pressure 106/52 - Exam PHYSICAL EXAMINATION: Patient Is currently sedated and intubated... HEENT: Normocephalic. Neck is supple. Pupils reactive. Nostrils clear. Oral cavity is moist. Ears reveal no drainage. Neck reveals no JVD, carotid bruits, or thyromegaly. CHEST EXAMINATION: Endotracheal tube in place. Trachea is central. Symmetrical expansion. Bibasilar diminished air entry.. CARDIAC: Normal S1, S2 with no gallops. No murmurs ABDOMEN: Soft. Bowel sounds normal. No organomegaly. No abdominal bruits. Fecal collection tube and Alvarez catheter in place. Extremities: reveal no edema. No clubbing or cyanosis Neurologically .patient currently sedated. No gross neurological deficit. Skin: No rash or skin lesions. Psychiatric: Could not be assessed Musculoskeletal: No joint swelling or deformity. - Labs CBC & Chem 7: 10/29/18 04:45 10/29/18 04:45 Labs: Abnormal Lab Results - Last 24 Hours (Table) 10/27/18 10/27/18 10/28/18 Range/Units 21:58 23:00 00:26 WBC (3.8-10.6) k/uL RBC (3.80-5.40) m/uL Hgb (11.4-16.0) gm/dL Hct (34.0-46.0) % MCHC (31.0-37.0) g/dL Plt Count (150-450) k/uL ABG pH (7.35-7.45) ABG pCO2 (35-45) mmHg ABG Total CO2 (19-24) mmol/L ABG O2 Saturation (94-97) % Sodium (137-145) mmol/L Potassium (3.5-5.1) mmol/L Chloride (98-107) mmol/L BUN (7-17) mg/dL Creatinine (0.52-1.04) mg/dL Glucose (74-99) mg/dL POC Glucose (mg/dL) 147 H 149 H 165 H (75-99) mg/dL Total Protein (6.3-8.2) g/dL Albumin (3.5-5.0) g/dL 10/28/18 10/28/18 10/28/18 Range/Units 01:00 02:00 03:06 WBC (3.8-10.6) k/uL RBC (3.80-5.40) m/uL Hgb (11.4-16.0) gm/dL Hct (34.0-46.0) % MCHC (31.0-37.0) g/dL Plt Count (150-450) k/uL ABG pH (7.35-7.45) ABG pCO2 (35-45) mmHg ABG Total CO2 (19-24) mmol/L ABG O2 Saturation (94-97) % Sodium (137-145) mmol/L Potassium (3.5-5.1) mmol/L Chloride (98-107) mmol/L BUN (7-17) mg/dL Creatinine (0.52-1.04) mg/dL Glucose (74-99) mg/dL POC Glucose (mg/dL) 159 H 159 H 147 H (75-99) mg/dL Total Protein (6.3-8.2) g/dL Albumin (3.5-5.0) g/dL 10/28/18 10/28/18 10/28/18 Range/Units 04:04 04:23 05:11 WBC (3.8-10.6) k/uL RBC (3.80-5.40) m/uL Hgb (11.4-16.0) gm/dL Hct (34.0-46.0) % MCHC (31.0-37.0) g/dL Plt Count (150-450) k/uL ABG pH 7.33 L (7.35-7.45) ABG pCO2 48 H (35-45) mmHg ABG Total CO2 27 H (19-24) mmol/L ABG O2 Saturation 97.2 H (94-97) % Sodium (137-145) mmol/L Potassium (3.5-5.1) mmol/L Chloride (98-107) mmol/L BUN (7-17) mg/dL Creatinine (0.52-1.04) mg/dL Glucose (74-99) mg/dL POC Glucose (mg/dL) 161 H 170 H (75-99) mg/dL Total Protein (6.3-8.2) g/dL Albumin (3.5-5.0) g/dL 10/28/18 10/28/18 10/28/18 Range/Units 05:26 05:26 06:17 WBC 12.1 H (3.8-10.6) k/uL RBC 3.36 L (3.80-5.40) m/uL Hgb 9.5 L (11.4-16.0) gm/dL Hct 31.1 L (34.0-46.0) % MCHC 30.6 L (31.0-37.0) g/dL Plt Count 585 H (150-450) k/uL ABG pH (7.35-7.45) ABG pCO2 (35-45) mmHg ABG Total CO2 (19-24) mmol/L ABG O2 Saturation (94-97) % Sodium 146 H (137-145) mmol/L Potassium 5.2 H (3.5-5.1) mmol/L Chloride 114 H (98-107) mmol/L BUN 64 H (7-17) mg/dL Creatinine 1.40 H (0.52-1.04) mg/dL Glucose 161 H (74-99) mg/dL POC Glucose (mg/dL) 178 H (75-99) mg/dL Total Protein 5.3 L (6.3-8.2) g/dL Albumin 2.8 L (3.5-5.0) g/dL 10/28/18 10/28/18 10/28/18 Range/Units 07:01 09:37 11:31 WBC (3.8-10.6) k/uL RBC (3.80-5.40) m/uL Hgb (11.4-16.0) gm/dL Hct (34.0-46.0) % MCHC (31.0-37.0) g/dL Plt Count (150-450) k/uL ABG pH (7.35-7.45) ABG pCO2 (35-45) mmHg ABG Total CO2 (19-24) mmol/L ABG O2 Saturation (94-97) % Sodium (137-145) mmol/L Potassium (3.5-5.1) mmol/L Chloride (98-107) mmol/L BUN (7-17) mg/dL Creatinine (0.52-1.04) mg/dL Glucose (74-99) mg/dL POC Glucose (mg/dL) 150 H 163 H 153 H (75-99) mg/dL Total Protein (6.3-8.2) g/dL Albumin (3.5-5.0) g/dL 10/28/18 10/28/18 10/28/18 Range/Units 14:43 16:07 17:10 WBC (3.8-10.6) k/uL RBC (3.80-5.40) m/uL Hgb (11.4-16.0) gm/dL Hct (34.0-46.0) % MCHC (31.0-37.0) g/dL Plt Count (150-450) k/uL ABG pH (7.35-7.45) ABG pCO2 (35-45) mmHg ABG Total CO2 (19-24) mmol/L ABG O2 Saturation (94-97) % Sodium (137-145) mmol/L Potassium (3.5-5.1) mmol/L Chloride (98-107) mmol/L BUN (7-17) mg/dL Creatinine (0.52-1.04) mg/dL Glucose (74-99) mg/dL POC Glucose (mg/dL) 132 H 176 H 226 H (75-99) mg/dL Total Protein (6.3-8.2) g/dL Albumin (3.5-5.0) g/dL 10/28/18 10/28/18 10/28/18 Range/Units 18:20 20:06 21:01 WBC (3.8-10.6) k/uL RBC (3.80-5.40) m/uL Hgb (11.4-16.0) gm/dL Hct (34.0-46.0) % MCHC (31.0-37.0) g/dL Plt Count (150-450) k/uL ABG pH (7.35-7.45) ABG pCO2 (35-45) mmHg ABG Total CO2 (19-24) mmol/L ABG O2 Saturation (94-97) % Sodium (137-145) mmol/L Potassium (3.5-5.1) mmol/L Chloride (98-107) mmol/L BUN (7-17) mg/dL Creatinine (0.52-1.04) mg/dL Glucose (74-99) mg/dL POC Glucose (mg/dL) 201 H 166 H 152 H (75-99) mg/dL Total Protein (6.3-8.2) g/dL Albumin (3.5-5.0) g/dL Assessment and Plan Assessment: Acute hypoxemic and hypercapnic respiratory failure requiring mechanical matilda tilation. Failure to wean from ventilator. Scheduled for trach and PEG tube placement. Acute metabolic encephalopathy secondary infection Sepsis/septic shock secondary to right lower lobe pneumonia. Likely community- acquired Atrial fibrillation with rapid regular rate Acute kidney injury secondary to ATN due to hemodynamic instability and sepsis. Creatinine peaked at 1.6. Currently on 1.29--1.49--1.39--0.4 Insulin-dependent diabetes type 2 Acute Asthma exacerbation Metabolic acidosis Paroxysmal atrial fibrillation Hypovolemic hyponatremia Hyperlipidemia Plan: Patient is currently on mechanical ventilator. Pulmonary is following. Continue with antibiotics in the form of Zosyn. ID is on board. Sputum culture is growing Aminta. Continue with oral amiodarone. Patient was given amiodarone bolus. Converted to sinus rhythm now. Continue the current insulin dosing and titrate as needed. Prognosis is guarded. IV fluids in the form of D5 water. Pulmonary, ID, nephrology is following. Time with Patient: Greater than 30
[2018-10-29] MEDS: FLUCONAZOLE ORAL SUSP 1,400 MG/35 ML BOTTLE PO SCH (23:36)
--- NOTE | 2018-10-29 23:38 | P.PN ---
Subjective Progress Note Date: 10/29/18 Principal diagnosis: Sepsis secondary to pneumonia Septic shock Celeste meza is a 58-year-old female known history of asthma, diabetes type 2, hypertension and hyperlipidemia was admitted to the hospital with the complaints of shortness of breath, cough with yellow sputum production 4 days. Patient was lethargic and weak and was confused and she came to the hospital. Patient is being treated for sepsis/septic shock secondary to pneumonia and went into respiratory failure. Currently patient in the MICU. Patient went into atrial fibrillation and was given a dose of Cardizem and converted back to sinus rhythm. 10/25/2018 Patient is currently on mechanical ventilator. Assist control with PEEP of 12, FiO2 50%. Patient went into atrial fibrillation last night and was given amiodarone bolus. Currently on oral amiodarone. Anticoagulation with Eliquis. Being continued on antibiotics the form of Zosyn. Sputum Cultures growing Aminta. Patient is off pressor support. WBC 12.4 and 1.29. Patient has been afebrile otherwise. 10/26/2018 Currently is on mechanical ventilator. Patient is otherwise converted to sinus rhythm. On oral amiodarone now. Patient is being continued on antibiotics in the form of Zosyn. WBC 11.0 patient has been afebrile otherwise. Currently on tube feeding and chest x-ray showed correlate for pneumonia and CHF not excluded. Patient was given a dose of IV Lasix today. Creatinine level is 1.49. Pulmonary, nephrology and cardiology and ID is following. 10/27/2018 Patient is currently on mechanical ventilator. Continued on antibiotics. Maintaining sinus rhythm. Eliquis is on hold. General surgery is planning for PEG tube placement tomorrow. Chest x-ray showed correlate for pneumonia. WBC 13.2 and creatinine level slightly improved to 1.39 10/28/2018 Patient is scheduled for tracheostomy and PEG tube placement today. tube feedings are held. Creatinine level is stable at 1.4. WBC count 12.1. Sodium level CXLVI and IV fluids will be changed to D5 water. Chest x-ray showed improved aeration. No fever no chills. 10/29/2018 Patient is status post trach and PEG tube placement. Patient is currently on VC plus modality ventilation. Chest x-ray showed stable findings compared to yesterday. Sodium level increased to 147 . BUN 65 and creatinine 1.45 Zosyn has been discontinued and patient was started on Diflucan. Fungal cultures growing Aminta albicans. No fever no chills. WBC 13.0 and hemoglobin 10 Current medications reviewed. Objective - Vital Signs Vital signs: Vital Signs Temp 97.7 F 10/29/18 16:00 Pulse 66 10/29/18 22:00 Resp 17 10/29/18 22:00 BP 148/82 10/28/18 10:00 Pulse Ox 96 10/29/18 22:00 Intake & Output 10/29/18 10/29/18 10/30/18 06:59 18:59 06:59 Intake Total 834.265 2081.349 376.445 Output Total 2220 1305 355 Balance -1556.989 -130.651 21.445 Weight 98.2 kg 98.2 kg Intake: IV 440 540 200 Dextrose 5% in Water 1, 500 200 000 ml @ 50 mls/hr IV . Q20H [facility] Rx#:[id number] Piperacillin-Tazobactam 3 200 .375 gm In Sodium Chloride 0.9% 100 ml @ 25 mls/hr IVPB Q8H [facility] Rx#: [id number] Sodium Chloride 0.9% 1, 240 40 000 ml @ 20 mls/hr IV . Q24H [facility] Rx#:[id number] Intake, IV Titration 223.011 264.349 26.445 Amount Insulin Regular 100 unit 23.011 92.499 26.445 In Sodium Chloride 0.9% 100 ml @ Per Protocol IV .Q0M [facility] Rx#:[id number] Propofol 1,000 mg In 200 171.850 Empty Bag 1 bag @ Titrate IV .Q0M [facility] Rx#: [id number] Tube Feeding 210 120 Other 160 30 Output: Urine 2220 905 355 Stool 400 Other: Voiding Method Indwelling Catheter Indwelling Catheter ABP, PAP, CO, CI - Last Documented Arterial Blood Pressure 146/71 - Exam PHYSICAL EXAMINATION: Patient Is currently on VC+ modality ventilation. Neck is supple. Pupils reactive. Nostrils clear. Oral cavity is moist. Ears reveal no drainage. Neck reveals no JVD, carotid bruits, or thyromegaly. CHEST EXAMINATION: Tracheostomy tube in place. Symmetrical expansion. Bibasilar diminished air entry.. CARDIAC: Normal S1, S2 with no gallops. No murmurs ABDOMEN: Soft. Bowel sounds normal. No organomegaly. No abdominal bruits. . PEG tube in place. Fecal collection tube and Alvarez catheter in place. Extremities: reveal no edema. No clubbing or cyanosis Neurologically .patient currently sedated. No gross neurological deficit. Skin: No rash or skin lesions. Psychiatric: Could not be assessed Musculoskeletal: No joint swelling or deformity. - Labs CBC & Chem 7: 10/29/18 04:45 10/29/18 04:45 Labs: Abnormal Lab Results - Last 24 Hours (Table) 10/28/18 10/29/18 10/29/18 Range/Units 23:13 00:01 00:57 WBC (3.8-10.6) k/uL RBC (3.80-5.40) m/uL Hgb (11.4-16.0) gm/dL Hct (34.0-46.0) % MCHC (31.0-37.0) g/dL Plt Count (150-450) k/uL Neutrophils # (1.3-7.7) k/uL Lymphocytes # (1.0-4.8) k/uL ABG HCO3 (21-25) mmol/L ABG Total CO2 (19-24) mmol/L Sodium (137-145) mmol/L Chloride (98-107) mmol/L BUN (7-17) mg/dL Creatinine (0.52-1.04) mg/dL Glucose (74-99) mg/dL POC Glucose (mg/dL) 148 H 140 H 140 H (75-99) mg/dL Total Protein (6.3-8.2) g/dL Albumin (3.5-5.0) g/dL 10/29/18 10/29/18 10/29/18 Range/Units 02:01 03:02 04:16 WBC (3.8-10.6) k/uL RBC (3.80-5.40) m/uL Hgb (11.4-16.0) gm/dL Hct (34.0-46.0) % MCHC (31.0-37.0) g/dL Plt Count (150-450) k/uL Neutrophils # (1.3-7.7) k/uL Lymphocytes # (1.0-4.8) k/uL ABG HCO3 (21-25) mmol/L ABG Total CO2 (19-24) mmol/L Sodium (137-145) mmol/L Chloride (98-107) mmol/L BUN (7-17) mg/dL Creatinine (0.52-1.04) mg/dL Glucose (74-99) mg/dL POC Glucose (mg/dL) 138 H 206 H 185 H (75-99) mg/dL Total Protein (6.3-8.2) g/dL Albumin (3.5-5.0) g/dL 10/29/18 10/29/18 10/29/18 Range/Units 04:30 04:45 04:45 WBC 13.0 H (3.8-10.6) k/uL RBC 3.66 L (3.80-5.40) m/uL Hgb 10.2 L (11.4-16.0) gm/dL Hct 33.6 L (34.0-46.0) % MCHC 30.4 L (31.0-37.0) g/dL Plt Count 564 H (150-450) k/uL Neutrophils # 12.2 H (1.3-7.7) k/uL Lymphocytes # 0.4 L (1.0-4.8) k/uL ABG HCO3 27 H (21-25) mmol/L ABG Total CO2 28 H (19-24) mmol/L Sodium 147 H (137-145) mmol/L Chloride 113 H (98-107) mmol/L BUN 65 H (7-17) mg/dL Creatinine 1.45 H (0.52-1.04) mg/dL Glucose 188 H (74-99) mg/dL POC Glucose (mg/dL) (75-99) mg/dL Total Protein 5.5 L (6.3-8.2) g/dL Albumin 3.0 L (3.5-5.0) g/dL 10/29/18 10/29/18 10/29/18 Range/Units 04:52 06:10 07:05 WBC (3.8-10.6) k/uL RBC (3.80-5.40) m/uL Hgb (11.4-16.0) gm/dL Hct (34.0-46.0) % MCHC (31.0-37.0) g/dL Plt Count (150-450) k/uL Neutrophils # (1.3-7.7) k/uL Lymphocytes # (1.0-4.8) k/uL ABG HCO3 (21-25) mmol/L ABG Total CO2 (19-24) mmol/L Sodium (137-145) mmol/L Chloride (98-107) mmol/L BUN (7-17) mg/dL Creatinine (0.52-1.04) mg/dL Glucose (74-99) mg/dL POC Glucose (mg/dL) 188 H 189 H 153 H (75-99) mg/dL Total Protein (6.3-8.2) g/dL Albumin (3.5-5.0) g/dL 10/29/18 10/29/18 10/29/18 Range/Units 08:08 09:05 10:07 WBC (3.8-10.6) k/uL RBC (3.80-5.40) m/uL Hgb (11.4-16.0) gm/dL Hct (34.0-46.0) % MCHC (31.0-37.0) g/dL Plt Count (150-450) k/uL Neutrophils # (1.3-7.7) k/uL Lymphocytes # (1.0-4.8) k/uL ABG HCO3 (21-25) mmol/L ABG Total CO2 (19-24) mmol/L Sodium (137-145) mmol/L Chloride (98-107) mmol/L BUN (7-17) mg/dL Creatinine (0.52-1.04) mg/dL Glucose (74-99) mg/dL POC Glucose (mg/dL) 133 H 157 H 169 H (75-99) mg/dL Total Protein (6.3-8.2) g/dL Albumin (3.5-5.0) g/dL 10/29/18 10/29/18 10/29/18 Range/Units 11:19 12:03 12:56 WBC (3.8-10.6) k/uL RBC (3.80-5.40) m/uL Hgb (11.4-16.0) gm/dL Hct (34.0-46.0) % MCHC (31.0-37.0) g/dL Plt Count (150-450) k/uL Neutrophils # (1.3-7.7) k/uL Lymphocytes # (1.0-4.8) k/uL ABG HCO3 (21-25) mmol/L ABG Total CO2 (19-24) mmol/L Sodium (137-145) mmol/L Chloride (98-107) mmol/L BUN (7-17) mg/dL Creatinine (0.52-1.04) mg/dL Glucose (74-99) mg/dL POC Glucose (mg/dL) 199 H 181 H 190 H (75-99) mg/dL Total Protein (6.3-8.2) g/dL Albumin (3.5-5.0) g/dL 10/29/18 10/29/18 10/29/18 Range/Units 14:10 15:02 16:07 WBC (3.8-10.6) k/uL RBC (3.80-5.40) m/uL Hgb (11.4-16.0) gm/dL Hct (34.0-46.0) % MCHC (31.0-37.0) g/dL Plt Count (150-450) k/uL Neutrophils # (1.3-7.7) k/uL Lymphocytes # (1.0-4.8) k/uL ABG HCO3 (21-25) mmol/L ABG Total CO2 (19-24) mmol/L Sodium (137-145) mmol/L Chloride (98-107) mmol/L BUN (7-17) mg/dL Creatinine (0.52-1.04) mg/dL Glucose (74-99) mg/dL POC Glucose (mg/dL) 193 H 211 H 171 H (75-99) mg/dL Total Protein (6.3-8.2) g/dL Albumin (3.5-5.0) g/dL 10/29/18 10/29/18 10/29/18 Range/Units 17:01 17:54 18:57 WBC (3.8-10.6) k/uL RBC (3.80-5.40) m/uL Hgb (11.4-16.0) gm/dL Hct (34.0-46.0) % MCHC (31.0-37.0) g/dL Plt Count (150-450) k/uL Neutrophils # (1.3-7.7) k/uL Lymphocytes # (1.0-4.8) k/uL ABG HCO3 (21-25) mmol/L ABG Total CO2 (19-24) mmol/L Sodium (137-145) mmol/L Chloride (98-107) mmol/L BUN (7-17) mg/dL Creatinine (0.52-1.04) mg/dL Glucose (74-99) mg/dL POC Glucose (mg/dL) 180 H 101 H 198 H (75-99) mg/dL Total Protein (6.3-8.2) g/dL Albumin (3.5-5.0) g/dL 10/29/18 10/29/18 10/29/18 Range/Units 20:01 21:17 21:59 WBC (3.8-10.6) k/uL RBC (3.80-5.40) m/uL Hgb (11.4-16.0) gm/dL Hct (34.0-46.0) % MCHC (31.0-37.0) g/dL Plt Count (150-450) k/uL Neutrophils # (1.3-7.7) k/uL Lymphocytes # (1.0-4.8) k/uL ABG HCO3 (21-25) mmol/L ABG Total CO2 (19-24) mmol/L Sodium (137-145) mmol/L Chloride (98-107) mmol/L BUN (7-17) mg/dL Creatinine (0.52-1.04) mg/dL Glucose (74-99) mg/dL POC Glucose (mg/dL) 241 H 191 H 181 H (75-99) mg/dL Total Protein (6.3-8.2) g/dL Albumin (3.5-5.0) g/dL Assessment and Plan Assessment: Acute hypoxemic and hypercapnic respiratory failure requiring mechanical ventilation. Failure to wean from ventilator. Scheduled for trach and PEG tube placement. Acute metabolic encephalopathy secondary infection Sepsis/septic shock secondary to right lower lobe pneumonia. Likely community- acquired Atrial fibrillation with rapid regular rate Acute kidney injury secondary to ATN due to hemodynamic instability and sepsis. Creatinine peaked at 1.6. Currently on 1.29--1.49--1.39--1.4--1.45 Insulin-dependent diabetes type 2 Acute Asthma exacerbation Metabolic acidosis Paroxysmal atrial fibrillation Hypovolemic hyponatremia Hyperlipidemia Plan: Patient is currently on mechanical ventilator. Pulmonary is following. Patient was continued on antibiotics in the form of Zosyn. Currently started on Diflucan since the fungal culture growing Aminta albicans.. ID is on board. Sputum culture is growing Aminta. Continue with oral amiodarone. Patient was given amiodarone bolus. Converted to sinus rhythm now. Continue the current insulin dosing and titrate as needed. Prognosis is guarded. IV fluids in the form of D5 water. Pulmonary, ID, nephrology is following. Possible transfer to select specialty/ LTAC possibly on Wednesday. Time with Patient: Greater than 30
[2018-10-30] LABS: Glucose,Whole Blood 127 mg/dL (75-99)
[2018-10-30 01:00] LABS: Glucose,Whole Blood 143 mg/dL (75-99)
[2018-10-30 02:05] LABS: Glucose,Whole Blood 160 mg/dL (75-99)
[2018-10-30] MEDS: PROPOFOL 1,000 MG in EMPTY BAG 1 BAG IV SCH ×3 (02:13→18:39)
[2018-10-30 03:12] LABS: Glucose,Whole Blood 183 mg/dL (75-99)
[2018-10-30] MEDS: IPRATROPIUM-ALBUTEROL 3 ML NEB INHALATION SCH ×6 (03:39→23:29)
[2018-10-30 04:09] LABS: Glucose,Whole Blood 193 mg/dL (75-99)
[2018-10-30 04:25] LABS: HGB 10.2 gm/dL (11.4-16.0); MCH 28.5 pg (25.0-35.0); MCHC 31.7 g/dL (31.0-37.0); Mean Platelet Volume 7.4; Platelet Count 461 k/uL (150-450); RBC 3.56 m/uL (3.80-5.40); RDW 14.3 % (11.5-15.5); WBC 15.1 k/uL (3.8-10.6)
[2018-10-30 04:31] LABS: Calcium 8.5 mg/dL (8.4-10.2); Potassium 4.8 mmol/L (3.5-5.1)
[2018-10-30 05:01] LABS: Glucose,Whole Blood 184 mg/dL (75-99)
[2018-10-30 05:08] LABS: ABG Base Excess 1.6 mmol/L; ABG HCO3 27 mmol/L (21-25); ABG PCO2 46 mmHg (35-45); ABG PH 7.37 (7.35-7.45); ABG PO2 109 mmHg (83-108); ABG TCO2 28 mmol/L (19-24)
--- NOTE | 2018-10-30 06:05 | XR ---
EXAMINATION TYPE: XR chest 1V portable DATE OF EXAM: 10/30/2018 HISTORY: SOB. REFERENCE: Previous study dated 10/29/2018. FINDINGS: There is a tracheostomy tube in place. Its tip overlies the tracheal air column in this sin gle frontal projection. There is bibasilar airspace disease, worse on the right than the left. Heart size is obscured. There is a right-sided effusion. IMPRESSION: WORSENING RIGHT BASILAR AIRSPACE DISEASE.
[2018-10-30] MEDS: NOREPINEPHRINE 4 MG in SODIUM CHLORIDE 0.9% 250 ML IV SCH ×2 (06:10→17:36)
[2018-10-30] MEDS: methylPREDNISolone SOD SUCCI 125 MG/2 ML VIAL IV SCH ×4 (06:10→23:05)
[2018-10-30 06:36] LABS: Glucose,Whole Blood 176 mg/dL (75-99)
[2018-10-30] MEDS: INSULIN REGULAR 100 UNIT in SODIUM CHLORIDE 0.9% 100 ML IV SCH ×2 (06:48→21:30)
[2018-10-30 07:08] LABS: Glucose,Whole Blood 181 mg/dL (75-99)
[2018-10-30] MEDS: FORMOTEROL FUMARATE 20 MCG/2 ML NEBU INHALATION SCH ×2 (07:18→19:32)
[2018-10-30] MEDS: BUDESONIDE 1 MG/2 ML NEBU INHALATION SCH ×2 (07:18→19:33)
[2018-10-30 08:08] LABS: Glucose,Whole Blood 173 mg/dL (75-99)
--- NOTE | 2018-10-30 08:26 | P.PN ---
Subjective Progress Note Date: 10/30/18 CHIEF COMPLAINT: Protein malnutrition and respiratory failure HISTORY OF PRESENT ILLNESS: The patient is a 58-year-old female postop day 2 status post tracheostomy and gastrostomy tube placement. She is not responsive. Continue ICU care. ROS: No reports of nausea and vomiting. No fevers or chills. No reports of gastrointestinal bleed. PHYSICAL EXAM: VITAL SIGNS: Reviewed CONSTITUTIONAL: Well developed and in no acute distress. EYES: Conjuctivae without sclera icterus. Extraocular movements grossly intact. HEAD, EARS, NOSE, THROAT: Moist buccal mucosa. Head is atraumatic, normocephalic. Hears conversational speech. No nasal drainage. NECK: Dressings are clean, dry, and intact along tracheostomy site. RESPIRATORY: Non-labored respirations and equal bilateral excursions on mechanical ventilator. CARDIOVASCULAR: Palpable 2+ radial pulses. ABDOMEN: Soft nontender. Has rectal drainage system with dark green stool. No blood. MUSCULOSKELETAL: No gross deformity of the lower extremities noted. No clubbing. No cyanosis. SKIN: Good skin turgor. Well perfused. NEUROLOGIC: No focal or lateralizing signs. PSYCH: Alert to self. CLINCAL LABS: White blood cell count elevated over 13,000 and now increasing to 15,000 ASSESSMENT: 1. Respiratory failure, acute 2. Status post tracheostomy 3. Inadequate protein intake, protein malnutrition status post gastrostomy tube placement PLAN: 1. Tube feeds at goal to be managed by dietitian 2. Continue ICU management. 3. Continue IV antibiotics for persistent leukocytosis. Objective - Vital Signs Vital signs: Vital Signs Temp 98.7 F 10/30/18 04:00 Pulse 96 10/30/18 07:59 Resp 26 H 10/30/18 07:00 BP 148/82 10/28/18 10:00 Pulse Ox 96 10/30/18 07:00 Intake & Output 10/29/18 10/30/18 10/30/18 18:59 06:59 18:59 Intake Total 3331.230 0116.541 88.753 Output Total 1305 1175 120 Balance -130.651 38.541 -31.247 Weight 98.2 kg 102.8 kg Intake: IV 540 600 50 Dextrose 5% in Water 1, 500 600 50 000 ml @ 50 mls/hr IV . Q20H [facility] Rx#:[id number] Sodium Chloride 0.9% 1, 40 000 ml @ 20 mls/hr IV . Q24H [facility] Rx#:[id number] Intake, IV Titration 264.349 163.541 8.753 Amount Insulin Regular 100 unit 92.499 68.680 8.753 In Sodium Chloride 0.9% 100 ml @ Per Protocol IV .Q0M [facility] Rx#:[id number] Propofol 1,000 mg In 171.850 94.861 Empty Bag 1 bag @ Titrate IV .Q0M [facility] Rx#: [id number] Tube Feeding 210 360 30 Other 160 90 Output: Urine 905 1175 120 Stool 400 Other: Voiding Method Indwelling Catheter Indwelling Catheter ABP, PAP, CO, CI - Last Documented Arterial Blood Pressure 144/73 - Labs CBC & Chem 7: 10/30/18 04:00 10/30/18 04:00 Labs: Abnormal Lab Results - Last 24 Hours (Table) 10/29/18 10/29/18 10/29/18 Range/Units 09:05 10:07 11:19 WBC (3.8-10.6) k/uL RBC (3.80-5.40) m/uL Hgb (11.4-16.0) gm/dL Hct (34.0-46.0) % Plt Count (150-450) k/uL ABG pCO2 (35-45) mmHg ABG pO2 (83-108) mmHg ABG HCO3 (21-25) mmol/L ABG Total CO2 (19-24) mmol/L ABG O2 Saturation (94-97) % Chloride (98-107) mmol/L BUN (7-17) mg/dL Creatinine (0.52-1.04) mg/dL Glucose (74-99) mg/dL POC Glucose (mg/dL) 157 H 169 H 199 H (75-99) mg/dL 10/29/18 10/29/18 10/29/18 Range/Units 12:03 12:56 14:10 WBC (3.8-10.6) k/uL RBC (3.80-5.40) m/uL Hgb (11.4-16.0) gm/dL Hct (34.0-46.0) % Plt Count (150-450) k/uL ABG pCO2 (35-45) mmHg ABG pO2 (83-108) mmHg ABG HCO3 (21-25) mmol/L ABG Total CO2 (19-24) mmol/L ABG O2 Saturation (94-97) % Chloride (98-107) mmol/L BUN (7-17) mg/dL Creatinine (0.52-1.04) mg/dL Glucose (74-99) mg/dL POC Glucose (mg/dL) 181 H 190 H 193 H (75-99) mg/dL 10/29/18 10/29/18 10/29/18 Range/Units 15:02 16:07 17:01 WBC (3.8-10.6) k/uL RBC (3.80-5.40) m/uL Hgb (11.4-16.0) gm/dL Hct (34.0-46.0) % Plt Count (150-450) k/uL ABG pCO2 (35-45) mmHg ABG pO2 (83-108) mmHg ABG HCO3 (21-25) mmol/L ABG Total CO2 (19-24) mmol/L ABG O2 Saturation (94-97) % Chloride (98-107) mmol/L BUN (7-17) mg/dL Creatinine (0.52-1.04) mg/dL Glucose (74-99) mg/dL POC Glucose (mg/dL) 211 H 171 H 180 H (75-99) mg/dL 10/29/18 10/29/18 10/29/18 Range/Units 17:54 18:57 20:01 WBC (3.8-10.6) k/uL RBC (3.80-5.40) m/uL Hgb (11.4-16.0) gm/dL Hct (34.0-46.0) % Plt Count (150-450) k/uL ABG pCO2 (35-45) mmHg ABG pO2 (83-108) mmHg ABG HCO3 (21-25) mmol/L ABG Total CO2 (19-24) mmol/L ABG O2 Saturation (94-97) % Chloride (98-107) mmol/L BUN (7-17) mg/dL Creatinine (0.52-1.04) mg/dL Glucose (74-99) mg/dL POC Glucose (mg/dL) 101 H 198 H 241 H (75-99) mg/dL 10/29/18 10/29/18 10/29/18 Range/Units 21:17 21:59 23:07 WBC (3.8-10.6) k/uL RBC (3.80-5.40) m/uL Hgb (11.4-16.0) gm/dL Hct (34.0-46.0) % Plt Count (150-450) k/uL ABG pCO2 (35-45) mmHg ABG pO2 (83-108) mmHg ABG HCO3 (21-25) mmol/L ABG Total CO2 (19-24) mmol/L ABG O2 Saturation (94-97) % Chloride (98-107) mmol/L BUN (7-17) mg/dL Creatinine (0.52-1.04) mg/dL Glucose (74-99) mg/dL POC Glucose (mg/dL) 191 H 181 H 160 H (75-99) mg/dL 10/29/18 10/30/18 10/30/18 Range/Units 23:59 00:58 02:04 WBC (3.8-10.6) k/uL RBC (3.80-5.40) m/uL Hgb (11.4-16.0) gm/dL Hct (34.0-46.0) % Plt Count (150-450) k/uL ABG pCO2 (35-45) mmHg ABG pO2 (83-108) mmHg ABG HCO3 (21-25) mmol/L ABG Total CO2 (19-24) mmol/L ABG O2 Saturation (94-97) % Chloride (98-107) mmol/L BUN (7-17) mg/dL Creatinine (0.52-1.04) mg/dL Glucose (74-99) mg/dL POC Glucose (mg/dL) 127 H 143 H 160 H (75-99) mg/dL 10/30/18 10/30/18 10/30/18 Range/Units 03:11 04:00 04:00 WBC 15.1 H (3.8-10.6) k/uL RBC 3.56 L (3.80-5.40) m/uL Hgb 10.2 L (11.4-16.0) gm/dL Hct 32.0 L (34.0-46.0) % Plt Count 461 H (150-450) k/uL ABG pCO2 (35-45) mmHg ABG pO2 (83-108) mmHg ABG HCO3 (21-25) mmol/L ABG Total CO2 (19-24) mmol/L ABG O2 Saturation (94-97) % Chloride 113 H (98-107) mmol/L BUN 64 H (7-17) mg/dL Creatinine 1.26 H (0.52-1.04) mg/dL Glucose 187 H (74-99) mg/dL POC Glucose (mg/dL) 183 H (75-99) mg/dL 10/30/18 10/30/18 10/30/18 Range/Units 04:07 04:59 05:04 WBC (3.8-10.6) k/uL RBC (3.80-5.40) m/uL Hgb (11.4-16.0) gm/dL Hct (34.0-46.0) % Plt Count (150-450) k/uL ABG pCO2 46 H (35-45) mmHg ABG pO2 109 H (83-108) mmHg ABG HCO3 27 H (21-25) mmol/L ABG Total CO2 28 H (19-24) mmol/L ABG O2 Saturation 98.0 H (94-97) % Chloride (98-107) mmol/L BUN (7-17) mg/dL Creatinine (0.52-1.04) mg/dL Glucose (74-99) mg/dL POC Glucose (mg/dL) 193 H 184 H (75-99) mg/dL 10/30/18 10/30/18 10/30/18 Range/Units 06:35 07:07 08:07 WBC (3.8-10.6) k/uL RBC (3.80-5.40) m/uL Hgb (11.4-16.0) gm/dL Hct (34.0-46.0) % Plt Count (150-450) k/uL ABG pCO2 (35-45) mmHg ABG pO2 (83-108) mmHg ABG HCO3 (21-25) mmol/L ABG Total CO2 (19-24) mmol/L ABG O2 Saturation (94-97) % Chloride (98-107) mmol/L BUN (7-17) mg/dL Creatinine (0.52-1.04) mg/dL Glucose (74-99) mg/dL POC Glucose (mg/dL) 176 H 181 H 173 H (75-99) mg/dL
[2018-10-30] MEDS: HYDROmorphone 1 MG/ML 1 ML SYRINGE IVP PRN ×3 (08:57→20:51)
[2018-10-30] MEDS: CHLORHEXIDINE GLUCONATE 15 ML CUP MUCOUS MEM SCH ×2 (09:02→20:44)
[2018-10-30] MEDS: MAGNESIUM OXIDE 400 MG TAB PO SCH (09:02)
[2018-10-30] MEDS: AMIODARONE 200 MG TAB PO SCH ×2 (09:02→20:43)
[2018-10-30] MEDS: PANTOPRAZOLE 40 MG/10 ML VIAL IVP SCH ×2 (09:02→20:44)
[2018-10-30] MEDS: METOPROLOL TARTRATE 25 MG TAB PO SCH ×2 (09:02→20:44)
[2018-10-30] MEDS: MAG HYDROX/AL HYDROX/SIMETH 30 ML, LIDOCAINE VISCOUS 30 ML, NYSTATIN 100,000 UNIT/ML SU... PO SCH ×12 (09:04→22:56)
[2018-10-30] MEDS: amLODIPine 5 MG TAB PO SCH ×2 (09:08→20:43)
[2018-10-30 09:24] LABS: Glucose,Whole Blood 196 mg/dL (75-99)
--- NOTE | 2018-10-30 09:24 | P.PN ---
Subjective Progress Note Date: 10/30/18 Seen and examined for the follow-up of acute kidney injury. Had tracheostomy done currently on a ventilator. Urine output of 2.5 L in the last 24 hours. Still has diarrhea. Objective - Vital Signs Vital signs: Vital Signs Temp 98.7 F 10/30/18 04:00 Pulse 96 10/30/18 07:59 Resp 26 H 10/30/18 07:00 BP 148/82 10/28/18 10:00 Pulse Ox 96 10/30/18 07:00 Intake & Output 10/29/18 10/30/18 10/30/18 18:59 06:59 18:59 Intake Total 6271.030 2608.541 88.753 Output Total 1305 1175 120 Balance -130.651 38.541 -31.247 Weight 98.2 kg 102.8 kg Intake: IV 540 600 50 Dextrose 5% in Water 1, 500 600 50 000 ml @ 50 mls/hr IV . Q20H [facility] Rx#:[id number] Sodium Chloride 0.9% 1, 40 000 ml @ 20 mls/hr IV . Q24H [facility] Rx#:[id number] Intake, IV Titration 264.349 163.541 8.753 Amount Insulin Regular 100 unit 92.499 68.680 8.753 In Sodium Chloride 0.9% 100 ml @ Per Protocol IV .Q0M [facility] Rx#:[id number] Propofol 1,000 mg In 171.850 94.861 Empty Bag 1 bag @ Titrate IV .Q0M [facility] Rx#: [id number] Tube Feeding 210 360 30 Other 160 90 Output: Urine 905 1175 120 Stool 400 Other: Voiding Method Indwelling Catheter Indwelling Catheter ABP, PAP, CO, CI - Last Documented Arterial Blood Pressure 144/73 - Exam No acute distress, on ventilator S1-S2 heard Bilateral air entry Alvarez catheter Edema - Labs CBC & Chem 7: 10/30/18 04:00 10/30/18 04:00 Labs: Abnormal Lab Results - Last 24 Hours (Table) 10/29/18 10/29/18 10/29/18 Range/Units 10:07 11:19 12:03 WBC (3.8-10.6) k/uL RBC (3.80-5.40) m/uL Hgb (11.4-16.0) gm/dL Hct (34.0-46.0) % Plt Count (150-450) k/uL ABG pCO2 (35-45) mmHg ABG pO2 (83-108) mmHg ABG HCO3 (21-25) mmol/L ABG Total CO2 (19-24) mmol/L ABG O2 Saturation (94-97) % Chloride (98-107) mmol/L BUN (7-17) mg/dL Creatinine (0.52-1.04) mg/dL Glucose (74-99) mg/dL POC Glucose (mg/dL) 169 H 199 H 181 H (75-99) mg/dL 10/29/18 10/29/18 10/29/18 Range/Units 12:56 14:10 15:02 WBC (3.8-10.6) k/uL RBC (3.80-5.40) m/uL Hgb (11.4-16.0) gm/dL Hct (34.0-46.0) % Plt Count (150-450) k/uL ABG pCO2 (35-45) mmHg ABG pO2 (83-108) mmHg ABG HCO3 (21-25) mmol/L ABG Total CO2 (19-24) mmol/L ABG O2 Saturation (94-97) % Chloride (98-107) mmol/L BUN (7-17) mg/dL Creatinine (0.52-1.04) mg/dL Glucose (74-99) mg/dL POC Glucose (mg/dL) 190 H 193 H 211 H (75-99) mg/dL 10/29/18 10/29/18 10/29/18 Range/Units 16:07 17:01 17:54 WBC (3.8-10.6) k/uL RBC (3.80-5.40) m/uL Hgb (11.4-16.0) gm/dL Hct (34.0-46.0) % Plt Count (150-450) k/uL ABG pCO2 (35-45) mmHg ABG pO2 (83-108) mmHg ABG HCO3 (21-25) mmol/L ABG Total CO2 (19-24) mmol/L ABG O2 Saturation (94-97) % Chloride (98-107) mmol/L BUN (7-17) mg/dL Creatinine (0.52-1.04) mg/dL Glucose (74-99) mg/dL POC Glucose (mg/dL) 171 H 180 H 101 H (75-99) mg/dL 10/29/18 10/29/18 10/29/18 Range/Units 18:57 20:01 21:17 WBC (3.8-10.6) k/uL RBC (3.80-5.40) m/uL Hgb (11.4-16.0) gm/dL Hct (34.0-46.0) % Plt Count (150-450) k/uL ABG pCO2 (35-45) mmHg ABG pO2 (83-108) mmHg ABG HCO3 (21-25) mmol/L ABG Total CO2 (19-24) mmol/L ABG O2 Saturation (94-97) % Chloride (98-107) mmol/L BUN (7-17) mg/dL Creatinine (0.52-1.04) mg/dL Glucose (74-99) mg/dL POC Glucose (mg/dL) 198 H 241 H 191 H (75-99) mg/dL 10/29/18 10/29/18 10/29/18 Range/Units 21:59 23:07 23:59 WBC (3.8-10.6) k/uL RBC (3.80-5.40) m/uL Hgb (11.4-16.0) gm/dL Hct (34.0-46.0) % Plt Count (150-450) k/uL ABG pCO2 (35-45) mmHg ABG pO2 (83-108) mmHg ABG HCO3 (21-25) mmol/L ABG Total CO2 (19-24) mmol/L ABG O2 Saturation (94-97) % Chloride (98-107) mmol/L BUN (7-17) mg/dL Creatinine (0.52-1.04) mg/dL Glucose (74-99) mg/dL POC Glucose (mg/dL) 181 H 160 H 127 H (75-99) mg/dL 10/30/18 10/30/18 10/30/18 Range/Units 00:58 02:04 03:11 WBC (3.8-10.6) k/uL RBC (3.80-5.40) m/uL Hgb (11.4-16.0) gm/dL Hct (34.0-46.0) % Plt Count (150-450) k/uL ABG pCO2 (35-45) mmHg ABG pO2 (83-108) mmHg ABG HCO3 (21-25) mmol/L ABG Total CO2 (19-24) mmol/L ABG O2 Saturation (94-97) % Chloride (98-107) mmol/L BUN (7-17) mg/dL Creatinine (0.52-1.04) mg/dL Glucose (74-99) mg/dL POC Glucose (mg/dL) 143 H 160 H 183 H (75-99) mg/dL 10/30/18 10/30/18 10/30/18 Range/Units 04:00 04:00 04:07 WBC 15.1 H (3.8-10.6) k/uL RBC 3.56 L (3.80-5.40) m/uL Hgb 10.2 L (11.4-16.0) gm/dL Hct 32.0 L (34.0-46.0) % Plt Count 461 H (150-450) k/uL ABG pCO2 (35-45) mmHg ABG pO2 (83-108) mmHg ABG HCO3 (21-25) mmol/L ABG Total CO2 (19-24) mmol/L ABG O2 Saturation (94-97) % Chloride 113 H (98-107) mmol/L BUN 64 H (7-17) mg/dL Creatinine 1.26 H (0.52-1.04) mg/dL Glucose 187 H (74-99) mg/dL POC Glucose (mg/dL) 193 H (75-99) mg/dL 10/30/18 10/30/18 10/30/18 Range/Units 04:59 05:04 06:35 WBC (3.8-10.6) k/uL RBC (3.80-5.40) m/uL Hgb (11.4-16.0) gm/dL Hct (34.0-46.0) % Plt Count (150-450) k/uL ABG pCO2 46 H (35-45) mmHg ABG pO2 109 H (83-108) mmHg ABG HCO3 27 H (21-25) mmol/L ABG Total CO2 28 H (19-24) mmol/L ABG O2 Saturation 98.0 H (94-97) % Chloride (98-107) mmol/L BUN (7-17) mg/dL Creatinine (0.52-1.04) mg/dL Glucose (74-99) mg/dL POC Glucose (mg/dL) 184 H 176 H (75-99) mg/dL 10/30/18 10/30/18 Range/Units 07:07 08:07 WBC (3.8-10.6) k/uL RBC (3.80-5.40) m/uL Hgb (11.4-16.0) gm/dL Hct (34.0-46.0) % Plt Count (150-450) k/uL ABG pCO2 (35-45) mmHg ABG pO2 (83-108) mmHg ABG HCO3 (21-25) mmol/L ABG Total CO2 (19-24) mmol/L ABG O2 Saturation (94-97) % Chloride (98-107) mmol/L BUN (7-17) mg/dL Creatinine (0.52-1.04) mg/dL Glucose (74-99) mg/dL POC Glucose (mg/dL) 181 H 173 H (75-99) mg/dL Assessment and Plan Assessment: #1 nonoliguric acute kidney injury secondary to ischemic ATN. Creatinine currently stable. #2 septic shock secondary to pneumonia, off levo fed. #3 A. fib with RVR, rate controlled #4 metabolic acidosis resolved. #5 diarrhea, C. diff negative #6 edema #7 hypertension. Goal 120-140/90 Plan: #1 creatinine stable, with hypernatremia better and D5 water stopped this morning by the primary team #2 change all fluids which includes normal saline to D5 water. #3 avoid nephrotoxic agents and hypotensive episodes.
--- NOTE | 2018-10-30 09:36 | PN ---
PROGRESS NOTE Mrs. Cota is in sinus rhythm. She has not had any atrial fib for 48 hours. Her blood pressure is slightly elevated. I am recommending Norvasc 5 mg b.i.d. and to hold if systolic is less than 120. S1, S2 heard normally. Lungs reveal bilateral air entry. Patient has a tracheostomy tube. Plan is to continue current medications. Her mental status is unclear whether she is responding appropriately or not. 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 We will continue current medications. From next Wednesday, we will decrease amiodarone to 200 mg b.i.d. MMODL / IJN: [id number] /
[2018-10-30 10:10] LABS: Glucose,Whole Blood 214 mg/dL (75-99)
--- NOTE | 2018-10-30 10:29 | PN ---
PROGRESS NOTE DATE OF SERVICE: October 30, 2018 Critical care time: 34 minutes. This is a 58-year-old female admitted back on October 14 with an episode of sepsis and pneumonia. On the , she developed acute hypoxemic respiratory failure and was intubated and mechanically ventilated. Because of failure to wean, on October 28, she had a tracheostomy and PEG tube performed by Dr. Kevin Fung. The patient remains on the ventilator. The best modality we found for her was VC plus mode or pressure regulated volume control. Her inspiratory time is 1 second. Her targeted tidal volume is 350 mL. Her FiO2 is 50% to be dropped down to 40%. Her PEEP is at 12 and her rate is 30 breaths per minute. Her blood gases on those settings at 50% show pO2 of 109, pCO2 46 and a pH 7.37. The patient will have a daily interruption of sedation as she has had every day. Currently on insulin at 5 units/hour, propofol at 20 mcg/kg per per minute and Vital high-protein at 44 with a goal of 44 mL an hour. I did contact [facility] for a potential transfer in the next couple days or so. Other than that, her situation has been relatively stable. PHYSICAL EXAMINATION: Current vital signs are reviewed. Temperature is 98.7, heart rate 86, respiratory rate is 30 and blood pressure is 144/73 with a saturation of 96%. Appears in no acute distress. HEENT examination is grossly unremarkable. NECK: Supple. Full range of motion. No adenopathy, thyromegaly or neck vein distention. She has a midline tracheostomy. CARDIOVASCULAR examination reveals regular rhythm rate. Heart rate 86 beats per minute. S1, S2 normal. There is no murmur. LUNGS: Reveal diffuse rhonchi. Breath sounds equal bilaterally. No wheezes or crackles. ABDOMEN: Soft. Bowel sounds are heard. PEG tube noted. EXTREMITIES: Intact. Minimal edema. SKIN: Without rash. NEUROLOGIC examination will be detailed once she has a daily interruption of sedation. LABS: Reviewed. White count 15.1, hemoglobin 10.2, hematocrit 32.0, platelet count [id number]. Sodium 145, potassium 4.8, chloride 113, CO2 is 26, anion gap 6. BUN and creatinine were 64 and 1.26. The rest of the labs are reviewed. Microbiologic studies show mostly Aminta in the sputum and in the bronch washings. Medications are reviewed. ASSESSMENT: 1. Acute hypoxemic and hypercapnic respiratory failure secondary to bilateral pneumonia, right greater than left, which required intubation and mechanical ventilation on October 19. 2. Subsequent bronchoscopy on October 21, with negative culture data. 3. Status post tracheostomy and PEG tube placement, postop day #2, done on October 28, for failure to wean. 4. History of sepsis and pneumonia. 5. Hypotension, secondary to sepsis, improved. 6. Type 2 diabetes mellitus. 7. History of chronic obstructive pulmonary disease/asthma. 8. Small right-sided pleural effusion. 9. Multiple other medical problems and comorbidities. PLAN: The patient is doing reasonably well. She is postop day #2, status post tracheostomy and PEG tube placement. She remains on the VC plus mode. Her FiO2 can be dropped from 50 to 40 percent. The next change will be a PEEP change. Her blood gases showed a PO2 109, pCO2 46, pH 7.37. She remains on insulin 5 units an hours, propofol at 20 mcg/kg per per minute and her tube feeds. She will have a daily interruption of sedation. Her hemodynamics and respiratory status have remained stable. Critical care time 34 minute. MMODL / SUNDARN: [id number] /
[2018-10-30 11:16] LABS: Glucose,Whole Blood 147 mg/dL (75-99)
[2018-10-30 12:09] LABS: Glucose,Whole Blood 182 mg/dL (75-99)
[2018-10-30] MEDS: CLEVIDIPINE BUTYRATE 25 MG in EMPTY BAG 1 BAG IV SCH (12:53)
[2018-10-30 13:20] LABS: Glucose,Whole Blood 165 mg/dL (75-99)
[2018-10-30 14:05] LABS: Glucose,Whole Blood 165 mg/dL (75-99)
[2018-10-30 15:05] LABS: Glucose,Whole Blood 169 mg/dL (75-99)
[2018-10-30 16:08] LABS: Glucose,Whole Blood 189 mg/dL (75-99)
[2018-10-30 17:09] LABS: Glucose,Whole Blood 165 mg/dL (75-99)
[2018-10-30 18:19] LABS: Glucose,Whole Blood 186 mg/dL (75-99)
[2018-10-30 18:57] LABS: Glucose,Whole Blood 198 mg/dL (75-99)
[2018-10-30 20:07] LABS: Glucose,Whole Blood 221 mg/dL (75-99)
[2018-10-30] MEDS: ATORVASTATIN 40 MG TAB PO SCH (20:44)
[2018-10-30] MEDS: MONTELUKAST 10 MG TAB PO SCH (20:44)
[2018-10-30] MEDS: SERTRALINE 50 MG TAB PO SCH (20:45)
[2018-10-30 21:22] LABS: Glucose,Whole Blood 187 mg/dL (75-99)
[2018-10-30 22:04] LABS: Glucose,Whole Blood 199 mg/dL (75-99)
[2018-10-30] MEDS: FLUCONAZOLE ORAL SUSP 1,400 MG/35 ML BOTTLE PO SCH (23:00)
[2018-10-30 23:14] LABS: Glucose,Whole Blood 172 mg/dL (75-99)
[2018-10-31 00:03] LABS: Glucose,Whole Blood 169 mg/dL (75-99)
[2018-10-31 01:07] LABS: Glucose,Whole Blood 164 mg/dL (75-99)
[2018-10-31 02:16] LABS: Glucose,Whole Blood 152 mg/dL (75-99)
--- NOTE | 2018-10-31 02:50 | P.PN ---
Subjective Progress Note Date: 10/30/18 Principal diagnosis: Sepsis secondary to pneumonia Septic shock Celeste meza is a 58-year-old female known history of asthma, diabetes type 2, hypertension and hyperlipidemia was admitted to the hospital with the complaints of shortness of breath, cough with yellow sputum production 4 days. Patient was lethargic and weak and was confused and she came to the hospital. Patient is being treated for sepsis/septic shock secondary to pneumonia and went into respiratory failure. Currently patient in the MICU. Patient went into atrial fibrillation and was given a dose of Cardizem and converted back to sinus rhythm. 10/25/2018 Patient is currently on mechanical ventilator. Assist control with PEEP of 12, FiO2 50%. Patient went into atrial fibrillation last night and was given amiodarone bolus. Currently on oral amiodarone. Anticoagulation with Eliquis. Being continued on antibiotics the form of Zosyn. Sputum Cultures growing Aminta. Patient is off pressor support. WBC 12.4 and 1.29. Patient has been afebrile otherwise. 10/26/2018 Currently is on mechanical ventilator. Patient is otherwise converted to sinus rhythm. On oral amiodarone now. Patient is being continued on antibiotics in the form of Zosyn. WBC 11.0 patient has been afebrile otherwise. Currently on tube feeding and chest x-ray showed correlate for pneumonia and CHF not excluded. Patient was given a dose of IV Lasix today. Creatinine level is 1.49. Pulmonary, nephrology and cardiology and ID is following. 10/27/2018 Patient is currently on mechanical ventilator. Continued on antibiotics. Maintaining sinus rhythm. Eliquis is on hold. General surgery is planning for PEG tube placement tomorrow. Chest x-ray showed correlate for pneumonia. WBC 13.2 and creatinine level slightly improved to 1.39 10/28/2018 Patient is scheduled for tracheostomy and PEG tube placement today. tube feedings are held. Creatinine level is stable at 1.4. WBC count 12.1. Sodium level CXLVI and IV fluids will be changed to D5 water. Chest x-ray showed improved aeration. No fever no chills. 10/29/2018 Patient is status post trach and PEG tube placement. Patient is currently on VC plus modality ventilation. Chest x-ray showed stable findings compared to yesterday. Sodium level increased to 147 . BUN 65 and creatinine 1.45 Zosyn has been discontinued and patient was started on Diflucan. Fungal cultures growing Aminta albicans. No fever no chills. WBC 13.0 and hemoglobin 10 10/30/2018 Patient is currently in the MICU. Able to open her eyes but could not respond to verbal stimuli. Status post trach and PEG tube placed. Patient was started on tube feeding. WBC count 15.1 and creatinine 1.29. Hemoglobin 10.2 Chest x-ray showed worsening right basilar airspace disease. Pulmonary, ID and surgery is following. Current medications reviewed. Objective - Vital Signs Vital signs: Vital Signs Temp 99.4 F 10/30/18 12:00 Pulse 89 10/30/18 15:00 Resp 30 H 10/30/18 15:00 BP 148/82 10/28/18 10:00 Pulse Ox 95 10/30/18 15:00 Intake & Output 10/29/18 10/30/18 10/30/18 18:59 06:59 18:59 Intake Total 4867.522 8577.541 855.665 Output Total 1305 1175 1310 Balance -130.651 38.541 -454.335 Weight 98.2 kg 102.8 kg Intake: IV 540 600 210 0.9NS 160 Dextrose 5% in Water 1, 500 600 50 000 ml @ 50 mls/hr IV . Q20H [facility] Rx#:[id number] Sodium Chloride 0.9% 1, 40 000 ml @ 20 mls/hr IV . Q24H [facility] Rx#:[id number] Intake, IV Titration 264.349 163.541 143.665 Amount Insulin Regular 100 unit 92.499 68.680 43.665 In Sodium Chloride 0.9% 100 ml @ Per Protocol IV .Q0M [facility] Rx#:[id number] Propofol 1,000 mg In 171.850 94.861 100.000 Empty Bag 1 bag @ Titrate IV .Q0M [facility] Rx#: [id number] Tube Feeding 210 360 382 Other 160 90 120 Output: Urine 905 1175 910 Stool 400 400 Other: Voiding Method Indwelling Catheter Indwelling Catheter Indwelling Catheter ABP, PAP, CO, CI - Last Documented Arterial Blood Pressure 150/70 - Exam PHYSICAL EXAMINATION: Patient Is currently on VC+ modality ventilation. Able to open her eyes but does not respond to verbal stimuli. Neck is supple. Pupils reactive. Nostrils clear. Oral cavity is moist. Ears reveal no drainage. Neck reveals no JVD, carotid bruits, or thyromegaly. CHEST EXAMINATION: Tracheostomy tube in place. Symmetrical expansion. Bibasilar diminished air entry.. CARDIAC: Normal S1, S2 with no gallops. No murmurs ABDOMEN: Soft. Bowel sounds normal. No organomegaly. No abdominal bruits. . PEG tube in place. Fecal collection tube and Alvarez catheter in place. Extremities: reveal no edema. No clubbing or cyanosis Neurologically .patient currently sedated. No gross neurological deficit. Skin: No rash or skin lesions. Psychiatric: Could not be assessed Musculoskeletal: No joint swelling or deformity. - Labs CBC & Chem 7: 10/30/18 04:00 10/30/18 04:00 Labs: Abnormal Lab Results - Last 24 Hours (Table) 10/29/18 10/29/18 10/29/18 Range/Units 16:07 17:01 17:54 WBC (3.8-10.6) k/uL RBC (3.80-5.40) m/uL Hgb (11.4-16.0) gm/dL Hct (34.0-46.0) % Plt Count (150-450) k/uL ABG pCO2 (35-45) mmHg ABG pO2 (83-108) mmHg ABG HCO3 (21-25) mmol/L ABG Total CO2 (19-24) mmol/L ABG O2 Saturation (94-97) % Chloride (98-107) mmol/L BUN (7-17) mg/dL Creatinine (0.52-1.04) mg/dL Glucose (74-99) mg/dL POC Glucose (mg/dL) 171 H 180 H 101 H (75-99) mg/dL 10/29/18 10/29/18 10/29/18 Range/Units 18:57 20:01 21:17 WBC (3.8-10.6) k/uL RBC (3.80-5.40) m/uL Hgb (11.4-16.0) gm/dL Hct (34.0-46.0) % Plt Count (150-450) k/uL ABG pCO2 (35-45) mmHg ABG pO2 (83-108) mmHg ABG HCO3 (21-25) mmol/L ABG Total CO2 (19-24) mmol/L ABG O2 Saturation (94-97) % Chloride (98-107) mmol/L BUN (7-17) mg/dL Creatinine (0.52-1.04) mg/dL Glucose (74-99) mg/dL POC Glucose (mg/dL) 198 H 241 H 191 H (75-99) mg/dL 10/29/18 10/29/18 10/29/18 Range/Units 21:59 23:07 23:59 WBC (3.8-10.6) k/uL RBC (3.80-5.40) m/uL Hgb (11.4-16.0) gm/dL Hct (34.0-46.0) % Plt Count (150-450) k/uL ABG pCO2 (35-45) mmHg ABG pO2 (83-108) mmHg ABG HCO3 (21-25) mmol/L ABG Total CO2 (19-24) mmol/L ABG O2 Saturation (94-97) % Chloride (98-107) mmol/L BUN (7-17) mg/dL Creatinine (0.52-1.04) mg/dL Glucose (74-99) mg/dL POC Glucose (mg/dL) 181 H 160 H 127 H (75-99) mg/dL 10/30/18 10/30/18 10/30/18 Range/Units 00:58 02:04 03:11 WBC (3.8-10.6) k/uL RBC (3.80-5.40) m/uL Hgb (11.4-16.0) gm/dL Hct (34.0-46.0) % Plt Count (150-450) k/uL ABG pCO2 (35-45) mmHg ABG pO2 (83-108) mmHg ABG HCO3 (21-25) mmol/L ABG Total CO2 (19-24) mmol/L ABG O2 Saturation (94-97) % Chloride (98-107) mmol/L BUN (7-17) mg/dL Creatinine (0.52-1.04) mg/dL Glucose (74-99) mg/dL POC Glucose (mg/dL) 143 H 160 H 183 H (75-99) mg/dL 06/30/19 06/30/19 06/30/19 Range/Units 04:00 04:00 04:07 WBC 15.1 H (3.8-10.6) k/uL RBC 3.56 L (3.80-5.40) m/uL Hgb 10.2 L (11.4-16.0) gm/dL Hct 32.0 L (34.0-46.0) % Plt Count 461 H (150-450) k/uL ABG pCO2 (35-45) mmHg ABG pO2 (83-108) mmHg ABG HCO3 (21-25) mmol/L ABG Total CO2 (19-24) mmol/L ABG O2 Saturation (94-97) % Chloride 113 H (98-107) mmol/L BUN 64 H (7-17) mg/dL Creatinine 1.26 H (0.52-1.04) mg/dL Glucose 187 H (74-99) mg/dL POC Glucose (mg/dL) 193 H (75-99) mg/dL 10/30/18 10/30/18 10/30/18 Range/Units 04:59 05:04 06:35 WBC (3.8-10.6) k/uL RBC (3.80-5.40) m/uL Hgb (11.4-16.0) gm/dL Hct (34.0-46.0) % Plt Count (150-450) k/uL ABG pCO2 46 H (35-45) mmHg ABG pO2 109 H (83-108) mmHg ABG HCO3 27 H (21-25) mmol/L ABG Total CO2 28 H (19-24) mmol/L ABG O2 Saturation 98.0 H (94-97) % Chloride (98-107) mmol/L BUN (7-17) mg/dL Creatinine (0.52-1.04) mg/dL Glucose (74-99) mg/dL POC Glucose (mg/dL) 184 H 176 H (75-99) mg/dL 10/30/18 10/30/18 10/30/18 Range/Units 07:07 08:07 09:14 WBC (3.8-10.6) k/uL RBC (3.80-5.40) m/uL Hgb (11.4-16.0) gm/dL Hct (34.0-46.0) % Plt Count (150-450) k/uL ABG pCO2 (35-45) mmHg ABG pO2 (83-108) mmHg ABG HCO3 (21-25) mmol/L ABG Total CO2 (19-24) mmol/L ABG O2 Saturation (94-97) % Chloride (98-107) mmol/L BUN (7-17) mg/dL Creatinine (0.52-1.04) mg/dL Glucose (74-99) mg/dL POC Glucose (mg/dL) 181 H 173 H 196 H (75-99) mg/dL 10/30/18 10/30/18 10/30/18 Range/Units 10:08 11:15 12:02 WBC (3.8-10.6) k/uL RBC (3.80-5.40) m/uL Hgb (11.4-16.0) gm/dL Hct (34.0-46.0) % Plt Count (150-450) k/uL ABG pCO2 (35-45) mmHg ABG pO2 (83-108) mmHg ABG HCO3 (21-25) mmol/L ABG Total CO2 (19-24) mmol/L ABG O2 Saturation (94-97) % Chloride (98-107) mmol/L BUN (7-17) mg/dL Creatinine (0.52-1.04) mg/dL Glucose (74-99) mg/dL POC Glucose (mg/dL) 214 H 147 H 182 H (75-99) mg/dL 10/30/18 10/30/18 10/30/18 Range/Units 13:18 14:04 15:03 WBC (3.8-10.6) k/uL RBC (3.80-5.40) m/uL Hgb (11.4-16.0) gm/dL Hct (34.0-46.0) % Plt Count (150-450) k/uL ABG pCO2 (35-45) mmHg ABG pO2 (83-108) mmHg ABG HCO3 (21-25) mmol/L ABG Total CO2 (19-24) mmol/L ABG O2 Saturation (94-97) % Chloride (98-107) mmol/L BUN (7-17) mg/dL Creatinine (0.52-1.04) mg/dL Glucose (74-99) mg/dL POC Glucose (mg/dL) 165 H 165 H 169 H (75-99) mg/dL Assessment and Plan Assessment: Acute hypoxemic and hypercapnic respiratory failure requiring mechanical ventilation. Failure to wean from ventilator. Status post trach and PEG tube placement. Acute metabolic encephalopathy secondary infection Sepsis/septic shock secondary to right lower lobe pneumonia. Likely community- acquired Atrial fibrillation with rapid regular rate Acute kidney injury secondary to ATN due to hemodynamic instability and sepsis. Creatinine peaked at 1.6. Currently on 1.29--1.49--1.39--1.4--1.45--1.29 Insulin-dependent diabetes type 2 Acute Asthma exacerbation Metabolic acidosis Paroxysmal atrial fibrillation Hypovolemic hyponatremia Hyperlipidemia Plan: Patient is currently on mechanical ventilator. Pulmonary is following. Patient was continued on antibiotics in the form of Zosyn. Currently started on Diflucan since the fungal culture growing Aminta albicans.. ID is on board. Sputum culture is growing Aminta. Started on Diflucan. Continue with oral amiodarone. Patient was given amiodarone bolus. Converted to sinus rhythm now. Continue the current insulin dosing and titrate as needed. Prognosis is guarded. IV fluids in the form of D5 water. Pulmonary, ID, nephrology is following. Possible transfer to select specialty/ LTAC once cleared by pulmonary. . Time with Patient: Greater than 30
[2018-10-31 03:29] LABS: Glucose,Whole Blood 151 mg/dL (75-99)
[2018-10-31] MEDS: IPRATROPIUM-ALBUTEROL 3 ML NEB INHALATION SCH ×6 (03:29→23:46)
[2018-10-31 04:05] LABS: Glucose,Whole Blood 151 mg/dL (75-99)
[2018-10-31] MEDS: PROPOFOL 1,000 MG in EMPTY BAG 1 BAG IV SCH (04:07)
[2018-10-31 04:50] LABS: ABG Base Excess 3.4 mmol/L; ABG HCO3 28 mmol/L (21-25); ABG Oxygen Saturation 96.5 % (94-97); ABG PCO2 42 mmHg (35-45); ABG PH 7.43 (7.35-7.45); ABG PO2 88 mmHg (83-108); ABG TCO2 29 mmol/L (19-24)
[2018-10-31 04:55] LABS: Glucose,Whole Blood 150 mg/dL (75-99)
[2018-10-31 05:03] LABS: Allen Test Performed? yes
[2018-10-31] MEDS: HYDROmorphone 1 MG/ML 1 ML SYRINGE IVP PRN ×5 (05:29→20:58)
[2018-10-31] MEDS: methylPREDNISolone SOD SUCCI 125 MG/2 ML VIAL IV SCH (05:30)
[2018-10-31 06:17] LABS: Glucose,Whole Blood 110 mg/dL (75-99)
[2018-10-31 06:35] LABS: HCT 33.1 % (34.0-46.0); HGB 10.3 gm/dL (11.4-16.0); Hypochromasia Slight; MCH 28.3 pg (25.0-35.0); MCHC 31.2 g/dL (31.0-37.0); MCV 90.8 fL (80.0-100.0); Mean Platelet Volume 8.4; Platelet Count 404 k/uL (150-450); RBC 3.64 m/uL (3.80-5.40); RDW 14.9 % (11.5-15.5); WBC 16.6 k/uL (3.8-10.6)
[2018-10-31 07:11] LABS: Calcium 8.6 mg/dL (8.4-10.2); Potassium 4.6 mmol/L (3.5-5.1)
[2018-10-31] MEDS: BUDESONIDE 1 MG/2 ML NEBU INHALATION SCH ×2 (07:19→20:11)
[2018-10-31] MEDS: FORMOTEROL FUMARATE 20 MCG/2 ML NEBU INHALATION SCH ×2 (07:19→20:11)
[2018-10-31 07:24] LABS: Glucose,Whole Blood 101 mg/dL (75-99)
[2018-10-31] MEDS: METOPROLOL TARTRATE 25 MG TAB PO SCH ×2 (08:06→20:52)
[2018-10-31] MEDS: MAGNESIUM OXIDE 400 MG TAB PO SCH (08:06)
[2018-10-31] MEDS: CHLORHEXIDINE GLUCONATE 15 ML CUP MUCOUS MEM SCH ×2 (08:06→20:52)
[2018-10-31] MEDS: PANTOPRAZOLE 40 MG/10 ML VIAL IVP SCH ×2 (08:06→20:53)
[2018-10-31] MEDS: AMIODARONE 200 MG TAB PO SCH ×2 (08:06→20:52)
[2018-10-31] MEDS: amLODIPine 5 MG TAB PO SCH ×2 (08:06→20:52)
[2018-10-31] MEDS: MAG HYDROX/AL HYDROX/SIMETH 30 ML, LIDOCAINE VISCOUS 30 ML, NYSTATIN 100,000 UNIT/ML SU... PO SCH ×12 (08:07→20:53)
[2018-10-31] MEDS: NOREPINEPHRINE 4 MG in SODIUM CHLORIDE 0.9% 250 ML IV SCH ×2 (08:07→23:54)
[2018-10-31 08:33] LABS: Glucose,Whole Blood 184 mg/dL (75-99)
[2018-10-31 10:53] LABS: Glucose,Whole Blood 152 mg/dL (75-99)
--- NOTE | 2018-10-31 11:30 | P.PN ---
<AnneDanuta Celeste - Last Filed: 10/31/18 11:26> Subjective Progress Note Date: 10/31/18 CHIEF COMPLAINT: Trach and PEG placement HISTORY OF PRESENT ILLNESS: 58-year-old female who is admitted to the hospital secondary to bilateral pneumonia. Patient is s/p trach and peg PHYSICAL EXAM: VITAL SIGNS: Reviewed. GENERAL: Well-developed in no acute distress. HEENT: Trach intact without bleeding or signs of infection. No sclera icterus. Extraocular movements grossly intact. Moist buccal mucosa. Head is atraumatic, normocephalic. ABDOMEN: Soft. Nondistended. Positive bowel sounds. PEG tube intact without bleeding or signs of infection. NEUROLOGIC: Lethargic. Opens eyes with verbal stimuli. ASSESSMENT: 1. Acute hypoxic respiratory failure secondary to bilateral pneumonia requiring mechanical ventilation PLAN: Continue ventilator management per Dr. Knowles Continue tube feedings as tolerated Stable from a surgical perspective Nurse practitioner note has been reviewed by physician. Signing provider agrees with the documented findings, assessment, and plan of care. Objective - Vital Signs Vital signs: Vital Signs Temp 98.7 F 10/31/18 08:00 Pulse 73 10/31/18 10:00 Resp 32 H 10/31/18 10:00 BP 181/85 10/31/18 10:00 Pulse Ox 95 10/31/18 10:00 Intake & Output 10/30/18 10/31/18 10/31/18 18:59 06:59 18:59 Intake Total 1844.328 1733.656 318.155 Output Total 1720 1005 800 Balance -516.714 154.656 -481.845 Weight 95.2 kg Intake: IV 270 260 60 0.9NS 220 260 60 Dextrose 5% in Water 1, 50 000 ml @ 50 mls/hr IV . Q20H [facility] Rx#:[id number] Intake, IV Titration 269.286 179.656 66.155 Amount Insulin Regular 100 unit 69.286 79.656 18.045 In Sodium Chloride 0.9% 100 ml @ Per Protocol IV .Q0M [facility] Rx#:[id number] Propofol 1,000 mg In 200.000 100 48.11 Empty Bag 1 bag @ Titrate IV .Q0M [facility] Rx#: [id number] Oral 60 Tube Feeding 514 660 132 Other 150 60 Output: Urine 1320 1005 800 Stool 400 Other: Voiding Method Indwelling Catheter Indwelling Catheter Indwelling Catheter ABP, PAP, CO, CI - Last Documented Arterial Blood Pressure 118/101 - Labs CBC & Chem 7: 10/31/18 04:40 10/31/18 04:40 Labs: Abnormal Lab Results - Last 24 Hours (Table) 10/30/18 10/30/18 10/30/18 Range/Units 12:02 13:18 14:04 WBC (3.8-10.6) k/uL RBC (3.80-5.40) m/uL Hgb (11.4-16.0) gm/dL Hct (34.0-46.0) % ABG HCO3 (21-25) mmol/L ABG Total CO2 (19-24) mmol/L Sodium (137-145) mmol/L Chloride (98-107) mmol/L BUN (7-17) mg/dL Creatinine (0.52-1.04) mg/dL Glucose (74-99) mg/dL POC Glucose (mg/dL) 182 H 165 H 165 H (75-99) mg/dL 10/30/18 10/30/18 10/30/18 Range/Units 15:03 16:05 17:06 WBC (3.8-10.6) k/uL RBC (3.80-5.40) m/uL Hgb (11.4-16.0) gm/dL Hct (34.0-46.0) % ABG HCO3 (21-25) mmol/L ABG Total CO2 (19-24) mmol/L Sodium (137-145) mmol/L Chloride (98-107) mmol/L BUN (7-17) mg/dL Creatinine (0.52-1.04) mg/dL Glucose (74-99) mg/dL POC Glucose (mg/dL) 169 H 189 H 165 H (75-99) mg/dL 10/30/18 10/30/18 10/30/18 Range/Units 17:58 18:54 20:02 WBC (3.8-10.6) k/uL RBC (3.80-5.40) m/uL Hgb (11.4-16.0) gm/dL Hct (34.0-46.0) % ABG HCO3 (21-25) mmol/L ABG Total CO2 (19-24) mmol/L Sodium (137-145) mmol/L Chloride (98-107) mmol/L BUN (7-17) mg/dL Creatinine (0.52-1.04) mg/dL Glucose (74-99) mg/dL POC Glucose (mg/dL) 186 H 198 H 221 H (75-99) mg/dL 10/30/18 10/30/18 10/30/18 Range/Units 21:17 22:00 23:10 WBC (3.8-10.6) k/uL RBC (3.80-5.40) m/uL Hgb (11.4-16.0) gm/dL Hct (34.0-46.0) % ABG HCO3 (21-25) mmol/L ABG Total CO2 (19-24) mmol/L Sodium (137-145) mmol/L Chloride (98-107) mmol/L BUN (7-17) mg/dL Creatinine (0.52-1.04) mg/dL Glucose (74-99) mg/dL POC Glucose (mg/dL) 187 H 199 H 172 H (75-99) mg/dL 10/31/18 10/31/18 10/31/18 Range/Units 00:00 00:52 02:00 WBC (3.8-10.6) k/uL RBC (3.80-5.40) m/uL Hgb (11.4-16.0) gm/dL Hct (34.0-46.0) % ABG HCO3 (21-25) mmol/L ABG Total CO2 (19-24) mmol/L Sodium (137-145) mmol/L Chloride (98-107) mmol/L BUN (7-17) mg/dL Creatinine (0.52-1.04) mg/dL Glucose (74-99) mg/dL POC Glucose (mg/dL) 169 H 164 H 152 H (75-99) mg/dL 10/31/18 10/31/18 10/31/18 Range/Units 03:26 04:01 04:40 WBC 16.6 H (3.8-10.6) k/uL RBC 3.64 L (3.80-5.40) m/uL Hgb 10.3 L (11.4-16.0) gm/dL Hct 33.1 L (34.0-46.0) % ABG HCO3 (21-25) mmol/L ABG Total CO2 (19-24) mmol/L Sodium (137-145) mmol/L Chloride (98-107) mmol/L BUN (7-17) mg/dL Creatinine (0.52-1.04) mg/dL Glucose (74-99) mg/dL POC Glucose (mg/dL) 151 H 151 H (75-99) mg/dL 10/31/18 10/31/18 10/31/18 Range/Units 04:40 04:44 04:44 WBC (3.8-10.6) k/uL RBC (3.80-5.40) m/uL Hgb (11.4-16.0) gm/dL Hct (34.0-46.0) % ABG HCO3 28 H (21-25) mmol/L ABG Total CO2 29 H (19-24) mmol/L Sodium 148 H (137-145) mmol/L Chloride 113 H (98-107) mmol/L BUN 62 H (7-17) mg/dL Creatinine 1.08 H (0.52-1.04) mg/dL Glucose 141 H (74-99) mg/dL POC Glucose (mg/dL) 150 H (75-99) mg/dL 10/31/18 10/31/18 10/31/18 Range/Units 06:01 06:58 08:15 WBC (3.8-10.6) k/uL RBC (3.80-5.40) m/uL Hgb (11.4-16.0) gm/dL Hct (34.0-46.0) % ABG HCO3 (21-25) mmol/L ABG Total CO2 (19-24) mmol/L Sodium (137-145) mmol/L Chloride (98-107) mmol/L BUN (7-17) mg/dL Creatinine (0.52-1.04) mg/dL Glucose (74-99) mg/dL POC Glucose (mg/dL) 110 H 101 H 184 H (75-99) mg/dL 10/31/18 Range/Units 10:50 WBC (3.8-10.6) k/uL RBC (3.80-5.40) m/uL Hgb (11.4-16.0) gm/dL Hct (34.0-46.0) % ABG HCO3 (21-25) mmol/L ABG Total CO2 (19-24) mmol/L Sodium (137-145) mmol/L Chloride (98-107) mmol/L BUN (7-17) mg/dL Creatinine (0.52-1.04) mg/dL Glucose (74-99) mg/dL POC Glucose (mg/dL) 152 H (75-99) mg/dL Assessment and Plan (1) S/P percutaneous endoscopic gastrostomy (PEG) tube placement Current Visit: Yes Status: Acute Code(s): Z93.1 - GASTROSTOMY STATUS SNOMED Code(s): 098025595 (2) Status post tracheostomy Current Visit: Yes Status: Acute Code(s): Z93.0 - TRACHEOSTOMY STATUS SNOMED Code(s): 647656263 (3) Bilateral pneumonia Current Visit: Yes Status: Acute Code(s): J18.9 - PNEUMONIA, UNSPECIFIED ORGANISM SNOMED Code(s): 515079667 <Alondra Pickard N - Last Filed: 10/31/18 19:22> Subjective Principal diagnosis: ROS: No fevers or chills. No reports of gastrointestinal bleed. PHYSICAL EXAM: VITAL SIGNS: Reviewed CONSTITUTIONAL: Well developed and in no acute distress. EYES: Conjuctivae without sclera icterus. Extraocular movements grossly intact. HEAD, EARS, NOSE, THROAT: Moist buccal mucosa. Head is atraumatic, normocephalic. No nasal drainage. NECK: Dressings are intact along tracheostomy site. RESPIRATORY: Non-labored respirations and equal bilateral excursions on mechanical ventilator. CARDIOVASCULAR: Palpable 2+ radial pulses. ABDOMEN: Soft nontender. Has rectal drainage system with dark green stool. No blood. PEG intact. MUSCULOSKELETAL: No gross deformity of the lower extremities noted. No clubbing. No cyanosis. SKIN: Good skin turgor. Well perfused. NEUROLOGIC: No focal or lateralizing signs. PSYCH: No purposeful gaze. Objective - Vital Signs Vital signs: Vital Signs Temp 99.4 F 10/31/18 16:00 Pulse 69 10/31/18 19:00 Resp 24 10/31/18 19:00 BP 101/58 10/31/18 19:00 Pulse Ox 96 10/31/18 18:00 Intake & Output 10/31/18 10/31/18 11/01/18 06:59 18:59 06:59 Intake Total 1159.656 907.360 3.933 Output Total 1005 1785 Balance 154.656 -877.640 3.933 Weight 95.2 kg Intake: IV 260 220 0.9NS 260 220 Intake, IV Titration 179.656 143.360 3.933 Amount Clevidipine Butyrate 25 29.533 3.933 mg In Empty Bag 1 bag @ 1 MG/HR 2 mls/hr IV .Q24H [facility] Rx#:[id number] Insulin Regular 100 unit 79.656 65.717 In Sodium Chloride 0.9% 100 ml @ Per Protocol IV .Q0M [facility] Rx#:[id number] Propofol 1,000 mg In 100 48.11 Empty Bag 1 bag @ Titrate IV .Q0M [facility] Rx#: [id number] Oral 60 Tube Feeding 660 484 Other 60 Output: Urine 1005 1785 Other: Voiding Method Indwelling Catheter Indwelling Catheter ABP, PAP, CO, CI - Last Documented Arterial Blood Pressure 109/60 - Labs CBC & Chem 7: 10/31/18 04:40 10/31/18 04:40 Labs: Abnormal Lab Results - Last 24 Hours (Table) 10/30/18 10/30/18 10/30/18 Range/Units 20:02 21:17 22:00 WBC (3.8-10.6) k/uL RBC (3.80-5.40) m/uL Hgb (11.4-16.0) gm/dL Hct (34.0-46.0) % ABG HCO3 (21-25) mmol/L ABG Total CO2 (19-24) mmol/L Sodium (137-145) mmol/L Chloride (98-107) mmol/L BUN (7-17) mg/dL Creatinine (0.52-1.04) mg/dL Glucose (74-99) mg/dL POC Glucose (mg/dL) 221 H 187 H 199 H (75-99) mg/dL 10/30/18 10/31/18 10/31/18 Range/Units 23:10 00:00 00:52 WBC (3.8-10.6) k/uL RBC (3.80-5.40) m/uL Hgb (11.4-16.0) gm/dL Hct (34.0-46.0) % ABG HCO3 (21-25) mmol/L ABG Total CO2 (19-24) mmol/L Sodium (137-145) mmol/L Chloride (98-107) mmol/L BUN (7-17) mg/dL Creatinine (0.52-1.04) mg/dL Glucose (74-99) mg/dL POC Glucose (mg/dL) 172 H 169 H 164 H (75-99) mg/dL 10/31/18 10/31/18 10/31/18 Range/Units 02:00 03:26 04:01 WBC (3.8-10.6) k/uL RBC (3.80-5.40) m/uL Hgb (11.4-16.0) gm/dL Hct (34.0-46.0) % ABG HCO3 (21-25) mmol/L ABG Total CO2 (19-24) mmol/L Sodium (137-145) mmol/L Chloride (98-107) mmol/L BUN (7-17) mg/dL Creatinine (0.52-1.04) mg/dL Glucose (74-99) mg/dL POC Glucose (mg/dL) 152 H 151 H 151 H (75-99) mg/dL 10/31/18 10/31/18 10/31/18 Range/Units 04:40 04:40 04:44 WBC 16.6 H (3.8-10.6) k/uL RBC 3.64 L (3.80-5.40) m/uL Hgb 10.3 L (11.4-16.0) gm/dL Hct 33.1 L (34.0-46.0) % ABG HCO3 28 H (21-25) mmol/L ABG Total CO2 29 H (19-24) mmol/L Sodium 148 H (137-145) mmol/L Chloride 113 H (98-107) mmol/L BUN 62 H (7-17) mg/dL Creatinine 1.08 H (0.52-1.04) mg/dL Glucose 141 H (74-99) mg/dL POC Glucose (mg/dL) (75-99) mg/dL 10/31/18 10/31/18 10/31/18 Range/Units 04:44 06:01 06:58 WBC (3.8-10.6) k/uL RBC (3.80-5.40) m/uL Hgb (11.4-16.0) gm/dL Hct (34.0-46.0) % ABG HCO3 (21-25) mmol/L ABG Total CO2 (19-24) mmol/L Sodium (137-145) mmol/L Chloride (98-107) mmol/L BUN (7-17) mg/dL Creatinine (0.52-1.04) mg/dL Glucose (74-99) mg/dL POC Glucose (mg/dL) 150 H 110 H 101 H (75-99) mg/dL 10/31/18 10/31/18 10/31/18 Range/Units 08:15 10:50 12:05 WBC (3.8-10.6) k/uL RBC (3.80-5.40) m/uL Hgb (11.4-16.0) gm/dL Hct (34.0-46.0) % ABG HCO3 (21-25) mmol/L ABG Total CO2 (19-24) mmol/L Sodium (137-145) mmol/L Chloride (98-107) mmol/L BUN (7-17) mg/dL Creatinine (0.52-1.04) mg/dL Glucose (74-99) mg/dL POC Glucose (mg/dL) 184 H 152 H 127 H (75-99) mg/dL 10/31/18 10/31/18 10/31/18 Range/Units 14:45 16:25 18:08 WBC (3.8-10.6) k/uL RBC (3.80-5.40) m/uL Hgb (11.4-16.0) gm/dL Hct (34.0-46.0) % ABG HCO3 (21-25) mmol/L ABG Total CO2 (19-24) mmol/L Sodium (137-145) mmol/L Chloride (98-107) mmol/L BUN (7-17) mg/dL Creatinine (0.52-1.04) mg/dL Glucose (74-99) mg/dL POC Glucose (mg/dL) 116 H 119 H 150 H (75-99) mg/dL
--- NOTE | 2018-10-31 11:37 | XR ---
EXAMINATION TYPE: XR chest 1V portable DATE OF EXAM: 10/31/2018 COMPARISON: Prior chest x-ray 10/30/2018 HISTORY: Shortness of breath TECHNIQUE: Single frontal view of the chest is obtained. FINDINGS: Findings are stable. IMPRESSION: Cardiomegaly, possible basilar atelectasis, pneumonia, effusion.
[2018-10-31 12:08] LABS: Glucose,Whole Blood 127 mg/dL (75-99)
[2018-10-31] MEDS: INSULIN REGULAR 100 UNIT in SODIUM CHLORIDE 0.9% 100 ML IV SCH (12:16)
[2018-10-31] MEDS: CLEVIDIPINE BUTYRATE 25 MG in EMPTY BAG 1 BAG IV SCH ×2 (14:37→18:02)
[2018-10-31 14:59] LABS: Glucose,Whole Blood 116 mg/dL (75-99)
[2018-10-31 16:28] LABS: Glucose,Whole Blood 119 mg/dL (75-99)
--- NOTE | 2018-10-31 17:47 | P.PN ---
Subjective 58-year-old female admitted 2 weeks ago for sepsis and pneumonia. She was intubated. She was eventually trached and had a PEG tube for failure to wean. Today her sedation was turned down. She is not responding to commands as much. She is not moving her upper extremities except for shortening of the shoulders involuntarily. She has fixed gaze and is not following any directions Review of system was not possible due to the patient's condition. Objective - Vital Signs Vital signs: Vital Signs Temp 99.4 F 10/31/18 16:00 Pulse 93 10/31/18 16:00 Resp 24 10/31/18 16:00 BP 161/92 10/31/18 16:00 Pulse Ox 98 10/31/18 16:00 Intake & Output 10/30/18 10/31/18 10/31/18 18:59 06:59 18:59 Intake Total 6487.470 1581.656 650.407 Output Total 1720 1005 1645 Balance -516.714 154.656 -994.593 Weight 95.2 kg Intake: IV 270 260 160 0.9NS 220 260 160 Dextrose 5% in Water 1, 50 000 ml @ 50 mls/hr IV . Q20H [facility] Rx#:[id number] Intake, IV Titration 269.286 179.656 78.407 Amount Clevidipine Butyrate 25 3.667 mg In Empty Bag 1 bag @ 1 MG/HR 2 mls/hr IV .Q24H [facility] Rx#:[id number] Insulin Regular 100 unit 69.286 79.656 26.630 In Sodium Chloride 0.9% 100 ml @ Per Protocol IV .Q0M [facility] Rx#:[id number] Propofol 1,000 mg In 200.000 100 48.11 Empty Bag 1 bag @ Titrate IV .Q0M [facility] Rx#: [id number] Oral 60 Tube Feeding 514 660 352 Other 150 60 Output: Urine 1320 1005 1645 Stool 400 Other: Voiding Method Indwelling Catheter Indwelling Catheter Indwelling Catheter ABP, PAP, CO, CI - Last Documented Arterial Blood Pressure 143/75 - Exam On exam, patient is awake but not responding to any commands or any stimuli HEENT: Conjunctivae normal. eyes normal. NECK: No JVD. No thyroid enlargement. No LNs CARDIOVASCULAR: Sonesta positive RESPIRATION: Breath sounds diminished in the bases. No rhonchi or crackles. No bronchial breathing. ABDOMEN: Soft, nontender . No guarding. no masses palpable. No ascites, No hepatosplenomegaly.Bowel sounds heard. LEGS: No edema. no swelling NERVOUS SYSTEM: physical is not responding to any stimuli. She is not is fine to painful stimuli to the upper extremity is. She is having withdrawal to pl slade reflex on the left but no response to the right lower extremity. Skin: no ulcer no rash - Labs CBC & Chem 7: 10/31/18 04:40 10/31/18 04:40 Labs: Abnormal Lab Results - Last 24 Hours (Table) 10/30/18 10/30/18 10/30/18 Range/Units 17:58 18:54 20:02 WBC (3.8-10.6) k/uL RBC (3.80-5.40) m/uL Hgb (11.4-16.0) gm/dL Hct (34.0-46.0) % ABG HCO3 (21-25) mmol/L ABG Total CO2 (19-24) mmol/L Sodium (137-145) mmol/L Chloride (98-107) mmol/L BUN (7-17) mg/dL Creatinine (0.52-1.04) mg/dL Glucose (74-99) mg/dL POC Glucose (mg/dL) 186 H 198 H 221 H (75-99) mg/dL 10/30/18 10/30/18 10/30/18 Range/Units 21:17 22:00 23:10 WBC (3.8-10.6) k/uL RBC (3.80-5.40) m/uL Hgb (11.4-16.0) gm/dL Hct (34.0-46.0) % ABG HCO3 (21-25) mmol/L ABG Total CO2 (19-24) mmol/L Sodium (137-145) mmol/L Chloride (98-107) mmol/L BUN (7-17) mg/dL Creatinine (0.52-1.04) mg/dL Glucose (74-99) mg/dL POC Glucose (mg/dL) 187 H 199 H 172 H (75-99) mg/dL 10/31/18 10/31/18 10/31/18 Range/Units 00:00 00:52 02:00 WBC (3.8-10.6) k/uL RBC (3.80-5.40) m/uL Hgb (11.4-16.0) gm/dL Hct (34.0-46.0) % ABG HCO3 (21-25) mmol/L ABG Total CO2 (19-24) mmol/L Sodium (137-145) mmol/L Chloride (98-107) mmol/L BUN (7-17) mg/dL Creatinine (0.52-1.04) mg/dL Glucose (74-99) mg/dL POC Glucose (mg/dL) 169 H 164 H 152 H (75-99) mg/dL 10/31/18 10/31/18 10/31/18 Range/Units 03:26 04:01 04:40 WBC 16.6 H (3.8-10.6) k/uL RBC 3.64 L (3.80-5.40) m/uL Hgb 10.3 L (11.4-16.0) gm/dL Hct 33.1 L (34.0-46.0) % ABG HCO3 (21-25) mmol/L ABG Total CO2 (19-24) mmol/L Sodium (137-145) mmol/L Chloride (98-107) mmol/L BUN (7-17) mg/dL Creatinine (0.52-1.04) mg/dL Glucose (74-99) mg/dL POC Glucose (mg/dL) 151 H 151 H (75-99) mg/dL 10/31/18 10/31/18 10/31/18 Range/Units 04:40 04:44 04:44 WBC (3.8-10.6) k/uL RBC (3.80-5.40) m/uL Hgb (11.4-16.0) gm/dL Hct (34.0-46.0) % ABG HCO3 28 H (21-25) mmol/L ABG Total CO2 29 H (19-24) mmol/L Sodium 148 H (137-145) mmol/L Chloride 113 H (98-107) mmol/L BUN 62 H (7-17) mg/dL Creatinine 1.08 H (0.52-1.04) mg/dL Glucose 141 H (74-99) mg/dL POC Glucose (mg/dL) 150 H (75-99) mg/dL 10/31/18 10/31/18 10/31/18 Range/Units 06:01 06:58 08:15 WBC (3.8-10.6) k/uL RBC (3.80-5.40) m/uL Hgb (11.4-16.0) gm/dL Hct (34.0-46.0) % ABG HCO3 (21-25) mmol/L ABG Total CO2 (19-24) mmol/L Sodium (137-145) mmol/L Chloride (98-107) mmol/L BUN (7-17) mg/dL Creatinine (0.52-1.04) mg/dL Glucose (74-99) mg/dL POC Glucose (mg/dL) 110 H 101 H 184 H (75-99) mg/dL 10/31/18 10/31/18 10/31/18 Range/Units 10:50 12:05 14:45 WBC (3.8-10.6) k/uL RBC (3.80-5.40) m/uL Hgb (11.4-16.0) gm/dL Hct (34.0-46.0) % ABG HCO3 (21-25) mmol/L ABG Total CO2 (19-24) mmol/L Sodium (137-145) mmol/L Chloride (98-107) mmol/L BUN (7-17) mg/dL Creatinine (0.52-1.04) mg/dL Glucose (74-99) mg/dL POC Glucose (mg/dL) 152 H 127 H 116 H (75-99) mg/dL 10/31/18 Range/Units 16:25 WBC (3.8-10.6) k/uL RBC (3.80-5.40) m/uL Hgb (11.4-16.0) gm/dL Hct (34.0-46.0) % ABG HCO3 (21-25) mmol/L ABG Total CO2 (19-24) mmol/L Sodium (137-145) mmol/L Chloride (98-107) mmol/L BUN (7-17) mg/dL Creatinine (0.52-1.04) mg/dL Glucose (74-99) mg/dL POC Glucose (mg/dL) 119 H (75-99) mg/dL Assessment and Plan Assessment: acute hypoxemic hypercapnic respiratory failure requiring intubation initially and then requiring tracheostomy and PEG tube placement for failure to wean - Sepsis and pneumonia - Hypertension improved - Diverticulitis - Small right-sided pleural effusion Plan - We'll continue to monitor the patient in neurological status - If the patient's status does not improve vision might need neurology consult and may require computed tomography scan of the head - We'll continue to recommendations and management - Continue rest of medical care - We'll follow for the patient
[2018-10-31 18:09] LABS: Glucose,Whole Blood 150 mg/dL (75-99)
--- NOTE | 2018-10-31 18:29 | P.PN ---
Subjective Progress Note Date: 10/31/18 Today's evaluation of 10/31/2018 the patient is off sedation and the patient is gradually recovering from sedation as she is opening her eyes and she is trying to follow some simple commands. Noted the patient a prolonged hypoxic respiratory failure and the patient was intubated on a mechanical ventilated secondary to an extensive right lower lobe pneumonia. Bronchoscopy was done and did not yield any positive blood culture. The patient's Legionella urine antigen was negative. The rest of the cultures were negative. This morning, the patient started on a mechanical ventilator on assist control mode at the rate of 30 with a tidal volume of 350 and FiO2 of 40% with a PEEP of 12. The patient is on maintenance fluid of 20 mL an hour. The patient is receiving vital high protein at the rate of 44 mL an hour. The patient is calm and comfortable at this point in time. No significant events overnight. She is not having any fever. No chills. No sweats. It estimate site is dry clean and in tact at this point in time. Objective - Vital Signs Vital signs: Vital Signs Temp 99.4 F 10/31/18 16:00 Pulse 77 10/31/18 18:00 Resp 24 10/31/18 18:00 BP 102/52 10/31/18 18:00 Pulse Ox 96 10/31/18 18:00 Intake & Output 10/30/18 10/31/18 10/31/18 18:59 06:59 18:59 Intake Total 8940.385 2330.656 804.273 Output Total 1720 1005 1745 Balance -516.714 154.656 -940.727 Weight 95.2 kg Intake: IV 270 260 200 0.9NS 220 260 200 Dextrose 5% in Water 1, 50 000 ml @ 50 mls/hr IV . Q20H [facility] Rx#:[id number] Intake, IV Titration 269.286 179.656 104.273 Amount Clevidipine Butyrate 25 29.533 mg In Empty Bag 1 bag @ 1 MG/HR 2 mls/hr IV .Q24H [facility] Rx#:[id number] Insulin Regular 100 unit 69.286 79.656 26.630 In Sodium Chloride 0.9% 100 ml @ Per Protocol IV .Q0M [facility] Rx#:[id number] Propofol 1,000 mg In 200.000 100 48.11 Empty Bag 1 bag @ Titrate IV .Q0M [facility] Rx#: [id number] Oral 60 Tube Feeding 514 660 440 Other 150 60 Output: Urine 1320 1005 1745 Stool 400 Other: Voiding Method Indwelling Catheter Indwelling Catheter Indwelling Catheter ABP, PAP, CO, CI - Last Documented Arterial Blood Pressure 109/60 - Exam Gen. appearance, comfortable likely distress. The patient is off sedation for now pH is following some simple commands. She has a tracheostomy tube in place. Head exam was generally normal. There was no scleral icterus or corneal arcus. Mucous membranes were moist. Neck is supple. The patient is a tracheostomy tube in place. No adenopathy. No thyromegaly. No other abnormalities noted. No leaks on the tracheostomy tube. Lung sounds are diminished specially in the right lung base. There is also some crackles and scattered rhonchi heard bilaterally. Cardiac exam revealed the PMI to be normally situated and sized. The rhythm was regular and no extrasystoles were noted during several minutes of auscultation. The first and second heart sounds were normal and physiologic splitting of the second heart sound was noted. There were no murmurs, rubs, clicks, or gallops. Abdominal exam revealed normal bowel sounds. The abdomen was soft, non-tender, and without masses, organomegaly, or appreciable enlargement of the abdominal aorta. Patient has a PEG tube in place. Examination of the extremities revealed easily palpable radial, femoral and pedal pulses. There was no cyanosis, clubbing or edema. Examination of the skin revealed no evidence of significant rashes, suspicious appearing nevi or other concerning lesions. Neurologically the patient is recovering from her sedation. She is opening her eyes. Neurologic exam is nonfocal. She withdraws to painful stimulation all 4 extremities. Pupils are equal and reactive to light. - Labs CBC & Chem 7: 10/31/18 04:40 10/31/18 04:40 Labs: Abnormal Lab Results - Last 24 Hours (Table) 10/30/18 10/30/18 10/30/18 Range/Units 18:54 20:02 21:17 WBC (3.8-10.6) k/uL RBC (3.80-5.40) m/uL Hgb (11.4-16.0) gm/dL Hct (34.0-46.0) % ABG HCO3 (21-25) mmol/L ABG Total CO2 (19-24) mmol/L Sodium (137-145) mmol/L Chloride (98-107) mmol/L BUN (7-17) mg/dL Creatinine (0.52-1.04) mg/dL Glucose (74-99) mg/dL POC Glucose (mg/dL) 198 H 221 H 187 H (75-99) mg/dL 10/30/18 10/30/18 10/31/18 Range/Units 22:00 23:10 00:00 WBC (3.8-10.6) k/uL RBC (3.80-5.40) m/uL Hgb (11.4-16.0) gm/dL Hct (34.0-46.0) % ABG HCO3 (21-25) mmol/L ABG Total CO2 (19-24) mmol/L Sodium (137-145) mmol/L Chloride (98-107) mmol/L BUN (7-17) mg/dL Creatinine (0.52-1.04) mg/dL Glucose (74-99) mg/dL POC Glucose (mg/dL) 199 H 172 H 169 H (75-99) mg/dL 10/31/18 10/31/18 10/31/18 Range/Units 00:52 02:00 03:26 WBC (3.8-10.6) k/uL RBC (3.80-5.40) m/uL Hgb (11.4-16.0) gm/dL Hct (34.0-46.0) % ABG HCO3 (21-25) mmol/L ABG Total CO2 (19-24) mmol/L Sodium (137-145) mmol/L Chloride (98-107) mmol/L BUN (7-17) mg/dL Creatinine (0.52-1.04) mg/dL Glucose (74-99) mg/dL POC Glucose (mg/dL) 164 H 152 H 151 H (75-99) mg/dL 10/31/18 10/31/18 10/31/18 Range/Units 04:01 04:40 04:40 WBC 16.6 H (3.8-10.6) k/uL RBC 3.64 L (3.80-5.40) m/uL Hgb 10.3 L (11.4-16.0) gm/dL Hct 33.1 L (34.0-46.0) % ABG HCO3 (21-25) mmol/L ABG Total CO2 (19-24) mmol/L Sodium 148 H (137-145) mmol/L Chloride 113 H (98-107) mmol/L BUN 62 H (7-17) mg/dL Creatinine 1.08 H (0.52-1.04) mg/dL Glucose 141 H (74-99) mg/dL POC Glucose (mg/dL) 151 H (75-99) mg/dL 10/31/18 10/31/18 10/31/18 Range/Units 04:44 04:44 06:01 WBC (3.8-10.6) k/uL RBC (3.80-5.40) m/uL Hgb (11.4-16.0) gm/dL Hct (34.0-46.0) % ABG HCO3 28 H (21-25) mmol/L ABG Total CO2 29 H (19-24) mmol/L Sodium (137-145) mmol/L Chloride (98-107) mmol/L BUN (7-17) mg/dL Creatinine (0.52-1.04) mg/dL Glucose (74-99) mg/dL POC Glucose (mg/dL) 150 H 110 H (75-99) mg/dL 10/31/18 10/31/18 10/31/18 Range/Units 06:58 08:15 10:50 WBC (3.8-10.6) k/uL RBC (3.80-5.40) m/uL Hgb (11.4-16.0) gm/dL Hct (34.0-46.0) % ABG HCO3 (21-25) mmol/L ABG Total CO2 (19-24) mmol/L Sodium (137-145) mmol/L Chloride (98-107) mmol/L BUN (7-17) mg/dL Creatinine (0.52-1.04) mg/dL Glucose (74-99) mg/dL POC Glucose (mg/dL) 101 H 184 H 152 H (75-99) mg/dL 10/31/18 10/31/18 10/31/18 Range/Units 12:05 14:45 16:25 WBC (3.8-10.6) k/uL RBC (3.80-5.40) m/uL Hgb (11.4-16.0) gm/dL Hct (34.0-46.0) % ABG HCO3 (21-25) mmol/L ABG Total CO2 (19-24) mmol/L Sodium (137-145) mmol/L Chloride (98-107) mmol/L BUN (7-17) mg/dL Creatinine (0.52-1.04) mg/dL Glucose (74-99) mg/dL POC Glucose (mg/dL) 127 H 116 H 119 H (75-99) mg/dL 10/31/18 Range/Units 18:08 WBC (3.8-10.6) k/uL RBC (3.80-5.40) m/uL Hgb (11.4-16.0) gm/dL Hct (34.0-46.0) % ABG HCO3 (21-25) mmol/L ABG Total CO2 (19-24) mmol/L Sodium (137-145) mmol/L Chloride (98-107) mmol/L BUN (7-17) mg/dL Creatinine (0.52-1.04) mg/dL Glucose (74-99) mg/dL POC Glucose (mg/dL) 150 H (75-99) mg/dL Assessment and Plan Plan: Impression 1 acute hypoxic respiratory failure secondary to right lower lobe pneumonia. The patient had prolonged ventilator dependent respiratory failure and the patient is currently post it estimate tube insertion and sedation weaned off and discontinued. 2 status post tracheostomy and PEG tube insertion for prolonged ventilator dependent respiratory failure. Surgery was done on 10/28/2018 3 suspect secondary to pneumonia, improving 4 hypotension secondary to sepsis, resolved 5 diabetes mellitus type 2 6 COPD 7 asthma 8 history of diverticulosis 9 hypertension 10 atrial fibrillation currently back into normal sinus rhythm. Rate is controlled and the patient is currently on amiodarone. Plan We'll continue vent support. I noted the patient was requiring a higher tidal volume. Based on that a made the following modification. I is a tidal volume of to 500. I dropped a respiratory rate up to 24. I dropped a PEEP down to 10 pH was able to tolerate these changes very well and she dropped a respiratory rate of any nicely. She be kept on the same nebulized treatments around the clock. She'll be kept on IV Solu Medrol and those will be dropped down to 40 mg every 12 hours. He is currently off pressors. She completed the course of antibiotics and currently she is only on Diflucan 200 mg by mouth daily. This will be continued. A likely be a gradual wean. Repeat chest x-ray in the morning. Blood gases in the morning. Involve physical therapy. Medical bruits or lower extremities. Enteral feeding for nutritional support. We'll continue to follow. This is a critically care evaluation and I discussed this case with the and the rest of the consultants at the bedside. This ventilation was on a more than 30 minutes. Time with Patient: Greater than 30
--- NOTE | 2018-10-31 18:35 | PN ---
PROGRESS NOTE The patient is seen for followup for acute kidney injury. Her renal function has been improving. She is currently maintained on tube feeding. Sodium is noted to be elevated at 148. The patient's sedation is off. She remains on the vent and she was seen this morning. The blood pressure this morning was 150/78, heart rate of about 90 per minute. Patient is afebrile. Examination of the heart S1, S2. Examination of the lungs, bilateral breath sounds are heard. Abdomen is soft, nontender. Examination of lower extremities shows no edema. There is muscle atrophy noted bilaterally. [facility] exam cannot be performed. LABS: Sodium 148, potassium 4.6, chloride 113, BUN 62, serum creatinine 1.08. ASSESSMENT: 1. Acute kidney injury, currently improved and serum creatinine down to 1.0. Renal function continues to improve. Etiology was ischemic acute tubular necrosis. 2. Septic shock from pneumonia, improving. 3. Atrial fibrillation with RVR with controlled ventricular response. 4. Hypernatremia associated with free water deficit. PLAN: Increase free water down the feeding tube and repeat labs in a.m. MMODL / IJN: [id number] /
[2018-10-31 20:09] LABS: Glucose,Whole Blood 133 mg/dL (75-99)
[2018-10-31] MEDS: MONTELUKAST 10 MG TAB PO SCH (20:52)
[2018-10-31] MEDS: methylPREDNISolone SOD SUCCI 40 MG/ML 1 ML VIAL IV SCH (20:52)
[2018-10-31] MEDS: ATORVASTATIN 40 MG TAB PO SCH (20:52)
[2018-10-31] MEDS: SERTRALINE 50 MG TAB PO SCH (20:53)
[2018-10-31 22:56] LABS: Glucose,Whole Blood 137 mg/dL (75-99)
[2018-10-31] MEDS: FLUCONAZOLE ORAL SUSP 1,400 MG/35 ML BOTTLE PO SCH (23:53)
[2018-10-31 23:57] LABS: Glucose,Whole Blood 250 mg/dL (75-99)
[2018-11-01] MEDS: HYDROmorphone 1 MG/ML 1 ML SYRINGE IVP PRN ×5 (01:08→21:19)
[2018-11-01 01:26] LABS: Glucose,Whole Blood 212 mg/dL (75-99)
[2018-11-01 02:05] LABS: Glucose,Whole Blood 188 mg/dL (75-99)
[2018-11-01] MEDS: IPRATROPIUM-ALBUTEROL 3 ML NEB INHALATION SCH ×5 (03:59→20:47)
[2018-11-01 04:05] LABS: Glucose,Whole Blood 102 mg/dL (75-99)
[2018-11-01 04:49] LABS: ABG HCO3 27 mmol/L (21-25); ABG Oxygen Saturation 96.5 % (94-97); ABG PCO2 42 mmHg (35-45); ABG PH 7.43 (7.35-7.45); ABG PO2 86 mmHg (83-108); ABG TCO2 29 mmol/L (19-24); Allen Test Performed? Yes
[2018-11-01 05:48] LABS: HGB 9.4 gm/dL (11.4-16.0); Hypochromasia Slight; MCH 28.7 pg (25.0-35.0); MCHC 31.5 g/dL (31.0-37.0); MCV 91.2 fL (80.0-100.0); Mean Platelet Volume 8.4; Platelet Count 318 k/uL (150-450); RBC 3.29 m/uL (3.80-5.40); RDW 14.7 % (11.5-15.5); WBC 14.1 k/uL (3.8-10.6)
[2018-11-01 05:57] LABS: Calcium 8.4 mg/dL (8.4-10.2); Potassium 4.8 mmol/L (3.5-5.1)
[2018-11-01 06:21] LABS: Glucose,Whole Blood 148 mg/dL (75-99)
[2018-11-01] MEDS: INSULIN REGULAR 100 UNIT in SODIUM CHLORIDE 0.9% 100 ML IV SCH (07:10)
[2018-11-01] MEDS: BUDESONIDE 1 MG/2 ML NEBU INHALATION SCH ×2 (07:20→20:47)
[2018-11-01] MEDS: FORMOTEROL FUMARATE 20 MCG/2 ML NEBU INHALATION SCH ×2 (07:20→20:47)
--- NOTE | 2018-11-01 08:01 | XR ---
EXAMINATION TYPE: XR chest 1V portable DATE OF EXAM: 11/01/2018 COMPARISON: Prior chest x-ray 10/31/2018 HISTORY: Shortness of breath, intensive care unit management TECHNIQUE: Single frontal view of the chest is obtained. FINDINGS: Tracheostomy tube is overlying appropriate position, right-sided PICC line is stable with the tip over the superior vena cava. No evident pneumothorax. Bibasilar increased density persists, t he left hemidiaphragm is obscured. Heart size is stable. Prominent lung lines suggest underlying COPD . IMPRESSION: Findings are similar to prior exam but interval obscured left hemidiaphragm. There may b e basilar atelectasis and associated effusion, correlate to exclude pneumonia. Follow-up is recommend ed.
[2018-11-01] MEDS: AMIODARONE 200 MG TAB PO SCH ×3 (08:39→21:15)
[2018-11-01] MEDS: METOPROLOL TARTRATE 25 MG TAB PO SCH ×2 (08:46→21:16)
[2018-11-01] MEDS: MAGNESIUM OXIDE 400 MG TAB PO SCH (08:46)
[2018-11-01] MEDS: amLODIPine 5 MG TAB PO SCH ×2 (08:46→21:16)
[2018-11-01] MEDS: PANTOPRAZOLE 40 MG/10 ML VIAL IVP SCH ×2 (08:46→21:16)
[2018-11-01] MEDS: CHLORHEXIDINE GLUCONATE 15 ML CUP MUCOUS MEM SCH ×2 (08:46→21:16)
[2018-11-01 09:19] LABS: Glucose,Whole Blood 106 mg/dL (75-99)
[2018-11-01] MEDS: MAG HYDROX/AL HYDROX/SIMETH 30 ML, LIDOCAINE VISCOUS 30 ML, NYSTATIN 100,000 UNIT/ML SU... PO SCH ×12 (09:36→21:17)
[2018-11-01] MEDS: methylPREDNISolone SOD SUCCI 40 MG/ML 1 ML VIAL IV SCH ×2 (09:36→21:16)
[2018-11-01 11:15] LABS: Glucose,Whole Blood 74 mg/dL (75-99)
[2018-11-01] MEDS: FUROSEMIDE 10 MG/ML 4 ML VIAL IV SCH ×2 (11:33→21:16)
[2018-11-01 12:19] LABS: Glucose,Whole Blood 134 mg/dL (75-99)
[2018-11-01] MEDS: NOREPINEPHRINE 4 MG in SODIUM CHLORIDE 0.9% 250 ML IV SCH (13:16)
[2018-11-01 13:36] LABS: Glucose,Whole Blood 193 mg/dL (75-99)
[2018-11-01 14:00] LABS: Glucose,Whole Blood 187 mg/dL (75-99)
[2018-11-01 15:10] LABS: Glucose,Whole Blood 149 mg/dL (75-99)
--- NOTE | 2018-11-01 15:36 | P.PN ---
Subjective 58-year-old female admitted 2 weeks ago for sepsis and pneumonia. She was intubated. She was eventually trached and had a PEG tube for failure to wean. Today her sedation was turned down. She is not responding to commands as much. She is not moving her upper extremities except for shortening of the shoulders involuntarily. She has fixed gaze and is not following any directions Review of system was not possible due to the patient's condition. Patient still not responding. Sedation and on since yesterday. Review of systems was not possible because of her condition Objective - Vital Signs Vital signs: Vital Signs Temp 100.0 F H 11/01/18 12:00 Pulse 96 11/01/18 15:00 Resp 16 11/01/18 15:00 BP 177/72 11/01/18 15:00 Pulse Ox 96 11/01/18 15:00 Intake & Output 10/31/18 11/01/18 11/01/18 18:59 06:59 18:59 Intake Total 876.552 5590.119 754.654 Output Total 1785 1190 2900 Balance -877.640 112.119 -2145.346 Weight 94.2 kg 94.2 kg Intake: IV 220 240 160 0.9NS 220 240 160 Intake, IV Titration 143.360 58.119 30.654 Amount Clevidipine Butyrate 25 29.533 3.933 mg In Empty Bag 1 bag @ 1 MG/HR 2 mls/hr IV .Q24H [facility] Rx#:[id number] Insulin Regular 100 unit 65.717 54.186 30.654 In Sodium Chloride 0.9% 100 ml @ Per Protocol IV .Q0M [facility] Rx#:[id number] Propofol 1,000 mg In 48.11 Empty Bag 1 bag @ Titrate IV .Q0M [facility] Rx#: [id number] Oral 60 Tube Feeding 484 704 564 Other 300 Output: Urine 2244 609 5591 Urine/Stool Mix 400 Other: Voiding Method Indwelling Catheter Indwelling Catheter Indwelling Catheter ABP, PAP, CO, CI - Last Documented Arterial Blood Pressure 109/60 - Exam On exam, patient is awake but not responding to any commands or any stimuli HEENT: Conjunctivae normal. eyes normal. NECK: No JVD. No thyroid enlargement. No LNs CARDIOVASCULAR: Sonesta positive RESPIRATION: Breath sounds diminished in the bases. No rhonchi or crackles. No bronchial breathing. ABDOMEN: Soft, nontender . No guarding. no masses palpable. No ascites, No hepatosplenomegaly.Bowel sounds heard. LEGS: No edema. no swelling NERVOUS SYSTEM: physical is not responding to any stimuli. She is not is fine to painful stimuli to the upper extremity is. She is having withdrawal to plantar reflex on the left but no response to the right lower extremity. Skin: no ulcer no rash - Labs CBC & Chem 7: 11/01/18 05:06 11/01/18 05:06 Labs: Abnormal Lab Results - Last 24 Hours (Table) 10/31/18 10/31/18 10/31/18 Range/Units 12:00 16:25 18:08 WBC (3.8-10.6) k/uL RBC (3.80-5.40) m/uL Hgb (11.4-16.0) gm/dL Hct (34.0-46.0) % ABG HCO3 (21-25) mmol/L ABG Total CO2 (19-24) mmol/L Sodium (137-145) mmol/L Chloride (98-107) mmol/L BUN (7-17) mg/dL Creatinine (0.52-1.04) mg/dL Glucose (74-99) mg/dL POC Glucose (mg/dL) 119 H 150 H (75-99) mg/dL Procalcitonin 0.16 H (0.02-0.09) ng/mL 10/31/18 10/31/18 10/31/18 Range/Units 19:55 21:54 23:54 WBC (3.8-10.6) k/uL RBC (3.80-5.40) m/uL Hgb (11.4-16.0) gm/dL Hct (34.0-46.0) % ABG HCO3 (21-25) mmol/L ABG Total CO2 (19-24) mmol/L Sodium (137-145) mmol/L Chloride (98-107) mmol/L BUN (7-17) mg/dL Creatinine (0.52-1.04) mg/dL Glucose (74-99) mg/dL POC Glucose (mg/dL) 133 H 137 H 250 H (75-99) mg/dL Procalcitonin (0.02-0.09) ng/mL 11/01/18 11/01/18 11/01/18 Range/Units 00:58 02:03 03:51 WBC (3.8-10.6) k/uL RBC (3.80-5.40) m/uL Hgb (11.4-16.0) gm/dL Hct (34.0-46.0) % ABG HCO3 (21-25) mmol/L ABG Total CO2 (19-24) mmol/L Sodium (137-145) mmol/L Chloride (98-107) mmol/L BUN (7-17) mg/dL Creatinine (0.52-1.04) mg/dL Glucose (74-99) mg/dL POC Glucose (mg/dL) 212 H 188 H 102 H (75-99) mg/dL Procalcitonin (0.02-0.09) ng/mL 11/01/18 11/01/18 11/01/18 Range/Units 04:47 05:06 05:06 WBC 14.1 H (3.8-10.6) k/uL RBC 3.29 L (3.80-5.40) m/uL Hgb 9.4 L (11.4-16.0) gm/dL Hct 30.0 L (34.0-46.0) % ABG HCO3 27 H (21-25) mmol/L ABG Total CO2 29 H (19-24) mmol/L Sodium 148 H (137-145) mmol/L Chloride 116 H (98-107) mmol/L BUN 64 H (7-17) mg/dL Creatinine 1.22 H (0.52-1.04) mg/dL Glucose 110 H (74-99) mg/dL POC Glucose (mg/dL) (75-99) mg/dL Procalcitonin (0.02-0.09) ng/mL 11/01/18 11/01/18 11/01/18 Range/Units 05:54 09:15 11:12 WBC (3.8-10.6) k/uL RBC (3.80-5.40) m/uL Hgb (11.4-16.0) gm/dL Hct (34.0-46.0) % ABG HCO3 (21-25) mmol/L ABG Total CO2 (19-24) mmol/L Sodium (137-145) mmol/L Chloride (98-107) mmol/L BUN (7-17) mg/dL Creatinine (0.52-1.04) mg/dL Glucose (74-99) mg/dL POC Glucose (mg/dL) 148 H 106 H 74 L (75-99) mg/dL Procalcitonin (0.02-0.09) ng/mL 11/01/18 11/01/18 11/01/18 Range/Units 12:05 13:22 13:57 WBC (3.8-10.6) k/uL RBC (3.80-5.40) m/uL Hgb (11.4-16.0) gm/dL Hct (34.0-46.0) % ABG HCO3 (21-25) mmol/L ABG Total CO2 (19-24) mmol/L Sodium (137-145) mmol/L Chloride (98-107) mmol/L BUN (7-17) mg/dL Creatinine (0.52-1.04) mg/dL Glucose (74-99) mg/dL POC Glucose (mg/dL) 134 H 193 H 187 H (75-99) mg/dL Procalcitonin (0.02-0.09) ng/mL 11/01/18 Range/Units 14:56 WBC (3.8-10.6) k/uL RBC (3.80-5.40) m/uL Hgb (11.4-16.0) gm/dL Hct (34.0-46.0) % ABG HCO3 (21-25) mmol/L ABG Total CO2 (19-24) mmol/L Sodium (137-145) mmol/L Chloride (98-107) mmol/L BUN (7-17) mg/dL Creatinine (0.52-1.04) mg/dL Glucose (74-99) mg/dL POC Glucose (mg/dL) 149 H (75-99) mg/dL Procalcitonin (0.02-0.09) ng/mL Microbiology - Last 24 Hours (Table) 10/21/18 13:00 Acid Fast Bacilli Smear - Final Bronchial Washings - Left Acid Fast Bacilli Culture - Preliminary Assessment and Plan Assessment: acute hypoxemic hypercapnic respiratory failure requiring intubation initially and then requiring tracheostomy and PEG tube placement for failure to wean - Sepsis and pneumonia - Hypertension improved - Diverticulitis - Small right-sided pleural effusion Plan - We'll continue to monitor the patient in neurological status - If the patient's status does not improve vision might need neurology consult and may require computed tomography scan of the head - We'll continue to recommendations and management - Continue rest of medical care - We'll follow for the patient 11/01/2018 Patient still not responding Might need CT head without contrast and neurology recommendations Continue rest of the medical care We'll need rehab placement eventually
[2018-11-01 16:30] LABS: Glucose,Whole Blood 159 mg/dL (75-99)
[2018-11-01 17:21] LABS: Glucose,Whole Blood 123 mg/dL (75-99)
--- NOTE | 2018-11-01 17:21 | PN ---
PROGRESS NOTE Patient is seen for followup for acute kidney injury and hypernatremia. She is currently maintained on free water down the feeding tube. Serum sodium is about the same as yesterday. Renal function has improved; creatinine down to 1.2 from peak of about 1.6 mg/dL. Patient is being considered for discharge to [facility]. She is status post trach and PEG. On examination this morning, blood pressure was 147/68, heart rate 85 per minute. She is afebrile. EXAMINATION OF THE HEART: S1 and S2. EXAMINATION OF LUNGS: Bilateral breath sounds are heard. ABDOMEN: Soft, non-tender. Examination of lower extremities shows edema 1+ bilaterally. Muscle atrophy noted. Labs show sodium 148, potassium 4.8, chloride 116, BUN 64, serum creatinine 1.2. ASSESSMENT: 1. Acute kidney injury, acute tubular necrosis, currently improved. 2. Hypernatremia, maintained on free water down the feeding tube, which I will increase. Serum sodium is the same as yesterday. 3. Mild volume overload, maintained on IV Lasix. 4. Respiratory failure, status post trach and PEG. 5. Right lower lobe pneumonia and sepsis, status post antibiotics. PLAN: Increase free water down the feeding tube. Repeat labs in a.m. MMODL / IJN: [id number] /
[2018-11-01 18:07] LABS: Glucose,Whole Blood 166 mg/dL (75-99)
--- NOTE | 2018-11-01 18:22 | P.PN ---
Subjective Progress Note Date: 11/01/18 On 11/01/2018, the patient is being seen for a follow-up. The patient is still off sedation. Unfortunately she has not fully recovered in terms of her mentation. She is gradually opening up her eyes and she grimaces to painful stimulation. Nevertheless, she has not following any simple commands this point in time. She shakes and moves her legs. Her neurologic exam is nonfocal. Pupils are equal and reactive to light. No facial asymmetry. No focal neurological deficit at this point in time. The patient is afebrile. The patient's hemodynamically stable. The patient is a tracheostomy tube in place. The patient remains on a assist-control mode of ventilation with a tidal volume 500 with a rate of 22 of and an FiO2 of 40% with a PEEP of 10. The morning blood gases showed a pH of 7.43 with a pCO2 of 42 and pO2 of 86. This was on FiO2 of 40%. Meanwhile, the patient is still on enteral feeding for nutritional support. The patient is on vital high protein at the rate of 56 mL an hour. The patient is producing adequate amount of urine output. The patient's that fluid balance over the past 24 hours has been in the order of negative balance - 362 mL. The patient is on a maintenance fluid of 20 mL of hour of 0.9 normal saline. She is afebrile. She has some edema in all 4 extremities pressure in the lower extremities. Her urine output is adequate and order of 1-50 mL an hour and the patient is currently being diuresis with Lasix 40 mg IV every 12 hours. She is on IV Protonix. She is on DuoNeb nebulized treatments around the clock. She is on IV Solu-Medrol. She is on oral amiodarone and her rhythm is currently sinus. Her blood pressure is under good control as the patient is taking Norvasc 5 mg by mouth twice a day and she is currently off Cleviprex. She is also on metoprolol 25 mg by mouth twice a day. Objective - Vital Signs Vital signs: Vital Signs Temp 99.9 F H 11/01/18 16:00 Pulse 96 11/01/18 17:00 Resp 26 H 11/01/18 17:00 BP 157/68 11/01/18 17:00 Pulse Ox 96 11/01/18 17:00 Intake & Output 10/31/18 11/01/18 11/01/18 18:59 06:59 18:59 Intake Total 439.417 7767.119 1216.215 Output Total 1785 1190 3575 Balance -877.640 112.119 -2358.785 Weight 94.2 kg 94.2 kg Intake: IV 220 240 200 0.9NS 220 240 200 Intake, IV Titration 143.360 58.119 40.215 Amount Clevidipine Butyrate 25 29.533 3.933 mg In Empty Bag 1 bag @ 1 MG/HR 2 mls/hr IV .Q24H [facility] Rx#:[id number] Insulin Regular 100 unit 65.717 54.186 40.215 In Sodium Chloride 0.9% 100 ml @ Per Protocol IV .Q0M [facility] Rx#:[id number] Propofol 1,000 mg In 48.11 Empty Bag 1 bag @ Titrate IV .Q0M [facility] Rx#: [id number] Oral 60 Tube Feeding 484 704 676 Other 300 300 Output: Urine 6891 501 1642 Urine/Stool Mix 400 Other: Voiding Method Indwelling Catheter Indwelling Catheter Indwelling Catheter ABP, PAP, CO, CI - Last Documented Arterial Blood Pressure 109/60 - Exam Gen. appearance, comfortable likely distress. The patient is off sedation for now pH is following some simple commands. She has a tracheostomy tube in place. Head exam was generally normal. There was no scleral icterus or corneal arcus. Mucous membranes were moist. Neck is supple. The patient is a tracheostomy tube in place. No adenopathy. No thyromegaly. No other abnormalities noted. No leaks on the tracheostomy tube. Lung sounds are diminished specially in the right lung base. There is also some crackles and scattered rhonchi heard bilaterally. Cardiac exam revealed the PMI to be normally situated and sized. The rhythm was regular and no extrasystoles were noted during several minutes of auscultation. The first and second heart sounds were normal and physiologic splitting of the second heart sound was noted. There were no murmurs, rubs, clicks, or gallops. Abdominal exam revealed normal bowel sounds. The abdomen was soft, non-tender, and without masses, organomegaly, or appreciable enlargement of the abdominal aorta. Patient has a PEG tube in place. Examination of the extremities revealed easily palpable radial, femoral and pedal pulses. There was no cyanosis, clubbing or edema. Examination of the skin revealed no evidence of significant rashes, suspicious appearing nevi or other concerning lesions. Neurologically the patient is recovering from her sedation. She is opening her eyes. Neurologic exam is nonfocal. She withdraws to painful stimulation all 4 extremities. Pupils are equal and reactive to light. - Labs CBC & Chem 7: 11/01/18 05:06 11/01/18 05:06 Labs: Abnormal Lab Results - Last 24 Hours (Table) 10/31/18 10/31/18 10/31/18 Range/Units 12:00 19:55 21:54 WBC (3.8-10.6) k/uL RBC (3.80-5.40) m/uL Hgb (11.4-16.0) gm/dL Hct (34.0-46.0) % ABG HCO3 (21-25) mmol/L ABG Total CO2 (19-24) mmol/L Sodium (137-145) mmol/L Chloride (98-107) mmol/L BUN (7-17) mg/dL Creatinine (0.52-1.04) mg/dL Glucose (74-99) mg/dL POC Glucose (mg/dL) 133 H 137 H (75-99) mg/dL Procalcitonin 0.16 H (0.02-0.09) ng/mL 10/31/18 11/01/18 11/01/18 Range/Units 23:54 00:58 02:03 WBC (3.8-10.6) k/uL RBC (3.80-5.40) m/uL Hgb (11.4-16.0) gm/dL Hct (34.0-46.0) % ABG HCO3 (21-25) mmol/L ABG Total CO2 (19-24) mmol/L Sodium (137-145) mmol/L Chloride (98-107) mmol/L BUN (7-17) mg/dL Creatinine (0.52-1.04) mg/dL Glucose (74-99) mg/dL POC Glucose (mg/dL) 250 H 212 H 188 H (75-99) mg/dL Procalcitonin (0.02-0.09) ng/mL 11/01/18 11/01/18 11/01/18 Range/Units 03:51 04:47 05:06 WBC 14.1 H (3.8-10.6) k/uL RBC 3.29 L (3.80-5.40) m/uL Hgb 9.4 L (11.4-16.0) gm/dL Hct 30.0 L (34.0-46.0) % ABG HCO3 27 H (21-25) mmol/L ABG Total CO2 29 H (19-24) mmol/L Sodium (137-145) mmol/L Chloride (98-107) mmol/L BUN (7-17) mg/dL Creatinine (0.52-1.04) mg/dL Glucose (74-99) mg/dL POC Glucose (mg/dL) 102 H (75-99) mg/dL Procalcitonin (0.02-0.09) ng/mL 11/01/18 11/01/18 11/01/18 Range/Units 05:06 05:54 09:15 WBC (3.8-10.6) k/uL RBC (3.80-5.40) m/uL Hgb (11.4-16.0) gm/dL Hct (34.0-46.0) % ABG HCO3 (21-25) mmol/L ABG Total CO2 (19-24) mmol/L Sodium 148 H (137-145) mmol/L Chloride 116 H (98-107) mmol/L BUN 64 H (7-17) mg/dL Creatinine 1.22 H (0.52-1.04) mg/dL Glucose 110 H (74-99) mg/dL POC Glucose (mg/dL) 148 H 106 H (75-99) mg/dL Procalcitonin (0.02-0.09) ng/mL 11/01/18 11/01/18 11/01/18 Range/Units 11:12 12:05 13:22 WBC (3.8-10.6) k/uL RBC (3.80-5.40) m/uL Hgb (11.4-16.0) gm/dL Hct (34.0-46.0) % ABG HCO3 (21-25) mmol/L ABG Total CO2 (19-24) mmol/L Sodium (137-145) mmol/L Chloride (98-107) mmol/L BUN (7-17) mg/dL Creatinine (0.52-1.04) mg/dL Glucose (74-99) mg/dL POC Glucose (mg/dL) 74 L 134 H 193 H (75-99) mg/dL Procalcitonin (0.02-0.09) ng/mL 11/01/18 11/01/18 11/01/18 Range/Units 13:57 14:56 16:15 WBC (3.8-10.6) k/uL RBC (3.80-5.40) m/uL Hgb (11.4-16.0) gm/dL Hct (34.0-46.0) % ABG HCO3 (21-25) mmol/L ABG Total CO2 (19-24) mmol/L Sodium (137-145) mmol/L Chloride (98-107) mmol/L BUN (7-17) mg/dL Creatinine (0.52-1.04) mg/dL Glucose (74-99) mg/dL POC Glucose (mg/dL) 187 H 149 H 159 H (75-99) mg/dL Procalcitonin (0.02-0.09) ng/mL 11/01/18 11/01/18 Range/Units 17:16 18:04 WBC (3.8-10.6) k/uL RBC (3.80-5.40) m/uL Hgb (11.4-16.0) gm/dL Hct (34.0-46.0) % ABG HCO3 (21-25) mmol/L ABG Total CO2 (19-24) mmol/L Sodium (137-145) mmol/L Chloride (98-107) mmol/L BUN (7-17) mg/dL Creatinine (0.52-1.04) mg/dL Glucose (74-99) mg/dL POC Glucose (mg/dL) 123 H 166 H (75-99) mg/dL Procalcitonin (0.02-0.09) ng/mL Microbiology - Last 24 Hours (Table) 10/21/18 13:00 Acid Fast Bacilli Smear - Final Bronchial Washings - Left Acid Fast Bacilli Culture - Preliminary Assessment and Plan Plan: Impression 1 acute hypoxic respiratory failure secondary to right lower lobe pneumonia. The patient had prolonged ventilator dependent respiratory failure and the patient is currently post it estimate tube insertion. The chest x-ray from today showing similar findings compared to yesterday. There is some vesiculation of the left hemidiaphragm. There are some atelectatic changes in lung bases bilaterally and small effusion. Oxidation is slightly better. I think we should be able to gradually wean down the PEEP on today's evaluation. The patient is awake and she's not following any commands. There is obviously component of metabolic encephalopathy for now. 2 status post tracheostomy and PEG tube insertion for prolonged ventilator dependent respiratory failure. Surgery was done on 10/28/2018 3 suspect secondary to pneumonia, improving, and the patient is currently off antibiotics and the pro-calcitonin level is at 0.16. 4 hypotension secondary to sepsis, resolved 5 diabetes mellitus type 2 6 COPD 7 asthma 8 history of diverticulosis 9 hypertension 10 atrial fibrillation currently back into normal sinus rhythm. Rate is controlled and the patient is currently on amiodarone. 11 metabolic encephalopathy, probably related to prolonged sedation that the patient received throughout the ICU stay. Currently she is off sedation. Her neurologic exam is nonfocal. Plan We'll continue vent support. I'm going to gradually wean down the PEEP down to 8 and later on down to 6 if she maintains a saturation above 90%. Continue same tidal volume and respiratory rate. Blood gas was noted. Chest x-ray was noted. Continue IV Lasix. The patient is in a negative fluid balance and she is prod ucing excellent of urine output. She is quite edematous both in upper and lower extremities. The patient is going to be monitored neurologically. Keep off sedation. We'll consider a CAT scan of the brain in a.m. if the patient's neurologic status remains unchanged compared to yesterday. Otherwise, continue vent support. Continue tube feeding. We'll continue to follow make further recommendations based on the patient's progress today discussed the case with the family and the family was updated on her condition. Is a critically care evaluation that was done and more than 30 minutes. Time with Patient: Greater than 30
[2018-11-01 20:12] LABS: Glucose,Whole Blood 133 mg/dL (75-99)
[2018-11-01] MEDS: MONTELUKAST 10 MG TAB PO SCH (21:16)
[2018-11-01] MEDS: ATORVASTATIN 40 MG TAB PO SCH (21:16)
[2018-11-01] MEDS: SERTRALINE 50 MG TAB PO SCH (21:16)
[2018-11-01 21:57] LABS: Glucose,Whole Blood 171 mg/dL (75-99)
[2018-11-02 00:04] LABS: Glucose,Whole Blood 132 mg/dL (75-99)
[2018-11-02] MEDS: IPRATROPIUM-ALBUTEROL 3 ML NEB INHALATION SCH ×8 (00:18→23:29)
[2018-11-02] MEDS: ACETAMINOPHEN TAB 325 MG TAB PO PRN (01:22)
[2018-11-02] MEDS: HYDROmorphone 1 MG/ML 1 ML SYRINGE IVP PRN ×6 (01:23→21:05)
[2018-11-02 02:09] LABS: Glucose,Whole Blood 300 mg/dL (75-99)
[2018-11-02 02:09] LABS: Glucose,Whole Blood 286 mg/dL (75-99)
[2018-11-02 02:53] LABS: Basophils % (A) 0 %; Eosinophils # (A) 0.1 k/uL (0-0.7); Eosinophils % (A) 1 %; HCT 31.8 % (34.0-46.0); HGB 9.8 gm/dL (11.4-16.0); Hypochromasia Slight; Lymphocytes # (A) 0.4 k/uL (1.0-4.8); Lymphocytes % (A) 3 %; MCH 28.7 pg (25.0-35.0); MCHC 30.8 g/dL (31.0-37.0); MCV 92.9 fL (80.0-100.0); Monocytes # (A) 0.3 k/uL (0-1.0); Monocytes % (A) 3 %; Neutrophils # (A) 12.1 k/uL (1.3-7.7); Neutrophils % (A) 93 %; Platelet Count 244 k/uL (150-450); RBC 3.42 m/uL (3.80-5.40); RDW 15.2 % (11.5-15.5); WBC 13.1 k/uL (3.8-10.6)
[2018-11-02] MEDS: NOREPINEPHRINE 4 MG in SODIUM CHLORIDE 0.9% 250 ML IV SCH ×2 (03:11→18:27)
[2018-11-02 03:15] LABS: Albumin 2.9 g/dL (3.5-5.0); Magnesium 2.1 mg/dL (1.6-2.3); Potassium 4.7 mmol/L (3.5-5.1); Total Bilirubin 0.7 mg/dL (0.2-1.3); Total Protein 5.4 g/dL (6.3-8.2)
[2018-11-02 04:06] LABS: Glucose,Whole Blood 225 mg/dL (75-99)
[2018-11-02 04:39] LABS: ABG Base Excess 5.3 mmol/L; ABG HCO3 29 mmol/L (21-25); ABG Oxygen Saturation 95.8 % (94-97); ABG PCO2 41 mmHg (35-45); ABG PH 7.46 (7.35-7.45); ABG PO2 83 mmHg (83-108); Allen Test Performed? Yes
[2018-11-02 05:57] LABS: Glucose,Whole Blood 133 mg/dL (75-99)
[2018-11-02] MEDS: BUDESONIDE 1 MG/2 ML NEBU INHALATION SCH ×2 (06:54→20:10)
[2018-11-02] MEDS: FORMOTEROL FUMARATE 20 MCG/2 ML NEBU INHALATION SCH ×2 (06:54→20:10)
[2018-11-02] MEDS: METOPROLOL TARTRATE 25 MG TAB PO SCH ×3 (08:35→21:13)
[2018-11-02] MEDS: PANTOPRAZOLE 40 MG/10 ML VIAL IVP SCH ×2 (08:35→21:14)
[2018-11-02] MEDS: AMIODARONE 200 MG TAB PO SCH ×2 (08:35→21:13)
[2018-11-02] MEDS: CHLORHEXIDINE GLUCONATE 15 ML CUP MUCOUS MEM SCH ×2 (08:35→21:13)
[2018-11-02] MEDS: amLODIPine 5 MG TAB PO SCH ×2 (08:35→21:13)
[2018-11-02] MEDS: methylPREDNISolone SOD SUCCI 40 MG/ML 1 ML VIAL IV SCH ×2 (08:36→21:13)
[2018-11-02] MEDS: MAGNESIUM OXIDE 400 MG TAB PO SCH (08:36)
[2018-11-02] MEDS: MAG HYDROX/AL HYDROX/SIMETH 30 ML, LIDOCAINE VISCOUS 30 ML, NYSTATIN 100,000 UNIT/ML SU... PO SCH ×6 (08:37→14:46)
[2018-11-02 08:41] LABS: Glucose,Whole Blood 197 mg/dL (75-99)
[2018-11-02 08:41] LABS: Glucose,Whole Blood 215 mg/dL (75-99)
[2018-11-02] MEDS: INSULIN REGULAR 100 UNIT in SODIUM CHLORIDE 0.9% 100 ML IV SCH (08:43)
--- NOTE | 2018-11-02 08:44 | PN ---
PROGRESS NOTE Mrs. Cota is a 58-year-old female who was admitted to the hospital on October 13 with respiratory failure and paroxysmal atrial fibrillation. She has respiratory failure with pneumonia requiring mechanical ventilation. She remains intubated. She is opening her eyes, but not following command. She had an episode of atrial fibrillation yesterday, but back in sinus mechanism. Hemodynamically, she is stable. She is tolerating enteral feeding and she has a trach. Her urine output has been stable. There is no evidence of ventricular tachycardia. She continues to be at this time on amiodarone 200 mg twice a day, amlodipine 5 mg twice a day, Lipitor 40 mg daily, metoprolol tartrate 25 mg twice a day. PHYSICAL EXAMINATION: Blood pressure 115/50 with a heart rate in the 60s. LUNGS: With mild decrease in breath sounds, no wheezes. Neurologically. she is opening her eyes but not following command. HEART: Regular rate and rhythm, S1, S2. No S3 with a systolic murmur heard at the base, ejection type. No diastolic murmur, no rub. ABDOMEN: Soft, nontender. EXTREMITIES: With 1+ edema. LAB DATA: Revealed BUN and creatinine 62 and 1.27, potassium 4.7, hemoglobin of 9.8. IMPRESSION: 1. Respiratory failure with pneumonia requiring prolonged ventilation. 2. Status post trach and PEG. 3. Paroxysmal atrial fibrillation. 4. Metabolic encephalopathy. 5. Prior history of diabetes. RECOMMENDATION: From the cardiac standpoint, I will continue the present therapy. I will increase the dose of her beta waldo. We will the patient is not on anticoagulation at this time. I will discuss that issue with Dr. Knowles to see if we can re-initiate it. In the meantime will continue the rest of the medical regimen. The patient probably is going to be transferred to [facility] care for prolonged intubation and weaning. MMODL / IJN: [id number] /
[2018-11-02 09:55] LABS: Glucose,Whole Blood 188 mg/dL (75-99)
[2018-11-02 11:14] LABS: Glucose,Whole Blood 152 mg/dL (75-99)
--- NOTE | 2018-11-02 12:05 | P.PN ---
Progress Note - Text Progress Note Date: 11/02/18 Patient doing well on the ventilator. No issues related to the tracheostomy and PEG tube. The patient's bolster was loosened. We'll sign off. Please call if needed.
--- NOTE | 2018-11-02 12:05 | CT ---
EXAMINATION TYPE: CT brain wo con DATE OF EXAM: 11/02/2018 COMPARISON: 10/20/2018 HISTORY: Encephalopathy CT DLP: 1016.4 mGycm Automated exposure control for dose reduction was used. FINDINGS: Artifact limits assessment of posterior fossa. No obvious acute intracranial hemorrhage or midline sh ift. Calvarium intact. Intracranial atherosclerotic changes noted. IMPRESSION: LIMITED ASSESSMENT OF POSTERIOR FOSSA DUE TO ARTIFACT. NO OBVIOUS ACUTE INTRACRANIAL HEMORRHAGE OR MA SS EFFECT. IF THERE IS CONCERN FOR ACUTE INTRACRANIAL ABNORMALITY CONSIDER FOLLOW-UP MRI CLINICAL LY WARRANTED.
[2018-11-02] MEDS: CLEVIDIPINE BUTYRATE 25 MG in EMPTY BAG 1 BAG IV SCH (12:44)
[2018-11-02 12:54] LABS: Glucose,Whole Blood 142 mg/dL (75-99)
--- NOTE | 2018-11-02 13:08 | P.PN ---
Subjective 58-year-old female admitted 2 weeks ago for sepsis and pneumonia. She was intubated. She was eventually trached and had a PEG tube for failure to wean. 10/31/2018 Today her sedation was turned down. She is not responding to commands as much. She is not moving her upper extremities except for shortening of the shoulders involuntarily. She has fixed gaze and is not following any directions Review of system was not possible due to the patient's condition. 11/01/2018 Patient still not responding. Sedation and on since yesterday. Review of systems was not possible because of her condition 11/02/2018 Patient has her eyes open not responding. She might move her lower extremities but not moving her upper extremity that much. Review of systems is not able to be possible because of her mental status Objective - Vital Signs Vital signs: Vital Signs Temp 99.5 F 11/02/18 12:00 Pulse 64 11/02/18 12:08 Resp 24 11/02/18 12:00 BP 124/63 11/02/18 12:00 Pulse Ox 95 11/02/18 12:00 Intake & Output 11/01/18 11/02/18 11/02/18 18:59 06:59 18:59 Intake Total 7076.018 5916.591 273.562 Output Total 4016 3390 425 Balance -2647.785 -1909.409 -151.438 Weight 94.2 kg 88.7 kg Intake: IV 240 220 120 0.9NS 240 220 120 Intake, IV Titration 40.215 44.591 41.562 Amount Insulin Regular 100 unit 40.215 44.591 41.562 In Sodium Chloride 0.9% 100 ml @ Per Protocol IV .Q0M [facility] Rx#:[id number] Tube Feeding 788 616 112 Other 300 600 Output: Urine 4016 3390 425 Other: Voiding Method Indwelling Catheter Indwelling Catheter ABP, PAP, CO, CI - Last Documented Arterial Blood Pressure 109/60 - Exam On exam, patient is awake but not responding to any commands or any stimuli HEENT: Conjunctivae normal. eyes normal. NECK: No JVD. No thyroid enlargement. No LNs CARDIOVASCULAR: Sonesta positive RESPIRATION: Breath sounds diminished in the bases. No rhonchi or crackles. No bronchial breathing. ABDOMEN: Soft, nontender . No guarding. no masses palpable. No ascites, No hepatosplenomegaly.Bowel sounds heard. LEGS: No edema. no swelling NERVOUS SYSTEM: physical is not responding to any stimuli. She is not is fine to painful stimuli to the upper extremity is. She is having withdrawal to plantar reflex on the left but no response to the right lower extremity. Skin: no ulcer no rash - Labs CBC & Chem 7: 11/02/18 02:46 11/02/18 02:46 Labs: Abnormal Lab Results - Last 24 Hours (Table) 11/01/18 11/01/18 11/01/18 Range/Units 13:22 13:57 14:56 WBC (3.8-10.6) k/uL RBC (3.80-5.40) m/uL Hgb (11.4-16.0) gm/dL Hct (34.0-46.0) % MCHC (31.0-37.0) g/dL Neutrophils # (1.3-7.7) k/uL Lymphocytes # (1.0-4.8) k/uL ABG pH (7.35-7.45) ABG HCO3 (21-25) mmol/L BUN (7-17) mg/dL Creatinine (0.52-1.04) mg/dL Glucose (74-99) mg/dL POC Glucose (mg/dL) 193 H 187 H 149 H (75-99) mg/dL Calcium (8.4-10.2) mg/dL Total Protein (6.3-8.2) g/dL Albumin (3.5-5.0) g/dL 11/01/18 11/01/18 11/01/18 Range/Units 16:15 17:16 18:04 WBC (3.8-10.6) k/uL RBC (3.80-5.40) m/uL Hgb (11.4-16.0) gm/dL Hct (34.0-46.0) % MCHC (31.0-37.0) g/dL Neutrophils # (1.3-7.7) k/uL Lymphocytes # (1.0-4.8) k/uL ABG pH (7.35-7.45) ABG HCO3 (21-25) mmol/L BUN (7-17) mg/dL Creatinine (0.52-1.04) mg/dL Glucose (74-99) mg/dL POC Glucose (mg/dL) 159 H 123 H 166 H (75-99) mg/dL Calcium (8.4-10.2) mg/dL Total Protein (6.3-8.2) g/dL Albumin (3.5-5.0) g/dL 11/01/18 11/01/18 11/01/18 Range/Units 19:57 21:54 23:50 WBC (3.8-10.6) k/uL RBC (3.80-5.40) m/uL Hgb (11.4-16.0) gm/dL Hct (34.0-46.0) % MCHC (31.0-37.0) g/dL Neutrophils # (1.3-7.7) k/uL Lymphocytes # (1.0-4.8) k/uL ABG pH (7.35-7.45) ABG HCO3 (21-25) mmol/L BUN (7-17) mg/dL Creatinine (0.52-1.04) mg/dL Glucose (74-99) mg/dL POC Glucose (mg/dL) 133 H 171 H 132 H (75-99) mg/dL Calcium (8.4-10.2) mg/dL Total Protein (6.3-8.2) g/dL Albumin (3.5-5.0) g/dL 11/02/18 11/02/18 11/02/18 Range/Units 02:04 02:07 02:46 WBC 13.1 H (3.8-10.6) k/uL RBC 3.42 L (3.80-5.40) m/uL Hgb 9.8 L (11.4-16.0) gm/dL Hct 31.8 L (34.0-46.0) % MCHC 30.8 L (31.0-37.0) g/dL Neutrophils # 12.1 H (1.3-7.7) k/uL Lymphocytes # 0.4 L (1.0-4.8) k/uL ABG pH (7.35-7.45) ABG HCO3 (21-25) mmol/L BUN (7-17) mg/dL Creatinine (0.52-1.04) mg/dL Glucose (74-99) mg/dL POC Glucose (mg/dL) 286 H 300 H (75-99) mg/dL Calcium (8.4-10.2) mg/dL Total Protein (6.3-8.2) g/dL Albumin (3.5-5.0) g/dL 11/02/18 11/02/18 11/02/18 Range/Units 02:46 04:02 04:23 WBC (3.8-10.6) k/uL RBC (3.80-5.40) m/uL Hgb (11.4-16.0) gm/dL Hct (34.0-46.0) % MCHC (31.0-37.0) g/dL Neutrophils # (1.3-7.7) k/uL Lymphocytes # (1.0-4.8) k/uL ABG pH 7.46 H (7.35-7.45) ABG HCO3 29 H (21-25) mmol/L BUN 67 H (7-17) mg/dL Creatinine 1.27 H (0.52-1.04) mg/dL Glucose 278 H (74-99) mg/dL POC Glucose (mg/dL) 225 H (75-99) mg/dL Calcium 8.0 L (8.4-10.2) mg/dL Total Protein 5.4 L (6.3-8.2) g/dL Albumin 2.9 L (3.5-5.0) g/dL 11/02/18 11/02/18 11/02/18 Range/Units 05:55 08:08 08:38 WBC (3.8-10.6) k/uL RBC (3.80-5.40) m/uL Hgb (11.4-16.0) gm/dL Hct (34.0-46.0) % MCHC (31.0-37.0) g/dL Neutrophils # (1.3-7.7) k/uL Lymphocytes # (1.0-4.8) k/uL ABG pH (7.35-7.45) ABG HCO3 (21-25) mmol/L BUN (7-17) mg/dL Creatinine (0.52-1.04) mg/dL Glucose (74-99) mg/dL POC Glucose (mg/dL) 133 H 197 H 215 H (75-99) mg/dL Calcium (8.4-10.2) mg/dL Total Protein (6.3-8.2) g/dL Albumin (3.5-5.0) g/dL 11/02/18 11/02/18 11/02/18 Range/Units 09:54 11:11 11:51 WBC (3.8-10.6) k/uL RBC (3.80-5.40) m/uL Hgb (11.4-16.0) gm/dL Hct (34.0-46.0) % MCHC (31.0-37.0) g/dL Neutrophils # (1.3-7.7) k/uL Lymphocytes # (1.0-4.8) k/uL ABG pH (7.35-7.45) ABG HCO3 (21-25) mmol/L BUN (7-17) mg/dL Creatinine (0.52-1.04) mg/dL Glucose (74-99) mg/dL POC Glucose (mg/dL) 188 H 152 H 142 H (75-99) mg/dL Calcium (8.4-10.2) mg/dL Total Protein (6.3-8.2) g/dL Albumin (3.5-5.0) g/dL Assessment and Plan Assessment: acute hypoxemic hypercapnic respiratory failure requiring intubation initially and then requiring tracheostomy and PEG tube placement for failure to wean - Sepsis and pneumonia - Hypertension improved - Diverticulitis - Small right-sided pleural effusion Plan - We'll continue to monitor the patient in neurological status - If the patient's status does not improve vision might need neurology consult and may require computed tomography scan of the head - We'll continue to recommendations and management - Continue rest of medical care - We'll follow for the patient 11/01/2018 Patient still not responding Might need CT head without contrast and neurology recommendations Continue rest of the medical care We'll need rehab placement eventually 11/02/2018 - Discussed the case with ICU. We will order for computed tomography scan of the head and consult neurology to assess her mental status. Patient might be encephalopathy because of she was on sedation for a long time but any to make sure there is no acute pathology going on. - Continue rest of the medical care - We will follow the patient - We will need LTAC but she was denied by the insurance. 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
[2018-11-02 14:09] LABS: Glucose,Whole Blood 167 mg/dL (75-99)
[2018-11-02] MEDS: APIXABAN 5 MG TAB PO SCH ×2 (14:46→21:27)
--- NOTE | 2018-11-02 15:04 | P.PN ---
Subjective Progress Note Date: 11/02/18 On 11/01/2018, the patient is being seen for a follow-up. The patient is still off sedation. Unfortunately she has not fully recovered in terms of her mentation. She is gradually opening up her eyes and she grimaces to painful stimulation. Nevertheless, she has not following any simple commands this point in time. She shakes and moves her legs. Her neurologic exam is nonfocal. Pupils are equal and reactive to light. No facial asymmetry. No focal neurological deficit at this point in time. The patient is afebrile. The patient's hemodynamically stable. The patient is a tracheostomy tube in place. The patient remains on a assist-control mode of ventilation with a tidal volume 500 with a rate of 22 of and an FiO2 of 40% with a PEEP of 10. The morning blood gases showed a pH of 7.43 with a pCO2 of 42 and pO2 of 86. This was on FiO2 of 40%. Meanwhile, the patient is still on enteral feeding for nutritional support. The patient is on vital high protein at the rate of 56 mL an hour. The patient is producing adequate amount of urine output. The patient's that fluid balance over the past 24 hours has been in the order of negative balance - 362 mL. The patient is on a maintenance fluid of 20 mL of hour of 0.9 normal saline. She is afebrile. She has some edema in all 4 extremities pressure in the lower extremities. Her urine output is adequate and order of 1-50 mL an hour and the patient is currently being diuresis with Lasix 40 mg IV every 12 hours. She is on IV Protonix. She is on DuoNeb nebulized treatments around the clock. She is on IV Solu-Medrol. She is on oral amiodarone and her rhythm is currently sinus. Her blood pressure is under good control as the patient is taking Norvasc 5 mg by mouth twice a day and she is currently off Cleviprex. She is also on metoprolol 25 mg by mouth twice a day. On 11/02/2018, I'm seeing this patient for a follow-up. The patient is more awake compared to yesterday. I will say that she is still encephalopathic. N evertheless she is able to follow some simple orders. She was able to blink her eyes upon demand and she was able to stick out her tongue upon demand. She is moving her lower extremities more than the upper extremities. Despite her some limited improvement, I'm going to undergo a neurologic workup. I'm going to consult neurology regarding this ongoing encephalopathy. I'm also going to order a CAT scan of the brain. She is afebrile. She is on a mechanical ventilator and today she was switched VC plus mode. She is currently on FiO2 of 40% with a PEEP of 6. The blood gases showed a pH of 7.46 with a pCO2 of 41 pO2 of 83. White cell count at 13.1. Hemoglobin was at 9.8. She is afebrile. Chest x-ray showing chronic and limited infiltration of the lung bases bilaterally. Sodium level is at 142. The patient is receiving enteral feeding for nutritional support via a PEG tube. The tracheostomy site is dry clean and intact. He was dynamically stable. Blood pressure is stable.. The patient is on oral amiodarone and overnight the patient had a run of atrial fibrillation. She is having paroxysmal atrial fibrillation and the patient will be started back on anticoagulation with Eliquis 5 mg by mouth twice a day. No other significant events otherwise for now. The patient is currently off propofol. The patient remains on IV Solu-Medrol. She is on broncho-dilators on the current and she has completed antibiotic course. Objective - Vital Signs Vital signs: Vital Signs Temp 99.5 F 11/02/18 12:00 Pulse 64 11/02/18 12:08 Resp 24 11/02/18 12:00 BP 124/63 11/02/18 12:00 Pulse Ox 95 11/02/18 12:00 Intake & Output 11/01/18 11/02/18 11/02/18 18:59 06:59 18:59 Intake Total 6896.776 3779.591 286.019 Output Total 4016 3390 425 Balance -2647.785 -1909.409 -138.981 Weight 94.2 kg 88.7 kg Intake: IV 240 220 120 0.9NS 240 220 120 Intake, IV Titration 40.215 44.591 54.019 Amount Insulin Regular 100 unit 40.215 44.591 54.019 In Sodium Chloride 0.9% 100 ml @ Per Protocol IV .Q0M [facility] Rx#:[id number] Tube Feeding 788 616 112 Other 300 600 Output: Urine 4016 3390 425 Other: Voiding Method Indwelling Catheter Indwelling Catheter ABP, PAP, CO, CI - Last Documented Arterial Blood Pressure 109/60 - Exam Gen. appearance, comfortable likely distress. The patient is off sedation for now and is following some simple commands. She has a tracheostomy tube in place. Head exam was generally normal. There was no scleral icterus or corneal arcus. Mucous membranes were moist. Neck is supple. The patient is a tracheostomy tube in place. No adenopathy. No thyromegaly. No other abnormalities noted. No leaks on the tracheostomy tube. Lung sounds are diminished specially in the right lung base. There is also some crackles and scattered rhonchi heard bilaterally. Cardiac exam revealed the PMI to be normally situated and sized. The rhythm was regular and no extrasystoles were noted during several minutes of auscultation. The first and second heart sounds were normal and physiologic splitting of the second heart sound was noted. There were no murmurs, rubs, clicks, or gallops. Abdominal exam revealed normal bowel sounds. The abdomen was soft, non-tender, and without masses, organomegaly, or appreciable enlargement of the abdominal aorta. Patient has a PEG tube in place. Examination of the extremities revealed easily palpable radial, femoral and pedal pulses. There was no cyanosis, clubbing or edema. Examination of the skin revealed no evidence of significant rashes, suspicious appearing nevi or other concerning lesions. Neurologically the patient is recovering from her sedation. She is opening her eyes. Neurologic exam is nonfocal. She withdraws to painful stimulation all 4 extremities. Pupils are equal and reactive to light. She was able to follow some simple commands today. Nevertheless, she cannot hold a longer interactional conversation. I think she is still encephalopathic at this point in time. - Labs CBC & Chem 7: 11/02/18 02:46 11/02/18 02:46 Labs: Abnormal Lab Results - Last 24 Hours (Table) 11/01/18 11/01/18 11/01/18 Range/Units 14:56 16:15 17:16 WBC (3.8-10.6) k/uL RBC (3.80-5.40) m/uL Hgb (11.4-16.0) gm/dL Hct (34.0-46.0) % MCHC (31.0-37.0) g/dL Neutrophils # (1.3-7.7) k/uL Lymphocytes # (1.0-4.8) k/uL ABG pH (7.35-7.45) ABG HCO3 (21-25) mmol/L BUN (7-17) mg/dL Creatinine (0.52-1.04) mg/dL Glucose (74-99) mg/dL POC Glucose (mg/dL) 149 H 159 H 123 H (75-99) mg/dL Calcium (8.4-10.2) mg/dL Total Protein (6.3-8.2) g/dL Albumin (3.5-5.0) g/dL 11/01/18 11/01/18 11/01/18 Range/Units 18:04 19:57 21:54 WBC (3.8-10.6) k/uL RBC (3.80-5.40) m/uL Hgb (11.4-16.0) gm/dL Hct (34.0-46.0) % MCHC (31.0-37.0) g/dL Neutrophils # (1.3-7.7) k/uL Lymphocytes # (1.0-4.8) k/uL ABG pH (7.35-7.45) ABG HCO3 (21-25) mmol/L BUN (7-17) mg/dL Creatinine (0.52-1.04) mg/dL Glucose (74-99) mg/dL POC Glucose (mg/dL) 166 H 133 H 171 H (75-99) mg/dL Calcium (8.4-10.2) mg/dL Total Protein (6.3-8.2) g/dL Albumin (3.5-5.0) g/dL 11/01/18 11/02/18 11/02/18 Range/Units 23:50 02:04 02:07 WBC (3.8-10.6) k/uL RBC (3.80-5.40) m/uL Hgb (11.4-16.0) gm/dL Hct (34.0-46.0) % MCHC (31.0-37.0) g/dL Neutrophils # (1.3-7.7) k/uL Lymphocytes # (1.0-4.8) k/uL ABG pH (7.35-7.45) ABG HCO3 (21-25) mmol/L BUN (7-17) mg/dL Creatinine (0.52-1.04) mg/dL Glucose (74-99) mg/dL POC Glucose (mg/dL) 132 H 286 H 300 H (75-99) mg/dL Calcium (8.4-10.2) mg/dL Total Protein (6.3-8.2) g/dL Albumin (3.5-5.0) g/dL 11/02/18 11/02/18 11/02/18 Range/Units 02:46 02:46 04:02 WBC 13.1 H (3.8-10.6) k/uL RBC 3.42 L (3.80-5.40) m/uL Hgb 9.8 L (11.4-16.0) gm/dL Hct 31.8 L (34.0-46.0) % MCHC 30.8 L (31.0-37.0) g/dL Neutrophils # 12.1 H (1.3-7.7) k/uL Lymphocytes # 0.4 L (1.0-4.8) k/uL ABG pH (7.35-7.45) ABG HCO3 (21-25) mmol/L BUN 67 H (7-17) mg/dL Creatinine 1.27 H (0.52-1.04) mg/dL Glucose 278 H (74-99) mg/dL POC Glucose (mg/dL) 225 H (75-99) mg/dL Calcium 8.0 L (8.4-10.2) mg/dL Total Protein 5.4 L (6.3-8.2) g/dL Albumin 2.9 L (3.5-5.0) g/dL 11/02/18 11/02/18 11/02/18 Range/Units 04:23 05:55 08:08 WBC (3.8-10.6) k/uL RBC (3.80-5.40) m/uL Hgb (11.4-16.0) gm/dL Hct (34.0-46.0) % MCHC (31.0-37.0) g/dL Neutrophils # (1.3-7.7) k/uL Lymphocytes # (1.0-4.8) k/uL ABG pH 7.46 H (7.35-7.45) ABG HCO3 29 H (21-25) mmol/L BUN (7-17) mg/dL Creatinine (0.52-1.04) mg/dL Glucose (74-99) mg/dL POC Glucose (mg/dL) 133 H 197 H (75-99) mg/dL Calcium (8.4-10.2) mg/dL Total Protein (6.3-8.2) g/dL Albumin (3.5-5.0) g/dL 11/02/18 11/02/18 11/02/18 Range/Units 08:38 09:54 11:11 WBC (3.8-10.6) k/uL RBC (3.80-5.40) m/uL Hgb (11.4-16.0) gm/dL Hct (34.0-46.0) % MCHC (31.0-37.0) g/dL Neutrophils # (1.3-7.7) k/uL Lymphocytes # (1.0-4.8) k/uL ABG pH (7.35-7.45) ABG HCO3 (21-25) mmol/L BUN (7-17) mg/dL Creatinine (0.52-1.04) mg/dL Glucose (74-99) mg/dL POC Glucose (mg/dL) 215 H 188 H 152 H (75-99) mg/dL Calcium (8.4-10.2) mg/dL Total Protein (6.3-8.2) g/dL Albumin (3.5-5.0) g/dL 11/02/18 11/02/18 Range/Units 11:51 13:54 WBC (3.8-10.6) k/uL RBC (3.80-5.40) m/uL Hgb (11.4-16.0) gm/dL Hct (34.0-46.0) % MCHC (31.0-37.0) g/dL Neutrophils # (1.3-7.7) k/uL Lymphocytes # (1.0-4.8) k/uL ABG pH (7.35-7.45) ABG HCO3 (21-25) mmol/L BUN (7-17) mg/dL Creatinine (0.52-1.04) mg/dL Glucose (74-99) mg/dL POC Glucose (mg/dL) 142 H 167 H (75-99) mg/dL Calcium (8.4-10.2) mg/dL Total Protein (6.3-8.2) g/dL Albumin (3.5-5.0) g/dL Assessment and Plan Plan: Impression 1 acute hypoxic respiratory failure secondary to right lower lobe pneumonia. The patient had prolonged ventilator dependent respiratory failure and the patient is currently post tracheostomy tube insertion. The patient is post prolonged intubation mechanical ventilation and ultimately she required tracheostomy tube insertion as part of her weaning process. She is currently down to a PEEP of 5 with an FiO2 of 40%. Blood gases was noted and the patient is adequate oxygenation. No significant signs of bronchospasm or wheezing. She is recovering from her pneumonia. 2 status post tracheostomy and PEG tube insertion for prolonged ventilator dependent respiratory failure. Surgery was done on 10/28/2018 3 suspect secondary to pneumonia, improving, and the patient is currently off antibiotics and the pro-calcitonin level is at 0.16. 4 hypotension secondary to sepsis, resolved 5 diabetes mellitus type 2 6 COPD 7 asthma 8 history of diverticulosis 9 hypertension 10 atrial fibrillation currently back into normal sinus rhythm. Rate is controlled and the patient is currently on amiodarone. 11 metabolic encephalopathy, probably related to prolonged sedation that the patient received throughout the ICU stay. Currently she is off sedation. Her neurologic exam is nonfocal. Plan We'll continue vent support. The necessity ventilator changes were done. Please note the vent changes. Follow-up blood gases. Keep the patient off sedation. Obtain a neurology consultation. Obtain a CAT scan of the brain without contrast. Neurochecks. This continued IV Solu Medrol and put the patient on prednisone burst taper. Rest of the medication will be kept unchanged. We'll continue to follow make further recommendation based on her progress. Continue the supportive care. Continue enteral feeding for nutritional support. Start the patient Eliquis regarding her paroxysmal atrial fibrillation. Her current rhythm is sinus for now. Monitor hemoglobin. Monitor electrolyte. We'll follow. The has been updated on the condition. This induration with on a more than 30 minutes and this is a critically care evaluation on the patient was on mechanical ventilation for prolonged ventilator dependent respiratory failure. Time with Patient: Greater than 30
--- NOTE | 2018-11-02 15:24 | P.CNNES ---
History of Present Illness Consult date: 11/02/18 Requesting physician: Gato Aranda Reason for Consult: AMS Chief complaint: AMS History of Present Illness: This is a 58 RH female with a prolonged ICU stay for the past 2 weeks for sepsis pneumonia, now trached and PEGed. Sedation has been weaned, and it is noted that patient is not waking up appropriately, hence this consult. No witnessed seizure activity. [place] at the bedtime states that she at times follows commands and that she does blink to threat. She remains non-verbal and does not appear to communicate via other non-verbal means. Patient does not provide any meaningful history. My historical information was obtained by discussing the case with the primary team and as well as reviewing available medical records in EMR. Review of Systems Unable to obtain due to AMS. Past Medical History Past Medical History: Diabetes Mellitus History of Any Multi-Drug Resistant Organisms: None Reported Past Surgical History: Unable to Obtain Additional Past Surgical History / Comment(s): Bilateral thumbs Past Anesthesia/Blood Transfusion Reactions: Postoperative Nausea & Vomiting (PONV) Past Psychological History: No Psychological Hx Reported Smoking Status: Former smoker Past Alcohol Use History: None Reported Past Drug Use History: None Reported - Past Family History Mother Family Medical History: Renal Disease Father History Unknown: Yes Medications and Allergies Home Medications Medication Instructions Recorded Confirmed Type Albuterol Nebulized [Ventolin 2.5 mg INHALATION RT-QID 10/14/18 10/14/18 History Nebulized] Atorvastatin [Lipitor] 40 mg PO HS 10/14/18 10/14/18 History Budesonide/Formoterol Fumarate 1 puff INHALATION RT-BID 10/14/18 10/14/18 Hi story [Symbicort 80-4.5 Mcg Inhaler] Insulin Aspart [NovoLOG] 10 units SQ AC-TID 10/14/18 10/14/18 History Insulin Detemir (Levemir) [Levemir] 40 unit SQ HS 10/14/18 10/14/18 History Lisinopril 20 mg PO DAILY 10/14/18 10/14/18 History Montelukast [Singulair] 10 mg PO HS 10/14/18 10/14/18 History Omeprazole 20 mg PO DAILY 10/14/18 10/14/18 History Sertraline [Zoloft] 50 mg PO HS 10/14/18 10/14/18 History metFORMIN HCL 500 mg PO BID 10/14/18 10/14/18 History predniSONE 5 mg PO DAILY 10/14/18 10/14/18 History sitaGLIPtin [Januvia] 50 mg PO DAILY 10/14/18 10/14/18 History Apixaban [Eliquis] 5 mg PO BID #60 tab 10/19/18 Rx Allergies Allergy/AdvReac Type Severity Reaction Status Date / Time No Known Allergies Allergy Verified 10/14/18 07:49 Physical Examination - Vital Signs Vital Signs: Vital Signs Temp Pulse Resp BP Pulse Ox 11/02/18 12:08 64 11/02/18 12:00 99.5 F 64 24 124/63 95 11/02/18 11:52 62 11/02/18 11:00 74 24 142/74 95 11/02/18 10:00 70 15 110/61 96 11/02/18 09:00 74 24 148/68 94 L 11/02/18 08:00 99.2 F 75 24 98/44 95 11/02/18 07:19 68 11/02/18 07:06 62 11/02/18 07:00 61 24 95/46 97 11/02/18 06:54 63 11/02/18 06:00 67 24 115/50 95 11/02/18 05:00 91 18 132/68 96 11/02/18 04:00 67 24 115/63 96 11/02/18 03:28 65 11/02/18 03:19 65 11/02/18 03:00 64 24 103/50 95 11/02/18 02:00 83 24 123/69 93 L 11/02/18 01:00 101.5 F H 84 31 H 163/84 95 11/02/18 00:00 83 24 149/94 95 11/01/18 23:00 81 24 163/90 95 11/01/18 22:00 79 30 H 142/70 96 11/01/18 21:00 112 H 19 169/87 97 11/01/18 20:49 93 11/01/18 20:00 101.1 F H 91 26 H 172/81 97 11/01/18 19:00 91 24 170/91 96 11/01/18 18:00 89 23 154/74 96 11/01/18 17:00 96 26 H 157/68 96 11/01/18 16:31 80 11/01/18 16:26 77 11/01/18 16:00 99.9 F H 74 24 123/58 95 Intake and Output 11/02/18 11/02/18 11/02/18 06:59 14:59 22:59 Intake Total 1098.491 286.019 Output Total 2430 425 Balance -1331.509 -138.981 Intake: IV 160 120 0.9NS 160 120 Intake, IV Titration 34.491 54.019 Amount Insulin Regular 100 unit 34.491 54.019 In Sodium Chloride 0.9% 100 ml @ Per Protocol IV .Q0M [facility] Rx#:[id number] Tube Feeding 504 112 Other 400 Output: Urine 2430 425 Other: Voiding Method Indwelling Catheter Weight 88.7 kg Gen NAD Trached Not sedated HEENT NCAT Sclera without icterus Trach in place Neck Supple no carotid bruit Cor RRR no m/r/g Lungs Coarse BS bilaterally Abd Soft NTND +BS Ext Warm to touch Neuro MS GCS [id number] Non-verbal does not appear communicate via other non-verbal means further detailed language function cannot be assessed CN PERRL Blinks to threat bilaterally +Doll's +Corneal's +Grimace to nostril stim bilaterally +Gag Motor Normal bulk/tone No tremors, asterixis, myoclonus or other adventitious movements No spontaneous motor movements Sens W/D to nailbed stim x4 No obvious neglect Coord Cannot test due to AMS DTRs 1+/4 sym throughout Toes mute bilaterally No ankle clonus Gait Cannot test due to AMS Results - Laboratory Findings CBC and BMP: 11/02/18 02:46 11/02/18 02:46 Abnormal Lab Findings: Abnormal Labs 10/13/18 10/13/18 10/13/18 18:06 23:45 23:47 WBC 10.7 H RBC Hgb Hct MCHC Plt Count Neutrophils # 8.3 H Lymphocytes # ABG pH ABG pCO2 ABG pO2 ABG HCO3 ABG Total CO2 ABG O2 Saturation Sodium Potassium Chloride Carbon Dioxide BUN Creatinine Glucose POC Glucose (mg/dL) 187 H Hemoglobin A1c Calcium Magnesium AST ALT Total Protein Albumin Procalcitonin Urine Appearance Urine Protein Trace H Urine Ketones 2+ H Urine Blood Moderate H Urine RBC 8 H Amorphous Sediment Urine Bacteria Rare H Urine Mucus Rare H Stool Occult Blood Viral Test 10/13/18 10/14/18 10/14/18 23:47 06:12 06:56 WBC RBC Hgb Hct MCHC Plt Count Neutrophils # Lymphocytes # ABG pH ABG pCO2 ABG pO2 ABG HCO3 ABG Total CO2 ABG O2 Saturation Sodium 130 L 133 L Potassium 2.9 L Chloride 93 L Carbon Dioxide BUN Creatinine Glucose 194 H 199 H POC Glucose (mg/dL) 179 H Hemoglobin A1c Calcium 8.3 L 7.4 L Magnesium 1.2 L AST 43 H ALT Total Protein Albumin Procalcitonin Urine Appearance Urine Protein Urine Ketones Urine Blood Urine RBC Amorphous Sediment Urine Bacteria Urine Mucus Stool Occult Blood Viral Test 10/14/18 10/14/18 10/14/18 11:41 12:32 16:24 WBC RBC Hgb Hct MCHC Plt Count Neutrophils # Lymphocytes # ABG pH ABG pCO2 ABG pO2 ABG HCO3 ABG Total CO2 ABG O2 Saturation Sodium Potassium Chloride Carbon Dioxide BUN Creatinine Glucose POC Glucose (mg/dL) 164 H 164 H 111 H Hemoglobin A1c Calcium Magnesium AST ALT Total Protein Albumin Procalcitonin Urine Appearance Urine Protein Urine Ketones Urine Blood Urine RBC Amorphous Sediment Urine Bacteria Urine Mucus Stool Occult Blood Viral Test 10/14/18 10/15/18 10/15/18 21:01 05:51 06:32 WBC RBC Hgb Hct MCHC Plt Count Neutrophils # Lymphocytes # ABG pH ABG pCO2 ABG pO2 ABG HCO3 ABG Total CO2 ABG O2 Saturation Sodium Potassium Chloride Carbon Dioxide BUN Creatinine Glucose POC Glucose (mg/dL) 149 H 208 H Hemoglobin A1c 8.1 H Calcium Magnesium AST ALT Total Protein Albumin Procalcitonin Urine Appearance Urine Protein Urine Ketones Urine Blood Urine RBC Amorphous Sediment Urine Bacteria Urine Mucus Stool Occult Blood Viral Test 10/15/18 10/15/18 10/15/18 06:32 11:52 16:41 WBC RBC Hgb Hct MCHC Plt Count Neutrophils # Lymphocytes # ABG pH ABG pCO2 ABG pO2 ABG HCO3 ABG Total CO2 ABG O2 Saturation Sodium 133 L Potassium Chloride Carbon Dioxide BUN 6 L Creatinine Glucose 186 H POC Glucose (mg/dL) 178 H 261 H Hemoglobin A1c Calcium 7.3 L Magnesium AST ALT Total Protein Albumin Procalcitonin Urine Appearance Urine Protein Urine Ketones Urine Blood Urine RBC Amorphous Sediment Urine Bacteria Urine Mucus Stool Occult Blood Viral Test 10/15/18 10/16/1819 20:34 05:44 09:11 WBC RBC Hgb Hct MCHC Plt Count Neutrophils # Lymphocytes # ABG pH ABG pCO2 ABG pO2 ABG HCO3 ABG Total CO2 ABG O2 Saturation Sodium 132 L Potassium 3.4 L Chloride Carbon Dioxide BUN Creatinine Glucose 174 H POC Glucose (mg/dL) 192 H 145 H Hemoglobin A1c Calcium 7.3 L Magnesium AST ALT Total Protein Albumin Procalcitonin Urine Appearance Urine Protein Urine Ketones Urine Blood Urine RBC Amorphous Sediment Urine Bacteria Urine Mucus Stool Occult Blood Viral Test 10/16/18 10/16/18 10/16/18 11:35 16:44 17:35 WBC RBC Hgb Hct MCHC Plt Count Neutrophils # Lymphocytes # ABG pH ABG pCO2 ABG pO2 ABG HCO3 ABG Total CO2 ABG O2 Saturation Sodium Potassium Chloride Carbon Dioxide BUN Creatinine Glucose POC Glucose (mg/dL) 156 H 205 H 183 H Hemoglobin A1c Calcium Magnesium AST ALT Total Protein Albumin Procalcitonin Urine Appearance Urine Protein Urine Ketones Urine Blood Urine RBC Amorphous Sediment Urine Bacteria Urine Mucus Stool Occult Blood Viral Test 10/16/18 10/17/18 10/17/18 20:26 06:50 08:05 WBC RBC Hgb Hct MCHC Plt Count Neutrophils # Lymphocytes # ABG pH ABG pCO2 ABG pO2 ABG HCO3 ABG Total CO2 ABG O2 Saturation Sodium 131 L Potassium Chloride Carbon Dioxide BUN Creatinine Glucose 288 H POC Glucose (mg/dL) 241 H 261 H Hemoglobin A1c Calcium 7.5 L Magnesium 2.6 H AST ALT Total Protein Albumin Procalcitonin Urine Appearance Urine Protein Urine Ketones Urine Blood Urine RBC Amorphous Sediment Urine Bacteria Urine Mucus Stool Occult Blood Viral Test 10/17/18 10/17/18 10/17/18 11:57 17:07 20:41 WBC RBC Hgb Hct MCHC Plt Count Neutrophils # Lymphocytes # ABG pH ABG pCO2 ABG pO2 ABG HCO3 ABG Total CO2 ABG O2 Saturation Sodium Potassium Chloride Carbon Dioxide BUN Creatinine Glucose POC Glucose (mg/dL) 306 H 303 H 282 H Hemoglobin A1c Calcium Magnesium AST ALT Total Protein Albumin Procalcitonin Urine Appearance Urine Protein Urine Ketones Urine Blood Urine RBC Amorphous Sediment Urine Bacteria Urine Mucus Stool Occult Blood Viral Test 10/18/18 10/18/18 10/18/18 05:12 05:12 07:01 WBC 13.4 H RBC Hgb Hct MCHC Plt Count Neutrophils # Lymphocytes # ABG pH ABG pCO2 ABG pO2 ABG HCO3 ABG Total CO2 ABG O2 Saturation Sodium 133 L Potassium Chloride Carbon Dioxide BUN 18 H Creatinine Glucose 157 H POC Glucose (mg/dL) 139 H Hemoglobin A1c Calcium 7.3 L Magnesium AST 109 H ALT 61 H Total Protein 5.1 L Albumin 2.9 L Procalcitonin Urine Appearance Urine Protein Urine Ketones Urine Blood Urine RBC Amorphous Sediment Urine Bacteria Urine Mucus Stool Occult Blood Viral Test 10/18/18 10/18/18 10/18/18 11:22 12:07 16:45 WBC RBC Hgb Hct MCHC Plt Count Neutrophils # Lymphocytes # ABG pH ABG pCO2 ABG pO2 ABG HCO3 ABG Total CO2 ABG O2 Saturation Sodium Potassium Chloride Carbon Dioxide BUN Creatinine Glucose POC Glucose (mg/dL) 118 H 115 H 173 H Hemoglobin A1c Calcium Magnesium AST ALT Total Protein Albumin Procalcitonin Urine Appearance Urine Protein Urine Ketones Urine Blood Urine RBC Amorphous Sediment Urine Bacteria Urine Mucus Stool Occult Blood Viral Test 10/18/18 10/19/18 10/19/18 20:53 06:42 07:08 WBC RBC Hgb Hct MCHC 30.9 L Plt Count Neutrophils # Lymphocytes # ABG pH ABG pCO2 ABG pO2 ABG HCO3 ABG Total CO2 ABG O2 Saturation Sodium Potassium Chloride Carbon Dioxide BUN Creatinine Glucose POC Glucose (mg/dL) 186 H 125 H Hemoglobin A1c Calcium Magnesium AST ALT Total Protein Albumin Procalcitonin Urine Appearance Urine Protein Urine Ketones Urine Blood Urine RBC Amorphous Sediment Urine Bacteria Urine Mucus Stool Occult Blood Viral Test 10/19/18 10/19/18 10/19/18 07:08 11:49 17:03 WBC RBC Hgb Hct MCHC Plt Count Neutrophils # Lymphocytes # ABG pH ABG pCO2 ABG pO2 ABG HCO3 ABG Total CO2 ABG O2 Saturation Sodium Potassium Chloride Carbon Dioxide BUN 22 H Creatinine 1.15 H Glucose 119 H POC Glucose (mg/dL) 109 H 220 H Hemoglobin A1c Calcium 7.5 L Magnesium AST 84 H ALT 65 H Total Protein 5.0 L Albumin 2.7 L Procalcitonin Urine Appearance Urine Protein Urine Ketones Urine Blood Urine RBC Amorphous Sediment Urine Bacteria Urine Mucus Stool Occult Blood Viral Test 10/19/18 10/19/18 10/20/18 20:37 23:11 00:25 WBC RBC Hgb Hct MCHC Plt Count Neutrophils # Lymphocytes # ABG pH 7.17 L* ABG pCO2 67 H ABG pO2 268 H ABG HCO3 ABG Total CO2 26 H ABG O2 Saturation 99.4 H Sodium Potassium Chloride Carbon Dioxide BUN Creatinine Glucose POC Glucose (mg/dL) 198 H 217 H Hemoglobin A1c Calcium Magnesium AST ALT Total Protein Albumin Procalcitonin Urine Appearance Urine Protein Urine Ketones Urine Blood Urine RBC Amorphous Sediment Urine Bacteria Urine Mucus Stool Occult Blood Viral Test 10/20/18 10/20/18 10/20/18 01:00 05:58 06:04 WBC 11.9 H RBC Hgb Hct MCHC Plt Count Neutrophils # Lymphocytes # ABG pH ABG pCO2 ABG pO2 ABG HCO3 ABG Total CO2 ABG O2 Saturation Sodium 135 L Potassium Chloride 108 H Carbon Dioxide 20 L BUN 31 H Creatinine 1.51 H Glucose 165 H POC Glucose (mg/dL) Hemoglobin A1c Calcium 7.7 L Magnesium AST 69 H ALT 55 H Total Protein 5.0 L Albumin 2.7 L Procalcitonin Urine Appearance Cloudy H Urine Protein 1+ H Urine Ketones Urine Blood Small H Urine RBC Amorphous Sediment Occasional H Urine Bacteria Urine Mucus Rare H Stool Occult Blood Viral Test 10/20/18 10/20/18 10/20/18 07:26 11:47 17:07 WBC RBC Hgb Hct MCHC Plt Count Neutrophils # Lymphocytes # ABG pH ABG pCO2 ABG pO2 75 L ABG HCO3 26 H ABG Total CO2 27 H ABG O2 Saturation Sodium Potassium Chloride Carbon Dioxide BUN Creatinine Glucose POC Glucose (mg/dL) 117 H 126 H Hemoglobin A1c Calcium Magnesium AST ALT Total Protein Albumin Procalcitonin Urine Appearance Urine Protein Urine Ketones Urine Blood Urine RBC Amorphous Sediment Urine Bacteria Urine Mucus Stool Occult Blood Viral Test 10/20/18 10/21/18 10/21/18 21:59 05:13 05:13 WBC RBC 3.72 L Hgb 10.6 L Hct 32.8 L MCHC Plt Count Neutrophils # Lymphocytes # ABG pH ABG pCO2 ABG pO2 ABG HCO3 ABG Total CO2 ABG O2 Saturation Sodium Potassium Chloride 110 H Carbon Dioxide BUN 30 H Creatinine 1.61 H Glucose 72 L POC Glucose (mg/dL) 116 H Hemoglobin A1c Calcium 7.3 L Magnesium AST 50 H ALT Total Protein 4.5 L Albumin 2.3 L Procalcitonin Urine Appearance Urine Protein Urine Ketones Urine Blood Urine RBC Amorphous Sediment Urine Bacteria Urine Mucus Stool Occult Blood Viral Test 10/21/18 10/21/18 10/21/18 05:36 07:15 13:00 WBC RBC Hgb Hct MCHC Plt Count Neutrophils # Lymphocytes # ABG pH ABG pCO2 ABG pO2 ABG HCO3 26 H ABG Total CO2 27 H ABG O2 Saturation Sodium Potassium Chloride Carbon Dioxide BUN Creatinine Glucose POC Glucose (mg/dL) 71 L Hemoglobin A1c Calcium Magnesium AST ALT Total Protein Albumin Procalcitonin Urine Appearance Urine Protein Urine Ketones Urine Blood Urine RBC Amorphous Sediment Urine Bacteria Urine Mucus Stool Occult Blood Viral Test See Below H 10/21/18 10/21/18 10/21/18 18:39 20:19 20:48 WBC RBC Hgb Hct MCHC Plt Count Neutrophils # Lymphocytes # ABG pH ABG pCO2 ABG pO2 ABG HCO3 ABG Total CO2 ABG O2 Saturation Sodium Potassium Chloride Carbon Dioxide BUN Creatinine Glucose POC Glucose (mg/dL) 137 H 144 H 154 H Hemoglobin A1c Calcium Magnesium AST ALT Total Protein Albumin Procalcitonin Urine Appearance Urine Protein Urine Ketones Urine Blood Urine RBC Amorphous Sediment Urine Bacteria Urine Mucus Stool Occult Blood Viral Test 10/21/18 10/21/18 10/22/18 23:34 23:34 04:55 WBC RBC Hgb Hct MCHC Plt Count Neutrophils # Lymphocytes # ABG pH ABG pCO2 ABG pO2 ABG HCO3 ABG Total CO2 ABG O2 Saturation Sodium Potassium Chloride 112 H Carbon Dioxide BUN 31 H Creatinine 1.60 H Glucose 114 H POC Glucose (mg/dL) 134 H Hemoglobin A1c Calcium 7.6 L Magnesium AST 37 H ALT Total Protein 4.6 L Albumin 2.3 L Procalcitonin Urine Appearance Urine Protein Urine Ketones Urine Blood Urine RBC Amorphous Sediment Urine Bacteria Urine Mucus Stool Occult Blood Positive H Viral Test 10/22/18 10/22/18 10/22/18 04:55 05:29 07:40 WBC RBC 3.71 L Hgb 10.5 L Hct MCHC 30.5 L Plt Count Neutrophils # Lymphocytes # ABG pH ABG pCO2 46 H ABG pO2 72 L ABG HCO3 26 H ABG Total CO2 27 H ABG O2 Saturation 93.5 L Sodium Potassium Chloride Carbon Dioxide BUN Creatinine Glucose POC Glucose (mg/dL) 118 H Hemoglobin A1c Calcium Magnesium AST ALT Total Protein Albumin Procalcitonin Urine Appearance Urine Protein Urine Ketones Urine Blood Urine RBC Amorphous Sediment Urine Bacteria Urine Mucus Stool Occult Blood Viral Test 10/22/18 10/22/18 10/22/18 12:10 17:46 20:20 WBC RBC Hgb Hct MCHC Plt Count Neutrophils # Lymphocytes # ABG pH ABG pCO2 ABG pO2 ABG HCO3 ABG Total CO2 ABG O2 Saturation Sodium Potassium Chloride Carbon Dioxide BUN Creatinine Glucose POC Glucose (mg/dL) 177 H 257 H 254 H Hemoglobin A1c Calcium Magnesium AST ALT Total Protein Albumin Procalcitonin Urine Appearance Urine Protein Urine Ketones Urine Blood Urine RBC Amorphous Sediment Urine Bacteria Urine Mucus Stool Occult Blood Viral Test 10/22/18 10/22/18 10/22/18 21:51 23:23 23:35 WBC RBC Hgb Hct MCHC Plt Count Neutrophils # Lymphocytes # ABG pH ABG pCO2 ABG pO2 ABG HCO3 ABG Total CO2 ABG O2 Saturation Sodium Potassium Chloride Carbon Dioxide BUN Creatinine Glucose POC Glucose (mg/dL) 264 H 193 H 203 H Hemoglobin A1c Calcium Magnesium AST ALT Total Protein Albumin Procalcitonin Urine Appearance Urine Protein Urine Ketones Urine Blood Urine RBC Amorphous Sediment Urine Bacteria Urine Mucus Stool Occult Blood Viral Test 10/23/18 10/23/18 10/23/18 04:48 04:48 05:27 WBC RBC 3.35 L Hgb 9.5 L Hct 30.5 L MCHC Plt Count 558 H Neutrophils # Lymphocytes # ABG pH ABG pCO2 ABG pO2 ABG HCO3 ABG Total CO2 ABG O2 Saturation Sodium Potassium Chloride 112 H Carbon Dioxide BUN 43 H Creatinine 1.52 H Glucose 190 H POC Glucose (mg/dL) 181 H Hemoglobin A1c Calcium 7.8 L Magnesium AST ALT Total Protein 4.8 L Albumin 2.4 L Procalcitonin Urine Appearance Urine Protein Urine Ketones Urine Blood Urine RBC Amorphous Sediment Urine Bacteria Urine Mucus Stool Occult Blood Viral Test 10/23/18 10/23/18 10/23/18 07:13 11:07 17:19 WBC RBC Hgb Hct MCHC Plt Count Neutrophils # Lymphocytes # ABG pH 7.32 L ABG pCO2 48 H ABG pO2 73 L ABG HCO3 ABG Total CO2 26 H ABG O2 Saturation 93.3 L Sodium Potassium Chloride Carbon Dioxide BUN Creatinine Glucose POC Glucose (mg/dL) 175 H 259 H Hemoglobin A1c Calcium Magnesium AST ALT Total Protein Albumin Procalcitonin Urine Appearance Urine Protein Urine Ketones Urine Blood Urine RBC Amorphous Sediment Urine Bacteria Urine Mucus Stool Occult Blood Viral Test 10/23/18 10/24/18 10/24/18 22:56 00:00 01:00 WBC RBC Hgb Hct MCHC Plt Count Neutrophils # Lymphocytes # ABG pH ABG pCO2 ABG pO2 ABG HCO3 ABG Total CO2 ABG O2 Saturation Sodium Potassium Chloride Carbon Dioxide BUN Creatinine Glucose POC Glucose (mg/dL) 314 H 270 H 213 H Hemoglobin A1c Calcium Magnesium AST ALT Total Protein Albumin Procalcitonin Urine Appearance Urine Protein Urine Ketones Urine Blood Urine RBC Amorphous Sediment Urine Bacteria Urine Mucus Stool Occult Blood Viral Test 10/24/18 10/24/18 10/24/18 01:58 03:15 04:25 WBC RBC Hgb Hct MCHC Plt Count Neutrophils # Lymphocytes # ABG pH 7.33 L ABG pCO2 46 H ABG pO2 82 L ABG HCO3 ABG Total CO2 26 H ABG O2 Saturation Sodium Potassium Chloride Carbon Dioxide BUN Creatinine Glucose POC Glucose (mg/dL) 209 H 184 H Hemoglobin A1c Calcium Magnesium AST ALT Total Protein Albumin Procalcitonin Urine Appearance Urine Protein Urine Ketones Urine Blood Urine RBC Amorphous Sediment Urine Bacteria Urine Mucus Stool Occult Blood Viral Test 10/24/18 10/24/18 10/24/18 04:25 04:57 04:57 WBC 11.9 H RBC 3.58 L Hgb 10.3 L Hct 32.8 L MCHC Plt Count 626 H Neutrophils # Lymphocytes # ABG pH ABG pCO2 ABG pO2 ABG HCO3 ABG Total CO2 ABG O2 Saturation Sodium Potassium Chloride 114 H Carbon Dioxide BUN 47 H Creatinine 1.27 H Glucose 172 H POC Glucose (mg/dL) 159 H Hemoglobin A1c Calcium 8.3 L Magnesium AST ALT Total Protein 5.2 L Albumin 2.6 L Procalcitonin Urine Appearance Urine Protein Urine Ketones Urine Blood Urine RBC Amorphous Sediment Urine Bacteria Urine Mucus Stool Occult Blood Viral Test 10/24/18 10/24/18 10/24/18 05:02 06:05 06:49 WBC RBC Hgb Hct MCHC Plt Count Neutrophils # Lymphocytes # ABG pH ABG pCO2 ABG pO2 ABG HCO3 ABG Total CO2 ABG O2 Saturation Sodium Potassium Chloride Carbon Dioxide BUN Creatinine Glucose POC Glucose (mg/dL) 166 H 174 H 173 H Hemoglobin A1c Calcium Magnesium AST ALT Total Protein Albumin Procalcitonin Urine Appearance Urine Protein Urine Ketones Urine Blood Urine RBC Amorphous Sediment Urine Bacteria Urine Mucus Stool Occult Blood Viral Test 06/10/24/18 10/24/18 07:58 09:09 09:57 WBC RBC Hgb Hct MCHC Plt Count Neutrophils # Lymphocytes # ABG pH ABG pCO2 ABG pO2 ABG HCO3 ABG Total CO2 ABG O2 Saturation Sodium Potassium Chloride Carbon Dioxide BUN Creatinine Glucose POC Glucose (mg/dL) 148 H 154 H 157 H Hemoglobin A1c Calcium Magnesium AST ALT Total Protein Albumin Procalcitonin Urine Appearance Urine Protein Urine Ketones Urine Blood Urine RBC Amorphous Sediment Urine Bacteria Urine Mucus Stool Occult Blood Viral Test 10/24/18 10/24/18 10/24/18 10:55 11:57 13:01 WBC RBC Hgb Hct MCHC Plt Count Neutrophils # Lymphocytes # ABG pH ABG pCO2 ABG pO2 ABG HCO3 ABG Total CO2 ABG O2 Saturation Sodium Potassium Chloride Carbon Dioxide BUN Creatinine Glucose POC Glucose (mg/dL) 151 H 152 H 153 H Hemoglobin A1c Calcium Magnesium AST ALT Total Protein Albumin Procalcitonin Urine Appearance Urine Protein Urine Ketones Urine Blood Urine RBC Amorphous Sediment Urine Bacteria Urine Mucus Stool Occult Blood Viral Test 10/24/18 10/24/18 10/24/18 13:58 15:03 15:51 WBC RBC Hgb Hct MCHC Plt Count Neutrophils # Lymphocytes # ABG pH ABG pCO2 ABG pO2 ABG HCO3 ABG Total CO2 ABG O2 Saturation Sodium Potassium Chloride Carbon Dioxide BUN Creatinine Glucose POC Glucose (mg/dL) 150 H 173 H 179 H Hemoglobin A1c Calcium Magnesium AST ALT Total Protein Albumin Procalcitonin Urine Appearance Urine Protein Urine Ketones Urine Blood Urine RBC Amorphous Sediment Urine Bacteria Urine Mucus Stool Occult Blood Viral Test 10/24/18 10/24/18 10/24/18 16:53 18:09 18:56 WBC RBC Hgb Hct MCHC Plt Count Neutrophils # Lymphocytes # ABG pH ABG pCO2 ABG pO2 ABG HCO3 ABG Total CO2 ABG O2 Saturation Sodium Potassium Chloride Carbon Dioxide BUN Creatinine Glucose POC Glucose (mg/dL) 152 H 174 H 150 H Hemoglobin A1c Calcium Magnesium AST ALT Total Protein Albumin Procalcitonin Urine Appearance Urine Protein Urine Ketones Urine Blood Urine RBC Amorphous Sediment Urine Bacteria Urine Mucus Stool Occult Blood Viral Test 10/24/18 10/24/18 10/24/18 20:08 21:32 22:54 WBC RBC Hgb Hct MCHC Plt Count Neutrophils # Lymphocytes # ABG pH ABG pCO2 ABG pO2 ABG HCO3 ABG Total CO2 ABG O2 Saturation Sodium Potassium Chloride Carbon Dioxide BUN Creatinine Glucose POC Glucose (mg/dL) 149 H 177 H 182 H Hemoglobin A1c Calcium Magnesium AST ALT Total Protein Albumin Procalcitonin Urine Appearance Urine Protein Urine Ketones Urine Blood Urine RBC Amorphous Sediment Urine Bacteria Urine Mucus Stool Occult Blood Viral Test 10/25/18 10/25/18 10/25/18 00:06 02:18 03:10 WBC RBC Hgb Hct MCHC Plt Count Neutrophils # Lymphocytes # ABG pH ABG pCO2 ABG pO2 ABG HCO3 ABG Total CO2 ABG O2 Saturation Sodium Potassium Chloride Carbon Dioxide BUN Creatinine Glucose POC Glucose (mg/dL) 174 H 175 H 171 H Hemoglobin A1c Calcium Magnesium AST ALT Total Protein Albumin Procalcitonin Urine Appearance Urine Protein Urine Ketones Urine Blood Urine RBC Amorphous Sediment Urine Bacteria Urine Mucus Stool Occult Blood Viral Test 10/25/18 10/25/18 10/25/18 04:20 05:04 05:04 WBC 12.4 H RBC Hgb 10.6 L Hct MCHC 30.0 L Plt Count 694 H Neutrophils # Lymphocytes # ABG pH ABG pCO2 ABG pO2 ABG HCO3 ABG Total CO2 ABG O2 Saturation Sodium Potassium Chloride 114 H Carbon Dioxide BUN 48 H Creatinine 1.29 H Glucose 191 H POC Glucose (mg/dL) 215 H Hemoglobin A1c Calcium Magnesium AST ALT Total Protein 5.7 L Albumin 3.0 L Procalcitonin Urine Appearance Urine Protein Urine Ketones Urine Blood Urine RBC Amorphous Sediment Urine Bacteria Urine Mucus Stool Occult Blood Viral Test 10/25/18 10/25/18 10/25/18 05:08 05:14 06:15 WBC RBC Hgb Hct MCHC Plt Count Neutrophils # Lymphocytes # ABG pH 7.30 L ABG pCO2 48 H ABG pO2 67 L ABG HCO3 ABG Total CO2 25 H ABG O2 Saturation 91.7 L Sodium Potassium Chloride Carbon Dioxide BUN Creatinine Glucose POC Glucose (mg/dL) 182 H 190 H Hemoglobin A1c Calcium Magnesium AST ALT Total Protein Albumin Procalcitonin Urine Appearance Urine Protein Urine Ketones Urine Blood Urine RBC Amorphous Sediment Urine Bacteria Urine Mucus Stool Occult Blood Viral Test 10/25/18 10/25/18 10/25/18 07:11 08:06 08:57 WBC RBC Hgb Hct MCHC Plt Count Neutrophils # Lymphocytes # ABG pH ABG pCO2 ABG pO2 ABG HCO3 ABG Total CO2 ABG O2 Saturation Sodium Potassium Chloride Carbon Dioxide BUN Creatinine Glucose POC Glucose (mg/dL) 199 H 209 H 218 H Hemoglobin A1c Calcium Magnesium AST ALT Total Protein Albumin Procalcitonin Urine Appearance Urine Protein Urine Ketones Urine Blood Urine RBC Amorphous Sediment Urine Bacteria Urine Mucus Stool Occult Blood Viral Test 10/25/18 10/25/18 10/25/18 10:06 10:52 12:02 WBC RBC Hgb Hct MCHC Plt Count Neutrophils # Lymphocytes # ABG pH ABG pCO2 ABG pO2 ABG HCO3 ABG Total CO2 ABG O2 Saturation Sodium Potassium Chloride Carbon Dioxide BUN Creatinine Glucose POC Glucose (mg/dL) 236 H 245 H 231 H Hemoglobin A1c Calcium Magnesium AST ALT Total Protein Albumin Procalcitonin Urine Appearance Urine Protein Urine Ketones Urine Blood Urine RBC Amorphous Sediment Urine Bacteria Urine Mucus Stool Occult Blood Viral Test 10/25/18 10/25/18 10/25/18 12:51 14:01 14:58 WBC RBC Hgb Hct MCHC Plt Count Neutrophils # Lymphocytes # ABG pH ABG pCO2 ABG pO2 ABG HCO3 ABG Total CO2 ABG O2 Saturation Sodium Potassium Chloride Carbon Dioxide BUN Creatinine Glucose POC Glucose (mg/dL) 204 H 214 H 202 H Hemoglobin A1c Calcium Magnesium AST ALT Total Protein Albumin Procalcitonin Urine Appearance Urine Protein Urine Ketones Urine Blood Urine RBC Amorphous Sediment Urine Bacteria Urine Mucus Stool Occult Blood Viral Test 10/25/18 10/25/18 10/25/18 16:02 17:11 18:05 WBC RBC Hgb Hct MCHC Plt Count Neutrophils # Lymphocytes # ABG pH ABG pCO2 ABG pO2 ABG HCO3 ABG Total CO2 ABG O2 Saturation Sodium Potassium Chloride Carbon Dioxide BUN Creatinine Glucose POC Glucose (mg/dL) 183 H 186 H 213 H Hemoglobin A1c Calcium Magnesium AST ALT Total Protein Albumin Procalcitonin Urine Appearance Urine Protein Urine Ketones Urine Blood Urine RBC Amorphous Sediment Urine Bacteria Urine Mucus Stool Occult Blood Viral Test 10/25/18 10/25/18 10/25/18 19:04 19:48 21:00 WBC RBC Hgb Hct MCHC Plt Count Neutrophils # Lymphocytes # ABG pH ABG pCO2 ABG pO2 ABG HCO3 ABG Total CO2 ABG O2 Saturation Sodium Potassium Chloride Carbon Dioxide BUN Creatinine Glucose POC Glucose (mg/dL) 205 H 194 H 208 H Hemoglobin A1c Calcium Magnesium AST ALT Total Protein Albumin Procalcitonin Urine Appearance Urine Protein Urine Ketones Urine Blood Urine RBC Amorphous Sediment Urine Bacteria Urine Mucus Stool Occult Blood Viral Test 10/25/18 10/25/18 10/25/18 21:54 22:50 23:45 WBC RBC Hgb Hct MCHC Plt Count Neutrophils # Lymphocytes # ABG pH ABG pCO2 ABG pO2 ABG HCO3 ABG Total CO2 ABG O2 Saturation Sodium Potassium Chloride Carbon Dioxide BUN Creatinine Glucose POC Glucose (mg/dL) 221 H 205 H 212 H Hemoglobin A1c Calcium Magnesium AST ALT Total Protein Albumin Procalcitonin Urine Appearance Urine Protein Urine Ketones Urine Blood Urine RBC Amorphous Sediment Urine Bacteria Urine Mucus Stool Occult Blood Viral Test 10/26/18 10/26/18 10/26/18 00:56 02:08 03:03 WBC RBC Hgb Hct MCHC Plt Count Neutrophils # Lymphocytes # ABG pH ABG pCO2 ABG pO2 ABG HCO3 ABG Total CO2 ABG O2 Saturation Sodium Potassium Chloride Carbon Dioxide BUN Creatinine Glucose POC Glucose (mg/dL) 203 H 187 H 199 H Hemoglobin A1c Calcium Magnesium AST ALT Total Protein Albumin Procalcitonin Urine Appearance Urine Protein Urine Ketones Urine Blood Urine RBC Amorphous Sediment Urine Bacteria Urine Mucus Stool Occult Blood Viral Test 10/26/18 10/26/18 10/26/18 04:06 05:04 05:28 WBC RBC Hgb Hct MCHC Plt Count Neutrophils # Lymphocytes # ABG pH ABG pCO2 ABG pO2 ABG HCO3 ABG Total CO2 ABG O2 Saturation Sodium Potassium Chloride 115 H Carbon Dioxide 21 L BUN 61 H Creatinine 1.49 H Glucose 179 H POC Glucose (mg/dL) 182 H 181 H Hemoglobin A1c Calcium Magnesium AST ALT Total Protein 5.3 L Albumin 2.7 L Procalcitonin Urine Appearance Urine Protein Urine Ketones Urine Blood Urine RBC Amorphous Sediment Urine Bacteria Urine Mucus Stool Occult Blood Viral Test 10/26/18 10/26/18 10/26/18 05:28 05:30 05:54 WBC 11.0 H RBC 3.49 L Hgb 10.0 L Hct 32.6 L MCHC 30.8 L Plt Count 662 H Neutrophils # Lymphocytes # ABG pH 7.31 L ABG pCO2 47 H ABG pO2 75 L ABG HCO3 ABG Total CO2 25 H ABG O2 Saturation Sodium Potassium Chloride Carbon Dioxide BUN Creatinine Glucose POC Glucose (mg/dL) 170 H Hemoglobin A1c Calcium Magnesium AST ALT Total Protein Albumin Procalcitonin Urine Appearance Urine Protein Urine Ketones Urine Blood Urine RBC Amorphous Sediment Urine Bacteria Urine Mucus Stool Occult Blood Viral Test 10/26/18 10/26/18 10/26/18 07:50 08:49 10:14 WBC RBC Hgb Hct MCHC Plt Count Neutrophils # Lymphocytes # ABG pH ABG pCO2 ABG pO2 ABG HCO3 ABG Total CO2 ABG O2 Saturation Sodium Potassium Chloride Carbon Dioxide BUN Creatinine Glucose POC Glucose (mg/dL) 177 H 195 H 216 H Hemoglobin A1c Calcium Magnesium AST ALT Total Protein Albumin Procalcitonin Urine Appearance Urine Protein Urine Ketones Urine Blood Urine RBC Amorphous Sediment Urine Bacteria Urine Mucus Stool Occult Blood Viral Test 10/26/18 10/26/18 10/26/18 11:01 12:14 13:18 WBC RBC Hgb Hct MCHC Plt Count Neutrophils # Lymphocytes # ABG pH ABG pCO2 ABG pO2 ABG HCO3 ABG Total CO2 ABG O2 Saturation Sodium Potassium Chloride Carbon Dioxide BUN Creatinine Glucose POC Glucose (mg/dL) 182 H 174 H 165 H Hemoglobin A1c Calcium Magnesium AST ALT Total Protein Albumin Procalcitonin Urine Appearance Urine Protein Urine Ketones Urine Blood Urine RBC Amorphous Sediment Urine Bacteria Urine Mucus Stool Occult Blood Viral Test 10/26/18 10/26/18 10/26/18 14:27 15:17 16:07 WBC RBC Hgb Hct MCHC Plt Count Neutrophils # Lymphocytes # ABG pH ABG pCO2 ABG pO2 ABG HCO3 ABG Total CO2 ABG O2 Saturation Sodium Potassium Chloride Carbon Dioxide BUN Creatinine Glucose POC Glucose (mg/dL) 186 H 165 H 179 H Hemoglobin A1c Calcium Magnesium AST ALT Total Protein Albumin Procalcitonin Urine Appearance Urine Protein Urine Ketones Urine Blood Urine RBC Amorphous Sediment Urine Bacteria Urine Mucus Stool Occult Blood Viral Test 10/26/18 10/26/18 10/26/18 17:27 18:03 18:53 WBC RBC Hgb Hct MCHC Plt Count Neutrophils # Lymphocytes # ABG pH ABG pCO2 ABG pO2 ABG HCO3 ABG Total CO2 ABG O2 Saturation Sodium Potassium Chloride Carbon Dioxide BUN Creatinine Glucose POC Glucose (mg/dL) 177 H 188 H 208 H Hemoglobin A1c Calcium Magnesium AST ALT Total Protein Albumin Procalcitonin Urine Appearance Urine Protein Urine Ketones Urine Blood Urine RBC Amorphous Sediment Urine Bacteria Urine Mucus Stool Occult Blood Viral Test 10/26/18 10/26/18 10/26/18 19:48 20:57 22:03 WBC RBC Hgb Hct MCHC Plt Count Neutrophils # Lymphocytes # ABG pH ABG pCO2 ABG pO2 ABG HCO3 ABG Total CO2 ABG O2 Saturation Sodium Potassium Chloride Carbon Dioxide BUN Creatinine Glucose POC Glucose (mg/dL) 147 H 165 H 170 H Hemoglobin A1c Calcium Magnesium AST ALT Total Protein Albumin Procalcitonin Urine Appearance Urine Protein Urine Ketones Urine Blood Urine RBC Amorphous Sediment Urine Bacteria Urine Mucus Stool Occult Blood Viral Test 10/26/18 10/27/18 10/27/18 23:04 00:03 01:09 WBC RBC Hgb Hct MCHC Plt Count Neutrophils # Lymphocytes # ABG pH ABG pCO2 ABG pO2 ABG HCO3 ABG Total CO2 ABG O2 Saturation Sodium Potassium Chloride Carbon Dioxide BUN Creatinine Glucose POC Glucose (mg/dL) 162 H 180 H 163 H Hemoglobin A1c Calcium Magnesium AST ALT Total Protein Albumin Procalcitonin Urine Appearance Urine Protein Urine Ketones Urine Blood Urine RBC Amorphous Sediment Urine Bacteria Urine Mucus Stool Occult Blood Viral Test 10/27/18 10/27/18 10/27/18 02:58 04:56 04:56 WBC 13.2 H RBC 3.36 L Hgb 9.4 L Hct 31.1 L MCHC 30.1 L Plt Count 667 H Neutrophils # Lymphocytes # ABG pH ABG pCO2 ABG pO2 ABG HCO3 ABG Total CO2 ABG O2 Saturation Sodium Potassium Chloride 114 H Carbon Dioxide BUN 64 H Creatinine 1.36 H Glucose 158 H POC Glucose (mg/dL) 153 H Hemoglobin A1c Calcium Magnesium AST ALT Total Protein 5.0 L Albumin 2.6 L Procalcitonin Urine Appearance Urine Protein Urine Ketones Urine Blood Urine RBC Amorphous Sediment Urine Bacteria Urine Mucus Stool Occult Blood Viral Test 10/27/18 10/27/18 10/27/18 05:03 05:04 06:59 WBC RBC Hgb Hct MCHC Plt Count Neutrophils # Lymphocytes # ABG pH 7.34 L ABG pCO2 47 H ABG pO2 ABG HCO3 ABG Total CO2 27 H ABG O2 Saturation 97.3 H Sodium Potassium Chloride Carbon Dioxide BUN Creatinine Glucose POC Glucose (mg/dL) 154 H 161 H Hemoglobin A1c Calcium Magnesium AST ALT Total Protein Albumin Procalcitonin Urine Appearance Urine Protein Urine Ketones Urine Blood Urine RBC Amorphous Sediment Urine Bacteria Urine Mucus Stool Occult Blood Viral Test 10/27/18 10/27/18 10/27/18 07:59 10:00 11:06 WBC RBC Hgb Hct MCHC Plt Count Neutrophils # Lymphocytes # ABG pH ABG pCO2 ABG pO2 ABG HCO3 ABG Total CO2 ABG O2 Saturation Sodium Potassium Chloride Carbon Dioxide BUN Creatinine Glucose POC Glucose (mg/dL) 169 H 175 H 178 H Hemoglobin A1c Calcium Magnesium AST ALT Total Protein Albumin Procalcitonin Urine Appearance Urine Protein Urine Ketones Urine Blood Urine RBC Amorphous Sediment Urine Bacteria Urine Mucus Stool Occult Blood Viral Test 10/27/18 10/27/18 10/27/18 11:53 13:02 13:14 WBC RBC Hgb Hct MCHC Plt Count Neutrophils # Lymphocytes # ABG pH ABG pCO2 ABG pO2 ABG HCO3 ABG Total CO2 ABG O2 Saturation Sodium Potassium Chloride Carbon Dioxide BUN Creatinine Glucose POC Glucose (mg/dL) 160 H 170 H 159 H Hemoglobin A1c Calcium Magnesium AST ALT Total Protein Albumin Procalcitonin Urine Appearance Urine Protein Urine Ketones Urine Blood Urine RBC Amorphous Sediment Urine Bacteria Urine Mucus Stool Occult Blood Viral Test 10/27/18 10/27/18 10/27/18 13:58 14:59 16:03 WBC RBC Hgb Hct MCHC Plt Count Neutrophils # Lymphocytes # ABG pH ABG pCO2 ABG pO2 ABG HCO3 ABG Total CO2 ABG O2 Saturation Sodium Potassium Chloride Carbon Dioxide BUN Creatinine Glucose POC Glucose (mg/dL) 160 H 140 H 169 H Hemoglobin A1c Calcium Magnesium AST ALT Total Protein Albumin Procalcitonin Urine Appearance Urine Protein Urine Ketones Urine Blood Urine RBC Amorphous Sediment Urine Bacteria Urine Mucus Stool Occult Blood Viral Test 10/27/18 10/27/18 10/27/18 17:12 17:57 18:53 WBC RBC Hgb Hct MCHC Plt Count Neutrophils # Lymphocytes # ABG pH ABG pCO2 ABG pO2 ABG HCO3 ABG Total CO2 ABG O2 Saturation Sodium Potassium Chloride Carbon Dioxide BUN Creatinine Glucose POC Glucose (mg/dL) 135 H 150 H 140 H Hemoglobin A1c Calcium Magnesium AST ALT Total Protein Albumin Procalcitonin Urine Appearance Urine Protein Urine Ketones Urine Blood Urine RBC Amorphous Sediment Urine Bacteria Urine Mucus Stool Occult Blood Viral Test 10/27/18 10/27/18 10/27/18 20:11 21:08 21:58 WBC RBC Hgb Hct MCHC Plt Count Neutrophils # Lymphocytes # ABG pH ABG pCO2 ABG pO2 ABG HCO3 ABG Total CO2 ABG O2 Saturation Sodium Potassium Chloride Carbon Dioxide BUN Creatinine Glucose POC Glucose (mg/dL) 135 H 135 H 147 H Hemoglobin A1c Calcium Magnesium AST ALT Total Protein Albumin Procalcitonin Urine Appearance Urine Protein Urine Ketones Urine Blood Urine RBC Amorphous Sediment Urine Bacteria Urine Mucus Stool Occult Blood Viral Test 10/27/18 10/28/18 10/28/18 23:00 00:26 01:00 WBC RBC Hgb Hct MCHC Plt Count Neutrophils # Lymphocytes # ABG pH ABG pCO2 ABG pO2 ABG HCO3 ABG Total CO2 ABG O2 Saturation Sodium Potassium Chloride Carbon Dioxide BUN Creatinine Glucose POC Glucose (mg/dL) 149 H 165 H 159 H Hemoglobin A1c Calcium Magnesium AST ALT Total Protein Albumin Procalcitonin Urine Appearance Urine Protein Urine Ketones Urine Blood Urine RBC Amorphous Sediment Urine Bacteria Urine Mucus Stool Occult Blood Viral Test 10/28/18 10/28/18 10/28/18 02:00 03:06 04:04 WBC RBC Hgb Hct MCHC Plt Count Neutrophils # Lymphocytes # ABG pH ABG pCO2 ABG pO2 ABG HCO3 ABG Total CO2 ABG O2 Saturation Sodium Potassium Chloride Carbon Dioxide BUN Creatinine Glucose POC Glucose (mg/dL) 159 H 147 H 161 H Hemoglobin A1c Calcium Magnesium AST ALT Total Protein Albumin Procalcitonin Urine Appearance Urine Protein Urine Ketones Urine Blood Urine RBC Amorphous Sediment Urine Bacteria Urine Mucus Stool Occult Blood Viral Test 10/28/18 10/28/18 10/28/18 04:23 05:11 05:26 WBC RBC Hgb Hct MCHC Plt Count Neutrophils # Lymphocytes # ABG pH 7.33 L ABG pCO2 48 H ABG pO2 ABG HCO3 ABG Total CO2 27 H ABG O2 Saturation 97.2 H Sodium 146 H Potassium 5.2 H Chloride 114 H Carbon Dioxide BUN 64 H Creatinine 1.40 H Glucose 161 H POC Glucose (mg/dL) 170 H Hemoglobin A1c Calcium Magnesium AST ALT Total Protein 5.3 L Albumin 2.8 L Procalcitonin Urine Appearance Urine Protein Urine Ketones Urine Blood Urine RBC Amorphous Sediment Urine Bacteria Urine Mucus Stool Occult Blood Viral Test 10/28/18 10/28/18 10/28/18 05:26 06:17 07:01 WBC 12.1 H RBC 3.36 L Hgb 9.5 L Hct 31.1 L MCHC 30.6 L Plt Count 585 H Neutrophils # Lymphocytes # ABG pH ABG pCO2 ABG pO2 ABG HCO3 ABG Total CO2 ABG O2 Saturation Sodium Potassium Chloride Carbon Dioxide BUN Creatinine Glucose POC Glucose (mg/dL) 178 H 150 H Hemoglobin A1c Calcium Magnesium AST ALT Total Protein Albumin Procalcitonin Urine Appearance Urine Protein Urine Ketones Urine Blood Urine RBC Amorphous Sediment Urine Bacteria Urine Mucus Stool Occult Blood Viral Test 10/28/18 10/28/18 10/28/18 09:37 11:31 14:43 WBC RBC Hgb Hct MCHC Plt Count Neutrophils # Lymphocytes # ABG pH ABG pCO2 ABG pO2 ABG HCO3 ABG Total CO2 ABG O2 Saturation Sodium Potassium Chloride Carbon Dioxide BUN Creatinine Glucose POC Glucose (mg/dL) 163 H 153 H 132 H Hemoglobin A1c Calcium Magnesium AST ALT Total Protein Albumin Procalcitonin Urine Appearance Urine Protein Urine Ketones Urine Blood Urine RBC Amorphous Sediment Urine Bacteria Urine Mucus Stool Occult Blood Viral Test 10/28/18 10/28/18 10/28/18 16:07 17:10 18:20 WBC RBC Hgb Hct MCHC Plt Count Neutrophils # Lymphocytes # ABG pH ABG pCO2 ABG pO2 ABG HCO3 ABG Total CO2 ABG O2 Saturation Sodium Potassium Chloride Carbon Dioxide BUN Creatinine Glucose POC Glucose (mg/dL) 176 H 226 H 201 H Hemoglobin A1c Calcium Magnesium AST ALT Total Protein Albumin Procalcitonin Urine Appearance Urine Protein Urine Ketones Urine Blood Urine RBC Amorphous Sediment Urine Bacteria Urine Mucus Stool Occult Blood Viral Test 10/28/18 10/28/18 10/28/18 20:06 21:01 22:13 WBC RBC Hgb Hct MCHC Plt Count Neutrophils # Lymphocytes # ABG pH ABG pCO2 ABG pO2 ABG HCO3 ABG Total CO2 ABG O2 Saturation Sodium Potassium Chloride Carbon Dioxide BUN Creatinine Glucose POC Glucose (mg/dL) 166 H 152 H 163 H Hemoglobin A1c Calcium Magnesium AST ALT Total Protein Albumin Procalcitonin Urine Appearance Urine Protein Urine Ketones Urine Blood Urine RBC Amorphous Sediment Urine Bacteria Urine Mucus Stool Occult Blood Viral Test 10/28/18 10/29/18 10/29/18 23:13 00:01 00:57 WBC RBC Hgb Hct MCHC Plt Count Neutrophils # Lymphocytes # ABG pH ABG pCO2 ABG pO2 ABG HCO3 ABG Total CO2 ABG O2 Saturation Sodium Potassium Chloride Carbon Dioxide BUN Creatinine Glucose POC Glucose (mg/dL) 148 H 140 H 140 H Hemoglobin A1c Calcium Magnesium AST ALT Total Protein Albumin Procalcitonin Urine Appearance Urine Protein Urine Ketones Urine Blood Urine RBC Amorphous Sediment Urine Bacteria Urine Mucus Stool Occult Blood Viral Test 10/29/18 10/29/18 10/29/18 02:01 03:02 04:16 WBC RBC Hgb Hct MCHC Plt Count Neutrophils # Lymphocytes # ABG pH ABG pCO2 ABG pO2 ABG HCO3 ABG Total CO2 ABG O2 Saturation Sodium Potassium Chloride Carbon Dioxide BUN Creatinine Glucose POC Glucose (mg/dL) 138 H 206 H 185 H Hemoglobin A1c Calcium Magnesium AST ALT Total Protein Albumin Procalcitonin Urine Appearance Urine Protein Urine Ketones Urine Blood Urine RBC Amorphous Sediment Urine Bacteria Urine Mucus Stool Occult Blood Viral Test 10/29/18 10/29/18 10/29/18 04:30 04:45 04:45 WBC 13.0 H RBC 3.66 L Hgb 10.2 L Hct 33.6 L MCHC 30.4 L Plt Count 564 H Neutrophils # 12.2 H Lymphocytes # 0.4 L ABG pH ABG pCO2 ABG pO2 ABG HCO3 27 H ABG Total CO2 28 H ABG O2 Saturation Sodium 147 H Potassium Chloride 113 H Carbon Dioxide BUN 65 H Creatinine 1.45 H Glucose 188 H POC Glucose (mg/dL) Hemoglobin A1c Calcium Magnesium AST ALT Total Protein 5.5 L Albumin 3.0 L Procalcitonin Urine Appearance Urine Protein Urine Ketones Urine Blood Urine RBC Amorphous Sediment Urine Bacteria Urine Mucus Stool Occult Blood Viral Test 10/29/18 10/29/18 10/29/18 04:52 06:10 07:05 WBC RBC Hgb Hct MCHC Plt Count Neutrophils # Lymphocytes # ABG pH ABG pCO2 ABG pO2 ABG HCO3 ABG Total CO2 ABG O2 Saturation Sodium Potassium Chloride Carbon Dioxide BUN Creatinine Glucose POC Glucose (mg/dL) 188 H 189 H 153 H Hemoglobin A1c Calcium Magnesium AST ALT Total Protein Albumin Procalcitonin Urine Appearance Urine Protein Urine Ketones Urine Blood Urine RBC Amorphous Sediment Urine Bacteria Urine Mucus Stool Occult Blood Viral Test 10/29/18 10/29/18 10/29/18 08:08 09:05 10:07 WBC RBC Hgb Hct MCHC Plt Count Neutrophils # Lymphocytes # ABG pH ABG pCO2 ABG pO2 ABG HCO3 ABG Total CO2 ABG O2 Saturation Sodium Potassium Chloride Carbon Dioxide BUN Creatinine Glucose POC Glucose (mg/dL) 133 H 157 H 169 H Hemoglobin A1c Calcium Magnesium AST ALT Total Protein Albumin Procalcitonin Urine Appearance Urine Protein Urine Ketones Urine Blood Urine RBC Amorphous Sediment Urine Bacteria Urine Mucus Stool Occult Blood Viral Test 10/29/18 10/29/18 10/29/18 11:19 12:03 12:56 WBC RBC Hgb Hct MCHC Plt Count Neutrophils # Lymphocytes # ABG pH ABG pCO2 ABG pO2 ABG HCO3 ABG Total CO2 ABG O2 Saturation Sodium Potassium Chloride Carbon Dioxide BUN Creatinine Glucose POC Glucose (mg/dL) 199 H 181 H 190 H Hemoglobin A1c Calcium Magnesium AST ALT Total Protein Albumin Procalcitonin Urine Appearance Urine Protein Urine Ketones Urine Blood Urine RBC Amorphous Sediment Urine Bacteria Urine Mucus Stool Occult Blood Viral Test 10/29/18 10/29/18 10/29/18 14:10 15:02 16:07 WBC RBC Hgb Hct MCHC Plt Count Neutrophils # Lymphocytes # ABG pH ABG pCO2 ABG pO2 ABG HCO3 ABG Total CO2 ABG O2 Saturation Sodium Potassium Chloride Carbon Dioxide BUN Creatinine Glucose POC Glucose (mg/dL) 193 H 211 H 171 H Hemoglobin A1c Calcium Magnesium AST ALT Total Protein Albumin Procalcitonin Urine Appearance Urine Protein Urine Ketones Urine Blood Urine RBC Amorphous Sediment Urine Bacteria Urine Mucus Stool Occult Blood Viral Test 10/29/18 10/29/18 10/29/18 17:01 17:54 18:57 WBC RBC Hgb Hct MCHC Plt Count Neutrophils # Lymphocytes # ABG pH ABG pCO2 ABG pO2 ABG HCO3 ABG Total CO2 ABG O2 Saturation Sodium Potassium Chloride Carbon Dioxide BUN Creatinine Glucose POC Glucose (mg/dL) 180 H 101 H 198 H Hemoglobin A1c Calcium Magnesium AST ALT Total Protein Albumin Procalcitonin Urine Appearance Urine Protein Urine Ketones Urine Blood Urine RBC Amorphous Sediment Urine Bacteria Urine Mucus Stool Occult Blood Viral Test 10/29/18 10/29/18 10/29/18 20:01 21:17 21:59 WBC RBC Hgb Hct MCHC Plt Count Neutrophils # Lymphocytes # ABG pH ABG pCO2 ABG pO2 ABG HCO3 ABG Total CO2 ABG O2 Saturation Sodium Potassium Chloride Carbon Dioxide BUN Creatinine Glucose POC Glucose (mg/dL) 241 H 191 H 181 H Hemoglobin A1c Calcium Magnesium AST ALT Total Protein Albumin Procalcitonin Urine Appearance Urine Protein Urine Ketones Urine Blood Urine RBC Amorphous Sediment Urine Bacteria Urine Mucus Stool Occult Blood Viral Test 10/29/18 10/29/18 10/30/18 23:07 23:59 00:58 WBC RBC Hgb Hct MCHC Plt Count Neutrophils # Lymphocytes # ABG pH ABG pCO2 ABG pO2 ABG HCO3 ABG Total CO2 ABG O2 Saturation Sodium Potassium Chloride Carbon Dioxide BUN Creatinine Glucose POC Glucose (mg/dL) 160 H 127 H 143 H Hemoglobin A1c Calcium Magnesium AST ALT Total Protein Albumin Procalcitonin Urine Appearance Urine Protein Urine Ketones Urine Blood Urine RBC Amorphous Sediment Urine Bacteria Urine Mucus Stool Occult Blood Viral Test 10/30/18 10/30/18 10/30/18 02:04 03:11 04:00 WBC 15.1 H RBC 3.56 L Hgb 10.2 L Hct 32.0 L MCHC Plt Count 461 H Neutrophils # Lymphocytes # ABG pH ABG pCO2 ABG pO2 ABG HCO3 ABG Total CO2 ABG O2 Saturation Sodium Potassium Chloride Carbon Dioxide BUN Creatinine Glucose POC Glucose (mg/dL) 160 H 183 H Hemoglobin A1c Calcium Magnesium AST ALT Total Protein Albumin Procalcitonin Urine Appearance Urine Protein Urine Ketones Urine Blood Urine RBC Amorphous Sediment Urine Bacteria Urine Mucus Stool Occult Blood Viral Test 10/30/18 10/30/18 10/30/18 04:00 04:07 04:59 WBC RBC Hgb Hct MCHC Plt Count Neutrophils # Lymphocytes # ABG pH ABG pCO2 ABG pO2 ABG HCO3 ABG Total CO2 ABG O2 Saturation Sodium Potassium Chloride 113 H Carbon Dioxide BUN 64 H Creatinine 1.26 H Glucose 187 H POC Glucose (mg/dL) 193 H 184 H Hemoglobin A1c Calcium Magnesium AST ALT Total Protein Albumin Procalcitonin Urine Appearance Urine Protein Urine Ketones Urine Blood Urine RBC Amorphous Sediment Urine Bacteria Urine Mucus Stool Occult Blood Viral Test 10/30/18 10/30/18 10/30/18 05:04 06:35 07:07 WBC RBC Hgb Hct MCHC Plt Count Neutrophils # Lymphocytes # ABG pH ABG pCO2 46 H ABG pO2 109 H ABG HCO3 27 H ABG Total CO2 28 H ABG O2 Saturation 98.0 H Sodium Potassium Chloride Carbon Dioxide BUN Creatinine Glucose POC Glucose (mg/dL) 176 H 181 H Hemoglobin A1c Calcium Magnesium AST ALT Total Protein Albumin Procalcitonin Urine Appearance Urine Protein Urine Ketones Urine Blood Urine RBC Amorphous Sediment Urine Bacteria Urine Mucus Stool Occult Blood Viral Test 10/30/18 10/30/18 10/30/18 08:07 09:14 10:08 WBC RBC Hgb Hct MCHC Plt Count Neutrophils # Lymphocytes # ABG pH ABG pCO2 ABG pO2 ABG HCO3 ABG Total CO2 ABG O2 Saturation Sodium Potassium Chloride Carbon Dioxide BUN Creatinine Glucose POC Glucose (mg/dL) 173 H 196 H 214 H Hemoglobin A1c Calcium Magnesium AST ALT Total Protein Albumin Procalcitonin Urine Appearance Urine Protein Urine Ketones Urine Blood Urine RBC Amorphous Sediment Urine Bacteria Urine Mucus Stool Occult Blood Viral Test 10/30/18 10/30/18 10/30/18 11:15 12:02 13:18 WBC RBC Hgb Hct MCHC Plt Count Neutrophils # Lymphocytes # ABG pH ABG pCO2 ABG pO2 ABG HCO3 ABG Total CO2 ABG O2 Saturation Sodium Potassium Chloride Carbon Dioxide BUN Creatinine Glucose POC Glucose (mg/dL) 147 H 182 H 165 H Hemoglobin A1c Calcium Magnesium AST ALT Total Protein Albumin Procalcitonin Urine Appearance Urine Protein Urine Ketones Urine Blood Urine RBC Amorphous Sediment Urine Bacteria Urine Mucus Stool Occult Blood Viral Test 10/30/18 10/30/18 10/30/18 14:04 15:03 16:05 WBC RBC Hgb Hct MCHC Plt Count Neutrophils # Lymphocytes # ABG pH ABG pCO2 ABG pO2 ABG HCO3 ABG Total CO2 ABG O2 Saturation Sodium Potassium Chloride Carbon Dioxide BUN Creatinine Glucose POC Glucose (mg/dL) 165 H 169 H 189 H Hemoglobin A1c Calcium Magnesium AST ALT Total Protein Albumin Procalcitonin Urine Appearance Urine Protein Urine Ketones Urine Blood Urine RBC Amorphous Sediment Urine Bacteria Urine Mucus Stool Occult Blood Viral Test 10/30/18 10/30/18 10/30/18 17:06 17:58 18:54 WBC RBC Hgb Hct MCHC Plt Count Neutrophils # Lymphocytes # ABG pH ABG pCO2 ABG pO2 ABG HCO3 ABG Total CO2 ABG O2 Saturation Sodium Potassium Chloride Carbon Dioxide BUN Creatinine Glucose POC Glucose (mg/dL) 165 H 186 H 198 H Hemoglobin A1c Calcium Magnesium AST ALT Total Protein Albumin Procalcitonin Urine Appearance Urine Protein Urine Ketones Urine Blood Urine RBC Amorphous Sediment Urine Bacteria Urine Mucus Stool Occult Blood Viral Test 10/30/18 10/30/18 10/30/18 20:02 21:17 22:00 WBC RBC Hgb Hct MCHC Plt Count Neutrophils # Lymphocytes # ABG pH ABG pCO2 ABG pO2 ABG HCO3 ABG Total CO2 ABG O2 Saturation Sodium Potassium Chloride Carbon Dioxide BUN Creatinine Glucose POC Glucose (mg/dL) 221 H 187 H 199 H Hemoglobin A1c Calcium Magnesium AST ALT Total Protein Albumin Procalcitonin Urine Appearance Urine Protein Urine Ketones Urine Blood Urine RBC Amorphous Sediment Urine Bacteria Urine Mucus Stool Occult Blood Viral Test 10/30/18 10/31/18 10/31/18 23:10 00:00 00:52 WBC RBC Hgb Hct MCHC Plt Count Neutrophils # Lymphocytes # ABG pH ABG pCO2 ABG pO2 ABG HCO3 ABG Total CO2 ABG O2 Saturation Sodium Potassium Chloride Carbon Dioxide BUN Creatinine Glucose POC Glucose (mg/dL) 172 H 169 H 164 H Hemoglobin A1c Calcium Magnesium AST ALT Total Protein Albumin Procalcitonin Urine Appearance Urine Protein Urine Ketones Urine Blood Urine RBC Amorphous Sediment Urine Bacteria Urine Mucus Stool Occult Blood Viral Test 10/31/18 10/31/18 10/31/18 02:00 03:26 04:01 WBC RBC Hgb Hct MCHC Plt Count Neutrophils # Lymphocytes # ABG pH ABG pCO2 ABG pO2 ABG HCO3 ABG Total CO2 ABG O2 Saturation Sodium Potassium Chloride Carbon Dioxide BUN Creatinine Glucose POC Glucose (mg/dL) 152 H 151 H 151 H Hemoglobin A1c Calcium Magnesium AST ALT Total Protein Albumin Procalcitonin Urine Appearance Urine Protein Urine Ketones Urine Blood Urine RBC Amorphous Sediment Urine Bacteria Urine Mucus Stool Occult Blood Viral Test 10/31/18 10/31/18 10/31/18 04:40 04:40 04:44 WBC 16.6 H RBC 3.64 L Hgb 10.3 L Hct 33.1 L MCHC Plt Count Neutrophils # Lymphocytes # ABG pH ABG pCO2 ABG pO2 ABG HCO3 28 H ABG Total CO2 29 H ABG O2 Saturation Sodium 148 H Potassium Chloride 113 H Carbon Dioxide BUN 62 H Creatinine 1.08 H Glucose 141 H POC Glucose (mg/dL) Hemoglobin A1c Calcium Magnesium AST ALT Total Protein Albumin Procalcitonin Urine Appearance Urine Protein Urine Ketones Urine Blood Urine RBC Amorphous Sediment Urine Bacteria Urine Mucus Stool Occult Blood Viral Test 10/31/18 10/31/18 10/31/18 04:44 06:01 06:58 WBC RBC Hgb Hct MCHC Plt Count Neutrophils # Lymphocytes # ABG pH ABG pCO2 ABG pO2 ABG HCO3 ABG Total CO2 ABG O2 Saturation Sodium Potassium Chloride Carbon Dioxide BUN Creatinine Glucose POC Glucose (mg/dL) 150 H 110 H 101 H Hemoglobin A1c Calcium Magnesium AST ALT Total Protein Albumin Procalcitonin Urine Appearance Urine Protein Urine Ketones Urine Blood Urine RBC Amorphous Sediment Urine Bacteria Urine Mucus Stool Occult Blood Viral Test 10/31/18 10/31/18 10/31/18 08:15 10:50 12:00 WBC RBC Hgb Hct MCHC Plt Count Neutrophils # Lymphocytes # ABG pH ABG pCO2 ABG pO2 ABG HCO3 ABG Total CO2 ABG O2 Saturation Sodium Potassium Chloride Carbon Dioxide BUN Creatinine Glucose POC Glucose (mg/dL) 184 H 152 H Hemoglobin A1c Calcium Magnesium AST ALT Total Protein Albumin Procalcitonin 0.16 H Urine Appearance Urine Protein Urine Ketones Urine Blood Urine RBC Amorphous Sediment Urine Bacteria Urine Mucus Stool Occult Blood Viral Test 10/31/18 10/31/18 10/31/18 12:05 14:45 16:25 WBC RBC Hgb Hct MCHC Plt Count Neutrophils # Lymphocytes # ABG pH ABG pCO2 ABG pO2 ABG HCO3 ABG Total CO2 ABG O2 Saturation Sodium Potassium Chloride Carbon Dioxide BUN Creatinine Glucose POC Glucose (mg/dL) 127 H 116 H 119 H Hemoglobin A1c Calcium Magnesium AST ALT Total Protein Albumin Procalcitonin Urine Appearance Urine Protein Urine Ketones Urine Blood Urine RBC Amorphous Sediment Urine Bacteria Urine Mucus Stool Occult Blood Viral Test 10/31/18 10/31/18 10/31/18 18:08 19:55 21:54 WBC RBC Hgb Hct MCHC Plt Count Neutrophils # Lymphocytes # ABG pH ABG pCO2 ABG pO2 ABG HCO3 ABG Total CO2 ABG O2 Saturation Sodium Potassium Chloride Carbon Dioxide BUN Creatinine Glucose POC Glucose (mg/dL) 150 H 133 H 137 H Hemoglobin A1c Calcium Magnesium AST ALT Total Protein Albumin Procalcitonin Urine Appearance Urine Protein Urine Ketones Urine Blood Urine RBC Amorphous Sediment Urine Bacteria Urine Mucus Stool Occult Blood Viral Test 10/31/18 11/01/18 11/01/18 23:54 00:58 02:03 WBC RBC Hgb Hct MCHC Plt Count Neutrophils # Lymphocytes # ABG pH ABG pCO2 ABG pO2 ABG HCO3 ABG Total CO2 ABG O2 Saturation Sodium Potassium Chloride Carbon Dioxide BUN Creatinine Glucose POC Glucose (mg/dL) 250 H 212 H 188 H Hemoglobin A1c Calcium Magnesium AST ALT Total Protein Albumin Procalcitonin Urine Appearance Urine Protein Urine Ketones Urine Blood Urine RBC Amorphous Sediment Urine Bacteria Urine Mucus Stool Occult Blood Viral Test 11/01/18 11/01/18 11/01/18 03:51 04:47 05:06 WBC 14.1 H RBC 3.29 L Hgb 9.4 L Hct 30.0 L MCHC Plt Count Neutrophils # Lymphocytes # ABG pH ABG pCO2 ABG pO2 ABG HCO3 27 H ABG Total CO2 29 H ABG O2 Saturation Sodium Potassium Chloride Carbon Dioxide BUN Creatinine Glucose POC Glucose (mg/dL) 102 H Hemoglobin A1c Calcium Magnesium AST ALT Total Protein Albumin Procalcitonin Urine Appearance Urine Protein Urine Ketones Urine Blood Urine RBC Amorphous Sediment Urine Bacteria Urine Mucus Stool Occult Blood Viral Test 11/01/18 11/01/18 11/01/18 05:06 05:54 09:15 WBC RBC Hgb Hct MCHC Plt Count Neutrophils # Lymphocytes # ABG pH ABG pCO2 ABG pO2 ABG HCO3 ABG Total CO2 ABG O2 Saturation Sodium 148 H Potassium Chloride 116 H Carbon Dioxide BUN 64 H Creatinine 1.22 H Glucose 110 H POC Glucose (mg/dL) 148 H 106 H Hemoglobin A1c Calcium Magnesium AST ALT Total Protein Albumin Procalcitonin Urine Appearance Urine Protein Urine Ketones Urine Blood Urine RBC Amorphous Sediment Urine Bacteria Urine Mucus Stool Occult Blood Viral Test 11/01/18 11/01/18 11/01/18 11:12 12:05 13:22 WBC RBC Hgb Hct MCHC Plt Count Neutrophils # Lymphocytes # ABG pH ABG pCO2 ABG pO2 ABG HCO3 ABG Total CO2 ABG O2 Saturation Sodium Potassium Chloride Carbon Dioxide BUN Creatinine Glucose POC Glucose (mg/dL) 74 L 134 H 193 H Hemoglobin A1c Calcium Magnesium AST ALT Total Protein Albumin Procalcitonin Urine Appearance Urine Protein Urine Ketones Urine Blood Urine RBC Amorphous Sediment Urine Bacteria Urine Mucus Stool Occult Blood Viral Test 11/01/18 11/01/18 11/01/18 13:57 14:56 16:15 WBC RBC Hgb Hct MCHC Plt Count Neutrophils # Lymphocytes # ABG pH ABG pCO2 ABG pO2 ABG HCO3 ABG Total CO2 ABG O2 Saturation Sodium Potassium Chloride Carbon Dioxide BUN Creatinine Glucose POC Glucose (mg/dL) 187 H 149 H 159 H Hemoglobin A1c Calcium Magnesium AST ALT Total Protein Albumin Procalcitonin Urine Appearance Urine Protein Urine Ketones Urine Blood Urine RBC Amorphous Sediment Urine Bacteria Urine Mucus Stool Occult Blood Viral Test 11/01/18 11/01/18 11/01/18 17:16 18:04 19:57 WBC RBC Hgb Hct MCHC Plt Count Neutrophils # Lymphocytes # ABG pH ABG pCO2 ABG pO2 ABG HCO3 ABG Total CO2 ABG O2 Saturation Sodium Potassium Chloride Carbon Dioxide BUN Creatinine Glucose POC Glucose (mg/dL) 123 H 166 H 133 H Hemoglobin A1c Calcium Magnesium AST ALT Total Protein Albumin Procalcitonin Urine Appearance Urine Protein Urine Ketones Urine Blood Urine RBC Amorphous Sediment Urine Bacteria Urine Mucus Stool Occult Blood Viral Test 11/01/18 11/01/18 11/02/18 21:54 23:50 02:04 WBC RBC Hgb Hct MCHC Plt Count Neutrophils # Lymphocytes # ABG pH ABG pCO2 ABG pO2 ABG HCO3 ABG Total CO2 ABG O2 Saturation Sodium Potassium Chloride Carbon Dioxide BUN Creatinine Glucose POC Glucose (mg/dL) 171 H 132 H 286 H Hemoglobin A1c Calcium Magnesium AST ALT Total Protein Albumin Procalcitonin Urine Appearance Urine Protein Urine Ketones Urine Blood Urine RBC Amorphous Sediment Urine Bacteria Urine Mucus Stool Occult Blood Viral Test 11/02/18 11/02/18 11/02/18 02:07 02:46 02:46 WBC 13.1 H RBC 3.42 L Hgb 9.8 L Hct 31.8 L MCHC 30.8 L Plt Count Neutrophils # 12.1 H Lymphocytes # 0.4 L ABG pH ABG pCO2 ABG pO2 ABG HCO3 ABG Total CO2 ABG O2 Saturation Sodium Potassium Chloride Carbon Dioxide BUN 67 H Creatinine 1.27 H Glucose 278 H POC Glucose (mg/dL) 300 H Hemoglobin A1c Calcium 8.0 L Magnesium AST ALT Total Protein 5.4 L Albumin 2.9 L Procalcitonin Urine Appearance Urine Protein Urine Ketones Urine Blood Urine RBC Amorphous Sediment Urine Bacteria Urine Mucus Stool Occult Blood Viral Test 11/02/18 11/02/18 11/02/18 04:02 04:23 05:55 WBC RBC Hgb Hct MCHC Plt Count Neutrophils # Lymphocytes # ABG pH 7.46 H ABG pCO2 ABG pO2 ABG HCO3 29 H ABG Total CO2 ABG O2 Saturation Sodium Potassium Chloride Carbon Dioxide BUN Creatinine Glucose POC Glucose (mg/dL) 225 H 133 H Hemoglobin A1c Calcium Magnesium AST ALT Total Protein Albumin Procalcitonin Urine Appearance Urine Protein Urine Ketones Urine Blood Urine RBC Amorphous Sediment Urine Bacteria Urine Mucus Stool Occult Blood Viral Test 11/02/18 11/02/18 11/02/18 08:08 08:38 09:54 WBC RBC Hgb Hct MCHC Plt Count Neutrophils # Lymphocytes # ABG pH ABG pCO2 ABG pO2 ABG HCO3 ABG Total CO2 ABG O2 Saturation Sodium Potassium Chloride Carbon Dioxide BUN Creatinine Glucose POC Glucose (mg/dL) 197 H 215 H 188 H Hemoglobin A1c Calcium Magnesium AST ALT Total Protein Albumin Procalcitonin Urine Appearance Urine Protein Urine Ketones Urine Blood Urine RBC Amorphous Sediment Urine Bacteria Urine Mucus Stool Occult Blood Viral Test 11/02/18 11/02/18 11/02/18 11:11 11:51 13:54 WBC RBC Hgb Hct MCHC Plt Count Neutrophils # Lymphocytes # ABG pH ABG pCO2 ABG pO2 ABG HCO3 ABG Total CO2 ABG O2 Saturation Sodium Potassium Chloride Carbon Dioxide BUN Creatinine Glucose POC Glucose (mg/dL) 152 H 142 H 167 H Hemoglobin A1c Calcium Magnesium AST ALT Total Protein Albumin Procalcitonin Urine Appearance Urine Protein Urine Ketones Urine Blood Urine RBC Amorphous Sediment Urine Bacteria Urine Mucus Stool Occult Blood Viral Test - Diagnostic Findings Additional findings: CT Head wo cont 11/02/18. Limited exam due to artifacts of the posterior fossa. No ICH. Nil acute. Assessment and Plan Assessment: AMS- non-focal exam; some evidence of cortical function. May be metabolic encephalopathy r/o other possibilities such as subclinical seizure or anoxic brain injury Plan: -EEG today -CT Head reviewed. Limited exam. Would need MRI for better visualization of the posterior fossa and also to assess for anoxic brain injury -No S+S to suggest ROBOTICS SYSTEMS ENGINEER infection -d/w patient's at bedside in detail. All questions answered. Thank you for this consultation. Please call with ?. Time with Patient: Greater than 30 (Time spent in direct patient care, greater t avila 50% of which was spent in [id number] counseling and coordination of care: 70 minutes.)
--- NOTE | 2018-11-02 16:41 | EEG ---
ELECTROENCEPHALOGRAM REPORT DATE OF SERVICE: 11/02/2018 CLINICAL HISTORY: 58 year-old right handed female with prolonged hospitalization due to sepsis and pneumonia. She was found to be encephalopathic. EEG is performed to rule out subclinical seizures. TYPE OF RECORDING: Bedside tracing using the 10-20 international electrode placement system. The patient was severely agitated during recording and had to be administered Dilaudid 1 mg, 14 minutes into the test. EEG FINDINGS: At the beginning of this recording, there are significant EMG artifacts due to the patient's frequent body movements that obscure the tracing. After Dilaudid was administered, the EMG artifacts subside and there is appearance of polymorphic theta and delta slowing. Provocative maneuvers such as photic stimulation and hyperventilation are not performed in this recording. No definitive sleep architecture is seen. There is no background asymmetry, ictal or interictal patterns appreciated. IMPRESSION: This is an abnormal electroencephalogram with excessive background slowing but otherwise without background asymmetry or epileptiform discharges. This can be seen in cerebral dysfunction or any cause such as metabolic encephalopathy. Clinical correlation is advised. PEDRO / REJI: [id number] / MTDD
[2018-11-02 17:14] LABS: Glucose,Whole Blood 228 mg/dL (75-99)
--- NOTE | 2018-11-02 17:26 | PN ---
PROGRESS NOTE Patient is seen for followup for hypernatremia and acute kidney injury. Her sodium has improved significantly. It is down to 142. The patient is maintained on free water 200 mL q.4 hours down the feeding tube. Renal function also is improving. Creatinine is at 1.27. It had peaked at about 1.45. Patient continues to have good urine output. PHYSICAL EXAMINATION: This morning: Blood pressure was 148/68, heart rate of 60 per minute. She is afebrile. Examination of the heart S1, S2. Examination of the lungs, bilateral breath sounds are heard. Abdomen is soft, distended, nontender. Examination of lower extremities shows edema 1+ bilaterally. LEGAL SUPPORT ASSISTANT exam showed the patient had been moving all 4 extremities. LABS: Sodium 142, potassium 4.7, chloride 107, BUN 67, serum creatinine 1.27, and albumin 2.9, hemoglobin 9.8 g/dL. ASSESSMENT: 1. Acute kidney injury, acute tubular necrosis, currently improving. 2. Hypernatremia associated with free water deficit, improved with increasing the free water down the feeding tube. 3. Mild volume overload maintained on IV Lasix with good urine output. 4. Respiratory failure, maintained on vent, status post trach and PEG. 5. Right lower lobe pneumonia and sepsis status post antibiotics. PLAN: Continue the current dose of free water. Repeat labs in a.m. continue to avoid nephrotoxic agents. MMODL / IJN: [id number] /
[2018-11-02 18:00] LABS: Glucose,Whole Blood 198 mg/dL (75-99)
[2018-11-02 20:32] LABS: Glucose,Whole Blood 112 mg/dL (75-99)
[2018-11-02] MEDS: MONTELUKAST 10 MG TAB PO SCH (21:13)
[2018-11-02] MEDS: ATORVASTATIN 40 MG TAB PO SCH (21:13)
[2018-11-02] MEDS: SERTRALINE 50 MG TAB PO SCH (21:13)
[2018-11-02 22:12] LABS: Glucose,Whole Blood 151 mg/dL (75-99)
[2018-11-02 23:43] LABS: Glucose,Whole Blood 170 mg/dL (75-99)
[2018-11-03] MEDS: HYDROmorphone 1 MG/ML 1 ML SYRINGE IVP PRN ×7 (00:07→21:34)
[2018-11-03 02:16] LABS: Glucose,Whole Blood 206 mg/dL (75-99)
[2018-11-03] MEDS: IPRATROPIUM-ALBUTEROL 3 ML NEB INHALATION SCH ×6 (03:30→23:44)
[2018-11-03] MEDS: INSULIN REGULAR 100 UNIT in SODIUM CHLORIDE 0.9% 100 ML IV SCH ×2 (04:26→21:46)
[2018-11-03 05:03] LABS: ABG Base Excess 4.9 mmol/L; ABG HCO3 30 mmol/L (21-25); ABG Oxygen Saturation 90.2 % (94-97); ABG PCO2 47 mmHg (35-45); ABG PH 7.41 (7.35-7.45); ABG PO2 61 mmHg (83-108); ABG TCO2 31 mmol/L (19-24); Allen Test Performed? Yes
[2018-11-03 05:22] LABS: Glucose,Whole Blood 186 mg/dL (75-99)
[2018-11-03 05:28] LABS: HCT 28.7 % (34.0-46.0); HGB 9.7 gm/dL (11.4-16.0); Hypochromasia Slight; MCH 30.1 pg (25.0-35.0); MCHC 33.8 g/dL (31.0-37.0); MCV 89.1 fL (80.0-100.0); Mean Platelet Volume 8.8; Platelet Count 222 k/uL (150-450); RBC 3.22 m/uL (3.80-5.40); RDW 14.1 % (11.5-15.5); WBC 16.7 k/uL (3.8-10.6)
[2018-11-03 05:36] LABS: Calcium 8.3 mg/dL (8.4-10.2); Potassium 4.8 mmol/L (3.5-5.1)
[2018-11-03 05:51] LABS: Glucose,Whole Blood 189 mg/dL (75-99)
[2018-11-03] MEDS: NOREPINEPHRINE 4 MG in SODIUM CHLORIDE 0.9% 250 ML IV SCH ×2 (06:50→21:34)
--- NOTE | 2018-11-03 07:44 | XR ---
EXAMINATION TYPE: XR chest 1V portable DATE OF EXAM: 11/03/2018 COMPARISON: 11/01/2018 HISTORY: Shortness of breath FINDINGS: There are bilateral pleural effusions with cardiomegaly and bibasilar infiltrate. There is a diffuse interstitial pattern. Tracheostomy tube and PICC line noted. Biapical pleural thickening. Linear den sity overlying the left upper lobe may be superficial to the patient. Correlate clinically. Underlyin g COPD suspected. IMPRESSION: 1. Stable bilateral consolidation and pleural effusion correlate for pneumonia. Otherwise consider CH F.
[2018-11-03] MEDS: BUDESONIDE 1 MG/2 ML NEBU INHALATION SCH ×2 (07:48→20:20)
[2018-11-03] MEDS: FORMOTEROL FUMARATE 20 MCG/2 ML NEBU INHALATION SCH ×2 (07:48→20:20)
[2018-11-03] MEDS: PANTOPRAZOLE 40 MG/10 ML VIAL IVP SCH ×2 (08:11→21:32)
[2018-11-03] MEDS: APIXABAN 5 MG TAB PO SCH ×2 (08:12→21:31)
[2018-11-03] MEDS: methylPREDNISolone SOD SUCCI 40 MG/ML 1 ML VIAL IV SCH (08:12)
[2018-11-03] MEDS: METOPROLOL TARTRATE 25 MG TAB PO SCH ×3 (08:12→21:31)
[2018-11-03] MEDS: AMIODARONE 200 MG TAB PO SCH ×2 (08:12→21:31)
[2018-11-03] MEDS: MAGNESIUM OXIDE 400 MG TAB PO SCH (08:12)
[2018-11-03] MEDS: amLODIPine 5 MG TAB PO SCH ×2 (08:12→21:32)
[2018-11-03] MEDS: CHLORHEXIDINE GLUCONATE 15 ML CUP MUCOUS MEM SCH ×2 (08:12→21:32)
[2018-11-03 08:40] LABS: Glucose,Whole Blood 144 mg/dL (75-99)
--- NOTE | 2018-11-03 08:46 | PN ---
PROGRESS NOTE HISTORY: Ms. Cota is 58-year-old female who presented with respiratory failure with pneumonia, had episode of paroxysmal atrial fibrillation. She is awake but not following commands. She continued to be in sinus mechanism. There is no evidence of malignant arrhythmia. Hemodynamically, she is stable. She is back on her anticoagulation. Her urine output has been good. She is tolerating feeding tube and has a trach in place. She continues to be on Eliquis 5 mg twice a day, amiodarone 200 mg twice a day, amlodipine 5 mg twice a day, metoprolol tartrate 25 mg 3 times a day. PHYSICAL EXAMINATION: Blood pressure running in the 120s with a heart in the 80s. LUNGS: Clear anteriorly. HEART: Regular rhythm S1, S2. No S3. No rub. ABDOMEN: Soft nontender. EXTREMITIES: No significant edema. NEUROLOGIC: She is awake but not following commands. LAB DATA: Lab data revealed hemoglobin of 9.7, BUN and creatinine of 61 and 1.08. IMPRESSION: 1. Respiratory failure with prolonged intubation for pneumonia. 2. Paroxysmal fibrillation. 3. Status post tracheostomy. 4. Hypertension, resolved. 5. Diabetes mellitus. 6. Metabolic encephalopathy. RECOMMENDATIONS: From the cardiac standpoint, we will continue present therapy. I would recommend continue on the present dose of amiodarone for 1 week and then cut down to 200 mg daily. Continue anticoagulation. Depending on her progress, further recommendations will be made. PEDRO / REJI: [id number] /
--- NOTE | 2018-11-03 10:34 | P.PN ---
Subjective Progress Note Date: 11/03/18 Principal diagnosis: Metabolic encephalopathy More awake and interactive per family this am. EEG done yesterday. No new neuro c/o. Objective - Vital Signs Vital signs: Vital Signs Temp 98.6 F 11/03/18 08:00 Pulse 71 11/03/18 09:30 Resp 10 L 11/03/18 09:30 BP 130/69 11/03/18 09:30 Pulse Ox 97 11/03/18 09:30 Intake & Output 11/02/18 11/03/18 11/03/18 18:59 06:59 18:59 Intake Total 510.552 279.086 566.984 Output Total 1340 2020 340 Balance -829.448 -1740.914 226.984 Weight 87.9 kg Intake: IV 260 240 60 0.9NS 260 240 60 Intake, IV Titration 82.552 39.086 26.984 Amount Insulin Regular 100 unit 82.552 39.086 26.984 In Sodium Chloride 0.9% 100 ml @ Per Protocol IV .Q0M [facility] Rx#:[id number] Tube Feeding 168 280 Other 200 Output: Urine 1340 1520 340 Stool 500 Other: Voiding Method Indwelling Catheter Indwelling Catheter Indwelling Catheter ABP, PAP, CO, CI - Last Documented Arterial Blood Pressure 109/60 - Exam MS GCS [id number] Regards examiner and family. Able to open and close eyes on command CN PERRL Blinks to threat bilaterally Resists Doll's maneuver +Corneal's +Grimace to nostril stim bilaterally +Gag Motor Normal bulk/tone No tremors, asterixis, myoclonus or other adventitious movements Little spontaneous motor movements Sens W/D to nailbed stim x4 No obvious neglect Coord No apparent ocular dysmetria as she tracks examiner DTRs 1+/4 sym throughout Toes mute bilaterally No ankle clonus Gait Cannot test due to AMS - Labs CBC & Chem 7: 11/03/18 05:06 11/03/18 05:06 Labs: Abnormal Lab Results - Last 24 Hours (Table) 11/02/18 11/02/18 11/02/18 Range/Units 11:11 11:51 13:54 WBC (3.8-10.6) k/uL RBC (3.80-5.40) m/uL Hgb (11.4-16.0) gm/dL Hct (34.0-46.0) % ABG pCO2 (35-45) mmHg ABG pO2 (83-108) mmHg ABG HCO3 (21-25) mmol/L ABG Total CO2 (19-24) mmol/L ABG O2 Saturation (94-97) % Chloride (98-107) mmol/L BUN (7-17) mg/dL Creatinine (0.52-1.04) mg/dL Glucose (74-99) mg/dL POC Glucose (mg/dL) 152 H 142 H 167 H (75-99) mg/dL Calcium (8.4-10.2) mg/dL 11/02/18 11/02/18 11/02/18 Range/Units 16:48 17:59 20:06 WBC (3.8-10.6) k/uL RBC (3.80-5.40) m/uL Hgb (11.4-16.0) gm/dL Hct (34.0-46.0) % ABG pCO2 (35-45) mmHg ABG pO2 (83-108) mmHg ABG HCO3 (21-25) mmol/L ABG Total CO2 (19-24) mmol/L ABG O2 Saturation (94-97) % Chloride (98-107) mmol/L BUN (7-17) mg/dL Creatinine (0.52-1.04) mg/dL Glucose (74-99) mg/dL POC Glucose (mg/dL) 228 H 198 H 112 H (75-99) mg/dL Calcium (8.4-10.2) mg/dL 11/02/18 11/02/18 11/03/18 Range/Units 22:08 23:39 02:02 WBC (3.8-10.6) k/uL RBC (3.80-5.40) m/uL Hgb (11.4-16.0) gm/dL Hct (34.0-46.0) % ABG pCO2 (35-45) mmHg ABG pO2 (83-108) mmHg ABG HCO3 (21-25) mmol/L ABG Total CO2 (19-24) mmol/L ABG O2 Saturation (94-97) % Chloride (98-107) mmol/L BUN (7-17) mg/dL Creatinine (0.52-1.04) mg/dL Glucose (74-99) mg/dL POC Glucose (mg/dL) 151 H 170 H 206 H (75-99) mg/dL Calcium (8.4-10.2) mg/dL 11/03/18 11/03/18 11/03/18 Range/Units 04:19 05:00 05:06 WBC 16.7 H (3.8-10.6) k/uL RBC 3.22 L (3.80-5.40) m/uL Hgb 9.7 L (11.4-16.0) gm/dL Hct 28.7 L (34.0-46.0) % ABG pCO2 47 H (35-45) mmHg ABG pO2 61 L (83-108) mmHg ABG HCO3 30 H (21-25) mmol/L ABG Total CO2 31 H (19-24) mmol/L ABG O2 Saturation 90.2 L (94-97) % Chloride (98-107) mmol/L BUN (7-17) mg/dL Creatinine (0.52-1.04) mg/dL Glucose (74-99) mg/dL POC Glucose (mg/dL) 186 H (75-99) mg/dL Calcium (8.4-10.2) mg/dL 11/03/18 11/03/18 11/03/18 Range/Units 05:06 05:48 08:01 WBC (3.8-10.6) k/uL RBC (3.80-5.40) m/uL Hgb (11.4-16.0) gm/dL Hct (34.0-46.0) % ABG pCO2 (35-45) mmHg ABG pO2 (83-108) mmHg ABG HCO3 (21-25) mmol/L ABG Total CO2 (19-24) mmol/L ABG O2 Saturation (94-97) % Chloride 110 H (98-107) mmol/L BUN 61 H (7-17) mg/dL Creatinine 1.08 H (0.52-1.04) mg/dL Glucose 200 H (74-99) mg/dL POC Glucose (mg/dL) 189 H 144 H (75-99) mg/dL Calcium 8.3 L (8.4-10.2) mg/dL - Imaging and Cardiology EEG 11/02/18. Polymorphic theta and delta slowing c/w metabolic encephalopathy. Assessment and Plan Assessment: AMS c/w metabolic encephalopathy. Neurologically improving. Plan: -EEG findings consistent with metabolic encephalopathy. -CT Head reviewed. Limited exam. d/w family at length about further neuroimaging such as MRI. Since she is improving neurologically, we have decided to hold off. -Minimize seation to follow neuro exams. -d/w patient's at bedside in detail. All questions answered. Thank you again for this consultation. Time with Patient: Less than 30 (Time spent in direct patient care, greater than 50% of which was spent in [id number] counseling and coordination of care: 25 minutes.)
[2018-11-03 10:38] LABS: Glucose,Whole Blood 113 mg/dL (75-99)
[2018-11-03] MEDS: CLEVIDIPINE BUTYRATE 25 MG in EMPTY BAG 1 BAG IV SCH (11:02)
[2018-11-03] MEDS: predniSONE 20 MG TAB PO SCH (11:02)
[2018-11-03 11:59] LABS: Glucose,Whole Blood 203 mg/dL (75-99)
[2018-11-03 12:21] LABS: Glucose,Whole Blood 211 mg/dL (75-99)
[2018-11-03] MEDS ORDERED: HALOPERIDOL LACTATE 5 MG/ML 1 ML VIAL IVP PRN (12:27)
--- NOTE | 2018-11-03 13:06 | P.PN ---
Subjective Progress Note Date: 11/03/18 On 11/01/2018, the patient is being seen for a follow-up. The patient is still off sedation. Unfortunately she has not fully recovered in terms of her mentation. She is gradually opening up her eyes and she grimaces to painful stimulation. Nevertheless, she has not following any simple commands this point in time. She shakes and moves her legs. Her neurologic exam is nonfocal. Pupils are equal and reactive to light. No facial asymmetry. No focal neurological deficit at this point in time. The patient is afebrile. The patient's hemodynamically stable. The patient is a tracheostomy tube in place. The patient remains on a assist-control mode of ventilation with a tidal volume 500 with a rate of 22 of and an FiO2 of 40% with a PEEP of 10. The morning blood gases showed a pH of 7.43 with a pCO2 of 42 and pO2 of 86. This was on FiO2 of 40%. Meanwhile, the patient is still on enteral feeding for nutritional support. The patient is on vital high protein at the rate of 56 mL an hour. The patient is producing adequate amount of urine output. The patient's that fluid balance over the past 24 hours has been in the order of negative balance - 362 mL. The patient is on a maintenance fluid of 20 mL of hour of 0.9 normal saline. She is afebrile. She has some edema in all 4 extremities pressure in the lower extremities. Her urine output is adequate and order of 1-50 mL an hour and the patient is currently being diuresis with Lasix 40 mg IV every 12 hours. She is on IV Protonix. She is on DuoNeb nebulized treatments around the clock. She is on IV Solu-Medrol. She is on oral amiodarone and her rhythm is currently sinus. Her blood pressure is under good control as the patient is taking Norvasc 5 mg by mouth twice a day and she is currently off Cleviprex. She is also on metoprolol 25 mg by mouth twice a day. On 11/02/2018, I'm seeing this patient for a follow-up. The patient is more awake compared to yesterday. I will say that she is still encephalopathic. N evertheless she is able to follow some simple orders. She was able to blink her eyes upon demand and she was able to stick out her tongue upon demand. She is moving her lower extremities more than the upper extremities. Despite her some limited improvement, I'm going to undergo a neurologic workup. I'm going to consult neurology regarding this ongoing encephalopathy. I'm also going to order a CAT scan of the brain. She is afebrile. She is on a mechanical ventilator and today she was switched VC plus mode. She is currently on FiO2 of 40% with a PEEP of 6. The blood gases showed a pH of 7.46 with a pCO2 of 41 pO2 of 83. White cell count at 13.1. Hemoglobin was at 9.8. She is afebrile. Chest x-ray showing chronic and limited infiltration of the lung bases bilaterally. Sodium level is at 142. The patient is receiving enteral feeding for nutritional support via a PEG tube. The tracheostomy site is dry clean and intact. He was dynamically stable. Blood pressure is stable.. The patient is on oral amiodarone and overnight the patient had a run of atrial fibrillation. She is having paroxysmal atrial fibrillation and the patient will be started back on anticoagulation with Eliquis 5 mg by mouth twice a day. No other significant events otherwise for now. The patient is currently off propofol. The patient remains on IV Solu-Medrol. She is on broncho-dilators on the current and she has completed antibiotic course. On 11/03/2018 and seeing this patient for a follow-up. The patient is awake. The patient is more interactive on today's evaluation. She is profoundly weak. She has had significant critical illness polyneuropathy and myopathy. She is undergoing daily physical therapy. The plan is to send this patient for select specialty by tomorrow. Meanwhile, she is on a pressure support of 5 and a PEEP of 5 and she is tolerating the setting without any major difficulties and she is generating enough tidal volumes. The chest x-ray shows stable findings. Blood gases from today showed a pH of 7.41 with a pCO2 of 47 and pO2 of 61. Chest x- ray shows no significant acute abnormalities. The patient is receiving enteral feeding. PEG tube. Hemodynamically stable. No nausea. No vomiting. No emesis. There is some ongoing liquidy bowel movements/diarrhea he had the cardiac rhythm is sinus. The patient started on Eliquis. Objective - Vital Signs Vital signs: Vital Signs Temp 99.6 F 11/03/18 12:00 Pulse 69 11/03/18 12:38 Resp 17 11/03/18 12:00 BP 96/49 11/03/18 12:00 Pulse Ox 94 L 11/03/18 12:00 Intake & Output 11/02/18 11/03/18 11/03/18 18:59 06:59 18:59 Intake Total 510.552 279.086 991.548 Output Total 1340 2020 1190 Balance -829.448 -1740.914 -198.452 Weight 87.9 kg Intake: IV 260 240 100 0.9NS 260 240 100 Intake, IV Titration 82.552 39.086 43.548 Amount Insulin Regular 100 unit 82.552 39.086 43.548 In Sodium Chloride 0.9% 100 ml @ Per Protocol IV .Q0M [facility] Rx#:[id number] Tube Feeding 168 448 Other 400 Output: Urine 1340 1520 690 Stool 500 500 Other: Voiding Method Indwelling Catheter Indwelling Catheter Indwelling Catheter ABP, PAP, CO, CI - Last Documented Arterial Blood Pressure 109/60 - Exam Gen. appearance, comfortable likely distress. . She has a tracheostomy tube in place. Head exam was generally normal. There was no scleral icterus or corneal arcus. Mucous membranes were moist. Neck is supple. The patient is a tracheostomy tube in place. No adenopathy. No thyromegaly. No other abnormalities noted. No leaks on the tracheostomy tube. Lung sounds are diminished specially in the right lung base. There is also some crackles and scattered rhonchi heard bilaterally. Cardiac exam revealed the PMI to be normally situated and sized. The rhythm was regular and no extrasystoles were noted during several minutes of auscultation. The first and second heart sounds were normal and physiologic splitting of the second heart sound was noted. There were no murmurs, rubs, clicks, or gallops. Abdominal exam revealed normal bowel sounds. The abdomen was soft, non-tender, and without masses, organomegaly, or appreciable enlargement of the abdominal aorta. Patient has a PEG tube in place. Examination of the extremities revealed easily palpable radial, femoral and pedal pulses. There was no cyanosis, clubbing or his increased edema in all 4 extremities more so on the right upper extremity. The patient is a PICC line in the right upper extremity. Examination of the skin revealed no evidence of significant rashes, suspicious appearing nevi or other concerning lesions. Neurologically the patient is awake and following simple commands. Profound motor weakness both in the upper and lower extremities. No facial asymmetry. Pupils are equal and reactive to light. - Labs CBC & Chem 7: 11/03/18 05:06 11/03/18 05:06 Labs: Abnormal Lab Results - Last 24 Hours (Table) 11/02/18 11/02/18 11/02/18 Range/Units 11:51 13:54 16:48 WBC (3.8-10.6) k/uL RBC (3.80-5.40) m/uL Hgb (11.4-16.0) gm/dL Hct (34.0-46.0) % ABG pCO2 (35-45) mmHg ABG pO2 (83-108) mmHg ABG HCO3 (21-25) mmol/L ABG Total CO2 (19-24) mmol/L ABG O2 Saturation (94-97) % Chloride (98-107) mmol/L BUN (7-17) mg/dL Creatinine (0.52-1.04) mg/dL Glucose (74-99) mg/dL POC Glucose (mg/dL) 142 H 167 H 228 H (75-99) mg/dL Calcium (8.4-10.2) mg/dL 11/02/18 11/02/18 11/02/18 Range/Units 17:59 20:06 22:08 WBC (3.8-10.6) k/uL RBC (3.80-5.40) m/uL Hgb (11.4-16.0) gm/dL Hct (34.0-46.0) % ABG pCO2 (35-45) mmHg ABG pO2 (83-108) mmHg ABG HCO3 (21-25) mmol/L ABG Total CO2 (19-24) mmol/L ABG O2 Saturation (94-97) % Chloride (98-107) mmol/L BUN (7-17) mg/dL Creatinine (0.52-1.04) mg/dL Glucose (74-99) mg/dL POC Glucose (mg/dL) 198 H 112 H 151 H (75-99) mg/dL Calcium (8.4-10.2) mg/dL 11/02/18 11/03/1819 Range/Units 23:39 02:02 04:19 WBC (3.8-10.6) k/uL RBC (3.80-5.40) m/uL Hgb (11.4-16.0) gm/dL Hct (34.0-46.0) % ABG pCO2 (35-45) mmHg ABG pO2 (83-108) mmHg ABG HCO3 (21-25) mmol/L ABG Total CO2 (19-24) mmol/L ABG O2 Saturation (94-97) % Chloride (98-107) mmol/L BUN (7-17) mg/dL Creatinine (0.52-1.04) mg/dL Glucose (74-99) mg/dL POC Glucose (mg/dL) 170 H 206 H 186 H (75-99) mg/dL Calcium (8.4-10.2) mg/dL 11/03/18 11/03/18 11/03/18 Range/Units 05:00 05:06 05:06 WBC 16.7 H (3.8-10.6) k/uL RBC 3.22 L (3.80-5.40) m/uL Hgb 9.7 L (11.4-16.0) gm/dL Hct 28.7 L (34.0-46.0) % ABG pCO2 47 H (35-45) mmHg ABG pO2 61 L (83-108) mmHg ABG HCO3 30 H (21-25) mmol/L ABG Total CO2 31 H (19-24) mmol/L ABG O2 Saturation 90.2 L (94-97) % Chloride 110 H (98-107) mmol/L BUN 61 H (7-17) mg/dL Creatinine 1.08 H (0.52-1.04) mg/dL Glucose 200 H (74-99) mg/dL POC Glucose (mg/dL) (75-99) mg/dL Calcium 8.3 L (8.4-10.2) mg/dL 11/03/18 11/03/18 11/03/18 Range/Units 05:48 08:01 09:49 WBC (3.8-10.6) k/uL RBC (3.80-5.40) m/uL Hgb (11.4-16.0) gm/dL Hct (34.0-46.0) % ABG pCO2 (35-45) mmHg ABG pO2 (83-108) mmHg ABG HCO3 (21-25) mmol/L ABG Total CO2 (19-24) mmol/L ABG O2 Saturation (94-97) % Chloride (98-107) mmol/L BUN (7-17) mg/dL Creatinine (0.52-1.04) mg/dL Glucose (74-99) mg/dL POC Glucose (mg/dL) 189 H 144 H 113 H (75-99) mg/dL Calcium (8.4-10.2) mg/dL 11/03/18 11/03/18 Range/Units 11:57 12:18 WBC (3.8-10.6) k/uL RBC (3.80-5.40) m/uL Hgb (11.4-16.0) gm/dL Hct (34.0-46.0) % ABG pCO2 (35-45) mmHg ABG pO2 (83-108) mmHg ABG HCO3 (21-25) mmol/L ABG Total CO2 (19-24) mmol/L ABG O2 Saturation (94-97) % Chloride (98-107) mmol/L BUN (7-17) mg/dL Creatinine (0.52-1.04) mg/dL Glucose (74-99) mg/dL POC Glucose (mg/dL) 203 H 211 H (75-99) mg/dL Calcium (8.4-10.2) mg/dL Assessment and Plan Plan: Impression 1 acute hypoxic respiratory failure secondary to right lower lobe pneumonia. The patient had prolonged ventilator dependent respiratory failure and the pa tient is currently post tracheostomy tube insertion. The patient is post prolonged intubation mechanical ventilation and ultimately she required tracheostomy tube insertion as part of her weaning process. She is currently down to a PEEP of 5 with an FiO2 of 40%. Blood gases was noted and the patient is adequate oxygenation. No significant signs of bronchospasm or wheezing. She is recovering from her pneumonia. On today's evaluation the patient was switched upper support of 5 and PEEP of 5 and the patient is able to tolerate this setting without any major difficulties. Overall pulmonary status is stable for now. 2 status post tracheostomy and PEG tube insertion for prolonged ventilator dependent respiratory failure. Surgery was done on 10/28/2018 3 suspect secondary to pneumonia, improving, and the patient is currently off antibiotics and the pro-calcitonin level is at 0.16. 4 hypotension secondary to sepsis, resolved 5 diabetes mellitus type 2 6 COPD 7 asthma 8 history of diverticulosis 9 hypertension 10 atrial fibrillation currently back into normal sinus rhythm. Rate is controlled and the patient is currently on amiodarone. Eliquis also started as long-term anticoagulation. 11 metabolic encephalopathy, probably related to prolonged sedation and the CAT scan of the brain is negative and this is consistent with prolonged hospitalization and drug effect. More interactive on today's evaluation 12 motor weakness both in upper and lower extremities 13 edema in the upper and lower extremities bilaterally more so on the right upper extremity. Plan We'll continue vent support. Keep the patient on pressure support of 5 and a PEEP of 5. Physical therapy. Discontinue the Medrol and put the patient prednisone burst taper starting with 20 mg. Continue enteral feeding for nutritional support. Daily physical therapy. The patient will be transferred to select specialty tomorrow for further rehabilitation. Ultrasound of the right approximately done to rule out DVT. The patient is already on long-term anticoagulation with Eliquis. No issues with hypertension. BP is under good control for now. Continue enteral feeding. We'll follow. Time with Patient: Greater than 30
--- NOTE | 2018-11-03 13:27 | P.PN ---
Subjective 58-year-old female admitted 2 weeks ago for sepsis and pneumonia. She was intubated. She was eventually trached and had a PEG tube for failure to wean. 10/31/2018 Today her sedation was turned down. She is not responding to commands as much. She is not moving her upper extremities except for shortening of the shoulders involuntarily. She has fixed gaze and is not following any directions Review of system was not possible due to the patient's condition. 11/01/2018 Patient still not responding. Sedation and on since yesterday. Review of systems was not possible because of her condition 11/02/2018 Patient has her eyes open not responding. She might move her lower extremities but not moving her upper extremity that much. Review of systems is not able to be possible because of her mental status 11/03/2018 Patient more awake and responding to commands by her She is moving her upper and lower extremities more. Objective - Vital Signs Vital signs: Vital Signs Temp 99.6 F 11/03/18 12:00 Pulse 69 11/03/18 12:38 Resp 17 11/03/18 12:00 BP 96/49 11/03/18 12:00 Pulse Ox 94 L 11/03/18 12:00 Intake & Output 11/02/18 11/03/18 11/03/18 18:59 06:59 18:59 Intake Total 510.552 279.086 991.548 Output Total 1340 2020 1190 Balance -829.448 -1740.914 -198.452 Weight 87.9 kg Intake: IV 260 240 100 0.9NS 260 240 100 Intake, IV Titration 82.552 39.086 43.548 Amount Insulin Regular 100 unit 82.552 39.086 43.548 In Sodium Chloride 0.9% 100 ml @ Per Protocol IV .Q0M [facility] Rx#:[id number] Tube Feeding 168 448 Other 400 Output: Urine 1340 1520 690 Stool 500 500 Other: Voiding Method Indwelling Catheter Indwelling Catheter Indwelling Catheter ABP, PAP, CO, CI - Last Documented Arterial Blood Pressure 109/60 - Exam On exam, patient is awake but not responding to any commands or any stimuli HEENT: Conjunctivae normal. eyes normal. NECK: No JVD. No thyroid enlargement. No LNs CARDIOVASCULAR: Sonesta positive RESPIRATION: Breath sounds diminished in the bases. No rhonchi or crackles. No bronchial breathing. ABDOMEN: Soft, nontender . No guarding. no masses palpable. No ascites, No hepatosplenomegaly.Bowel sounds heard. LEGS: No edema. no swelling NERVOUS SYSTEM: Patient now starting to respond to her when he calls her name. She is tracking him and responding to his commands and obeying his commands. - Labs CBC & Chem 7: 11/03/18 05:06 11/03/18 05:06 Labs: Abnormal Lab Results - Last 24 Hours (Table) 11/02/18 11/02/18 11/02/18 Range/Units 13:54 16:48 17:59 WBC (3.8-10.6) k/uL RBC (3.80-5.40) m/uL Hgb (11.4-16.0) gm/dL Hct (34.0-46.0) % ABG pCO2 (35-45) mmHg ABG pO2 (83-108) mmHg ABG HCO3 (21-25) mmol/L ABG Total CO2 (19-24) mmol/L ABG O2 Saturation (94-97) % Chloride (98-107) mmol/L BUN (7-17) mg/dL Creatinine (0.52-1.04) mg/dL Glucose (74-99) mg/dL POC Glucose (mg/dL) 167 H 228 H 198 H (75-99) mg/dL Calcium (8.4-10.2) mg/dL 11/02/18 11/02/18 11/02/18 Range/Units 20:06 22:08 23:39 WBC (3.8-10.6) k/uL RBC (3.80-5.40) m/uL Hgb (11.4-16.0) gm/dL Hct (34.0-46.0) % ABG pCO2 (35-45) mmHg ABG pO2 (83-108) mmHg ABG HCO3 (21-25) mmol/L ABG Total CO2 (19-24) mmol/L ABG O2 Saturation (94-97) % Chloride (98-107) mmol/L BUN (7-17) mg/dL Creatinine (0.52-1.04) mg/dL Glucose (74-99) mg/dL POC Glucose (mg/dL) 112 H 151 H 170 H (75-99) mg/dL Calcium (8.4-10.2) mg/dL 11/03/18 11/03/18 11/03/18 Range/Units 02:02 04:19 05:00 WBC (3.8-10.6) k/uL RBC (3.80-5.40) m/uL Hgb (11.4-16.0) gm/dL Hct (34.0-46.0) % ABG pCO2 47 H (35-45) mmHg ABG pO2 61 L (83-108) mmHg ABG HCO3 30 H (21-25) mmol/L ABG Total CO2 31 H (19-24) mmol/L ABG O2 Saturation 90.2 L (94-97) % Chloride (98-107) mmol/L BUN (7-17) mg/dL Creatinine (0.52-1.04) mg/dL Glucose (74-99) mg/dL POC Glucose (mg/dL) 206 H 186 H (75-99) mg/dL Calcium (8.4-10.2) mg/dL 11/03/18 11/03/18 11/03/18 Range/Units 05:06 05:06 05:48 WBC 16.7 H (3.8-10.6) k/uL RBC 3.22 L (3.80-5.40) m/uL Hgb 9.7 L (11.4-16.0) gm/dL Hct 28.7 L (34.0-46.0) % ABG pCO2 (35-45) mmHg ABG pO2 (83-108) mmHg ABG HCO3 (21-25) mmol/L ABG Total CO2 (19-24) mmol/L ABG O2 Saturation (94-97) % Chloride 110 H (98-107) mmol/L BUN 61 H (7-17) mg/dL Creatinine 1.08 H (0.52-1.04) mg/dL Glucose 200 H (74-99) mg/dL POC Glucose (mg/dL) 189 H (75-99) mg/dL Calcium 8.3 L (8.4-10.2) mg/dL 11/03/18 11/03/18 11/03/18 Range/Units 08:01 09:49 11:57 WBC (3.8-10.6) k/uL RBC (3.80-5.40) m/uL Hgb (11.4-16.0) gm/dL Hct (34.0-46.0) % ABG pCO2 (35-45) mmHg ABG pO2 (83-108) mmHg ABG HCO3 (21-25) mmol/L ABG Total CO2 (19-24) mmol/L ABG O2 Saturation (94-97) % Chloride (98-107) mmol/L BUN (7-17) mg/dL Creatinine (0.52-1.04) mg/dL Glucose (74-99) mg/dL POC Glucose (mg/dL) 144 H 113 H 203 H (75-99) mg/dL Calcium (8.4-10.2) mg/dL 11/03/18 Range/Units 12:18 WBC (3.8-10.6) k/uL RBC (3.80-5.40) m/uL Hgb (11.4-16.0) gm/dL Hct (34.0-46.0) % ABG pCO2 (35-45) mmHg ABG pO2 (83-108) mmHg ABG HCO3 (21-25) mmol/L ABG Total CO2 (19-24) mmol/L ABG O2 Saturation (94-97) % Chloride (98-107) mmol/L BUN (7-17) mg/dL Creatinine (0.52-1.04) mg/dL Glucose (74-99) mg/dL POC Glucose (mg/dL) 211 H (75-99) mg/dL Calcium (8.4-10.2) mg/dL Assessment and Plan Assessment: acute hypoxemic hypercapnic respiratory failure requiring intubation initially and then requiring tracheostomy and PEG tube placement for failure to wean - Sepsis and pneumonia - Hypertension improved - Diverticulitis - Small right-sided pleural effusion Plan - We'll continue to monitor the patient in neurological status - If the patient's status does not improve vision might need neurology consult and may require computed tomography scan of the head - We'll continue to recommendations and management - Continue rest of medical care - We'll follow for the patient 11/01/2018 Patient still not responding Might need CT head without contrast and neurology recommendations Continue rest of the medical care We'll need rehab placement eventually 11/02/2018 - Discussed the case with ICU. We will order for computed tomography scan of the head and consult neurology to assess her mental status. Patient might be encephalopathy because of she was on sedation for a long time but any to make sure there is no acute pathology going on. - Continue rest of the medical care - We will follow the patient - We will need LTAC but she was denied by the insurance. 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 11/03/2018 - The social media executive was able to get insurance approval for her LTAC - ICU working on further weaning her down - Appreciate neurology recommendations. Looks like her encephalopathy is metabolic and slowly improving. - Patient will probably go to LTAC tomorrow - We'll continue to follow the patient up
--- NOTE | 2018-11-03 14:57 | US ---
EXAMINATION TYPE: US venous doppler duplex UE RT DATE OF EXAM: 11/03/2018 COMPARISON: NONE CLINICAL HISTORY: r/o dvt. Right arm swelling SIDE PERFORMED: Right Unable to visualize vessels from mid upper arm down to antecubital fossa due to bandage from picc l ine Right Arm: Positive for DVT right axillary, positive for SVT right basilic IMPRESSION: There is deep venous thrombosis in the axillary vein. There is venous flow demonstrated in the brachi al and subclavian veins.
[2018-11-03 15:54] LABS: Glucose,Whole Blood 169 mg/dL (75-99)
[2018-11-03 17:59] LABS: Glucose,Whole Blood 113 mg/dL (75-99)
[2018-11-03 21:02] LABS: Glucose,Whole Blood 195 mg/dL (75-99)
[2018-11-03] MEDS: SERTRALINE 50 MG TAB PO SCH (21:31)
[2018-11-03] MEDS: MONTELUKAST 10 MG TAB PO SCH (21:31)
[2018-11-03] MEDS: ATORVASTATIN 40 MG TAB PO SCH (21:31)
[2018-11-04] LABS: Glucose,Whole Blood 165 mg/dL (75-99)
[2018-11-04 02:12] LABS: Glucose,Whole Blood 147 mg/dL (75-99)
[2018-11-04] MEDS: HYDROmorphone 1 MG/ML 1 ML SYRINGE IVP PRN ×3 (03:17→13:34)
[2018-11-04] MEDS: IPRATROPIUM-ALBUTEROL 3 ML NEB INHALATION SCH ×3 (03:26→11:31)
[2018-11-04 04:05] LABS: Glucose,Whole Blood 144 mg/dL (75-99)
[2018-11-04 05:04] LABS: ABG Base Excess 5.4 mmol/L; ABG HCO3 30 mmol/L (21-25); ABG Oxygen Saturation 96.2 % (94-97); ABG PCO2 50 mmHg (35-45); ABG PH 7.39 (7.35-7.45); ABG PO2 90 mmHg (83-108); ABG TCO2 32 mmol/L (19-24); Allen Test Performed? Yes
[2018-11-04 05:56] LABS: HCT 28.6 % (34.0-46.0); HGB 9.1 gm/dL (11.4-16.0); Hypochromasia Moderate; MCHC 31.8 g/dL (31.0-37.0); MCV 91.2 fL (80.0-100.0); Mean Platelet Volume 8.9; Platelet Count 226 k/uL (150-450); RBC 3.13 m/uL (3.80-5.40); WBC 14.7 k/uL (3.8-10.6)
[2018-11-04 06:11] LABS: Glucose,Whole Blood 156 mg/dL (75-99)
[2018-11-04 06:15] LABS: Calcium 8.3 mg/dL (8.4-10.2); Potassium 4.5 mmol/L (3.5-5.1)
[2018-11-04 08:07] LABS: Glucose,Whole Blood 135 mg/dL (75-99)
[2018-11-04] MEDS: predniSONE 20 MG TAB PO SCH (08:29)
[2018-11-04] MEDS: AMIODARONE 200 MG TAB PO SCH (08:29)
[2018-11-04] MEDS: CHLORHEXIDINE GLUCONATE 15 ML CUP MUCOUS MEM SCH (08:29)
[2018-11-04] MEDS: PANTOPRAZOLE 40 MG/10 ML VIAL IVP SCH (08:29)
[2018-11-04] MEDS: MAGNESIUM OXIDE 400 MG TAB PO SCH (08:29)
[2018-11-04] MEDS: APIXABAN 5 MG TAB PO SCH (08:29)
[2018-11-04] MEDS: amLODIPine 5 MG TAB PO SCH (08:30)
[2018-11-04] MEDS: METOPROLOL TARTRATE 25 MG TAB PO SCH (08:30)
[2018-11-04] MEDS: BUDESONIDE 1 MG/2 ML NEBU INHALATION SCH (08:34)
[2018-11-04] MEDS: FORMOTEROL FUMARATE 20 MCG/2 ML NEBU INHALATION SCH (08:34)
--- NOTE | 2018-11-04 08:41 | XR ---
EXAMINATION TYPE: XR chest 1V portable DATE OF EXAM: 11/04/2018 COMPARISON: 11/03/2018 HISTORY: Shortness of breath TECHNIQUE: Single frontal view of the chest is obtained. FINDINGS: There are bilateral pleural effusions with cardiomegaly and bibasilar infiltrate. There is a diffuse interstitial pattern. Tracheostomy tube and PICC line noted. Biapical pleural thickening. Linear density overlying the left upper lobe may be superficial to the patient. Correlate clinically. Underlying COPD suspected. IMPRESSION: 1. Stable bilateral consolidation and pleural effusion correlate for pneumonia. Otherwise consider CH F.
--- NOTE | 2018-11-04 09:04 | PN ---
PROGRESS NOTE Mrs. Cota is 58-year-old female who presented with respiratory failure and pneumonia requiring mechanical ventilation. She had episode of paroxysmal atrial fibrillation. She remains intubated. She is more awake following command. She continued to be in sinus mechanism. She has a tracheostomy and PEG tube and she is being evaluated to be transferred to special care hospital care for weaning plan. Hemodynamically, she is stable. There is no evidence of cough malignant arrhythmia. She is severely weak with evidence of critical illness polyneuropathy and myopathy. She continues to be at this time on amiodarone 200 mg twice a day, amlodipine 5 mg twice a day, Eliquis 5 mg twice a day, Lipitor 40 mg daily, metoprolol tartrate 25 mg 3 times a day. PHYSICAL EXAMINATION: Blood pressure 120/60 with a heart rate in the 60s. LUNGS: Clear anteriorly. HEART: Regular rate an rhythm,. S1, S2. No S3. No rub or gallop appreciated. ABDOMEN: Soft, nontender. Positive bowel sounds, no organomegaly. EXTREMITIES: No significant edema. LAB DATA: She had a duplex scan of the upper extremity revealed right arm DVT in the axillary vein. Her BUN creatinine 53 and 0.95, potassium 4.5, hemoglobin 9.1. IMPRESSION: 1. Respiratory failure with pneumonia. Continues to be intubated with the tracheostomy, more awake and stable. 2. Paroxysmal atrial fibrillation, remains in sinus mechanism. 3. Status post tracheostomy and PEG tube placement. 4. Diabetes mellitus. 5. Deep vein thrombosis of the axillary vein. RECOMMENDATION: From the cardiac standpoint, will continue present therapy, continue on anticoagulation. I would expect she will be transferred to [facility] care. The amiodarone dose can be decreased in 5 days to 200 mg once a day, and depending on her rhythm, further recommendation will be made afterward. MMODL / IJN: [id number] /
[2018-11-04 10:11] LABS: Glucose,Whole Blood 183 mg/dL (75-99)
--- NOTE | 2018-11-04 10:30 | P.PN ---
Subjective Progress Note Date: 11/04/18 Principal diagnosis: Metabolic encephalopathy Even more awake and interactive today per . Ready to go to [facility]. No new neuro c/o. Objective - Vital Signs Vital signs: Vital Signs Temp 98.5 F 11/04/18 08:00 Pulse 71 11/04/18 10:00 Resp 16 11/04/18 10:00 BP 152/74 11/04/18 10:00 Pulse Ox 94 L 11/04/18 10:00 Intake & Output 11/03/18 11/04/18 11/04/18 18:59 06:59 18:59 Intake Total 1891.548 667.335 558.534 Output Total 1515 1800 560 Balance 376.548 -1132.665 -1.466 Weight 86.6 kg Intake: IV 240 220 60 0.9NS 240 220 60 Intake, IV Titration 43.548 79.335 18.534 Amount Insulin Regular 100 unit 43.548 79.335 18.534 In Sodium Chloride 0.9% 100 ml @ Per Protocol IV .Q0M [facility] Rx#:[id number] Tube Feeding 1008 168 280 Other 600 200 200 Output: Urine 1515 1650 560 Stool 150 Other: Voiding Method Indwelling Catheter Indwelling Catheter Indwelling Catheter ABP, PAP, CO, CI - Last Documented Arterial Blood Pressure 109/60 - Exam MS GCS [id number] Regards examiner and family. Able to open and close eyes on command CN PERRL Blinks to threat bilaterally Resists Doll's maneuver +Corneal's +Grimace to nostril stim bilaterally +Gag Motor Normal bulk/tone No tremors, asterixis, myoclonus or other adventitious movements Little spontaneous motor movements Sens W/D to nailbed stim x4 No obvious neglect Coord No apparent ocular dysmetria as she tracks examiner DTRs 1+/4 sym throughout Toes mute bilaterally No ankle clonus Gait Cannot test due to debility - Labs CBC & Chem 7: 11/04/18 05:29 11/04/18 05:29 Labs: Abnormal Lab Results - Last 24 Hours (Table) 11/03/18 11/03/18 11/03/18 Range/Units 09:49 11:57 12:18 WBC (3.8-10.6) k/uL RBC (3.80-5.40) m/uL Hgb (11.4-16.0) gm/dL Hct (34.0-46.0) % ABG pCO2 (35-45) mmHg ABG HCO3 (21-25) mmol/L ABG Total CO2 (19-24) mmol/L Chloride (98-107) mmol/L BUN (7-17) mg/dL Glucose (74-99) mg/dL POC Glucose (mg/dL) 113 H 203 H 211 H (75-99) mg/dL Calcium (8.4-10.2) mg/dL 11/03/18 11/03/18 11/03/18 Range/Units 15:27 17:55 20:36 WBC (3.8-10.6) k/uL RBC (3.80-5.40) m/uL Hgb (11.4-16.0) gm/dL Hct (34.0-46.0) % ABG pCO2 (35-45) mmHg ABG HCO3 (21-25) mmol/L ABG Total CO2 (19-24) mmol/L Chloride (98-107) mmol/L BUN (7-17) mg/dL Glucose (74-99) mg/dL POC Glucose (mg/dL) 169 H 113 H 195 H (75-99) mg/dL Calcium (8.4-10.2) mg/dL 11/03/18 11/04/18 11/04/18 Range/Units 23:57 01:58 04:02 WBC (3.8-10.6) k/uL RBC (3.80-5.40) m/uL Hgb (11.4-16.0) gm/dL Hct (34.0-46.0) % ABG pCO2 (35-45) mmHg ABG HCO3 (21-25) mmol/L ABG Total CO2 (19-24) mmol/L Chloride (98-107) mmol/L BUN (7-17) mg/dL Glucose (74-99) mg/dL POC Glucose (mg/dL) 165 H 147 H 144 H (75-99) mg/dL Calcium (8.4-10.2) mg/dL 11/04/18 11/04/18 11/04/18 Range/Units 05:00 05:29 05:29 WBC 14.7 H (3.8-10.6) k/uL RBC 3.13 L (3.80-5.40) m/uL Hgb 9.1 L (11.4-16.0) gm/dL Hct 28.6 L (34.0-46.0) % ABG pCO2 50 H (35-45) mmHg ABG HCO3 30 H (21-25) mmol/L ABG Total CO2 32 H (19-24) mmol/L Chloride 109 H (98-107) mmol/L BUN 53 H (7-17) mg/dL Glucose 139 H (74-99) mg/dL POC Glucose (mg/dL) (75-99) mg/dL Calcium 8.3 L (8.4-10.2) mg/dL 11/04/18 11/04/18 11/04/18 Range/Units 06:08 08:05 09:57 WBC (3.8-10.6) k/uL RBC (3.80-5.40) m/uL Hgb (11.4-16.0) gm/dL Hct (34.0-46.0) % ABG pCO2 (35-45) mmHg ABG HCO3 (21-25) mmol/L ABG Total CO2 (19-24) mmol/L Chloride (98-107) mmol/L BUN (7-17) mg/dL Glucose (74-99) mg/dL POC Glucose (mg/dL) 156 H 135 H 183 H (75-99) mg/dL Calcium (8.4-10.2) mg/dL Assessment and Plan Assessment: AMS c/w metabolic encephalopathy. Neurologically improving. Plan: -EEG findings consistent with metabolic encephalopathy. -CT Head reviewed. No further neuroimaging as patient continues to improve. -Minimize seation to follow neuro exams. -d/w patient's at bedside in detail. All questions answered. -No further inpatient neuro recs at this time. Please call with new questions. Thank you again for this consultation. Time with Patient: Less than 30 (Time spent in direct patient care, greater than 50% of which was spent in [id number] counseling and coordination of care: 25 minutes.)
[2018-11-04 11:14] VITALS: BMI 33.8
--- NOTE | 2018-11-04 11:29 | P.DS ---
Providers Date of admission: 10/14/18 03:33 Expected date of discharge: 11/04/18 Attending physician: Delbert Walker Consults: 10/15/18 14:59 Consult Physician Urgent Consulting Provider: Vinny Juares Consult Reason/Comments: pneumonia persistant fevers Do you want consulting provider notified?: Yes 10/15/18 17:39 Consult Physician Routine Consulting Provider: Seferino Madden Consult Reason/Comments: Prox A Fib Do you want consulting provider notified?: Yes 10/16/18 16:22 Consult Physician Urgent Consulting Provider: Emily Knowles Consult Reason/Comments: pneumonia Do you want consulting provider notified?: Yes 10/19/18 11:12 Consult Physician Urgent Consulting Provider: Ronald Anderson Consult Reason/Comments: increasing creatinine Do you want consulting provider notified?: Yes 10/26/18 08:24 Consult Physician Routine Consulting Provider: Jan Fung Consult Reason/Comments: tracheostomy and peg tube placement Do you want consulting provider notified?: Yes 11/02/18 09:59 Consult Physician Urgent Consulting Provider: Kermit Grace Consult Reason/Comments: alt mntal status Do you want consulting provider notified?: Yes Primary care physician: Lore Combs Hospital Course: Discharge diagnosis - acute hypoxemic hypercapnic respiratory failure requiring intubation initially and then requiring tracheostomy and PEG tube placement for failure to wean - Sepsis and pneumonia - DVT of his right upper extremity patient already on eliquis - History of atrial fibrillation. On amiodarone and eliquis - Hypertension improved - Diverticulosis - COPD, - Diabetes mellitus - Small right-sided pleural effusion Hospital course This very pleasant 58-year-old female who had a long hospital stay. She was initially admitted for sepsis and pneumonia. She developed acute hypoxic respiratory failure and was intubated and put on mechanical ventilation. She had multiple trials of weaning but she failed to wean. She eventually had a tracheostomy and a PEG tube placed on 10/28/2018. After the trach and PEG were placed patient was tried off of the sedation. Initially she was really slow to respond but eventually she started responding. She finished a course of antibiotics. She was continued on breathing treatments and prednisone taper orally. On 11/02/2018 Patient was opening her eyes and smiling. She was moving her upper and lower extremities more today. She is happy that she is been discharged from the ICU and going to select On exam, patient today responding to commands opening her eyes and smiling HEENT: Conjunctivae normal. eyes normal. NECK: No JVD. No thyroid enlargement. No LNs she has a trach CARDIOVASCULAR: S1-S2 positive RESPIRATION: Breath sounds diminished in the bases. No rhonchi or crackles. No bronchial breathing. ABDOMEN: Soft, nontender . No guarding. no masses palpable. No ascites, No hepatosplenomegaly.Bowel sounds heard. She has a PEG LEGS: No edema. no swelling NERVOUS SYSTEM: Patient now starting to respond to her when he calls her name. She is tracking him and responding to his commands and obeying his commands. Patient will be discharged to long-term acute care facility Patient will be continued on eliquis. Eliquis was held for a few days for tracheostomy and PEG tube placement. It was restarted again. ultrasound of the right approximately was done which showed DVT of the axillary vein. No interventions were done as the patient is oriented and requests Patient was recommended to continue amiodarone 200mg twice a day for 5 days and then changed to 200 mg daily after 5 days. Patient will be discharged when cleared by pulmonology and cardiology Patient Condition at Discharge: Fair Plan - Discharge Summary Discharge Rx Participant: Yes New Discharge Prescriptions: New Apixaban [Eliquis] 5 mg PO BID #60 tab Amiodarone [Cordarone] 200 mg PO DAILY #30 tab Ipratropium-Albuterol Nebulize [Duoneb 0.5 mg-3 mg/3 ml Soln] 3 ml INHALATION RT-Q4H #90 ampul.neb Metoprolol Tartrate [Lopressor] 25 mg PO TID #90 tab Magnesium Oxide [Mag-Ox] 400 mg PO DAILY #30 tab Formoterol Fumarate [Perforomist] 20 mcg INHALATION RT-BID #30 nebu predniSONE 20 mg PO DAILY #10 tab Continue Montelukast [Singulair] 10 mg PO HS Sertraline [Zoloft] 50 mg PO HS Omeprazole 20 mg PO DAILY sitaGLIPtin [Januvia] 50 mg PO DAILY metFORMIN HCL 500 mg PO BID Atorvastatin [Lipitor] 40 mg PO HS Budesonide/Formoterol Fumarate [Symbicort 80-4.5 Mcg Inhaler] 1 puff INHALATION RT-BID Albuterol Nebulized [Ventolin Nebulized] 2.5 mg INHALATION RT-QID Insulin Detemir (Levemir) [Levemir] 40 unit SQ HS Insulin Aspart [NovoLOG] 10 units SQ AC-TID Discontinued predniSONE 5 mg PO DAILY Lisinopril 20 mg PO DAILY Discharge Medication List Albuterol Nebulized [Ventolin Nebulized] 2.5 mg INHALATION RT-QID 10/14/18 [History] Atorvastatin [Lipitor] 40 mg PO HS 10/14/18 [History] Budesonide/Formoterol Fumarate [Symbicort 80-4.5 Mcg Inhaler] 1 puff INHALATION RT-BID 10/14/18 [History] Insulin Aspart [NovoLOG] 10 units SQ AC-TID 10/14/18 [History] Insulin Detemir (Levemir) [Levemir] 40 unit SQ HS 10/14/18 [History] Montelukast [Singulair] 10 mg PO HS 10/14/18 [History] Omeprazole 20 mg PO DAILY 10/14/18 [History] Sertraline [Zoloft] 50 mg PO HS 10/14/18 [History] metFORMIN HCL 500 mg PO BID 10/14/18 [History] sitaGLIPtin [Januvia] 50 mg PO DAILY 10/14/18 [History] Apixaban [Eliquis] 5 mg PO BID #60 tab 10/19/18 [Rx] Amiodarone [Cordarone] 200 mg PO DAILY #30 tab 11/04/18 [Rx] Formoterol Fumarate [Perforomist] 20 mcg INHALATION RT-BID #30 nebu 11/04/18 [Rx] Ipratropium-Albuterol Nebulize [Duoneb 0.5 mg-3 mg/3 ml Soln] 3 ml INHALATION RT-Q4H #90 ampul.neb 11/04/18 [Rx] Magnesium Oxide [Mag-Ox] 400 mg PO DAILY #30 tab 11/04/18 [Rx] Metoprolol Tartrate [Lopressor] 25 mg PO TID #90 tab 11/04/18 [Rx] predniSONE 20 mg PO DAILY #10 tab 11/04/18 [Rx] Follow up Appointment(s)/Referral(s): Lore Combs, [Primary Care Provider] - 1-2 days
[2018-11-04 12:11] LABS: Glucose,Whole Blood 188 mg/dL (75-99)
[2018-11-04] MEDS: CLEVIDIPINE BUTYRATE 25 MG in EMPTY BAG 1 BAG IV SCH (12:14)
[2018-11-04 12:21] VITALS: TEMP 98.8
[2018-11-04 14:14] LABS: Glucose,Whole Blood 136 mg/dL (75-99)
[2018-11-04 14:29] VITALS: BP 105/72; PULSE 60; RESP 16
--- NOTE | 2018-11-04 15:17 | P.PN ---
Subjective Progress Note Date: 11/04/18 On 11/01/2018, the patient is being seen for a follow-up. The patient is still off sedation. Unfortunately she has not fully recovered in terms of her mentation. She is gradually opening up her eyes and she grimaces to painful stimulation. Nevertheless, she has not following any simple commands this point in time. She shakes and moves her legs. Her neurologic exam is nonfocal. Pupils are equal and reactive to light. No facial asymmetry. No focal neurological deficit at this point in time. The patient is afebrile. The patient's hemodynamically stable. The patient is a tracheostomy tube in place. The patient remains on a assist-control mode of ventilation with a tidal volume 500 with a rate of 22 of and an FiO2 of 40% with a PEEP of 10. The morning blood gases showed a pH of 7.43 with a pCO2 of 42 and pO2 of 86. This was on FiO2 of 40%. Meanwhile, the patient is still on enteral feeding for nutritional support. The patient is on vital high protein at the rate of 56 mL an hour. The patient is producing adequate amount of urine output. The patient's that fluid balance over the past 24 hours has been in the order of negative balance - 362 mL. The patient is on a maintenance fluid of 20 mL of hour of 0.9 normal saline. She is afebrile. She has some edema in all 4 extremities pressure in the lower extremities. Her urine output is adequate and order of 1-50 mL an hour and the patient is currently being diuresis with Lasix 40 mg IV every 12 hours. She is on IV Protonix. She is on DuoNeb nebulized treatments around the clock. She is on IV Solu-Medrol. She is on oral amiodarone and her rhythm is currently sinus. Her blood pressure is under good control as the patient is taking Norvasc 5 mg by mouth twice a day and she is currently off Cleviprex. She is also on metoprolol 25 mg by mouth twice a day. On 11/02/2018, I'm seeing this patient for a follow-up. The patient is more awake compared to yesterday. I will say that she is still encephalopathic. N evertheless she is able to follow some simple orders. She was able to blink her eyes upon demand and she was able to stick out her tongue upon demand. She is moving her lower extremities more than the upper extremities. Despite her some limited improvement, I'm going to undergo a neurologic workup. I'm going to consult neurology regarding this ongoing encephalopathy. I'm also going to order a CAT scan of the brain. She is afebrile. She is on a mechanical ventilator and today she was switched VC plus mode. She is currently on FiO2 of 40% with a PEEP of 6. The blood gases showed a pH of 7.46 with a pCO2 of 41 pO2 of 83. White cell count at 13.1. Hemoglobin was at 9.8. She is afebrile. Chest x-ray showing chronic and limited infiltration of the lung bases bilaterally. Sodium level is at 142. The patient is receiving enteral feeding for nutritional support via a PEG tube. The tracheostomy site is dry clean and intact. He was dynamically stable. Blood pressure is stable.. The patient is on oral amiodarone and overnight the patient had a run of atrial fibrillation. She is having paroxysmal atrial fibrillation and the patient will be started back on anticoagulation with Eliquis 5 mg by mouth twice a day. No other significant events otherwise for now. The patient is currently off propofol. The patient remains on IV Solu-Medrol. She is on broncho-dilators on the current and she has completed antibiotic course. On 11/03/2018 and seeing this patient for a follow-up. The patient is awake. The patient is more interactive on today's evaluation. She is profoundly weak. She has had significant critical illness polyneuropathy and myopathy. She is undergoing daily physical therapy. The plan is to send this patient for [facility] by tomorrow. Meanwhile, she is on a pressure support of 5 and a PEEP of 5 and she is tolerating the setting without any major difficulties and she is generating enough tidal volumes. The chest x-ray shows stable findings. Blood gases from today showed a pH of 7.41 with a pCO2 of 47 and pO2 of 61. Chest x- ray shows no significant acute abnormalities. The patient is receiving enteral feeding. PEG tube. Hemodynamically stable. No nausea. No vomiting. No emesis. There is some ongoing liquidy bowel movements/diarrhea he had the cardiac rhythm is sinus. The patient started on Eliquis. On 11/04/2018, I'm seeing this patient for a follow-up. The patient is doing very well. The patient is more alert and awake and she's able to move her legs and some of her shoulders and arms and obviously the motor function has somewhat improved compared to yesterday. She is following commands and answering simple questions appropriately. No signs of respiratory distress as the patient is currently on a pressure support of 5 and a PEEP of 5. I noted some swelling in the right upper extremity. Further analysis with Doppler showed that the patient a clot in his right upper extremity. He is already on Eliquis. The PICC line was removed and the patient was given a peripheral line. She is tolerating the CPAP trial without any major difficulties. No cough or sputum production or chest that is so wheezing. No fever or chills. No hypotension. The patient's white cell count of 14.7. The blood gases from today shows a pH of 7.39 with a pCO2 of 50 and pO2 of 90 and this was on a pressure support of 5 and a PEEP of 5 with an FiO2 of 40%. Tolerating enteral feeding for nutritional support via a PEG tube. No abdominal distention. She is stooling. The plan is to transfer this patient to [facility] specialty today. Objective - Vital Signs Vital signs: Vital Signs Temp 98.8 F 11/04/18 12:00 Pulse 60 11/04/18 14:00 Resp 16 11/04/18 14:00 BP 105/72 11/04/18 14:00 Pulse Ox 95 11/04/18 14:00 Intake & Output 11/03/18 11/04/18 11/04/18 18:59 06:59 18:59 Intake Total 1891.548 311.435 9332.997 Output Total 1515 1800 1075 Balance 376.548 -1132.665 176.997 Weight 86.6 kg 86.6 kg Intake: IV 240 220 140 0.9NS 240 220 140 Intake, IV Titration 43.548 79.335 39.997 Amount Insulin Regular 100 unit 43.548 79.335 39.997 In Sodium Chloride 0.9% 100 ml @ Per Protocol IV .Q0M [facility] Rx#:[id number] Tube Feeding 1008 168 672 Other 600 200 400 Output: Urine 1515 1650 1075 Stool 150 Other: Voiding Method Indwelling Catheter Indwelling Catheter Indwelling Catheter ABP, PAP, CO, CI - Last Documented Arterial Blood Pressure 109/60 - Exam Gen. appearance, comfortable likely distress. . She has a tracheostomy tube in place. Currently the patient is a pressure support of 5 and a PEEP of 5. Head exam was generally normal. There was no scleral icterus or corneal arcus. Mucous membranes were moist. Neck is supple. The patient is a tracheostomy tube in place. No adenopathy. No thyromegaly. No other abnormalities noted. No leaks on the tracheostomy tube. Lung sounds are diminished specially in the right lung base. There is also some crackles and scattered rhonchi heard bilaterally. Cardiac exam revealed the PMI to be normally situated and sized. The rhythm was regular and no extrasystoles were noted during several minutes of auscultation. The first and second heart sounds were normal and physiologic splitting of the second heart sound was noted. There were no murmurs, rubs, clicks, or gallops. Abdominal exam revealed normal bowel sounds. The abdomen was soft, non-tender, and without masses, organomegaly, or appreciable enlargement of the abdominal aorta. Patient has a PEG tube in place. Examination of the extremities revealed easily palpable radial, femoral and pedal pulses. There was no cyanosis, clubbing or his increased edema in all 4 extremities more so on the right upper extremity. The patient is a PICC line in the right upper extremity. Examination of the skin revealed no evidence of significant rashes, suspicious appearing nevi or other concerning lesions. Neurologically the patient is awake and following simple commands. Profound motor weakness both in the upper and lower extremities. - Labs CBC & Chem 7: 11/04/18 05:29 11/04/18 05:29 Labs: Abnormal Lab Results - Last 24 Hours (Table) 11/03/18 11/03/18 11/03/18 Range/Units 15:27 17:55 20:36 WBC (3.8-10.6) k/uL RBC (3.80-5.40) m/uL Hgb (11.4-16.0) gm/dL Hct (34.0-46.0) % ABG pCO2 (35-45) mmHg ABG HCO3 (21-25) mmol/L ABG Total CO2 (19-24) mmol/L Chloride (98-107) mmol/L BUN (7-17) mg/dL Glucose (74-99) mg/dL POC Glucose (mg/dL) 169 H 113 H 195 H (75-99) mg/dL Calcium (8.4-10.2) mg/dL 11/03/18 11/04/18 11/04/18 Range/Units 23:57 01:58 04:02 WBC (3.8-10.6) k/uL RBC (3.80-5.40) m/uL Hgb (11.4-16.0) gm/dL Hct (34.0-46.0) % ABG pCO2 (35-45) mmHg ABG HCO3 (21-25) mmol/L ABG Total CO2 (19-24) mmol/L Chloride (98-107) mmol/L BUN (7-17) mg/dL Glucose (74-99) mg/dL POC Glucose (mg/dL) 165 H 147 H 144 H (75-99) mg/dL Calcium (8.4-10.2) mg/dL 11/04/18 11/04/18 11/04/18 Range/Units 05:00 05:29 05:29 WBC 14.7 H (3.8-10.6) k/uL RBC 3.13 L (3.80-5.40) m/uL Hgb 9.1 L (11.4-16.0) gm/dL Hct 28.6 L (34.0-46.0) % ABG pCO2 50 H (35-45) mmHg ABG HCO3 30 H (21-25) mmol/L ABG Total CO2 32 H (19-24) mmol/L Chloride 109 H (98-107) mmol/L BUN 53 H (7-17) mg/dL Glucose 139 H (74-99) mg/dL POC Glucose (mg/dL) (75-99) mg/dL Calcium 8.3 L (8.4-10.2) mg/dL 11/04/18 11/04/18 11/04/18 Range/Units 06:08 08:05 09:57 WBC (3.8-10.6) k/uL RBC (3.80-5.40) m/uL Hgb (11.4-16.0) gm/dL Hct (34.0-46.0) % ABG pCO2 (35-45) mmHg ABG HCO3 (21-25) mmol/L ABG Total CO2 (19-24) mmol/L Chloride (98-107) mmol/L BUN (7-17) mg/dL Glucose (74-99) mg/dL POC Glucose (mg/dL) 156 H 135 H 183 H (75-99) mg/dL Calcium (8.4-10.2) mg/dL 11/04/18 11/04/18 Range/Units 12:08 14:11 WBC (3.8-10.6) k/uL RBC (3.80-5.40) m/uL Hgb (11.4-16.0) gm/dL Hct (34.0-46.0) % ABG pCO2 (35-45) mmHg ABG HCO3 (21-25) mmol/L ABG Total CO2 (19-24) mmol/L Chloride (98-107) mmol/L BUN (7-17) mg/dL Glucose (74-99) mg/dL POC Glucose (mg/dL) 188 H 136 H (75-99) mg/dL Calcium (8.4-10.2) mg/dL Assessment and Plan Plan: Impression 1 acute hypoxic respiratory failure secondary to right lower lobe pneumonia. The patient had prolonged ventilator dependent respiratory failure and the patient is currently post tracheostomy tube insertion. The patient is post prolonged intubation mechanical ventilation and ultimately she required tracheostomy tube insertion as part of her weaning process. She is currently down to a PEEP of 5 with an FiO2 of 40%. Blood gases was noted and the patient is adequate oxygenation. No significant signs of bronchospasm or wheezing. She is recovering from her pneumonia. On today's evaluation the patient was switched upper support of 5 and PEEP of 5 and the patient is able to tolerate this setting without any major difficulties. Overall pulmonary status is stable for now. On today's evaluation the patient has remained on CPAP/pressure support for the past 24 hours. No signs of any respiratory distress. Blood gases was noted. There is a component of chronic hypercapnic respiratory failure. Is well compensated. The patient will be transferred to [facility] for further [facility] as the patient has developed significant neuromuscular motor weakness. 2 status post tracheostomy and PEG tube insertion for prolonged ventilator dependent respiratory failure. Surgery was done on 10/28/2018 3 suspect secondary to pneumonia, improving, and the patient is currently off antibiotics and the pro-calcitonin level is at 0.16. 4 hypotension secondary to sepsis, resolved 5 diabetes mellitus type 2 6 COPD 7 asthma 8 history of diverticulosis 9 hypertension 10 atrial fibrillation currently back into normal sinus rhythm. Rate is contr olled and the patient is currently on amiodarone. Eliquis also started as long- term anticoagulation. 11 metabolic encephalopathy, improved and the patient is awake and alert and following simple commands. 12 motor weakness both in upper and lower extremities 13 edema in the upper and lower extremities bilaterally more so on the right upper extremity. Plan We'll continue vent support. Continue enteral feeding for nutritional support. Prednisone burst taper. Aggressive physical therapy. Transfer this patient to [facility] specialty for further rehabilitation and weaning. Discussed the case with him. No issues for now. We'll continue to follow. Care evaluation that was done in more than 30 minutes. Time with Patient: Greater than 30
== END 2018-11-04 14:50 | DRG 4 ==
LOC: SUPCPDRO 23:34 → EC 23:34 → 3SCARD 10-14 03:33 → 2SICU 10-16 17:28
PROVIDERS: ADMIT Hospitalist; ATTEND Hospitalist
PROC: 5A1955Z Respiratory Ventilation, Greater than 96 Consecutive Hours (ICD-10-PCS; 2018-10-20)
PROC: 0BH17EZ Insertion of Endotracheal Airway into Trachea, Via Natural or Artificial Opening (ICD-10-PCS; 2018-10-20)
PROC: 0B9F8ZX Drainage of Right Lower Lung Lobe, Via Natural or Artificial Opening Endoscopic, Diagnostic (ICD-10-PCS; 2018-10-21)
PROC: 03HY32Z Insertion of Monitoring Device into Upper Artery, Percutaneous Approach (ICD-10-PCS; 2018-10-28)
PROC: 0B110F4 Bypass Trachea to Cutaneous with Tracheostomy Device, Open Approach (ICD-10-PCS; principal; 2018-10-28 08:25)
PROC: 3E0G76Z Introduction of Nutritional Substance into Upper GI, Via Natural or Artificial Opening (ICD-10-PCS; principal; 2018-10-28 08:25)
PROC: 0DH68UZ Insertion of Feeding Device into Stomach, Via Natural or Artificial Opening Endoscopic (ICD-10-PCS; principal; 2018-10-28 08:25)
PROC: 5A09457 Assistance with Respiratory Ventilation, 24-96 Consecutive Hours, Continuous Positive Airway Pressure (ICD-10-PCS; 2018-11-02)
DX: A41.9 Sepsis, unspecified organism (principal); G92 Toxic encephalopathy; N17.0 Acute kidney failure with tubular necrosis; J18.9 Pneumonia, unspecified organism; R65.21 Severe sepsis with septic shock; J96.02 Acute respiratory failure with hypercapnia; J96.21 Acute and chronic respiratory failure with hypoxia; J96.22 Acute and chronic respiratory failure with hypercapnia; I82.621 Acute embolism and thrombosis of deep veins of right upper extremity; J44.0 Chronic obstructive pulmonary disease with (acute) lower respiratory infection; E87.1 Hypo-osmolality and hyponatremia; J98.11 Atelectasis; J90 Pleural effusion, not elsewhere classified; E87.2 Acidosis; E46 Unspecified protein-calorie malnutrition; E87.0 Hyperosmolality and hypernatremia; K57.92 Diverticulitis of intestine, part unspecified, without perforation or abscess without bleeding; Z99.11 Dependence on respirator [ventilator] status; F05 Delirium due to known physiological condition; G62.81 Critical illness polyneuropathy; G72.81 Critical illness myopathy; R65.20 Severe sepsis without septic shock; E11.9 Type 2 diabetes mellitus without complications; I48.0 Paroxysmal atrial fibrillation; E87.6 Hypokalemia; E83.42 Hypomagnesemia; E78.5 Hyperlipidemia, unspecified; I10 Essential (primary) hypertension; N14.1 Nephropathy induced by other drugs, medicaments and biological substances; T50.8X5A Adverse effect of diagnostic agents, initial encounter; E87.70 Fluid overload, unspecified; R31.9 Hematuria, unspecified; K57.90 Diverticulosis of intestine, part unspecified, without perforation or abscess without bleeding; B97.0 Adenovirus as the cause of diseases classified elsewhere; E86.1 Hypovolemia; J98.01 Acute bronchospasm; Z79.899 Other long term (current) drug therapy; Z79.4 Long term (current) use of insulin; Z79.84 Long term (current) use of oral hypoglycemic drugs; Z87.891 Personal history of nicotine dependence; Z79.51 Long term (current) use of inhaled steroids; Z79.01 Long term (current) use of anticoagulants
CPT/HCPCS: 31624; 36415; 36573; 36600; 43246; 70450; 71045; 71046; 71260; 76604; 80048; 80053; 80202; 81001; 82140; 82150; 82272; 82805; 83036; 83605; 83690; 83735; 83880; 84100; 84145; 85025; 85027; 85610; 85730; 86738; 87040; 87070; 87086; 87102; 87116; 87205; 87206; 87252; 87324; 87449; 87496; 87498; 87502; 87529; 87634; 87798; 88108; 88305; 89050; 93005; 93306; 94002; 94003; 94640; 94660; 94760; 95816; 96361; 96365; 96366; 96367; 96375; 99291

== ENCOUNTER → 2019-05-09 | Outpatient (CLI) | payer MEDICARE | END | disposition home or self-care (01) | LOC: LABWHC1 14:32 | PROVIDERS: ATTEND Internal Medicine Critical Care Medicine | DX: J45.909 Unspecified asthma, uncomplicated (principal) | CPT/HCPCS: 36415; 82785; 85008 ==

== ENCOUNTER 2021-01-07 16:34 | Emergency (ER) | payer MEDICARE ==
[2021-01-07] MEDS ORDERED: ALBUTEROL NEBULIZED 2.5 MG/3 ML INHALATION STA (17:21)
[2021-01-07] MEDS ORDERED: predniSONE 20 MG TAB PO STA (17:21)
[2021-01-07] MEDS ORDERED: IPRATROPIUM 0.5 MG/2.5 ML NEBU INHALATION STA (17:23)
[2021-01-07 17:28] VITALS: TEMP 98.2
--- NOTE | 2021-01-07 18:58 | ED ---
General Adult HPI - General Chief complaint: Shortness of Breath Stated complaint: Trouble Breathing Time Seen by Provider: 01/07/21 17:00 Source: patient, RN notes reviewed, old records reviewed Mode of arrival: ambulatory Limitations: no limitations - History of Present Illness Initial comments: This a 60-year-old female who presents emergency department with past history significant for asthma. Patient states she's been having difficult to breathing for a little over a week now. Patient states she is placed on steroids and she is done with those now but they did not seem to help that much. Patient states she only takes a couple breathing treatments a day. She is wheezing. Patient denies any chest pain palpitations. Patient denies any abdominal pain. Patient denies any fever chills or cough. Patient states she just had a more difficult time breathing. Patient states she was just a COVID test on Wednesday and it was negative. Patient denies any leg swelling or calf tenderness. - Related Data Home Medications Medication Instructions Recorded Confirmed Albuterol Nebulized [Ventolin 2.5 mg INHALATION RT-QID 10/14/18 10/14/18 Nebulized] Atorvastatin [Lipitor] 40 mg PO HS 10/14/18 10/14/18 Budesonide/Formoterol Fumarate 1 puff INHALATION RT-BID 10/14/18 10/14/18 [Symbicort 80-4.5 Mcg Inhaler] Insulin Aspart [NovoLOG] 10 units SQ AC-TID 10/14/18 10/14/18 Insulin Detemir (Levemir) [Levemir] 40 unit SQ HS 10/14/18 10/14/18 Montelukast [Singulair] 10 mg PO HS 10/14/18 10/14/18 Omeprazole 20 mg PO DAILY 10/14/18 10/14/18 Sertraline [Zoloft] 50 mg PO HS 10/14/18 10/14/18 metFORMIN HCL 500 mg PO BID 10/14/18 10/14/18 sitaGLIPtin [Januvia] 50 mg PO DAILY 10/14/18 10/14/18 Previous Rx's Medication Instructions Recorded Apixaban [Eliquis] 5 mg PO BID #60 tab 10/19/18 Amiodarone [Cordarone] 200 mg PO DAILY #30 tab 11/04/18 Formoterol Fumarate [Perforomist] 20 mcg INHALATION RT-BID #30 nebu 11/04/18 Ipratropium-Albuterol Nebulize 3 ml INHALATION RT-Q4H #90 11/04/18 [Duoneb 0.5 mg-3 mg/3 ml Soln] ampul.neb Magnesium Oxide [Mag-Ox] 400 mg PO DAILY #30 tab 11/04/18 Metoprolol Tartrate [Lopressor] 25 mg PO TID #90 tab 11/04/18 predniSONE [Deltasone] 20 mg PO DAILY #10 tab 11/04/18 Azithromycin [Zithromax Tri-Abhinav] 500 mg PO DAILY #3 tab 01/07/21 predniSONE [Deltasone] 40 mg PO DAILY #8 tab 01/07/21 Allergies Allergy/AdvReac Type Severity Reaction Status Date / Time No Known Allergies Allergy Verified 01/07/21 18:46 Review of Systems ROS Statement: Those systems with pertinent positive or pertinent negative responses have been documented in the HPI. ROS Other: All systems not noted in ROS Statement are negative. Past Medical History Past Medical History: Asthma, Diabetes Mellitus History of Any Multi-Drug Resistant Organisms: None Reported Past Surgical History: Unable to Obtain, Tubal Ligation Additional Past Surgical History / Comment(s): Bilateral thumbs Past Anesthesia/Blood Transfusion Reactions: Postoperative Nausea & Vomiting (PONV) Past Psychological History: No Psychological Hx Reported Smoking Status: Never smoker Past Alcohol Use History: None Reported Past Drug Use History: None Reported - Past Family History Mother Family Medical History: Renal Disease Father History Unknown: Yes General Exam - General Exam Comments Initial Comments: GENERAL: Patient is well-developed and well-nourished. Patient is nontoxic and well- hydrated and is in mild distress. ENT: Neck is soft and supple. No significant lymphadenopathy is noted. Oropharynx is clear. Moist mucous membranes. Neck has full range of motion without eliciting any pain. EYES: The sclera were anicteric and conjunctiva were pink and moist. Extraocular movements were intact and pupils were equal round and reactive to light. Eyelids were unremarkable. PULMONARY: She has decreased air movement an extra wheezing. CARDIOVASCULAR: There is a regular rate and rhythm without any murmurs gallops or rubs. ABDOMEN: Soft and nontender with normal bowel sounds. No palpable organomegaly was noted. There is no palpable pulsatile mass. SKIN: Skin is clear with no lesions or rashes and otherwise unremarkable. NEUROLOGIC: Patient is alert and oriented x3. Cranial nerves II through XII are grossly intact. Motor and sensory are also intact. Normal speech, volume and content. Symmetrical smile. MUSCULOSKELETAL: Normal extremities with adequate strength and full range of motion. LYMPHATICS: No significant lymphadenopathy is noted PSYCHIATRIC: Normal psychiatric evaluation. Limitations: no limitations Course Vital Signs 01/07/21 01/07/21 01/07/21 17:24 18:21 18:28 Temperature 98.2 F Pulse Rate 78 84 Respiratory 20 18 20 Rate Blood Pressure 135/61 O2 Sat by Pulse 93 L Oximetry 01/07/21 01/07/21 18:29 18:42 Temperature Pulse Rate 88 Respiratory 20 18 Rate Blood Pressure O2 Sat by Pulse Oximetry Medical Decision Making - Medical Decision Making Chest x-ray shows atelectasis versus infiltrate however because of the patient's symptoms think is more consistent with pneumonia so I will give her a shot of Rocephin emergency department send her home on antibiotics. After the patient received breathing treatments in the emergency room she was feeling considerably better. Disposition Clinical Impression: Pneumonia Disposition: HOME SELF-CARE Instructions (If sedation given, give patient instructions): Pneumonia (ED) Prescriptions: predniSONE [Deltasone] 40 mg PO DAILY #8 tab Azithromycin [Zithromax Tri-Abhinav] 500 mg PO DAILY #3 tab Is patient prescribed a controlled substance at d/c from ED?: No Referrals: Lore Combs DO [Primary Care Provider] - 1-2 days Time of Disposition: 19:37
--- NOTE | 2021-01-07 19:16 | XR ---
EXAMINATION TYPE: XR chest 2V DATE OF EXAM: 01/07/2021 COMPARISON: 11/04/2018. HISTORY: Difficulty breathing. TECHNIQUE: Frontal and lateral views of the chest are obtained. FINDINGS: There is mild to moderate bibasilar streaky opacity. No pleural effusion, or pneumothorax seen. The cardiac silhouette size is within normal limits. The osseous structures are intact. IMPRESSION: Bibasilar atelectasis versus infiltrates.
[2021-01-07] MEDS ORDERED: cefTRIAXone 1,000 MG VIAL (IM USE) IM STA (19:35)
[2021-01-07 20:12] VITALS: BP 134/68; PULSE 87; RESP 16
== END 2021-01-07 20:12 | disposition home or self-care (01) ==
LOC: EC 16:34
DX: J18.9 Pneumonia, unspecified organism (principal); J45.909 Unspecified asthma, uncomplicated; E11.9 Type 2 diabetes mellitus without complications; Z79.51 Long term (current) use of inhaled steroids; Z79.4 Long term (current) use of insulin
CPT/HCPCS: 94640; 71046; 99284; 96372; J0696; J7512

== ENCOUNTER 2022-08-16 14:18 | Emergency (ER) | payer MEDICARE, OTHER ==
[2022-08-16 14:31] VITALS: TEMP 100.3
[2022-08-16] MEDS ORDERED: SODIUM CHLORIDE 0.9% 500 ML 500 ML IV STA (14:35)
[2022-08-16] MEDS ORDERED: SODIUM CHLORIDE 0.9% 1,000 ML IV STA (14:35)
[2022-08-16] MEDS ORDERED: FAMOTIDINE 20 MG/2 ML VIAL IV STA (14:35)
[2022-08-16] MEDS ORDERED: ONDANSETRON 4 MG/2 ML VIAL IVP STA (14:35)
[2022-08-16] MEDS ORDERED: ACETAMINOPHEN IV (For NPO) 1,000 MG in EMPTY BAG 1 BAG IVPB STA (14:36)
--- NOTE | 2022-08-16 14:38 | ED ---
General Adult HPI - General Chief complaint: Nausea/Vomiting/Diarrhea Stated complaint: vomiting,diarrhea Time Seen by Provider: 08/16/22 14:30 Source: patient, EMS, RN notes reviewed Mode of arrival: EMS Limitations: no limitations - History of Present Illness Initial comments: Patient is a pleasant 62-year-old female presenting to the emergency department with concerns for vomiting and diarrhea. Onset of symptoms was around 12 hours ago. Patient has had several episodes of each. No abdominal pain. No cough or dyspnea. No history of similar symptoms previously. Patient did have minimal chills last night. No history of chronic similar symptoms previously - Related Data Home Medications Medication Instructions Recorded Confirmed Albuterol Nebulized [Ventolin 2.5 mg INHALATION RT-QID 10/14/18 10/14/18 Nebulized] Atorvastatin [Lipitor] 40 mg PO HS 10/14/18 10/14/18 Budesonide/Formoterol Fumarate 1 puff INHALATION RT-BID 10/14/18 10/14/18 [Symbicort 80-4.5 Mcg Inhaler] Insulin Aspart [NovoLOG] 10 units SQ AC-TID 10/14/18 10/14/18 Insulin Detemir (Levemir) [Levemir] 40 unit SQ HS 10/14/18 10/14/18 Montelukast [Singulair] 10 mg PO HS 10/14/18 10/14/18 Omeprazole 20 mg PO DAILY 10/14/18 10/14/18 Sertraline [Zoloft] 50 mg PO HS 10/14/18 10/14/18 metFORMIN HCL 500 mg PO BID 10/14/18 10/14/18 sitaGLIPtin [Januvia] 50 mg PO DAILY 10/14/18 10/14/18 Previous Rx's Medication Instructions Recorded Apixaban [Eliquis] 5 mg PO BID #60 tab 10/19/18 Amiodarone [Cordarone] 200 mg PO DAILY #30 tab 11/04/18 Formoterol Fumarate [Perforomist] 20 mcg INHALATION RT-BID #30 nebu 11/04/18 Ipratropium-Albuterol Nebulize 3 ml INHALATION RT-Q4H #90 11/04/18 [Duoneb 0.5 mg-3 mg/3 ml Soln] ampul.neb Magnesium Oxide [Mag-Ox] 400 mg PO DAILY #30 tab 11/04/18 Metoprolol Tartrate [Lopressor] 25 mg PO TID #90 tab 11/04/18 predniSONE [Deltasone] 20 mg PO DAILY #10 tab 11/04/18 Azithromycin [Zithromax Tri-Abhinav] 500 mg PO DAILY #3 tab 01/07/21 predniSONE [Deltasone] 40 mg PO DAILY #8 tab 01/07/21 Ondansetron Odt [Zofran Odt] 4 mg PO Q8HR PRN #10 tab 08/16/22 Allergies Allergy/AdvReac Type Severity Reaction Status Date / Time No Known Allergies Allergy Verified 01/07/21 18:46 Review of Systems ROS Statement: Those systems with pertinent positive or pertinent negative responses have been documented in the HPI. ROS Other: All systems not noted in ROS Statement are negative. Constitutional: Reports: chills Eyes: Denies: eye pain ENT: Denies: ear pain Respiratory: Denies: dyspnea Cardiovascular: Denies: chest pain Endocrine: Denies: fatigue Gastrointestinal: Reports: nausea, vomiting, diarrhea. Denies: abdominal pain Genitourinary: Denies: dysuria Musculoskeletal: Denies: back pain Skin: Denies: rash Neurological: Denies: weakness Past Medical History Past Medical History: Asthma, Diabetes Mellitus History of Any Multi-Drug Resistant Organisms: None Reported Past Surgical History: Unable to Obtain, Tubal Ligation Additional Past Surgical History / Comment(s): Bilateral thumbs Past Anesthesia/Blood Transfusion Reactions: Postoperative Nausea & Vomiting (PONV) Past Psychological History: No Psychological Hx Reported Smoking Status: Never smoker Past Alcohol Use History: None Reported Past Drug Use History: None Reported - Past Family History Mother Family Medical History: Renal Disease Father History Unknown: Yes General Exam Limitations: no limitations General appearance: alert, in no apparent distress Head exam: Present: normocephalic Eye exam: Present: normal appearance Neck exam: Present: normal inspection Respiratory exam: Present: normal lung sounds bilaterally Cardiovascular Exam: Present: regular rate, normal rhythm GI/Abdominal exam: Present: soft, normal bowel sounds. Absent: distended, tenderness, guarding, rebound, rigid, pulsatile mass Extremities exam: Present: normal inspection, other (Left wrist brace which patient states was from a fracture last week). Absent: pedal edema, calf tenderness Neurological exam: Present: alert Psychiatric exam: Present: normal affect, normal mood Skin exam: Present: normal color Course Vital Signs 08/16/22 08/16/22 08/16/22 14:25 15:47 16:26 Temperature 100.3 F H Pulse Rate 94 92 100 Respiratory 20 18 20 Rate Blood Pressure 142/88 110/50 O2 Sat by Pulse 90 L 100 96 Oximetry Medical Decision Making - Medical Decision Making Was pt. sent in by a medical professional or institution (MICHELET Jensen, [employer]ER, urgent care, hospital, or longterm...) When possible be specific @ -No Did you speak to anyone other than the patient for history (EMS, parent, family, police, friend...)? What history was obtained from this source @ -No Did you review nursing and triage notes (agree or disagree)? Why? @ -I reviewed and agree with nursing and triage notes Were old charts reviewed (outside hosp., previous admission, EMS record, old EKG, old radiological studies, urgent care reports/EKG's, longterm records)? Report findings @ -No old charts were reviewed Differential Diagnosis (chest pain, altered mental status, abdominal pain women, abdominal pain men, vaginal bleeding, weakness, fever, dyspnea, syncope, headache, dizziness, GI bleed, back pain, seizure, CVA, palpatations, mental health)? @ -not applicable EKG interpreted by me (3pts min.). @ -As above X-rays interpreted by me (1pt min.). @ -[Chest x-ray shows no acute process CT interpreted by me (1pt min.). @ -None done U/S interpreted by me (1pt. min.). @ -None done What testing was considered but not performed or refused? (CT, X-rays, U/S, labs)? Why? @ -None What meds were considered but not given or refused? Why? @ -None Did you discuss the management of the patient with other professionals ([facility] i.e. MICHELET Jensen, [employer]ER, lab, RT, psych nurse, aids social worker, staff appraiser, teacher, public relations officer, community case manager)? Give summary @ -No Was smoking cessation discussed for >3mins.? @ -No Was critical care preformed (if so, how long)? @ -No Were there social determinants of health that impacted care today? How? (Homelessness, low income, unemployed, alcoholism, drug addiction, transportation, low edu. Level, literacy, decrease access to med. care, retirement, rehab)? @ -No Was there de-escalation of care discussed even if they declined (Discuss DNR or withdrawal of care, Hospice)? DNR status @ -No What co-morbidities impacted this encounter? (DM, HTN, Smoking, COPD, CAD, Cancer, CVA, ARF, Chemo, Hep., AIDS, mental health diagnosis, sleep apnea, morbid obesity)? @ -None Was patient admitted / discharged? Hospital course, mention meds given and route, prescriptions, significant lab abnormalities, going to OR and other pertinent info. @ -Patient reevaluated and feeling better. Pulse ox 99% on room air. No dyspnea still. Abdomen soft and nontender. A meza updated on results and need for follow-up. Undiagnosed new problem with uncertain prognosis? @ -No Drug Therapy requiring intensive monitoring for toxicity (Heparin, Nitro, Insulin, Cardizem)? @ -No Were any procedures done? @ -No Diagnosis/symptom? @ -Vomiting Acute, or Chronic, or Acute on Chronic? @ -Acute Uncomplicated (without systemic symptoms) or Complicated (systemic symptoms)? @ -default Side effects of treatment? @ -No Exacerbation, Progression, or Severe Exacerbation? @ -No Poses a threat to life or bodily function? How? (Chest pain, [place], MT, pneumonia, PE, COPD, DKA, ARF, appy, cholecystitis, CVA, Diverticulitis, Homicidal, Suicidal, threat to staff... and all critical care pts) @ -No - Lab Data Result diagrams: 08/16/22 15:00 08/16/22 15:00 Lab Results 08/16/22 08/16/22 08/16/22 Range/Units 15:00 15:00 15:00 WBC 14.3 H (3.8-10.6) k/uL RBC 4.93 (3.80-5.40) m/uL Hgb 14.8 (11.4-16.0) gm/dL Hct 43.5 (34.0-46.0) % MCV 88.2 (80.0-100.0) fL MCH 29.9 (25.0-35.0) pg MCHC 34.0 (31.0-37.0) g/dL RDW 13.8 (11.5-15.5) % Plt Count 271 (150-450) k/uL MPV 8.4 Neutrophils % 86 % Lymphocytes % 6 % Monocytes % 4 % Eosinophils % 3 % Basophils % 0 % Neutrophils # 12.3 H (1.3-7.7) k/uL Lymphocytes # 0.9 L (1.0-4.8) k/uL Monocytes # 0.6 (0-1.0) k/uL Eosinophils # 0.4 (0-0.7) k/uL Basophils # 0.0 (0-0.2) k/uL D-Dimer 0.50 (<0.60) mg/L FEU Sodium 136 L (137-145) mmol/L Potassium 3.7 (3.5-5.1) mmol/L Chloride 104 (98-107) mmol/L Carbon Dioxide 24 (22-30) mmol/L Anion Gap 8 mmol/L BUN 18 H (7-17) mg/dL Creatinine 0.91 (0.52-1.04) mg/dL Est GFR (CKD-EPI)AfAm 78 (>60 ml/min/1.73 sqM) Est GFR (CKD-EPI)NonAf 67 (>60 ml/min/1.73 sqM) Glucose 189 H (74-99) mg/dL Calcium 8.5 (8.4-10.2) mg/dL Total Bilirubin 1.0 (0.2-1.3) mg/dL AST 19 (14-36) U/L ALT 22 (4-34) U/L Alkaline Phosphatase 118 (38-126) U/L Total Protein 6.4 (6.3-8.2) g/dL Albumin 3.8 (3.5-5.0) g/dL Amylase 40 (30-110) U/L Lipase 64 (23-300) U/L Influenza Type A (PCR) (Not Detectd) Influenza Type B (PCR) (Not Detectd) RSV (PCR) (Not Detectd) SARS-CoV-2 (PCR) (Not Detectd) 08/16/22 Range/Units 15:00 WBC (3.8-10.6) k/uL RBC (3.80-5.40) m/uL Hgb (11.4-16.0) gm/dL Hct (34.0-46.0) % MCV (80.0-100.0) fL MCH (25.0-35.0) pg MCHC (31.0-37.0) g/dL RDW (11.5-15.5) % Plt Count (150-450) k/uL MPV Neutrophils % % Lymphocytes % % Monocytes % % Eosinophils % % Basophils % % Neutrophils # (1.3-7.7) k/uL Lymphocytes # (1.0-4.8) k/uL Monocytes # (0-1.0) k/uL Eosinophils # (0-0.7) k/uL Basophils # (0-0.2) k/uL D-Dimer (<0.60) mg/L FEU Sodium (137-145) mmol/L Potassium (3.5-5.1) mmol/L Chloride (98-107) mmol/L Carbon Dioxide (22-30) mmol/L Anion Gap mmol/L BUN (7-17) mg/dL Creatinine (0.52-1.04) mg/dL Est GFR (CKD-EPI)AfAm (>60 ml/min/1.73 sqM) Est GFR (CKD-EPI)NonAf (>60 ml/min/1.73 sqM) Glucose (74-99) mg/dL Calcium (8.4-10.2) mg/dL Total Bilirubin (0.2-1.3) mg/dL AST (14-36) U/L ALT (4-34) U/L Alkaline Phosphatase (38-126) U/L Total Protein (6.3-8.2) g/dL Albumin (3.5-5.0) g/dL Amylase (30-110) U/L Lipase (23-300) U/L Influenza Type A (PCR) Not Detected (Not Detectd) Influenza Type B (PCR) Not Detected (Not Detectd) RSV (PCR) Not Detected (Not Detectd) SARS-CoV-2 (PCR) Not Detected (Not Detectd) Disposition Clinical Impression: Vomiting Disposition: HOME SELF-CARE Condition: Stable Instructions (If sedation given, give patient instructions): Acute Nausea and Vomiting (ED) Additional Instructions: Prescription has been sent to pharmacy. Please do follow-up with primary care physician in the next day or 2 for recheck. Return for not tolerating fluids, uncontrolled vomiting, fever, pain, worsening symptoms or other concerns. Prescriptions: Ondansetron Odt [Zofran Odt] 4 mg PO Q8HR PRN #10 tab PRN Reason: Nausea Is patient prescribed a controlled substance at d/c from ED?: No Referrals: Lore Combs DO [Primary Care Provider] - 1-2 days Time of Disposition: 16:59
--- NOTE | 2022-08-16 15:15 | XR ---
EXAMINATION TYPE: XR chest 2V DATE OF EXAM: 08/16/2022 3:10 PM COMPARISON: Chest radiographs from 01/07/2021 TECHNIQUE: XR chest 2V Frontal and lateral views of the chest. CLINICAL INDICATION:Female, 62 years old with history of abdominal pain; FINDINGS: Lungs/Pleura: There is no evidence of pleural effusion, focal consolidation, or pneumothorax. Hyperin flation. Chronic senescent parenchymal change. Pulmonary vascularity: Unremarkable. Heart/mediastinum: Cardiomediastinal silhouette is prominent in size. Musculoskeletal: No acute osseous pathology. IMPRESSION: COPD changes with bibasilar atelectasis.
[2022-08-16 15:34] LABS: Basophils % (A) 0 %; Eosinophils # (A) 0.4 k/uL (0-0.7); Eosinophils % (A) 3 %; HCT 43.5 % (34.0-46.0); HGB 14.8 gm/dL (11.4-16.0); Lymphocytes # (A) 0.9 k/uL (1.0-4.8); Lymphocytes % (A) 6 %; MCH 29.9 pg (25.0-35.0); MCV 88.2 fL (80.0-100.0); Mean Platelet Volume 8.4; Monocytes # (A) 0.6 k/uL (0-1.0); Monocytes % (A) 4 %; Neutrophils # (A) 12.3 k/uL (1.3-7.7); Neutrophils % (A) 86 %; Platelet Count 271 k/uL (150-450); RBC 4.93 m/uL (3.80-5.40); RDW 13.8 % (11.5-15.5); WBC 14.3 k/uL (3.8-10.6)
[2022-08-16 15:51] LABS: Albumin 3.8 g/dL (3.5-5.0); Calcium 8.5 mg/dL (8.4-10.2); Potassium 3.7 mmol/L (3.5-5.1); Total Protein 6.4 g/dL (6.3-8.2)
[2022-08-16 16:28] VITALS: BP 110/50; PULSE 100; RESP 20
== END 2022-08-16 17:09 | disposition home or self-care (01) ==
LOC: EC 14:18
DX: R11.10 Vomiting, unspecified (principal); R19.7 Diarrhea, unspecified; J45.909 Unspecified asthma, uncomplicated; E11.9 Type 2 diabetes mellitus without complications; Z79.4 Long term (current) use of insulin; Z79.51 Long term (current) use of inhaled steroids; Z79.84 Long term (current) use of oral hypoglycemic drugs; Z79.899 Other long term (current) drug therapy; Z20.822 Contact with and (suspected) exposure to COVID-19
CPT/HCPCS: 36415; 85379; 80053; 82150; 83690; 85025; 87636; 71046; 99284; 96365; 96375 ×2; J2405; J0131

== ENCOUNTER 2023-12-30 18:44 | Emergency (ER) | payer MEDICARE ==
[2023-12-30 18:51] VITALS: RESP 18; TEMP 98.1
[2023-12-30 19:55] LABS: Basophils # (A) 0.1 k/uL (0-0.2); Basophils % (A) 1 %; Eosinophils # (A) 0.5 k/uL (0-0.7); Eosinophils % (A) 6 %; HGB 12.9 gm/dL (11.4-16.0); Lymphocytes # (A) 2.8 k/uL (1.0-4.8); Lymphocytes % (A) 35 %; MCH 29.5 pg (25.0-35.0); MCHC 32.2 g/dL (31.0-37.0); MCV 91.7 fL (80.0-100.0); Mean Platelet Volume 8.3; Monocytes # (A) 0.5 k/uL (0-1.0); Monocytes % (A) 7 %; Neutrophils % (A) 49 %; Platelet Count 334 k/uL (150-450); RBC 4.36 m/uL (3.80-5.40); RDW 13.9 % (11.5-15.5); WBC 8.1 k/uL (3.8-10.6)
[2023-12-30 20:03] LABS: ALT 26 U/L (4-34); AST 28 U/L (14-36); African American GFR (CKD) 68 (>60 ml/min/1.73 sqM); Albumin 3.7 g/dL (3.5-5.0); Alkaline Phosphatase 90 U/L (38-126); Anion Gap 5 mmol/L; Blood Urea Nitrogen 9 mg/dL (7-17); Carbon Dioxide 27 mmol/L (22-30); Chloride 103 mmol/L (98-107); Glucose 348 mg/dL (74-99); Magnesium 1.3 mg/dL (1.6-2.3); Non-African American GFR(CKD) 59 (>60 ml/min/1.73 sqM); Potassium 3.8 mmol/L (3.5-5.1); Sodium 135 mmol/L (137-145); Total Bilirubin 0.6 mg/dL (0.2-1.3)
[2023-12-30 20:11] LABS: NT-Pro-B-Type Natriuretic Pept 96 pg/mL
[2023-12-30 20:13] LABS: Partial Thromboplastin Time 24.8 sec (22.0-30.0); Prothrombin Time 10.7 sec (10.0-12.5)
--- NOTE | 2023-12-30 20:14 | XR ---
EXAMINATION TYPE: XR chest 2V DATE OF EXAM: 12/30/2023 COMPARISON: 08/16/2022 HISTORY: 63 year-old female lower extremity swelling and shortness of breath, chest pain TECHNIQUE: PA and lateral views FINDINGS: Heart mildly enlarged. Hyperinflation. Mild interstitial density and some patchy bibasilar densities. Possible trace effusions. IMPRESSION: COPD with mild cardiomegaly and patchy bibasilar densities. Possible trace effusions. Possible sequel a of mild CHF. Correlate to exclude patchy bibasilar infiltrates.
--- NOTE | 2023-12-30 21:27 | ED ---
SOB HPI - General Chief Complaint: Recheck/Abnormal Lab/Rx Stated Complaint: ankle swelling/SOB Time Seen by Provider: 12/30/23 20:30 Source: patient, family Mode of arrival: ambulatory Limitations: no limitations - History of Present Illness Initial Comments: This patient is a 63-year-old woman with history of atrial fibrillation, diabetes, COPD, who presents with complaint that she has noticed bilateral ankle swelling and some shortness of breath particularly with exertion since yesterday. Patient denies history of previous congestive heart failure or DVT. She has not noted other symptoms, no fever or chills. No productive cough, no chest pain. MD Complaint: shortness of breath Onset/Timin -: days(s) Severity scale (1-10): 0 Consistency: constant Improves With: nothing Worsens With: exertion Known History Of: COPD, asthma, diabetes Associated Symptoms: denies other symptoms Treatments Prior to Arrival: none - Related Data Home Oxygen Therapy: No Home Medications Medication Instructions Recorded Confirmed Albuterol Nebulized [Ventolin 2.5 mg INHALATION RT-QID 10/14/18 10/14/18 Nebulized] Atorvastatin [Lipitor] 40 mg PO HS 10/14/18 10/14/18 Budesonide/Formoterol Fumarate 1 puff INHALATION RT-BID 10/14/18 10/14/18 [Symbicort 80-4.5 Mcg Inhaler] Insulin Aspart [NovoLOG] 10 units SQ AC-TID 10/14/18 10/14/18 Insulin Detemir (Levemir) [Levemir] 40 unit SQ HS 10/14/18 10/14/18 Montelukast [Singulair] 10 mg PO HS 10/14/18 10/14/18 Omeprazole 20 mg PO DAILY 10/14/18 10/14/18 Sertraline [Zoloft] 50 mg PO HS 10/14/18 10/14/18 metFORMIN HCL 500 mg PO BID 10/14/18 10/14/18 sitaGLIPtin [Januvia] 50 mg PO DAILY 10/14/18 10/14/18 Previous Rx's Medication Instructions Recorded Apixaban [Eliquis] 5 mg PO BID #60 tab 10/19/18 Amiodarone [Cordarone] 200 mg PO DAILY #30 tab 11/04/18 Formoterol Fumarate [Perforomist] 20 mcg INHALATION RT-BID #30 nebu 11/04/18 Ipratropium-Albuterol Nebulize 3 ml INHALATION RT-Q4H #90 11/04/18 [Duoneb 0.5 mg-3 mg/3 ml Soln] ampul.neb Magnesium Oxide [Mag-Ox] 400 mg PO DAILY #30 tab 11/04/18 Metoprolol Tartrate [Lopressor] 25 mg PO TID #90 tab 11/04/18 predniSONE [Deltasone] 20 mg PO DAILY #10 tab 11/04/18 Azithromycin [Zithromax Tri-Abhinav] 500 mg PO DAILY #3 tab 01/07/21 predniSONE [Deltasone] 40 mg PO DAILY #8 tab 01/07/21 Ondansetron Odt [Zofran Odt] 4 mg PO Q8HR PRN #10 tab 08/16/22 Furosemide [Lasix] 20 mg PO DAILY #7 tab 12/30/23 Allergies Allergy/AdvReac Type Severity Reaction Status Date / Time No Known Allergies Allergy Verified 12/30/23 18:51 Review of Systems ROS Statement: Those systems with pertinent positive or pertinent negative responses have been documented in the HPI. ROS Other: All systems not noted in ROS Statement are negative. Constitutional: Denies: fever, chills, weakness Respiratory: Reports: dyspnea. Denies: cough, wheezes Cardiovascular: Reports: dyspnea on exertion, edema. Denies: chest pain, pa lpitations, orthopnea, syncope Gastrointestinal: Denies: abdominal pain, nausea, vomiting, melena, hematochezia Genitourinary: Denies: dysuria, hematuria Musculoskeletal: Denies: back pain Skin: Denies: rash Neurological: Denies: headache, weakness Past Medical History Past Medical History: Asthma, Diabetes Mellitus History of Any Multi-Drug Resistant Organisms: None Reported Past Surgical History: Unable to Obtain, Tubal Ligation Additional Past Surgical History / Comment(s): Bilateral thumbs Past Anesthesia/Blood Transfusion Reactions: Postoperative Nausea & Vomiting (PONV) Past Psychological History: No Psychological Hx Reported Smoking Status: Never smoker Past Alcohol Use History: None Reported Past Drug Use History: None Reported - Past Family History Mother Family Medical History: Renal Disease Father History Unknown: Yes General Exam Limitations: no limitations General appearance: alert, in no apparent distress Head exam: Present: atraumatic, normocephalic Eye exam: Present: normal appearance. Absent: scleral icterus, conjunctival injection ENT exam: Present: normal oropharynx Neck exam: Present: normal inspection Respiratory exam: Absent: respiratory distress, wheezes, rales, rhonchi, stridor, accessory muscle use, decreased breath sounds, prolonged expiratory Cardiovascular Exam: Present: regular rate, normal rhythm, normal heart sounds. Absent: systolic murmur, diastolic murmur, rubs, gallop GI/Abdominal exam: Present: soft. Absent: distended, tenderness, guarding, rebo und, rigid, mass Extremities exam: Present: normal inspection, normal capillary refill, pedal edema (Mild bilateral ankle edema. No palpable cord. No Homans' sign.). Absent: calf tenderness Back exam: Present: normal inspection. Absent: CVA tenderness (R), CVA tenderness (L) Neurological exam: Present: alert Skin exam: Present: warm, dry, intact, normal color. Absent: rash Course Vital Signs 12/30/23 12/30/23 18:48 23:35 Temperature 98.1 F Pulse Rate 80 74 Respiratory 18 18 Rate Blood Pressure 146/81 124/69 O2 Sat by Pulse 92 L 94 L Oximetry Medical Decision Making - Medical Decision Making The patient had chest x-ray that I interpreted as negative for acute infiltrate, pneumothorax, congestive heart failure Was pt. sent in by a medical professional or institution (MICHELET Jensen, HANDBOOK WRITER, urgent care, hospital, or long-term...) When possible be specific @ -[No] Did you speak to anyone other than the patient for history (EMS, parent, family, police, friend...)? What history was obtained from this source @ -[No] Did you review nursing and triage notes (agree or disagree)? Why? @ -[I reviewed and agree with nursing and triage notes] Were old charts reviewed (outside hosp., previous admission, EMS record, old EKG, old radiological studies, urgent care reports/EKG's, long-term records)? Report findings @ -[No old charts were reviewed] Differential Diagnosis (chest pain, altered mental status, abdominal pain women, abdominal pain men, vaginal bleeding, weakness, fever, dyspnea, syncope, headache, dizziness, GI bleed, back pain, seizure, CVA, palpatations, mental health, musculoskeletal)? @ -[Differential diagnosis for leg edema includes: Cellulitis, venous insufficiency, congestive heart failure, renal failure, liver disease, decreased osmotic pressure, DVT, this list not comprehensive EKG interpreted by me (3pts min.). @ -[I interpreted as above] X-rays interpreted by me (1pt min.). @ -[I interpreted as above CT interpreted by me (1pt min.). @ -[None done] U/S interpreted by me (1pt. min.). @ -[None done] What testing was considered but not performed or refused? (CT, X-rays, U/S, labs)? Why? @ -[None] What meds were considered but not given or refused? Why? @ -[None] Did you discuss the management of the patient with other professionals (professionals i.e. , PA, HANDBOOK WRITER, lab, RT, psych nurse, social insurance specialist, repairer auto clocks, teacher, workers' compensation hearings officer, corrections caseworker)? Give summary @ -[No] Was smoking cessation discussed for >3mins.? @ -[No] Was critical care preformed (if so, how long)? @ -[No] Were there social determinants of health that impacted care today? How? (Homelessness, low income, unemployed, alcoholism, drug addiction, transportation, low edu. Level, literacy, decrease access to med. care, residential, rehab)? @ -[No] Was there de-escalation of care discussed even if they declined (Discuss DNR or withdrawal of care, Hospice)? DNR status @ -[No] What co-morbidities impacted this encounter? (DM, HTN, Smoking, COPD, CAD, Cancer, CVA, ARF, Chemo, Hep., AIDS, mental health diagnosis, sleep apnea, morbid obesity)? @ -Diabetes, hypertension Was patient admitted / discharged? Hospital course, mention meds given and route , prescriptions, significant lab abnormalities, going to OR and other pertinent info. @ -This patient is 63-year-old woman with leg edema. The workup does not establish exact etiology. The patient not in any distress and would like to have further workup as outpatient. Will give short course of diuretic treatment and have patient follow-up. Discussed return parameters Undiagnosed new problem with uncertain prognosis? @ -[No] Drug Therapy requiring intensive monitoring for toxicity (Heparin, Nitro, Insulin, Cardizem)? @ -[No] Were any procedures done? @ -[No] Diagnosis/symptom? @ -[Acute leg edema Acute hyperglycemia and diabetic patient Acute hypomagnesemia Acute, or Chronic, or Acute on Chronic? @ -[Acute Uncomplicated (without systemic symptoms) or Complicated (systemic symptoms)? @ -[Uncomplicated Side effects of treatment? @ -[No] Exacerbation, Progression, or Severe Exacerbation? @ -[No] Poses a threat to life or bodily function? How? (Chest pain, USA, ID, pneumonia, PE, COPD, DKA, ARF, appy, cholecystitis, CVA, Diverticulitis, Homicidal, Suicidal, threat to staff... and all critical care pts) @ -[No] - Lab Data Result diagrams: 12/30/23 19:19 12/30/23 19:19 Lab Results 12/30/23 12/30/23 12/30/23 Range/Units 19:19 19:19 19:19 WBC 8.1 (3.8-10.6) k/uL RBC 4.36 (3.80-5.40) m/uL Hgb 12.9 (11.4-16.0) gm/dL Hct 40.0 (34.0-46.0) % MCV 91.7 (80.0-100.0) fL MCH 29.5 (25.0-35.0) pg MCHC 32.2 (31.0-37.0) g/dL RDW 13.9 (11.5-15.5) % Plt Count 334 (150-450) k/uL MPV 8.3 Neutrophils % 49 % Lymphocytes % 35 % Monocytes % 7 % Eosinophils % 6 % Basophils % 1 % Neutrophils # 4.0 (1.3-7.7) k/uL Lymphocytes # 2.8 (1.0-4.8) k/uL Monocytes # 0.5 (0-1.0) k/uL Eosinophils # 0.5 (0-0.7) k/uL Basophils # 0.1 (0-0.2) k/uL PT 10.7 (10.0-12.5) sec INR 1.0 (<1.2) APTT 24.8 (22.0-30.0) sec Sodium 135 L (137-145) mmol/L Potassium 3.8 (3.5-5.1) mmol/L Chloride 103 (98-107) mmol/L Carbon Dioxide 27 (22-30) mmol/L Anion Gap 5 mmol/L BUN 9 (7-17) mg/dL Creatinine 1.02 (0.52-1.04) mg/dL Est GFR (CKD-EPI)AfAm 68 (>60 ml/min/1.73 sqM) Est GFR (CKD-EPI)NonAf 59 (>60 ml/min/1.73 sqM) Glucose 348 H (74-99) mg/dL Calcium 9.0 (8.4-10.2) mg/dL Magnesium 1.3 L (1.6-2.3) mg/dL Total Bilirubin 0.6 (0.2-1.3) mg/dL AST 28 (14-36) U/L ALT 26 (4-34) U/L Alkaline Phosphatase 90 (38-126) U/L Troponin I (0.000-0.034) ng/mL NT-Pro-B Natriuret Pep 96 pg/mL Total Protein 6.0 L (6.3-8.2) g/dL Albumin 3.7 (3.5-5.0) g/dL Influenza Type A (PCR) (Not Detectd) Influenza Type B (PCR) (Not Detectd) RSV (PCR) (Not Detectd) SARS-CoV-2 (PCR) (Not Detectd) 12/30/23 12/30/23 Range/Units 19:19 21:09 WBC (3.8-10.6) k/uL RBC (3.80-5.40) m/uL Hgb (11.4-16.0) gm/dL Hct (34.0-46.0) % MCV (80.0-100.0) fL MCH (25.0-35.0) pg MCHC (31.0-37.0) g/dL RDW (11.5-15.5) % Plt Count (150-450) k/uL MPV Neutrophils % % Lymphocytes % % Monocytes % % Eosinophils % % Basophils % % Neutrophils # (1.3-7.7) k/uL Lymphocytes # (1.0-4.8) k/uL Monocytes # (0-1.0) k/uL Eosinophils # (0-0.7) k/uL Basophils # (0-0.2) k/uL PT (10.0-12.5) sec INR (<1.2) APTT (22.0-30.0) sec Sodium (137-145) mmol/L Potassium (3.5-5.1) mmol/L Chloride (98-107) mmol/L Carbon Dioxide (22-30) mmol/L Anion Gap mmol/L BUN (7-17) mg/dL Creatinine (0.52-1.04) mg/dL Est GFR (CKD-EPI)AfAm (>60 ml/min/1.73 sqM) Est GFR (CKD-EPI)NonAf (>60 ml/min/1.73 sqM) Glucose (74-99) mg/dL Calcium (8.4-10.2) mg/dL Magnesium (1.6-2.3) mg/dL Total Bilirubin (0.2-1.3) mg/dL AST (14-36) U/L ALT (4-34) U/L Alkaline Phosphatase (38-126) U/L Troponin I <0.012 (0.000-0.034) ng/mL NT-Pro-B Natriuret Pep pg/mL Total Protein (6.3-8.2) g/dL Albumin (3.5-5.0) g/dL Influenza Type A (PCR) Not Detected (Not Detectd) Influenza Type B (PCR) Not Detected (Not Detectd) RSV (PCR) Not Detected (Not Detectd) SARS-CoV-2 (PCR) Not Detected (Not Detectd) - EKG Data -: EKG Interpreted by Ne EKG shows normal: sinus rhythm, axis (Determinant), intervals (Normal), QRS complexes (Normal) Rate: normal (76 bpm) Interpretation: nonspecific ST-T wave changes Disposition Clinical Impression: Edema, Hyperglycemia due to diabetes mellitus, Hypomagnesemia Disposition: HOME SELF-CARE Condition: Good Prescriptions: Furosemide [Lasix] 20 mg PO DAILY #7 tab Is patient prescribed a controlled substance at d/c from ED?: No Referrals: Lore Combs DO [Primary Care Provider] - 1-2 days
[2023-12-30 23:36] VITALS: BP 124/69; PULSE 74
== END 2023-12-31 00:14 | disposition home or self-care (01) ==
LOC: EC 18:44
CPT/HCPCS: 36415; 71046; 80053; 83735; 83880; 84484; 85025; 85610; 85730; 87636; 93005; 99285